=== PATIENT | female | born 1940 | race Caucasian/White ===

== ENCOUNTER → 2016-08-17 | Outpatient (CLI) | payer OTHER ==
[~2016-08-17] MED LIST: ASPCH81X PO; CHOL1TAB42 PO; CLOP1TAB15 PO; FAMO1TAB71 PO; LORA-741 PO; POTASSIUM PO
== END | disposition home or self-care (01) ==
LOC: C.LABSPEC 15:00
PROVIDERS: ATTEND Internal Medicine
DX: N39.0 Urinary tract infection, site not specified (principal)

== ENCOUNTER → 2016-08-27 | Outpatient (CLI) | payer OTHER | END | disposition home or self-care (01) | LOC: C.LABSPEC 13:00 | PROVIDERS: ATTEND Internal Medicine | DX: N39.0 Urinary tract infection, site not specified (principal) ==

== ENCOUNTER → 2016-11-12 | Outpatient (CLI) | payer OTHER ==
[2016-11-12 14:53] LABS: BASO % 0.3 %; BASO ABS # 0.02 K/uL (0-0.2); COMPLETE YES; HEMATOCRIT 37.8 % (37-47); IG% 0.2 %; LYMPH % 28.9 %; MEAN CELL VOLUME 88.5 fL (80-100); MEAN CORPUSCULAR HEMOGLOBIN 28.3 pg (25-34); MONO % 6.6 %; PLATELET COUNT 265 K/uL (130-400); RED BLOOD COUNT 4.27 M/uL (4.2-5.4); WHITE BLOOD COUNT 6.23 K/uL (4.8-10.8)
[2016-11-12 15:07] LABS: ALT/SGPT 27 U/L (12-78); AST/SGOT 15 U/L (15-37); BLOOD UREA NITROGEN 14 mg/dl (7-18); BUN/CREATININE RATIO 11.6 (10-20); CARBON DIOXIDE 28 mmol/L (21-32); CHLORIDE 104 mmol/L (98-107); CHOLESTEROL 243 mg/dl (0-200); GLUCOSE 113 mg/dl (70-99); SODIUM 140 mmol/L (136-145)
[2016-11-12 15:16] LABS: CALCIUM 9.5 mg/dl (8.5-10.1)
[2016-11-12 15:17] LABS: ALB/GLOB RATIO 1.1 (0.9-2); ALKALINE PHOSPHATASE 76 U/L (45-117); CHOLESTEROL/HDL RATIO 4.3; HDL CHOLESTEROL 56 mg/dl; TRIGLYCERIDES 200 mg/dl (0-150); VERY LOW DENSITY LIPOPROT CALC 40 mg/dl
== END | disposition home or self-care (01) ==
LOC: C.LABSPEC 14:39
PROVIDERS: ATTEND Internal Medicine
DX: E55.9 Vitamin D deficiency, unspecified (principal); E78.5 Hyperlipidemia, unspecified; R53.83 Other fatigue; M19.90 Unspecified osteoarthritis, unspecified site

== ENCOUNTER → 2016-12-23 | Outpatient (CLI) | payer OTHER ==
--- NOTE | 2016-12-23 16:15 | MAMMOGRAPHY REPORT ---
BILATERAL DIGITAL SCREENING MAMMOGRAM WITH CAD: 12/23/2016 CLINICAL HISTORY: Routine screening. Patient has no complaints. TECHNIQUE: Bilateral CC and MLO views were obtained. Current study was also evaluated with a Computer Aided Detection (CAD) system. COMPARISON: Comparison is made to exams dated: 12/17/2015 mammogram, 03/27/2014 mammogram, 02/28/2013 david mogram, 02/29/2012 mammogram, and 02/24/2012 mammogram - [facility]. BREAST COMPOSITION: The tissue of both breasts is heterogeneously dense, which may obscure small mas ses. FINDINGS: There is stable nodularity bilaterally. There are benign calcifications and minimal vascul ar calcification in the breasts. No suspicious spiculated or irregular mass, architectural distortio n or cluster of new, suspicious microcalcifications is seen. IMPRESSION: ACR BI-RADS CATEGORY 1: NEGATIVE There is no mammographic evidence of malignancy. A 1 year screening mammogram is recommended. The pa tient will receive written notification of the results. Approximately 10% of breast cancers are not detected with mammography. A negative mammographic report should not delay biopsy if a clinically suggestive mass is present. Tamika Benson M.D. ay/:12/23/2016 15:59:06 Manager [employer]: Charla RUIZ(R)(M), [facility] letter sent: Normal 1/2 BI-RADS Code: ACR BI-RADS Category 1: Negative
== END | disposition home or self-care (01) ==
LOC: C.MAMM 13:41
PROVIDERS: ATTEND Internal Medicine
DX: Z12.31 Encounter for screening mammogram for malignant neoplasm of breast (principal)

== ENCOUNTER → 2017-01-14 | Outpatient (CLI) | payer OTHER ==
[2017-01-14 12:41] LABS: BASO % 0.3 %; BASO ABS # 0.02 K/uL (0-0.2); COMPLETE YES; EOS % 0.7 %; HEMATOCRIT 39.2 % (37-47); IG% 0.3 %; LYMPH % 25.6 %; MEAN CELL VOLUME 87.3 fL (80-100); MEAN CORPUSCULAR HEMOGLOBIN 27.8 pg (25-34); MEAN CORPUSCULAR HGB CONC 31.9 g/dl (32-36); MEAN PLATELET VOLUME 9.8 fL (7.4-10.4); MONO % 6.1 %; PLATELET COUNT 302 K/uL (130-400); RED BLOOD COUNT 4.49 M/uL (4.2-5.4); WHITE BLOOD COUNT 7.03 K/uL (4.8-10.8)
[2017-01-14 13:01] LABS: ALT/SGPT 23 U/L (12-78); AMYLASE 50 U/L (25-115); AST/SGOT 16 U/L (15-37); BLOOD UREA NITROGEN 12 mg/dl (7-18); BUN/CREATININE RATIO 8.4 (10-20); CALCIUM 9.6 mg/dl (8.5-10.1); CARBON DIOXIDE 27 mmol/L (21-32); CHLORIDE 104 mmol/L (98-107); GLUCOSE 104 mg/dl (70-99); SODIUM 140 mmol/L (136-145)
[2017-01-14 13:04] LABS: ALKALINE PHOSPHATASE 66 U/L (45-117)
[2017-01-14 13:11] LABS: ESTIMATED AVERAGE GLUCOSE 134 mg/dl; HA1C FLAG Normal (Normal)
--- NOTE | 2017-01-18 12:37 | CODING QUERY MEDICAL NECESSITY ---
SUPPORTING DIAGNOSIS NEEDED A supporting diagnosis is required for the test/procedure performed on this patient in order for us to be reimbursed by the patient's insurance. Please provide a supporting diagnosis for the following test/procedure listed below next to the test name along with your signature. *If there is no additional diagnosis for this patient that would support the following test/procedure please document that below next to the test/procedure. Test(s)/Procedure(s) that require a supporting diagnosis: * HEMOGLOBIN A1C DIAGNOSIS: Provider Signature: Date: Thank you Michelle Upton [employer] Once completed, please kindly fax back to [phone] For questions please call [phone]
== END | disposition home or self-care (01) ==
LOC: C.LABSPEC 12:19
PROVIDERS: ATTEND Internal Medicine
DX: R10.9 Unspecified abdominal pain (principal); R53.83 Other fatigue; R73.9 Hyperglycemia, unspecified

== ENCOUNTER → 2017-07-21 | Outpatient (CLI) | payer OTHER ==
[~2017-07-21] MED LIST changes: +FAMO-103 PO; -FAMO1TAB71 PO
== END | disposition home or self-care (01) ==
LOC: C.LABSPEC 14:48
PROVIDERS: ATTEND Internal Medicine
DX: N39.0 Urinary tract infection, site not specified (principal)

== ENCOUNTER → 2017-10-31 | Outpatient (CLI) | payer OTHER ==
--- NOTE | 2017-10-31 15:15 | DIAGNOSTIC IMAGING REPORT ---
L-SPINE MIN 4 VIEWS ROUTINE HISTORY: 77 years-old Female LUMBAR RADICULOPATHY acute low back pain COMPARISON: Lumbar spine radiographs 01/23/2016 TECHNIQUE: 5 views of the lumbar spine FINDINGS: There are 5 nonrib-bearing lumbar type vertebral segments present. 5 mm anterolisthesis L5 on S1 has progressed from prior study. No definite spondylolysis. Moderate to severe intervertebral disc space narrowing at L1-L2 has also progressed from prior. Mild multilevel endplate spurring with mostly moderate multilevel facet arthrosis. No acute compression deformity. IMPRESSION: 1. No acute fracture identified. 2. 5 mm anterolisthesis L5 on S1 is likely degenerative in nature. 3. Multilevel degenerative changes of the lumbar spine as above. The above report was generated using voice recognition software. It may contain grammatical, syntax or spelling errors. Electronically signed by: Kevin Muse M.D. 10/31/2017 3:13 PM Dictated Date/Time: 10/31/2017 3:11 PM
== END | disposition home or self-care (01) ==
LOC: C.RAD 14:38
PROVIDERS: ATTEND Internal Medicine
DX: M54.16 Radiculopathy, lumbar region (principal)

== ENCOUNTER 2019-06-12 09:08 | Inpatient (IN) ==
[2019-06-12] MEDS ORDERED: SODIUM CHLORIDE 0.9% 500 ML IV ONE (09:44)
--- NOTE | 2019-06-12 09:56 | XRay Report ---
SINGLE VIEW CHEST CLINICAL HISTORY: Atypical chest pain. FINDINGS: An AP, portable, upright chest radiograph is compared to study dated 01/05/2018. The cardiom ediastinal silhouette is top normal for projection. The mitral annulus is densely calcified. Chronic interstitial thickening and chronic elevation of the right hemidiaphragm are similar to previous. No airspace consolidation or large pleural effusion is identified. No pneumothorax is seen. The skeletal structures are osteopenic. The bony thorax is grossly intact. IMPRESSION: No active disease in the chest. Electronically signed by: Tal Tejeda M.D. 06/12/2019 9:54 AM
[2019-06-12] MEDS ORDERED: ACETAMINOPHEN 1,000 MG/100 ML VIAL IV STA (10:05)
[2019-06-12 10:09] LABS: Basophils # (auto) 0.02 K/uL (0-0.2); Basophils % (auto) 0.2 %; Eosinophils # (auto) 0.02 K/uL (0-0.5); Eosinophils % (auto) 0.2 %; Hematocrit (blood only) 35.1 % (37-47); Hemoglobin 11.4 g/dL (12.0-16.0); Immature Granulocytes # (auto) 0.03 K/uL (0.00-0.02); Immature Granulocytes % (auto) 0.2 %; Lymphocytes # (auto) 0.93 K/uL (1.2-3.4); Mean Corpuscular Hemoglobin 28.4 pg (25-34); Mean Corpuscular Hgb Conc 32.5 g/dL (32-36); Mean Corpuscular Volume 87.5 fL (80-100); Mean Platelet Volume 9.8 fL (7.4-10.4); Monocytes # (auto) 0.94 K/uL (0.11-0.59); Monocytes % (auto) 7.1 %; Neutrophils # (auto) 11.32 K/uL (1.4-6.5); Neutrophils % (auto) 85.3 %; Platelet Count 253 K/uL (130-400); RDW Coefficient of Variation 15.2 % (11.5-14.5); RDW Standard Deviation 49.4 fL (36.4-46.3); Red Blood Count 4.01 M/uL (4.2-5.4); White Blood Count 13.26 K/uL (4.8-10.8)
[2019-06-12 10:24] LABS: Alanine Aminotransferase 16 U/L (12-78); Albumin Level 3.5 gm/dl (3.4-5.0); Aspartate Aminotransferase 14 U/L (15-37); BUN Creatinine Ratio 12.7 (10-20); Blood Urea Nitrogen 15 mg/dl (7-18); Calcium 9.2 mg/dl (8.5-10.1); Carbon Dioxide 25 mmol/L (21-32); Chloride 105 mmol/L (98-107); Creatinine Clr Calc Pharmacy 42.8 ml/min; Est GFR (African American) 51.9; Est GFR (Non-African American) 44.8; Glucose 97 mg/dl (70-99); Lipase 120 U/L (73-393); Sodium 136 mmol/L (136-145)
[2019-06-12 10:35] LABS: Albumin Globulin Ratio 0.9 (0.9-2); Alkaline Phosphatase 67 U/L (45-117); Bilirubin,Total 0.7 mg/dl (0.2-1); Phosphorus 2.5 mg/dl (2.5-4.9); Total Protein 7.5 gm/dl (6.4-8.2); Troponin I < 0.015 ng/ml (0-0.045)
[2019-06-12] MEDS ORDERED: OPTIRAY 320 125ml IV PRN (10:56)
--- NOTE | 2019-06-12 11:04 | CT Scan Report ---
CT abd pelvis IV con only CT DOSE: HISTORY: Dyspnea right flank pain TECHNIQUE: Multiaxial CT images of the abdomen and pelvis were performed following the use of intrave nous contrast. A dose lowering technique was utilized adhering to the principles of ALARA. COMPARISON STUDY: None. FINDINGS: Small parenchymal infiltrate right base. Mild bibasilar emphysematous change. Trace pleural fluid right base. Mild fatty replacement of the liver. Potential early cirrhotic change. Spleen is unremarkable. Mild hyperplastic change of the left adrenal gland. Small bilateral renal cysts. Moderate renal cortical scarring bilaterally. No evidence for hydronephr osis. Nonobstructive bowel pattern. Normal appendix. No significant abdominal pelvic or inguinal adenopathy . IMPRESSION: 1. No acute process of the abdomen or pelvis. 2. Parenchymal infiltrate right lung base combined with a very small right pleural effusion. The above report was generated using voice recognition software. It may contain grammatical, syntax or spelling errors. Electronically signed by: Сергей Bowles M.D. 06/12/2019 11:02 AM
--- NOTE | 2019-06-12 11:25 | CT Scan Report ---
CT angio chest PE protocol CT DOSE: 1142.82 mGy.cm HISTORY: 78 years-old Female with PE. Acute atypical chest pain TECHNIQUE: Multiple CTA images of the chest were obtained after the intravenous administration of 118 ml Optiray 320. Coronal and sagittal MIPS were obtained from the axial data set and were submitted for review. All measurements were obtained according to NASCET criteria. A dose lowering technique w as utilized adhering to the principles of ALARA. COMPARISON: CT abdomen and pelvis and chest radiograph of same day FINDINGS: CTA: Mild to moderate cardiomegaly. No pericardial effusion. Mitral annular calcifications are noted. Ther e is no thoracic aortic aneurysm or dissection. There is patency of the imaged great vessels. Mild to rtuosity of the descending thoracic aorta. Extensive bilateral pulmonary emboli noted involving the l obar, segmental and subsegmental branches throughout the right lung, segmental and subsegmental branc hes of the left lower lobe. Right left main pulmonary arteries are unremarkable. No evidence of right heart strain. Fluid that CT CHEST: Unremarkable thyroid. Nonspecific mildly enlarged subcarinal and right hilar lymph nodes measure up t o 11 mm. Small left Bochdalek hernia. Trace right pleural effusion with right lung base consolidative and alveolar opacities. There is mild bilateral bronchial wall thickening. There is no overt pulmona ry edema, suspicious pulmonary nodule or mass identified. Indeterminate 4 mm subpleural solid nodule of the basal right lower lobe, image 77 series 4. Moderate hiatal hernia. 1.3 cm left adrenal gland adenoma. Mild hepatic steatosis. Soft tissues are w ithin normal limits. Degenerative changes of the shoulders and spine. There are no suspicious bone le sions identified. Mild convex right curvature of the midthoracic spine. IMPRESSION: 1. Extensive right greater than left pulmonary emboli as above. 2. Trace right pleural effusion with right lung base opacities suggestive of atelectasis and/or devel oping pulmonary infarction. 3. Cardiomegaly without acute aortic pathology. 4. 4 mm solid nodule the right lower lobe. 5. Additional findings as above. Please refer to below summary of Fleischner criteria recommendations for follow-up of incidental CT n odules (Nando Woody, Guidelines for management of small pulmonary nodules detected on CT scans: A sta tement from the Fleischner Society, Radiology 237: [phone].) SOLID NODULES Solitary nodule size: <6 mm * Low risk patients: no follow-up needed * high risk patients: optional CT at 12 months Note: newly detected indeterminate nodule in persons 35 years of age or older. * Low risk patients: minimal or absent history of smoking and/or other known risk factors * high risk patients: history of smoking or of other known risk factors (e.g. first degree relative with lung cancer, or exposure to asbestos, radon, uranium) * if a nodule up to 8 mm is partly solid or is ground glass further follow-up is required after 24 m onths to exclude possible slow growing adenocarcinoma ([place]ISETTE) The above report was generated using voice recognition software. It may contain grammatical, syntax o r spelling errors. Electronically signed by: Kevin Muse M.D. 06/12/2019 11:24 AM
[2019-06-12 11:47] LABS: Appearance Urine Clear (Clear); Bilirubin Urine Negative (Negative); Blood Urine Negative (Negative); Color Urine Yellow; Glucose Urine UA Negative (Negative); Ketones Urine 2+ (Negative); Leukocyte Esterase Urine Negative (Negative); Nitrite Urine Negative (Negative); Protein Urine Negative (Negative); Urobilinogen Urine Negative (Negative); pH Urine 5.5 (4.5-7.5)
[2019-06-12 12:18] LABS: INR 1.1 (0.9-1.1); Partial Thromboplastin Ratio 1.1; Partial Thromboplastin Time 29.6 Seconds (21.0-31.0); Prothrombin Time 11.1 Seconds (9.0-12.0)
[2019-06-12] MEDS ORDERED: HEPARIN SOD 5,000 UNIT/0.5 ML VIAL ONE (12:32)
--- NOTE | 2019-06-12 12:39 | History & Physical Report ---
Date of Service June 12, 2019 Assessment & Plan (1) Pulmonary emboli: Uncertain etiology but has had several episodes of blood clots in her life, mother with hx of blood clots as well Hypercoag workup pending Heparing gtt with transition to coumadin, 10mg today and tomorrow INR on 06/14 LE US pending given LE pain (2) Recurrent UTI: Has been on nitrofurantoin since 03/20 and no further issues UA on admission is neg (3) Amaurosis fugax of left eye: due to retinal clot Plavix, aspirin 81mg--continue (4) Anxiety: PRN ativan States she takes QD (5) Lung nodule: Noted on CTA Pt has no personal hx of smoking, but does have second hand smoke exposure from a father who smoked in the home and a who did the same x6 yrs before he quit 4mm is noted to be of concern in a pt with risk factors with f/u CT in 12 months If no genetic predisposition for clotting, may need t/c lung cancer as cause for clotting (6) Hx of blood clots: No hx of genetic testing Not currently on anticoagulation (7) DVT prophylaxis: Heparin for DVT proph History of Present Illness Primary Care Provider: Nicolas Moreno MD 78 y/o F c/o R sided back pain. Pt states she has been having this pain for at least a week. It initially would come and go, but has been more constant and intense since Tuesday. Pain is most intense to the R mid back, below the scapula, but she has also had some anterior pain at times. It is worse when she takes a deep breath or tries to lie flat. Pt also has noted that when she is walking around, she feels like she needs to take a deep breath as if she cannot get enough air. No kennedy SOB or RIVAS, but she does note that she can barely make it through a shower without feeling like she needs to sit down and rest. This is all new for her. She has been having LE pain that she thought was arthritis for the last few weeks as well. She has no other concerns at this time. Pt denies fever, abd pain, n/v/c/d, LE or swelling. Pt states that she has had blood clots several times in her life, but only in her LE. The first was while she was still in the hospital after the of a child, but she has had others since. No hx of PE that she is aware of. 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 She was put on plavix at that time. She states her mother had blood clots as well. Allergies Allergy/AdvReac Type Severity Reaction Status Date / Time Sulfa (Sulfonamide Allergy Mild HEADACHE, Verified 06/12/19 11:14 Antibiotics) VERTIGO Home Medications Home Medications Medication Instructions Recorded Confirmed Type clopidogrel 75 mg PO HS 06/12/19 06/12/19 History famotidine 40 mg PO HS 06/12/19 06/12/19 History lorazepam 0.5 mg PO TID PRN 06/12/19 06/12/19 History nitrofurantoin macrocrystal 50 mg PO HS 06/12/19 06/12/19 History paroxetine HCl 20 mg PO HS 06/12/19 06/12/19 History Past Med/Surg History Medical History Blind left eye Fibula fracture (Acute) Hx of blood clots Hx: UTI (urinary tract infection) Family History (Updated 06/12/19 @ 12:35 by Michelle Shukla DO) Mother Blood clot in vein Father Myocardial infarction Social History (Updated 06/12/19 @ 12:35 by Michelle Shukla DO) Preferred Language: Pashto Communication Ability: Effective Mis Manager Required: No Beliefs That Will Affect Care: None marital status: / Current Living Situation: Alone current occupational status: retired Other Information That Helps Us Care for You: No Feels Safe at Home: Yes Safety Concerns: Feels Safe At This Time Smoking Status: Never smoker Hx Alcohol Use: No Hx Substance Use: No Review of Systems Review of Systems: Pertinent positives and negatives reviewed in HPI--all others negative Physical Exam Constitutional: WD/WN, vitals as above Eyes: normal visual castillo by confrontation and + anicteric sclerae Neck: normal visual inspection and trachea midline Respiratory: normal respiratory effort; no respiratory distress Auscultation: + crackles (R base); no diminished lung sounds and no wheezes Cardiovascular: Rate/Rhythm: regular rate and regular rhythm Gastrointestinal (Abdomen): Inspection/Auscultation: abdomen not distended Percussion/Palpation: abdomen soft; abdomen nontender Musculoskeletal: Head/Neck/Chest: normocephalic and head atraumatic negative for edema, peripheral pulses intact NonTTP Skin: no rashes, warm and dry Neurologic: awake; not confused Speech / Cognition: normal speech Psychiatric: A+Ox3, euthymic affect Results & Data Vital Signs (Past 12 Hours) Vital Signs Temp Pulse Resp BP Pulse Ox 06/12/19 11:31 85 20 161/123 H 96 06/12/19 10:31 78 22 146/67 H 95 06/12/19 10:01 88 22 105/74 99 06/12/19 09:55 94 06/12/19 09:15 36.5 C 94 H 18 153/84 H 98 Diagnostic Findings CXR: neg for acute CTA: b/l R>L PE CTAP: R base pleural effusion, small ECG Rhythm: normal sinus Code Status & VTE Plan Code Status Full code, although pt states no prolonged mechanical life support, feeding tubes, etc VTE Prophylaxis Plan VTE Prophylaxis will be ordered: Yes PG Care Time/CCT Total # of Minutes Spent Total Time Spent with Patient: Total time spent is greater than 50% in coordination of care (as documented) at patient's floor/unit and/or counseling patient:
[2019-06-12] MEDS: HEPARIN SODIUM/DEXTROSE 25,000 UNITS/500 ML BAG IV SCH (12:42)
[2019-06-12] MEDS ORDERED: Heparin IV BOLUS 0 units in Syringe 0 mL IV STA (13:04)
[2019-06-12] MEDS ORDERED: ONDANSETRON INJ 2 MG/ML 2 ML VIAL IV PRN (15:20)
[2019-06-12] MEDS ORDERED: ACETAMINOPHEN 325 MG TAB PO PRN (15:20)
[2019-06-12] MEDS ORDERED: MAGNESIUM HYDROXIDE SUSP 30 ML UDC PO PRN (15:20)
[2019-06-12] MEDS ORDERED: WARFARIN SOD 10 MG TAB PO ONE (15:30)
--- NOTE | 2019-06-12 18:46 | Ultrasound Report ---
BILATERAL LOWER EXTREMITY VENOUS DOPPLER HISTORY: Lower extremity pain. Pulmonary embolus. COMPARISON STUDY: None. FINDINGS: Linear echogenic focus within the right peroneal veins consistent with chronic nonocclusive thrombus. The remaining bilateral lower extremity venous systems are patent. IMPRESSION: 1. No acute DVT identified within the right or left lower extremity. 2. Nonocclusive linear echogenic focus within the right peroneal veins consistent with chronic thromb us. Electronically signed by: Crescencio Lynch M.D. 06/12/2019 6:44 PM
--- NOTE | 2019-06-12 18:57 | Emergency Department Note ---
Entered by Ryanne Paz acting as a scribe for History of Present Illness General Chief complaint: Shortness of Breath/Dyspnea Stated complaint: PAIN IN RIGHT SIDE Time Seen by Provider: 06/12/19 09:43 Source: patient History of Present Illness Onset (ago): day(s) (yesterday) Location: chest Pain Consistency: + other (episode) Maximum Pain Intensity: 5 Quality: + other (shortness of breath) Exacerbated By: + other (deep breathing) Associated symptoms: + denies other symptoms (congestion, diarrhea, hematuria), + nausea/vomiting (Positive nausea. Negative vomiting. ) and + other (right knee pain, low back pain, right side pain, right shoulder pain); no cough and no fever/chills The patient is a 78 year old female who presents to the Emergency Room with complaints of an episode of shortness of breath starting yesterday. The patient states that 2 days ago she noticed this pain in right knee that then moved to her lower back. She states that yesterday it moved into her right side. She states that when it moved to her right side, it made her have shortness of breath. She states that when she takes a deep breath, it also makes the pain worse. The patient notes that she hasnt had chronic back pain, but has had it when she has had raging UTIs in the past. She notes that she is unsure if this feels the same as she didnt really know she had a UTI before. The patient complains of nausea and right shoulder pain this morning. The patient notes that she is on Plavix and a baby aspirin. The patient denies fever, chills, cough, congestion, diarrhea, vomiting, hematuria, a history of kidney stones, and a history of atrial fibrillation. Home Medications Home Medications Medication Instructions Recorded Confirmed Type clopidogrel 75 mg PO HS 06/12/19 06/12/19 History famotidine 40 mg PO HS 06/12/19 06/12/19 History lorazepam 0.5 mg PO TID PRN 06/12/19 06/12/19 History nitrofurantoin macrocrystal 50 mg PO HS 06/12/19 06/12/19 History paroxetine HCl 20 mg PO HS 06/12/19 06/12/19 History Allergies Allergy/AdvReac Type Severity Reaction Status Date / Time Sulfa (Sulfonamide Allergy Mild HEADACHE, Verified 11/19/19 11:14 Antibiotics) VERTIGO Past Med/Surg History Medical History Amaurosis fugax of left eye Anxiety Blind left eye Fibula fracture (Acute) Hx of blood clots Hx: UTI (urinary tract infection) Lung nodule Pulmonary emboli Recurrent UTI Family History Mother Blood clot in vein Father Myocardial infarction Social History Preferred Language: Hungarian Communication Ability: Effective 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 and A total of 10 systems reviewed and were otherwise negative Physical Exam Vital Signs Vital Signs - 24 hr 06/12/19 09:15 06/12/19 09:26 06/12/19 09:55 Temperature 36.5 C Temperature Source Oral Pulse Rate 94 H Pulse Rate from SpO2 Sensor Respiratory Rate 18 Respiratory Depth Normal Blood Pressure 153/84 H Blood Pressure Mean 107 Blood Pressure Position Sitting Pulse Oximetry 98 94 Oxygen Delivery Method Room Air Room Air Room Air Sepsis Recent Fever Within 48 Hours No Sepsis New/Unexplained Change in Mental Status No Sepsis Action Taken by Nursing No Action Required 06/12/19 10:01 06/12/19 10:31 06/12/19 11:31 Temperature Temperature Source Pulse Rate 88 78 85 Pulse Rate from SpO2 Sensor 93 H 78 84 Respiratory Rate 22 22 20 Respiratory Depth Blood Pressure 105/74 146/67 H 161/123 H Blood Pressure Mean 82 102 129 Blood Pressure Position Pulse Oximetry 99 95 96 Oxygen Delivery Method Room Air Sepsis Recent Fever Within 48 Hours Sepsis New/Unexplained Change in Mental Status Sepsis Action Taken by Nursing GENERAL: Awake, alert, fatigued-appearing, in no distress HENT: Normocephalic, atraumatic. Oropharynx with dry mucous membranes and otherwise unremarkable. EYES: Normal conjunctiva. Sclera non-icteric. NECK: Supple. No nuchal rigidity. FROM. No JVD. RESPIRATORY: Diminished breath sounds at the right base, otherwise clear. CARDIAC: Regular rate, normal rhythm. Extremities warm and well perfused. Pulses equal. ABDOMEN: Soft, non-distended. No tenderness to palpation. No rebound or guarding. No masses. RECTAL: Deferred. MUSCULOSKELETAL: Chest examination reveals no tenderness. The back is symmetrical on inspection without obvious abnormality. There is no CVA tende rness to palpation. No joint edema. LOWER EXTREMITIES: Calves are equal size bilaterally and non-tender. No edema. No discoloration. NEURO: Normal sensorium. No sensory or motor deficits noted. SKIN: No rash or jaundice noted. Course Course 1000: The patient was evaluated in room A10. A complete history and physical exam was performed. 1141: I discussed the patient's [facility] She w ill evaluate the patient for further management. 1157: I reevaluated the patient and updated her on her test results. I discussed the treatment plan with her. She verbally agrees and understands. Administered Medications Clopidogrel Bisulfate (Plavix) 75 mg PO HS [facility] Stop: 07/12/19 20:59 Last Admin: 06/12/19 20:22 Dose: 75 mg Documented by: [id number] Famotidine (Pepcid) 40 mg PO HS NATHALIA Stop: 07/12/19 20:59 Last Admin: 06/12/19 20:21 Dose: 40 mg Documented by: [id number] Heparin Sodium/Dextrose (Heparin Sodium/Dextrose) 25,000 units in 500 mls @ 24 mls/hr IV .[id number] NATHALIA; Protocol Stop: 07/12/19 11:59 Last Titration: 06/12/19 19:33 Dose: 1,200 units/hr, 24 mls/hr Documented by: [id number] Cosigned by: [id number] Admin: 06/12/19 12:42 Dose: 1,200 units/hr, 24 mls/hr Documented by: [id number] Cosigned by: [id number] Ioversol (Optiray 320 125ml) 118 ml IV ONCE PRN PRN Reason: Interaction Checking Stop: 06/16/19 10:55 Last Admin: 06/12/19 10:56 Dose: 118 ml Documented by: [id number] Nitrofurantoin Macrocrystals (Macrodantin) 50 mg PO HS [facility] Stop: 06/22/19 20:59 Last Admin: 06/12/19 20:21 Dose: 50 mg Documented by: [id number] Paroxetine HCl (Paxil) 20 mg PO HS NATHALIA Stop: 07/12/19 20:59 Last Admin: 06/12/19 20:21 Dose: 20 mg Documented by: [id number] Discontinued Medications Heparin Sodium (Porcine) (Heparin Sodium (Porcine)) Confirm Administered Dose 5,000 units .ROUTE .STK-MED ONE Stop: 06/12/19 12:33 Last Admin: 06/12/19 12:41 Dose: 5,000 units Documented by: [id number] Cosigned by: [id number] Heparin Sodium/Dextrose () 1 ea IV NOW STA; Protocol Stop: 06/12/19 11:51 Last Admin: 06/12/19 13:03 Dose: Not Given Documented by: [id number] Sodium Chloride (Nss) 500 mls @ 999 mls/hr IV .Q31M ONE Stop: 06/12/19 10:14 Last Infusion: 06/12/19 10:34 Dose: 0 mls/hr Documented by: [id number] Admin: 06/12/19 10:01 Dose: 999 mls/hr Documented by: [id number] Acetaminophen (Ofirmev) 1,000 mg in 100 mls @ 400 mls/hr IV NOW STA Stop: 06/12/19 10:19 Last Infusion: 06/12/19 10:30 Dose: 0 mls/hr Documented by: [id number] Admin: 06/12/19 10:11 Dose: 400 mls/hr Documented by: [id number] Warfarin Sodium (Coumadin) 10 mg PO NOW ONE Stop: 06/12/19 15:31 Last Admin: 06/12/19 16:28 Dose: 10 mg Documented by: [id number] Critical Care Time Critical Care Time: Yes Total Critical Care Time: 40 I have personally spent 40 minutes of critical care time in the direct management of this patient. This includes bedside care, interpretation of diagnostic studies, and testing, discussion with consultants, patient, and family members, and other required patient management activities. This 40 minutes is in excess of all separately billable procedures. Medical Decision Making Differential Diagnosis Differential diagnoses includes but is not limited to pneumonia, bronchitis, COPD/Asthma exacerbation, pneumothorax, pulmonary embolism, congestive heart failure, acute coronary syndrome Medical Records Attestation: I reviewed the patient's medical records. Home Medications Current Medication List: was personally reviewed by me Laboratory Data Attestation: I reviewed the patient's lab results. Result diagrams: 06/12/19 09:53 06/12/19 09:53 Lab Results 06/12/19 06/12/19 06/12/19 Range/Units 09:53 09:53 11:10 WBC 13.26 H (4.8-10.8) K/uL RBC 4.01 L (4.2-5.4) M/uL Hgb 11.4 L (12.0-16.0) g/dL Hct 35.1 L (37-47) % MCV 87.5 (80-100) fL MCH 28.4 (25-34) pg MCHC 32.5 (32-36) g/dL RDW Std Deviation 49.4 H (36.4-46.3) fL RDW Coeff of Alice 15.2 H (11.5-14.5) % Plt Count 253 (130-400) K/uL MPV 9.8 (7.4-10.4) fL Immature Gran % (Auto) 0.2 % Neut % (Auto) 85.3 % Lymph % (Auto) 7.0 % [place] % (Auto) 7.1 % Eos % (Auto) 0.2 % Baso % (Auto) 0.2 % Immature Gran # (Auto) 0.03 H (0.00-0.02) K/uL Neut # (Auto) 11.32 H (1.4-6.5) K/uL Lymph # (Auto) 0.93 L (1.2-3.4) K/uL [place] # (Auto) 0.94 H (0.11-0.59) K/uL Eos # (Auto) 0.02 (0-0.5) K/uL Baso # (Auto) 0.02 (0-0.2) K/uL PT (9.0-12.0) Seconds INR (0.9-1.1) APTT (21.0-31.0) Seconds PTT Ratio Sodium 136 (136-145) mmol/L Potassium 4.0 (3.5-5.1) mmol/L Chloride 105 (98-107) mmol/L Carbon Dioxide 25 (21-32) mmol/L Anion Gap 6.0 (3-11) BUN 15 (7-18) mg/dl Creatinine 1.18 (0.6-1.2) mg/dl Est Cr Clr Drug Dosing 42.8 ml/min Est GFR ( Amer) 51.9 Est GFR (Non-Af Amer) 44.8 BUN/Creatinine Ratio 12.7 (10-20) Glucose 97 (70-99) mg/dl Calcium 9.2 (8.5-10.1) mg/dl Phosphorus 2.5 (2.5-4.9) mg/dl Magnesium 2.0 (1.8-2.4) mg/dl Total Bilirubin 0.7 (0.2-1) mg/dl AST 14 L (15-37) U/L ALT 16 (12-78) U/L Alkaline Phosphatase 67 (45-117) U/L Troponin I < 0.015 (0-0.045) ng/ml Total Protein 7.5 (6.4-8.2) gm/dl Albumin 3.5 (3.4-5.0) gm/dl Globulin 4.0 (2.5-4.0) gm/dl Albumin/Globulin Ratio 0.9 (0.9-2) Lipase 120 (73-393) U/L TSH 1.460 (0.300-4.500) uIu/ml Urine Color Yellow Urine Appearance Clear (Clear) Urine pH 5.5 (4.5-7.5) Ur Specific [place] 1.010 (1.000-1.030) Urine Protein Negative (Negative) Urine Glucose (UA) Negative (Negative) Urine Ketones 2+ H (Negative) Urine Blood Negative (Negative) Urine Nitrite Negative (Negative) Urine Bilirubin Negative (Negative) Urine Urobilinogen Negative (Negative) Ur Leukocyte Esterase Negative (Negative) 06/12/19 Range/Units 11:50 WBC (4.8-10.8) K/uL RBC (4.2-5.4) M/uL Hgb (12.0-16.0) g/dL Hct (37-47) % MCV (80-100) fL MCH (25-34) pg MCHC (32-36) g/dL RDW Std Deviation (36.4-46.3) fL RDW Coeff of Alice (11.5-14.5) % Plt Count (130-400) K/uL MPV (7.4-10.4) fL Immature Gran % (Auto) % Neut % (Auto) % Lymph % (Auto) % [place] % (Auto) % Eos % (Auto) % Baso % (Auto) % Immature Gran # (Auto) (0.00-0.02) K/uL Neut # (Auto) (1.4-6.5) K/uL Lymph # (Auto) (1.2-3.4) K/uL [place] # (Auto) (0.11-0.59) K/uL Eos # (Auto) (0-0.5) K/uL Baso # (Auto) (0-0.2) K/uL PT 11.1 (9.0-12.0) Seconds INR 1.1 (0.9-1.1) APTT 29.6 (21.0-31.0) Seconds PTT Ratio 1.1 Sodium (136-145) mmol/L Potassium (3.5-5.1) mmol/L Chloride (98-107) mmol/L Carbon Dioxide (21-32) mmol/L Anion Gap (3-11) BUN (7-18) mg/dl Creatinine (0.6-1.2) mg/dl Est Cr Clr Drug Dosing ml/min Est GFR ( Amer) Est GFR (Non-Af Amer) BUN/Creatinine Ratio (10-20) Glucose (70-99) mg/dl Calcium (8.5-10.1) mg/dl Phosphorus (2.5-4.9) mg/dl Magnesium (1.8-2.4) mg/dl Total Bilirubin (0.2-1) mg/dl AST (15-37) U/L ALT (12-78) U/L Alkaline Phosphatase (45-117) U/L Troponin I (0-0.045) ng/ml Total Protein (6.4-8.2) gm/dl Albumin (3.4-5.0) gm/dl Globulin (2.5-4.0) gm/dl Albumin/Globulin Ratio (0.9-2) Lipase (73-393) U/L TSH (0.300-4.500) uIu/ml Urine Color Urine Appearance (Clear) Urine pH (4.5-7.5) Ur Specific [place] (1.000-1.030) Urine Protein (Negative) Urine Glucose (UA) (Negative) Urine Ketones (Negative) Urine Blood (Negative) Urine Nitrite (Negative) Urine Bilirubin (Negative) Urine Urobilinogen (Negative) Ur Leukocyte Esterase (Negative) Imaging Data Radiologist's Impression: Radiology results as stated below per my review and the radiologist's interpretation: SINGLE VIEW CHEST CLINICAL HISTORY: Atypical chest pain. FINDINGS: An AP, portable, upright chest radiograph is compared to study dated 01/05/2018. The cardiomediastinal silhouette is top normal for projection. The mitral annulus is densely calcified. Chronic interstitial thickening and chronic elevation of the right hemidiaphragm are similar to previous. No airspace consolidation or large pleural effusion is identified. No pneumothorax is seen. The skeletal structures are osteopenic. The bony thorax is grossly intact. IMPRESSION: No active disease in the chest. Electronically signed by: Tal Tejeda M.D. 06/12/2019 9:[address] angio chest PE protocol CT DOSE: 1142.82 mGy.cm HISTORY: 78 years-old Female with PE. Acute atypical chest pain TECHNIQUE: Multiple CTA images of the chest were obtained after the intravenous administration of 118 ml Optiray 320. Coronal and sagittal MIPS were obtained from the axial data set and were submitted for review. All measurements were obtained according to NASCET criteria. A dose lowering technique was utilized adhering to the principles of ALARA. COMPARISON: CT abdomen and pelvis and chest radiograph of same day FINDINGS: CTA: Mild to moderate cardiomegaly. No pericardial effusion. Mitral annular calcifications are noted. There is no thoracic aortic aneurysm or dissection. There is patency of the imaged great vessels. Mild tortuosity of the descending thoracic aorta. Extensive bilateral pulmonary emboli noted involving the lobar, segmental and subsegmental branches throughout the right lung, segmental and subsegmental branches of the left lower lobe. Right left main pulmonary arteries are unremarkable. No evidence of right heart strain. Fluid that CT CHEST: Unremarkable thyroid. Nonspecific mildly enlarged subcarinal and right hilar lymph nodes measure up to 11 mm. Small left Bochdalek hernia. Trace right pleural effusion with right lung base consolidative and alveolar opacities. There is mild bilateral bronchial wall thickening. There is no overt pulmonary edema, suspicious pulmonary nodule or mass identified. Indeterminate 4 mm subpleural solid nodule of the basal right lower lobe, image 77 series 4. Moderate hiatal hernia. 1.3 cm left adrenal gland adenoma. Mild hepatic steatosis. Soft tissues are within normal limits. Degenerative changes of the shoulders and spine. There are no suspicious bone lesions identified. Mild convex right curvature of the midthoracic spine. IMPRESSION: 1. Extensive right greater than left pulmonary emboli as above. 2. Trace right pleural effusion with right lung base opacities suggestive of atelectasis and/or developing pulmonary infarction. 3. Cardiomegaly without acute aortic pathology. 4. 4 mm solid nodule the right lower lobe. 5. Additional findings as above. Please refer to below summary of Fleischner criteria recommendations for follow- up of incidental CT nodules (Nando Woody, Guidelines for management of small pulmonary nodules detected on CT scans: A statement from the Fleischner Society, Radiology 237: [phone].) SOLID NODULES Solitary nodule size: <6 mm * Low risk patients: no follow-up needed * high risk patients: optional CT at 12 months Note: newly detected indeterminate nodule in persons 35 years of age or older. * Low risk patients: minimal or absent history of smoking and/or other known risk factors * high risk patients: history of smoking or of other known risk factors (e.g. first degree relative with lung cancer, or exposure to asbestos, radon, uranium) * if a nodule up to 8 mm is partly solid or is ground glass further follow-up is required after 24 months to exclude possible slow growing adenocarcinoma ([place]TE) The above report was generated using voice recognition software. It may contain grammatical, syntax or spelling errors. Electronically signed by: Kevin Muse M.D. 06/12/2019 11:[address] abd pelvis IV con only CT DOSE: HISTORY: Dyspnea right flank pain TECHNIQUE: Multiaxial CT images of the abdomen and pelvis were performed following the use of intravenous contrast. A dose lowering technique was utilized adhering to the principles of ALARA. COMPARISON STUDY: None. FINDINGS: Small parenchymal infiltrate right base. Mild bibasilar emphysematous change. Trace pleural fluid right base. Mild fatty replacement of the liver. Potential early cirrhotic change. Spleen is unremarkable. Mild hyperplastic change of the left adrenal gland. Small bilateral renal cysts. Moderate renal cortical scarring bilaterally. No evidence for hydronephrosis. Nonobstructive bowel pattern. Normal appendix. No significant abdominal pelvic or inguinal adenopathy. IMPRESSION: 1. No acute process of the abdomen or pelvis. 2. Parenchymal infiltrate right lung base combined with a very small right pleural effusion. The above report was generated using voice recognition software. It may contain grammatical, syntax or spelling errors. Electronically signed by: Сергей Bowles M.D. 06/12/2019 11:02 AM ECG Data Attestation: I personally reviewed and interpreted this ECG as follows: Indication: + SOB/dyspnea Rate (beats per minute): 81 Rhythm: + sinus rhythm ECG [place]: + Normal ECG ST segments: no ST depression and no ST elevation ECG Findings: + Other (nonspecific ST and T wave abnormalities, QT-c 464, QRS 76); no PACs and no PVCs Blood Pressure Blood Pressure Findings: Elevated blood pressure Blood Pressure Disposition: further management by hospitalist YOKO Gao The patient is a pleasant 78-year-old woman who presents emergency department with right lower chest pain and shortness of breath with increased pain with deep inspiration that has evolved over the past 2 hours per hpi. On arrival patient is no acute distress, afebrile stable vital signs. On exam patient has diminished breath sounds of the right base but is otherwise clear. EKG without overt acute ischemia. Chest x-ray negative for acute process. CTA performed which showed extensive bilateral pulmonary emboli right greater than left. There is possibility of early right basilar pulmonary infarction. WBC 13.2, nonspecific. H/H 11.4/35.1 similar to prior. Platelets wnl. Chemistry without acidosis. Electrolytes and LFTs unremarkable. UA negative for infection. Troponin negative. Patient is agreeable with plan for admission and treatment with anticoagulation. Case was discussed with Dr. Michelle Shukla, [facility] [place], who evaluate the patient for admission. We agreed to proceed with treatment for with IV heparin. Impression & Plan Bilateral pulmonary embolism, Pulmonary embolism with infarction, Pleuritic chest pain, Leukocytosis Discharge Plan Visit Data *Final* Discharge Date/Time: 06/12/19 14:30 Chief Complaint: Shortness of Breath/Dyspnea Stated Complaint: PAIN IN RIGHT SIDE ED Provider: Ag Abrams Discharge Problem: Bilateral pulmonary embolism, Pulmonary embolism with infarction, Pleuritic chest pain, Leukocytosis Patient Disposition: Admitted As Inpatient Discharge Instructions Interventions: ED Discharge Assessment Last Done: 06/12/19 14:30 The scribe's documentation has been prepared under my direction and personally reviewed by me in its entirety. I confirm that the note above accurately reflects all work, treatment, procedures, and medical decision making performed by me.
[2019-06-12 19:25] LABS: Partial Thromboplastin Ratio 1.7
[2019-06-12 19:31] LABS: Partial Thromboplastin Time 47.2 Seconds (21.0-31.0)
[2019-06-12] MEDS: FAMOTIDINE 20 MG TAB PO SCH (20:21)
[2019-06-12] MEDS: NITROFURANTOIN MACROCRYSTAL 50 MG CAP PO SCH (20:21)
[2019-06-12] MEDS: PARoxetine HCl 20 MG TAB PO SCH (20:21)
[2019-06-12] MEDS ORDERED: CLOPIDOGREL BISULFATE 75 MG TAB PO SCH (21:00)
[2019-06-12] MEDS: LORazepam 0.5 MG TAB PO PRN (22:39)
[2019-06-13 07:10] LABS: Basophils # (auto) 0.02 K/uL (0-0.2); Basophils % (auto) 0.2 %; Eosinophils # (auto) 0.02 K/uL (0-0.5); Eosinophils % (auto) 0.2 %; Hematocrit (blood only) 31.5 % (37-47); Hemoglobin 10.3 g/dL (12.0-16.0); Immature Granulocytes # (auto) 0.02 K/uL (0.00-0.02); Immature Granulocytes % (auto) 0.2 %; Lymphocytes # (auto) 1.57 K/uL (1.2-3.4); Lymphocytes % (auto) 19.1 %; Mean Corpuscular Hemoglobin 28.2 pg (25-34); Mean Corpuscular Hgb Conc 32.7 g/dL (32-36); Mean Corpuscular Volume 86.3 fL (80-100); Mean Platelet Volume 9.5 fL (7.4-10.4); Monocytes # (auto) 0.97 K/uL (0.11-0.59); Monocytes % (auto) 11.8 %; Neutrophils # (auto) 5.63 K/uL (1.4-6.5); Neutrophils % (auto) 68.5 %; Platelet Count 250 K/uL (130-400); RDW Coefficient of Variation 15.3 % (11.5-14.5); RDW Standard Deviation 49.1 fL (36.4-46.3); Red Blood Count 3.65 M/uL (4.2-5.4); White Blood Count 8.23 K/uL (4.8-10.8)
[2019-06-13 07:29] LABS: Partial Thromboplastin Ratio 2.6
[2019-06-13 07:36] LABS: BUN Creatinine Ratio 11.2 (10-20); Calcium 9.1 mg/dl (8.5-10.1); Creatinine Clr Calc Pharmacy 49.9 ml/min; Est GFR (African American) 62.6; Potassium 3.5 mmol/L (3.5-5.1)
[2019-06-13] MEDS: HEPARIN SODIUM/DEXTROSE 25,000 UNITS/500 ML BAG IV SCH (08:41)
[2019-06-13 09:21] LABS: Partial Thromboplastin Time 69.5 Seconds (21.0-31.0)
[2019-06-13 09:33] LABS: INR 1.3 (0.9-1.1); Prothrombin Time 12.8 Seconds (9.0-12.0)
--- NOTE | 2019-06-13 11:29 | Hospitalist Progress Note ---
Date of Service June 13, 2019 Assessment & Plan (1) Bilateral pulmonary embolism: 78yo female with PMHx of DVT, Hx of amaurosis fugaux, anxiety and recurrent UTIs who has bilateral PEs. 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 -No Hx of recent surgeries/immobility, no recent long trips. Extensive fam Hx. -CTA with noted PEs in R lobe> left -currently on heparin drip, transitioning to coumadin. -hypercoaguable workup pending given extensive personal and family Hx, and hence treatment with coumadin. -currently hemodynamically stable -will dc with warfarin and Lovenox bridge, close PCP followup for INR check and followup visit. 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 -will discontinue both while hospitalized -close PCP followup for restart. Hx of recurrent UTIs -Follows with urology -On daily Macrobid dose of 50mg -currently asymtomatic; UA clean -continue home Macrobid Anxiety -continue home Ativan prn Hx of lung nodules -noted on CT; stable -outpt PCP f/u FEN/GI: regular diet DVT prophylaxis: On heparin CODE STATUS: Full Dispo: home on anticoagulation pending overnight monitoring Supervising Physician Co-Signing Physician Notes Resident Physician Supervision Note: I independently interviewed and examined the patient and verified the wooten history and physical, reviewed labs and image studies, discussed the case with the resident Dr. Ochoa and agree with the findings and care plan. Subjective Pt seen this AM. States she had no acute events overnight. Still has some pleuritic chest pain when she takes a deep breath with coughing fits. No current SOB. States she has a significant family history for blood clots. Has personal Hx as well. No recent long trips; no recent surgeries or immobility; states she is very active. Denies any episodes of slurred speech, weakness, changes to vision or headaches. Denies any cough, runny nose, sore throat, abd pain, N/V, dysuria, hematuria, swelling or numbness and tingling in extremities. Review of Systems Review of Systems: All systems reviewed & are unremarkable except as noted in HPI & below Physical Exam Physical Exam: General: Alert, oriented. No acute distress Skin: No noted rashes or bruises Psych: Appropriate mood and affect Neuro: No gross deficits HEENT: NC/AT Chest: Nontender to palpation. CV: RRR, Normal s1, s2. No murmurs appreciated Resp: Breath sounds clear bilaterally except at right base. no increased effort of breathing at rest. Coughing fit when asked to take a deep breath Abdomen: Soft, nontender, nondistended. No guarding. No organomegaly appreciated. Extremities: No edema in lower extremities bilaterally. Results & Data Vital Signs (Past 12 Hours) Vital Signs Temp Pulse Pulse Resp BP Pulse Ox 06/13/19 07:55 36.9 C 77 18 186/87 H 94 06/13/19 04:15 36.7 C 79 16 156/80 H 95 06/12/19 23:59 85 06/12/19 23:25 37.2 C 84 19 142/80 H 92 Resident Activity Tracking Resident Involvement: Resident Care Provided Care Provided: Adult Hospital Medicine
[2019-06-13 14:41] LABS: Partial Thromboplastin Ratio 2.7
--- NOTE | 2019-06-13 14:51 | Discharge Summary ---
Date of Service June 14, 2019 Admission HPI Per Admitting Provider 78 y/o F c/o R sided back pain. Pt states she has been having this pain for at least a week. It initially would come and go, but has been more constant and intense since Tuesday. Pain is most intense to the R mid back, below the scapula, but she has also had some anterior pain at times. It is worse when she takes a deep breath or tries to lie flat. Pt also has noted that when she is walking around, she feels like she needs to take a deep breath as if she cannot get enough air. No kennedy SOB or RIVAS, but she does note that she can barely make it through a shower without feeling like she needs to sit down and rest. This is all new for her. She has been having LE pain that she thought was arthritis for the last few weeks as well. She has no other concerns at this time. Pt denies fever, abd pain, n/v/c/d, LE or swelling. Pt states that she has had blood clots several times in her life, but only in her LE. The first was while she was still in the hospital after the of a child, but she has had others since. No hx of PE that she is aware of. 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 She was put on plavix at that time. She states her mother had blood clots as well. Admission Exam Per Admitting Provider Constitutional: WD/WN, vitals as above Eyes: normal visual castillo by confrontation and + anicteric sclerae Neck: normal visual inspection and trachea midline Respiratory: normal respiratory effort; no respiratory distress Auscultation: + crackles (R base); no diminished lung sounds and no wheezes Cardiovascular: Rate/Rhythm: regular rate and regular rhythm Gastrointestinal (Abdomen): Inspection/Auscultation: abdomen not distended Percussion/Palpation: abdomen soft; abdomen nontender Musculoskeletal: Head/Neck/Chest: normocephalic and head atraumatic negative for edema, peripheral pulses intact NonTTP Skin: no rashes, warm and dry Neurologic: awake; not confused Speech / Cognition: normal speech Psychiatric: A+Ox3, euthymic affect Principal Diagnosis Pulmonary Emboli Discharge Exam General: Alert, oriented. No acute distress, sitting up in bed eating breakfast Skin: Has left arm bruise near antecubital fossa Psych: Appropriate mood and affect Neuro: No gross deficits HEENT: NC/AT Chest: Nontender to palpation. CV: RRR, Normal s1, s2. No murmurs appreciated Resp: Breath sounds with crackles noted on right, coughing when asked to take a deep breath. Abdomen: Soft, nontender, nondistended. No guarding. No organomegaly appreciated. Extremities: No edema in lower extremities bilaterally. Discharge Data Allergies Allergy/AdvReac Type Severity Reaction Status Date / Time Sulfa (Sulfonamide Allergy Mild HEADACHE, Verified 06/12/19 11:14 Antibiotics) VERTIGO Consultations 06/12/19 11:50 ED Decision to Admit Stat 06/12/19 15:20 Consult Case Management - Discharge Planning Routine Ordered Studies 06/12/19 10:05 CT abd pelvis IV con only Stat CT angio chest PE protocol Stat 06/12/19 15:20 US venous doppler LE Stat Hospital Course (1) Bilateral pulmonary embolism: 78yo female with PMHx of DVT, Hx of amaurosis fugaux, anxiety and recurrent UTIs who has bilateral PEs. Admitted on June 12 and discharged on June 14, 2019. 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 -No Hx of recent surgeries/immobility, no recent long trips. Extensive fam Hx. -CTA with noted PEs in R lobe> left -stayed hemodynamically stable. -hypercoaguable workup (given extensive personal and family Hx) pending on discharge. -treated with heparin on admission, transitioned to coumadin with Lovenox bridging on discharge. -Received 17mg of warfarin over 3 days(10mg, 5mg, 2mg) before discharge. INR of 1.6 the day of discharge before the 2mg dose. -Discharged with warfarin 2mg to be taken daily, and Lovenox 120mg to be given SQ. -PCP's office was contacted before discharge and she will followup with them for INR check on 06/15/15 and PCP f/u 06/18/19. 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 -will discontinue both while hospitalized; advised to discontinue on discharge -close PCP followup for restart of Plavix and aspirin when deemed necessary. Hx of recurrent UTIs -Follows with urology -On daily Macrobid dose of 50mg -currently asymtomatic; UA clean -continue home Macrobid Anxiety -continue home Ativan prn Hx of lung nodules -noted on CT; stable -outpt PCP f/u Total Time Total Time Spent Total Time Spent (In Minutes): see attending attestation Discharge Plan Discharge Items Patient Disposition: Home - Self-Care Reason For Visit: PE Discharge Diagnosis: Pulmonary Embolus Activity: Per Instructions section Non-emergency contact: Primary Care Provider Call non-emergency contact if: your symptoms worsen and you have a fever Follow-up/Referrals: Nicolas Moreno MD [Primary Care Provider] - Diet: Regular Addtl Attending Provider Instructions: Ms. Raygoza, you were admitted because it was noted that you have bilateral pulmonary emboli. We treated you with a heparin drip while hospitalized. However, we are sending you home with two medications to thin your blood in the next 4 days. Please take the wafarin 2mg by mouth for the next 5 days (starting today at about 3pm). Please inject the Lovenox 120mg daily into your abdomen for the next 4 days (starting tomorrow). Please followup with Dr. Moreno's office (your primary care provider) on Tuesday06/15/19 to have your INR level checked. Please also followup with his office on Tuesday06/18/19 for a visit to assess whether any adjustments should be made to your medications. Please STOP taking your home aspirin and Plavix while you are on the warfarin and Lovenox. Your primary care doctor will restart when needed. Should your symptoms worsen, or you suddenly develop shortness of breath, increasing chest pain, palpitations once more, please go to the nearest emergency room. It was truly a pleasure taking care of you during your stay here. Pending Studies at Discharge: Yes Studies:: Hypercoaguable workup- will followup with results. Stand-Alone Forms: [employer], Smoking Cessation Medications and DC Order Prescriptions: New enoxaparin [Lovenox] 120 mg/0.8 mL syringe 120 mg SQ DAILY 4 Days Qty: 3.2 RF: 0 warfarin 2 mg tablet 2 mg PO DAILY Qty: 5 RF: 0 Continued famotidine 20 mg tablet 40 mg PO HS RF: 0 lorazepam 0.5 mg tablet 0.5 mg PO TID PRN (Reason: Anxiety) RF: 0 paroxetine HCl 20 mg tablet 20 mg PO HS RF: 0 nitrofurantoin macrocrystal 50 mg capsule 50 mg PO HS RF: 0 Discontinued clopidogrel 75 mg tablet 75 mg PO HS RF: 0 Discharge Orders: Discharge Order (Routine); Ordered 06/14/19 Ordered By: Debbie Beaulieu/Other Patient Handouts: Enoxaparin Sodium Porcine Solution for injection Admission Data Admit Date/Time: 06/12/19 12:29 Attending Provider: Ibis Summers Admit Provider: Michelle Shukla Primary Care Provider: Nicolas Moreno Other Providers: Michelle Shukla Other Interventions: Discharge Summary Assessment (RN) Last Done: 06/14/19 10:29 DC Date/Time DO NOT enter until pt leaves facility: 06/14/19 11:07 Supervising Physician Co-Signing Physician Notes Resident Physician Supervision Note: I independently interviewed and examined the patient and verified the wooten history and physical, reviewed labs and image studies, discussed the case with the resident Dr. Ochoa and agree with the findings and care plan. Time spent in discharge 35 min Resident Activity Tracking Resident Involvement: Resident Care Provided Care Provided: Adult Hospital Medicine
[2019-06-13] MEDS ORDERED: WARFARIN SOD 5 MG TAB PO ONE ×2 (15:00→16:00)
[2019-06-13] MEDS ORDERED: ENOXAPARIN 150 MG/ML SYR SQ SCH (15:00)
[2019-06-13 15:07] LABS: Partial Thromboplastin Time 72.6 Seconds (21.0-31.0)
[2019-06-13] MEDS ORDERED: WARFARIN SOD 10 MG TAB PO ONE (16:00)
[2019-06-13] MEDS ORDERED: HEPARIN SODIUM/DEXTROSE 25,000 UNITS/500 ML BAG IV SCH (16:15)
[2019-06-13] MEDS: NITROFURANTOIN MACROCRYSTAL 50 MG CAP PO SCH (20:33)
[2019-06-13] MEDS: PARoxetine HCl 20 MG TAB PO SCH (20:33)
[2019-06-13] MEDS: FAMOTIDINE 20 MG TAB PO SCH (20:34)
[2019-06-13] MEDS: LORazepam 0.5 MG TAB PO PRN (22:33)
[2019-06-14 06:34] LABS: INR 1.6 (0.9-1.1); Partial Thromboplastin Ratio 2.8; Prothrombin Time 15.9 Seconds (9.0-12.0)
[2019-06-14 06:42] LABS: Partial Thromboplastin Time 74.9 Seconds (21.0-31.0)
[2019-06-14 06:47] LABS: Creatinine Clr Calc Pharmacy 48.9 ml/min; Est GFR (African American) 61.2; Est GFR (Non-African American) 52.8; Potassium 3.6 mmol/L (3.5-5.1)
[2019-06-14] MEDS ORDERED: ENOXAPARIN 1.5 MG/KG SQ SCH (09:15)
[2019-06-14] MEDS ORDERED: ENOXAPARIN 150 MG/ML SYR SQ SCH (09:30)
[2019-06-14] MEDS ORDERED: WARFARIN SOD 3 MG TAB PO ONE (15:00)
[2019-06-16 03:30] LABS: Anti-Thrombin III Activity 85 % activity (80-120); B2 Glycoprotein IgA <9 SAU (<=20); B2 Glycoprotein IgG <9 SGU (<=20); B2 Glycoprotein IgM <9 SMU (<=20)
== END 2019-06-14 11:07 | disposition home or self-care (01) | DRG 176 ==
LOC: ED 09:08 → 2N 12:29 → SUATTDRO 12:29 → 2N 14:30

== ENCOUNTER 2019-06-16 09:03 | Inpatient (IN) ==
[2019-06-16] MEDS ORDERED: ACETAMINOPHEN 1,000 MG/100 ML VIAL IV STA (09:37)
[2019-06-16] MEDS ORDERED: ONDANSETRON INJ 2 MG/ML 2 ML VIAL IV STA (09:37)
[2019-06-16] MEDS ORDERED: MoRPHine SULFATE 2 MG/ML CARP IV PRN ×2 (09:37→12:53)
[2019-06-16 10:05] LABS: Basophils # (auto) 0.02 K/uL (0-0.2); Basophils % (auto) 0.3 %; Eosinophils # (auto) 0.15 K/uL (0-0.5); Eosinophils % (auto) 2.4 %; Hematocrit (blood only) 32.6 % (37-47); Hemoglobin 10.6 g/dL (12.0-16.0); Immature Granulocytes # (auto) 0.01 K/uL (0.00-0.02); Immature Granulocytes % (auto) 0.2 %; Lymphocytes % (auto) 23.7 %; Mean Corpuscular Hemoglobin 28.3 pg (25-34); Mean Corpuscular Hgb Conc 32.5 g/dL (32-36); Mean Corpuscular Volume 87.2 fL (80-100); Mean Platelet Volume 9.3 fL (7.4-10.4); Monocytes # (auto) 0.59 K/uL (0.11-0.59); Monocytes % (auto) 9.3 %; Neutrophils # (auto) 4.05 K/uL (1.4-6.5); Neutrophils % (auto) 64.1 %; Platelet Count 352 K/uL (130-400); RDW Coefficient of Variation 15.2 % (11.5-14.5); RDW Standard Deviation 48.6 fL (36.4-46.3); Red Blood Count 3.74 M/uL (4.2-5.4); White Blood Count 6.32 K/uL (4.8-10.8)
[2019-06-16 10:13] LABS: Alanine Aminotransferase 15 U/L (12-78); Albumin Level 3.1 gm/dl (3.4-5.0); Aspartate Aminotransferase 14 U/L (15-37); BUN Creatinine Ratio 12.1 (10-20); Blood Urea Nitrogen 14 mg/dl (7-18); Calcium 9.7 mg/dl (8.5-10.1); Carbon Dioxide 24 mmol/L (21-32); Chloride 105 mmol/L (98-107); Creatinine Clr Calc Pharmacy 44.8 ml/min; Est GFR (African American) 54.7; Est GFR (Non-African American) 47.2; Glucose 106 mg/dl (70-99); Potassium 3.8 mmol/L (3.5-5.1); Sodium 139 mmol/L (136-145)
--- NOTE | 2019-06-16 10:13 | Emergency Department Note ---
Entered by Vahid Starks acting as a scribe for Tal Espinoza MD History of Present Illness General Chief complaint: Shortness of Breath/Dyspnea Stated complaint: DIFFICULTY BREATHING,BLOOD CLOTS IN LUNGS Time Seen by Provider: 06/16/19 09:28 Source: patient History of Present Illness Onset (ago): hour(s) (1.5) Location: chest (right-sided) Pain Consistency: + other (episode) Maximum Pain Intensity: 8 Current Pain Intensity: 7 Quality: + other (chest pain) Exacerbated By: + movement and + other (breathing) Associated symptoms: + cough (non-productive and at night); no fever/chills and no rash The patient is a 78 year old female, with past medical history of bilateral pulmonary embolism, who presents to the Emergency Room with complaints of an episode of right sided chest pain that began approximately one and a half hours ago. The patient admits to being discharged from [facility] two days ago with a diagn osis of bilateral pulmonary emboli. The patient states she is still on both Coumadin and Lovenox from the [facility] discharge. The patient reports her present pain is mainly right under her right breast. The patient notes the pain is worsened with breathing and when she gets up and starts moving around. She rates her pain currently as a 7/10. The patient denies experiencing similar pain when she came into the ED prior to being diagnosed with the pulmonary emboli. The patient denies a fever, fall, trauma, or rash to the area. The patient reports of a non-productive cough that she states is more prominent at night. The patient states she has not taken anything for the pain to this point, and she no hemalatha she has a sulfur allergy. The patient states she got her INR checked yesterday morning at her PCP-Dr. Davis office, but the patient cannot recall what exactly her INR level was. Home Medications Home Medications Medication Instructions Recorded Confirmed Type famotidine 40 mg PO HS 06/12/19 06/16/19 History lorazepam 0.5 mg PO TID PRN 06/12/19 06/16/19 History nitrofurantoin macrocrystal 50 mg PO HS 06/12/19 06/16/19 History paroxetine HCl 20 mg PO HS 06/12/19 06/16/19 History enoxaparin [Lovenox] 120 mg SQ DAILY 4 Days #3.2 ml 06/13/19 06/16/19 Rx warfarin 2 mg PO DAILY #5 tab 06/14/19 06/16/19 Rx Allergies Allergy/AdvReac Type Severity Reaction Status Date / Time Sulfa (Sulfonamide Allergy Mild HEADACHE, Verified 06/12/19 11:14 Antibiotics) VERTIGO Past Med/Surg History Medical History Amaurosis fugax of left eye Anxiety Blind left eye Fibula fracture (Acute) Hx of blood clots Hx: UTI (urinary tract infection) Lung nodule Pulmonary emboli Recurrent UTI Family History (Updated 06/16/19 @ 11:49 by Brad Weber MD) Mother Blood clot in vein Father Myocardial infarction Sister Blood clot in vein Aunt Blood clot in vein Social History Preferred Language: Amharic Communication Ability: Effective Plugger Worker Required: No Beliefs That Will Affect Care: None marital status: / Current Living Situation: Alone current occupational status: retired Feels Safe at Home: Yes Smoking Status: Never smoker Second Hand Exposure: No ; Hx Alcohol Use: No Hx Substance Use: No Review of Systems See HPI for pertinent positives & negatives. and A total of 10 systems reviewed and were otherwise negative Physical Exam Vital Signs Vital Signs - 24 hr 06/16/19 09:04 06/16/19 09:05 06/16/19 09:15 Temperature 37.1 C Temperature Source Oral Pulse Rate 100 H 94 H Pulse Rate from SpO2 Sensor Respiratory Rate 18 30 H Respiratory Effort / Characteristics Non-Labored Non-Labored Respiratory Depth Normal Normal Respiratory Pattern Regular Blood Pressure 184/106 H Blood Pressure Mean 132 Pulse Oximetry 97 Oxygen Delivery Method Room Air Sepsis Recent Fever Within 48 Hours No Sepsis New/Unexplained Change in Mental Status No Sepsis Action Taken by Nursing No Action Required 06/16/19 09:20 06/16/19 09:30 06/16/19 09:37 Temperature Temperature Source Pulse Rate 87 85 Pulse Rate from SpO2 Sensor 86 84 Respiratory Rate 29 H 23 Respiratory Effort / Characteristics Respiratory Depth Respiratory Pattern Blood Pressure Blood Pressure Mean Pulse Oximetry 95 96 97 Oxygen Delivery Method Room Air Sepsis Recent Fever Within 48 Hours Sepsis New/Unexplained Change in Mental Status Sepsis Action Taken by Nursing 06/16/19 09:40 06/16/19 09:50 06/16/19 10:00 Temperature Temperature Source Pulse Rate 83 86 78 Pulse Rate from SpO2 Sensor 83 86 76 Respiratory Rate 17 19 17 Respiratory Effort / Characteristics Respiratory Depth Respiratory Pattern Blood Pressure 180/88 H Blood Pressure Mean 111 Pulse Oximetry 95 94 92 Oxygen Delivery Method Sepsis Recent Fever Within 48 Hours Sepsis New/Unexplained Change in Mental Status Sepsis Action Taken by Nursing 06/16/19 10:01 06/16/19 10:10 06/16/19 10:28 Temperature Temperature Source Pulse Rate 76 76 90 Pulse Rate from SpO2 Sensor 76 75 Respiratory Rate 22 16 17 Respiratory Effort / Characteristics Respiratory Depth Respiratory Pattern Blood Pressure 148/72 H Blood Pressure Mean 103 Pulse Oximetry 93 95 Oxygen Delivery Method Sepsis Recent Fever Within 48 Hours Sepsis New/Unexplained Change in Mental Status Sepsis Action Taken by Nursing 06/16/19 10:30 06/16/19 10:40 06/16/19 10:48 Temperature Temperature Source Pulse Rate 83 82 83 Pulse Rate from SpO2 Sensor 82 Respiratory Rate 15 17 18 Respiratory Effort / Characteristics Respiratory Depth Respiratory Pattern Blood Pressure 160/104 H 175/125 H Blood Pressure Mean 116 144 Pulse Oximetry 92 Oxygen Delivery Method Sepsis Recent Fever Within 48 Hours Sepsis New/Unexplained Change in Mental Status Sepsis Action Taken by Nursing 06/16/19 10:50 06/16/19 10:57 06/16/19 11:00 Temperature Temperature Source Pulse Rate 79 79 76 Pulse Rate from SpO2 Sensor 79 79 76 Respiratory Rate 22 22 19 Respiratory Effort / Characteristics Respiratory Depth Respiratory Pattern Blood Pressure 167/70 H Blood Pressure Mean 112 Pulse Oximetry 96 97 96 Oxygen Delivery Method Sepsis Recent Fever Within 48 Hours Sepsis New/Unexplained Change in Mental Status Sepsis Action Taken by Nursing 06/16/19 11:01 06/16/19 11:10 06/16/19 11:20 Temperature Temperature Source Pulse Rate 75 81 79 Pulse Rate from SpO2 Sensor 75 83 78 Respiratory Rate 19 19 16 Respiratory Effort / Characteristics Respiratory Depth Respiratory Pattern Blood Pressure 155/86 H Blood Pressure Mean 132 Pulse Oximetry 96 96 94 Oxygen Delivery Method Sepsis Recent Fever Within 48 Hours Sepsis New/Unexplained Change in Mental Status Sepsis Action Taken by Nursing 06/16/19 11:31 Temperature Temperature Source Pulse Rate 79 Pulse Rate from SpO2 Sensor 71 Respiratory Rate 18 Respiratory Effort / Characteristics Respiratory Depth Respiratory Pattern Blood Pressure 152/76 H Blood Pressure Mean 117 Pulse Oximetry 95 Oxygen Delivery Method Sepsis Recent Fever Within 48 Hours Sepsis New/Unexplained Change in Mental Status Sepsis Action Taken by Nursing GENERAL: Patient is in no acute distress. HEENT: No acute trauma, normocephalic atraumatic, mucous membranes moist, no nasal congestion, no scleral icterus. NECK: No stridor, no adenopathy, no meningismus, trachea is midline. CHEST: Patient has some soreness to palpate the right, lower lateral and anterior chest wall, but no rash. LUNGS: Clear to auscultation bilaterally, no wheeze, no rhonchi, breath sounds equal. HEART: Without murmurs gallops or rubs, regular rate and rhythm. ABDOMEN: Soft, nontender, bowel sounds positive, no hernias, no peritonitis. EXTREMITIES: No cyanosis or edema, full range of motion of all the joints without pain or difficulty, no signs for acute trauma. NEUROLOGIC: Oriented x 3, no acute motor or sensory deficits, no focal weakness. SKIN: No rash, no jaundice, no diaphoresis. Course Course 31: Past medical records reviewed. The patient was evaluated in room A12B. A complete history and physical exam was performed. 1107: I updated the patient and the patient's family on the patient's case. The patient and family are fine with the patient staying in the hospital. 1110: I reviewed the patient's case with Dr. Cote [facility]. Dr. Weber will evaluate the patient for further management. 1115: I discussed the patient's case with Dr. Sarah [facility]. Dr. Weber wants us to put IV heparin on board for the patient. Consultations Consultation #1: I reviewed the patient's case with Dr. Cote [facility]. Dr. Weber will evaluate the patient for further management. Time: 11:10 Consultation #2: I discussed the patient's case with Dr. Sarah [facility]. Dr. Weber wants us to put IV heparin on board for the patient. Time: 11:15 Administered Medications Heparin Sodium/Dextrose (Heparin Sodium/Dextrose) 25,000 units in 500 mls @ 24 mls/hr IV .[id number] [facility]; Protocol Stop: 07/16/19 11:14 Last Admin: 06/16/19 11:45 Dose: 1,200 units/hr, 24 mls/hr Documented by: [id number] Cosigned by: [id number] Sodium Chloride (Nss 1000ml) 1,000 mls @ 75 mls/hr IV .[id number] NATHALIA Stop: 07/16/19 13:14 Last Admin: 06/16/19 14:01 Dose: 75 mls/hr Documented by: [id number] Morphine Sulfate (Morphine Sulfate) 2 mg IV Q4H PRN PRN Reason: Chest Pain Stop: 06/30/19 12:52 Last Admin: 06/16/19 14:04 Dose: 2 mg Documented by: [id number] Discontinued Medications Heparin Sodium/Dextrose () 1 ea N/A ONE ONE; Protocol Stop: 06/16/19 11:16 Last Admin: 06/16/19 11:47 Dose: Not Given Documented by: [id number] Acetaminophen (Ofirmev) 1,000 mg in 100 mls @ 400 mls/hr IV NOW STA Stop: 06/16/19 09:51 Last Infusion: 06/16/19 09:58 Dose: 0 mls/hr Documented by: [id number] Admin: 06/16/19 09:43 Dose: 400 mls/hr Documented by: [id number] Ioversol (Optiray 320 125ml) 120 ml IV ONCE PRN PRN Reason: Interaction Checking Stop: 06/20/19 10:22 Last Admin: 06/16/19 10:26 Dose: 120 ml Documented by: [id number] Morphine Sulfate (Morphine Sulfate) 2 mg IV Q30M PRN PRN Reason: Pain Stop: 06/30/19 09:36 Last Admin: 06/16/19 09:44 Dose: 2 mg Documented by: [id number] Ondansetron HCl (Zofran) 4 mg IV NOW STA Stop: 06/16/19 09:38 Last Admin: 06/16/19 09:44 Dose: 4 mg Documented by: [id number] Medical Decision Making Differential Diagnosis Differential diagnoses include pleurisy, pulmonary infarct, pneumonia, worsening pulmonary emboli, pneumothorax, musculoskeletal pain, shingles, myocardial infarction, amongst others that were considered. Medical Records Attestation: I reviewed the patient's medical records. The patient was discharged from [facility] two days after a diagnosis of pulmonary emboli bilaterally. The patient was discharged with Coumadin and Lovenox. Home Medications Current Medication List: was personally reviewed by me Laboratory Data Attestation: I reviewed the patient's lab results. Result diagrams: 06/16/19 09:20 06/16/19 09:20 Lab Results 06/16/19 06/16/19 06/16/19 Range/Units 09:20 09:20 09:20 WBC 6.32 (4.8-10.8) K/uL RBC 3.74 L (4.2-5.4) M/uL Hgb 10.6 L (12.0-16.0) g/dL Hct 32.6 L (37-47) % MCV 87.2 (80-100) fL MCH 28.3 (25-34) pg MCHC 32.5 (32-36) g/dL RDW Std Deviation 48.6 H (36.4-46.3) fL RDW Coeff of Alice 15.2 H (11.5-14.5) % Plt Count 352 (130-400) K/uL MPV 9.3 (7.4-10.4) fL Immature Gran % (Auto) 0.2 % Neut % (Auto) 64.1 % Lymph % (Auto) 23.7 % Archuleta % (Auto) 9.3 % Eos % (Auto) 2.4 % Baso % (Auto) 0.3 % Immature Gran # (Auto) 0.01 (0.00-0.02) K/uL Neut # (Auto) 4.05 (1.4-6.5) K/uL Lymph # (Auto) 1.50 (1.2-3.4) K/uL Archuleta # (Auto) 0.59 (0.11-0.59) K/uL Eos # (Auto) 0.15 (0-0.5) K/uL Baso # (Auto) 0.02 (0-0.2) K/uL PT 17.4 H (9.0-12.0) Seconds INR 1.8 H (0.9-1.1) APTT 40.7 H (21.0-31.0) Seconds PTT Ratio 1.5 Sodium 139 (136-145) mmol/L Potassium 3.8 (3.5-5.1) mmol/L Chloride 105 (98-107) mmol/L Carbon Dioxide 24 (21-32) mmol/L Anion Gap 10.0 (3-11) BUN 14 (7-18) mg/dl Creatinine 1.13 (0.6-1.2) mg/dl Est Cr Clr Drug Dosing 44.8 ml/min Est GFR ( Amer) 54.7 Est GFR (Non-Af Amer) 47.2 BUN/Creatinine Ratio 12.1 (10-20) Glucose 106 H (70-99) mg/dl Calcium 9.7 (8.5-10.1) mg/dl Total Bilirubin 0.5 (0.2-1) mg/dl AST 14 L (15-37) U/L ALT 15 (12-78) U/L Alkaline Phosphatase 67 (45-117) U/L Troponin I < 0.015 (0-0.045) ng/ml Total Protein 7.5 (6.4-8.2) gm/dl Albumin 3.1 L (3.4-5.0) gm/dl Globulin 4.4 H (2.5-4.0) gm/dl Albumin/Globulin Ratio 0.7 L (0.9-2) Imaging Data Radiologist's Impression: Radiology results as stated below per my review and the radiologist's interpretation: CT ANGIOGRAM OF THE CHEST CLINICAL HISTORY: Pulmonary embolus. COMPARISON STUDY: Chest CT dated 06/12/2019. TECHNIQUE: Following the IV administration of 120 cc of Optiray 320, CT angio gram of the chest was performed from the upper abdomen to the thoracic inlet utilizing the pulmonary embolus protocol. Images are reviewed in the axial, sagittal, and coronal planes. 3-D MIPS images are created and assessed. IV contrast was administered without complication. A dose lowering technique was utilized adhering to the principles of ALARA. CT DOSE: 444.42 mGy.cm FINDINGS: Thyroid: Imaged portions of the thyroid gland are normal in size and attenuation. Thoracic aorta: The thoracic aorta is normal in caliber and demonstrates standard 3-vessel arch anatomy. No dissection is seen. Pulmonary vasculature: The pulmonary trunk is normal in caliber. There is thrombus within the right middle and right lower lobar pulmonary arteries extending into segmental and subsegmental branches. Segmental and subsegmental pulmonary emboli are also seen within branches of the right upper and left lower lobe pulmonary arteries. There is slightly more thrombus within the left lower lobe pulmonary arteries as compared to 06/12/2019. Heart: The heart is mildly enlarged and without pericardial effusion. The mitral annulus is densely calcified. Lungs and pleural spaces: There is a small right pleural effusion with right basilar consolidation foci of scarring/atelectasis are present at both lung bases. A fat-containing Bochdalek hernia is noted on the left. A 4 mm pleural- based nodule the right lung base is unchanged as seen on image #84. Additional 2 to 3 mm pulmonary nodules in the right lower lobe seen on images #103 and #90 are also unchanged. The trachea and central airways are clear. Mediastinum: There is no mediastinal lymphadenopathy. Armida: Clear. Axillae: There is no axillary lymphadenopathy. Upper abdomen: There is a small hiatal hernia. A 1.2 cm left adrenal adenoma is again noted. Skeletal structures: The skeletal structures are osteopenic. Mild degenerative change is noted throughout the thoracic spine. No lytic or blastic bony lesions are seen. IMPRESSION: 1. Bilateral pulmonary emboli again noted. There has been a slight increase in left lower lobe pulmonary embolus from 06/12/2019. 2. There is a small right pleural effusion with right basilar consolidation. This could represent a pulmonary infarct and/or an infectious/inflammatory pneumonitis. Clinical correlation will be required. 3. Cardiomegaly. 4. Additional findings as above. Electronically signed by: Tal Tejeda M.D. 06/16/2019 10:42 AM ECG Data Attestation: I personally reviewed and interpreted this ECG as follows: Indication: + chest pain Rate (beats per minute): 94 Rhythm: + sinus rhythm ECG ST segments: no ST elevation ECG Findings: + PACs and + Other (QTC 477) Blood Pressure Blood Pressure Findings: Elevated blood pressure Blood Pressure Disposition: further management by hospitalist [facility] Narrative There is no leukocytosis. The patient is somewhat anemic with a hemoglobin of 10.6, this appears baseline though lately. There is a normal platelet count. I NR is elevated at 1.8, this is consistent with her Coumadin use although, she is under anticoagulated. There was no significant electrolyte abnormality or kidney failure. No concerning liver enzyme elevation. EKG shows a sinus rhythm, no acute ischemia. Cardiac enzyme testing x1 is not consistent with acute cardiac injury. Chest CT shows worsening pulmonary emboli on the left. She has a pleural effusion on the right with a potential pulmonary infarct now on the right. The patient received IV Tylenol and IV morphine, she was given IV Zofran. Patient was eventually placed on IV heparin for additional anticoagulation. The patient presents with right chest pain and worsening symptoms from her pulmonary emboli. Things have progressed based on the CT. I do think a hospital stay is warranted. I spoke to the patient and case management. The on-call hospitalist was consulted. Impression & Plan Pulmonary infarct, Bilateral pulmonary embolism, Right-sided chest pain, Failure of outpatient treatment Discharge Plan Visit Data *Final* Discharge Date/Time: 06/16/19 12:14 Chief Complaint: Shortness of Breath/Dyspnea Stated Complaint: DIFFICULTY BREATHING,BLOOD CLOTS IN LUNGS ED Provider: Tal Espinoza Discharge Problem: Pulmonary infarct, Bilateral pulmonary embolism, Right-sided chest pain, Failure of outpatient treatment Patient Disposition: Admitted As Inpatient Discharge Instructions Interventions: ED Discharge Assessment Last Done: 06/16/19 12:14 The scribe's documentation has been prepared under my direction and personally reviewed by me in its entirety. I confirm that the note above accurately reflects all work, treatment, procedures, and medical decision making performed by me.
[2019-06-16 10:16] LABS: INR 1.8 (0.9-1.1); Partial Thromboplastin Ratio 1.5; Partial Thromboplastin Time 40.7 Seconds (21.0-31.0); Prothrombin Time 17.4 Seconds (9.0-12.0)
[2019-06-16 10:17] LABS: Albumin Globulin Ratio 0.7 (0.9-2); Alkaline Phosphatase 67 U/L (45-117); Bilirubin,Total 0.5 mg/dl (0.2-1); Globulin 4.4 gm/dl (2.5-4.0); Total Protein 7.5 gm/dl (6.4-8.2); Troponin I < 0.015 ng/ml (0-0.045)
[2019-06-16] MEDS ORDERED: OPTIRAY 320 125ml IV PRN (10:23)
--- NOTE | 2019-06-16 10:44 | CT Scan Report ---
CT ANGIOGRAM OF THE CHEST CLINICAL HISTORY: Pulmonary embolus. COMPARISON STUDY: Chest CT dated 06/12/2019. TECHNIQUE: Following the IV administration of 120 cc of Optiray 320, CT angiogram of the chest was pe rformed from the upper abdomen to the thoracic inlet utilizing the pulmonary embolus protocol. Images are reviewed in the axial, sagittal, and coronal planes. 3-D MIPS images are created and assessed. I V contrast was administered without complication. A dose lowering technique was utilized adhering to the principles of ALARA. CT DOSE: 444.42 mGy.cm FINDINGS: Thyroid: Imaged portions of the thyroid gland are normal in size and attenuation. Thoracic aorta: The thoracic aorta is normal in caliber and demonstrates standard 3-vessel arch anato my. No dissection is seen. Pulmonary vasculature: The pulmonary trunk is normal in caliber. There is thrombus within the right m iddle and right lower lobar pulmonary arteries extending into segmental and subsegmental branches. Se gmental and subsegmental pulmonary emboli are also seen within branches of the right upper and left l ower lobe pulmonary arteries. There is slightly more thrombus within the left lower lobe pulmonary ar teries as compared to 06/12/2019. Heart: The heart is mildly enlarged and without pericardial effusion. The mitral annulus is densely c alcified. Lungs and pleural spaces: There is a small right pleural effusion with right basilar consolidation fo ci of scarring/atelectasis are present at both lung bases. A fat-containing Bochdalek hernia is noted on the left. A 4 mm pleural-based nodule the right lung base is unchanged as seen on image #84. Ford tional 2 to 3 mm pulmonary nodules in the right lower lobe seen on images #103 and #90 are also uncha nged. The trachea and central airways are clear. Mediastinum: There is no mediastinal lymphadenopathy. Armida: Clear. Axillae: There is no axillary lymphadenopathy. Upper abdomen: There is a small hiatal hernia. A 1.2 cm left adrenal adenoma is again noted. Skeletal structures: The skeletal structures are osteopenic. Mild degenerative change is noted throug hout the thoracic spine. No lytic or blastic bony lesions are seen. IMPRESSION: 1. Bilateral pulmonary emboli again noted. There has been a slight increase in left lower lobe pulmon yary embolus from 06/12/2019. 2. There is a small right pleural effusion with right basilar consolidation. This could represent a p ulmonary infarct and/or an infectious/inflammatory pneumonitis. Clinical correlation will be required . 3. Cardiomegaly. 4. Additional findings as above. Electronically signed by: Tal Tejeda M.D. 06/16/2019 10:42 AM
[2019-06-16] MEDS ORDERED: Heparin IV Standard *NO* Bolus ONE (11:15)
[2019-06-16] MEDS: HEPARIN SODIUM/DEXTROSE 25,000 UNITS/500 ML BAG IV SCH (11:45)
--- NOTE | 2019-06-16 11:55 | History & Physical Report ---
Date of Service June 16, 2019 Assessment & Plan (1) Bilateral pulmonary embolism: Will start on IV heparin drip per protocol. Consult microfilming document preparer. Consult retail chain store area supervisor. (2) Pulmonary infarct: Add morphine for pain control. Tramadol as needed basis (3) Right-sided chest pain: (4) Pulmonary embolism with infarction: (5) Pleuritic chest pain: (6) Anxiety: Continue with home medications. (7) Amaurosis fugax of left eye: (8) Blind left eye: History of Present Illness Chief Complaint: Right-sided pleuritic chest pain Primary Care Provider: Nicolas Moreno MD The patient is a 78 year old female, with recent history of bilateral pulmonary embolism, who presents to the Emergency Room with complaints of an episode of right sided chest pain that began approximately one and a half hours ago. The patient admits to being discharged from [facility] two days ago with a diagnosis of bilateral pulmonary emboli. The patient states she is still on both Coumadin and Lovenox from the [facility] discharge. The patient reports her present pain is mainly right under her right breast. The patient notes the pain is worsened with breathing and when she gets up and starts moving around. She rates her pain currently as a 7/10. The patient denies experiencing similar pain when she came into the ED prior to being diagnosed with the pulmonary emboli. The patient denies a fever, fall, trauma, or rash to the area. The patient reports of a non- productive cough that she states is more prominent at night. The patient states she has not taken anything for the pain to this point, and she notes she has a sulfur allergy. The patient states she got her INR checked yesterday morning at her PCP-Dr. Davis office, but the patient cannot recall what exactly her INR level was. The further work-up done in the ER shows that patient has right-sided pulmonary infarction and increasing pulmonary embolism on the left side. She was started on IV heparin drip and will be admitted for further evaluation and management. No syncope. No palpitation. No dyspnea. She complains of arthritic pains in the legs. Allergies Allergy/AdvReac Type Severity Reaction Status Date / Time Sulfa (Sulfonamide Allergy Mild HEADACHE, Verified 06/12/19 11:14 Antibiotics) VERTIGO Home Medications Home Medications Medication Instructions Recorded Confirmed Type famotidine 40 mg PO HS 06/12/19 06/16/19 History lorazepam 0.5 mg PO TID PRN 06/12/19 06/16/19 History nitrofurantoin macrocrystal 50 mg PO HS 06/12/19 06/16/19 History paroxetine HCl 20 mg PO HS 06/12/19 06/16/19 History enoxaparin [Lovenox] 120 mg SQ DAILY 4 Days #3.2 ml 06/13/19 06/16/19 Rx warfarin 2 mg PO DAILY #5 tab 06/14/19 06/16/19 Rx Past Med/Surg History Medical History Amaurosis fugax of left eye Anxiety Blind left eye Fibula fracture (Acute) Hx of blood clots Hx: UTI (urinary tract infection) Lung nodule Pulmonary emboli Recurrent UTI Family History (Updated 06/16/19 @ 11:48 by Brad Weber MD) Mother Blood clot in vein Father Myocardial infarction Sister Blood clot in vein Aunt Blood clot in vein Social History Preferred Language: Welsh Communication Ability: Effective Working Foreman Required: No Beliefs That Will Affect Care: None marital status: / Current Living Situation: Alone current occupational status: retired Feels Safe at Home: Yes Smoking Status: Never smoker Hx Alcohol Use: No Hx Substance Use: No Review of Systems Review of Systems: All systems reviewed & are unremarkable except as noted in HPI & below Physical Exam Physical Exam: GENERAL : No acute distress EYES: No icterus, gaze conjugate She is blind from left eye. NOSE: No evidence of epistaxis MOUTH: No lesions or candidiasis, mucosa moist NECK: Supple LUNGS: CTA B/L, no wheezes, rales or rhonchi HEART: Regular, rate controlled ABDOMEN: Soft, NT, ND, BS Present EXTREMITIES: No LE edema, pedal pulses intact NEURO: A&OX3 Results & Data Vital Signs (Past 12 Hours) Vital Signs Temp Pulse Resp BP Pulse Ox 06/16/19 11:20 79 16 94 06/16/19 11:10 81 19 96 06/16/19 11:01 75 19 155/86 H 96 06/16/19 11:00 76 19 96 06/16/19 10:57 79 22 167/70 H 97 06/16/19 10:50 79 22 96 06/16/19 10:48 83 18 175/125 H 06/16/19 10:40 82 17 06/16/19 10:30 83 15 160/104 H 92 06/16/19 10:28 90 17 06/16/19 10:10 76 16 95 06/16/19 10:01 76 22 148/72 H 93 06/16/19 10:00 78 17 92 06/16/19 09:50 86 19 180/88 H 94 06/16/19 09:40 83 17 95 06/16/19 09:37 97 06/16/19 09:30 85 23 96 06/16/19 09:20 87 29 H 95 06/16/19 09:15 94 H 30 H 06/16/19 09:05 98.8 F 100 H 18 184/106 H 97 Laboratory Results 06/16/19 09:20 06/16/19 09:[address] ANGIOGRAM OF THE CHEST CLINICAL HISTORY: Pulmonary embolus. COMPARISON STUDY: Chest CT dated 06/12/2019. TECHNIQUE: Following the IV administration of 120 cc of Optiray 320, CT angiogram of the chest was performed from the upper abdomen to the thoracic inlet utilizing the pulmonary embolus protocol. Images are reviewed in the axial, sagittal, and coronal planes. 3-D MIPS images are created and assessed. IV contrast was administered without complication. A dose lowering technique was utilized adhering to the principles of ALARA. CT DOSE: 444.42 mGy.cm FINDINGS: Thyroid: Imaged portions of the thyroid gland are normal in size and attenuation. Thoracic aorta: The thoracic aorta is normal in caliber and demonstrates standard 3-vessel arch anatomy. No dissection is seen. Pulmonary vasculature: The pulmonary trunk is normal in caliber. There is thrombus within the right middle and right lower lobar pulmonary arteries extending into segmental and subsegmental branches. Segmental and subsegmental pulmonary emboli are also seen within branches of the right upper and left lower lobe pulmonary arteries. There is slightly more thrombus within the left lower lobe pulmonary arteries as compared to 06/12/2019. Heart: The heart is mildly enlarged and without pericardial effusion. The mitral annulus is densely calcified. Lungs and pleural spaces: There is a small right pleural effusion with right basilar consolidation foci of scarring/atelectasis are present at both lung bases. A fat-containing Bochdalek hernia is noted on the left. A 4 mm pleural- based nodule the right lung base is unchanged as seen on image #84. Additional 2 to 3 mm pulmonary nodules in the right lower lobe seen on images #103 and #90 are also unchanged. The trachea and central airways are clear. Mediastinum: There is no mediastinal lymphadenopathy. Armida: Clear. Axillae: There is no axillary lymphadenopathy. Upper abdomen: There is a small hiatal hernia. A 1.2 cm left adrenal adenoma is again noted. Skeletal structures: The skeletal structures are osteopenic. Mild degenerative change is noted throughout the thoracic spine. No lytic or blastic bony lesions are seen. IMPRESSION: 1. Bilateral pulmonary emboli again noted. There has been a slight increase in left lower lobe pulmonary embolus from 06/12/2019. 2. There is a small right pleural effusion with right basilar consolidation. This could represent a pulmonary infarct and/or an infectious/inflammatory pneumonitis. Clinical correlation will be required. 3. Cardiomegaly. 4. Additional findings as above. Code Status & VTE Plan VTE Prophylaxis Plan VTE Prophylaxis will be ordered: Yes PG Care Time/CCT Total # of Minutes Spent Total Time Spent with Patient: Total time spent is greater than 50% in coordination of care (as documented) at patient's floor/unit and/or counseling patient:
[2019-06-16] MEDS ORDERED: ACETAMINOPHEN 325 MG TAB PO PRN (12:53)
[2019-06-16] MEDS: SODIUM CHLORIDE 0.9% 1000ML 1,000 ML IV SCH (14:01)
[2019-06-16] MEDS ORDERED: HydrALAZINE HCL 20 MG/ML VIAL IV PRN (14:16)
--- NOTE | 2019-06-16 17:18 | Pulmonary Consultation ---
Date of Consultation June 16, 2019 Assessment & Plan (1) Pulmonary infarct: (2) Bilateral pulmonary embolism: I had a chance to review the serial CTAs of the chest done several days apart and reviewed patient's history. I do not think there is any question the patient's initial presentation was of multiple pulmonary emboli with pulmonary infarction and that the second admission was an extension of those pleuritic symptoms that never truly dissipated. I do not think the patient demonstrated recurrent pulmonary emboli as it is difficult to quantitate as suggested on the second CTA the left-sided interlobar pulmonary arterial emboli. I think patient can be made more comfortable with addition of either IV Solu-Medrol or Decadron in addition to narcotic analgesia. A hypercoagulable work-up was started the first admission and I suspect given patient's history she will need to be on anticoagulant therapy indefinitely even the unprovoked nature of this most recent episode and recurrent nature as well as family history. Do not think there is an indication for a vena cava filter at this juncture. 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 (3) Right-sided chest pain: (4) Lung nodule: (5) Amaurosis fugax of left eye: History of Present Illness Attending Physician: Brad Weber MD 78-year-old white female with recent history of bilateral pulmonary emboli and discharge on 06/13/2019 was readmitted through the emergency room on 06/16/2019 with worsening right-sided pleuritic chest discomfort described as sub-mammary in nature with worsening pleuritic type discomfort in that region. Patient was discharged on Lovenox and Coumadin and seen by Dr. Moreno in the office who administered 1 Lovenox injection and her daughter a nurse at [facility] who administered the other injections. Her pain has somewhat dissipated as she was given narcotic. She states the pain is worse than she presented with Tuesday to the ER the first time which was mostly right sided posterior subscapular pain. No hemoptysis has been noted. Not been running a fever. She has had a nonproductive cough. INR was checked yesterday at her padding gluer's office. She denies syncope or presyncopal symptoms. Her right lower extremity specifically in the upper calf and posterior knee area which have been giving her pain is no longer painful. 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 Noel/Nu retinologist. Lost the vision in that eye. She has been started back on a weight-based heparin drip. The right-sided posterior subscapular pain that border to the ER and admission Tuesday evening have been present with worsening since the Tuesday prior to admission. She relates that 2 days post for 1 of her sons she was diagnosed with an acute DVT and following the retinal artery occlusion had been on Plavix and aspirin for 11 years which was discontinued. Is a strong family history of DVT and pulmonary emboli on her mother side. The original CTA on 06/12/2019 was reviewed and it showed extensive lateral pulmonary emboli involving the lobar, segmental and subsegmental branches throughout the right lung and segmental and subsegmental branches of the left lower lobe. Trace right pleural effusion with right basilar opacity suggesting atelectasis or developing pulmonary infarction. Cardiomegaly noted. 4 mm solid right lower lobe nodule. The stopper at that time showed no evidence for acute DVT involving the right or left lower extremity but nonocclusive linear echogenic focus within the right peroneal veins consistent with chronic thrombus noted. Repeat CTA on 06/16/2019 was performed once again demonstrated thrombus within the right middle and right lower lobe pulmonary arteries extending into the segmental and subsegmental branches. There continue to be segmental and subsegmental pulmonary emboli within the branches of the right upper and left lower lobe pulmonary arterial tree. Perhaps there is slightly more thrombus within the left lower lobe pulmonary arteries compared to 06/12/2019 but not on the right side per there is now right basilar consolidation with scarring and atelectasis at both bases right greater than left. Patient received a total of 17 mg of Coumadin over 3 days prior to discharge with an INR of 1.6 the day of discharge before the 2 mg dose. Patient was discharged on warfarin 2 mg daily and Lovenox 120 mg subcu daily. Allergies Allergy/AdvReac Type Severity Reaction Status Date / Time Sulfa (Sulfonamide Allergy Mild HEADACHE, Verified 06/12/19 11:14 Antibiotics) VERTIGO Home Medications Home Medications Medication Instructions Recorded Confirmed Type famotidine 40 mg PO HS 06/12/19 06/16/19 History lorazepam 0.5 mg PO TID PRN 06/12/19 06/16/19 History nitrofurantoin macrocrystal 50 mg PO HS 06/12/19 06/16/19 History paroxetine HCl 20 mg PO HS 06/12/19 06/16/19 History enoxaparin [Lovenox] 120 mg SQ DAILY 4 Days #3.2 ml 06/13/19 06/16/19 Rx warfarin 2 mg PO DAILY #5 tab 06/14/19 06/16/19 Rx Patient History Medical History Amaurosis fugax of left eye Anxiety Blind left eye Fibula fracture (Acute) Hx of blood clots Hx: UTI (urinary tract infection) Lung nodule Pulmonary emboli Recurrent UTI Family History (Updated 06/16/19 @ 11:49 by Brad Weber MD) Mother Blood clot in vein Father Myocardial infarction Sister Blood clot in vein Aunt Blood clot in vein Social History Preferred Language: Mohawk Communication Ability: Effective Armored Machine Operator Required: No Beliefs That Will Affect Care: None marital status: / Current Living Situation: Alone current occupational status: retired Feels Safe at Home: Yes Smoking Status: Never smoker Second Hand Exposure: No ; Hx Alcohol Use: No Hx Substance Use: No Review of Systems Constitutional: no problem reported Eyes: no problem reported Ear, Nose, Mouth, Throat: no problem reported Respiratory: no problem reported Cardiovascular: no problem reported Gastrointestinal: no problem reported Genitourinary: no problem reported Musculoskeletal: no problem reported Integumentary: no problem reported Neurologic: no problem reported Psychiatric: no problem reported Endocrine: no problem reported Hematologic / Lymphatic: no problem reported Allergy / Immunological: no problem reported Physical Exam Constitutional: well developed and well nourished; no acute distress Eyes: PERRL, conjunctivae normal, anicteric sclerae ENMT: external ear and nose normal, oropharynx normal Neck: trachea midline, no thyromegaly Respiratory: normal respiratory effort Auscultation: + diminished lung sounds (Diminished breath sounds right base with pleural rub and crackles) and + wheezes (Scattered wheeze right base) Cardiovascular: RRR, no murmur, no edema Palpation: normal PMI; no thrill Gastrointestinal (Abdomen): normal bowel sounds, soft, nontender, no hepatosplenomegaly Musculoskeletal: no cyanosis or clubbing, extremities motor strength 5/5 Gait: normal gait Skin: no rashes, warm and dry Neurologic: PERRL, EOMI, accommodation nl, no face palsy, no dysarthria Psychiatric: A+Ox3, euthymic affect Lymphatic: no cervical or axillary lymphadenopathy Results & Data Vital Signs (Past 12 Hours) Vital Signs Temp Pulse Pulse Resp BP BP Pulse Ox 06/16/19 15:42 36.7 C 71 18 134/76 93 06/16/19 15:31 76 06/16/19 12:30 36.8 C 79 18 150/86 H 92 06/16/19 12:10 73 16 179/87 H 97 06/16/19 11:31 79 18 152/76 H 95 06/16/19 11:20 79 16 94 06/16/19 11:10 81 19 96 06/16/19 11:01 75 19 155/86 H 96 06/16/19 11:00 76 19 96 06/16/19 10:57 79 22 167/70 H 97 06/16/19 10:50 79 22 96 06/16/19 10:48 83 18 175/125 H 06/16/19 10:40 82 17 06/16/19 10:30 83 15 160/104 H 92 06/16/19 10:28 90 17 06/16/19 10:10 76 16 95 06/16/19 10:01 76 22 148/72 H 93 06/16/19 10:00 78 17 92 06/16/19 09:50 86 19 180/88 H 94 06/16/19 09:40 83 17 95 06/16/19 09:37 97 06/16/19 09:30 85 23 96 06/16/19 09:20 87 29 H 95 06/16/19 09:15 94 H 30 H 06/16/19 09:05 37.1 C 100 H 18 184/106 H 97 PG Care Time/CCT Total # of Minutes Spent Total Time Spent with Patient: Total time spent is greater than 50% in coordination of care (as documented) at patient's floor/unit and/or counseling patient:
[2019-06-16 18:18] LABS: Partial Thromboplastin Ratio 2.6
[2019-06-16 18:20] LABS: Partial Thromboplastin Time 71.3 Seconds (21.0-31.0)
[2019-06-16] MEDS: FAMOTIDINE 20 MG TAB PO SCH (20:15)
[2019-06-16] MEDS: PARoxetine HCl 20 MG TAB PO SCH (20:15)
[2019-06-16] MEDS: NITROFURANTOIN MACROCRYSTAL 50 MG CAP PO SCH (20:16)
[2019-06-16] MEDS: TRAMADOL HCL 50 MG TABLET PO PRN (20:23)
--- NOTE | 2019-06-16 21:32 | Ultrasound Report ---
ULTRASOUND BILATERAL LOWER EXTREMITY VENOUS CLINICAL HISTORY: Pulmonary embolus. Left leg pain. COMPARISON STUDY: Bilateral lower extremity venous ultrasound dated 06/12/2019. TECHNIQUE: Real-time, grayscale, and color Doppler sonography of the deep veins of the right and left lower extremity was performed from the inguinal crease to the calf. Compression and augmentation wer e utilized. FINDINGS: There is no sonographic evidence of acute deep venous thrombosis identified in the right or left lower extremity. The common femoral, superficial femoral, and popliteal veins are patent and no rmally compressible bilaterally. The greater saphenous vein and the profunda femoris vein at the junc tion with the common femoral vein are clear in both legs. Stranding within the right peroneal vein i s unchanged and likely represents chronic thrombus. The visualized calf veins are otherwise patent bi laterally. IMPRESSION: 1. There is no sonographic evidence of acute deep venous thrombosis identified in the right or left l ower extremity. 2. Trace chronic thrombus within the right peroneal vein is again noted. There has been no significan t change from study performed 4 days previously. Electronically signed by: Tal Tejeda M.D. 06/16/2019 9:31 PM
[2019-06-16] MEDS: LORazepam 0.5 MG TAB PO PRN (23:29)
[2019-06-17 00:49] LABS: Partial Thromboplastin Ratio 3.3
[2019-06-17 00:58] LABS: Partial Thromboplastin Time 89.4 Seconds (21.0-31.0)
[2019-06-17] MEDS: HEPARIN SODIUM/DEXTROSE 25,000 UNITS/500 ML BAG IV SCH ×2 (01:35→10:59)
[2019-06-17] MEDS: SODIUM CHLORIDE 0.9% 1000ML 1,000 ML IV SCH (03:45)
[2019-06-17] MEDS: TRAMADOL HCL 50 MG TABLET PO PRN ×2 (04:52→22:55)
[2019-06-17 07:37] LABS: Hematocrit (blood only) 30.2 % (37-47); Hemoglobin 9.6 g/dL (12.0-16.0); Mean Corpuscular Hemoglobin 28.1 pg (25-34); Mean Corpuscular Hgb Conc 31.8 g/dL (32-36); Mean Corpuscular Volume 88.3 fL (80-100); Platelet Count 290 K/uL (130-400); RDW Coefficient of Variation 15.2 % (11.5-14.5); RDW Standard Deviation 49.3 fL (36.4-46.3); Red Blood Count 3.42 M/uL (4.2-5.4)
[2019-06-17 07:56] LABS: Partial Thromboplastin Ratio 2.4
[2019-06-17 07:59] LABS: Partial Thromboplastin Time 66.1 Seconds (21.0-31.0)
[2019-06-17 08:12] LABS: BUN Creatinine Ratio 12.7 (10-20); Calcium 8.9 mg/dl (8.5-10.1); Creatinine Clr Calc Pharmacy 50.6 ml/min; Est GFR (African American) 63.4; Est GFR (Non-African American) 54.7; Potassium 3.9 mmol/L (3.5-5.1)
--- NOTE | 2019-06-17 10:20 | Consultation Report ---
DATE OF CONSULTATION: 06/17/2019 REASON FOR CONSULTATION: Possible hypercoagulable state and chronic anemia. HISTORY OF PRESENT ILLNESS: Martha Raygoza is a very pleasant 78-year-old female patient who was readmitted to [facility] with right-sided pleuritic based pain. She was recently diagnosed (about a week ago), with new bilateral pulmonary emboli and right-sided associated chest discomfort. She was originally anticoagulated with Lovenox and Coumadin. She was actually seen by her primary care physician on Tuesday at which time she was feeling reasonably well. She represented to the Emergency Room complaining of right-sided submammary chest pain that was persistent. She could identify no aggravating or alleviating factors. The patient has a significant thrombotic history including prior right-sided DVT several years ago as well as a suspected retinal veins/artery thrombosis. There is also a significant family history of thrombophilia. Martha herself has never been formally worked up and should be considered at least for antibody screening specifically anticardiolipin/antiphospholipid and lupus anticoagulant. The patient apparently had received approximately 17 mg in total dose Coumadin 3 days prior to discharge with an INR of 1.6. She was discharged with overlapping therapy. Radiographic studies done on admission again reveal the same pulmonary emboli with suggestion of possible propagation. Pulmonary service is presently on consult. She is currently receiving unfractionated heparin with plans to proceed with overlapping Coumadin. Martha also has a very mild normocytic normochromic anemia which has never been worked up formerly. I suspect either chronic disease or perhaps renal insufficiency. She does not seem to be symptomatic in this regard. Primary service is requesting opinion regarding anticoagulation moving forward. PAST MEDICAL HISTORY: Significant for recent pulmonary emboli, amaurosis fugax of the left eye, anxiety, status post fibular fracture, prior DVT, lung nodule, recurrent UTI. CURRENT MEDICATIONS: Include famotidine 40 mg p.o. at bedtime, lorazepam 0.5 mg p.o. t.i.d. p.r.n., nitrofurantoin 50 mg p.o. daily, paroxetine 20 mg p.o. daily, Lovenox 120 mg subQ daily and overlapping warfarin. ALLERGIES: SULFA. FAMILY HISTORY: Again, significant for multiple family members including her mother, sister, and aunt, all have had venous thromboembolic disease. Her father suffered from myocardial infarction. SOCIAL HISTORY: The patient is . She is a nonsmoker, nondrinker, non-illicit drug user. REVIEW OF SYSTEMS: For the most part, all systems negative with the exception of the right-sided pleuritic chest wall pain. PHYSICAL EXAMINATION: GENERAL: Very pleasant 78-year-old female patient, awake, alert and appropriate, in no acute distress. VITAL SIGNS: Temperature 36.7, pulse 76, respiratory rate 22, blood pressure 152/94. SKIN: Warm, dry, noncyanotic without petechia, rash or ecchymosis. HEENT: Head is atraumatic, normocephalic. Eyes: PERRLA, EOMI. Sclerae nonicteric. No conjunctival injection. Nares are patent without rhinorrhea or discharge. Throat is clear. Tongue is midline. Mucous membranes are moist. NECK: Supple without JVD or thyromegaly. LYMPH: No cervical, supraclavicular or axillary palpable nodes. HEART: Regular rate and rhythm. No clicks, rubs, murmurs or gallops. LUNGS: Clear to auscultation bilaterally. ABDOMEN: Soft, nontender, nondistended, without palpable hepatosplenomegaly. EXTREMITIES: No clubbing, cyanosis or edema. She has a few scattered varicosities. Pulses and strength are equal in all 4 quadrants. No peripheral edema noted. NEUROLOGICALLY: She is awake, alert and oriented x3. Cranial nerves II-XII are intact. LABORATORY DATA: WBC count 5400, hemoglobin 9.6, platelet count 290,000. PT 17.4 seconds, INR 1.8, PTT 66.1. Chemistries are otherwise unremarkable. Albumin slightly decreased at 3.1. RADIOGRAPHIC DATA: CTA of the chest, bilateral pulmonary emboli again noted with suggestion of slight increase in left lower lobe embolus as compared to 05/2019. IMPRESSION: 1. Bilateral pulmonary emboli. 2. History of deep venous thrombosis (right lower extremity). 3. History of retinal vein/arterial thrombosis. 4. History of anxiety. PLAN: Martha is a very pleasant 78-year-old female with a very interesting past medical history as well as family history. This lady describes multiple thrombotic events in the past. Along with family history, in my opinion, this lady should have been on permanent anticoagulation starting a long time ago. She has never been formally worked up and thus would like to evaluate her at least for acquired antibodies, lupus anticoagulant, anticardiolipin and antiphospholipid panel prior to discharge. I have recommended that she remain on standard anticoagulation, unfractionated heparin followed by transition to Coumadin. The oral direct thrombin inhibitors are not well studied in the setting of acquired thrombophilias and thus should be avoided. Lastly, I took note of the patient's hemoglobin. She denies any active gastrointestinal or genitourinary bleeding. Would appreciate a formal anemia panel including reticulocyte count, B12, folate, serum iron, TIBC and ferritin along with SPEP with immunofixation be sign off before she is discharged as well. I would like to see Martha in the office 2-4 weeks post-discharge. I am assuming Dr. Moreno would manage her Coumadin. However, should he desire a consult for Dr. Clemens would be reasonable to continue Coumadin. I have nothing further to add at this point. I agree with Dr. Madden I could not appreciate radiographic progression and thus would not consider this as anticoagulant failure necessarily. GEOVANI
[2019-06-17 13:45] LABS: Partial Thromboplastin Ratio 2.2; Partial Thromboplastin Time 58.5 Seconds (21.0-31.0)
[2019-06-17 13:55] LABS: INR 1.7 (0.9-1.1); Prothrombin Time 16.8 Seconds (9.0-12.0)
--- NOTE | 2019-06-17 13:57 | Pulmonology Progress Note ---
Date of Service June 17, 2019 78-year-old white female with past medical history consistent with multiple thrombotic events and a strong family history is currently being evaluated for acquired antibodies, lupus anticoagulant, anticardiolipin and antiphospholipid antibodies and should be left on Coumadin indefinitely unless there is an absolute contraindication. Appreciate hematology evaluation and work-up. Patient wishes to go to the Coumadin clinic and will place on a short course of prednisone perhaps an 8-day taper to alleviate some of the right sided pleuritic symptoms. She reports insomnia when on steroid therapy in the past . Prescribed Ambien concomitantly. Assessment & Plan (1) Pulmonary infarct: Will place patient on a short course of prednisone along with a sleep med as needed. Would consider discharge when INR approaches close to 3 with follow- up in the Coumadin clinic as an outpatient. (2) Bilateral pulmonary embolism: (3) Right-sided chest pain: (4) Lung nodule: (5) Amaurosis fugax of left eye: Physical Exam Constitutional: well developed and well nourished; no acute distress Eyes: PERRL, conjunctivae normal, anicteric sclerae ENMT: external ear and nose normal, oropharynx normal Neck: trachea midline, no thyromegaly Respiratory: normal respiratory effort Auscultation: + diminished lung sounds (Decreased breath sounds right base) and + crackles (Right base) Cardiovascular: RRR, no murmur, no edema Palpation: normal PMI; no thrill Gastrointestinal (Abdomen): normal bowel sounds, soft, nontender, no hepato splenomegaly Musculoskeletal: no cyanosis or clubbing, extremities motor strength 5/5 Gait: normal gait Skin: no rashes, warm and dry Neurologic: PERRL, EOMI, accommodation nl, no face palsy, no dysarthria Psychiatric: A+Ox3, euthymic affect Lymphatic: no cervical or axillary lymphadenopathy Results & Data Vital Signs (Past 12 Hours) Vital Signs Temp Pulse Resp BP Pulse Ox 06/17/19 11:12 36.5 C 70 18 131/61 94 06/17/19 05:16 36.7 C 76 22 152/94 H 91 PG Care Time/CCT Total # of Minutes Spent Total Time Spent with Patient: Total time spent is greater than 50% in coordination of care (as documented) at patient's floor/unit and/or counseling patient:
[2019-06-17] MEDS: WARFARIN SOD 3 MG TAB PO SCH (15:49)
[2019-06-17] MEDS: predniSONE 20 MG TAB PO SCH (15:57)
[2019-06-17 19:49] LABS: Partial Thromboplastin Ratio 2.1
[2019-06-17 19:50] LABS: Partial Thromboplastin Time 56.1 Seconds (21.0-31.0)
--- NOTE | 2019-06-17 20:11 | Hospitalist Progress Note ---
Date of Service June 17, 2019 Assessment & Plan (1) Bilateral pulmonary embolism: Hospitalized at [facility] from 06/12 to 06/14. Dx with b/l PEs - unprovoked. Strong family h/o VTE and also personal h/o DVT post- many years ago. On 06/14 discharge she was on coumadin with lovenox bridge. CTA from 06/12 with RLL infiltrate which may have been beginnings of pulmonary infarction. Returns with worsening pleuritic pain over right chest wall c/w RLL pulmonary infarction. We are likely seeing the evolution of her infarction as opposed to treatment failure with lovenox. There may be slightly more PEs on this admission's CTA study however it is likely of small magnitude. Remains on heparin infusion. INR 1.7 today. Resume coumadin 3mg daily today. INR am. Once pain from the pulmonary infarction is improved can d/c heparin, change back to lovenox, and allow d/c home. Appreciate pulmonary and heme/onc consults. Antiphospholipid ab's were negative. Will order lupus anticoagulant. Homocysteine noted to be normal. Prothrombin gene pending. Consider factor 5 leiden mutation testing. I discussed having patient follow up with the [facility] Anticoagulation clinic. She is interested; can refer there on Tuesday. (2) Pulmonary infarct: RLL. Evolving. Pain improved today. Dr Madden recommending prednisone; start 40mg daily. Tramadol prn. Pain should gradually dissipate over the next 1-2 weeks. (3) Pleuritic chest pain: 2nd to RLL pulmonary infarction as above. Prednisone, tramadol prn, morphine prn. (4) Anxiety: Continue paxil. Continue ativan prn. (5) Anemia: Check iron studies, b12, folate in am. CBC in am. (6) Lung nodule: Multiple, right lung - as seen on imaging. Nodule f/u per pulmonary nodule clinic. (7) Chronic kidney disease, stage 3a: creatinine stable. BMP in am. (8) H/O deep venous thrombosis: Noted. Many years ago post-. See discussion above in "bilateral pulmonary embolism." son updated PT eval can d/c home once pain is reasonably controlled again will need [facility] anticoagulation clinic referral at discharge Subjective patient's right-sided pleuritic chest discomfort IS improved with tramadol. she states the tramadol is better than the morphine. has no dyspnea at rest but still having mild RIVAS. tele overnight wnl. no left-sided chest discomfort. no cough. son at bedside; questions answered. son reports that her PCP recently increased the warfarin from 2mg/day to 3mg/day because of subtherapeutic INR. Review of Systems Constitutional: no fever, no chills and no weight loss Respiratory: + dyspnea on exertion; no chest congestion and no hemoptysis Cardiovascular: as per Subjective / HPI, + chest pain and + chest pain at rest; no orthopnea, no paroxysmal nocturnal dyspnea and no edema Gastrointestinal: no abdominal pain Physical Exam Constitutional: well developed and well nourished; no acute distress ENMT: external ear and nose normal, oropharynx normal Neck: trachea midline, no thyromegaly Respiratory: no respiratory distress Auscultation: + diminished lung sounds (RLL) and + rales (RLL); no wheezes Cardiovascular: Rate/Rhythm: regular rate and regular rhythm Heart Sounds: normal S1 and normal S2; no murmur Vessels: posterior tibial pulses present and dorsalis pedis pulses present; no JVD Extremities: no edema Gastrointestinal (Abdomen): normal bowel sounds, soft, nontender, no hepatosplenomegaly Skin: no rashes, warm and dry Psychiatric: A+Ox3, euthymic affect Results & Data Vital Signs (Past 12 Hours) Vital Signs Temp Pulse Pulse Resp BP Pulse Ox 06/17/19 19:38 36.8 C 90 16 128/69 95 06/17/19 15:31 77 06/17/19 15:00 36.9 C 76 18 147/78 H 97 06/17/19 11:12 36.5 C 70 18 131/61 94 Laboratory Results Laboratory Results - last 24 hr 06/17/19 06/17/19 06/17/19 00:18 07:24 07:25 WBC 5.40 RBC 3.42 L Hgb 9.6 L Hct 30.2 L MCV 88.3 MCH 28.1 MCHC 31.8 L RDW Std Deviation 49.3 H RDW Coeff of Alice 15.2 H Plt Count 290 MPV 9.0 PT INR APTT 89.4 H* 66.1 H* PTT Ratio 3.3 2.4 Sodium Potassium Chloride Carbon Dioxide Anion Gap BUN Creatinine Est Cr Clr Drug Dosing Est GFR ( Amer) Est GFR (Non-Af Amer) BUN/Creatinine Ratio Glucose Calcium 06/17/19 06/17/19 06/17/19 07:25 13:14 13:14 WBC RBC Hgb Hct MCV MCH MCHC RDW Std Deviation RDW Coeff of Alice Plt Count MPV PT 16.8 H INR 1.7 H APTT 58.5 H* PTT Ratio 2.2 Sodium 140 Potassium 3.9 Chloride 108 H Carbon Dioxide 27 Anion Gap 5.0 BUN 13 Creatinine 1.00 Est Cr Clr Drug Dosing 50.6 Est GFR ( Amer) 63.4 Est GFR (Non-Af Amer) 54.7 BUN/Creatinine Ratio 12.7 Glucose 111 H Calcium 8.9 06/17/19 19:11 WBC RBC Hgb Hct MCV MCH MCHC RDW Std Deviation RDW Coeff of Alice Plt Count MPV PT INR APTT 56.1 H* PTT Ratio 2.1 Sodium Potassium Chloride Carbon Dioxide Anion Gap BUN Creatinine Est Cr Clr Drug Dosing Est GFR ( Amer) Est GFR (Non-Af Amer) BUN/Creatinine Ratio Glucose Calcium PG Care Time/CCT Total # of Minutes Spent Total Time Spent with Patient: Total time spent is greater than 50% in coordination of care (as documented) at patient's floor/unit and/or counseling patient: (1) Anemia Anemia type: other cause Other causes of anemia: other cause, not classified Qualified Code(s): D64.89 - Other specified anemias
[2019-06-17] MEDS: PARoxetine HCl 20 MG TAB PO SCH (21:25)
[2019-06-17] MEDS: NITROFURANTOIN MACROCRYSTAL 50 MG CAP PO SCH (21:25)
[2019-06-17] MEDS: FAMOTIDINE 20 MG TAB PO SCH (21:25)
[2019-06-17] MEDS: LORazepam 0.5 MG TAB PO PRN (22:55)
[2019-06-18 05:49] LABS: Hemoglobin 9.7 g/dL (12.0-16.0); Mean Corpuscular Hemoglobin 28.1 pg (25-34); Mean Corpuscular Hgb Conc 32.3 g/dL (32-36); Mean Platelet Volume 8.9 fL (7.4-10.4); Platelet Count 350 K/uL (130-400); Red Blood Count 3.45 M/uL (4.2-5.4); White Blood Count 5.95 K/uL (4.8-10.8)
[2019-06-18 06:06] LABS: INR 1.8 (0.9-1.1); Prothrombin Time 17.6 Seconds (9.0-12.0)
[2019-06-18 06:16] LABS: Calcium 9.3 mg/dl (8.5-10.1); Est GFR (African American) 56.5; Est GFR (Non-African American) 48.7
[2019-06-18 06:21] LABS: Ferritin 112.9 ng/ml (8-388)
[2019-06-18 06:42] LABS: Partial Thromboplastin Ratio 2.4
[2019-06-18 06:54] LABS: Partial Thromboplastin Time 65.2 Seconds (21.0-31.0)
[2019-06-18 09:14] LABS: Folate (Folic Acid) 14.41 ng/ml (>5.38)
[2019-06-18] MEDS: predniSONE 20 MG TAB PO SCH (10:41)
[2019-06-18] MEDS: HEPARIN SODIUM/DEXTROSE 25,000 UNITS/500 ML BAG IV SCH (12:35)
--- NOTE | 2019-06-18 13:07 | Hospitalist Progress Note ---
Date of Service June 18, 2019 Assessment & Plan (1) Bilateral pulmonary embolism: Hospitalized at [facility] from 06/12 to 06/14. Dx with b/l PEs - unprovoked. Strong family h/o VTE and also personal h/o DVT post- many years ago. On 06/14, discharge she was on warfarin with Lovenox bridge. - CTA from 06/12 with RLL infiltrate which may have been beginnings of pulmonary infarction. - Returned with worsening pleuritic pain over right chest wall c/w RLL pulmonary infarction. - There may be slightly more PEs on this admission's CTA study however it is likely of small magnitude. - INR 1.8 today. - Continue warfarin 3mg daily today. - INR am. Hypercoagulable work-up includes: Antiphospholipid ab's were negative. Will order lupus anticoagulant. Homocysteine noted to be normal. Prothrombin gene pending. Consider factor 5 leiden mutation testing. (2) Pulmonary infarct: RLL. Evolving. - Pain improved today. - Dr. Madden recommending prednisone; started 40mg daily. - Tramadol PRN. - Pain should gradually dissipate over the next 1-2 weeks. (3) Anxiety: Some concerns regarding the pleuritic pain. Tolerable level at present. - Continue paxil & Ativan prn. (4) Anemia: Baseline hgb of 11.5; down to 9.7 today. Iron sat is 12%, but otherwise normal. B12/folate normal. - Monitor (5) Lung nodule: Multiple, right lung - as seen on imaging. - Nodule f/u per pulmonary nodule clinic. (6) Chronic kidney disease, stage 3a: Creatinine stable at 1.0-1.1, eGFR ~50. - Monitor (7) H/O deep venous thrombosis: Noted. Many years ago post-. - On heparin gtt and warfarin Subjective Some mild pain in the right chest with deep inspiration. Reports no fevers/chills, chest pain, shortness of breath, abdominal pain, nausea, or vomiting. Physical Exam Constitutional: WD/WN, vitals as above Eyes: EOM intact bilaterally; no conjunctival abnormality ENMT: external ear and nose normal, oropharynx normal Neck: trachea midline, no thyromegaly normal visual inspection Respiratory: normal respiratory effort, lungs clear to auscultation no respiratory distress Cardiovascular: RRR, no murmur, no edema Gastrointestinal (Abdomen): Inspection/Auscultation: abdomen normal to inspection; abdomen not distended Musculoskeletal: no cyanosis or clubbing, extremities motor strength 5/5 Skin: no rashes, warm and dry Neurologic: moves all extremities and awake Psychiatric: Orientation: alert, oriented to person and cooperative Results & Data Vital Signs (Past 12 Hours) Vital Signs Temp Pulse Pulse Resp BP BP Pulse Ox 06/18/19 11:02 36.6 C 73 17 150/87 H 94 06/18/19 08:00 61 06/18/19 07:15 36.5 C 96 H 18 159/78 H 95 06/18/19 03:34 36.5 C 86 18 153/95 H 93 PG Care Time/CCT Total # of Minutes Spent Total Time Spent with Patient: Total time spent is greater than 50% in coordination of care (as documented) at patient's floor/unit and/or counseling patient: (1) Anemia Anemia type: other cause Other causes of anemia: other cause, not classified Qualified Code(s): D64.89 - Other specified anemias
--- NOTE | 2019-06-18 15:55 | Pulmonology Progress Note ---
Date of Service June 18, 2019 Assessment & Plan (1) Bilateral pulmonary embolism: Impression: 78-year-old female with DVT/PE admitted with chest discomfort likely secondary to visceral pleural irritation. Recommendations: 1. Acute PE: Continue anticoagulation. INR of 2-3 should be adequate. Lovenox overlap until Coumadin is therapeutic recommended. No signs of right heart strain. Given the recurrent events, lifelong anticoagulation is recommended. 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 2. Chest pain: Suspect early pulmonary infarct or irritation. No indication for steroids currently and these will be discontinued. If pain is an issue, nonsteroidal anti-inflammatories may be beneficial. 3. Patient is stable for discharge home. She can follow-up with her primary care provider or we would be happy to see her back in the pulmonary clinic if needed. Discussed with Dr. Rios. (2) Lung nodule: (3) Chest pain: Subjective Patient is awake alert and conversant. No shortness of breath. Her pain is better. She is not coughing or wheezing. No palpitations. She is ambulatory. No syncope or presyncope. No significant lower extremity edema. Review of Systems Review of Systems: Unchanged from prior Physical Exam Constitutional: WD/WN, vitals as above Eyes: EOM intact bilaterally; no conjunctival abnormality ENMT: external ear and nose normal, oropharynx normal Neck: trachea midline, no thyromegaly normal visual inspection Respiratory: normal respiratory effort, lungs clear to auscultation no respiratory distress Cardiovascular: RRR, no murmur, no edema Gastrointestinal (Abdomen): Inspection/Auscultation: abdomen normal to inspection; abdomen not distended Musculoskeletal: no cyanosis or clubbing, extremities motor strength 5/5 Skin: no rashes, warm and dry Neurologic: moves all extremities and awake Psychiatric: Orientation: alert, oriented to person and cooperative Results & Data Vital Signs (Past 12 Hours) Vital Signs Temp Pulse Pulse Resp BP BP Pulse Ox 06/18/19 15:47 36.9 C 89 18 170/98 H 92 06/18/19 11:02 36.6 C 73 17 150/87 H 94 06/18/19 08:00 61 06/18/19 07:15 36.5 C 96 H 18 159/78 H 95 Laboratory Results 06/18/19 05:27 06/18/19 05:27 Diagnostic Findings CTA from 06/16/2019 was independently reviewed PG Care Time/CCT Total # of Minutes Spent Total Time Spent with Patient: Total time spent is greater than 50% in coordination of care (as documented) at patient's floor/unit and/or counseling patient:
[2019-06-18] MEDS: WARFARIN SOD 3 MG TAB PO SCH (15:58)
[2019-06-18] MEDS: FAMOTIDINE 20 MG TAB PO SCH (20:06)
[2019-06-18] MEDS: PARoxetine HCl 20 MG TAB PO SCH (20:06)
[2019-06-18] MEDS: NITROFURANTOIN MACROCRYSTAL 50 MG CAP PO SCH (20:06)
[2019-06-18] MEDS ORDERED: ONDANSETRON INJ 2 MG/ML 2 ML VIAL IV PRN (22:36)
[2019-06-18] MEDS ORDERED: ALUMINUM/MAGNESIUM SUSP 30 ML UDC PO PRN (22:36)
[2019-06-18] MEDS ORDERED: ONDANSETRON INJ 2 MG/ML 2 ML VIAL ONE (22:40)
[2019-06-19] MEDS ORDERED: PROCHLORPERAZINE 5 MG in SYRINGE 4 ML IV PRN
[2019-06-19] MEDS: LORazepam 0.5 MG TAB PO PRN (00:47)
[2019-06-19 06:38] LABS: Hematocrit (blood only) 30.7 % (37-47); Hemoglobin 9.6 g/dL (12.0-16.0); Mean Corpuscular Hemoglobin 27.8 pg (25-34); Mean Corpuscular Hgb Conc 31.3 g/dL (32-36); Mean Platelet Volume 8.6 fL (7.4-10.4); Platelet Count 352 K/uL (130-400); RDW Coefficient of Variation 15.2 % (11.5-14.5); RDW Standard Deviation 49.5 fL (36.4-46.3); Red Blood Count 3.45 M/uL (4.2-5.4); White Blood Count 8.21 K/uL (4.8-10.8)
[2019-06-19 07:03] LABS: INR 2.3 (0.9-1.1); Partial Thromboplastin Ratio 3.1; Prothrombin Time 22.1 Seconds (9.0-12.0)
[2019-06-19 07:35] LABS: Partial Thromboplastin Time 83.5 Seconds (21.0-31.0)
[2019-06-19] MEDS: predniSONE 20 MG TAB PO SCH (08:13)
--- NOTE | 2019-06-19 16:36 | Discharge Summary ---
Date of Service June 19, 2019 Admission HPI Per Admitting Provider The patient is a 78 year old female, with recent history of bilateral pulmonary embolism, who presents to the Emergency Room with complaints of an episode of right sided chest pain that began approximately one and a half hours ago. The patient admits to being discharged from [facility] two days ago with a diagnosis of bilateral pulmonary emboli. The patient states she is still on both Coumadin and Lovenox from the [facility] discharge. The patient reports her present pain is mainly right under her right breast. The patient notes the pain is worsened with breathing and when she gets up and starts moving around. She rates her pain currently as a 7/10. The patient denies experiencing similar pain when she came into the ED prior to being diagnosed with the pulmonary emboli. The patient denies a fever, fall, trauma, or rash to the area. The patient reports of a non- productive cough that she states is more prominent at night. The patient states she has not taken anything for the pain to this point, and she notes she has a sulfur allergy. The patient states she got her INR checked yesterday morning at her PCP-Dr. Davis office, but the patient cannot recall what exactly her INR level was. The further work-up done in the ER shows that patient has right-sided pulmonary infarction and increasing pulmonary embolism on the left side. She was started on IV heparin drip and will be admitted for further evaluation and management. No syncope. No palpitation. No dyspnea. She complains of arthritic pains in the legs. Principal Diagnosis Pulmonary embolism Discharge Exam Constitutional WD/WN, vitals as above Eyes EOM intact bilaterally; no conjunctival abnormality ENMT external ear and nose normal, oropharynx normal Neck trachea midline, no thyromegaly normal visual inspection Respiratory normal respiratory effort, lungs clear to auscultation no respiratory distress Cardiovascular RRR, no murmur, no edema Gastrointestinal (Abdomen) Inspection/Auscultation: abdomen normal to inspection; abdomen not distended Musculoskeletal no cyanosis or clubbing, extremities motor strength 5/5 Skin no rashes, warm and dry Neurologic moves all extremities and awake Psychiatric Orientation: alert, oriented to person and cooperative Discharge Data Allergies Allergy/AdvReac Type Severity Reaction Status Date / Time Sulfa (Sulfonamide Allergy Mild HEADACHE, Verified 06/12/19 11:14 Antibiotics) VERTIGO Consultations 06/16/19 11:10 ED Decision to Admit Stat 06/16/19 12:53 Consult Hematology Routine Consult Pulmonology Routine Ordered Studies 06/16/19 09:37 CT angio chest PE protocol Stat 06/16/19 11:37 US venous doppler LE Stat Hospital Course (1) Bilateral pulmonary embolism: Hospitalized at [facility] from 06/12 to 06/14. Dx with b/l PEs - unprovoked. Strong family h/o VTE and also personal h/o DVT post- many years ago. On 06/14, discharge she was on warfarin with Lovenox bridge. - CTA from 06/12 with RLL infiltrate which may have been beginnings of pulmonary infarction. - Returned with worsening pleuritic pain over right chest wall c/w RLL pulmonary infarction. - INR 2.3 on discharge - Continue warfarin 3mg daily today. Will get INR with PCP tomorrow and start up with [facility] on Tuesday. Hypercoagulable work-up includes: Antiphospholipid ab's were negative. Homocysteine noted to be normal. Prothrombin gene pending. Consider factor 5 Leiden mutation testing. (2) Pulmonary infarct: RLL. Evolving. - Pain improved throughout hospital stay. - Pain should gradually dissipate over the next 1-2 weeks. - Use NSAIDs PRN per pulmonology (3) Anxiety: Some concerns regarding the pleuritic pain. Tolerable level at present. - Continue paxil & Ativan prn. (4) Anemia: Baseline hgb of 11.5; down to 9.6 today. Iron sat is 12%, but otherwise normal. B12/folate normal. Stable over the last 2 days prior to discharge. - Monitor with CBC in 1-2 weeks. Be sure patient has appropriate colonoscopy screening. (5) Lung nodule: Multiple, right lung - as seen on imaging. - Nodule f/u per pulmonary nodule clinic. (6) Chronic kidney disease, stage 3a: Creatinine stable at 1.0-1.1, eGFR ~50. - Monitor (7) H/O deep venous thrombosis: Noted. Many years ago post-. Nonocclusive linear echogenic focus within the right peroneal veins consistent with chronic thrombus was seen on Doppler on 06/12. - On warfarin Total Time Total Time Spent Total Time Spent (In Minutes): 45 Discharge Plan Discharge Items Patient Disposition: Home - Self-Care Reason For Visit: PE Discharge Diagnosis: Pulmonary embolism Activity: Resume your previous activity Non-emergency contact: Primary Care Provider Call non-emergency contact if: your symptoms worsen, your pain is not controlled and your pain is worsening Follow-up/Referrals: [facility] [Provider Group] - 06/25/19 8:45 am (Please, follow up at [facility] on TuesdayJune 25 at 9:00 am (arrive 8:45 am). *The clinic is located in the rear of this hospital building. [address]IND [address] HOSPITAL [address] AND ENTER VIA THE [employer] [facility] [employer]. If you need to change this appointment, call the central scheduling department at [phone]. PLEASE, FOLLOW UP WITH DR. AMBERLY BRINK FOR LABS UNTIL YOU ARE ABLE TO BECOME ESTABLISHED AT THE ANTICOAGULATION CLINIC.) Nicolas Moreno MD [Primary Care Provider] - 06/20/19 10:00 am (Please, follow up at Dr. Amberly Brink on TuesdayJune 20, between 9:00 am - 11:00 am, for labs. *If you have any questions, call the office at [phone]. Dr. Amberly Brink will see you for a hospital follow up visit on TuesdayJune 25 at 2:00 pm. If you need to change this appointment, call his office at [phone].) Diet: Regular Addtl Attending Provider Instructions: You were admitted for your pulmonary embolism which had been diagnosed during your prior admission. The pain in your chest may be from lung tissue that needs to repair and recover after the blood clot in your lung. Your INR was 2.3 on discharge, and you DO NOT need Lovenox anymore. Just take your warfarin 3mg daily from now on. You will have your blood (INR) monitored at Dr. Amberly Brink's office tomorrow and then your next check will be on Tuesday at the Anticoagulation Clinic. You are more likely to have bleeding while on a blood thinner, so please be careful when cutting vegetables and be careful about any falls or trips. If you're having pain, for the next week or so, please use ibuprofen or naproxen within the recommendations on the bottle. Pending Studies at Discharge: No Stand-Alone Forms: My [facility], Smoking Cessation Medications and DC Order Prescriptions: New warfarin [Coumadin] 3 mg Tablet 3 mg PO DAILY@1600 Qty: 30 RF: 0 Continued famotidine 20 mg tablet 40 mg PO HS RF: 0 lorazepam 0.5 mg tablet 0.5 mg PO TID PRN (Reason: Anxiety) RF: 0 paroxetine HCl 20 mg tablet 20 mg PO HS RF: 0 nitrofurantoin macrocrystal 50 mg capsule 50 mg PO HS RF: 0 Discontinued enoxaparin [Lovenox] 120 mg/0.8 mL syringe 120 mg SQ DAILY 4 Days Qty: 3.2 RF: 0 warfarin 2 mg tablet 2 mg PO DAILY Qty: 5 RF: 0 Discharge Orders: Discharge Order (Routine); Ordered 06/19/19 Ordered By: Marco Rios Admission Data Admit Date/Time: 06/16/19 11:32 Attending Provider: Marco Rios Admit Provider: Brad Weber Primary Care Provider: Nicolas Moreno Other Providers: Brad Weber ; Miguel Aguilar Jeffrey A. Other Interventions: Discharge Summary Assessment (RN) Last Done: 06/19/19 11:25 DC Date/Time DO NOT enter until pt leaves facility: 06/19/19 11:55
== END 2019-06-19 11:55 | disposition home or self-care (01) | DRG 176 ==
LOC: ED 09:03 → 2E 11:32 → SUATTDRO 11:32 → 2E 12:14

== ENCOUNTER 2022-01-02 22:53 | Observation (INO) ==
[2022-01-02] MEDS ORDERED: ONDANSETRON INJ 2 MG/ML 2 ML VIAL IV STA (23:14)
[2022-01-02 23:32] LABS: Basophils # (auto) 0.01 K/uL (0-0.2); Basophils % (auto) 0.1 %; Eosinophils # (auto) 0.11 K/uL (0-0.5); Eosinophils % (auto) 1.4 %; Hematocrit (blood only) 31.5 % (37-47); Hemoglobin 9.8 g/dL (12.0-16.0); Immature Granulocytes # (auto) 0.03 K/uL (0.00-0.02); Immature Granulocytes % (auto) 0.4 %; Lymphocytes # (auto) 1.47 K/uL (1.2-3.4); Lymphocytes % (auto) 18.1 %; Mean Corpuscular Hemoglobin 27.1 pg (25-34); Mean Corpuscular Hgb Conc 31.1 g/dL (32-36); Mean Corpuscular Volume 87.3 fL (80-100); Mean Platelet Volume 9.5 fL (7.4-10.4); Monocytes # (auto) 0.75 K/uL (0.11-0.59); Monocytes % (auto) 9.2 %; Neutrophils # (auto) 5.74 K/uL (1.4-6.5); Neutrophils % (auto) 70.8 %; Platelet Count 290 K/uL (130-400); RDW Coefficient of Variation 16.9 % (11.5-14.5); RDW Standard Deviation 53.4 fL (36.4-46.3); Red Blood Count 3.61 M/uL (4.2-5.4); White Blood Count 8.11 K/uL (4.8-10.8)
[2022-01-02 23:38] LABS: iSTAT Creatinine 3.2 mg/dl (0.6-1.3); iSTAT Hemoglobin 10.5 g/dl (12.0-16.0); iSTAT Ionized Calcium 1.2 mmol/l (1.12-1.32); iSTAT Potassium 4.3 mmol/L (3.3-5.0)
[2022-01-02 23:38] LABS: INR 2.2 (0.9-1.1); Partial Thromboplastin Ratio 1.1; Partial Thromboplastin Time 29.7 Seconds (21.0-31.0); Prothrombin Time 22.2 Seconds (9.0-12.0)
[2022-01-02 23:53] LABS: Alanine Aminotransferase 13 U/L (7-52); Albumin Globulin Ratio 1.3 (0.9-2); Albumin Level 4.3 gm/dl (3.4-5.0); Alkaline Phosphatase 44 U/L (34-104); Anion Gap 10 (3-11); Aspartate Aminotransferase 19 U/L (13-39); BUN Creatinine Ratio 11.7 (10-20); Bilirubin,Total 0.4 mg/dl (0.2-1.0); Blood Urea Nitrogen 36 mg/dl (6-23); Calcium 9.3 mg/dl (8.5-10.1); Carbon Dioxide 23 mmol/L (21-32); Chloride 105 mmol/L (98-107); Est GFR (African American) 15.9 ml/min; Est GFR (Non-African American) 13.7 ml/min; Globulin 3.3 gm/dl (2.5-4.0); Glucose 165 mg/dl (70-99(Fasting)); Magnesium 2.1 mg/dl (1.7-2.4); Potassium 4.3 mmol/L (3.5-5.1); Sodium 138 mmol/L (136-145); Total Protein 7.6 gm/dl (6.0-8.3)
[2022-01-02 23:54] LABS: Troponin I High Sensitivity 10.5 pg/ml (0-14)
[2022-01-03] MEDS ORDERED: ONDANSETRON INJ 2 MG/ML 2 ML VIAL ONE (02:52)
--- NOTE | 2022-01-03 03:27 | History & Physical Report ---
Date of Service January 03, 2022 Assessment & Plan (1) Intractable nausea and vomiting: Plan: Intractable nausea and vomiting/generalized weakness/pulsatile tinnitus- CT of head negative With acute onset of patient's symptoms, there is concern regarding a posterior stroke or vertebrobasilar insufficiency Unable to order CT angiography due to CKD stage V Order MRI brain, MRA of head and neck without contrast Permissive hypertension Patient will temporarily be n.p.o. due to significant nausea and vomiting (2) Generalized weakness: Plan: See above (3) Asthma-COPD overlap syndrome: Plan: As needed DuoNebs (4) Stage 5 chronic kidney disease not on chronic dialysis: Plan: Creatinine 3.09 upon admission, with range 3.06-3.79 Continue usual medications. Follow laboratory serially (5) Bilateral pulmonary embolism: Plan: Bilateral pulm emboli/history of DVT- Temporarily hold warfarin due to nausea vomiting Recheck PT/INR in a.m. If becoming Therapeutic, and patient still has symptoms, will place on Lovenox subcu therapeutically at that time (6) Pulsatile tinnitus of both ears: Plan: See above (7) Hypertension: Plan: Hold medications to allow for permissive hypertension until work-up complete History of Present Illness Chief Complaint: The patient is brought to the emergency department due to acute onset of generalized weakness, intractable nausea and vomiting, and a whooshing sound in her ears that began this evening after her friends went home after playing a card game of [employer]. Primary Care Provider: NO PCP The patient is a 81-year-old female with a past medical history including asthma-COPD overlap syndrome, secondary hyperparathyroidism, vitamin D deficiency, stage V chronic kidney disease not on dialysis, bilateral PE, pulmonary infarct, history of DVT, multiple pulmonary nodules, acute cystitis, anxiety, left eye amaurosis fugax, recurrent urinary tract infection, blind left eye and fibula fracture. Patient presents to the emergency department as noted above. She continued to have nausea and vomiting while in the ED, with symptoms somewhat but not completely responsive to Zofran. She reports there is no abdominal pain, and this was not associated with food intake this evening. She denies any recent changes in her medications. She denies any recent travels or sick exposures. Allergies Allergy/AdvReac Type Severity Reaction Status Date / Time Sulfa (Sulfonamide Allergy Mild HEADACHE, Verified 11/30/21 14:51 Antibiotics) VERTIGO nitrofurantoin AdvReac Severe renal Verified 11/30/21 14:51 insufficiency Home Medications Medication Instructions Recorded Confirmed Type lorazepam 0.5 mg tablet 0.5 mg PO TID PRN 06/12/19 01/02/22 History paroxetine HCl 20 mg tablet 20 mg PO HS 06/12/19 01/02/22 History aspirin 81 mg tablet,delayed 81 mg PO DAILY 07/02/19 01/02/22 History release (Adult Low Dose Aspirin) diphenhydramine 25 25 - 500 tab PO HS tab 02/21/20 01/02/22 History mg-acetaminophen 500 mg tablet calcitriol 0.5 mcg capsule 0.5 mcg PO UD #45 cap 12/29/20 01/02/22 Rx amlodipine 5 mg tablet 5 mg PO DAILY #90 tab 02/23/21 01/02/22 Rx warfarin 3 mg tablet See Rx Instructions PO UD #90 tab 05/12/21 01/02/22 Rx epoetin kole 40,000 unit/mL 40,000 unit SUBCUT .q2w 60 Days ml 07/15/21 01/02/22 Rx injection solution albuterol sulfate 90 mcg/actuation 2 puff INH Q6H PRN #18 gm 11/30/21 01/02/22 Rx aerosol inhaler budesonide-formoterol HFA 160 2 puff INH BID #10.2 gm 11/30/21 01/02/22 Rx mcg-4.5 mcg/actuation aerosol inhaler (Symbicort) fluticasone propionate 50 1 spray INTNAS DAILY #9.9 gm 11/30/21 01/02/22 Rx mcg/actuation nasal spray,suspension (Allergy Relief (fluticasone)) Past Med/Surg History Medical History (Updated 01/03/22 @ 04:51 by Erich Araya MD) Amaurosis fugax of left eye Anxiety Blind left eye Fibula fracture History of broken leg Hx of blood clots Hx: UTI (urinary tract infection) Lung nodule Pulmonary emboli Recurrent UTI Secondary hyperparathyroidism of renal origin Stage 5 chronic kidney disease not on chronic dialysis Vitamin D deficiency Vitamin D deficiency Surgical History Hx of hysterectomy Family History Mother Blood clot in vein Father Myocardial infarction Sister Blood clot in vein Aunt Blood clot in vein Social History Smoking Status: Unknown if ever smoked Second Hand Exposure: No; Hx Alcohol Use: No Hx Substance Use: No Preferred Language: Gabonese Communication Ability: Effective Line Locator Required: No Beliefs That Will Affect Care: None marital status: / Current Living Situation: Alone current occupational status: retired Feels Safe at Home: Yes Dental Care, Regularly: Yes Seatbelt Use: always Sunscreen Use: Yes Assistive Devices: None Review of Systems Review of Systems: The patient denies chest pain, palpitations, shortness of breath, dyspnea on exertion, cough, lower extremity swelling, sore throat, fevers, chills, sweats, diarrhea , constipation, abdominal pain, pelvic pain, blood in urine or stool, dysuria, urinary frequency or urgency, loss of consciousness, rash, abnormal bruising or bleeding, focal weakness, back or neck pain, or night sweats. The review of systems is otherwise negative other than for that already noted above, and at least 10 systems have been reviewed. Physical Exam Physical Exam: The patient is awake, difficulty responding due to nausea and vomiting. Well developed and well nourished, normocephalic and atraumatic. HEENT--PERRL, EOMI, mucous membranes and oropharynx dry. Neck--supple. No JVD. No bruits. Thyroid normal, trachea midline, no adenopathy. Heart--normal S1 and S2. No murmurs, rubs or gallops. Lungs--clear bilaterally, no respiratory distress, no accessory muscle use. Abdomen--normal bowel sounds and soft. Nontender. Nondistended, no hernias or masses, no organomegaly. Extremities--no cyanosis or clubbing. No edema. Dermatologic--normal skin turgor, normal color, no abnormal lymph nodes, no rash. Neurologic--cranial nerves II through XII grossly intact. Rheumatologic--limited exam due to nausea and vomiting Psychiatric--normal affect. Results & Data Results & Data ([facility]) Vital Signs (Past 12 Hours) Vital Signs Temp Pulse Resp BP Pulse Ox 01/03/22 02:31 99 01/03/22 02:30 167/78 H 01/03/22 02:29 97 01/03/22 02:20 99 01/03/22 02:10 99 01/03/22 02:01 98 01/03/22 02:00 181/86 H 01/03/22 01:59 98 01/03/22 01:50 98 01/03/22 01:40 97 01/03/22 01:31 98 01/03/22 01:30 176/86 H 01/03/22 01:29 99 01/03/22 01:20 98 01/03/22 01:10 98 01/03/22 01:01 183/109 H 98 01/03/22 01:00 95 01/03/22 00:50 97 01/03/22 00:47 193/101 H 97 01/03/22 00:40 97 01/03/22 00:30 97 01/03/22 00:20 98 01/03/22 00:10 95 01/03/22 00:00 96 01/02/22 23:57 193/103 H 97 01/02/22 23:56 200/114 H 98 01/02/22 23:55 97 01/02/22 23:30 86 15 91 01/02/22 23:20 91 H 17 90 01/02/22 23:11 88 18 94 01/02/22 22:38 37.2 C 89 18 197/95 H 97 Laboratory Results Laboratory Results WBC 8.11 K/uL (4.8-10.8) 01/02/22 23:15 RBC 3.61 M/uL (4.2-5.4) L 01/02/22 23:15 Hgb 9.8 g/dL (12.0-16.0) L 01/02/22 23:15 POC Hgb 10.5 g/dl (12.0-16.0) L 01/02/22 23:24 Hct 31.5 % (37-47) L 01/02/22 23:15 POC Hct 31 % (37-47) L 01/02/22 23:24 MCV 87.3 fL (80-100) 01/02/22 23:15 MCH 27.1 pg (25-34) 01/02/22 23:15 MCHC 31.1 g/dL (32-36) L 01/02/22 23:15 RDW Std Deviation 53.4 fL (36.4-46.3) H 01/02/22 23:15 RDW Coeff of Alice 16.9 % (11.5-14.5) H 01/02/22 23:15 Plt Count 290 K/uL (130-400) 01/02/22 23:15 MPV 9.5 fL (7.4-10.4) 01/02/22 23:15 Immature Gran % (Auto) 0.4 % 01/02/22 23:15 Neut % (Auto) 70.8 % 01/02/22 23:15 Lymph % (Auto) 18.1 % 01/02/22 23:15 Wright % (Auto) 9.2 % 01/02/22 23:15 Eos % (Auto) 1.4 % 01/02/22 23:15 Baso % (Auto) 0.1 % 01/02/22 23:15 Neut # (Auto) 5.74 K/uL (1.4-6.5) 01/02/22 23:15 Lymph # (Auto) 1.47 K/uL (1.2-3.4) 01/02/22 23:15 Wright # (Auto) 0.75 K/uL (0.11-0.59) H 01/02/22 23:15 Eos # (Auto) 0.11 K/uL (0-0.5) 01/02/22 23:15 Baso # (Auto) 0.01 K/uL (0-0.2) 01/02/22 23:15 Immature Gran # (Auto) 0.03 K/uL (0.00-0.02) H 01/02/22 23:15 PT 22.2 Seconds (9.0-12.0) H 01/02/22 23:15 INR 2.2 (0.9-1.1) H 01/02/22 23:15 APTT 29.7 Seconds (21.0-31.0) 01/02/22 23:15 PTT Ratio 1.1 01/02/22 23:15 POC Sodium 139 mmol/L (135-144) 01/02/22 23:24 Sodium 138 mmol/L (136-145) 01/02/22 23:15 POC Potassium 4.3 mmol/L (3.3-5.0) 01/02/22 23:24 Potassium 4.3 mmol/L (3.5-5.1) 01/02/22 23:15 POC Chloride 107 mmol/L (101-112) 01/02/22 23:24 Chloride 105 mmol/L (98-107) 01/02/22 23:15 Carbon Dioxide 23 mmol/L (21-32) 01/02/22 23:15 POC Total CO2 23 mmol/L (24-31) L 01/02/22 23:24 Anion Gap 10 (3-11) 01/02/22 23:15 POC Anion Gap 14.0 mmol/L (16-25) L 01/02/22 23:24 POC BUN 35 mg/dl (7-18) H 01/02/22 23:24 BUN 36 mg/dl (6-23) H 01/02/22 23:15 Creatinine 3.09 mg/dl (0.6-1.2) H 01/02/22 23:15 POC Creatinine 3.2 mg/dl (0.6-1.3) H 01/02/22 23:24 Est Cr Clr Drug Dosing Not Reportable 01/02/22 23:15 Est GFR ( Amer) 15.9 ml/min 01/02/22 23:15 Est GFR (Non-Af Amer) 13.7 ml/min 01/02/22 23:15 BUN/Creatinine Ratio 11.7 (10-20) 01/02/22 23:15 Glucose 165 mg/dl (70-99(Fasting)) H 01/02/22 23:15 POC Glucose (other) 172 mg/dl (70-99) H 01/02/22 23:24 Calcium 9.3 mg/dl (8.5-10.1) 01/02/22 23:15 POC Ioniz Calcium Jeovany 1.20 mmol/l (1.12-1.32) 01/02/22 23:24 Magnesium 2.1 mg/dl (1.7-2.4) 01/02/22 23:15 Total Bilirubin 0.4 mg/dl (0.2-1.0) 01/02/22 23:15 AST 19 U/L (13-39) 01/02/22 23:15 ALT 13 U/L (7-52) 01/02/22 23:15 Alkaline Phosphatase 44 U/L (34-104) 01/02/22 23:15 Troponin I High Sens 14.0 pg/ml (0-14) 01/03/22 03:00 Total Protein 7.6 gm/dl (6.0-8.3) 01/02/22 23:15 Albumin 4.3 gm/dl (3.4-5.0) 01/02/22 23:15 Globulin 3.3 gm/dl (2.5-4.0) 01/02/22 23:15 Albumin/Globulin Ratio 1.3 (0.9-2) 01/02/22 23:15 SARS-CoV-2, RNA, NAAT NEGATIVE (NEGATIVE) 01/03/22 00:04 Blood Type A Positive 01/02/22 23:29 Antibody Screen NEGATIVE 01/02/22 23:29 Diagnostic Findings [facility] Patient: JAZMÍN CARPENTER (Female) : 44 Status: ER Date: 01/02/22 23:51 Room #: History: NAUSEA , VOMITING , WEAKNESS , CONFUSION Slices: 58 Priors: Tech: Suman Marshall @ [phone] Exams: CT HEAD Contrast: Accession Numbers: [id number] Referring Physician: FLORECITA GUPTA Preliminary Findings Only See Final Report For Complete Findings CT HEAD: No evidence of acute intracranial pathology. Mild nonspecific white matter ch anges. Left mastoid effusion. Bilateral TMJ arthropathy. Right lens replacement. No comparisons. Radiologist: Julissa Baer MD Study ready at 23:56 and initial results transmitted at 00:21 *This report constitutes a preliminary interpretation only. Non-acute findings felt to be unrelated to the clinical presentation may not be discussed in this report. The study will be interpreted and a final report will be generated by the local Radiologist the following shift. To reach the [facility] radiology department call [phone]. If a discrepancy is found between the preliminary and final interpretations of this study, please notify us via our Client Portal at [email or web address], under QA Exams. You can also fax this report with a description of the discrepancy, or include the final report, to our daytime fax number [phone]. If faxing, please indicate the severity of discrepancy using one of the following categories: [ ] 1 - Agree/Informational [ ] 2 - Unlikely to Affect Management [ ] 3 - Possible Eventual Change of Management [ ] 4 - Probable Immediate Change of Management For all other patient related information, please fax us at [phone]. [id number] Code Status & VTE Plan Code Status Full code VTE Prophylaxis Plan VTE Prophylaxis will be ordered: Yes PG Care Time/CCT Total # of Minutes Spent Total Time Spent with Patient: Total time spent is greater than 50% in coordination of care (as documented) at patient's floor/unit and/or counseling patient: Coding Level of Care Code INT OBSERVATION CARE 70M LVL 3 Diagnoses Intractable nausea and vomiting R11.2 Generalized weakness R53.1 Asthma-COPD overlap syndrome J44.9 Stage 5 chronic kidney disease not on chronic dialysis N18.5 Bilateral pulmonary embolism I26.99 Pulsatile tinnitus of both ears H93.A3 Hypertension I10
[2022-01-03] MEDS ORDERED: SODIUM CHLORIDE 0.9% 1000ML 1,000 ML IV SCH (03:58)
[2022-01-03] MEDS ORDERED: PHARMACIST DISCHARGE MED REC CONSULT PRN (03:58)
[2022-01-03] MEDS ORDERED: ONDANSETRON INJ 2 MG/ML 2 ML VIAL IV PRN (03:58)
--- NOTE | 2022-01-03 07:12 | Emergency Department Note ---
Impression & Plan Weakness, Nausea & vomiting Admit to the [facility] ED Provider Note NAME: JAZMÍN CARPENTER AGE: 81 SEX: F ARRIVES VIA: Ambulance INFORMANT: Patient and her daughter ED PROVIDER(S): Yumiko Mcmahon DO CHIEF COMPLAINT: Weakness; nausea and vomiting PLAN: Disposition: Admit to the [facility] Condition: Good MEDICAL DECISION MAKING: This is a 81-year-old female patient had a sudden onset of severe generalized weakness and nausea and vomiting. CT scan of the brain was negative. There is no evidence of an acute urinary tract infection. Vital signs remained unremarkable. The patient had an episode of jaw pain yesterday. She has a normal EKG and negative high-sensitivity troponin. There was no significant electrolyte abnormality and no evidence of hypo or hyperglycemia. I discussed the case with the [facility] hospitalist and they will evaluate for further management. I remain concerned about the possibility of a posterior circulation stroke. The patient will require MRI/MRI of the brain and neck. Triage Nursing notes reviewed and agree with them. Additional history obtained from patient's daughter who is a nurse and was at the bedside Prior medical records reviewed Vital Signs: reviewed and remarkable for moderate hypertension upon presentation Differential diagnosis: Intracranial hemorrhage, posterior circulation stroke, vertigo, hypertensive crisis, hypoglycemia, hyperglycemia, UTI, foodborne illness Diagnostics interpreted by me: ECG: Normal sinus rhythm at a rate of [address]/T wave changes. There is no ectopy. There are no signs of ischemia. Cardiac Monitoring: Normal sinus rhythm at a rate of 98 Laboratory studies: See below Imaging studies: As per stat rad CT head: No evidence of acute intracranial pathology. Mild nonspecific white matter changes. Left mastoid effusion. Bilateral TMJ arthropathy. Right lens replacement. No comparisons. HPI: 81/F arrives for evaluation of weakness and nausea/vomiting. The patient had been playing cards all evening and was feeling fine. Once her friends left, the patient had a sudden onset of profound weakness, nausea and vomiting. No one else from the card playing [employer] seem to get sick. Patient did not eat very much at the [facility]. The patient does not have any significant dizziness. She has no chest pain or shortness of breath. She has no diarrhea. ROS: See above HPI for pertinent positives & negatives. A total of 10 systems reviewed and were otherwise negative. PAST MEDICAL HISTORY:See Below PAST SURGICAL HISTORY:See Below FAMILY HISTORY:See Below SOCIAL HISTORY:See Below HOME MEDICATIONS: See list ALLERGIES: See list VITALS:See Below PHYSICAL EXAMINATION: HEENT: Head - normocephalic and atraumatic. Pupils are equal, round, and reactive to light. Extraocular eye muscles are intact and sclera are anicteric. Nose - moist nasal mucosa without discharge. Mouth - moist buccal mucosa. Oropharynx is nonerythematous and there is no tonsillar exudate or edema noted. Neck: Supple; no JVD, nuchal rigidity, cervical lymphadenopathy, or auscultated bruits. Heart: Regular rate and rhythm. There is a normal S1 and S2 with no murmurs, clicks, or gallops appreciated. Lungs: Clear to auscultation bilaterally with no wheezes, rales, or rhonchi. Abdomen: Soft, completely nontender, nondistended, with good bowel sounds. There are no palpable pulsatile masses or hepatosplenomegaly. There is no guarding, rigidity, or rebound noted. Extremities: No evidence of cyanosis, clubbing, or edema. There are easily pal pable peripheral pulses. Neuro: The patient is extremely hard of hearing. patient is awake and alert, oriented to day, time, and place. Muscle strength is 5/5 in all 4 extremities. 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 There are no cerebellar signs. Cranial nerves II through XII are intact. ED COURSE: Times/Reassessments: 2300 the patient was evaluated in room C5. A complete history and physical was performed. An order was placed for continuous cardiac monitoring. The patient was in a normal sinus rhythm at a rate of 98. A twelve-lead EKG was obtained. Laboratory studies were drawn as above. Patient was given a dose of IV Zofran for her nausea. The patient went for CT scan of the brain as described above. I reviewed the results of the laboratory studies with the patient and her daughter. I reviewed the results of the CT. The patient was reevaluated and was sleeping. I discussed the case with the [facility] hospitalist and they will evaluate for further management. 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 Vitamin D deficiency Vitamin D deficiency Surgical History Hx of hysterectomy Family History Mother Blood clot in vein Father Myocardial infarction Sister Blood clot in vein Aunt Blood clot in vein Social History Smoking Status: Never smoker Second Hand Exposure: No; Do You Dip or Chew Tobacco: No; Tobacco Cessation Education Requested by Patient: No Hx Alcohol Use: No Hx Substance Use: No Preferred Language: Italian Communication Ability: Effective 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 Beliefs That Will Affect Care: None marital status: / Current Living Situation: Alone current occupational status: retired Other Information That Helps Us Care for You: No Feels Safe at Home: Yes Safety Concerns: Feels Safe At This Time Dental Care, Regularly: Yes Seatbelt Use: always Sunscreen Use: Yes Assistive Devices: Hearing Aid - Bilateral Allergies Allergies Allergy/AdvReac Type Severity Reaction Status Date / Time Sulfa (Sulfonamide Allergy Mild HEADACHE, Verified 11/30/21 14:51 Antibiotics) VERTIGO nitrofurantoin AdvReac Severe renal Verified 11/30/21 14:51 insufficiency Home Meds Home Medications Medication Instructions Recorded Confirmed lorazepam 0.5 mg tablet 0.5 mg PO TID PRN 06/12/19 01/02/22 paroxetine HCl 20 mg tablet 20 mg PO HS 06/12/19 01/02/22 aspirin 81 mg tablet,delayed 81 mg PO DAILY 07/02/19 01/02/22 release (Adult Low Dose Aspirin) diphenhydramine 25 25 - 500 tab PO HS tab 02/21/20 01/02/22 mg-acetaminophen 500 mg tablet Previous Rx's Medication Instructions Recorded calcitriol 0.5 mcg capsule 0.5 mcg PO UD #45 cap 12/29/20 amlodipine 5 mg tablet 5 mg PO DAILY #90 tab 02/23/21 warfarin 3 mg tablet See Rx Instructions PO UD #90 tab 05/12/21 epoetin kole 40,000 unit/mL 40,000 unit SUBCUT .q2w 60 Days ml 07/15/21 injection solution albuterol sulfate 90 mcg/actuation 2 puff INH Q6H PRN #18 gm 11/30/21 aerosol inhaler budesonide-formoterol HFA 160 2 puff INH BID #10.2 gm 11/30/21 mcg-4.5 mcg/actuation aerosol inhaler (Symbicort) fluticasone propionate 50 1 spray INTNAS DAILY #9.9 gm 11/30/21 mcg/actuation nasal spray,suspension (Allergy Relief (fluticasone)) Results & Data (ED) Vital Signs Vital Signs - 24 hr 01/02/22 22:38 01/02/22 23:11 01/02/22 23:13 Temperature 37.2 C Temperature Source Oral Pulse Rate 89 88 Pulse Rate from SpO2 Sensor 87 Respiratory Rate 18 18 Respiratory Effort / Characteristics Non-Labored Non-Labored Respiratory Depth Normal Normal Blood Pressure 197/95 H Blood Pressure Mean 129 Pulse Oximetry 97 94 Oxygen Delivery Method Room Air Sepsis Recent Fever Within 48 Hours No Sepsis New/Unexplained Change in Mental Status Yes Sepsis Action Taken by Nursing No Action Required 01/02/22 23:20 01/02/22 23:30 01/02/22 23:55 Temperature Temperature Source Pulse Rate 91 H 86 Pulse Rate from SpO2 Sensor 90 85 89 Respiratory Rate 17 15 Respiratory Effort / Characteristics Respiratory Depth Blood Pressure Blood Pressure Mean Pulse Oximetry 90 91 97 Oxygen Delivery Method Sepsis Recent Fever Within 48 Hours Sepsis New/Unexplained Change in Mental Status Sepsis Action Taken by Nursing 01/02/22 23:56 01/02/22 23:57 01/03/22 00:00 Temperature Temperature Source Pulse Rate Pulse Rate from SpO2 Sensor 86 84 88 Respiratory Rate Respiratory Effort / Characteristics Respiratory Depth Blood Pressure 200/114 H 193/103 H Blood Pressure Mean 142 133 Pulse Oximetry 98 97 96 Oxygen Delivery Method Sepsis Recent Fever Within 48 Hours Sepsis New/Unexplained Change in Mental Status Sepsis Action Taken by Nursing 01/03/22 00:10 01/03/22 00:20 01/03/22 00:30 Temperature Temperature Source Pulse Rate Pulse Rate from SpO2 Sensor 86 88 87 Respiratory Rate Respiratory Effort / Characteristics Respiratory Depth Blood Pressure Blood Pressure Mean Pulse Oximetry 95 98 97 Oxygen Delivery Method Sepsis Recent Fever Within 48 Hours Sepsis New/Unexplained Change in Mental Status Sepsis Action Taken by Nursing 01/03/22 00:40 01/03/22 00:47 01/03/22 00:50 Temperature Temperature Source Pulse Rate Pulse Rate from SpO2 Sensor 97 H 86 85 Respiratory Rate Respiratory Effort / Characteristics Respiratory Depth Blood Pressure 193/101 H Blood Pressure Mean 131 Pulse Oximetry 97 97 97 Oxygen Delivery Method Sepsis Recent Fever Within 48 Hours Sepsis New/Unexplained Change in Mental Status Sepsis Action Taken by Nursing 01/03/22 01:00 01/03/22 01:01 01/03/22 01:10 Temperature Temperature Source Pulse Rate Pulse Rate from SpO2 Sensor 81 87 84 Respiratory Rate Respiratory Effort / Characteristics Respiratory Depth Blood Pressure 183/109 H Blood Pressure Mean 133 Pulse Oximetry 95 98 98 Oxygen Delivery Method Sepsis Recent Fever Within 48 Hours Sepsis New/Unexplained Change in Mental Status Sepsis Action Taken by Nursing 01/03/22 01:13 01/03/22 01:20 01/03/22 01:29 Temperature Temperature Source Pulse Rate Pulse Rate from SpO2 Sensor 83 85 Respiratory Rate Respiratory Effort / Characteristics Non-Labored Respiratory Depth Normal Blood Pressure Blood Pressure Mean Pulse Oximetry 98 99 Oxygen Delivery Method Sepsis Recent Fever Within 48 Hours Sepsis New/Unexplained Change in Mental Status Sepsis Action Taken by Nursing 01/03/22 01:30 01/03/22 01:31 01/03/22 01:40 Temperature Temperature Source Pulse Rate Pulse Rate from SpO2 Sensor 84 97 H Respiratory Rate Respiratory Effort / Characteristics Respiratory Depth Blood Pressure 176/86 H Blood Pressure Mean 116 Pulse Oximetry 98 97 Oxygen Delivery Method Sepsis Recent Fever Within 48 Hours Sepsis New/Unexplained Change in Mental Status Sepsis Action Taken by Nursing 01/03/22 01:50 01/03/22 01:59 01/03/22 02:00 Temperature Temperature Source Pulse Rate Pulse Rate from SpO2 Sensor 83 83 Respiratory Rate Respiratory Effort / Characteristics Respiratory Depth Blood Pressure 181/86 H Blood Pressure Mean 117 Pulse Oximetry 98 98 Oxygen Delivery Method Sepsis Recent Fever Within 48 Hours Sepsis New/Unexplained Change in Mental Status Sepsis Action Taken by Nursing 01/03/22 02:01 01/03/22 02:10 01/03/22 02:20 Temperature Temperature Source Pulse Rate Pulse Rate from SpO2 Sensor 82 82 83 Respiratory Rate Respiratory Effort / Characteristics Respiratory Depth Blood Pressure Blood Pressure Mean Pulse Oximetry 98 99 99 Oxygen Delivery Method Sepsis Recent Fever Within 48 Hours Sepsis New/Unexplained Change in Mental Status Sepsis Action Taken by Nursing 01/03/22 02:29 01/03/22 02:30 01/03/22 02:31 Temperature Temperature Source Pulse Rate Pulse Rate from SpO2 Sensor 82 82 Respiratory Rate Respiratory Effort / Characteristics Respiratory Depth Blood Pressure 167/78 H Blood Pressure Mean 107 Pulse Oximetry 97 99 Oxygen Delivery Method Sepsis Recent Fever Within 48 Hours Sepsis New/Unexplained Change in Mental Status Sepsis Action Taken by Nursing Laboratory Data Result diagrams: 01/02/22 23:15 01/02/22 23:15 Lab Results 01/02/22 01/02/22 01/02/22 Range/Units 23:15 23:15 23:15 WBC 8.11 (4.8-10.8) K/uL RBC 3.61 L (4.2-5.4) M/uL Hgb 9.8 L (12.0-16.0) g/dL POC Hgb (12.0-16.0) g/dl Hct 31.5 L (37-47) % POC Hct (37-47) % MCV 87.3 (80-100) fL MCH 27.1 (25-34) pg MCHC 31.1 L (32-36) g/dL RDW Std Deviation 53.4 H (36.4-46.3) fL RDW Coeff of Alice 16.9 H (11.5-14.5) % Plt Count 290 (130-400) K/uL MPV 9.5 (7.4-10.4) fL Immature Gran % (Auto) 0.4 % Neut % (Auto) 70.8 % Lymph % (Auto) 18.1 % [place] % (Auto) 9.2 % Eos % (Auto) 1.4 % Baso % (Auto) 0.1 % Neut # (Auto) 5.74 (1.4-6.5) K/uL Lymph # (Auto) 1.47 (1.2-3.4) K/uL [place] # (Auto) 0.75 H (0.11-0.59) K/uL Eos # (Auto) 0.11 (0-0.5) K/uL Baso # (Auto) 0.01 (0-0.2) K/uL Immature Gran # (Auto) 0.03 H (0.00-0.02) K/uL PT 22.2 H (9.0-12.0) Seconds INR 2.2 H (0.9-1.1) APTT 29.7 (21.0-31.0) Seconds PTT Ratio 1.1 POC Sodium (135-144) mmol/L Sodium 138 (136-145) mmol/L POC Potassium (3.3-5.0) mmol/L Potassium 4.3 (3.5-5.1) mmol/L POC Chloride (101-112) mmol/L Chloride 105 (98-107) mmol/L Carbon Dioxide 23 (21-32) mmol/L POC Total CO2 (24-31) mmol/L Anion Gap 10 (3-11) POC Anion Gap (16-25) mmol/L POC BUN (7-18) mg/dl BUN 36 H (6-23) mg/dl Creatinine 3.09 H (0.6-1.2) mg/dl POC Creatinine (0.6-1.3) mg/dl Est Cr Clr Drug Dosing Not Reportable Est GFR ( Amer) 15.9 ml/min Est GFR (Non-Af Amer) 13.7 ml/min BUN/Creatinine Ratio 11.7 (10-20) Glucose 165 H (70-99(Fasting)) mg/dl POC Glucose (other) (70-99) mg/dl Calcium 9.3 (8.5-10.1) mg/dl POC Ioniz Calcium Jeovany (1.12-1.32) mmol/l Magnesium 2.1 (1.7-2.4) mg/dl Total Bilirubin 0.4 (0.2-1.0) mg/dl AST 19 (13-39) U/L ALT 13 (7-52) U/L Alkaline Phosphatase 44 (34-104) U/L Troponin I High Sens 10.5 (0-14) pg/ml Total Protein 7.6 (6.0-8.3) gm/dl Albumin 4.3 (3.4-5.0) gm/dl Globulin 3.3 (2.5-4.0) gm/dl Albumin/Globulin Ratio 1.3 (0.9-2) SARS-CoV-2, RNA, NAAT (NEGATIVE) Blood Type Antibody Screen 01/02/22 01/02/22 01/03/22 Range/Units 23:24 23:29 00:04 WBC (4.8-10.8) K/uL RBC (4.2-5.4) M/uL Hgb (12.0-16.0) g/dL POC Hgb 10.5 L (12.0-16.0) g/dl Hct (37-47) % POC Hct 31 L (37-47) % MCV (80-100) fL MCH (25-34) pg MCHC (32-36) g/dL RDW Std Deviation (36.4-46.3) fL RDW Coeff of Alice (11.5-14.5) % Plt Count (130-400) K/uL MPV (7.4-10.4) fL Immature Gran % (Auto) % Neut % (Auto) % Lymph % (Auto) % [place] % (Auto) % Eos % (Auto) % Baso % (Auto) % Neut # (Auto) (1.4-6.5) K/uL Lymph # (Auto) (1.2-3.4) K/uL [place] # (Auto) (0.11-0.59) K/uL Eos # (Auto) (0-0.5) K/uL Baso # (Auto) (0-0.2) K/uL Immature Gran # (Auto) (0.00-0.02) K/uL PT (9.0-12.0) Seconds INR (0.9-1.1) APTT (21.0-31.0) Seconds PTT Ratio POC Sodium 139 (135-144) mmol/L Sodium (136-145) mmol/L POC Potassium 4.3 (3.3-5.0) mmol/L Potassium (3.5-5.1) mmol/L POC Chloride 107 (101-112) mmol/L Chloride (98-107) mmol/L Carbon Dioxide (21-32) mmol/L POC Total CO2 23 L (24-31) mmol/L Anion Gap (3-11) POC Anion Gap 14.0 L (16-25) mmol/L POC BUN 35 H (7-18) mg/dl BUN (6-23) mg/dl Creatinine (0.6-1.2) mg/dl POC Creatinine 3.2 H (0.6-1.3) mg/dl Est Cr Clr Drug Dosing Est GFR ( Amer) ml/min Est GFR (Non-Af Amer) ml/min BUN/Creatinine Ratio (10-20) Glucose (70-99(Fasting)) mg/dl POC Glucose (other) 172 H (70-99) mg/dl Calcium (8.5-10.1) mg/dl POC Ioniz Calcium [place] 1.20 (1.12-1.32) mmol/l Magnesium (1.7-2.4) mg/dl Total Bilirubin (0.2-1.0) mg/dl AST (13-39) U/L ALT (7-52) U/L Alkaline Phosphatase (34-104) U/L Troponin I High Sens (0-14) pg/ml Total Protein (6.0-8.3) gm/dl Albumin (3.4-5.0) gm/dl Globulin (2.5-4.0) gm/dl Albumin/Globulin Ratio (0.9-2) SARS-CoV-2, RNA, NAAT NEGATIVE (NEGATIVE) Blood Type A Positive Antibody Screen NEGATIVE 01/03/22 Range/Units 03:00 WBC (4.8-10.8) K/uL RBC (4.2-5.4) M/uL Hgb (12.0-16.0) g/dL POC Hgb (12.0-16.0) g/dl Hct (37-47) % POC Hct (37-47) % MCV (80-100) fL MCH (25-34) pg MCHC (32-36) g/dL RDW Std Deviation (36.4-46.3) fL RDW Coeff of Alice (11.5-14.5) % Plt Count (130-400) K/uL MPV (7.4-10.4) fL Immature Gran % (Auto) % Neut % (Auto) % Lymph % (Auto) % [place] % (Auto) % Eos % (Auto) % Baso % (Auto) % Neut # (Auto) (1.4-6.5) K/uL Lymph # (Auto) (1.2-3.4) K/uL [place] # (Auto) (0.11-0.59) K/uL Eos # (Auto) (0-0.5) K/uL Baso # (Auto) (0-0.2) K/uL Immature Gran # (Auto) (0.00-0.02) K/uL PT (9.0-12.0) Seconds INR (0.9-1.1) APTT (21.0-31.0) Seconds PTT Ratio POC Sodium (135-144) mmol/L Sodium (136-145) mmol/L POC Potassium (3.3-5.0) mmol/L Potassium (3.5-5.1) mmol/L POC Chloride (101-112) mmol/L Chloride (98-107) mmol/L Carbon Dioxide (21-32) mmol/L POC Total CO2 (24-31) mmol/L Anion Gap (3-11) POC Anion Gap (16-25) mmol/L POC BUN (7-18) mg/dl BUN (6-23) mg/dl Creatinine (0.6-1.2) mg/dl POC Creatinine (0.6-1.3) mg/dl Est Cr Clr Drug Dosing Est GFR ( Amer) ml/min Est GFR (Non-Af Amer) ml/min BUN/Creatinine Ratio (10-20) Glucose (70-99(Fasting)) mg/dl POC Glucose (other) (70-99) mg/dl Calcium (8.5-10.1) mg/dl POC Ioniz Calcium [place] (1.12-1.32) mmol/l Magnesium (1.7-2.4) mg/dl Total Bilirubin (0.2-1.0) mg/dl AST (13-39) U/L ALT (7-52) U/L Alkaline Phosphatase (34-104) U/L Troponin I High Sens 14.0 (0-14) pg/ml Total Protein (6.0-8.3) gm/dl Albumin (3.4-5.0) gm/dl Globulin (2.5-4.0) gm/dl Albumin/Globulin Ratio (0.9-2) SARS-CoV-2, RNA, NAAT (NEGATIVE) Blood Type Antibody Screen Administered Medications Aspirin (Aspirin 81 Mg Ectab) 81 mg PO DAILY NATHALIA Stop: 02/02/22 08:59 Last Admin: 01/03/22 10:29 Dose: 81 mg Documented by: [id number] Fluticasone Propionate (Fluticasone Propionate Na Spr 16 Gm Btl) 1 sprays NA DAILY NATHALIA Stop: 02/02/22 08:59 Last Admin: 01/03/22 10:28 Dose: 1 sprays Documented by: [id number] Fluticasone/Vilanterol (Fluticasone/Vilanterol 100/25mcg 14 Puffs/Inhaler) 1 puffs INH DAILY NATHALIA Stop: 02/02/22 08:59 Last Admin: 01/03/22 10:29 Dose: 1 puffs Documented by: [id number] Famotidine 20 mg/ Syringe 5 mls @ 2.5 mls/min IV DAILY NATHALIA Stop: 02/02/22 08:59 Last Admin: 01/03/22 10:29 Dose: 2.5 mls/min Documented by: [id number] Meclizine HCl (Meclizine 12.5 Mg Tab) 12.5 mg PO TID NATHALIA Stop: 02/02/22 08:59 Last Admin: 01/03/22 14:53 Dose: 12.5 mg Documented by: [id number] Admin: 01/03/22 10:30 Dose: 12.5 mg Documented by: [id number] Ondansetron HCl (Ondansetron Inj 2 Mg/Ml 2 Ml Vial) 4 mg IV Q6H PRN PRN Reason: Nausea Stop: 02/02/22 03:57 Last Admin: 01/03/22 14:54 Dose: 4 mg Documented by: [id number] Discontinued Medications Sodium Chloride (Nss 1000ml) 1,000 mls @ 80 mls/hr IV .[id number] NATHALIA Stop: 01/03/22 16:27 Last Infusion: 01/03/22 16:34 Dose: 0 mls/hr Documented by: [id number] Admin: 01/03/22 04:56 Dose: 80 mls/hr Documented by: [id number] Ondansetron HCl (Ondansetron Inj 2 Mg/Ml 2 Ml Vial) 4 mg IV NOW STA Stop: 01/02/22 23:15 Last Admin: 01/02/22 23:37 Dose: 4 mg Documented by: [id number] Ondansetron HCl (Ondansetron Inj 2 Mg/Ml 2 Ml Vial) Confirm Administered Dose 4 mg .ROUTE .STK-MED ONE Stop: 01/03/22 02:53 Last Admin: 01/03/22 03:00 Dose: 4 mg Documented by: [id number] Imaging Data Radiologist's Impression: Head CT 01/02/22 23:12 CT head/brain wo con CLINICAL HISTORY: Stroke Like Symptoms . Nausea, vomiting, weakness and confusion COMPARISON STUDY: No previous studies for comparison. CT DOSE: 537.48 mGy.cm TECHNIQUE: Standard CT of the Brain was performed without IV contrast. A dose lowering technique was utilized adhering to the principles of ALARA. FINDINGS: Extraaxial space: There is no evidence for subdural hematoma. There are no extra-axial fluid collections. Ventricles and cisterns: The ventricles are mildly dilated bilaterally. There is no evidence for midline shift or mass effect. Parenchyma: There is no subarachnoid or intraparenchymal hemorrhage. There is no evidence for an acute infarct or cerebral edema. There are small vessel There are no gross mass lesions. Osseous structures: There is no evidence for an acute fracture. The visualized paranasal sinuses are clear. There is asymmetric mucosal thickening and mastoid air cells on the left when compared to the right. Soft tissues: There is no evidence for focal soft tissue swelling. IMPRESSION: 1. No acute intracerebral pathology. 2. Cerebral cortical atrophy and remote small vessel disease. 3. Left mastoiditis. ACT 112: Negative or not required by law. Electronically signed by: Sinan Arriola M.D. 01/03/2022 8:40 AM Discharge Plan Visit Data Chief Complaint: Vomiting Stated Complaint: NAUSEA/VOMITING Discharge Problem: Weakness, Nausea & vomiting Patient Disposition: Admitted As Inpatient Discharge Instructions Interventions: ED Discharge Assessment Last Done: 01/03/22 04:09 Discharge Problem: Nausea & vomiting Qualifiers: Vomiting type: unspecified Qualified Code(s): R11.2 - Nausea with vomiting, u nspecified
[2022-01-03] MEDS ORDERED: LORazepam 0.5 MG TAB PO PRN (07:57)
[2022-01-03 08:05] LABS: INR 2.1 (0.9-1.1); Prothrombin Time 21.5 Seconds (9.0-12.0)
[2022-01-03 08:15] LABS: Chol HDL Ratio 4.3 (0-5)
[2022-01-03 08:19] LABS: Appearance Urine Clear (Clear); Bacteria Urine Automated Negative (Negative); Bilirubin Urine Negative (Negative); Blood Urine Negative (Negative); Cast Urine Automated 0 /lpf (0-5); Color Urine Yellow; Epithelial Cell Urine Auto 0-5 /lpf (0-5); Glucose Urine UA 2+ (Negative); Ketones Urine Negative (Negative); Leukocyte Esterase Urine Negative (Negative); Nitrite Urine Negative (Negative); RBC Urine Automated 0-4 /hpf (0-4); Specific Gravity Urine 1.011 (1.000-1.030); Urobilinogen Urine Negative (Negative); WBC Urine Automated 0 /hpf (0-5)
[2022-01-03 08:22] LABS: Protein Urine Trace (Negative)
--- NOTE | 2022-01-03 08:42 | CT Scan Report ---
CT head/brain wo con CLINICAL HISTORY: Stroke Like Symptoms . Nausea, vomiting, weakness and confusion COMPARISON STUDY: No previous studies for comparison. CT DOSE: 537.48 mGy.cm TECHNIQUE: Standard CT of the Brain was performed without IV contrast. A dose lowering technique was utilized adhering to the principles of ALARA. FINDINGS: Extraaxial space: There is no evidence for subdural hematoma. There are no extra-axial fluid collecti ons. Ventricles and cisterns: The ventricles are mildly dilated bilaterally. There is no evidence for midl ine shift or mass effect. Parenchyma: There is no subarachnoid or intraparenchymal hemorrhage. There is no evidence for an acut e infarct or cerebral edema. There are small vessel There are no gross mass lesions. Osseous structures: There is no evidence for an acute fracture. The visualized paranasal sinuses are clear. There is asymmetric mucosal thickening and mastoid air cells on the left when compared to the right. Soft tissues: There is no evidence for focal soft tissue swelling. IMPRESSION: 1. No acute intracerebral pathology. 2. Cerebral cortical atrophy and remote small vessel disease. 3. Left mastoiditis. ACT 112: Negative or not required by law. Electronically signed by: Sinan Arriola M.D. 01/03/2022 8:40 AM
[2022-01-03] MEDS: FLUTICASONE PROPIONATE NA SPR 16 GM BTL SCH (10:28)
[2022-01-03] MEDS: ASPIRIN 81 MG ECTAB PO SCH (10:29)
[2022-01-03] MEDS: FAMOTIDINE 20 MG in SYRINGE 3 ML IV SCH (10:29)
[2022-01-03] MEDS: FLUTICASONE/VILANTEROL 100/25MCG 14 PUFFS/INHALER INH SCH (10:29)
[2022-01-03] MEDS: MECLIZINE 12.5 MG TAB PO SCH ×3 (10:30→20:08)
--- NOTE | 2022-01-03 12:03 | XCELERA ---
[id number]
--- NOTE | 2022-01-03 12:27 | Electrocardiogram Report ---
Test Reason : Blood Pressure : / mmHG Vent. Rate : 088 BPM Atrial Rate : 088 BPM P-R Int : 180 ms QRS Dur : 080 ms QT Int : 398 ms P-R-T Axes : 077 067 070 degrees QTc Int : 481 ms Normal sinus rhythm Normal ECG When compared with ECG of 16-JUN-2019 09:12, Premature atrial complexes are no longer Present Confirmed by Mitul Barry ([id number]) on 01/03/2022 12:27:02 PM Referred By: REFERRED SELF Confirmed By:Aram Barry
--- NOTE | 2022-01-03 18:57 | Hospitalist Progress Note ---
Date of Service January 03, 2022 Assessment & Plan (1) Acute hearing loss of right ear: Plan: Tinnitus, hearing loss, dizziness, prolific nausea/emesis - in the setting of negative MRI brain and negative MRA head/neck - point towards inner ear source for her presentation. She reports having had a URI for 3 days thus this could be a viral vestibular neuronitis. Will check a COVID/flu/RSV PCR. Alternatively, given the significant hearing loss, this could be a Meniere's attack. Placed on antivert 12.5mg TID scheduled. Zofran prn. If symptoms are refractory could use ativan prn, scopalamine patch, etc. Consider course of PO steroids. Will ask PT to perform vestibular evaluation. I will ask neurology to consult formally for their opinion. Will need ENT f/u post-discharge. (2) Pulsatile tinnitus of both ears: Plan: See above #1 (3) Dizziness: Plan: See #1 above (4) URI (upper respiratory infection): Plan: x 3 days symptomatic care recheck COVID/flu/RSV PCR (5) Intractable nausea and vomiting: Plan: See #1 above zofran prn scheduled meclizine TID added pepcid IV once daily (6) Generalized weakness: Plan: multifactorial - URI, N/V, etc MRI brain negative MRAs head/neck negative Echo findings noted (7) Asthma-COPD overlap syndrome: Plan: no evidence of exacerbation Cont home inhalers (8) Stage 5 chronic kidney disease not on chronic dialysis: Plan: Creatinine 3.09 upon admission, with range 3.06-3.79 CrCl at baseline about 15 Has LUE AV fistula if HD is ever needed in future Repeat BMP am for stability (9) Bilateral pulmonary embolism: Plan: Bilateral pulm emboli/history of DVT- Resume coumadin Daily INR INR today therapeutic (10) Hypertension: Plan: since acute CVA has been ruled out can resume amlodipine in am Plan: DVT proph - coumadin I extensively updated the pt's son by phone this evening Admission and Anticipated Discharge Date Admission Date: January 03, 2022 Subjective tele since admission wnl saw patient twice today during first visit she had just sat up in bed and was preparing to transfer to the wheelchair (to go for her MRI brain) this led to prolific nausea and emesis she denied vertigo but did endorse "feeling dizzy" with laying back down her nausea/emesis was better 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 and chronic hearing loss from the left ear HOWEVER, over the last 2-3 days, she has had significant hearing impairment in the right ear she also reports b/l, severe tinnitus - but worse on right denies diplopia denies visual field cuts denies ataxia denies focal motor weakness reports having a cough with nasal congestion for 2-3 days I ordered meclizine with zofran after this visit a few hours later she was able to complete the MRI brain & MRA head/neck she had some mild nausea with 1 episode of vomiting during the scans when I re-evaluated her after the imaging she was resting comfortably in bed she was tired appearing but comfortable she did say overall things were a bit better Review of Systems Review of Systems: gen - no fevers, but weak and her appetite has been off for a few days cv - no chest pain, no orthopnea pulm - no dyspnea GI - no abd pain but N/V neuro - denies vertigo but has had severe dizziness Physical Exam Physical Exam: first visit during AM rounds - gen - very uncomfortable, actively vomiting eyes - EOMI, mild horizontal nystagmus, PERRL ears - significant hearing impairment b/l but much worse on right mouth - MM dry neck - no JVD heart - RRR, s1 s2 lungs - CTA b/l abd - soft NT ND BS+ ext - no edema, pulses 2+ b/l neuro - strength 5/5 x 4 exts vascular - AV fistual, LUE - with thrill/bruit Results & Data Results & Data ([facility]) Vital Signs (Past 12 Hours) Vital Signs Temp Pulse Pulse Resp BP Pulse Ox 01/03/22 15:55 83 01/03/22 15:32 36.6 C 79 18 161/72 H 98 01/03/22 10:51 36.6 C 84 18 156/79 H 97 01/03/22 08:00 82 01/03/22 07:50 36.6 C 94 H 18 163/78 H 99 Laboratory Results Laboratory Results - last 24 hr 01/02/22 01/02/22 01/02/22 23:15 23:15 23:15 WBC 8.11 RBC 3.61 L Hgb 9.8 L POC Hgb Hct 31.5 L POC Hct MCV 87.3 MCH 27.1 MCHC 31.1 L RDW Std Deviation 53.4 H RDW Coeff of Alice 16.9 H Plt Count 290 MPV 9.5 Immature Gran % (Auto) 0.4 Neut % (Auto) 70.8 Lymph % (Auto) 18.1 Mineral % (Auto) 9.2 Eos % (Auto) 1.4 Baso % (Auto) 0.1 Neut # (Auto) 5.74 Lymph # (Auto) 1.47 Mineral # (Auto) 0.75 H Eos # (Auto) 0.11 Baso # (Auto) 0.01 Immature Gran # (Auto) 0.03 H PT 22.2 H INR 2.2 H APTT 29.7 PTT Ratio 1.1 POC Sodium Sodium 138 POC Potassium Potassium 4.3 POC Chloride Chloride 105 Carbon Dioxide 23 POC Total CO2 Anion Gap 10 POC Anion Gap POC BUN BUN 36 H Creatinine 3.09 H POC Creatinine Est Cr Clr Drug Dosing Not Reportable Est GFR ( Amer) 15.9 Est GFR (Non-Af Amer) 13.7 BUN/Creatinine Ratio 11.7 Glucose 165 H POC Glucose (other) Estimat Average Glucose Hemoglobin A1c Calcium 9.3 POC Ioniz Calcium Jeovany Magnesium 2.1 Total Bilirubin 0.4 AST 19 ALT 13 Alkaline Phosphatase 44 Troponin I High Sens 10.5 Total Protein 7.6 Albumin 4.3 Globulin 3.3 Albumin/Globulin Ratio 1.3 Triglycerides Cholesterol LDL Cholesterol, Calc VLDL Cholesterol, Calc HDL Cholesterol Cholesterol/HDL Ratio Urine Color Urine Appearance Urine pH Ur Specific [place] Urine Protein Urine Glucose (UA) Urine Ketones Urine Blood Urine Nitrite Urine Bilirubin Urine Urobilinogen Ur Leukocyte Esterase Urine WBC (Auto) Urine RBC (Auto) U Hyaline Cast (Auto) U Epithel Cells (Auto) Urine Bacteria (Auto) SARS-CoV-2, RNA, NAAT Blood Type Antibody Screen 01/02/22 01/02/22 01/03/22 23:24 23:29 00:04 WBC RBC Hgb POC Hgb 10.5 L Hct POC Hct 31 L MCV MCH MCHC RDW Std Deviation RDW Coeff of Alice Plt Count MPV Immature Gran % (Auto) Neut % (Auto) Lymph % (Auto) Mineral % (Auto) Eos % (Auto) Baso % (Auto) Neut # (Auto) Lymph # (Auto) Mineral # (Auto) Eos # (Auto) Baso # (Auto) Immature Gran # (Auto) PT INR APTT PTT Ratio POC Sodium 139 Sodium POC Potassium 4.3 Potassium POC Chloride 107 Chloride Carbon Dioxide POC Total CO2 23 L Anion Gap POC Anion Gap 14.0 L POC BUN 35 H BUN Creatinine POC Creatinine 3.2 H Est Cr Clr Drug Dosing Est GFR ( Amer) Est GFR (Non-Af Amer) BUN/Creatinine Ratio Glucose POC Glucose (other) 172 H Estimat Average Glucose Hemoglobin A1c Calcium POC Ioniz Calcium Jeovany 1.20 Magnesium Total Bilirubin AST ALT Alkaline Phosphatase Troponin I High Sens Total Protein Albumin Globulin Albumin/Globulin Ratio Triglycerides Cholesterol LDL Cholesterol, Calc VLDL Cholesterol, Calc HDL Cholesterol Cholesterol/HDL Ratio Urine Color Urine Appearance Urine pH Ur Specific [place] Urine Protein Urine Glucose (UA) Urine Ketones Urine Blood Urine Nitrite Urine Bilirubin Urine Urobilinogen Ur Leukocyte Esterase Urine WBC (Auto) Urine RBC (Auto) U Hyaline Cast (Auto) U Epithel Cells (Auto) Urine Bacteria (Auto) SARS-CoV-2, RNA, NAAT NEGATIVE Blood Type A Positive Antibody Screen NEGATIVE 01/03/22 01/03/22 01/03/22 03:00 07:12 07:12 WBC RBC Hgb POC Hgb Hct POC Hct MCV MCH MCHC RDW Std Deviation RDW Coeff of Alice Plt Count MPV Immature Gran % (Auto) Neut % (Auto) Lymph % (Auto) Mineral % (Auto) Eos % (Auto) Baso % (Auto) Neut # (Auto) Lymph # (Auto) Mineral # (Auto) Eos # (Auto) Baso # (Auto) Immature Gran # (Auto) PT 21.5 H INR 2.1 H APTT PTT Ratio POC Sodium Sodium POC Potassium Potassium POC Chloride Chloride Carbon Dioxide POC Total CO2 Anion Gap POC Anion Gap POC BUN BUN Creatinine POC Creatinine Est Cr Clr Drug Dosing Est GFR ( Amer) Est GFR (Non-Af Amer) BUN/Creatinine Ratio Glucose POC Glucose (other) Estimat Average Glucose Pending Hemoglobin A1c Pending Calcium POC Ioniz Calcium Jeovany Magnesium Total Bilirubin AST ALT Alkaline Phosphatase Troponin I High Sens 14.0 Total Protein Albumin Globulin Albumin/Globulin Ratio Triglycerides Cholesterol LDL Cholesterol, Calc VLDL Cholesterol, Calc HDL Cholesterol Cholesterol/HDL Ratio Urine Color Urine Appearance Urine pH Ur Specific [place] Urine Protein Urine Glucose (UA) Urine Ketones Urine Blood Urine Nitrite Urine Bilirubin Urine Urobilinogen Ur Leukocyte Esterase Urine WBC (Auto) Urine RBC (Auto) U Hyaline Cast (Auto) U Epithel Cells (Auto) Urine Bacteria (Auto) SARS-CoV-2, RNA, NAAT Blood Type Antibody Screen 01/03/22 01/03/22 01/03/22 07:12 11:32 17:36 WBC RBC Hgb POC Hgb Hct POC Hct MCV MCH MCHC RDW Std Deviation RDW Coeff of Alice Plt Count MPV Immature Gran % (Auto) Neut % (Auto) Lymph % (Auto) Mineral % (Auto) Eos % (Auto) Baso % (Auto) Neut # (Auto) Lymph # (Auto) Mineral # (Auto) Eos # (Auto) Baso # (Auto) Immature Gran # (Auto) PT INR APTT PTT Ratio POC Sodium Sodium POC Potassium Potassium POC Chloride Chloride Carbon Dioxide POC Total CO2 Anion Gap POC Anion Gap POC BUN BUN Creatinine POC Creatinine Est Cr Clr Drug Dosing Est GFR ( Amer) Est GFR (Non-Af Amer) BUN/Creatinine Ratio Glucose POC Glucose (other) Estimat Average Glucose Hemoglobin A1c Calcium POC Ioniz Calcium Jeovany Magnesium Total Bilirubin AST ALT Alkaline Phosphatase Troponin I High Sens 17.8 H 19.3 H Total Protein Albumin Globulin Albumin/Globulin Ratio Triglycerides 65 Cholesterol 232 H LDL Cholesterol, Calc 165 VLDL Cholesterol, Calc 13 HDL Cholesterol 54 Cholesterol/HDL Ratio 4.3 Urine Color Urine Appearance Urine pH Ur Specific [place] Urine Protein Urine Glucose (UA) Urine Ketones Urine Blood Urine Nitrite Urine Bilirubin Urine Urobilinogen Ur Leukocyte Esterase Urine WBC (Auto) Urine RBC (Auto) U Hyaline Cast (Auto) U Epithel Cells (Auto) Urine Bacteria (Auto) SARS-CoV-2, RNA, NAAT Blood Type Antibody Screen 01/03/22 Unknown WBC RBC Hgb POC Hgb Hct POC Hct MCV MCH MCHC RDW Std Deviation RDW Coeff of Alice Plt Count MPV Immature Gran % (Auto) Neut % (Auto) Lymph % (Auto) Mineral % (Auto) Eos % (Auto) Baso % (Auto) Neut # (Auto) Lymph # (Auto) Mineral # (Auto) Eos # (Auto) Baso # (Auto) Immature Gran # (Auto) PT INR APTT PTT Ratio POC Sodium Sodium POC Potassium Potassium POC Chloride Chloride Carbon Dioxide POC Total CO2 Anion Gap POC Anion Gap POC BUN BUN Creatinine POC Creatinine Est Cr Clr Drug Dosing Est GFR ( Amer) Est GFR (Non-Af Amer) BUN/Creatinine Ratio Glucose POC Glucose (other) Estimat Average Glucose Hemoglobin A1c Calcium POC Ioniz Calcium Jeovany Magnesium Total Bilirubin AST ALT Alkaline Phosphatase Troponin I High Sens Total Protein Albumin Globulin Albumin/Globulin Ratio Triglycerides Cholesterol LDL Cholesterol, Calc VLDL Cholesterol, Calc HDL Cholesterol Cholesterol/HDL Ratio Urine Color Yellow Urine Appearance Clear Urine pH 8.0 H Ur Specific [place] 1.011 Urine Protein Trace H Urine Glucose (UA) 2+ H Urine Ketones Negative Urine Blood Negative Urine Nitrite Negative Urine Bilirubin Negative Urine Urobilinogen Negative Ur Leukocyte Esterase Negative Urine WBC (Auto) 0 Urine RBC (Auto) 0-4 U Hyaline Cast (Auto) 0 U Epithel Cells (Auto) 0-5 Urine Bacteria (Auto) Negative SARS-CoV-2, RNA, NAAT Blood Type Antibody Screen PG Care Time/CCT Total # of Minutes Spent Total Time Spent with Patient: Total time spent is greater than 50% in coordination of care (as documented) at patient's floor/unit and/or counseling patient: Coding Level of Care Code 16781 Subseq Obs Care Lvl 3 Diagnoses Intractable nausea and vomiting R11.2 Generalized weakness R53.1 Asthma-COPD overlap syndrome J44.9 Stage 5 chronic kidney disease not on chronic dialysis N18.5 Bilateral pulmonary embolism I26.99 Pulsatile tinnitus of both ears H93.A3 Hypertension I10 Acute hearing loss of right ear H91.91 Dizziness R42 URI (upper respiratory infection) J06.9
--- NOTE | 2022-01-03 19:08 | Magnetic Resonance Report ---
MR angio head wo con CLINICAL HISTORY: TIA, general weakness, N/V. COMPARISON: None. TECHNIQUE: 3-D time of flight MR angiographic images of the brain were also obtained without IV contr ast. FINDINGS: Posterior circulation: Both vertebral arteries, the basilar artery, and both posterior cerebral arter ies are patent. Anterior circulation: Both internal carotid arteries are patent. The anterior cerebral and middle cer ebral arteries are patent bilaterally. There is mild atherosclerotic disease present involving the A1 segments bilaterally. No arterial occlusion, hemodynamically significant stenosis, aneurysm, or vascular malformation is se en. IMPRESSION: Normal MRA of the cerebral circulation for the patient's age. ACT 112: Negative or not required by law. Electronically signed by: Sinan Arriola M.D. 01/03/2022 7:06 PM
--- NOTE | 2022-01-03 19:08 | Magnetic Resonance Report ---
MR angio neck wo con CLINICAL HISTORY: TIA, general weakness, N/V. COMPARISON: None. TECHNIQUE: 3-D time of flight MR angiographic images of the neck were obtained without IV contrast. FINDINGS: The carotid arteries are normal in course and caliber bilaterally. There is no evidence for stenosis. The vertebral arteries are normal in course and caliber bilaterally. There is no evidence for stenosi s or gross dissection. IMPRESSION: Normal MRA of the carotid arteries for the patient's age. ACT 112: Negative or not required by law. Electronically signed by: Sinan Arriola M.D. 01/03/2022 7:05 PM
--- NOTE | 2022-01-03 19:09 | Magnetic Resonance Report ---
MR brain wo con CLINICAL HISTORY: TIA, general weakness, N/V. COMPARISON STUDY: No previous studies for comparison. TECHNIQUE: Multiplanar multisequence images of the Brain were performed without IV contrast. Diffusi on weighted imaging and ADC mapping was also performed. FINDINGS: Extra-axial space: There is no evidence for a subdural hematoma, There are no extra-axial fluid valeria ections. Ventricles and cisterns: The ventricles are mildly dilated bilaterally. There is no evidence for mid line shift or mass effect. Parenchyma: There is no evidence for an acute hemorrhage or infarct. No acute diffusion abnormalities are noted on diffusion weighted imaging or ADC mapping. There is normal marcial-white differentiation. There is mild cerebral cortical atrophy present. There is bright signal seen on FLAIR weighted seque nces within the centrum semiovale and periventricular white matter characteristic of remote small ves star disease. The sulci and gyri appear normal without effacement. The midline structures are unremark able. The posterior fossa structures appear normal. There is no evidence for mass lesion. Osseous structures: The paranasal sinuses are well aerated. The mastoid air cells are well aerated. Soft tissues: No focal soft tissue abnormalities are identified. IMPRESSION: 1. No acute intracranial abnormalities. 2. Cerebral cortical atrophy and remote small vessel disease. ACT 112: Negative or not required by law. Electronically signed by: Sinan Arriola M.D. 01/03/2022 7:08 PM
[2022-01-03] MEDS: PARoxetine HCL 20 MG TAB PO SCH (20:08)
[2022-01-03 20:40] LABS: Influenza A virus by PCR Negative (Neg); Influenza B virus by PCR Negative (Neg); RSV by PCR Negative (Neg); SARS CoV2 RNA(COVID-19) InHosp NEGATIVE (Negative)
[2022-01-03] MEDS: WARFARIN SOD 3 MG TAB PO SCH (21:47)
[2022-01-04 07:27] LABS: INR 2.1 (0.9-1.1); Prothrombin Time 21.4 Seconds (9.0-12.0)
[2022-01-04 07:31] LABS: Estimated Average Glucose 123 mg/dl; Hemoglobin A1C 5.9 % (4.5-5.6)
[2022-01-04 07:37] LABS: Albumin Level 3.9 gm/dl (3.4-5.0); BUN Creatinine Ratio 9.3 (10-20); Calcium 8.9 mg/dl (8.5-10.1); Creatinine Clr Calc Pharmacy 15.7 ml/min; Est GFR (African American) 16.4 ml/min; Est GFR (Non-African American) 14.1 ml/min; Magnesium 1.9 mg/dl (1.7-2.4); Phosphorus 3.1 mg/dl (2.5-4.9); Potassium 4.2 mmol/L (3.5-5.1)
[2022-01-04 07:42] LABS: Basophils # (auto) 0.01 K/uL (0-0.2); Basophils % (auto) 0.1 %; Eosinophils # (auto) 0.06 K/uL (0-0.5); Eosinophils % (auto) 0.8 %; Hematocrit (blood only) 32.2 % (37-47); Hemoglobin 9.7 g/dL (12.0-16.0); Immature Granulocytes # (auto) 0.02 K/uL (0.00-0.02); Immature Granulocytes % (auto) 0.3 %; Lymphocytes # (auto) 0.91 K/uL (1.2-3.4); Lymphocytes % (auto) 11.5 %; Mean Corpuscular Hemoglobin 26.7 pg (25-34); Mean Corpuscular Hgb Conc 30.1 g/dL (32-36); Mean Corpuscular Volume 88.7 fL (80-100); Mean Platelet Volume 9.2 fL (7.4-10.4); Monocytes # (auto) 0.79 K/uL (0.11-0.59); Neutrophils # (auto) 6.11 K/uL (1.4-6.5); Neutrophils % (auto) 77.3 %; Platelet Count 293 K/uL (130-400); RDW Coefficient of Variation 16.9 % (11.5-14.5); RDW Standard Deviation 54.8 fL (36.4-46.3); Red Blood Count 3.63 M/uL (4.2-5.4)
[2022-01-04] MEDS: FLUTICASONE/VILANTEROL 100/25MCG 14 PUFFS/INHALER INH SCH (08:50)
[2022-01-04] MEDS: MECLIZINE 12.5 MG TAB PO SCH ×3 (08:50→20:23)
[2022-01-04] MEDS: ASPIRIN 81 MG ECTAB PO SCH (08:51)
[2022-01-04] MEDS: FAMOTIDINE 20 MG in SYRINGE 3 ML IV SCH (08:51)
[2022-01-04] MEDS: FLUTICASONE PROPIONATE NA SPR 16 GM BTL SCH (08:51)
[2022-01-04] MEDS: amLODIPine BESYLATE 5 MG TAB PO SCH (08:51)
--- NOTE | 2022-01-04 09:36 | Neurology Consultation ---
Date of Consultation January 04, 2022 Assessment & Plan (1) Dizziness: (2) Acute hearing loss of right ear: (3) Nausea & vomiting: (4) Pulsatile tinnitus of both ears: Relatively abrupt onset right-sided hearing loss with associated nausea, emesis, and dizziness, occurring in the context of profound chronic hearing loss to the left ear. 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 No associated aural fullness or pain with either ear. No other specific or focal neurologic signs or symptoms. No evidence of acute or subacute stroke on MRI. No significant vascular lesion on MR angiography of the head and neck. I agree the patient's symptoms are probably related to acute inner ear pathology on the right, occurring in the context of chronic hearing loss on the left. Vestibular neuronitis certainly possible. Mnire's disease not excluded. Patient will need an ENT evaluation and audiogram. Consider treatment with corticosteroids for acute vestibular neuronitis with associated hearing loss to the right ear. Would ask ENT for an opinion, however. No further neurologic recommendations. History of Present Illness Reason for Consultation: Mnire's disease? Vestibular neuronitis? Requesting Physician: Alberto Sow MD Attending Physician: Alberto Sow History of Present Illness The patient is a 81-year-old female with a chief complaint of somewhat abrupt hearing loss to the right ear with associated dizziness, nausea, and vomiting. She has a history of chronic significant hearing loss to the left ear as well as chronic vision loss to the left eye. She denies any ear pain. She complains of ringing in the ear. Patient had another episode of significant dizziness, nausea and emesis during her hospitalization yesterday. No other associated symptoms such as diplopia, dysarthria, dysphagia, or focal weakness. She reports that her dizziness and nausea are improved this morning. A CT of the head completed January 02 have revealed atrophy, chronic small vessel ischemic disease, and left mastoiditis. A follow-up brain MRI was negative for acute or subacute stroke. There was evidence of chronic small vessel ischemic disease. There was increased T2 signal within the left mastoid as well. MR angiography of the head and neck unremarkable. Patient denies any left ear pain. Allergies Allergy/AdvReac Type Severity Reaction Status Date / Time Sulfa (Sulfonamide Allergy Mild HEADACHE, Verified 11/30/21 14:51 Antibiotics) VERTIGO nitrofurantoin AdvReac Severe renal Verified 11/30/21 14:51 insufficiency Home Medications Medication Instructions Recorded Confirmed Type lorazepam 0.5 mg tablet 0.5 mg PO TID PRN 06/12/19 01/02/22 History paroxetine HCl 20 mg tablet 20 mg PO HS 06/12/19 01/02/22 History aspirin 81 mg tablet,delayed 81 mg PO DAILY 07/02/19 01/02/22 History release (Adult Low Dose Aspirin) diphenhydramine 25 25 - 500 tab PO HS tab 02/21/20 01/02/22 History mg-acetaminophen 500 mg tablet calcitriol 0.5 mcg capsule 0.5 mcg PO UD #45 cap 12/29/20 01/02/22 Rx amlodipine 5 mg tablet 5 mg PO DAILY #90 tab 02/23/21 01/02/22 Rx warfarin 3 mg tablet See Rx Instructions PO UD #90 tab 05/12/21 01/02/22 Rx epoetin kole 40,000 unit/mL 40,000 unit SUBCUT .q2w 60 Days ml 07/15/21 01/02/22 Rx injection solution albuterol sulfate 90 mcg/actuation 2 puff INH Q6H PRN #18 gm 11/30/21 01/02/22 Rx aerosol inhaler budesonide-formoterol HFA 160 2 puff INH BID #10.2 gm 11/30/21 01/02/22 Rx mcg-4.5 mcg/actuation aerosol inhaler (Symbicort) fluticasone propionate 50 1 spray INTNAS DAILY #9.9 gm 11/30/21 01/02/22 Rx mcg/actuation nasal spray,suspension (Allergy Relief (fluticasone)) Patient History Medical History Amaurosis fugax of left eye Anxiety Blind left eye Fibula fracture History of broken leg Hx of blood clots Hx: UTI (urinary tract infection) Lung nodule Pulmonary emboli Recurrent UTI Secondary hyperparathyroidism of renal origin Stage 5 chronic kidney disease not on chronic dialysis Vitamin D deficiency Vitamin D deficiency Surgical History Hx of hysterectomy Family History Mother Blood clot in vein Father Myocardial infarction Sister Blood clot in vein Aunt Blood clot in vein Social History Smoking Status: Never smoker Second Hand Exposure: No; Do You Dip or Chew Tobacco: No; Tobacco Cessation Education Requested by Patient: No Hx Alcohol Use: No Hx Substance Use: No Preferred Language: Mongolian Communication Ability: Effective Delivery Sales Worker Required: No Beliefs That Will Affect Care: None marital status: / Current Living Situation: Alone current occupational status: retired Other Information That Helps Us Care for You: No Feels Safe at Home: Yes Safety Concerns: Feels Safe At This Time Dental Care, Regularly: Yes Seatbelt Use: always Sunscreen Use: Yes Assistive Devices: Hearing Aid - Bilateral Review of Systems Constitutional: no fever and no chills Eyes: as per Subjective / HPI and + blind spots; no diplopia Ear, Nose, Mouth, Throat: as per Subjective / HPI and + hearing loss; no dysphagia Respiratory: no cough and no dyspnea Cardiovascular: no chest pain and no palpitations Gastrointestinal: no constipation and no diarrhea/loose stools Genitourinary: no urinary urgency and no urinary incontinence Musculoskeletal: no muscle weakness and no muscle atrophy Integumentary: no rash and no lesions Neurologic: as per Subjective / HPI; no localized weakness, no loss of sensation, no headache(s) and no memory loss Psychiatric: no behavioral changes, no depression, no abnormal sleep pattern and no anxiety Hematologic / Lymphatic: no easy bruising and no lymphadenopathy Exam (Neuro) Constitutional: well developed and well nourished; no acute distress Eyes: PERRL, normal accommodation and EOM intact bilaterally; + abnormal vi sual field confrontation, no fundoscopic abnormality, no nystagmus and no papilledema Cardiovascular: Vessels: normal carotid upstroke; no carotid bruit Neurologic: Oriented to:: Person, Place and Time Memory: Short Term Intact and Remote Intact Attention: Span Intact and Concentration Intact Language: Naming Objects and Repeating Phrases Speech Fluency: negative Dysarthria Speech Aphasia: negative Aphasia Fund of Knowledge: Current Events, Past History and Vocabulary Cranial Nerves: Normal III, IV, (Pupils equal round reactive to light and accommodation, eye movements normal), V (Facial sensation intact), VII (There is no facial droop or weakness), IX, X (Palate elevates to midline), XI (Shoulder shrug intact) and XII (Tongue protrudes to midline); Abnorm II (No vision left eye. Visual field full for the right eye, acuity normal.) or VIII (Profound bilateral hearing loss, especially the left ear.) Motor Strength: Normal Lower Extremities and Normal Upper Extremities; negative Pronator Drift Motor Tone: Normal Lower Extremities and Normal Upper Extremities Muscle Bulk/Involuntary Movements: No Involuntary Movements; negative Muscle Atrophy Sensation: Light Touch Intact, Pa in/Temperature Intact, Vibration Intact and Proprioception Intact Coordination: Normal; negative Limited Balance, Dysdiadochokinesia, Finger-Nose Abnormal or Heel-Resendiz Abnormal Deep Tendon Reflexes: Rt Triceps: 2+, Lt Triceps: 2+, Rt Biceps: 2+, Lt Biceps: 2+, Rt Brachioradialis: 2+, Lt Brachioradialis: 2+, Rt Patellar: 2+, Lt Patellar: 2+, Rt Ankle: 2+ and Lt Ankle: 2+ Special Tests: negative Babinski Present Details: Gait not tested in the context of patient's current neurologic condition. Patient did not experience any dizziness, vertigo, or nausea upon sitting up in bed. Results & Data ([facility]) Vital Signs (Past 12 Hours) Vital Signs Temp Pulse Pulse Resp BP Pulse Ox 01/04/22 08:01 36.8 C 77 17 163/76 H 99 01/04/22 03:31 37.2 C 79 18 154/73 H 99 01/04/22 00:22 36.9 C 80 18 164/77 H 97 01/04/22 00:20 79 Laboratory Results WBC 7.90, hemoglobin 9.7, hematocrit 32.2, MCV 88.7, platelet count 293, sodium 139, potassium 4.2, BUN 28, creatinine 3.01, glucose 87, calcium 8.9, magnesium 1.[address] of the head, MRI of the brain, MRA of the head and neck are as described in the history of present illness. I reviewed the images as well as the radiologist interpretation of these tests. An echocardiogram completed yesterday revealed normal left ventricular systolic function, left atrium mildly dilated, no interatrial shunt with injection of contrast. An electrocardiogram revealed a normal sinus rhythm, 88 bpm. Coding Level of Care Code 23033 Initial Inpt Care Lvl 3 Diagnoses Dizziness R42 Acute hearing loss of right ear H91.91 Nausea & vomiting R11.2 Vomiting type: unspecified Pulsatile tinnitus of both ears H93.A3 (1) Nausea & vomiting Vomiting type: unspecified Qualified Code(s): R11.2 - Nausea with vomiting, unspecified
[2022-01-04] MEDS ORDERED: predniSONE 20 MG TAB PO STA (12:40)
--- NOTE | 2022-01-04 12:42 | Hospitalist Progress Note ---
Date of Service January 04, 2022 Assessment & Plan (1) Acute hearing loss of right ear: Plan: Tinnitus, hearing loss, dizziness, prolific nausea/emesis - in the setting of negative MRI brain and negative MRA head/neck - point towards inner ear source for her presentation. She reports having had a URI for 3 days pre-admission thus this could be a viral vestibular neuronitis or viral labrynthitis. Repeat COVID/flu/RSV PCR negative. Alternatively, given the significant hearing loss, this could be a Meneire's attack. Continue antivert 12.5mg TID scheduled. Zofran prn. Neurology consult appreciated. They, too, feel that right inner ear is the cause of presentation - labrynthitis vs vestibular neuronitis vs Meneire's vs other. I spoke with ENT today - they advised prednisone course x 10 days given the hearing loss. Prednisone 60mg x 5 days, then taper x 5 days. Will need ENT eval shortly after discharge. PT, OT evals. (2) Pulsatile tinnitus of both ears: Plan: See above #1 Explained to pt and her family there is no specific medication for this symptom Ordered a box fan for white noise - she declined it Asked family to bring in head phones with music or white noise, etc (3) Dizziness: Plan: See #1 above (4) URI (upper respiratory infection): Plan: x 3 days symptomatic care rechecked COVID/flu/RSV PCR = negative (5) Intractable nausea and vomiting: Plan: See #1 above resolved MRI brain neg for acute stroke MRA head/neck negative for dissection, aneurysm, etc zofran prn scheduled meclizine TID pepcid IV once daily (6) Generalized weakness: Plan: multifactorial - URI, N/V, etc MRI brain negative MRAs head/neck negative Echo findings noted (7) Asthma-COPD overlap syndrome: Plan: no evidence of exacerbation Cont home inhalers She has baseline, chronic RIVAS with fairly minimal activity (8) Stage 5 chronic kidney disease not on chronic dialysis: Plan: Creatinine 3.09 upon admission, with range 3.06-3.79 CrCl at baseline about 15 Cr today is 3 and stable repeat BMP am Has LUE AV fistula if HD is ever needed in future (9) Bilateral pulmonary embolism: Plan: Bilateral pulm emboli/history of DVT- Cont coumadin per home dosing Daily INR INR today therapeutic (10) Hypertension: Plan: since acute CVA has been ruled out can resume amlodipine (11) SVT (supraventricular tachycardia): Plan: multiple runs seen on telemetry attempted to capture a 12-lead EKG today while in 1 of the episodes by the time EKG machine was attached she already converted to NSR discussed the rhythms with cardiology - nothing to do at this time simply monitor could consider 30-day event monitor post-discharge to quantify frequency of such consider beta roxie if episodes become more frequent or longer cont telemetry (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, known Plan: DVT proph - coumadin I extensively updated the pt's son by phone this evening once again PT, OT fitz done -- needs rehab Admission and Anticipated Discharge Date Admission Date: January 03, 2022 Subjective pt continues with severe, acute hearing loss from the right ear (has chronic b/l hearing loss but MUCH worse on right acutely) pt continues with b/l tinnitus, worse on right the tinnitus is distressing to her nausea/emesis have resolved dizziness improved able to tolerate a diet c/o dyspnea on exertion, but this is chronic; has RIVAS with walking up 1 flight of stairs at home no fevers tele overnight and today - brief runs of what appears to be SVT (longest was 6-7 minutes) Review of Systems Review of Systems: gen - no fevers or chills; some fatigue cv - no orthopnea pulm - no cough or congestion GI - no pain; N/V resolved Physical Exam Physical Exam: gen - looks much better today, more comfortable eyes - PERRL ears - significant hearing impairment b/l but much worse on right; b/l TMs clear with normal landmarks, no fluid or inflammation mouth - MMM neck - no JVD heart - RRR, s1 s2 lungs - CTA b/l abd - soft NT ND BS+ ext - no edema, pulses 2+ b/l vascular - AV fistula, LUE Results & Data Results & Data ([facility]) Vital Signs (Past 12 Hours) Vital Signs Temp Pulse Pulse Resp BP Pulse Ox 01/04/22 11:00 36.7 C 77 19 133/69 92 01/04/22 09:16 77 01/04/22 08:01 36.8 C 77 17 163/76 H 99 01/04/22 03:31 37.2 C 79 18 154/73 H 99 Laboratory Results Laboratory Results - last 24 hr 01/03/22 01/03/22 01/03/22 07:12 17:36 20:01 WBC RBC Hgb Hct MCV MCH MCHC RDW Std Deviation RDW Coeff of Alice Plt Count MPV Immature Gran % (Auto) Neut % (Auto) Lymph % (Auto) Amite % (Auto) Eos % (Auto) Baso % (Auto) Neut # (Auto) Lymph # (Auto) Amite # (Auto) Eos # (Auto) Baso # (Auto) Immature Gran # (Auto) PT INR Sodium Potassium Chloride Carbon Dioxide Anion Gap BUN Creatinine Est Cr Clr Drug Dosing Est GFR ( Amer) Est GFR (Non-Af Amer) BUN/Creatinine Ratio Glucose Estimat Average Glucose 123 Hemoglobin A1c 5.9 H Calcium Phosphorus Magnesium Troponin I High Sens 19.3 H Albumin SARS-CoV-2 (PCR) NEGATIVE Influenza Type A (PCR) Negative Influenza Type B (PCR) Negative RSV (RT-PCR) Negative 01/03/22 01/04/22 01/04/22 23:22 06:55 06:55 WBC 7.90 RBC 3.63 L Hgb 9.7 L Hct 32.2 L MCV 88.7 MCH 26.7 MCHC 30.1 L RDW Std Deviation 54.8 H RDW Coeff of Alice 16.9 H Plt Count 293 MPV 9.2 Immature Gran % (Auto) 0.3 Neut % (Auto) 77.3 Lymph % (Auto) 11.5 Amite % (Auto) 10.0 Eos % (Auto) 0.8 Baso % (Auto) 0.1 Neut # (Auto) 6.11 Lymph # (Auto) 0.91 L Amite # (Auto) 0.79 H Eos # (Auto) 0.06 Baso # (Auto) 0.01 Immature Gran # (Auto) 0.02 PT 21.4 H INR 2.1 H Sodium Potassium Chloride Carbon Dioxide Anion Gap BUN Creatinine Est Cr Clr Drug Dosing Est GFR ( Amer) Est GFR (Non-Af Amer) BUN/Creatinine Ratio Glucose Estimat Average Glucose Hemoglobin A1c Calcium Phosphorus Magnesium Troponin I High Sens 20.5 H Albumin SARS-CoV-2 (PCR) Influenza Type A (PCR) Influenza Type B (PCR) RSV (RT-PCR) 01/04/22 06:55 WBC RBC Hgb Hct MCV MCH MCHC RDW Std Deviation RDW Coeff of Alice Plt Count MPV Immature Gran % (Auto) Neut % (Auto) Lymph % (Auto) Amite % (Auto) Eos % (Auto) Baso % (Auto) Neut # (Auto) Lymph # (Auto) Amite # (Auto) Eos # (Auto) Baso # (Auto) Immature Gran # (Auto) PT INR Sodium 139 Potassium 4.2 Chloride 105 Carbon Dioxide 28 Anion Gap 6 BUN 28 H Creatinine 3.01 H Est Cr Clr Drug Dosing 15.7 Est GFR ( Amer) 16.4 Est GFR (Non-Af Amer) 14.1 BUN/Creatinine Ratio 9.3 L Glucose 87 Estimat Average Glucose Hemoglobin A1c Calcium 8.9 Phosphorus 3.1 Magnesium 1.9 Troponin I High Sens Albumin 3.9 SARS-CoV-2 (PCR) Influenza Type A (PCR) Influenza Type B (PCR) RSV (RT-PCR) PG Care Time/CCT Total # of Minutes Spent Total Time Spent with Patient: Total time spent is greater than 50% in coordination of care (as documented) at patient's floor/unit and/or counseling patient: Coding Level of Care Code 38348 Subseq Hosp Care Lvl 3 Diagnoses Acute hearing loss of right ear H91.91 Pulsatile tinnitus of both ears H93.A3 Dizziness R42 URI (upper respiratory infection) J06.9 Intractable nausea and vomiting R11.2 Generalized weakness R53.1 Asthma-COPD overlap syndrome J44.9 Stage 5 chronic kidney disease not on chronic dialysis N18.5 Bilateral pulmonary embolism I26.99 Hypertension I10 SVT (supraventricular tachycardia) I47.1 Blind left eye H54.40
[2022-01-04] MEDS: WARFARIN SOD 3 MG TAB PO SCH (16:55)
[2022-01-04] MEDS: PARoxetine HCL 20 MG TAB PO SCH (20:23)
[2022-01-05 08:03] LABS: Hematocrit (blood only) 31.1 % (37-47); Hemoglobin 9.7 g/dL (12.0-16.0); Immature Granulocytes # (auto) 0.01 K/uL (0.00-0.02); Immature Granulocytes % (auto) 0.2 %; Lymphocytes # (auto) 0.65 K/uL (1.2-3.4); Mean Corpuscular Hemoglobin 26.9 pg (25-34); Mean Corpuscular Hgb Conc 31.2 g/dL (32-36); Mean Corpuscular Volume 86.1 fL (80-100); Mean Platelet Volume 9.2 fL (7.4-10.4); Monocytes # (auto) 0.29 K/uL (0.11-0.59); Monocytes % (auto) 5.4 %; Neutrophils # (auto) 4.45 K/uL (1.4-6.5); Neutrophils % (auto) 82.4 %; Platelet Count 300 K/uL (130-400); RDW Coefficient of Variation 16.8 % (11.5-14.5); Red Blood Count 3.61 M/uL (4.2-5.4)
[2022-01-05 08:09] LABS: INR 2.2 (0.9-1.1); Prothrombin Time 22.3 Seconds (9.0-12.0)
[2022-01-05 08:33] LABS: Albumin Level 3.9 gm/dl (3.4-5.0); BUN Creatinine Ratio 12.1 (10-20); Calcium 8.9 mg/dl (8.5-10.1); Creatinine Clr Calc Pharmacy 15.2 ml/min; Est GFR (African American) 15.6 ml/min; Est GFR (Non-African American) 13.5 ml/min; Magnesium 2.1 mg/dl (1.7-2.4); Phosphorus 3.7 mg/dl (2.5-4.9); Potassium 4.3 mmol/L (3.5-5.1)
[2022-01-05] MEDS ORDERED: predniSONE 20 MG TAB PO SCH (09:00)
[2022-01-05] MEDS: FAMOTIDINE 20 MG in SYRINGE 3 ML IV SCH (09:50)
[2022-01-05] MEDS: ASPIRIN 81 MG ECTAB PO SCH (09:50)
[2022-01-05] MEDS: FLUTICASONE/VILANTEROL 100/25MCG 14 PUFFS/INHALER INH SCH (09:50)
[2022-01-05] MEDS: MECLIZINE 12.5 MG TAB PO SCH ×2 (09:50→14:16)
[2022-01-05] MEDS: amLODIPine BESYLATE 5 MG TAB PO SCH (09:50)
[2022-01-05] MEDS: FLUTICASONE PROPIONATE NA SPR 16 GM BTL SCH (09:51)
--- NOTE | 2022-01-05 15:58 | Discharge Summary ---
Date of Service January 05, 2022 Admission HPI Per Admitting Provider The patient is a 81-year-old female with a past medical history including asthma-COPD overlap syndrome, secondary hyperparathyroidism, vitamin D deficiency, stage V chronic kidney disease not on dialysis, bilateral PE, p ulmonary infarct, history of DVT, multiple pulmonary nodules, acute cystitis, anxiety, left eye amaurosis fugax, recurrent urinary tract infection, blind left eye and fibula fracture. Patient presents to the emergency department as noted above. She continued to have nausea and vomiting while in the ED, with symptoms somewhat but not completely responsive to Zofran. She reports there is no abdom inal pain, and this was not associated with food intake this evening. She denies any recent changes in her medications. She denies any recent travels or sick exposures. Principal Diagnosis Vestibular Neuronitis vs Meniere's Disease Discharge Exam Constitutional WD/WN, vitals as above Eyes PERRL, conjunctivae normal, anicteric sclerae EOM intact bilaterally; no anisocoria and no nystagmus ENMT external ear and nose normal, oropharynx normal Neck trachea midline, no thyromegaly Respiratory normal respiratory effort, lungs clear to auscultation Cardiovascular RRR, no murmur, no edema Chest (Breasts) Chest: normal inspection of chest Gastrointestinal (Abdomen) normal bowel sounds, soft, nontender, no hepatosplenomegaly Musculoskeletal Extremities: extremities normal to inspection; no cyanosis and no clubbing Skin no rashes, warm and dry Neurologic moves all extremities and awake; no focal motor deficits Psychiatric A+Ox3, euthymic affect Lymphatic no lymphedema Discharge Data Allergies Allergy/AdvReac Type Severity Reaction Status Date / Time Sulfa (Sulfonamide Allergy Mild HEADACHE, Verified 11/30/21 14:51 Antibiotics) VERTIGO nitrofurantoin AdvReac Severe renal Verified 11/30/21 14:51 insufficiency Consultations 01/03/22 02:20 ED Decision to Admit Stat 01/03/22 19:44 Consult Neurology Routine Ordered Studies 01/02/22 23:12 CT head/brain wo con Urgent 01/03/22 03:25 MR angio neck wo con Routine 01/03/22 03:58 MR angio head wo con Routine MR brain wo con Routine Hospital Course (1) Acute hearing loss of right ear: Tinnitus, hearing loss, dizziness, prolific nausea/emesis - in the setting of negative MRI brain and negative MRA head/neck - point towards inner ear source for her presentation. She reports having had a URI for 3 days pre-admission thus this could be a viral vestibular neuronitis or viral labrynthitis. Repeat COVID/flu/RSV PCR negative. Alternatively, given the significant hearing loss, this could be a Meniere's attack. MUCH improved-no further dizziness now but still with hearing loss and tinnitus Continue antivert 12.5mg TID prn after discharge Neurology consult appreciated. They, too, feel that right inner ear is the cause of presentation - labrynthitis vs vestibular neuronitis vs Meniere's vs other. Previous hospitalist spoke with ENT on 01/04 - they advised prednisone course x 10 days given the hearing loss. Prednisone 60mg x 5 days, then taper x 5 days. Will need ENT eval shortly after discharge. PT, OT evals recommend return home (2) Pulsatile tinnitus of both ears: as above Explained to pt and her family there is no specific medication for this symptom Ordered a box fan for white noise - she declined it Asked family to bring in head phones with music or white noise, etc (3) Dizziness: as above (4) URI (upper respiratory infection): x 3 days symptomatic care rechecked COVID/flu/RSV PCR = negative (5) Intractable nausea and vomiting: resolved MRI brain neg for acute stroke MRA head/neck negative for dissection, aneurysm, etc meclizine TID pepcid IV once daily was provided (6) Generalized weakness: multifactorial - URI, N/V, etc MRI brain negative MRAs head/neck negative Echo findings noted -severe MR-f/u as outpt with Cardiology and/or PCP (7) Asthma-COPD overlap syndrome: no evidence of exacerbation Cont home inhalers She has baseline, chronic RIVAS with fairly minimal activity (8) Stage 5 chronic kidney disease not on chronic dialysis: Creatinine 3.09 upon admission, with range 3.06-3.79 CrCl at baseline about 15 Cr today is 3 and stable Has LUE AV fistula if HD is ever needed in future (9) Bilateral pulmonary embolism: Bilateral pulm emboli/history of DVT- Cont coumadin per home dosing Daily INR is therapeutic (10) Hypertension: -continue amlodipine (11) SVT (supraventricular tachycardia): multiple runs seen on telemetry, asymptomatic attempted to capture a 12-lead EKG today while in 1 of the episodes by the time EKG machine was attached she already converted to NSR previous hospitalist discussed the rhythms with cardiology - nothing to do at this time simply monitor could consider 30-day event monitor post-discharge to quantify frequency of such-f/u with PCP consider beta roxie if episodes become more frequent or longer (12) Blind left eye: chronic, known DVT proph - coumadin Dispo-stable for dc to home, PT/OT recommend home Total Time Total Time Spent Total Time Spent (In Minutes): 45 min Discharge Plan Discharge Items Patient Disposition: Home - Self-Care Reason For Visit: INTRACTABLE N/V, TIA Discharge Diagnosis: Vestibular neuronitis vs Meniere's disease Condition on Discharge: Good Activity: As commented below Lifting: Gradually increase as tolerated Bathing: No limitations Exercise/Sports: Gradually increase as tolerated Driving/Machine Use: No driving Non-emergency contact: Primary Care Provider and Surgeon Call non-emergency contact if: you have any medication questions and your symptoms worsen Follow-up/Referrals: Michelle Todd PA-C [Physician [employer]] - 03/26/22 2:30 am ([facility]. A request has been provided to this office to please review your information, to see if you are able to be seen sooner than 03/26. You are also on the cancellation list.) Soledad Meier MD [Physician] - Natty Rankin MD [Physician] - (Dr. Rankin's office will be in touch with you regarding an appointment in the near future) PCP,NO [Primary Care Provider] - Diet: Low Sodium (2gm) Addtl Attending Provider Instructions: Please finish out the taper of prednisone as prescribed. You can take meclizine as needed for dizziness or nausea. Please follow up with the ENT doctor-we are working on getting you an appointment sooner than is readily available at the moment. Pending Studies at Discharge: No Stand-Alone Forms: My [facility] [employer] Medications and DC Order Prescriptions: New prednisone 20 mg Tablet 60 mg PO DAILY Qty: 16 RF: 0 meclizine 12.5 mg Tablet 12.5 mg PO TID PRN (Reason: dizziness) Qty: 15 RF: 0 Continued aspirin [Adult Low Dose Aspirin] 81 mg tablet,delayed release (DR/EC) 81 mg PO DAILY RF: 0 amlodipine 5 mg tablet 5 mg PO DAILY Qty: 90 RF: 3 warfarin 3 mg tablet See Rx Instructions PO UD Qty: 90 RF: 2 diphenhydramine-acetaminophen 25-500 mg tablet 25 - 500 tab PO HS RF: 0 epoetin kole 40,000 unit/mL solution 40,000 unit subcut .q2w 60 Days RF: 6 Symbicort 160-4.5 mcg/actuation HFA aerosol inhaler 2 puff INH BID Qty: 10.2 RF: 11 albuterol sulfate 90 mcg/actuation HFA aerosol inhaler 2 puff INH Q6H PRN (Reason: Shortness Of Breath Or Wheezing) Qty: 18 RF: 4 fluticasone propionate [Allergy Relief (fluticasone)] 50 mcg/actuation spray,suspension 1 spray INTNAS DAILY Qty: 9.9 RF: 3 calcitriol 0.5 mcg capsule 0.5 mcg PO UD Qty: 45 RF: 3 lorazepam 0.5 mg tablet 0.5 mg PO TID PRN (Reason: Anxiety) RF: 0 paroxetine HCl 20 mg tablet 20 mg PO HS RF: 0 Discharge Orders: Discharge Order (Routine); Ordered 01/05/22 Ordered By: Mercedes Martin Admission Data Admit Date/Time: 01/04/22 12:42 Attending Provider: Mercedes Martin Admit Provider: Erich Araya Primary Care Provider: PCP,NO Other Providers: Erich Araya ; Ed Chavira Coding Level of Care Code D/C DAY MANAGEMENT >30 MINS Diagnoses Acute hearing loss of right ear H91.91 Pulsatile tinnitus of both ears H93.A3 Dizziness R42 URI (upper respiratory infection) J06.9 Intractable nausea and vomiting R11.2 Generalized weakness R53.1 Asthma-COPD overlap syndrome J44.9 Stage 5 chronic kidney disease not on chronic dialysis N18.5 Bilateral pulmonary embolism I26.99 Hypertension I10 SVT (supraventricular tachycardia) I47.1 Blind left eye H54.40
[2022-01-05] MEDS: WARFARIN SOD 3 MG TAB PO SCH (16:13)
== END 2022-01-05 16:55 | disposition home or self-care (01) ==
LOC: 2S 22:53 → ED 22:53 → SUATTDRO 01-03 03:25 → 2S 01-03 04:09 → SUATTDRO 01-04 12:42

== ENCOUNTER 2022-07-25 14:42 | Inpatient (IN) ==
[2022-07-25] MEDS ORDERED: STAT IV Infusion **Titration per Protocol STA (15:20)
[2022-07-25] MEDS ORDERED: methylPREDNISolone 125 MG/2 ML VIAL IV STA (15:20)
[2022-07-25] MEDS ORDERED: LEVALBUTEROL HCL 0.63 MG/3 ML NEB NEB STA (15:20)
--- NOTE | 2022-07-25 15:26 | Emergency Department Note ---
Impression & Plan SOB (shortness of breath), Atrial fibrillation with rapid ventricular response ED Provider Note INFORMANT: Patient and daughter ED PROVIDER(S): Stas Jesus MD CHIEF COMPLAINT: Shortness of breath PLAN: Disposition: Admitted Condition: Good Outpatient prescription management: none Referral: None MEDICAL DECISION MAKING: Patient presented because of shortness of breath. She was noted to be tachycardic and ECG revealed atrial fibrillation with rapid ventricular respo nse. The patient had blood work obtained as well as viral testing. She was started on Cardizem drip. She was given a Xopenex nebulizer treatment and IV Solu-Medrol due to her history of COPD. The patient was found to have pulmonary vascular congestion on chest x-ray. Her BNP was significantly elevated. Both point towards CHF. Her chemistry panel revealed her baseline renal insufficiency. Patient is mildly anemic. Electrolytes stable. On reassessment the patient was feeling better. She was still mildly tachycardic with regards to the atrial fibrillation. IV Lasix was ordered. Further management in the hospital will be necessary given the patient's multiple problems noted above. Consultation was made with the [facility] hospitalist service, Dr. John Paul Rockwell. Patient's history, diagnostics, and treatment reviewed. Patient was evaluated in the emergency department and admitted for further management Triage Nursing notes reviewed and agree them. Vital Signs: reviewed and remarkable for tachycardia Prior /Outside records reviewed: none Differential diagnosis: Reactive airway disease, pneumonia, pneumothorax, COPD, CHF, infections, cardiac ischemia, pulmonary embolism, as well as other pathologies. Diagnostics, as interpreted by me: ECG: Twelve-lead ECG reveals atrial fibrillation with rapid ventricular response at 132 bpm. Poor R wave progression anteriorly. No ST elevation. Cardiac monitoring ordered by me: The patient was placed on continuous cardiac monitoring and observed. It revealed atrial fibrillation at 134 bpm. Medical decision rules: none Imaging studies: Chest x-ray consistent with CHF as noted above. HPI: The patient is a 82 year old female who presents to the Emergency Room with complaints of shortness of breath. This started few days ago and is worsening. The patient also notes the following associated symptoms, mild cough, generalized weakness, palpitations. The patient has tried her inhalers unsuccessfully for relieving factors. Current pain is rated as 0/10. Symptoms worse with exertion. Pt denies LOC, headache, fevers, chills, diaphoresis, visual changes, neck pain, chest pain, nausea, vomiting, abdominal pain, back pain, melena, hematochezia, urinary symptoms, numbness, lymphadenopathy, rash, or other complaints. PAST MEDICAL HISTORY: See Below, anemia, chronic renal sufficiency, COPD PAST SURGICAL HISTORY: See Below, AV fistula left arm SOCIAL HISTORY: See Below, non-smoker HOME MEDICATIONS: See Below ALLERGIES: See Below VITALS: See Below PHYSICAL EXAMINATION: GENERAL: Awake, alert, dyspneic-appearing, in no distress HENT: Normocephalic, atraumatic. Oropharynx unremarkable. EYES: Pale conjunctiva. Sclera non-icteric. NECK: Inspection normal. Non-tender. Supple. No nuchal rigidity. FROM. No masses. RESPIRATORY: Clear to auscultation except for few scattered wheezes. Increased respiratory effort. CARDIAC: Tachycardic rate. Regular rhythm. No murmurs. No rubs. Extremities warm and well perfused. Pulses equal. No JVD. GI: Soft, non-distended. No tenderness to palpation. No rebound or guarding. No masses. RECTAL: Deferred. MUSCULOSKELETAL: Atraumatic. Chest examination reveals no tenderness. The back is symmetrical on inspection without obvious abnormality. There is no CVA tenderness to palpation. No joint edema. LOWER EXTREMITIES: Calves are equal size bilaterally and non-tender. 1+ edema. No discoloration. NEURO: Normal sensorium. No sensory or motor deficits noted. SKIN: No rash or jaundice noted. CRITICAL CARE: I have personally spent greater than 35 minutes of critical care time in the direct management of this patient. This includes bedside care, interpretation of diagnostic studies, and testing, discussion with consultants, patient, and family members, and other required patient management activities. These minutes are in excess of all separately billable procedures. 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 Vitamin D deficiency Surgical History Hx of hysterectomy Family History Mother Blood clot in vein Father Myocardial infarction Sister Blood clot in vein Aunt Blood clot in vein Social History Smoking Status: Never smoker Second Hand Exposure: No; Hx Alcohol Use: No Hx Substance Use: No Preferred Language: Dutch Communication Ability: Effective Visual Impairment: Limited Hearing Ability: Use of Hearing Aid Health Insurance Adjuster Required: No Beliefs That Will Affect Care: None marital status: / Current Living Situation: Alone current occupational status: retired How many Children do You have: 3 Feels Safe at Home: Yes Childhood Exposure to Second-Hand Smoke: Yes caffeine: No Dental Care, Regularly: Yes Physical Activity Frequency: Does not Exercise Seatbelt Use: always Sunscreen Use: Yes Assistive Devices: Glasses and Walker Allergies Allergies Allergy/AdvReac Type Severity Reaction Status Date / Time Sulfa (Sulfonamide Allergy Intermediate HEADACHE, Verified 07/25/22 16:55 Antibiotics) VERTIGO Home Meds Home Medications Medication Instructions Recorded Confirmed lorazepam 0.5 mg tablet 0.5 mg PO TID PRN Anxiety 06/12/19 07/25/22 aspirin 81 mg tablet,delayed 81 mg PO HS 07/02/19 07/25/22 release (Adult Low Dose Aspirin) calcitriol 0.5 mcg capsule 0.5 mcg PO 3XWK 03/24/22 07/25/22 diphenhydramine 25 2 tab PO HS 04/26/22 07/25/22 mg-acetaminophen 500 mg tablet (Tylenol PM Extra Strength) warfarin 3 mg tablet See Rx Instructions .Route .COMPLEX 06/16/22 07/25/22 atorvastatin 20 mg tablet 20 mg PO HS 07/25/22 07/25/22 paroxetine HCl 40 mg tablet 40 mg PO HS 07/25/22 07/25/22 Previous Rx's Medication Instructions Recorded epoetin kole 40,000 unit/mL 40,000 unit subcut .q2w 60 days 07/15/21 injection solution albuterol sulfate 90 mcg/actuation 2 puff inhalation Q6H PRN 11/30/21 aerosol inhaler Shortness Of Breath Or Wheezing #18 grams budesonide-formoterol HFA 160 2 puff inhalation BID #10.2 grams 11/30/21 mcg-4.5 mcg/actuation aerosol inhaler (Symbicort) fluticasone propionate 50 1 spray intranasal DAILY #9.9 grams 11/30/21 mcg/actuation nasal spray,suspension (Allergy Relief (fluticasone)) amlodipine 5 mg tablet 5 mg PO DAILY #90 tabs 02/26/22 meclizine 12.5 mg tablet 12.5 mg PO TID PRN dizziness #30 06/10/22 tabs Results & Data (ED) Vital Signs Vital Signs - 24 hr 07/25/22 14:48 07/25/22 15:19 07/25/22 15:19 Temperature 36.1 C L Temperature Source Temporal Artery Scan Pulse Rate 134 H Pulse Rate [Apical] Respiratory Rate 22 Respiratory Effort / Characteristics Non-Labored Spontaneous Respiratory Depth Normal Respiratory Pattern Regular Blood Pressure 135/76 Blood Pressure [Right Arm] Blood Pressure Mean 95 Blood Pressure Mean [Right Arm] Pulse Oximetry 96 96 96 Oxygen Delivery Method Room Air Room Air Room Air Sepsis Recent Fever Within 48 Hours No Sepsis New/Unexplained Change in Mental Status No Sepsis Action Taken by Nursing No Action Required 07/25/22 15:43 07/25/22 15:30 07/25/22 16:00 Temperature Temperature Source Pulse Rate 117 H 116 H Pulse Rate [Apical] 118 H Respiratory Rate 20 22 20 Respiratory Effort / Characteristics Non-Labored Respiratory Depth Normal Respiratory Pattern Blood Pressure 125/85 132/85 Blood Pressure [Right Arm] 125/85 Blood Pressure Mean 98 100 Blood Pressure Mean [Right Arm] 98 Pulse Oximetry 100 96 94 Oxygen Delivery Method Room Air Sepsis Recent Fever Within 48 Hours Sepsis New/Unexplained Change in Mental Status Sepsis Action Taken by Nursing 07/25/22 16:30 Temperature Temperature Source Pulse Rate 112 H Pulse Rate [Apical] Respiratory Rate 21 Respiratory Effort / Characteristics Respiratory Depth Respiratory Pattern Blood Pressure 141/83 H Blood Pressure [Right Arm] Blood Pressure Mean 102 Blood Pressure Mean [Right Arm] Pulse Oximetry 94 Oxygen Delivery Method Sepsis Recent Fever Within 48 Hours Sepsis New/Unexplained Change in Mental Status Sepsis Action Taken by Nursing Laboratory Data Result diagrams: 07/25/22 15:05 07/25/22 15:05 Lab Results 07/25/22 07/25/22 07/25/22 Range/Units 15:05 15:05 15:05 WBC 6.03 (4.8-10.8) K/ul RBC 3.80 L (3.93-5.22) M/uL Hgb 9.8 L (12.0-16.0) g/dl Hct 32.1 L (34.1-44.9) % MCV 84.5 (80.0-100.0) fL MCH 25.8 (25.0-34.0) pg MCHC 30.5 L (32.0-36.0) g/dL RDW Std Deviation 54.2 H (36.4-46.3) fL RDW Coeff of Alice 17.7 H (11.5-14.5) % Plt Count 285 (130-400) K/uL MPV 10.3 (9.4-12.3) fL Immature Gran % (Auto) 0.3 % Neut % (Auto) 71.7 % Lymph % (Auto) 17.4 % [place] % (Auto) 7.3 % Eos % (Auto) 2.5 % Baso % (Auto) 0.8 % Neut # (Auto) 4.32 (1.4-6.5) K/uL Lymph # (Auto) 1.05 L (1.2-3.4) K/uL [place] # (Auto) 0.44 (0.24-0.82) K/uL Eos # (Auto) 0.15 (0-0.50) K/uL Baso # (Auto) 0.05 (0-0.2) K/uL Immature Gran # (Auto) 0.02 (0.00-0.02) K/uL PT 28.1 H (9.0-12.0) Seconds INR 2.8 H (0.9-1.1) Sodium 141 (136-145) mmol/L Potassium 4.6 (3.5-5.1) mmol/L Chloride 107 (98-107) mmol/L Carbon Dioxide 25 (21-32) mmol/L Anion Gap 9 (3-11) BUN 37 H (6-23) mg/dl Creatinine 3.44 H (0.6-1.2) mg/dl Est Cr Clr Drug Dosing 13.1 ml/min Est GFR ( Amer) 13.8 ml/min Est GFR (Non-Af Amer) 11.9 ml/min BUN/Creatinine Ratio 10.8 (10-20) Glucose 145 H (70-99(Fasting)) mg/dl Calcium 9.6 (8.5-10.1) mg/dl Magnesium 2.1 (1.7-2.4) mg/dl Total Bilirubin 0.7 (0.2-1.0) mg/dl AST 48 H (13-39) U/L ALT 92 H (7-52) U/L Alkaline Phosphatase 67 (34-104) U/L Troponin I High Sens 15.9 H (0-14) pg/ml B-Natriuretic Peptide (0-100) pg/ml Total Protein 6.8 (6.0-8.3) gm/dl Albumin 4.1 (3.4-5.0) gm/dl Globulin 2.7 (2.5-4.0) gm/dl Albumin/Globulin Ratio 1.5 (0.9-2) Urine Color Urine Appearance (Clear) Urine pH (4.5-7.5) Ur Specific [place] (1.000-1.030) Urine Protein (Negative) Urine Glucose (UA) (Negative) Urine Ketones (Negative) Urine Blood (Negative) Urine Nitrite (Negative) Urine Bilirubin (Negative) Urine Urobilinogen (Negative) Ur Leukocyte Esterase (Negative) SARS-CoV-2 (PCR) (Negative) Influenza Type A (PCR) (Neg) Influenza Type B (PCR) (Neg) RSV (RT-PCR) (Neg) 07/25/22 07/25/22 07/25/22 Range/Units 15:36 15:37 17:15 WBC (4.8-10.8) K/ul RBC (3.93-5.22) M/uL Hgb (12.0-16.0) g/dl Hct (34.1-44.9) % MCV (80.0-100.0) fL MCH (25.0-34.0) pg MCHC (32.0-36.0) g/dL RDW Std Deviation (36.4-46.3) fL RDW Coeff of Alice (11.5-14.5) % Plt Count (130-400) K/uL MPV (9.4-12.3) fL Immature Gran % (Auto) % Neut % (Auto) % Lymph % (Auto) % [place] % (Auto) % Eos % (Auto) % Baso % (Auto) % Neut # (Auto) (1.4-6.5) K/uL Lymph # (Auto) (1.2-3.4) K/uL [place] # (Auto) (0.24-0.82) K/uL Eos # (Auto) (0-0.50) K/uL Baso # (Auto) (0-0.2) K/uL Immature Gran # (Auto) (0.00-0.02) K/uL PT (9.0-12.0) Seconds INR (0.9-1.1) Sodium (136-145) mmol/L Potassium (3.5-5.1) mmol/L Chloride (98-107) mmol/L Carbon Dioxide (21-32) mmol/L Anion Gap (3-11) BUN (6-23) mg/dl Creatinine (0.6-1.2) mg/dl Est Cr Clr Drug Dosing ml/min Est GFR ( Amer) ml/min Est GFR (Non-Af Amer) ml/min BUN/Creatinine Ratio (10-20) Glucose (70-99(Fasting)) mg/dl Calcium (8.5-10.1) mg/dl Magnesium (1.7-2.4) mg/dl Total Bilirubin (0.2-1.0) mg/dl AST (13-39) U/L ALT (7-52) U/L Alkaline Phosphatase (34-104) U/L Troponin I High Sens (0-14) pg/ml B-Natriuretic Peptide 1000 H (0-100) pg/ml Total Protein (6.0-8.3) gm/dl Albumin (3.4-5.0) gm/dl Globulin (2.5-4.0) gm/dl Albumin/Globulin Ratio (0.9-2) Urine Color Yellow Urine Appearance Clear (Clear) Urine pH 5.5 (4.5-7.5) Ur Specific [place] 1.011 (1.000-1.030) Urine Protein Negative (Negative) Urine Glucose (UA) Negative (Negative) Urine Ketones Negative (Negative) Urine Blood Negative (Negative) Urine Nitrite Negative (Negative) Urine Bilirubin Negative (Negative) Urine Urobilinogen Negative (Negative) Ur Leukocyte Esterase Negative (Negative) SARS-CoV-2 (PCR) NEGATIVE (Negative) Influenza Type A (PCR) Negative (Neg) Influenza Type B (PCR) Negative (Neg) RSV (RT-PCR) Negative (Neg) Administered Medications Diltiazem HCl 125 mg/ Dextrose 125 mls @ 5 mls/hr IV .Q24H NATHALIA; Protocol Stop: 08/24/22 15:29 Last Admin: 07/25/22 15:37 Dose: 5 mg/hr, 5 mls/hr Documented By: DOMINIK Co-signed By: TW Discontinued Medications Furosemide (Furosemide 40 Mg/4 Ml Vial) 40 mg IV ONE ONE Stop: 07/25/22 16:46 Last Admin: 07/25/22 16:49 Dose: 40 mg Documented By: DOMINIK Levalbuterol HCl (Levalbuterol Hcl 0.63 Mg/3 Ml Neb) 0.63 mg NEB NOW STA; Protocol Stop: 07/25/22 15:21 Last Admin: 07/25/22 15:37 Dose: 0.63 mg Documented By: DOMINIK Methylprednisolone (Methylprednisolone 125 Mg/2 Ml Vial) 125 mg IV NOW STA Stop: 07/25/22 15:21 Last Admin: 07/25/22 15:37 Dose: 125 mg Documented By: DOMINIK Miscellaneous (Stat Iv Infusion Titration Per Protocol) 1 each N/A NOW STA Stop: 07/25/22 15:21 Last Admin: 07/25/22 15:44 Dose: 1 each Documented By: DOMINIK Imaging Data Radiologist's Impression: Chest X-Ray 07/25/22 15:16 XR chest 1V portable HISTORY: Dyspnea COMPARISON: Chest 06/12/2019. FINDINGS: No pneumothorax. There are trace bilateral pleural effusions and hazy bibasilar densities. The heart is mildly enlarged. There is progressive interstitial/vascular thickening likely representing mild congestive change. IMPRESSION: 1. Cardiomegaly with mild congestive change and trace bilateral pleural effusions. 2. Hazy bibasilar densities may represent the layering pleural effusions, atelectasis, or a developing pneumonia. ACT 112: Negative or not required by law. Electronically signed by: Crescencio Lynch M.D. 07/25/2022 3:30 PM Discharge Plan Visit Data Chief Complaint: Shortness of Breath/Dyspnea Stated Complaint: SHORTNESS OF BREATH, TACHYCARDIA ED Provider: Stas Jesus Discharge Problem: SOB (shortness of breath), Atrial fibrillation with rapid ventricular response Forms Stand Alone Forms: My [facility] [place] [employer] Prescriptions Prescriptions: No Action aspirin [Adult Low Dose Aspirin] 81 mg tablet,delayed release (DR/EC) 81 mg PO HS warfarin 3 mg tablet See Rx Instructions .ROUTE .COMPLEX Rx Instructions: TAKES QPM-- 0 MG ON MONDAYS, THEN 3 MG ALL OTHER DAYS. per [facility] ora lly use as directed; amlodipine 5 mg tablet 5 mg PO DAILY Qty: 90 3RF epoetin kole 40,000 unit/mL solution 40,000 unit subcut .q2w 60 Days 6RF Rx Instructions: Hold for Hgb >10.5 Procrit 40,000 unit/mL solution 40,000 unit subcut ONCE Qty: 1 0RF diphenhydramine-acetaminophen [Tylenol PM Extra Strength] 25-500 mg tablet 2 tab PO HS Symbicort 160-4.5 mcg/actuation HFA aerosol inhaler 2 puff INH BID Qty: 10.2 11RF albuterol sulfate 90 mcg/actuation HFA aerosol inhaler 2 puff INH Q6H PRN (Reason: Shortness Of Breath Or Wheezing) Qty: 18 4RF fluticasone propionate [Allergy Relief (fluticasone)] 50 mcg/actuation spray,suspension 1 spray INTNAS DAILY Qty: 9.9 3RF Rx Instructions: administer into each nostril once daily meclizine 12.5 mg tablet 12.5 mg PO TID PRN (Reason: dizziness) Qty: 30 0RF calcitriol 0.5 mcg capsule 0.5 mcg PO 3XWK Rx Instructions: TAKES MON, WED, & FRI. IN THE HS. lorazepam 0.5 mg tablet 0.5 mg PO TID PRN (Reason: Anxiety) atorvastatin 20 mg tablet 20 mg PO HS paroxetine HCl 40 mg tablet 40 mg PO HS Referrals Referrals: Soledad Meier MD [Primary Care Provider] -
--- NOTE | 2022-07-25 15:32 | XRay Report ---
XR chest 1V portable HISTORY: Dyspnea COMPARISON: Chest 06/12/2019. FINDINGS: No pneumothorax. There are trace bilateral pleural effusions and hazy bibasilar densities. The heart is mildly enlarged. There is progressive interstitial/vascular thickening likely representi ng mild congestive change. IMPRESSION: 1. Cardiomegaly with mild congestive change and trace bilateral pleural effusions. 2. Hazy bibasilar densities may represent the layering pleural effusions, atelectasis, or a developin g pneumonia. ACT 112: Negative or not required by law. Electronically signed by: Crescencio Lynch M.D. 07/25/2022 3:30 PM
[2022-07-25] MEDS: dilTIAZem HCL 125 MG in DEXTROSE 5% 100 ML IV SCH (15:37)
[2022-07-25 15:46] LABS: Basophils # (auto) 0.05 K/uL (0-0.2); Basophils % (auto) 0.8 %; Eosinophils # (auto) 0.15 K/uL (0-0.50); Eosinophils % (auto) 2.5 %; Hematocrit (blood only) 32.1 % (34.1-44.9); Hemoglobin 9.8 g/dl (12.0-16.0); Immature Granulocytes # (auto) 0.02 K/uL (0.00-0.02); Immature Granulocytes % (auto) 0.3 %; Lymphocytes # (auto) 1.05 K/uL (1.2-3.4); Lymphocytes % (auto) 17.4 %; Mean Corpuscular Hemoglobin 25.8 pg (25.0-34.0); Mean Corpuscular Hgb Conc 30.5 g/dL (32.0-36.0); Mean Corpuscular Volume 84.5 fL (80.0-100.0); Mean Platelet Volume 10.3 fL (9.4-12.3); Monocytes # (auto) 0.44 K/uL (0.24-0.82); Monocytes % (auto) 7.3 %; Neutrophils # (auto) 4.32 K/uL (1.4-6.5); Neutrophils % (auto) 71.7 %; Platelet Count 285 K/uL (130-400); RDW Coefficient of Variation 17.7 % (11.5-14.5); RDW Standard Deviation 54.2 fL (36.4-46.3); White Blood Count 6.03 K/ul (4.8-10.8)
[2022-07-25 15:58] LABS: Albumin Globulin Ratio 1.5 (0.9-2); Albumin Level 4.1 gm/dl (3.4-5.0); BUN Creatinine Ratio 10.8 (10-20); Bilirubin,Total 0.7 mg/dl (0.2-1.0); Calcium 9.6 mg/dl (8.5-10.1); Creatinine Clr Calc Pharmacy 13.1 ml/min; Est GFR (African American) 13.8 ml/min; Est GFR (Non-African American) 11.9 ml/min; Globulin 2.7 gm/dl (2.5-4.0); Magnesium 2.1 mg/dl (1.7-2.4); Potassium 4.6 mmol/L (3.5-5.1); Total Protein 6.8 gm/dl (6.0-8.3)
[2022-07-25 16:03] LABS: Troponin I High Sensitivity 15.9 pg/ml (0-14)
[2022-07-25 16:17] LABS: INR 2.8 (0.9-1.1); Prothrombin Time 28.1 Seconds (9.0-12.0)
[2022-07-25] MEDS ORDERED: FUROSEMIDE 40 MG/4 ML VIAL IV ONE (16:45)
[2022-07-25 16:50] LABS: Influenza A virus by PCR Negative (Neg); Influenza B virus by PCR Negative (Neg); RSV by PCR Negative (Neg); SARS CoV2 RNA(COVID-19) Ceph NEGATIVE (Negative)
--- NOTE | 2022-07-25 17:09 | History & Physical Report ---
Date of Service July 25, 2022 Assessment & Plan (1) SOB (shortness of breath): Plan: Patient shortness of breath is multifactorial certainly it is somewhat influenced by her acute on chronic diastolic heart failure from atrial fibrillation rapid ventricular response however she also has a component of acute on chronic respiratory failure with an exacerbation of her COPD. She is currently being diuresed attempts at rate control for A. fib she is given intravenous Solu-Medrol and be continued on the same with duo nebs frequently. He does not appear at this time she is got an infectious etiology (2) Atrial fibrillation with rapid ventricular response: Plan: Patient is atrial fibrillation rapid ventricular response and also acute on chronic diastolic heart failure secondary to the same plus valvular heart disease. In the emergency department she started on diltiazem drip without much improvement Given 1 dose of Lasix therapy Additional Lasix will not be given unless we have issues with hypoxia, we will try to control her rate with diltiazem drip and metoprolol but can use amiodarone if need be as she is therapeutically anticoagulated on presentation both her atrial fibrillation and history of pulmonary embolism in the past. (3) Stage 5 chronic kidney disease not on chronic dialysis: Plan: Patient has a history of chronic kidney disease stage V on dialysis. If she does not make significant urine output to volume offload her we need to discuss with nephrology whether she should pursue dialysis Per nephrology note from May 15 the patient has an unclear etiology of her chronic kidney disease with never having a biopsy. Her work-up had been negative in the office she remains on calcitriol erythropoietin 40,000 units twice a month typically she sees Dr. Gabriel and (4) Anemia in CKD (chronic kidney disease): Plan: Patient's hemoglobin is stable at this point time (5) Hypercholesteremia: Plan: Typically on atorvastatin 20 (6) Anxiety: Plan: Patient remains on paroxetine with lorazepam for backup anxiety History of Present Illness Primary Care Provider: Soledad Meier MD 82-year-old female presents to the emergency department with respiratory distress shortness of breath. Patient had a few days of worsening at home. Patient is a history of COPD and use her home inhalers without improvement. Patient has history of diastolic heart failure elevated BNP and A. fib RVR presentation with congestive changes seen on chest x-ray she was given Lasix therapy steroids and inhaled medications for treatment of both a acute exacerbation of chronic respiratory failure and atrial fibrillation RVR with acute diastolic on chronic diastolic heart failure. Viral screening on presentation was negative Allergies Allergy/AdvReac Type Severity Reaction Status Date / Time Sulfa (Sulfonamide Allergy Intermediate HEADACHE, Verified 07/25/22 16:55 Antibiotics) VERTIGO Home Medications Medication Instructions Recorded Confirmed Type lorazepam 0.5 mg tablet 0.5 mg PO TID PRN Anxiety 06/12/19 07/25/22 History aspirin 81 mg tablet,delayed 81 mg PO HS 07/02/19 07/25/22 History release (Adult Low Dose Aspirin) epoetin kole 40,000 unit/mL 40,000 unit subcut .q2w 60 days 07/15/21 07/25/22 Rx injection solution albuterol sulfate 90 mcg/actuation 2 puff inhalation Q6H PRN 11/30/21 07/25/22 Rx aerosol inhaler Shortness Of Breath Or Wheezing #18 grams budesonide-formoterol HFA 160 2 puff inhalation BID #10.2 grams 11/30/2107/25 Rx mcg-4.5 mcg/actuation aerosol inhaler (Symbicort) fluticasone propionate 50 1 spray intranasal DAILY #9.9 grams 11/30/21 07/25/22 Rx mcg/actuation nasal spray,suspension (Allergy Relief (fluticasone)) amlodipine 5 mg tablet 5 mg PO DAILY #90 tabs 02/26/22 07/25/22 Rx calcitriol 0.5 mcg capsule 0.5 mcg PO 3XWK 03/24/22 07/25/22 History diphenhydramine 25 2 tab PO HS 04/26/22 07/25/22 History mg-acetaminophen 500 mg tablet (Tylenol PM Extra Strength) meclizine 12.5 mg tablet 12.5 mg PO TID PRN dizziness #30 06/10/22 07/25/22 Rx tabs warfarin 3 mg tablet See Rx Instructions .Route .COMPLEX 06/16/22 07/25/22 History atorvastatin 20 mg tablet 20 mg PO HS 07/25/22 07/25/22 History paroxetine HCl 40 mg tablet 40 mg PO HS 07/25/22 07/25/22 History 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 Vitamin D deficiency Surgical History Hx of hysterectomy Family History Mother Blood clot in vein Father Myocardial infarction Sister Blood clot in vein Aunt Blood clot in vein Social History Smoking Status: Never smoker Second Hand Exposure: Yes (Long family history); Do You Dip or Chew Tobacco: No; Tobacco Cessation Education Requested by Patient: No Hx Alcohol Use: No Hx Substance Use: No Preferred Language: Lao Communication Ability: Effective Visual Impairment: Limited Hearing Ability: Use of Hearing Aid Clinical Evaluator Required: No Beliefs That Will Affect Care: None marital status: / Current Living Situation: Alone current occupational status: retired How many Children do You have: 3 Other Information That Helps Us Care for You: No Feels Safe at Home: Yes Safety Concerns: Feels Safe At This Time Childhood Exposure to Second-Hand Smoke: Yes caffeine: No Dental Care, Regularly: Yes Physical Activity Frequency: Does not Exercise Seatbelt Use: always Sunscreen Use: Yes Assistive Devices: Cane, Denture - Upper, Glasses, Hearing Aid - Bilateral and Walker Results & Data Results & Data ([facility]) Vital Signs (Past 12 Hours) Vital Signs Temp Pulse Pulse Resp BP BP Pulse Ox 07/25/22 16:30 112 H 21 141/83 H 94 07/25/22 16:00 116 H 20 132/85 94 07/25/22 15:30 117 H 22 125/85 96 07/25/22 15:43 118 H 20 125/85 100 07/25/22 15:19 96 07/25/22 15:19 96 07/25/22 14:48 97.0 F L 134 H 22 135/76 96 O2 Del Method 07/25/22 16:30 07/25/22 16:00 07/25/22 15:30 07/25/22 15:43 Room Air 07/25/22 15:19 Room Air 07/25/22 15:19 Room Air 07/25/22 14:48 Room Air Diagnostic Findings Chest X-Ray 07/25/22 15:16 XR chest 1V portable HISTORY: Dyspnea COMPARISON: Chest 06/12/2019. FINDINGS: No pneumothorax. There are trace bilateral pleural effusions and hazy bibasilar densities. The heart is mildly enlarged. There is progressive interstitial/vascular thickening likely representing mild congestive change. IMPRESSION: 1. Cardiomegaly with mild congestive change and trace bilateral pleural effusions. 2. Hazy bibasilar densities may represent the layering pleural effusions, atelectasis, or a developing pneumonia. ACT 112: Negative or not required by law. Electronically signed by: Crescencio Lynch M.D. 07/25/2022 3:30 PM ECG Additional Comments: ECG shows atrial fibrillation rapid ventricular response Code Status & VTE Plan VTE Prophylaxis Plan VTE Prophylaxis will be ordered: Yes PG Care Time/CCT Total # of Minutes Spent Total Time Spent with Patient: Total time spent is greater than 50% in coordination of care (as documented) at patient's floor/unit and/or counseling patient: Coding Level of Care Code 45187 Initial Inpt Care Lvl 3 Diagnoses SOB (shortness of breath) R06.02 Atrial fibrillation with rapid ventricular response I48.91 Stage 5 chronic kidney disease not on chronic dialysis N18.5 Anemia in CKD (chronic kidney disease) N18.9; D63.1 Hypercholesteremia E78.00 Anxiety F41.9
[2022-07-25 17:24] LABS: Appearance Urine Clear (Clear); Bilirubin Urine Negative (Negative); Blood Urine Negative (Negative); Color Urine Yellow; Glucose Urine UA Negative (Negative); Ketones Urine Negative (Negative); Leukocyte Esterase Urine Negative (Negative); Nitrite Urine Negative (Negative); Protein Urine Negative (Negative); Specific Gravity Urine 1.011 (1.000-1.030); Urobilinogen Urine Negative (Negative); pH Urine 5.5 (4.5-7.5)
[2022-07-25] MEDS ORDERED: ACETAMINOPHEN 325 MG TAB PO PRN (21:15)
[2022-07-25] MEDS ORDERED: METOPROLOL TARTRATE 1 MG/ML VIAL IV PRN (21:15)
[2022-07-25] MEDS ORDERED: ONDANSETRON INJ 2 MG/ML 2 ML VIAL IV PRN (21:15)
[2022-07-25] MEDS ORDERED: ALUMINUM/MAGNESIUM SUSP 30 ML UDC PO PRN (21:15)
[2022-07-25] MEDS: ALBUT/IPRATROP 3MG/0.5MG NEB 3 ML VIAL NEB SCH ×2 (22:06→22:08)
[2022-07-25] MEDS ORDERED: WARFARIN SOD 3 MG TAB PO SCH ×2 (22:15)
[2022-07-25] MEDS ORDERED: ALBUT/IPRATROP 3MG/0.5MG NEB 3 ML VIAL NEB PRN (22:33)
[2022-07-25] MEDS: ATORVASTATIN 20 MG TAB PO SCH (22:56)
[2022-07-25] MEDS: methylPREDNISolone 40 MG in SYRINGE 0 ML IV SCH (22:56)
[2022-07-25] MEDS: PARoxetine HCL 20 MG TAB PO SCH (23:01)
[2022-07-26] MEDS: dilTIAZem HCL 125 MG in DEXTROSE 5% 100 ML IV SCH ×2 (06:01→16:38)
[2022-07-26] MEDS ORDERED: ALBUT/IPRATROP 3MG/0.5MG NEB 3 ML VIAL NEB SCH (07:00)
[2022-07-26 07:11] LABS: Hematocrit (blood only) 29.2 % (34.1-44.9); Hemoglobin 9.3 g/dl (12.0-16.0); Mean Corpuscular Hemoglobin 25.8 pg (25.0-34.0); Mean Corpuscular Hgb Conc 31.8 g/dL (32.0-36.0); Mean Corpuscular Volume 81.1 fL (80.0-100.0); Mean Platelet Volume 9.6 fL (9.4-12.3); Platelet Count 250 K/uL (130-400); RDW Coefficient of Variation 17.6 % (11.5-14.5); RDW Standard Deviation 51.8 fL (36.4-46.3); White Blood Count 3.29 K/ul (4.8-10.8)
[2022-07-26 07:21] LABS: INR 2.9 (0.9-1.1); Prothrombin Time 28.9 Seconds (9.0-12.0)
[2022-07-26 08:13] LABS: BUN Creatinine Ratio 11.9 (10-20); Calcium 8.9 mg/dl (8.5-10.1); Creatinine Clr Calc Pharmacy 13.1 ml/min; Est GFR (African American) 13.8 ml/min; Est GFR (Non-African American) 11.9 ml/min; Magnesium 2.1 mg/dl (1.7-2.4); Potassium 4.2 mmol/L (3.5-5.1)
[2022-07-26] MEDS: FLUTICASONE/VILANTEROL 200/25MCG 14 PUFFS/INHALER INH SCH (09:05)
[2022-07-26] MEDS: methylPREDNISolone 40 MG in SYRINGE 0 ML IV SCH ×2 (09:06→20:59)
[2022-07-26] MEDS: amLODIPine BESYLATE 5 MG TAB PO SCH (09:06)
[2022-07-26] MEDS: ASPIRIN 81 MG ECTAB PO SCH (09:06)
--- NOTE | 2022-07-26 09:28 | Hospitalist Progress Note ---
Date of Service July 26, 2022 Assessment & Plan (1) SOB (shortness of breath): Plan: Attending: Dr. Jones Impression: Is an 82-year-old female that was admitted on 07/25/2022 with shortness of breath. This appears to be multifactorial including chronic diastolic heart failure with atrial fibrillation with rapid ventricular response. Patient was given intravenous Solu-Medrol as well as furosemide and started on diltiazem drip for rate control. This improved patient's overall symptoms. She had no overnight events. She does continue in atrial fib rillation with a rate in the low 90s. She is on diltiazem drip. This was started at 10 mg/h and increase this morning 9 AM to 15 mg/h. Patient has no awareness of tachyarrhythmia and no chest pain. She follows with Dr. Cosby as an outpatient Patient is currently doing well on room airWith no shortness of breath. She has not ambulated. We will encourage ambulation to see if she has dyspnea with exertion. Continue rate control for atrial fibrillation She appears to be fairly euvolemic Continue to monitorSaO2 MaintainSupplemental oxygen to maintain SaO2 greater than 90% (2) Atrial fibrillation with rapid ventricular response: Plan: Patient follows with Dr. Cosby as an outpatient Outpatient medications do not seem to include any beta-blockers or rate control medications or anti-arrhythmic medications Patient history seems to include CHF as well as paroxysmal SVT Outpatient medications include amlodipine only Patient started on diltiazem drip in the emergency department. This will be converted to p.o. tonight and patient will be monitored overnight for rate control Patient is a fairly poor historian and is unable to tell me if she is ever been on a beta-roxie or antiarrhythmic drug in the past. May require cardiology consult for the very least follow-up on discharge (3) Anemia in CKD (chronic kidney disease): Plan: Stable HgB baseline in in the 9gm/dL range Currently 9.3 No active bleeding (4) Hypercholesteremia: Plan: Continue Atorvastatin (5) Asthma-COPD overlap syndrome: Plan: Follows with Dr. Castaneda as an outpatient Continue Symbicort PRN Nebulizer treatment No acute exacerbation (6) Chronic anticoagulation: Plan: Hx multiple bilateral PE (06/09/19); hx dvt provoked, retinal AA thrombosis Patient is on chronic coumadin and followed by the coumadin clinic Continue 3mg PO Daily for 6 days as recommended by the coumadin clinic INR therapeutic at 2.9 Plan DVT prophylaxis: Patient anticoagulated with Coumadin with an INR 2.9 Admission and Anticipated Discharge Date Admission Date: July 25, 2022 Supervising Physician Co-Signing Physician Notes chart reviewed and case d/w E Jacklyn PAC, as above Subjective Attending: Dr. Duong This is an 82-year-old female that was admitted yesterday for shortness of breath, atrial fibrillation with rapid ventricular response, chronic diastolic heart failure, stage V chronic kidney disease not on dialysis, anemia, hypercholesterolemia, anxiety. Patient presented with shortness of breath which she reportedly had worsening for the past few days. She has a history of COPD and use her home inhalers without improvement. proBNP was elevated at 1000 PG/mL (10 times high normal). She is not on any diuretics at home. She was given 40 mg of IV furosemide. In spite of the IV diuretics, she is only -98 mL since admission. Chest x-ray yesterday revealed cardiomegaly with congestive change and trace bilateral pleural effusions. There is also mention of hazy bibasilar densities which may be layering pleural effusions, atelectasis, or developing pneumonia. WBCs are not elevated. Patient is afebrile. She is currently saturating 96% on room air. Regarding her atrial fibrillation, her heart rate is currently 99 bpm. INR is within therapeutic range at 2.9. Patient is currently on diltiazem (Cardizem) drip. Echocardiogram is pending. She follows with Dr. Yousif in the outpatient clinic. Cardiac event monitor 05/31/2022 revealed SVT 45 times with longest episode being 29 beats. Maximal heart rate at that time was 164 bpm. Follows with the Coumadin clinic. Last appointment 07/12/2022. Continue Coumadin 3 mg 6 days a week. Severe mitral regurgitation. Patient has not been followed by echocardiogram since 2005. She has 2+ mitral regurgitation with no evidence of pulmonary hypertension. Last seen by Dr. Dixon 04/07/2022 Regarding her chronic kidney disease, creatinine appears to be at baseline at 3.44. Sodium and potassium are within normal limits. Magnesium was 2.1 Regarding her COPD, she follows with Dr. Castaneda in the outpatient office. She is currently on scheduled Symbicort and albuterol as needed. Most recent pulmonary function tests are from 08/02/2019. They reveal mild obstructive dysfunction with an FEV1 of 69% and a DLCO of 179% of predicted. No tobacco abuse history. Review of Systems Review of Systems: A total of 10 systems was reviewed and is negative other than as listed in the HPI Physical Exam Physical Exam: GENERAL : No acute distress EYES: No icterus, gaze conjugate NOSE: No evidence of epistaxis MOUTH: No lesions or candidiasis NECK: Supple LUNGS: CTA B/L, no wheezes, rales or rhonchi HEART: irregular, irregular, rate controlled with diltiazem gtt ABDOMEN: Soft, NT, ND, BS Present EXTREMITIES: No LE edema, pedal pulses intact NEURO: A&OX3. Very hard of hearing Results & Data Results & Data ([facility]) Vital Signs (Past 12 Hours) Vital Signs Temp Pulse Resp BP Pulse Ox O2 Del Method 07/26/22 07:14 99 H 18 96 Room Air 07/26/22 03:59 36.5 C 102 H 18 135/77 97 Room Air 07/25/22 22:06 115 H 18 94 Room Air 07/25/22 23:24 36.8 C 134 H 18 128/71 94 Room Air 07/25/22 21:30 36.8 C 121 H 20 129/73 94 Room Air Critical Care Results & Data Vital Signs (Past 12 Hours) Vital Signs Temp Pulse Resp BP Pulse Ox O2 Del Method 07/26/22 07:14 99 H 18 96 Room Air 07/26/22 03:59 36.5 C 102 H 18 135/77 97 Room Air 07/25/22 22:06 115 H 18 94 Room Air 07/25/22 23:24 36.8 C 134 H 18 128/71 94 Room Air 07/25/22 21:30 36.8 C 121 H 20 129/73 94 Room Air Lab & Micro Results (Past 24 Hours) RBC 3.44 M/uL (3.93-5.22) L 07/27/22 WBC 10.12 K/ul (4.8-10.8) 07/27/22 Hgb 9.0 g/dl (12.0-16.0) L 07/27/22 Hct 28.1 % (34.1-44.9) L 07/27/22 MCV 81.7 fL (80.0-100.0) 07/27/22 MCH 26.2 pg (25.0-34.0) 07/27/22 MCHC 32.0 g/dL (32.0-36.0) 07/27/22 RDW Standard Deviation 52.4 fL (36.4-46.3) H 07/27/22 RDW Coefficient of Variation 17.8 % (11.5-14.5) H 07/27/22 Plt Count 284 K/uL (130-400) 07/27/22 MPV 9.9 fL (9.4-12.3) 07/27/22 Nucleated Red Blood Cells % (auto) 0.3 % 07/27 Nucleated RBC Absolute Count (auto) 0.03 K/uL (0-0) H 10/14 Na 129 mmol/L (136-145) L 07/27/22 K 5.2 mmol/L (3.5-5.1) H 07/27/22 Cl 95 mmol/L (98-107) L 07/27/22 CO2 21 mmol/L (21-32) 07/27/22 Anion Gap 13 (3-11) H 07/27/22 BUN 70 mg/dl (6-23) H 07/27/22 Creatinine 5.68 mg/dl (0.6-1.2) H* 07/27/22 Estimated GFR ( Amer) 7.5 ml/min 07/27/22 Estimated GFR (Non-Af Amer) 6.5 ml/min 07/27/22 BUN/Creatinine Ratio 12.3 (10-20) 07/27/22 Glu 338 mg/dl (70-99(Fasting)) H* 07/27/22 Ca 9.4 mg/dl (8.5-10.1) 07/27/22 Mg 2.5 mg/dl (1.7-2.4) H 07/27/22 07:01 Calcium Level 9.4 mg/dl (8.5-10.1) 07/27/22 14:33 Prothromb Time International Ratio 4.0 (0.9-1.1) H 07/27/22 07 :01 Diagnostic Findings (Past 24 Hours) Chest X-Ray 07/25/22 15:16 XR chest 1V portable HISTORY: Dyspnea COMPARISON: Chest 06/12/2019. FINDINGS: No pneumothorax. There are trace bilateral pleural effusions and hazy bibasilar densities. The heart is mildly enlarged. There is progressive interstitial/vascular thickening likely representing mild congestive change. IMPRESSION: 1. Cardiomegaly with mild congestive change and trace bilateral pleural effusions. 2. Hazy bibasilar densities may represent the layering pleural effusions, atelectasis, or a developing pneumonia. ACT 112: Negative or not required by law. Electronically signed by: Crescencio Lynch M.D. 07/25/2022 3:30 PM I & O Totals 24 Hours 07/25/22 07/26/22 07/27/22 06:59 06:59 06:59 Intake Total 901.666 / 901.666 Output Total 1000 / 1000 Balance -98.334 / -98.334 Cumulative 07/25/22 14:42 thru 07/26/22 06:01 Intake Total 901.666 Output Total 1000 Balance -98.334 RT Ventilator Mngmt (Last Documented) Ventilator Ordered Settings Respiratory Rate 18 07/26/22 07:14 Ventilator - PT Measurements Respiratory Rate 18 PG Care Time/CCT Total # of Minutes Spent Total Time Spent with Patient: Total time spent is greater than 50% in coordination of care (as documented) at patient's floor/unit and/or counseling patient: Coding Level of Care Code 64593 SUB INP/OBS CARE 2/35MIN Diagnoses SOB (shortness of breath) R06.02 Atrial fibrillation with rapid ventricular response I48.91 Anemia in CKD (chronic kidney disease) N18.9; D63.1 Hypercholesteremia E78.00 Asthma-COPD overlap syndrome J44.9 Chronic anticoagulation Z79.01
--- NOTE | 2022-07-26 16:43 | XCELERA ---
[id number]
--- NOTE | 2022-07-26 18:55 | Electrocardiogram Report ---
Test Reason : Blood Pressure : / mmHG Vent. Rate : 132 BPM Atrial Rate : 083 BPM P-R Int : 000 ms QRS Dur : 074 ms QT Int : 328 ms P-R-T Axes : 000 041 041 degrees QTc Int : 485 ms Atrial fibrillation with rapid ventricular response Nonspecific ST abnormality Abnormal ECG When compared with ECG of 03-JAN-2022 00:20, Atrial fibrillation has replaced Sinus rhythm Vent. rate has increased BY 44 BPM Nonspecific T wave abnormality now evident in Inferior leads Nonspecific T wave abnormality now evident in Lateral leads Confirmed by Mitul Barry ([id number]) on 07/26/2022 6:55:26 PM Referred By: Soledad Meier Confirmed By:Aram Barry
--- NOTE | 2022-07-26 19:02 | Electrocardiogram Report ---
Test Reason : Blood Pressure : / mmHG Vent. Rate : 102 BPM Atrial Rate : 141 BPM P-R Int : 000 ms QRS Dur : 078 ms QT Int : 390 ms P-R-T Axes : 000 050 106 degrees QTc Int : 508 ms Atrial fibrillation with rapid ventricular response Low voltage QRS Nonspecific T wave abnormality Abnormal ECG When compared with ECG of 25-JUL-2022 14:57, (unconfirmed) No significant change was found Confirmed by Mitul Barry ([id number]) on 07/26/2022 7:02:25 PM Referred By: Soledad Meier Confirmed By:Aram Barry
[2022-07-26] MEDS: ATORVASTATIN 20 MG TAB PO SCH (20:58)
[2022-07-26] MEDS: PARoxetine HCL 20 MG TAB PO SCH (20:58)
[2022-07-26] MEDS: CALCITRIOL 0.25 MCG CAPSULE PO SCH (20:59)
[2022-07-26] MEDS: dilTIAZem HCL 180 MG CAPCR PO SCH (20:59)
[2022-07-26] MEDS: LORazepam 0.5 MG TAB PO PRN (22:27)
[2022-07-27 07:14] LABS: Hematocrit (blood only) 28.1 % (34.1-44.9); Mean Corpuscular Hemoglobin 26.2 pg (25.0-34.0); Mean Corpuscular Volume 81.7 fL (80.0-100.0); Mean Platelet Volume 9.9 fL (9.4-12.3); Nucleated RBC # (auto) 0.03 K/uL (0-0); Nucleated RBC % (auto) 0.3 %; Platelet Count 284 K/uL (130-400); RDW Coefficient of Variation 17.8 % (11.5-14.5); RDW Standard Deviation 52.4 fL (36.4-46.3); Red Blood Count 3.44 M/uL (3.93-5.22); White Blood Count 10.12 K/ul (4.8-10.8)
[2022-07-27] MEDS: dilTIAZem HCL 125 MG in DEXTROSE 5% 100 ML IV SCH (07:18)
[2022-07-27 07:44] LABS: BUN Creatinine Ratio 13.6 (10-20); Calcium 8.8 mg/dl (8.5-10.1); Creatinine Clr Calc Pharmacy 9.4 ml/min; Est GFR (African American) 9.2 ml/min; Est GFR (Non-African American) 7.9 ml/min; Magnesium 2.5 mg/dl (1.7-2.4); Potassium 4.7 mmol/L (3.5-5.1)
[2022-07-27 07:45] LABS: Prothrombin Time 39.5 Seconds (9.0-12.0)
[2022-07-27] MEDS: methylPREDNISolone 40 MG in SYRINGE 0 ML IV SCH (08:16)
[2022-07-27] MEDS: FLUTICASONE/VILANTEROL 200/25MCG 14 PUFFS/INHALER INH SCH (08:16)
[2022-07-27] MEDS: amLODIPine BESYLATE 5 MG TAB PO SCH (08:17)
[2022-07-27] MEDS: dilTIAZem HCL 180 MG CAPCR PO SCH (08:17)
[2022-07-27] MEDS: ASPIRIN 81 MG ECTAB PO SCH (08:17)
[2022-07-27] MEDS ORDERED: BUDESONIDE/FORMOTEROL FUMARATE 160/4.5 60 PUFFS/INHALER INH SCH (09:00)
--- NOTE | 2022-07-27 12:47 | Electrocardiogram Report ---
Test Reason : Blood Pressure : / mmHG Vent. Rate : 080 BPM Atrial Rate : 084 BPM P-R Int : 000 ms QRS Dur : 084 ms QT Int : 412 ms P-R-T Axes : 000 053 069 degrees QTc Int : 475 ms Atrial fibrillation Abnormal ECG When compared with ECG of 26-JUL-2022 05:11, Nonspecific T wave abnormality no longer evident in Lateral leads Confirmed by Shamar Rubalcava ([id number]) on 07/27/2022 12:47:46 PM Referred By: Soledad Meier Confirmed By:Shamar Rubalcava
[2022-07-27] MEDS ORDERED: CARBOHYDRATES FOR HYPOGLYCEMIA PO PRN ×2 (13:41→16:38)
[2022-07-27] MEDS ORDERED: GLUCAGON FOR INJ 1 MG VIAL SQ PRN ×2 (13:41→16:38)
[2022-07-27] MEDS ORDERED: GLUCOSE 10 TAB/TUBE PO PRN ×2 (13:41→16:38)
[2022-07-27] MEDS ORDERED: DEXTROSE 50% 50 ML SYRINGE IV PRN ×2 (13:41→16:38)
[2022-07-27] MEDS ORDERED: GLUCOSE 40% GEL 15 GM TUBE PO PRN ×2 (13:41→16:38)
[2022-07-27 15:40] LABS: BUN Creatinine Ratio 12.3 (10-20); Calcium 9.4 mg/dl (8.5-10.1); Est GFR (African American) 7.5 ml/min; Est GFR (Non-African American) 6.5 ml/min; Potassium 5.2 mmol/L (3.5-5.1)
[2022-07-27] MEDS ORDERED: INSULIN ASPART PER UNIT SC SCH (16:30)
[2022-07-27] MEDS ORDERED: PHARMACY GLYCEMIC MGMT CONSULT PRN (16:38)
[2022-07-27] MEDS ORDERED: LANTUS PER UNIT CHARGE SQ SCH (16:45)
[2022-07-27] MEDS: INSULIN ASPART PER UNIT SC SCH (17:02)
--- NOTE | 2022-07-27 17:08 | Hospitalist Progress Note ---
Date of Service July 27, 2022 Assessment & Plan (1) SOB (shortness of breath): Plan: Attending: Dr. Sow Impression: Is an 82-year-old female that was admitted on 07/25/2022 with shortness of breath. This appears to be multifactorial including chronic diastolic heart failure with atrial fibrillation with rapid ventricular response. Patient was given intravenous Solu-Medrol as well as furosemide and started on diltiazem drip for rate control. This improved patient's overall symptoms. She had no overnight events. She does continue in atrial fibril lation with a rate in the 80s. She is on diltiazem and was converted from IV drip to p.o. last night. Patient has no awareness of tachyarrhythmia and no chest pain. She follows with Dr. Dixon as an outpatient. Patient had a bump in her creatinine this morning. Repeat labs this afternoon show worsening acute kidney injury and developing hyperglycemia. Most recent hemoglobin A1c is 5.9% from January 03, 2022. Patient has no history of insulin-dependent diabetes. Patient is currently doing well on room air with no shortness of breath. moving around the room, she denies any significant dyspnea with exertion. Continue rate control for atrial fibrillation. Currently in the 80s on dilti azem 360 mg p.o. Continue to monitorSaO2 Maintain supplemental oxygen to maintain SaO2 greater than 90% Continue incentive spirometry and maintain negative fluid balance (2) Acute on chronic renal failure: Plan: Patient with stage V chronic kidney disease. Patient has never required hemodialysis but does have a mature fistula in the left forearm Baseline creatinine 3.6 Creatinine bumped to 4.2 this morning and on repeat labs this afternoon bumped to 5.68 Potassium also increased to 5.2 and sodium decreased to 129 Patient also with increased glucose and now requiring insulin with no history of diabetes. Patient continues with adequate urine output but is beginning to feel ill. Currently 1.1 L positive since admission Check renal ultrasound Consult nephrology. Discussed personally with Dr. Callahan. Appreciate his input Follow serial labs (3) Atrial fibrillation with rapid ventricular response: Plan: Patient follows with Dr. Dixon as an outpatient Outpatient medications do not seem to include any beta-blockers or rate control medications or anti-arrhythmic medications Patient history seems to include CHF as well as paroxysmal SVT Outpatient medications include amlodipine only Patient started on diltiazem drip in the emergency department. This was converted to p.o. last night. Patient continues in A. Fib but is rate controlled in the 80s. Continue to monitor on telemetry Patient is a fairly poor historian and is unable to tell me if she is ever been on a beta-roxie or antiarrhythmic drug in the past. Cardiology follow-up on discharge (4) Anemia in CKD (chronic kidney disease): Plan: Stable HgB baseline in in the 9gm/dL range Currently 9.0 No active bleeding Monitor serial labs (5) Hypercholesteremia: Plan: Continue Atorvastatin (6) Asthma-COPD overlap syndrome: Plan: Follows with Dr. Castaneda as an outpatient Continue Symbicort PRN Nebulizer treatment No acute exacerbation (7) Chronic anticoagulation: Plan: Hx multiple bilateral PE (06/09/19); hx dvt provoked, retinal AA thrombosis Patient is on chronic coumadin and followed by the coumadin clinic Continue 3mg PO Daily for 6 days as recommended by the coumadin clinic INR therapeutic Continue coumadin Plan DVT prophylaxis: Patient anticoagulated with Coumadin with an INR 4.0 today. Admission and Anticipated Discharge Date Admission Date: July 25, 2022 Supervising Physician Co-Signing Physician Notes Attending Attestation - Chart reviewed in detail, care plan d/w ENEDINA Villasenor. I agree w/ the wooten components of his documentation. I also discussed the pt's care with nephrology, Dr Kevin Callahan. Alberto Sow MD Subjective Attending: Dr. Sow Patient seen and examined in room 222. She states that she is feeling better. She got cleaned up today and is sitting in bedside chair. No complaints with shortness of breath. No abdominal pain. No flank pain. Patient denies any nausea or vomiting. She was converted from IV diltiazem last night to p.o. and is maintaining a rate in the 80s although she remains in atrial fibrillation. She continues to report good urine output. She has no hematuria. No other acute complaints. Review of Systems Review of Systems: A total of 10 systems was reviewed and is negative other than as listed in the HPI Physical Exam Physical Exam: GENERAL : No acute distress EYES: No icterus, gaze conjugate NOSE: No evidence of epistaxis MOUTH: No lesions or candidiasis NECK: Supple LUNGS: CTA B/L, no wheezes, rales or rhonchi HEART: irregular, irregular, rate controlled with diltiazem gtt ABDOMEN: Soft, NT, ND, BS Present EXTREMITIES: No LE edema, pedal pulses intact NEURO: A&OX3. Very hard of hearing Results & Data Results & Data ([facility]) Vital Signs (Past 12 Hours) Vital Signs Temp Pulse Resp BP Pulse Ox O2 Del Method 07/27/22 15:27 36.6 C 61 16 107/66 93 Room Air 07/27/22 09:45 36.7 C 90 16 128/69 94 Room Air 07/27/22 08:00 Room Air Critical Care Results & Data Vital Signs (Past 12 Hours) Vital Signs Temp Pulse Resp BP Pulse Ox O2 Del Method 07/27/22 15:27 36.6 C 61 16 107/66 93 Room Air 07/27/22 09:45 36.7 C 90 16 128/69 94 Room Air 07/27/22 08:00 Room Air Lab & Micro Results (Past 24 Hours) RBC 3.32 M/uL (3.93-5.22) L 08/04/22 WBC 6.47 K/ul (4.8-10.8) 08/04/22 Hgb 8.7 g/dl (12.0-16.0) L 08/04/22 Hct 26.9 % (34.1-44.9) L 08/04/22 MCV 81.0 fL (80.0-100.0) 08/04/22 MCH 26.2 pg (25.0-34.0) 08/04/22 MCHC 32.3 g/dL (32.0-36.0) 08/04/22 RDW Standard Deviation 53.8 fL (36.4-46.3) H 08/04/22 RDW Coefficient of Variation 19.1 % (11.5-14.5) H 08/04/22 Plt Count 326 K/uL (130-400) 08/04/22 MPV 9.2 fL (9.4-12.3) L 08/04/22 Na 134 mmol/L (136-145) L 08/04/22 K 3.6 mmol/L (3.5-5.1) 08/04/22 Cl 99 mmol/L (98-107) 08/04/22 CO2 27 mmol/L (21-32) 08/04/22 Anion Gap 8 (3-11) 08/04/22 BUN 75 mg/dl (6-23) H 08/04/22 Creatinine 5.90 mg/dl (0.6-1.2) H* 08/04/22 Estimated GFR ( Amer) 7.2 ml/min 08/04/22 Estimated GFR (Non-Af Amer) 6.2 ml/min 08/04/22 BUN/Creatinine Ratio 12.7 (10-20) 08/04/22 Glu 100 mg/dl (70-99(Fasting)) H 08/04/22 Ca 8.0 mg/dl (8.5-10.1) L 08/04/22 2 Calcium Level 8.0 mg/dl (8.5-10.1) L 08/04/22 05:54 Prothromb Time International Ratio 2.3 (0.9-1.1) H 08/04/22 05 :54 Microbiology 07/25/22 15:36 Aerobic Blood Culture - Preliminary Blood No growth in Aerobic bottle after 48 hours. Anaerobic Blood Culture - Preliminary No growth in Anaerobic bottle after 48 hours. 07/25/22 15:05 Aerobic Blood Culture - Preliminary Blood No growth in Aerobic bottle after 48 hours. Anaerobic Blood Culture - Preliminary No growth in Anaerobic bottle after 48 hours. I & O Totals 24 Hours 07/26/22 07/27/22 07/28/22 06:59 06:59 06:59 Intake Total 901.666 / 840.284 1227.250 / 1884.250 240 / 240 Output Total 1000 / 1000 925 / 925 Balance -98.334 / -98.334 959.250 / 959.250 240 / 240 Cumulative 07/25/22 14:42 thru 07/27/22 15:27 Intake Total 3025.916 Output Total 1925 Balance 1100.916 RT Ventilator Mngmt (Last Documented) Ventilator Ordered Settings Respiratory Rate 16 07/27/22 15:27 Ventilator - PT Measurements Respiratory Rate 16 PG Care Time/CCT Total # of Minutes Spent Total Time Spent with Patient: Total time spent is greater than 50% in coordination of care (as documented) at patient's floor/unit and/or counseling patient: Coding Level of Care Code 39398 SUB INP/OBS CARE 3/50MIN Diagnoses SOB (shortness of breath) R06.02 Acute on chronic renal failure N17.9; N18.9 Atrial fibrillation with rapid ventricular response I48.91 Anemia in CKD (chronic kidney disease) N18.9; D63.1 Hypercholesteremia E78.00 Asthma-COPD overlap syndrome J44.9 Chronic anticoagulation Z79.01
--- NOTE | 2022-07-27 18:47 | Nephrology Consultation ---
Date of Consultation July 27, 2022 Assessment & Plan (1) Acute on chronic renal failure: Oliguric since this AM. Renal US pending. Bladder scan did not demonstrate notable retention. Clinical presentation suggestive of hypoperfusion injury in the setting of AF/RVR. Volume status acceptable. Electrolytes normal. 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 (2) Stage 5 chronic kidney disease not on chronic dialysis: Baseline creatinine 3.0-3.8 mg/dL. Etiology unclear. UA on admission bland. AVF mature for use with good thrill and bruit. Planning in-centre HD if indicated. Medications appropriately dosed for kidney dysfunction. (3) Anemia in CKD (chronic kidney disease): Check iron profile in AM. Maintained on Epogen as outpatient. Additional JOSHUA therapy will be provided tomorrow. (4) Secondary hyperparathyroidism of renal origin: Continue calcitriol as Rx. Serum calcium normal. (5) Atrial fibrillation with rapid ventricular response: Regular and acceptable rate. BP acceptable. Tolerating therapy well. (6) Pulmonary hypertension: Not decompensated on exam. Additional diuretics held. History of Present Illness Reason for Consultation: TUCKER/CKD Requesting Physician: Alberto Sow Attending Physician: Alberto Sow History of Present Illness Martha Raygoza is an 82 year-old female with CKD IV A2-3. Baseline creatinine ~3.1- 3.8 mg/dL. The cause of her CKD has not been clear. She developed progressive kidney dysfunction a couple years ago in the setting of recurrent UTI and antibiotic therapy. Clinical history suggestive of underlying AIN. Martha has followed in the nephrology clinic with Dr. Rivas. She has received predialysis education. Martha's sister was on home dialysis and Martha does not feel that this would work for her. She has had predialysis planning for in-centre HD, if needed. A left arm AVF was placed by Dr. Pascual in 2019. However, kidney function has thankfully remained stable. She has not had issues with fluid retention or any notable electrolyte abnormalities. Martha presented to [facility] on July 26 with a serum creatinine of 3.4 mg/dL. She presented for evaluation of dyspnea. Evaluation was notable for atrial fibrillation with RVR. Rate control achieved with diltiazem gtt converted to PO diltiazem. She is in a regular bradycardic rhythm currently. BP has been slightly low but acceptable. She feels well this evening. Martha was seen and evaluated with her granddaughter at the bedside. Her granddaughter is a nurse. A bladder scan was attempted at the time of assessment but not successful in identifying any urine in the bladder. Martha is now being sent for a renal US. She last voided this morning. Martha received a one time dose of Lasix upon presentation to the hospital and reports brisk urine output. She did not have any concerning urinary symptoms or change in urine output prior to today. 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 She is maintained on calcitriol 3 x per week. She is treated with Epogen for anemia. Urine sediment remains bland. Microscopy has always been acellular. 24 hour urine previously demonstrating 280 mg with a faint monoclonal band in the beta region. UA negative for protein. Martha has not had hypercalcemia. Kidney biopsy was previously arranged but opted to defer due to stable kidney function. Allergies Allergy/AdvReac Type Severity Reaction Status Date / Time Sulfa (Sulfonamide Allergy Intermediate HEADACHE, Verified 07/25/22 16:55 Antibiotics) VERTIGO Home Medications Medication Instructions Recorded Confirmed Type lorazepam 0.5 mg tablet 0.5 mg PO TID PRN Anxiety 06/12/19 07/25/22 History aspirin 81 mg tablet,delayed 81 mg PO HS 07/02/19 07/25/22 History release (Adult Low Dose Aspirin) epoetin kole 40,000 unit/mL 40,000 unit subcut .q2w 60 days 07/15/21 07/25/22 Rx injection solution albuterol sulfate 90 mcg/actuation 2 puff inhalation Q6H PRN 11/30/21 07/25/22 Rx aerosol inhaler Shortness Of Breath Or Wheezing #18 grams budesonide-formoterol HFA 160 2 puff inhalation BID #10.2 grams 11/30/21 07/25/22 Rx mcg-4.5 mcg/actuation aerosol inhaler (Symbicort) fluticasone propionate 50 1 spray intranasal DAILY #9.9 grams 11/30/21 07/25/22 Rx mcg/actuation nasal spray,suspension (Allergy Relief (fluticasone)) amlodipine 5 mg tablet 5 mg PO DAILY #90 tabs 02/26/22 07/25/22 Rx calcitriol 0.5 mcg capsule 0.5 mcg PO 3XWK 03/24/22 07/25/22 History diphenhydramine 25 2 tab PO HS 04/26/22 07/25/22 History mg-acetaminophen 500 mg tablet (Tylenol PM Extra Strength) meclizine 12.5 mg tablet 12.5 mg PO TID PRN dizziness #30 06/10/22 07/25/22 Rx tabs warfarin 3 mg tablet See Rx Instructions .Route .COMPLEX 06/16/22 07/25/22 History atorvastatin 20 mg tablet 20 mg PO HS 07/25/22 07/25/22 History paroxetine HCl 40 mg tablet 40 mg PO HS 07/25/22 07/25/22 History Patient History Medical History Anxiety Bilateral pulmonary embolism Central retinal artery occlusion, left eye Chronic anticoagulation Hypercholesteremia Mixed conductive and sensorineural hearing loss of left ear with restricted hearing of right ear Recurrent UTI 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 Severe mitral regurgitation Stage 5 chronic kidney disease not on chronic dialysis Vitamin D deficiency Surgical History Hx of hysterectomy Family History Mother Blood clot in vein Father Myocardial infarction Sister Blood clot in vein Aunt Blood clot in vein Social History Smoking Status: Never smoker Second Hand Exposure: Yes (Long family history); Do You Dip or Chew Tobacco: No; Tobacco Cessation Education Requested by Patient: No Hx Alcohol Use: No Hx Substance Use: No Preferred Language: Liberian Communication Ability: Effective Visual Impairment: Limited Hearing Ability: Use of Hearing Aid Webfed Offset Press Operator Required: No Beliefs That Will Affect Care: None marital status: / Current Living Situation: Alone current occupational status: retired How many Children do You have: 3 Other Information That Helps Us Care for You: No Feels Safe at Home: Yes Safety Concerns: Feels Safe At This Time Childhood Exposure to Second-Hand Smoke: Yes caffeine: No Dental Care, Regularly: Yes Physical Activity Frequency: Does not Exercise Seatbelt Use: always Sunscreen Use: Yes Assistive Devices: Cane and Walker Review of Systems Review of Systems: All systems reviewed & are unremarkable except as noted in HPI & below Genitourinary: no dysuria, no difficulty urinating and no hematuria Physical Exam Constitutional: well developed; no acute distress Eyes: no scleral abnormality and no corneal abnormality ENMT: Mouth: no oral mucosal abnormality and oral mucous membranes not dry Neck: normal visual inspection and trachea midline Respiratory: normal respiratory effort Auscultation: lungs clear to auscultation bilaterally Cardiovascular: Rate/Rhythm: regular rate and + bradycardic Heart Sounds: normal S1 and normal S2 Extremities: + edema and + AV fistula Musculoskeletal: Extremities: no cyanosis and no clubbing Skin: + turgor decreased; no jaundice Neurologic: Motor/Sensory: no tremor and no asterixis Psychiatric: Orientation: alert and oriented x 3 Results & Data ([facility]) Vital Signs (Past 12 Hours) Vital Signs Temp Pulse Resp BP Pulse Ox O2 Del Method 07/27/22 15:27 36.6 C 61 16 107/66 93 Room Air 07/27/22 09:45 36.7 C 90 16 128/69 94 Room Air 07/27/22 08:00 Room Air Laboratory Results Laboratory Results - last 24 hr 07/27/22 07/27/22 07/27/22 07:01 07:01 07:01 WBC 10.12 RBC 3.44 L Hgb 9.0 L Hct 28.1 L MCV 81.7 MCH 26.2 MCHC 32.0 RDW Std Deviation 52.4 H RDW Coeff of Alice 17.8 H Plt Count 284 MPV 9.9 Absolute Nucleated RBC 0.03 H Nucleated RBC % (auto) 0.3 PT 39.5 H INR 4.0 H Sodium 131 L Potassium 4.7 Chloride 97 L Carbon Dioxide 23 Anion Gap 11 BUN 66 H D Creatinine 4.84 H* D Est Cr Clr Drug Dosing 9.4 Est GFR ( Amer) 9.2 Est GFR (Non-Af Amer) 7.9 BUN/Creatinine Ratio 13.6 Glucose 228 H POC Glucose Calcium 8.8 Magnesium 2.5 H 07/27/22 07/27/22 07/27/22 14:33 16:17 16:18 WBC RBC Hgb Hct MCV MCH MCHC RDW Std Deviation RDW Coeff of Alice Plt Count MPV Absolute Nucleated RBC Nucleated RBC % (auto) PT INR Sodium 129 L Potassium 5.2 H Chloride 95 L Carbon Dioxide 21 Anion Gap 13 H BUN 70 H Creatinine 5.68 H* D Est Cr Clr Drug Dosing 8.0 Est GFR ( Amer) 7.5 Est GFR (Non-Af Amer) 6.5 BUN/Creatinine Ratio 12.3 Glucose 338 H* POC Glucose 376 H* 324 H* Calcium 9.4 Magnesium 07/27/22 07/27/22 16:19 18:06 WBC RBC Hgb Hct MCV MCH MCHC RDW Std Deviation RDW Coeff of Alice Plt Count MPV Absolute Nucleated RBC Nucleated RBC % (auto) PT INR Sodium Potassium Chloride Carbon Dioxide Anion Gap BUN Creatinine Est Cr Clr Drug Dosing Est GFR ( Amer) Est GFR (Non-Af Amer) BUN/Creatinine Ratio Glucose POC Glucose 351 H* 324 H* Calcium Magnesium PG Care Time/CCT Total # of Minutes Spent Total Time Spent with Patient: Total time spent is greater than 50% in coordination of care (as documented) at patient's floor/unit and/or counseling patient: Coding Level of Care Code INP/OBS CONSULT LVL 4, 60 MIN Diagnoses Acute on chronic renal failure N17.9; N18.9 Stage 5 chronic kidney disease not on chronic dialysis N18.5 Anemia in CKD (chronic kidney disease) N18.9; D63.1 Secondary hyperparathyroidism of renal origin N25.81 Atrial fibrillation with rapid ventricular response I48.91 Pulmonary hypertension I27.20
[2022-07-27] MEDS ORDERED: INSULIN HUMAN REGULAR PER UNIT 5 UNITS in SYRINGE 4.95 ML IV ONE (19:15)
--- NOTE | 2022-07-27 19:26 | Ultrasound Report ---
RENAL ULTRASOUND CLINICAL HISTORY: TUCKER with bump in floral designer to 5.38 COMPARISON STUDY: CT of the abdomen and pelvis June 12, 2019. Renal ultrasound February 13, 2020. TECHNIQUE: Sonography of the kidneys and the urinary bladder was performed. FINDINGS: The right kidney measures 7.5 x 3.2 x 3.2 cm and the left measures 7.4 x 4.2 x 3.5 cm. Ther e is no hydronephrosis. A 1.5 cm left renal cyst is present. Moderate bilateral renal cortical thinni ng is present. Bladder suboptimally assessed given underdistention. No renal calculi are identified. No solid renal lesions are identified. IMPRESSION: 1. No hydronephrosis. 2. Moderate bilateral renal cortical thinning. ACT 112: Negative or not required by law. Electronically signed by: Rudy Barrow M.D. 07/27/2022 7:24 PM
[2022-07-27] MEDS: ATORVASTATIN 20 MG TAB PO SCH (21:07)
[2022-07-27] MEDS: PARoxetine HCL 20 MG TAB PO SCH (22:11)
[2022-07-27] MEDS: LORazepam 0.5 MG TAB PO PRN (22:11)
[2022-07-28] MEDS: INSULIN ASPART PER UNIT SC SCH ×7 (03:32→21:47)
[2022-07-28] MEDS: amLODIPine BESYLATE 5 MG TAB PO SCH (08:29)
[2022-07-28] MEDS: FLUTICASONE/VILANTEROL 200/25MCG 14 PUFFS/INHALER INH SCH (08:30)
[2022-07-28] MEDS: ASPIRIN 81 MG ECTAB PO SCH (08:30)
[2022-07-28] MEDS: dilTIAZem HCL 180 MG CAPCR PO SCH (08:30)
[2022-07-28 08:41] LABS: Basophils # (auto) 0.01 K/uL (0-0.2); Basophils % (auto) 0.1 %; Hematocrit (blood only) 28.6 % (34.1-44.9); Hemoglobin 9.2 g/dl (12.0-16.0); Immature Granulocytes # (auto) 0.06 K/uL (0.00-0.02); Immature Granulocytes % (auto) 0.5 %; Lymphocytes % (auto) 6.3 %; Mean Corpuscular Hemoglobin 25.6 pg (25.0-34.0); Mean Corpuscular Hgb Conc 32.2 g/dL (32.0-36.0); Mean Corpuscular Volume 79.7 fL (80.0-100.0); Mean Platelet Volume 9.9 fL (9.4-12.3); Monocytes % (auto) 3.6 %; Neutrophils # (auto) 9.88 K/uL (1.4-6.5); Neutrophils % (auto) 89.5 %; Nucleated RBC # (auto) 0.05 K/uL (0-0); Nucleated RBC % (auto) 0.5 %; Platelet Count 343 K/uL (130-400); RDW Standard Deviation 51.9 fL (36.4-46.3); Red Blood Count 3.59 M/uL (3.93-5.22); White Blood Count 11.05 K/ul (4.8-10.8)
[2022-07-28 09:00] LABS: INR 4.3 (0.9-1.1); Prothrombin Time 42.4 Seconds (9.0-12.0)
[2022-07-28 09:14] LABS: Iron 18 mcg/dl (35-150); Total Iron Binding Cap Calc 343 mcg/dl (250-450); Transferrin (FE) Percent Satur 5 % (15-50); Unsaturated Iron Binding Cap 325 mcg/dl (155-355)
[2022-07-28 09:17] LABS: Albumin Level 4.1 gm/dl (3.4-5.0); BUN Creatinine Ratio 13.3 (10-20); Bilirubin Direct 0.1 mg/dl (0-0.2); Bilirubin,Total 0.5 mg/dl (0.2-1.0); Creatinine Clr Calc Pharmacy 6.6 ml/min; Est GFR (African American) 5.9 ml/min; Magnesium 2.7 mg/dl (1.7-2.4); Phosphorus 5.4 mg/dl (2.5-4.9); Potassium 4.8 mmol/L (3.5-5.1); Total Protein 6.6 gm/dl (6.0-8.3)
[2022-07-28 09:52] LABS: Ferritin 35.4 ng/ml (8-388)
[2022-07-28] MEDS ORDERED: IRON SUCROSE 200 MG in 0.9 % SODIUM CHLORIDE 100 ML IV ONE (10:15)
[2022-07-28 10:32] LABS: Estimated Average Glucose 131 mg/dl; Hemoglobin A1C 6.2 % (4.5-5.6)
--- NOTE | 2022-07-28 10:44 | Nephrology Progress Note ---
Date of Service July 28, 2022 Assessment & Plan (1) Acute on chronic renal failure: Plan: Remains oligoanuric. US reviewed this AM. Notable chronic changes and renal atrophy. No obstruction. Clinical presentation suggestive of hypoperfusion injury in the setting of AF/RVR. Volume status acceptable. Electrolytes normal. There is no emergent indication for [employer]. Unfortunately, prognosis for renal recovery is guarded. PO NaHCO3 replacement ordered for NAGMA. IV iron and pending re-evaluation throughout the day consider IV fluid/diuretic challenge. (2) Stage 5 chronic kidney disease not on chronic dialysis: Plan: Baseline creatinine 3.0-3.8 mg/dL. Etiology unclear. UA on admission bland. AVF mature for use with good thrill and bruit. Planning in-centre HD if indicated. No renal vacular imaging. US suggestive of advanced CKD. Medications appropriately dosed for kidney dysfunction. (3) Anemia in CKD (chronic kidney disease): Plan: Iron deficiency. Tsat 5 and ferritin 35. Venofer 200 mg IV now. Maintained on Epogen as outpatient. Additional JOSHUA therapy will be provided once iron stores have been replaced. (4) Secondary hyperparathyroidism of renal origin: Plan: Continue calcitriol as Rx. Serum calcium normal. (5) Atrial fibrillation with rapid ventricular response: Plan: Regular this AM. BP acceptable. (6) Pulmonary hypertension: Plan: Not decompensated on exam. Additional diuretics held. Admission and Anticipated Discharge Date Admission Date: July 25, 2022 Subjective No acute events overnight. Martha was seen and evaluated with her son and daughter at the bedside. She denies chest pain or palpitations. No dyspnea reported. Unfortunately she remains oligoanuric. Review of Systems Review of Systems: All systems reviewed & are unremarkable except as noted in HPI & below Physical Exam Constitutional: well developed; no acute distress Eyes: no scleral abnormality and no corneal abnormality ENMT: Mouth: + dry oral mucous membranes Neck: normal visual inspection and trachea midline Respiratory: normal respiratory effort Auscultation: lungs clear to auscultation bilaterally and + rales (few at left base clear with coughing) Cardiovascular: Rate/Rhythm: regular rate Heart Sounds: normal S1, normal S2 and + murmur Extremities: + edema and + AV fistula Musculoskeletal: Extremities: no cyanosis and no clubbing Skin: + turgor decreased; no jaundice Neurologic: Motor/Sensory: no tremor and no asterixis Psychiatric: Orientation: alert and oriented x 3 Results & Data ([facility]) Vital Signs (Past 12 Hours) Vital Signs Temp Pulse Resp BP Pulse Ox O2 Del Method 07/28/22 07:40 36.7 C 75 18 118/73 94 Room Air 07/28/22 04:01 36.7 C 74 16 123/69 90 Room Air 07/27/22 22:49 36.6 C 71 19 121/72 94 Room Air Laboratory Results Laboratory Results - last 24 hr 07/27/22 07/27/22 07/27/22 14:33 16:17 16:18 WBC RBC Hgb Hct MCV MCH MCHC RDW Std Deviation RDW Coeff of Alice Plt Count MPV Immature Gran % (Auto) Neut % (Auto) Lymph % (Auto) Davidson % (Auto) Eos % (Auto) Baso % (Auto) Neut # (Auto) Lymph # (Auto) Davidson # (Auto) Eos # (Auto) Baso # (Auto) Immature Gran # (Auto) Absolute Nucleated RBC Nucleated RBC % (auto) PT INR Sodium 129 L Potassium 5.2 H Chloride 95 L Carbon Dioxide 21 Anion Gap 13 H BUN 70 H Creatinine 5.68 H* D Est Cr Clr Drug Dosing 8.0 Est GFR ( Amer) 7.5 Est GFR (Non-Af Amer) 6.5 BUN/Creatinine Ratio 12.3 Glucose 338 H* POC Glucose 376 H* 324 H* Estimat Average Glucose Hemoglobin A1c Calcium 9.4 Phosphorus Magnesium Iron TIBC Unsaturated IBC Transferrin % Sat Ferritin Total Bilirubin Direct Bilirubin AST ALT Alkaline Phosphatase Total Protein Albumin 07/27/22 07/27/22 07/27/22 16:19 18:06 20:25 WBC RBC Hgb Hct MCV MCH MCHC RDW Std Deviation RDW Coeff of Alice Plt Count MPV Immature Gran % (Auto) Neut % (Auto) Lymph % (Auto) Davidson % (Auto) Eos % (Auto) Baso % (Auto) Neut # (Auto) Lymph # (Auto) Davidson # (Auto) Eos # (Auto) Baso # (Auto) Immature Gran # (Auto) Absolute Nucleated RBC Nucleated RBC % (auto) PT INR Sodium Potassium Chloride Carbon Dioxide Anion Gap BUN Creatinine Est Cr Clr Drug Dosing Est GFR ( Amer) Est GFR (Non-Af Amer) BUN/Creatinine Ratio Glucose POC Glucose 351 H* 324 H* 151 H Estimat Average Glucose Hemoglobin A1c Calcium Phosphorus Magnesium Iron TIBC Unsaturated IBC Transferrin % Sat Ferritin Total Bilirubin Direct Bilirubin AST ALT Alkaline Phosphatase Total Protein Albumin 07/28/22 07/28/22 07/28/22 00:14 04:03 07:40 WBC RBC Hgb Hct MCV MCH MCHC RDW Std Deviation RDW Coeff of Alice Plt Count MPV Immature Gran % (Auto) Neut % (Auto) Lymph % (Auto) Davidson % (Auto) Eos % (Auto) Baso % (Auto) Neut # (Auto) Lymph # (Auto) Davidson # (Auto) Eos # (Auto) Baso # (Auto) Immature Gran # (Auto) Absolute Nucleated RBC Nucleated RBC % (auto) PT INR Sodium Potassium Chloride Carbon Dioxide Anion Gap BUN Creatinine Est Cr Clr Drug Dosing Est GFR ( Amer) Est GFR (Non-Af Amer) BUN/Creatinine Ratio Glucose POC Glucose 102 H 152 H 143 H Estimat Average Glucose Hemoglobin A1c Calcium Phosphorus Magnesium Iron TIBC Unsaturated IBC Transferrin % Sat Ferritin Total Bilirubin Direct Bilirubin AST ALT Alkaline Phosphatase Total Protein Albumin 07/28/22 07/28/22 07/28/22 07:49 07:49 07:49 WBC 11.05 H RBC 3.59 L Hgb 9.2 L Hct 28.6 L MCV 79.7 L MCH 25.6 MCHC 32.2 RDW Std Deviation 51.9 H RDW Coeff of Alice 18.0 H Plt Count 343 MPV 9.9 Immature Gran % (Auto) 0.5 Neut % (Auto) 89.5 Lymph % (Auto) 6.3 Davidson % (Auto) 3.6 Eos % (Auto) 0.0 Baso % (Auto) 0.1 Neut # (Auto) 9.88 H Lymph # (Auto) 0.70 L Davidson # (Auto) 0.40 Eos # (Auto) 0.00 Baso # (Auto) 0.01 Immature Gran # (Auto) 0.06 H Absolute Nucleated RBC 0.05 H Nucleated RBC % (auto) 0.5 PT 42.4 H INR 4.3 H Sodium 129 L Potassium 4.8 Chloride 95 L Carbon Dioxide 20 L Anion Gap 14 H BUN 93 H D Creatinine 7.01 H* D Est Cr Clr Drug Dosing 6.6 Est GFR ( Amer) 5.9 Est GFR (Non-Af Amer) 5.0 BUN/Creatinine Ratio 13.3 Glucose 126 H POC Glucose Estimat Average Glucose Hemoglobin A1c Calcium 9.0 Phosphorus 5.4 H Magnesium 2.7 H Iron TIBC Unsaturated IBC Transferrin % Sat Ferritin 35.4 Total Bilirubin 0.5 Direct Bilirubin 0.1 AST 20 ALT 61 H Alkaline Phosphatase 50 Total Protein 6.6 Albumin 4.1 07/28/22 07/28/22 07:49 07:49 WBC RBC Hgb Hct MCV MCH MCHC RDW Std Deviation RDW Coeff of Alice Plt Count MPV Immature Gran % (Auto) Neut % (Auto) Lymph % (Auto) Davidson % (Auto) Eos % (Auto) Baso % (Auto) Neut # (Auto) Lymph # (Auto) Davidson # (Auto) Eos # (Auto) Baso # (Auto) Immature Gran # (Auto) Absolute Nucleated RBC Nucleated RBC % (auto) PT INR Sodium Potassium Chloride Carbon Dioxide Anion Gap BUN Creatinine Est Cr Clr Drug Dosing Est GFR ( Amer) Est GFR (Non-Af Amer) BUN/Creatinine Ratio Glucose POC Glucose Estimat Average Glucose 131 Hemoglobin A1c 6.2 H Calcium Phosphorus Magnesium Iron 18 L TIBC 343 Unsaturated IBC 325 Transferrin % Sat 5 L Ferritin Total Bilirubin Direct Bilirubin AST ALT Alkaline Phosphatase Total Protein Albumin PG Care Time/CCT Total # of Minutes Spent Total Time Spent with Patient: Total time spent is greater than 50% in coordination of care (as documented) at patient's floor/unit and/or counseling patient: Coding Level of Care Code 15567 SUB INP/OBS CARE 3/50MIN Diagnoses Acute on chronic renal failure N17.9; N18.9 Stage 5 chronic kidney disease not on chronic dialysis N18.5 Anemia in CKD (chronic kidney disease) N18.9; D63.1 Secondary hyperparathyroidism of renal origin N25.81 Atrial fibrillation with rapid ventricular response I48.91 Pulmonary hypertension I27.20
--- NOTE | 2022-07-28 11:17 | Pharmacy Report ---
Pharmacy Glycemic Short Note 2 - Date of Service July 28, 2022 - Glycemic Short BSG Results (Last 24 hours): 07/27/22 07/27/22 07/27/22 14:33 16:17 16:18 Glucose 338 H* POC Glucose 376 H* 324 H* 07/27/22 07/27/22 07/27/22 16:19 18:06 20:25 Glucose POC Glucose 351 H* 324 H* 151 H 07/28/22 07/28/22 07/28/22 00:14 04:03 07:40 Glucose POC Glucose 102 H 152 H 143 H 07/28/22 07:49 Glucose 126 H POC Glucose OUTPATIENT ANTIDIABETIC REGIMEN: * NONE * Hemoglobin A1C 01/03/22 5.9%, repeat 07/28/22 6.2% ASSESSMENT: * 07/28: Patient is a 82 F with no prior history of insulin dependent diabetes presenting with SOB. The patient received 40mg IV methylprednisolone BID starting 07/25 which has been discontinued (last dose 07/26 2058). Hyperglycemia noted 07/27 and pharmacy consulted to manage hyperglycemia. patient received 25 units of correctional insulin, 5 units of regular insulin IV Push, and 5 units of Lantus * Adjusted goal range from 140-180 to 110-140 for better glycemic control. * Loosened Novolog parameters as outlined below to a weight based stress of 2 * IV methylprednisolone discontinued, serum creatinine increasing, nephrology following, no other stressors * Will give 5 units of Lantus tonight to cover basal insulin needs PLAN FOR INPATIENT GLYCEMIC CONTROL: * Basal insulin * Lantus 5 units SQ HS (hold if below goal) * Bolus insulin * NovoLog per scale ACHS or Q6hrs while NPO * Goal Range: Low 110 mg/dL - High 140 mg/dL * Correction Factor: 30 mg/dL/unit * Nutritional / Prandial insulin per carb ratio of 1 unit per 10 grams CHO consumed
[2022-07-28] MEDS: SODIUM BICARBONATE 650 MG TAB PO SCH ×2 (12:29→21:49)
--- NOTE | 2022-07-28 16:54 | Hospitalist Progress Note ---
Date of Service July 28, 2022 Assessment & Plan (1) SOB (shortness of breath): Plan: Attending: Dr. Sow Impression: Is an 82-year-old female that was admitted on 07/25/2022 with shortness of breath. This appears to be multifactorial including chronic diastolic heart failure with atrial fibrillation with rapid ventricular response. Patient was given intravenous Solu-Medrol as well as furosemide and started on diltiazem drip for rate control. This improved patient's overall symptoms. She had no overnight events. She does continue in atrial fibrillation with a rate in the 80s. She is on diltiazem and was converted from IV drip to p.o. with lasting rate control. Patient has no awareness of tachyarrhythmia and no chest pain. She follows with Dr. Dixon as an outpatient. Patient had a bump in her creatinine. Repeat labs with worsening acute kidney injury and developing hyperglycemia.IV Solu-Medrol was discontinued. Hemoglobin A1c 5.9% from January 03, 2022. Repeat hemoglobin A1c this morning is 6.2%. Patient has no history of insulin-dependent diabetes. Now the patient is rate controlled she has no further shortness of breath and no hypoxia Continue rate control withDiltiazem as below Increase ambulation as tolerated (2) Acute on chronic renal failure: Plan: Chronic kidney disease stage V Worsening renal function yesterday suspected to be secondary to increased heart rate and Yasmany vickers Nephrology consulted. Appreciate Dr. Callahan's input Unfortunately, patient is now oliguric Repeat bladder scan today showed no significant urine in the bladder Patient does have a mature AV fistula in the left forearm. Good bruit. Has not required dialysis in the past Continue to follow serial labs (3) Atrial fibrillation with rapid ventricular response: Plan: Patient placed on diltiazem drip on admission. This was converted to diltiazem p.o. 07/26/2019 3 PM Patient does remain in atrial fibrillation but is better rate controlled in the 70s and 80s Continue on telemetry Follow-up with Dr. Dixon as an outpatient (4) Anemia in CKD (chronic kidney disease): Plan: Iron studies ordered and reviewed Iron is 18, TIBC 343, unsaturated IBC 325, transferrin 5%, ferritin 35.4 Transfuse Venofor today Follow serial labs (5) Hypercholesteremia: Plan: Continue atorvastatin (6) Asthma-COPD overlap syndrome: Plan: Follows with Dr. Castaneda as an outpatient No acute complaints today. IV methylprednisolone is been discontinued. 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 Patient also has history of provoked DVT. Retinal AA thrombosis Patient continues on Coumadin per Coumadin clinic INR is 4 today Continue with home dose of 3 mg p.o. daily for 6 days. Outpatient follow-up with Coumadin clinic Plan Continue on telemetry for atrial fibrillation and acute on chronic renal failure Follow serial labs for elevated creatinine of 7.01 Advised with any nausea, vomiting, diarrhea that is unexplained Admission and Anticipated Discharge Date Admission Date: July 25, 2022 Supervising Physician Co-Signing Physician Notes Attending Attestation - Chart reviewed in detail, care plan d/w PA Tal Villasenor. I agree w/ the wooten components of his documentation. Alberto Sow MD Subjective Attending: Dr. Sow Patient seen and examined at bedside in room 222. Her daughter and son were present during my interview and examination. Patient denies any abdominal pain or back pain. She continues to remain oliguric. Bladder scan was done last night with no evidence of urine. Patient also had a renal ultrasound with no evidence of urine in the bladder. Her creatinine is elevated again today at 7.01. Her potassium however is controlled and is currently 4.8. Patient is noted to have an elevated phosphorus of 5.4. Glucose is better controlled with a random glucose this morning of 157. She was started on 5 units of Lantus twice daily as well as sliding scale insulin yesterday. Hemoglobin A1c was 6.2%. She denies nausea, vomiting, fever, diarrhea. No shortness of breath. No hypoxia. No cough. No other acute complaints. Review of Systems Review of Systems: A total of 10 systems was reviewed and is negative other than as listed in the HPI Physical Exam Physical Exam: GENERAL : No acute distress EYES: No icterus, gaze conjugate NOSE: No evidence of epistaxis MOUTH: No lesions or candidiasis NECK: Supple LUNGS: CTA B/L, no wheezes, rales or rhonchi HEART: Regular, rate controlled ABDOMEN: Soft, NT, ND, BS Present EXTREMITIES: No LE edema, pedal pulses intact NEURO: A&OX3 Results & Data Results & Data ([facility]) Vital Signs (Past 12 Hours) Vital Signs Temp Pulse Pulse Resp BP Pulse Ox O2 Del Method 07/28/22 15:43 36.7 C 54 L 18 110/64 97 Room Air 07/28/22 14:04 67 07/28/22 06:00 71 07/28/22 11:12 36.8 C 61 18 120/70 98 Room Air 07/28/22 07:40 36.7 C 75 18 118/73 94 Room Air Critical Care Results & Data Vital Signs (Past 12 Hours) Vital Signs Temp Pulse Pulse Resp BP Pulse Ox O2 Del Method 07/28/22 15:43 36.7 C 54 L 18 110/64 97 Room Air 07/28/22 14:04 67 07/28/22 06:00 71 07/28/22 11:12 36.8 C 61 18 120/70 98 Room Air 07/28/22 07:40 36.7 C 75 18 118/73 94 Room Air Lab & Micro Results (Past 24 Hours) RBC 3.32 M/uL (3.93-5.22) L 08/04/22 WBC 6.47 K/ul (4.8-10.8) 08/04/22 Hgb 8.7 g/dl (12.0-16.0) L 08/04/22 Hct 26.9 % (34.1-44.9) L 08/04/22 MCV 81.0 fL (80.0-100.0) 08/04/22 MCH 26.2 pg (25.0-34.0) 08/04/22 MCHC 32.3 g/dL (32.0-36.0) 08/04/22 RDW Standard Deviation 53.8 fL (36.4-46.3) H 08/04/22 RDW Coefficient of Variation 19.1 % (11.5-14.5) H 08/04/22 Plt Count 326 K/uL (130-400) 08/04/22 MPV 9.2 fL (9.4-12.3) L 08/04/22 Na 134 mmol/L (136-145) L 08/04/22 K 3.6 mmol/L (3.5-5.1) 08/04/22 Cl 99 mmol/L (98-107) 08/04/22 CO2 27 mmol/L (21-32) 08/04/22 Anion Gap 8 (3-11) 08/04/22 BUN 75 mg/dl (6-23) H 08/04/22 Creatinine 5.90 mg/dl (0.6-1.2) H* 08/04/22 Estimated GFR ( Amer) 7.2 ml/min 08/04/22 Estimated GFR (Non-Af Amer) 6.2 ml/min 08/04/22 BUN/Creatinine Ratio 12.7 (10-20) 08/04/22 Glu 100 mg/dl (70-99(Fasting)) H 08/04/22 Ca 8.0 mg/dl (8.5-10.1) L 08/04/22 Calcium Level 8.0 mg/dl (8.5-10.1) L 08/04/22 05:54 Prothromb Time International Ratio 2.3 (0.9-1.1) H 08/04/22 05 :54 Microbiology 07/25/22 15:36 Aerobic Blood Culture - Preliminary Blood No growth in Aerobic bottle after 48 hours. Anaerobic Blood Culture - Preliminary No growth in Anaerobic bottle after 48 hours. 07/25/22 15:05 Aerobic Blood Culture - Preliminary Blood No growth in Aerobic bottle after 48 hours. Anaerobic Blood Culture - Preliminary No growth in Anaerobic bottle after 48 hours. Diagnostic Findings (Past 24 Hours) Renal Ultrasound 07/27/22 16:38 RENAL ULTRASOUND CLINICAL HISTORY: TUCKER with bump in public health sanitarian to 5.38 COMPARISON STUDY: CT of the abdomen and pelvis June 12, 2019. Renal ultrasound February 13, 2020. TECHNIQUE: Sonography of the kidneys and the urinary bladder was performed. FINDINGS: The right kidney measures 7.5 x 3.2 x 3.2 cm and the left measures 7.4 x 4.2 x 3.5 cm. There is no hydronephrosis. A 1.5 cm left renal cyst is present. Moderate bilateral renal cortical thinning is present. Bladder suboptimally assessed given underdistention. No renal calculi are identified. No solid renal lesions are identified. IMPRESSION: 1. No hydronephrosis. 2. Moderate bilateral renal cortical thinning. ACT 112: Negative or not required by law. Electronically signed by: Rudy Barrow M.D. 07/27/2022 7:24 PM I & O Totals 24 Hours 07/27/22 07/28/22 07/29/22 06:59 06:59 06:59 Intake Total 1884.250 / 1884.250 365 / 365 110 / 110 Output Total 925 / 925 5 / 5 Balance 959.250 / 959.250 360 / 360 110 / 110 Cumulative 07/25/22 14:42 thru 07/28/22 15:38 Intake Total 3260.916 Output Total 1930 Balance 1330.916 RT Ventilator Mngmt (Last Documented) Ventilator Ordered Settings Respiratory Rate 18 07/28/22 15:43 Ventilator - PT Measurements Respiratory Rate 18 PG Care Time/CCT Total # of Minutes Spent Total Time Spent with Patient: Total time spent is greater than 50% in coordination of care (as documented) at patient's floor/unit and/or counseling patient: Coding Level of Care Code 10403 SUB INP/OBS CARE 2/35MIN Diagnoses SOB (shortness of breath) R06.02 Acute on chronic renal failure N17.9; N18.9 Atrial fibrillation with rapid ventricular response I48.91 Anemia in CKD (chronic kidney disease) N18.9; D63.1 Hypercholesteremia E78.00 Asthma-COPD overlap syndrome J44.9 Chronic anticoagulation Z79.01
[2022-07-28] MEDS ORDERED: NORMOSOL-R 500 ML IV ONE (19:52)
[2022-07-28] MEDS ORDERED: LANTUS PER UNIT CHARGE SQ SCH (21:00)
[2022-07-28] MEDS: LANTUS PER UNIT CHARGE SQ SCH (21:48)
[2022-07-28] MEDS: PARoxetine HCL 20 MG TAB PO SCH (21:49)
[2022-07-28] MEDS: CALCITRIOL 0.25 MCG CAPSULE PO SCH (21:49)
[2022-07-28] MEDS: LORazepam 0.5 MG TAB PO PRN (21:49)
[2022-07-28] MEDS: ATORVASTATIN 20 MG TAB PO SCH (21:50)
[2022-07-29] MEDS: methylPREDNISolone 40 MG in SYRINGE 0 ML IV SCH (07:25)
[2022-07-29 07:41] LABS: Hematocrit (blood only) 26.4 % (34.1-44.9); Hemoglobin 8.7 g/dl (12.0-16.0); Immature Granulocytes # (auto) 0.05 K/uL (0.00-0.02); Immature Granulocytes % (auto) 0.6 %; Lymphocytes # (auto) 0.89 K/uL (1.2-3.4); Lymphocytes % (auto) 10.3 %; Mean Corpuscular Hemoglobin 25.7 pg (25.0-34.0); Mean Corpuscular Volume 78.1 fL (80.0-100.0); Mean Platelet Volume 9.9 fL (9.4-12.3); Monocytes # (auto) 0.75 K/uL (0.24-0.82); Monocytes % (auto) 8.7 %; Neutrophils # (auto) 6.98 K/uL (1.4-6.5); Neutrophils % (auto) 80.4 %; Nucleated RBC # (auto) 0.07 K/uL (0-0); Nucleated RBC % (auto) 0.8 %; Platelet Count 304 K/uL (130-400); RDW Coefficient of Variation 17.9 % (11.5-14.5); RDW Standard Deviation 50.6 fL (36.4-46.3); Red Blood Count 3.38 M/uL (3.93-5.22); White Blood Count 8.67 K/ul (4.8-10.8)
[2022-07-29] MEDS ORDERED: NORMOSOL-R 500 ML IV ONE ×2 (08:02→17:10)
[2022-07-29 08:04] LABS: BUN Creatinine Ratio 13.2 (10-20); Calcium 8.3 mg/dl (8.5-10.1); Creatinine Clr Calc Pharmacy 5.7 ml/min; Est GFR (Non-African American) 4.3 ml/min; Magnesium 2.8 mg/dl (1.7-2.4); Potassium 4.7 mmol/L (3.5-5.1)
[2022-07-29] MEDS ORDERED: IRON SUCROSE 200 MG in 0.9 % SODIUM CHLORIDE 100 ML IV ONE (08:15)
[2022-07-29] MEDS: ASPIRIN 81 MG ECTAB PO SCH (08:18)
[2022-07-29 08:21] LABS: INR 3.7 (0.9-1.1); Prothrombin Time 36.6 Seconds (9.0-12.0)
[2022-07-29] MEDS: amLODIPine BESYLATE 5 MG TAB PO SCH (08:23)
[2022-07-29] MEDS: SODIUM BICARBONATE 650 MG TAB PO SCH ×2 (08:23→20:36)
[2022-07-29] MEDS: dilTIAZem HCL 180 MG CAPCR PO SCH (08:23)
[2022-07-29] MEDS: FLUTICASONE/VILANTEROL 200/25MCG 14 PUFFS/INHALER INH SCH (08:24)
[2022-07-29] MEDS: INSULIN ASPART PER UNIT SC SCH ×4 (08:27→20:35)
--- NOTE | 2022-07-29 09:48 | Nephrology Progress Note ---
Date of Service July 29, 2022 Assessment & Plan (1) Acute on chronic renal failure: Plan: Remains oligoanuric. However, Martha did void 125 ml this AM. Small fluid challenge provided overnight. Additional bolus of normosol ordered this AM to attempt to encourage urine output. I reviewed potential indications to initiate BAG BUNDLER with Martha this morning. She expressed understanding. Electrolytes and volume status remain acceptable despite minimal urine output. I am not planning to start emergently though changes or renal recovery are guarded. If there is no improvement in urine output today, I would anticipate BAG BUNDLER tomorrow. Clinical presentation suggestive of hypoperfusion injury in the setting of AF/RVR. Volume status acceptable. Electrolytes normal. PO NaHCO3 replacement ordered for NAGMA. IV iron and IVF challenge. (2) Stage 5 chronic kidney disease not on chronic dialysis: Plan: Baseline creatinine 3.0-3.8 mg/dL. Etiology unclear. UA on admission bland. AVF mature for use with good thrill and bruit. Planning in-centre HD if indicated. No renal vacular imaging. US demonstrating changes of advanced CKD. Medications appropriately dosed for kidney dysfunction. (3) Anemia in CKD (chronic kidney disease): Plan: Venofer 200 mg IV x 2nd dose today. Maintained on Epogen as outpatient. Additional JOSHUA therapy will be provided once iron stores have been replaced. (4) Secondary hyperparathyroidism of renal origin: Plan: Continue calcitriol as Rx. Serum calcium normal. (5) Atrial fibrillation with rapid ventricular response: Plan: Regular this AM. BP acceptable. (6) Pulmonary hypertension: Plan: Not decompensated on exam. Additional diuretics held. Bolus of 500 ml normosol ordered for this AM. Admission and Anticipated Discharge Date Admission Date: July 25, 2022 Subjective No acute events overnight. Martha was resting comfortably in bed this AM. She feels reasonably well. She denies chest pain or palpitations. No shortness of breath reported. Appetite is fair. She produced some urine this AM ~125 ml. Review of Systems Review of Systems: All systems reviewed & are unremarkable except as noted in HPI & below Physical Exam Constitutional: well developed; no acute distress Eyes: no scleral abnormality and no corneal abnormality ENMT: Mouth: + dry oral mucous membranes; no oral mucosal abnormality Neck: normal visual inspection and trachea midline Respiratory: normal respiratory effort Auscultation: lungs clear to auscult ation bilaterally and + rales (few at bases) Cardiovascular: Rate/Rhythm: regular rate Heart Sounds: normal S1, normal S2 and + murmur Extremities: + edema and + AV fistula Musculoskeletal: Extremities: no cyanosis and no clubbing Skin: normal turgor and + turgor decreased; no lesions and no jaundice Neurologic: Motor/Sensory: no tremor and no asterixis Psychiatric: Orientation: alert and oriented x 3 Results & Data ([facility]) Vital Signs (Past 12 Hours) Vital Signs Temp Pulse Resp BP Pulse Ox O2 Del Method 07/29/22 08:02 36.8 C 93 H 20 125/66 90 Room Air 07/29/22 03:58 36.7 C 67 19 113/63 96 Room Air 07/28/22 22:41 36.7 C 64 18 114/65 96 Room Air Laboratory Results Laboratory Results - last 24 hr 07/28/22 07/28/22 07/28/22 07:49 07:49 10:56 WBC RBC Hgb Hct MCV MCH MCHC RDW Std Deviation RDW Coeff of Alice Plt Count MPV Immature Gran % (Auto) Neut % (Auto) Lymph % (Auto) [place] % (Auto) Eos % (Auto) Baso % (Auto) Neut # (Auto) Lymph # (Auto) [place] # (Auto) Eos # (Auto) Baso # (Auto) Immature Gran # (Auto) Absolute Nucleated RBC Nucleated RBC % (auto) PT INR Sodium Potassium Chloride Carbon Dioxide Anion Gap BUN Creatinine Est Cr Clr Drug Dosing Est GFR ( Amer) Est GFR (Non-Af Amer) BUN/Creatinine Ratio Glucose POC Glucose Estimat Average Glucose 131 Hemoglobin A1c 6.2 H Calcium Magnesium Ferritin 35.4 Hep Bs Antigen Pending Hep Bs Ag Confirmation Pending Hep Bs Antibody, Quant Pending 07/28/22 07/28/22 07/28/22 11:13 16:36 20:03 WBC RBC Hgb Hct MCV MCH MCHC RDW Std Deviation RDW Coeff of Alice Plt Count MPV Immature Gran % (Auto) Neut % (Auto) Lymph % (Auto) [place] % (Auto) Eos % (Auto) Baso % (Auto) Neut # (Auto) Lymph # (Auto) [place] # (Auto) Eos # (Auto) Baso # (Auto) Immature Gran # (Auto) Absolute Nucleated RBC Nucleated RBC % (auto) PT INR Sodium Potassium Chloride Carbon Dioxide Anion Gap BUN Creatinine Est Cr Clr Drug Dosing Est GFR ( Amer) Est GFR (Non-Af Amer) BUN/Creatinine Ratio Glucose POC Glucose 157 H 255 H 208 H Estimat Average Glucose Hemoglobin A1c Calcium Magnesium Ferritin Hep Bs Antigen Hep Bs Ag Confirmation Hep Bs Antibody, Quant 07/29/22 07/29/22 07/29/22 03:56 07:11 07:11 WBC 8.67 RBC 3.38 L Hgb 8.7 L Hct 26.4 L MCV 78.1 L MCH 25.7 MCHC 33.0 RDW Std Deviation 50.6 H RDW Coeff of Alice 17.9 H Plt Count 304 MPV 9.9 Immature Gran % (Auto) 0.6 Neut % (Auto) 80.4 Lymph % (Auto) 10.3 [place] % (Auto) 8.7 Eos % (Auto) 0.0 Baso % (Auto) 0.0 Neut # (Auto) 6.98 H Lymph # (Auto) 0.89 L [place] # (Auto) 0.75 Eos # (Auto) 0.00 Baso # (Auto) 0.00 Immature Gran # (Auto) 0.05 H Absolute Nucleated RBC 0.07 H Nucleated RBC % (auto) 0.8 PT 36.6 H INR 3.7 H Sodium Potassium Chloride Carbon Dioxide Anion Gap BUN Creatinine Est Cr Clr Drug Dosing Est GFR ( Amer) Est GFR (Non-Af Amer) BUN/Creatinine Ratio Glucose POC Glucose 120 H Estimat Average Glucose Hemoglobin A1c Calcium Magnesium Ferritin Hep Bs Antigen Hep Bs Ag Confirmation Hep Bs Antibody, Quant 07/29/22 07/29/22 07:11 07:31 WBC RBC Hgb Hct MCV MCH MCHC RDW Std Deviation RDW Coeff of Alice Plt Count MPV Immature Gran % (Auto) Neut % (Auto) Lymph % (Auto) [place] % (Auto) Eos % (Auto) Baso % (Auto) Neut # (Auto) Lymph # (Auto) [place] # (Auto) Eos # (Auto) Baso # (Auto) Immature Gran # (Auto) Absolute Nucleated RBC Nucleated RBC % (auto) PT INR Sodium 130 L Potassium 4.7 Chloride 95 L Carbon Dioxide 21 Anion Gap 14 H BUN 106 H Creatinine 8.03 H* D Est Cr Clr Drug Dosing 5.7 Est GFR ( Amer) 5.0 Est GFR (Non-Af Amer) 4.3 BUN/Creatinine Ratio 13.2 Glucose 104 H POC Glucose 114 H Estimat Average Glucose Hemoglobin A1c Calcium 8.3 L Magnesium 2.8 H Ferritin Hep Bs Antigen Hep Bs Ag Confirmation Hep Bs Antibody, Quant PG Care Time/CCT Total # of Minutes Spent Total Time Spent with Patient: Total time spent is greater than 50% in coordination of care (as documented) at patient's floor/unit and/or counseling patient: Coding Level of Care Code 81008 SUB INP/OBS CARE 3/50MIN Diagnoses Acute on chronic renal failure N17.9; N18.9 Stage 5 chronic kidney disease not on chronic dialysis N18.5 Anemia in CKD (chronic kidney disease) N18.9; D63.1 Secondary hyperparathyroidism of renal origin N25.81 Atrial fibrillation with rapid ventricular response I48.91 Pulmonary hypertension I27.20
[2022-07-29 10:42] LABS: HBSAG NON-REACTIVE (NON-REACTIVE); Hepatitis B Surface Ab, Quant <5 mIU/mL (> OR = 10)
[2022-07-29] MEDS ORDERED: WARFARIN SOD 1 MG TAB PO SCH (16:00)
--- NOTE | 2022-07-29 19:45 | Hospitalist Progress Note ---
Date of Service July 29, 2022 Assessment & Plan (1) SOB (shortness of breath): Plan: Attending: Dr. Sow Impression: Is an 82-year-old female that was admitted on 07/25/2022 with shortness of breath. This appears to be multifactorial including chronic diastolic heart failure with atrial fibrillation with rapid ventricular response. Patient was given intravenous Solu-Medrol as well as furosemide and started on diltiazem drip for rate control. This improved patient's overall symptoms. She had no overnight events. She does continue in atrial fibrillation with a rate in the 80s. She is on diltiazem and was converted from IV drip to p.o. with lasting rate control. Patient has no awareness of tachyarrhythmia and no chest pain. She follows with Dr. Dixon as an outpatient. Patient had a bump in her creatinine. Repeat labs with worsening acute kidney injury and developing hyperglycemia.IV Solu-Medrol was discontinued. Hemoglobin A1c 5.9% from January 03, 2022. Repeat hemoglobin A1c this morning is 6.2%. Patient has no history of insulin-dependent diabetes. patient continues to be rate controlled but remains in atrial fibrillation Continue rate control with p.o. Diltiazem Continue to encourage increased ambulation as tolerated No hypoxia. Patient is 98% on room air (2) Acute on chronic renal failure: Plan: Chronic kidney disease stage V Worsening renal function suspected to be secondary to increased heart rate and Yasmany vickers Nephrology consulted. Appreciate Dr. Callahan's input Patient had about 25 mL of urine this morning. BUN is elevated at 106 with creatinine at 8.01. Patient has no signs of altered mental status from uremia. Bladder scan showed no significant urine in the bladder Patient does have a mature AV fistula in the left forearm. Good bruit. Has not required dialysis in the past Continue to follow serial labs (3) Atrial fibrillation with rapid ventricular response: Plan: Patient placed on diltiazem drip on admission. This was converted to diltiazem p.o. 07/26/2022 PM Patient remains in atrial fibrillation but is better rate controlled in the 70s and 80s Continue on telemetry Follow-up with Dr. Dixon as an outpatient (4) Anemia in CKD (chronic kidney disease): Plan: Iron studies ordered and reviewed Iron is 18, TIBC 343, unsaturated IBC 325, transferrin 5%, ferritin 35.4 Transfuse Venofor again today Follow serial labs (5) Hypercholesteremia: Plan: Continue atorvastatin (6) Asthma-COPD overlap syndrome: Plan: Follows with Dr. Castaneda as an outpatient No acute complaints today. IV methylprednisolone is been discontinued. 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 Patient also has history of provoked DVT. Retinal AA thrombosis Patient continues on Coumadin per Coumadin clinic INR is 4 today Home dose of 3 mg p.o. daily 6 days each week. INR has been held the last couple of days due to INR being above therapeutic goal. Consequently, will decrease Coumadin tonight to 1 mg and follow daily for dosing Outpatient follow-up with Coumadin clinic Plan Continue on telemetry for atrial fibrillation and acute on chronic renal failure Patient continues to require hospitalization due to rising BUN as well as creatinine. Hoping to avoid dialysis. Followed daily by nephrology Advise of any nausea, vomiting, diarrhea that is unexplained Admission and Anticipated Discharge Date Admission Date: July 25, 2022 Supervising Physician Co-Signing Physician Notes Attending Attestation - Chart reviewed in detail, care plan d/w ENEDINA Villasenor. I agree w/ the wooten components of his documentation. Appreciate ongoing nephrology assistance for acute on chronic renal failure. Alberto Sow MD Subjective Attending: Dr. Sow No acute events overnight. Continues with rising creatinine which is 8.01 this morning. Patient seen by nephrology. Electrolytes are balanced. No nausea or vomiting. No abdominal pain. Patient is tolerating diet. No confusion or disorientation. She has BUN continues to climb and is currently 106 but patient does not demonstrate any signs of uremia from a mental status standpoint. No icterus. No chest pain or tightness. No awareness of tachyarrhythmia. Patient remains in atrial fibrillation but is rate controlled and has good control of bl ood pressure. Review of Systems Review of Systems: A total of 10 systems was reviewed and is negative other than as listed in the HPI Physical Exam Physical Exam: GENERAL : No acute distress EYES: No icterus, gaze conjugate NOSE: No evidence of epistaxis MOUTH: No lesions or candidiasis NECK: Supple LUNGS: CTA B/L, no wheezes, rales or rhonchi HEART: Regular, rate controlled ABDOMEN: Soft, NT, ND, BS Present EXTREMITIES: No LE edema, pedal pulses intact NEURO: A&OX3 Results & Data Results & Data ([facility]) Vital Signs (Past 12 Hours) Vital Signs Temp Pulse Pulse Resp BP Pulse Ox O2 Del Method 07/29/22 18:50 36.4 C L 68 18 104/64 96 Room Air 07/29/22 16:30 36.5 C 69 19 118/61 97 Room Air 07/29/22 14:41 67 07/29/22 12:31 Room Air 07/29/22 12:24 36.5 C 70 18 112/70 96 Room Air 07/29/22 08:02 36.8 C 93 H 20 125/66 90 Room Air Critical Care Results & Data Vital Signs (Past 12 Hours) Vital Signs Temp Pulse Pulse Resp BP Pulse Ox O2 Del Method 07/29/22 18:50 36.4 C L 68 18 104/64 96 Room Air 07/29/22 16:30 36.5 C 69 19 118/61 97 Room Air 07/29/22 14:41 67 07/29/22 12:31 Room Air 07/29/22 12:24 36.5 C 70 18 112/70 96 Room Air 07/29/22 08:02 36.8 C 93 H 20 125/66 90 Room Air Lab & Micro Results (Past 24 Hours) RBC 3.32 M/uL (3.93-5.22) L 08/04/22 WBC 6.47 K/ul (4.8-10.8) 08/04/22 Hgb 8.7 g/dl (12.0-16.0) L 08/04/22 Hct 26.9 % (34.1-44.9) L 08/04/22 MCV 81.0 fL (80.0-100.0) 08/04/22 MCH 26.2 pg (25.0-34.0) 08/04/22 MCHC 32.3 g/dL (32.0-36.0) 08/04/22 RDW Standard Deviation 53.8 fL (36.4-46.3) H 08/04/22 RDW Coefficient of Variation 19.1 % (11.5-14.5) H 08/04/22 Plt Count 326 K/uL (130-400) 08/04/22 MPV 9.2 fL (9.4-12.3) L 08/04/22 Na 134 mmol/L (136-145) L 08/04/22 K 3.6 mmol/L (3.5-5.1) 08/04/22 Cl 99 mmol/L (98-107) 08/04/22 CO2 27 mmol/L (21-32) 08/04/22 Anion Gap 8 (3-11) 08/04/22 BUN 75 mg/dl (6-23) H 08/04/22 Creatinine 5.90 mg/dl (0.6-1.2) H* 08/04/22 Estimated GFR ( Amer) 7.2 ml/min 08/04/22 Estimated GFR (Non-Af Amer) 6.2 ml/min 08/04/22 BUN/Creatinine Ratio 12.7 (10-20) 08/04/22 Glu 100 mg/dl (70-99(Fasting)) H 08/04/22 Ca 8.0 mg/dl (8.5-10.1) L 08/04/22 Calcium Level 8.0 mg/dl (8.5-10.1) L 08/04/22 05:54 Prothromb Time International Ratio 2.3 (0.9-1.1) H 08/04/22 05 :54 I & O Totals 24 Hours 07/28/22 07/29/22 07/30/22 06:59 06:59 06:59 Intake Total 365 / 365 760 / 760 1435 / 1435 Output Total 125 / 125 150 / 150 Balance 360 / 360 635 / 635 1285 / 1285 Cumulative 07/25/22 14:42 thru 07/29/22 18:17 Intake Total 5345.916 Output Total 2205 Balance 3140.916 RT Ventilator Mngmt (Last Documented) Ventilator Ordered Settings Respiratory Rate 18 07/29/22 18:50 Ventilator - PT Measurements Respiratory Rate 18 PG Care Time/CCT Total # of Minutes Spent Total Time Spent with Patient: Total time spent is greater than 50% in coordination of care (as documented) at patient's floor/unit and/or counseling patient: Coding Level of Care Code 16627 SUB INP/OBS CARE 2/35MIN Diagnoses SOB (shortness of breath) R06.02 Acute on chronic renal failure N17.9; N18.9 Atrial fibrillation with rapid ventricular response I48.91 Anemia in CKD (chronic kidney disease) N18.9; D63.1 Hypercholesteremia E78.00 Asthma-COPD overlap syndrome J44.9 Chronic anticoagulation Z79.01
[2022-07-29] MEDS: ATORVASTATIN 20 MG TAB PO SCH (20:36)
[2022-07-29] MEDS: LANTUS PER UNIT CHARGE SQ SCH (20:36)
[2022-07-29] MEDS ORDERED: NORMOSOL-R 1,000 ML IV SCH (23:00)
[2022-07-30 07:35] LABS: Eosinophils # (auto) 0.05 K/uL (0-0.50); Eosinophils % (auto) 0.7 %; Hematocrit (blood only) 26.3 % (34.1-44.9); Hemoglobin 8.7 g/dl (12.0-16.0); Immature Granulocytes # (auto) 0.04 K/uL (0.00-0.02); Immature Granulocytes % (auto) 0.6 %; Lymphocytes # (auto) 0.69 K/uL (1.2-3.4); Lymphocytes % (auto) 9.6 %; Mean Corpuscular Hemoglobin 26.1 pg (25.0-34.0); Mean Corpuscular Hgb Conc 33.1 g/dL (32.0-36.0); Mean Platelet Volume 9.2 fL (9.4-12.3); Monocytes # (auto) 0.65 K/uL (0.24-0.82); Neutrophils # (auto) 5.77 K/uL (1.4-6.5); Neutrophils % (auto) 80.1 %; Nucleated RBC # (auto) 0.04 K/uL (0-0); Nucleated RBC % (auto) 0.6 %; Platelet Count 278 K/uL (130-400); RDW Standard Deviation 51.1 fL (36.4-46.3); Red Blood Count 3.33 M/uL (3.93-5.22)
[2022-07-30 07:44] LABS: INR 3.1 (0.9-1.1); Prothrombin Time 30.8 Seconds (9.0-12.0)
[2022-07-30 08:07] LABS: BUN Creatinine Ratio 13.3 (10-20); Calcium 7.8 mg/dl (8.5-10.1); Creatinine Clr Calc Pharmacy 5.7 ml/min; Est GFR (Non-African American) 4.3 ml/min; Potassium 4.2 mmol/L (3.5-5.1)
[2022-07-30] MEDS: PARoxetine HCL 20 MG TAB PO SCH (08:14)
[2022-07-30] MEDS: ASPIRIN 81 MG ECTAB PO SCH (08:15)
[2022-07-30] MEDS: amLODIPine BESYLATE 5 MG TAB PO SCH (08:15)
[2022-07-30] MEDS: SODIUM BICARBONATE 650 MG TAB PO SCH ×2 (08:15→20:33)
[2022-07-30] MEDS: dilTIAZem HCL 180 MG CAPCR PO SCH (08:16)
[2022-07-30] MEDS: FLUTICASONE/VILANTEROL 200/25MCG 14 PUFFS/INHALER INH SCH (08:16)
[2022-07-30] MEDS: INSULIN ASPART PER UNIT SC SCH ×4 (08:19→20:32)
[2022-07-30] MEDS ORDERED: IRON SUCROSE 200 MG in 0.9 % SODIUM CHLORIDE 100 ML IV ONE (08:46)
[2022-07-30] MEDS ORDERED: EPOETIN ALFA 40,000 UNITS/ML VIAL SQ ONE (10:03)
[2022-07-30 10:23] LABS: Appearance Urine Clear (Clear); Bacteria Urine Automated Negative (Negative); Bilirubin Urine Negative (Negative); Blood Urine Trace (Negative); Color Urine Yellow; Epithelial Cell Urine Auto 20-30 /lpf (0-5); Glucose Urine UA Negative (Negative); Ketones Urine Negative (Negative); Leukocyte Esterase Urine Trace (Negative); Nitrite Urine Negative (Negative); Protein Urine Trace (Negative); Specific Gravity Urine 1.011 (1.000-1.030); Urobilinogen Urine Negative (Negative)
[2022-07-30] MEDS ORDERED: NORMOSOL-R 250 ML IV ONE (12:26)
--- NOTE | 2022-07-30 12:26 | Nephrology Progress Note ---
Date of Service July 30, 2022 Assessment & Plan (1) Acute on chronic renal failure: Plan: Remains relatively oliguric though UOP did increase overnight. Creatinine stable at 8 mg/dL. Thankfully it does not continue to rise but we have not yet seen significant renal recovery. There is no emergent indication for dialysis. Repeat labs have been required for this afternoon. Hepatitis B profile has been sent. Martha remains very aware that initiation of dialysis will be required if we do not see any meaningful kidney recovery soon. Clinical presentation suggestive of hypoperfusion injury in the setting of AF/RVR. Volume status acceptable. Electrolytes normal. PO NaHCO3 replacement ordered for NAGMA. (2) Stage 5 chronic kidney disease not on chronic dialysis: Plan: Baseline creatinine 3.0-3.8 mg/dL. Etiology unclear. UA on admission bland. AVF mature for use with good thrill and bruit. Planning in-centre HD if indicated. No renal vacular imaging. US demonstrating changes of advanced CKD. Medications appropriately dosed for kidney dysfunction. (3) Anemia in CKD (chronic kidney disease): Plan: Venofer 200 mg IV x 3rd dose today. Epogen 21958 units SQ today. (4) Secondary hyperparathyroidism of renal origin: Plan: Continue calcitriol as Rx. Serum calcium normal. (5) Atrial fibrillation with rapid ventricular response: Plan: Heart rate remains regular. In atrial fibrillation this AM. Denies symptoms. BP acceptable. (6) Pulmonary hypertension: Plan: Not decompensated on exam. Additional diuretics held. IVF provided to encourage net daily fluid balance. Admission and Anticipated Discharge Date Admission Date: July 25, 2022 Subjective No acute events overnight. No chest pain or palpitations. Denies any shortness of breath. Overall, Martha feels well. She reports a good appetite. She is happy to report that she voided ~200 ml this AM. Urine output remains reduced. She tolerated IVF overnight. We again reviewed potential indications for dialysis. Review of Systems Review of Systems: All systems reviewed & are unremarkable except as noted in HPI & below Physical Exam Constitutional: well developed; no acute distress Eyes: no scleral abnormality and no corneal abnormality ENMT: Mouth: + dry oral mucous membranes; no oral mucosal abnormality Neck: normal visual inspection and trachea midline Respiratory: Auscultation: lungs clear to auscultation bilaterally and + rales (few at bases) Cardiovascular: Rate/Rhythm: regular rate and + bradycardic Heart Sounds: normal S1, normal S2 and + murmur Extremities: + edema and + AV fistula Musculoskeletal: Extremities: no cyanosis and no clubbing Skin: normal turgor and + turgor decreased; no lesions and no jaundice Neurologic: Motor/Sensory: no tremor and no asterixis Psychiatric: Orientation: alert and oriented x 3 Results & Data ([facility]) Vital Signs (Past 12 Hours) Vital Signs Temp Pulse Resp BP Pulse Ox O2 Del Method 07/30/22 11:04 Room Air 07/30/22 07:44 36.3 C L 80 18 121/65 95 Room Air 07/30/22 03:08 36.5 C 76 16 130/71 98 Room Air Laboratory Results Laboratory Results - last 24 hr 07/29/22 07/29/22 07/30/22 16:01 19:59 07:17 WBC RBC Hgb Hct MCV MCH MCHC RDW Std Deviation RDW Coeff of Alice Plt Count MPV Immature Gran % (Auto) Neut % (Auto) Lymph % (Auto) [place] % (Auto) Eos % (Auto) Baso % (Auto) Neut # (Auto) Lymph # (Auto) [place] # (Auto) Eos # (Auto) Baso # (Auto) Immature Gran # (Auto) Absolute Nucleated RBC Nucleated RBC % (auto) PT INR Sodium Potassium Chloride Carbon Dioxide Anion Gap BUN Creatinine Est Cr Clr Drug Dosing Est GFR ( Amer) Est GFR (Non-Af Amer) BUN/Creatinine Ratio Glucose POC Glucose 153 H 225 H 110 H Calcium Urine Color Urine Appearance Urine pH Ur Specific [place] Urine Protein Urine Glucose (UA) Urine Ketones Urine Blood Urine Nitrite Urine Bilirubin Urine Urobilinogen Ur Leukocyte Esterase Urine WBC (Auto) Urine RBC (Auto) U Hyaline Cast (Auto) U Epithel Cells (Auto) Urine Bacteria (Auto) Ur Random Sodium 07/30/22 07/30/22 07/30/22 07:23 07:23 07:23 WBC 7.20 RBC 3.33 L Hgb 8.7 L Hct 26.3 L MCV 79.0 L MCH 26.1 MCHC 33.1 RDW Std Deviation 51.1 H RDW Coeff of Alice 18.0 H Plt Count 278 MPV 9.2 L Immature Gran % (Auto) 0.6 Neut % (Auto) 80.1 Lymph % (Auto) 9.6 [place] % (Auto) 9.0 Eos % (Auto) 0.7 Baso % (Auto) 0.0 Neut # (Auto) 5.77 Lymph # (Auto) 0.69 L [place] # (Auto) 0.65 Eos # (Auto) 0.05 Baso # (Auto) 0.00 Immature Gran # (Auto) 0.04 H Absolute Nucleated RBC 0.04 H Nucleated RBC % (auto) 0.6 PT 30.8 H INR 3.1 H Sodium 132 L Potassium 4.2 Chloride 97 L Carbon Dioxide 23 Anion Gap 12 H BUN 107 H Creatinine 8.02 H* Est Cr Clr Drug Dosing 5.7 Est GFR ( Amer) 5.0 Est GFR (Non-Af Amer) 4.3 BUN/Creatinine Ratio 13.3 Glucose 106 H POC Glucose Calcium 7.8 L Urine Color Urine Appearance Urine pH Ur Specific [place] Urine Protein Urine Glucose (UA) Urine Ketones Urine Blood Urine Nitrite Urine Bilirubin Urine Urobilinogen Ur Leukocyte Esterase Urine WBC (Auto) Urine RBC (Auto) U Hyaline Cast (Auto) U Epithel Cells (Auto) Urine Bacteria (Auto) Ur Random Sodium 07/30/22 07/30/22 07/30/22 10:00 10:00 11:17 WBC RBC Hgb Hct MCV MCH MCHC RDW Std Deviation RDW Coeff of Alice Plt Count MPV Immature Gran % (Auto) Neut % (Auto) Lymph % (Auto) [place] % (Auto) Eos % (Auto) Baso % (Auto) Neut # (Auto) Lymph # (Auto) [place] # (Auto) Eos # (Auto) Baso # (Auto) Immature Gran # (Auto) Absolute Nucleated RBC Nucleated RBC % (auto) PT INR Sodium Potassium Chloride Carbon Dioxide Anion Gap BUN Creatinine Est Cr Clr Drug Dosing Est GFR ( Amer) Est GFR (Non-Af Amer) BUN/Creatinine Ratio Glucose POC Glucose 98 Calcium Urine Color Yellow Urine Appearance Clear Urine pH 5.0 Ur Specific [place] 1.011 Urine Protein Trace H Urine Glucose (UA) Negative Urine Ketones Negative Urine Blood Trace H Urine Nitrite Negative Urine Bilirubin Negative Urine Urobilinogen Negative Ur Leukocyte Esterase Trace H Urine WBC (Auto) 1-5 Urine RBC (Auto) 5-10 H U Hyaline Cast (Auto) 1-5 U Epithel Cells (Auto) 20-30 H Urine Bacteria (Auto) Negative Ur Random Sodium 40 PG Care Time/CCT Total # of Minutes Spent Total Time Spent with Patient: Total time spent is greater than 50% in coordination of care (as documented) at patient's floor/unit and/or counseling patient: Coding Level of Care Code 09168 SUB INP/OBS CARE 3/50MIN Diagnoses Acute on chronic renal failure N17.9; N18.9 Stage 5 chronic kidney disease not on chronic dialysis N18.5 Anemia in CKD (chronic kidney disease) N18.9; D63.1 Secondary hyperparathyroidism of renal origin N25.81 Atrial fibrillation with rapid ventricular response I48.91 Pulmonary hypertension I27.20
--- NOTE | 2022-07-30 13:21 | Hospitalist Progress Note ---
Date of Service July 30, 2022 Assessment & Plan (1) SOB (shortness of breath): Plan: This appears to be multifactorial including chronic diastolic heart failure with atrial fibrillation with rapid ventricular response. Now back to baseline No hypoxia. Patient is 98% on room air (2) Acute on chronic renal failure: Plan: Chronic kidney disease stage V Admitted with Worsening renal function, etiology is uncertain Nephrology consulted. Appreciate Dr. Callahan's input Patient had about 200cc of urine this morning. BUN is elevated with creatinine still at around 8.01. Patient has no signs of altered mental status from uremia. Bladder scan showed no significant urine in the bladder Patient does have a mature AV fistula in the left forearm. Good bruit. Has not required dialysis in the past Continue to follow serial labs Appreciate nephrology recs (3) Atrial fibrillation with rapid ventricular response: Plan: Patient placed on diltiazem drip on admission. This was converted to diltiazem p.o. 07/26/2022 PM Patient remains in atrial fibrillation but is better rate controlled in the 70s and 80s Continue on telemetry Follow-up with Dr. Dixon as an outpatient (4) Anemia in CKD (chronic kidney disease): Plan: Iron studies ordered and reviewed Iron is 18, TIBC 343, unsaturated IBC 325, transferrin 5%, ferritin 35.4 Received Iron transfusion Follow serial labs (5) Hypercholesteremia: Plan: Continue atorvastatin (6) Asthma-COPD overlap syndrome: Plan: Follows with Dr. Castaneda as an outpatient No acute complaints today. IV methylprednisolone is been discontinued. 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 Patient also has history of provoked DVT. Retinal AA thrombosis Patient continues on Coumadin per Coumadin clinic INR is 3.1 today Home dose of 3 mg p.o. daily 6 days each week. INR has been held the last couple of days due to INR being above therapeutic goal. Consequently, will decrease Coumadin tonight to 1 mg and follow daily for dosing Outpatient follow-up with Coumadin clinic Plan Continue on telemetry for atrial fibrillation and acute on chronic renal failure Patient continues to require hospitalization due to rising BUN as well as creatinine. Hoping to avoid dialysis. Followed daily by nephrology Advise of any nausea, vomiting, diarrhea that is unexplained Admission and Anticipated Discharge Date Admission Date: July 25, 2022 Subjective patient seen and examined, hoping to avoid dialysis Review of Systems Review of Systems: All systems reviewed are negative, apart from the ones contained in the history. Physical Exam Physical Exam: The patient is awake, alert and oriented 3, well developed and well nourished, normocephalic and atraumatic, lying in bed and in no acute distress. HEENT--PERRL, EOMI, mucous membranes and oropharynx mildly dry Neck--supple. No JVD. No bruits. Thyroid normal, trachea midline, no adenopathy. Heart--normal S1 and S2. No murmurs, rubs or gallops. Lungs--clear bilaterally, no respiratory distress, no accessory muscle use. Abdomen--normal bowel sounds and soft. Mild epigastric and left sided abdominal pain Extremities--no cyanosis or clubbing. No edema. Dermatologic--normal skin turgor, normal color, no abnormal lymph nodes, no rash. Neurologic--cranial nerves II through XII grossly intact. Rheumatologic--normal range of motion. Psychiatric--normal affect. Results & Data Results & Data ([facility]) Vital Signs (Past 12 Hours) Vital Signs Temp Pulse Pulse Resp BP Pulse Ox O2 Del Method 07/30/22 07:30 73 07/30/22 11:04 Room Air 07/30/22 07:44 97.3 F L 80 18 121/65 95 Room Air 07/30/22 03:08 97.7 F 76 16 130/71 98 Room Air PG Care Time/CCT Total # of Minutes Spent Total Time Spent with Patient: Total time spent is greater than 50% in coordination of care (as documented) at patient's floor/unit and/or counseling patient: Coding [place] [address] SUB INP/OBS CARE 2/35MIN Patient Type Established History Expanded Problem Focused Exam Expanded Problem Focused Medical Decision Making Moderate Complexity Diagnoses SOB (shortness of breath) R06.02 Acute on chronic renal failure N17.9; N18.9 Atrial fibrillation with rapid ventricular response I48.91 Anemia in CKD (chronic kidney disease) N18.9; D63.1 Hypercholesteremia E78.00 Asthma-COPD overlap syndrome J44.9 Chronic anticoagulation Z79.01 Time Spent (min) 35
--- NOTE | 2022-07-30 13:31 | Pharmacy Report ---
Pharmacy Glycemic Short Note 2 - Date of Service July 30, 2022 - Glycemic Short BSG Results (Last 24 hours): 07/29/22 07/29/22 07/30/22 16:01 19:59 07:17 Glucose POC Glucose 153 H 225 H 110 H 07/30/22 07/30/22 07:23 11:17 Glucose 106 H POC Glucose 98 OUTPATIENT ANTIDIABETIC REGIMEN: * NONE * Hemoglobin A1C 01/03/22 5.9%, repeat 07/28/22 6.2% ASSESSMENT: 07/30: * Patient received 12 units of insulin yesterday of which 5 were basal * Fasting BSG within goal range, continue current basal regimen * No additional stressors, will monitor for insulin accumulation with worsening renal function * Tightened Novolog parameters due to elevated evening BSGs 07/28: * Patient is a 82 F with no prior history of insulin dependent diabetes presenting with SOB. The patient received 40mg IV methylprednisolone BID starting 07/25 which has been discontinued (last dose 07/26 2058). Hyperglycemia noted 07/27 and pharmacy consulted to manage hyperglycemia. patient received 25 units of correctional insulin, 5 units of regular insulin IV Push, and 5 units of Lantus * Adjusted goal range from 140-180 to 110-140 for better glycemic control. * Loosened Novolog parameters as outlined below to a weight based stress of 2 * IV methylprednisolone discontinued, serum creatinine increasing, nephrology following, no other stressors * Will give 5 units of Lantus tonight to cover basal insulin needs PLAN FOR INPATIENT GLYCEMIC CONTROL: * Basal insulin * Lantus 5 units SQ HS (hold if below goal) * Bolus insulin * NovoLog per scale ACHS or Q6hrs while NPO * Goal Range: Low 110 mg/dL - High 140 mg/dL * Correction Factor: 25 mg/dL/unit * Nutritional / Prandial insulin per carb ratio of 1 unit per 8 grams CHO consumed
[2022-07-30] MEDS ORDERED: WARFARIN SOD 1 MG TAB PO SCH (16:00)
[2022-07-30 16:14] LABS: Albumin Globulin Ratio 1.4 (0.9-2); Albumin Level 3.7 gm/dl (3.4-5.0); BUN Creatinine Ratio 13.3 (10-20); Bilirubin,Total 0.5 mg/dl (0.2-1.0); Calcium 8.6 mg/dl (8.5-10.1); Creatinine Clr Calc Pharmacy 5.6 ml/min; Est GFR (African American) 4.9 ml/min; Est GFR (Non-African American) 4.2 ml/min; Globulin 2.7 gm/dl (2.5-4.0); Potassium 4.2 mmol/L (3.5-5.1); Total Protein 6.4 gm/dl (6.0-8.3)
[2022-07-30] MEDS: LANTUS PER UNIT CHARGE SQ SCH (20:32)
[2022-07-30] MEDS: CALCITRIOL 0.25 MCG CAPSULE PO SCH (20:32)
[2022-07-30] MEDS: ATORVASTATIN 20 MG TAB PO SCH (20:33)
[2022-07-30] MEDS ORDERED: NORMOSOL-R 1,000 ML IV SCH (22:45)
[2022-07-31 08:20] LABS: Hematocrit (blood only) 28.7 % (34.1-44.9); Hemoglobin 9.2 g/dl (12.0-16.0); Mean Corpuscular Hemoglobin 25.8 pg (25.0-34.0); Mean Corpuscular Hgb Conc 32.1 g/dL (32.0-36.0); Mean Corpuscular Volume 80.4 fL (80.0-100.0); Mean Platelet Volume 9.5 fL (9.4-12.3); Nucleated RBC # (auto) 0.02 K/uL (0-0); Nucleated RBC % (auto) 0.3 %; Platelet Count 312 K/uL (130-400); RDW Coefficient of Variation 17.7 % (11.5-14.5); RDW Standard Deviation 50.5 fL (36.4-46.3); Red Blood Count 3.57 M/uL (3.93-5.22); White Blood Count 6.48 K/ul (4.8-10.8)
[2022-07-31 08:40] LABS: Calcium 7.9 mg/dl (8.5-10.1); Est GFR (African American) 5.3 ml/min; Est GFR (Non-African American) 4.6 ml/min; Potassium 3.9 mmol/L (3.5-5.1)
[2022-07-31] MEDS: INSULIN ASPART PER UNIT SC SCH ×4 (08:49→20:27)
[2022-07-31] MEDS: SODIUM BICARBONATE 650 MG TAB PO SCH ×2 (08:50→20:28)
[2022-07-31] MEDS: FLUTICASONE/VILANTEROL 200/25MCG 14 PUFFS/INHALER INH SCH (08:50)
[2022-07-31 08:51] LABS: INR 2.5 (0.9-1.1); Prothrombin Time 25.4 Seconds (9.0-12.0)
[2022-07-31] MEDS: dilTIAZem HCL 180 MG CAPCR PO SCH (08:51)
[2022-07-31] MEDS: amLODIPine BESYLATE 5 MG TAB PO SCH (08:51)
[2022-07-31] MEDS: PARoxetine HCL 20 MG TAB PO SCH (08:52)
[2022-07-31] MEDS: ASPIRIN 81 MG ECTAB PO SCH (08:52)
--- NOTE | 2022-07-31 11:31 | Nephrology Progress Note ---
Date of Service July 31, 2022 Assessment & Plan (1) Acute on chronic renal failure: Plan: * Probable ATN due to hypoperfusion associated w/ atrial fibrillation with RVR * Now converted to nonoliguric state * Cr improved from 8.1 to 7.6 * Volume status and electrolyte balance are acceptable. No acute indication for HD * Monitor UO, PRP (2) Stage 5 chronic kidney disease not on chronic dialysis: Plan: * Baseline Cr 3.0-3.8 mg/dL. * CKD has been attributed to AIN. Renal US revealed 7.5 cm kidneys bilaterally. AVF mature for use with good thrill and bruit. Planning in-centre HD if indicated. (3) Anemia in CKD (chronic kidney disease): Plan: * Completed 1g IV Venofer 07/30/22 * Epogen 35039 units SQ 07/30/22 (4) Secondary hyperparathyroidism of renal origin: Plan: * Continue calcitriol as Rx. Serum calcium normal. (5) Atrial fibrillation with rapid ventricular response: Plan: * Heart rate remains regular. In atrial fibrillation this AM. Denies symptoms. BP acceptable. Admission and Anticipated Discharge Date Admission Date: July 25, 2022 Subjective Ms. Raygoza was evaluated in her hospital room this morning. She reports improved urine output and denies flank pain or uremic symptoms. Review of Systems 2 Constitutional: no fever Eyes: no problem reported Ear, Nose, Mouth, Throat: no problem reported Respiratory: no cough and no dyspnea Cardiovascular: no chest pain Gastrointestinal: no abdominal pain, no vomiting and no diarrhea/loose stools Neurologic: no confusion Physical Exam Constitutional: not in distress Eyes: PERRL, conjunctivae normal, anicteric sclerae ENMT: external ear and nose normal, oropharynx normal Neck: trachea midline, no thyromegaly Respiratory: normal respiratory effort, lungs clear to auscultation Cardiovascular: RRR, no murmur, no edema Gastrointestinal (Abdomen): normal bowel sounds, soft, nontender, no hepatosplenomegaly Neurologic: Speech / Cognition: normal speech and normal cognition Results & Data ([facility]) Vital Signs (Past 12 Hours) Vital Signs Temp Pulse Resp BP Pulse Ox O2 Del Method 07/31/22 08:08 36.4 C L 99 H 18 123/66 95 Room Air 07/31/22 02:46 36.5 C 68 18 112/62 94 Room Air Laboratory Results Laboratory Tests 07/31/22 07/31/22 07:53 07:53 WBC 6.48 Hgb 9.2 L Hct 28.7 L Plt Count 312 Sodium 132 L Potassium 3.9 Chloride 95 L Carbon Dioxide 25 BUN 99 H Creatinine 7.63 H* D Glucose 95 Laboratory Tests 07/30/22 14:44 Creatinine 8.11 H* PG Care Time/CCT Total # of Minutes Spent Total Time Spent with Patient: Total time spent is greater than 50% in coordination of care (as documented) at patient's floor/unit and/or counseling patient: Coding Level of Care Code 54434 SUB INP/OBS CARE 3/50MIN Diagnoses Acute on chronic renal failure N17.9; N18.9 Stage 5 chronic kidney disease not on chronic dialysis N18.5 Anemia in CKD (chronic kidney disease) N18.9; D63.1 Secondary hyperparathyroidism of renal origin N25.81 Atrial fibrillation with rapid ventricular response I48.91
--- NOTE | 2022-07-31 11:43 | Hospitalist Progress Note ---
Date of Service July 31, 2022 Assessment & Plan (1) SOB (shortness of breath): Plan: This appears to be multifactorial including chronic diastolic heart failure with atrial fibrillation with rapid ventricular response. Now back to baseline No hypoxia. Patient is 98% on room air (2) Acute on chronic renal failure: Plan: Chronic kidney disease stage V Admitted with Worsening renal function, etiology is uncertain Nephrology consulted. Patient making urine Slight improvement in Cr level, Patient does have a mature AV fistula in the left forearm. Good bruit. Has not required dialysis in the past Continue to follow serial labs Appreciate nephrology recs (3) Atrial fibrillation with rapid ventricular response: Plan: Patient was placed on diltiazem drip on admission. This was converted to diltiazem p.o. 07/26/2022 PM Patient remains in atrial fibrillation but is better rate controlled in the 70s and 80s Continue on telemetry Follow-up with Dr. Dixon as an outpatient (4) Anemia in CKD (chronic kidney disease): Plan: Iron studies ordered and reviewed Iron is 18, TIBC 343, unsaturated IBC 325, transferrin 5%, ferritin 35.4 Received Iron transfusion Follow serial labs (5) Hypercholesteremia: Plan: Continue atorvastatin (6) Asthma-COPD overlap syndrome: Plan: Follows with Dr. Castaneda as an outpatient No acute complaints today. IV methylprednisolone is been discontinued. 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 Patient also has history of provoked DVT. Retinal AA thrombosis Patient continues on Coumadin per Coumadin clinic INR is 2.5 today Resume Home dose of 3 mg p.o. daily 6 days each week. Outpatient follow-up with Coumadin clinic Plan Continue on telemetry for atrial fibrillation and acute on chronic renal failure Patient continues to require hospitalization due to rising BUN as well as creatinine. Hoping to avoid dialysis. Followed daily by nephrology Advise of any nausea, vomiting, diarrhea that is unexplained Admission and Anticipated Discharge Date Admission Date: July 25, 2022 Subjective patient seen and examined, feels overall better, making urine Review of Systems Review of Systems: All systems reviewed are negative, apart from the ones contained in the history. Physical Exam Physical Exam: The patient is awake, alert and oriented 3, well developed and well nourished, normocephalic and atraumatic, lying in bed and in no acute distress. HEENT--PERRL, EOMI, mucous membranes and oropharynx mildly dry Neck--supple. No JVD. No bruits. Thyroid normal, trachea midline, no adenopathy. Heart--normal S1 and S2. No murmurs, rubs or gallops. Lungs--clear bilaterally, no respiratory distress, no accessory muscle use. Abdomen--normal bowel sounds and soft. Mild epigastric and left sided abdominal pain Extremities--no cyanosis or clubbing. No edema. Dermatologic--normal skin turgor, normal color, no abnormal lymph nodes, no rash. Neurologic--cranial nerves II through XII grossly intact. Rheumatologic--normal range of motion. Psychiatric--normal affect. Results & Data Results & Data ([facility]) Vital Signs (Past 12 Hours) Vital Signs Temp Pulse Resp BP Pulse Ox O2 Del Method 07/31/22 08:08 97.5 F L 99 H 18 123/66 95 Room Air 07/31/22 02:46 97.7 F 68 18 112/62 94 Room Air PG Care Time/CCT Total # of Minutes Spent Total Time Spent with Patient: Total time spent is greater than 50% in coordination of care (as documented) at patient's floor/unit and/or counseling patient: Coding Level of Care Code 42450 SUB INP/OBS CARE 2/35MIN Diagnoses SOB (shortness of breath) R06.02 Acute on chronic renal failure N17.9; N18.9 Atrial fibrillation with rapid ventricular response I48.91 Anemia in CKD (chronic kidney disease) N18.9; D63.1 Hypercholesteremia E78.00 Asthma-COPD overlap syndrome J44.9 Chronic anticoagulation Z79.01 Time Spent (min) 35
[2022-07-31] MEDS: WARFARIN SOD 3 MG TAB PO SCH (16:39)
[2022-07-31] MEDS: ATORVASTATIN 20 MG TAB PO SCH (20:28)
[2022-08-01 06:16] LABS: Hematocrit (blood only) 27.8 % (34.1-44.9); INR 2.6 (0.9-1.1); Mean Corpuscular Hemoglobin 25.6 pg (25.0-34.0); Mean Corpuscular Hgb Conc 32.4 g/dL (32.0-36.0); Mean Corpuscular Volume 79.2 fL (80.0-100.0); Mean Platelet Volume 9.4 fL (9.4-12.3); Nucleated RBC # (auto) 0.02 K/uL (0-0); Nucleated RBC % (auto) 0.3 %; Platelet Count 337 K/uL (130-400); Prothrombin Time 26.2 Seconds (9.0-12.0); RDW Coefficient of Variation 18.6 % (11.5-14.5); RDW Standard Deviation 50.1 fL (36.4-46.3); Red Blood Count 3.51 M/uL (3.93-5.22)
[2022-08-01 06:41] LABS: Creatinine Clr Calc Pharmacy 6.5 ml/min; Est GFR (African American) 5.8 ml/min; Potassium 3.8 mmol/L (3.5-5.1)
[2022-08-01] MEDS: ASPIRIN 81 MG ECTAB PO SCH (08:08)
[2022-08-01] MEDS: dilTIAZem HCL 180 MG CAPCR PO SCH (08:08)
[2022-08-01] MEDS: FLUTICASONE/VILANTEROL 200/25MCG 14 PUFFS/INHALER INH SCH (08:08)
[2022-08-01] MEDS: SODIUM BICARBONATE 650 MG TAB PO SCH ×2 (08:08→20:18)
[2022-08-01] MEDS: PARoxetine HCL 20 MG TAB PO SCH (08:08)
[2022-08-01] MEDS: amLODIPine BESYLATE 5 MG TAB PO SCH (08:09)
--- NOTE | 2022-08-01 09:16 | Nephrology Progress Note ---
Date of Service August 01, 2022 Assessment & Plan (1) Acute on chronic renal failure: Plan: * Probable ATN due to hypoperfusion associated w/ atrial fibrillation with RVR * Now converted to nonoliguric state * Cr improved from 8.1 to 7.06 * Volume status and electrolyte balance are acceptable. No acute indication for HD * Monitor UO, PRP (2) Stage 5 chronic kidney disease not on chronic dialysis: Plan: * Baseline Cr 3.0-3.8 mg/dL. * CKD has been attributed to AIN. Renal US revealed 7.5 cm kidneys bilaterally. AVF mature for use with good thrill and bruit. Planning in-centre HD if indicated. (3) Anemia in CKD (chronic kidney disease): Plan: * Completed 1g IV Venofer 07/30/22 * Epogen 55561 units SQ 07/30/22 (4) Secondary hyperparathyroidism of renal origin: Plan: * Continue calcitriol as Rx. Serum calcium normal. (5) Atrial fibrillation with rapid ventricular response: Plan: * Heart rate remains regular. In atrial fibrillation this AM. Denies symptoms. BP acceptable. Admission and Anticipated Discharge Date Admission Date: July 25, 2022 Subjective Ms. Raygoza was evaluated in her hospital room this morning. She reports brisk urine output and denies flank pain or uremic symptoms. Review of Systems Constitutional: no fever Eyes: no problem reported Ear, Nose, Mouth, Throat: no problem reported Respiratory: no cough and no dyspnea Cardiovascular: no chest pain Gastrointestinal: no abdominal pain, no vomiting and no diarrhea/loose stools Genitourinary: no dysuria, no difficulty urinating and no hematuria Neurologic: no confusion Physical Exam Constitutional: not in distress Eyes: PERRL, conjunctivae normal, anicteric sclerae ENMT: external ear and nose normal, oropharynx normal Neck: trachea midline, no thyromegaly Respiratory: normal respiratory effort, lungs clear to auscultation Cardiovascular: RRR, no murmur, no edema (no rub) Gastrointestinal (Abdomen): normal bowel sounds, soft, nontender, no hepatosplenomegaly Neurologic: Speech / Cognition: normal speech and normal cognition Results & Data ([facility]) Vital Signs (Past 12 Hours) Vital Signs Temp Pulse Pulse Resp BP Pulse Ox O2 Del Method 08/01/22 07:56 36.6 C 103 H 16 125/73 95 Room Air 08/01/22 02:54 36.6 C 83 18 128/64 94 Room Air 07/31/22 23:03 36.5 C 80 18 132/62 98 Room Air 07/31/22 23:02 75 Laboratory Results Laboratory Tests 08/01/22 08/01/22 05:24 05:24 WBC 7.80 Hgb 9.0 L Hct 27.8 L Plt Count 337 Sodium 133 L Potassium 3.8 Chloride 97 L Carbon Dioxide 25 BUN 92 H Creatinine 7.06 H* D Glucose 107 H PG Care Time/CCT Total # of Minutes Spent Total Time Spent with Patient: Total time spent is greater than 50% in coordination of care (as documented) at patient's floor/unit and/or counseling patient: Coding Level of Care Code 10335 SUB INP/OBS CARE 3/50MIN Diagnoses Acute on chronic renal failure N17.9; N18.9 Stage 5 chronic kidney disease not on chronic dialysis N18.5 Anemia in CKD (chronic kidney disease) N18.9; D63.1 Secondary hyperparathyroidism of renal origin N25.81 Atrial fibrillation with rapid ventricular response I48.91
[2022-08-01] MEDS: INSULIN ASPART PER UNIT SC SCH ×4 (09:23→20:18)
--- NOTE | 2022-08-01 11:39 | Hospitalist Progress Note ---
Date of Service August 01, 2022 Assessment & Plan (1) SOB (shortness of breath): Plan: Now resolved Patient saturating well on room air (2) Acute on chronic renal failure: Plan: Chronic kidney disease stage V, with worsening on admission Much improved renal function and Cr Patient continues to make urine Patient does have a mature AV fistula in the left forearm. Good bruit. Has not required dialysis in the past Continue to follow serial labs Appreciate nephrology recs (3) Atrial fibrillation with rapid ventricular response: Plan: Patient was placed on diltiazem drip on admission. This was converted to diltiazem p.o. 07/26/2022 PM Patient remains in atrial fibrillation but is better rate controlled in the 70s and 80s Continue on telemetry Follow-up with Dr. Dixon as an outpatient (4) Anemia in CKD (chronic kidney disease): Plan: Iron studies ordered and reviewed Iron is 18, TIBC 343, unsaturated IBC 325, transferrin 5%, ferritin 35.4 Received Iron transfusion Follow serial labs (5) Hypercholesteremia: Plan: Continue atorvastatin (6) Asthma-COPD overlap syndrome: Plan: Follows with Dr. Castaneda as an outpatient No acute complaints today. IV methylprednisolone is been discontinued. 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 Patient also has history of provoked DVT. Retinal AA thrombosis Patient continues on Coumadin per Coumadin clinic INR 2.6 today Continue Home dose of 3 mg p.o. daily 6 days each week. Outpatient follow-up with Coumadin clinic Plan Continue on telemetry for atrial fibrillation and acute on chronic renal failure Hopefully d/c in the next 24-48 hrs Admission and Anticipated Discharge Date Admission Date: July 25, 2022 Subjective patient seen and examined, feels over all better, making urine, denies pains Review of Systems Review of Systems: All systems reviewed are negative, apart from the ones contained in the history. Physical Exam Physical Exam: The patient is awake, alert and oriented 3, well developed and well nourished, normocephalic and atraumatic, lying in bed and in no acute distress. HEENT--PERRL, EOMI, mucous membranes and oropharynx mildly dry Neck--supple. No JVD. No bruits. Thyroid normal, trachea midline, no adenopathy. Heart--normal S1 and S2. No murmurs, rubs or gallops. Lungs--clear bilaterally, no respiratory distress, no accessory muscle use. Abdomen--normal bowel sounds and soft. Mild epigastric and left sided abdominal pain Extremities--no cyanosis or clubbing. No edema. Dermatologic--normal skin turgor, normal color, no abnormal lymph nodes, no rash. Neurologic--cranial nerves II through XII grossly intact. Rheumatologic--normal range of motion. Psychiatric--normal affect. Results & Data Results & Data ([facility]) Vital Signs (Past 12 Hours) Vital Signs Temp Pulse Resp BP Pulse Ox O2 Del Method 08/01/22 07:56 97.9 F 103 H 16 125/73 95 Room Air 08/01/22 02:54 97.9 F 83 18 128/64 94 Room Air PG Care Time/CCT Total # of Minutes Spent Total Time Spent with Patient: Total time spent is greater than 50% in coordination of care (as documented) at patient's floor/unit and/or counseling patient: Coding Level of Care Code 61712 SUB INP/OBS CARE 2/35MIN Diagnoses SOB (shortness of breath) R06.02 Acute on chronic renal failure N17.9; N18.9 Atrial fibrillation with rapid ventricular response I48.91 Anemia in CKD (chronic kidney disease) N18.9; D63.1 Hypercholesteremia E78.00 Asthma-COPD overlap syndrome J44.9 Chronic anticoagulation Z79.01 Time Spent (min) 35
[2022-08-01] MEDS: WARFARIN SOD 0.5 MG TAB PO SCH (16:37)
[2022-08-01] MEDS: ATORVASTATIN 20 MG TAB PO SCH (20:18)
[2022-08-02 07:48] LABS: INR 2.5 (0.9-1.1); Prothrombin Time 25.3 Seconds (9.0-12.0)
[2022-08-02] MEDS: SODIUM BICARBONATE 650 MG TAB PO SCH ×2 (07:49→20:50)
[2022-08-02] MEDS: PARoxetine HCL 20 MG TAB PO SCH (07:49)
[2022-08-02] MEDS: FLUTICASONE/VILANTEROL 200/25MCG 14 PUFFS/INHALER INH SCH (07:50)
[2022-08-02] MEDS: ASPIRIN 81 MG ECTAB PO SCH (07:50)
[2022-08-02] MEDS: dilTIAZem HCL 180 MG CAPCR PO SCH (07:50)
[2022-08-02] MEDS: amLODIPine BESYLATE 5 MG TAB PO SCH (07:50)
[2022-08-02] MEDS: INSULIN ASPART PER UNIT SC SCH ×4 (07:51→20:49)
[2022-08-02 08:17] LABS: BUN Creatinine Ratio 13.7 (10-20); Calcium 8.3 mg/dl (8.5-10.1); Creatinine Clr Calc Pharmacy 7.3 ml/min; Est GFR (African American) 6.5 ml/min; Est GFR (Non-African American) 5.6 ml/min; Potassium 3.8 mmol/L (3.5-5.1)
--- NOTE | 2022-08-02 08:42 | Nephrology Progress Note ---
Date of Service August 02, 2022 Assessment & Plan (1) Acute on chronic renal failure: Plan: * Probable ATN due to hypoperfusion associated w/ atrial fibrillation with RVR * UO 875 cc last 24 hrs * Cr improved from 8.1 --> 7.06 --> 6.4 * Volume status and electrolyte balance are acceptable. No acute indication for HD * Monitor UO, PRP (2) Stage 5 chronic kidney disease not on chronic dialysis: Plan: * Baseline Cr 3.0-3.8 mg/dL. * CKD has been attributed to AIN. Renal US revealed 7.5 cm kidneys bilaterally. AVF mature for use with good thrill and bruit. Planning in-centre HD if indicated. (3) Anemia in CKD (chronic kidney disease): Plan: * Completed 1g IV Venofer 07/30/22 * Epogen 62956 units SQ 07/30/22 (4) Secondary hyperparathyroidism of renal origin: Plan: * Continue calcitriol as Rx. Serum calcium normal. (5) Atrial fibrillation with rapid ventricular response: Plan: * Heart rate remains regular. In atrial fibrillation this AM. Denies symptoms. BP acceptable. Admission and Anticipated Discharge Date Admission Date: July 25, 2022 Subjective Ms. Raygoaz was evaluated in her hospital room this morning. She reports brisk urine output and denies flank pain or uremic symptoms. Review of Systems Constitutional: no fever Eyes: no problem reported Ear, Nose, Mouth, Throat: no problem reported Respiratory: no cough and no dyspnea Cardiovascular: no chest pain Gastrointestinal: no abdominal pain, no vomiting and no diarrhea/loose stools Genitourinary: no dysuria, no difficulty urinating and no hematuria Neurologic: no confusion Physical Exam Constitutional: not in distress Eyes: PERRL, conjunctivae normal, anicteric sclerae ENMT: external ear and nose normal, oropharynx normal Neck: trachea midline, no thyromegaly Respiratory: normal respiratory effort, lungs clear to auscultation Cardiovascular: RRR, no murmur, no edema (no rub) Gastrointestinal (Abdomen): normal bowel sounds, soft, nontender, no hepa tosplenomegaly Neurologic: Speech / Cognition: normal speech and normal cognition Results & Data ([facility]) Vital Signs (Past 12 Hours) Vital Signs Temp Pulse Pulse Resp BP Pulse Ox O2 Del Method 08/02/22 07:48 36.6 C 86 20 113/68 98 Room Air 08/02/22 03:14 36.5 C 86 18 124/70 98 Room Air 08/01/22 23:31 36.5 C 82 18 127/76 99 Room Air 08/01/22 22:51 60 Laboratory Results Laboratory Tests 07/26/22 07/31/22 08/01/22 06:53 07:53 05:24 Sodium Potassium Chloride Carbon Dioxide BUN Creatinine 3.44 H 7.63 H* D 7.06 H* D Glucose 08/02/22 07:14 Sodium 134 L Potassium 3.8 Chloride 97 L Carbon Dioxide 27 BUN 88 H Creatinine 6.41 H* D Glucose 112 H PG Care Time/CCT Total # of Minutes Spent Total Time Spent with Patient: Total time spent is greater than 50% in coordination of care (as documented) at patient's floor/unit and/or counseling patient: Coding Level of Care Code 66335 SUB INP/OBS CARE 3/50MIN Diagnoses Acute on chronic renal failure N17.9; N18.9 Stage 5 chronic kidney disease not on chronic dialysis N18.5 Anemia in CKD (chronic kidney disease) N18.9; D63.1 Secondary hyperparathyroidism of renal origin N25.81 Atrial fibrillation with rapid ventricular response I48.91
--- NOTE | 2022-08-02 14:44 | Hospitalist Progress Note ---
Date of Service August 02, 2022 Assessment & Plan (1) SOB (shortness of breath): Plan: Now resolved Patient saturating well on room air (2) Acute on chronic renal failure: Plan: Chronic kidney disease stage V, with worsening on admission Likely due to ATN from hypoperfusion Much improved renal function and Cr Patient continues to make good urine Patient does have a mature AV fistula in the left forearm. Good bruit. Has not required dialysis in the past Continue to follow serial labs Appreciate nephrology recs (3) Atrial fibrillation with rapid ventricular response: Plan: Patient was placed on diltiazem drip on admission. This was converted to diltiazem p.o. 07/26/2022 PM Patient remains in atrial fibrillation but is better rate controlled in the 70s and 80s Continue on telemetry Follow-up with Dr. Dixon as an outpatient (4) Anemia in CKD (chronic kidney disease): Plan: Iron studies ordered and reviewed Iron is 18, TIBC 343, unsaturated IBC 325, transferrin 5%, ferritin 35.4 Received Iron transfusion Follow serial labs (5) Chronic anticoagulation: Plan: History of multiple bilateral pulmonary emboli 06/09/2019. Patient also has history of provoked DVT. Retinal AA thrombosis Patient continues on Coumadin per Coumadin clinic INR 2.5 today Continue Home dose of 3 mg p.o. daily 6 days each week. Outpatient follow-up with Coumadin clinic (6) Asthma-COPD overlap syndrome: Plan: Follows with Dr. Castaneda as an outpatient No acute complaints today. IV methylprednisolone is been discontinued. No bronchospasm Saturating well on room air Continue with Symbicort and as needed nebulizer treatments (7) Hypercholesteremia: Plan: Continue atorvastatin Plan Continue on telemetry for atrial fibrillation and acute on chronic renal failure Hopefully d/c in the next 24-48 hrs Admission and Anticipated Discharge Date Admission Date: July 25, 2022 Subjective patient seen and examined, continues to make good urine Review of Systems Review of Systems: All systems reviewed are negative, apart from the ones contained in the history. Physical Exam Physical Exam: The patient is awake, alert and oriented 3, well developed and well nourished, normocephalic and atraumatic, lying in bed and in no acute distress. HEENT--PERRL, EOMI, mucous membranes and oropharynx mildly dry Neck--supple. No JVD. No bruits. Thyroid normal, trachea midline, no adenopathy. Heart--normal S1 and S2. No murmurs, rubs or gallops. Lungs--clear bilaterally, no respiratory distress, no accessory muscle use. Abdomen--normal bowel sounds and soft. Mild epigastric and left sided abdominal pain Extremities--no cyanosis or clubbing. No edema. Dermatologic--normal skin turgor, normal color, no abnormal lymph nodes, no rash. Neurologic--cranial nerves II through XII grossly intact. Rheumatologic--normal range of motion. Psychiatric--normal affect. Results & Data Results & Data ([facility]) Vital Signs (Past 12 Hours) Vital Signs Temp Pulse Resp BP Pulse Ox O2 Del Method 08/02/22 11:47 97.7 F 69 18 117/66 98 Room Air 08/02/22 07:48 97.9 F 86 20 113/68 98 Room Air 08/02/22 03:14 97.7 F 86 18 124/70 98 Room Air PG Care Time/CCT Total # of Minutes Spent Total Time Spent with Patient: Total time spent is greater than 50% in coordination of care (as documented) at patient's floor/unit and/or counseling patient: Coding Level of Care Code 65278 SUB INP/OBS CARE 2/35MIN Diagnoses SOB (shortness of breath) R06.02 Acute on chronic renal failure N17.9; N18.9 Atrial fibrillation with rapid ventricular response I48.91 Anemia in CKD (chronic kidney disease) N18.9; D63.1 Chronic anticoagulation Z79.01 Asthma-COPD overlap syndrome J44.9 Hypercholesteremia E78.00 Time Spent (min) 35
[2022-08-02] MEDS: WARFARIN SOD 3 MG TAB PO SCH (17:21)
[2022-08-02] MEDS ORDERED: POLYETHYLENE (MIRALAX) 17 GM PACK PO PRN (19:35)
[2022-08-02] MEDS: ATORVASTATIN 20 MG TAB PO SCH (20:50)
[2022-08-02] MEDS: CALCITRIOL 0.25 MCG CAPSULE PO SCH (20:50)
[2022-08-03 07:05] LABS: BUN Creatinine Ratio 13.3 (10-20); Calcium 8.1 mg/dl (8.5-10.1); Creatinine Clr Calc Pharmacy 7.8 ml/min; Est GFR (African American) 6.9 ml/min; Potassium 3.6 mmol/L (3.5-5.1)
[2022-08-03 07:12] LABS: INR 2.2 (0.9-1.1); Prothrombin Time 22.4 Seconds (9.0-12.0)
[2022-08-03] MEDS: INSULIN ASPART PER UNIT SC SCH ×4 (08:16→20:21)
[2022-08-03] MEDS: amLODIPine BESYLATE 5 MG TAB PO SCH (08:28)
[2022-08-03] MEDS: ASPIRIN 81 MG ECTAB PO SCH (08:28)
[2022-08-03] MEDS: dilTIAZem HCL 180 MG CAPCR PO SCH (08:29)
[2022-08-03] MEDS: PARoxetine HCL 20 MG TAB PO SCH (08:30)
[2022-08-03] MEDS: PSYLLIUM or GUAR GUM FIBER POWDER PACKET PO SCH (08:30)
[2022-08-03] MEDS: SODIUM BICARBONATE 650 MG TAB PO SCH ×2 (08:30→20:24)
[2022-08-03] MEDS: FLUTICASONE/VILANTEROL 200/25MCG 14 PUFFS/INHALER INH SCH (08:30)
--- NOTE | 2022-08-03 08:47 | Nephrology Progress Note ---
Date of Service August 03, 2022 Assessment & Plan (1) Acute on chronic renal failure: Plan: * Probable ATN due to hypoperfusion associated w/ atrial fibrillation with RVR * UO 875 cc last 24 hrs * Cr improved from 8.1-->6.0 (EGFR 6 cc/min) * Volume status and electrolyte balance are acceptable. No acute indication for HD * Monitor UO, PRP. Would like to see Cr 4.0 or less prior to discharge from hospital (2) Stage 5 chronic kidney disease not on chronic dialysis: Plan: * Baseline Cr 3.0-3.8 mg/dL. * CKD has been attributed to AIN. Renal US revealed 7.5 cm kidneys bilaterally. AVF mature for use with good thrill and bruit. Planning in-centre HD if indicated. (3) Anemia in CKD (chronic kidney disease): Plan: * Completed 1g IV Venofer 07/30/22 * Epogen 47923 units SQ 07/30/22 (4) Secondary hyperparathyroidism of renal origin: Plan: * Continue calcitriol as Rx. Serum calcium normal. (5) Atrial fibrillation with rapid ventricular response: Plan: * Heart rate remains regular. In atrial fibrillation this AM. Denies symptoms. BP acceptable. Admission and Anticipated Discharge Date Admission Date: July 25, 2022 Subjective Ms. Raygoza was evaluated in her hospital room this morning. She reports brisk urine output and denies flank pain or uremic symptoms. Review of Systems Constitutional: no fever Eyes: no problem reported Ear, Nose, Mouth, Throat: no problem reported Respiratory: no cough and no dyspnea Cardiovascular: no chest pain Gastrointestinal: no abdominal pain, no vomiting and no diarrhea/loose stools Genitourinary: no dysuria, no difficulty urinating and no hematuria Neurologic: no confusion Physical Exam Constitutional: not in distress Eyes: PERRL, conjunctivae normal, anicteric sclerae ENMT: external ear and nose normal, oropharynx normal Neck: trachea midline, no thyromegaly Respiratory: normal respiratory effort, lungs clear to auscultation Cardiovascular: RRR, no murmur, no edema (no rub) Gastrointestinal (Abdomen): normal bowel sounds, soft, nontender, no hepatosplenomegaly Neurologic: Speech / Cognition: normal speech and normal cognition Results & Data ([facility]) Vital Signs (Past 12 Hours) Vital Signs Temp Pulse Resp BP Pulse Ox O2 Del Method 08/03/22 07:53 36.5 C 86 16 143/81 H 97 Room Air 08/03/22 02:58 36.4 C L 86 18 127/71 98 Room Air 08/02/22 23:27 36.5 C 78 18 126/72 98 Room Air Laboratory Results Laboratory Tests 08/03/22 05:59 Sodium 134 L Potassium 3.6 Chloride 97 L Carbon Dioxide 26 BUN 81 H Creatinine 6.09 H* D Est GFR (Non-Af Amer) 6.0 Glucose 113 H Calcium 8.1 L PG Care Time/CCT Total # of Minutes Spent Total Time Spent with Patient: Total time spent is greater than 50% in coordination of care (as documented) at patient's floor/unit and/or counseling patient: Coding Level of Care Code 78487 SUB INP/OBS CARE 3/50MIN Diagnoses Acute on chronic renal failure N17.9; N18.9 Stage 5 chronic kidney disease not on chronic dialysis N18.5 Anemia in CKD (chronic kidney disease) N18.9; D63.1 Secondary hyperparathyroidism of renal origin N25.81 Atrial fibrillation with rapid ventricular response I48.91
--- NOTE | 2022-08-03 10:20 | Pharmacy Report ---
Pharmacy Glycemic Short Note 2 - Date of Service August 03, 2022 - Glycemic Short BSG Results (Last 24 hours): 08/02/22 08/02/22 08/02/22 11:18 16:31 20:14 Glucose POC Glucose 188 H 71 155 H 08/03/22 08/03/22 05:59 07:24 Glucose 113 H POC Glucose 120 H OUTPATIENT ANTIDIABETIC REGIMEN: * N/A * HbA1c: 6.2% (07/28/22) ASSESSMENT: 08/03/22: * Ms Raygoza has been receiving ~5-15 units of total daily insulin for the past several days. * BSGs have been reasonably well-controlled. * Novolog parameters loosened slightly this morning to prevent over-correction (BSG 188 --> 71 mg/dL yesterday afternoon). * Pt has not received any basal insulin past couple of days. Fasting BSGs have been below goal range. * No further changes at this time. 07/30: * Patient received 12 units of insulin yesterday of which 5 were basal * Fasting BSG within goal range, continue current basal regimen * No additional stressors, will monitor for insulin accumulation with worsening renal function * Tightened Novolog parameters due to elevated evening BSGs 07/28: * Patient is a 82 F with no prior history of insulin dependent diabetes presenting with SOB. The patient received 40mg IV methylprednisolone BID starting 07/25 which has been discontinued (last dose 07/26 2058). Hyperglycemia noted 07/27 and pharmacy consulted to manage hyperglycemia. patient received 25 units of correctional insulin, 5 units of regular insulin IV Push, and 5 units of Lantus * Adjusted goal range from 140-180 to 110-140 for better glycemic control. * Loosened Novolog parameters as outlined below to a weight based stress of 2 * IV methylprednisolone discontinued, serum creatinine increasing, nephrology following, no other stressors * Will give 5 units of Lantus tonight to cover basal insulin needs PLAN FOR INPATIENT GLYCEMIC CONTROL: * Basal insulin * none at this time * Bolus insulin * NovoLog per scale ACHS or Q6hrs while NPO * Goal Range: Low 100 mg/dL - High 150 mg/dL * Correction Factor: 25 mg/dL/unit * Nutritional / Prandial insulin per carb ratio of 1 unit per 7 grams CHO consumed
--- NOTE | 2022-08-03 12:13 | Hospitalist Progress Note ---
Date of Service August 03, 2022 Assessment & Plan (1) SOB (shortness of breath): Plan: Now resolved Patient saturating well on room air (2) Acute on chronic renal failure: Plan: Chronic kidney disease stage V, with worsening on admission Likely due to ATN from hypoperfusion Much improved renal function and Cr Patient continues to make good urine However, GFR only about 6.9 Patient does have a mature AV fistula in the left forearm. Good bruit. Has not required dialysis in the past Continue to follow serial labs Appreciate nephrology recs (3) Atrial fibrillation with rapid ventricular response: Plan: Patient was placed on diltiazem drip on admission. This was converted to diltiazem p.o. 07/26/2022 PM Patient remains in atrial fibrillation but is better rate controlled in the 70s and 80s Continue on telemetry Follow-up with Dr. Dixon as an outpatient (4) Anemia in CKD (chronic kidney disease): Plan: Iron studies ordered and reviewed Iron is 18, TIBC 343, unsaturated IBC 325, transferrin 5%, ferritin 35.4 Received Iron transfusion Follow serial labs (5) Chronic anticoagulation: Plan: History of multiple bilateral pulmonary emboli 06/09/2019. Patient also has history of provoked DVT. Retinal AA thrombosis Patient continues on Coumadin per Coumadin clinic INR 2.2 today Continue Home dose of 3 mg p.o. daily 6 days each week. Outpatient follow-up with Coumadin clinic (6) Asthma-COPD overlap syndrome: Plan: Follows with Dr. Castaneda as an outpatient No acute complaints today. IV methylprednisolone is been discontinued. No bronchospasm Saturating well on room air Continue with Symbicort and as needed nebulizer treatments (7) Hypercholesteremia: Plan: Continue atorvastatin Plan Continue on telemetry for atrial fibrillation and acute on chronic renal failure Hopefully d/c when Cr drops below 4 Admission and Anticipated Discharge Date Admission Date: July 25, 2022 Subjective patient seen and examined, lying quietly in bed, denies flank pain, making good urine Review of Systems Review of Systems: All systems reviewed are negative, apart from the ones contained in the history. Physical Exam Physical Exam: The patient is awake, alert and oriented 3, well developed and well nourished, normocephalic and atraumatic, lying in bed and in no acute distress. HEENT--PERRL, EOMI, mucous membranes and oropharynx mildly dry Neck--supple. No JVD. No bruits. Thyroid normal, trachea midline, no adenopathy. Heart--normal S1 and S2. No murmurs, rubs or gallops. Lungs--clear bilaterally, no respiratory distress, no accessory muscle use. Abdomen--normal bowel sounds and soft. Mild epigastric and left sided abdominal pain Extremities--no cyanosis or clubbing. No edema. Dermatologic--normal skin turgor, normal color, no abnormal lymph nodes, no rash. Neurologic--cranial nerves II through XII grossly intact. Rheumatologic--normal range of motion. Psychiatric--normal affect. Results & Data Results & Data ([facility]) Vital Signs (Past 12 Hours) Vital Signs Temp Pulse Resp BP Pulse Ox O2 Del Method 08/03/22 07:53 97.7 F 86 16 143/81 H 97 Room Air 08/03/22 02:58 97.5 F L 86 18 127/71 98 Room Air PG Care Time/CCT Total # of Minutes Spent Total Time Spent with Patient: Total time spent is greater than 50% in coordination of care (as documented) at patient's floor/unit and/or counseling patient: Coding Level of Care Code 22097 SUB INP/OBS CARE 2/35MIN Diagnoses SOB (shortness of breath) R06.02 Acute on chronic renal failure N17.9; N18.9 Atrial fibrillation with rapid ventricular response I48.91 Anemia in CKD (chronic kidney disease) N18.9; D63.1 Chronic anticoagulation Z79.01 Asthma-COPD overlap syndrome J44.9 Hypercholesteremia E78.00 Time Spent (min) 35
[2022-08-03] MEDS: WARFARIN SOD 0.5 MG TAB PO SCH (17:12)
[2022-08-03] MEDS: ATORVASTATIN 20 MG TAB PO SCH (20:24)
[2022-08-04 06:39] LABS: Hematocrit (blood only) 26.9 % (34.1-44.9); Hemoglobin 8.7 g/dl (12.0-16.0); Mean Corpuscular Hemoglobin 26.2 pg (25.0-34.0); Mean Corpuscular Hgb Conc 32.3 g/dL (32.0-36.0); Mean Platelet Volume 9.2 fL (9.4-12.3); Platelet Count 326 K/uL (130-400); RDW Coefficient of Variation 19.1 % (11.5-14.5); RDW Standard Deviation 53.8 fL (36.4-46.3); Red Blood Count 3.32 M/uL (3.93-5.22); White Blood Count 6.47 K/ul (4.8-10.8)
[2022-08-04 06:46] LABS: INR 2.3 (0.9-1.1); Prothrombin Time 23.7 Seconds (9.0-12.0)
[2022-08-04 08:01] LABS: BUN Creatinine Ratio 12.7 (10-20); Est GFR (African American) 7.2 ml/min; Est GFR (Non-African American) 6.2 ml/min; Potassium 3.6 mmol/L (3.5-5.1)
[2022-08-04] MEDS: INSULIN ASPART PER UNIT SC SCH ×4 (08:37→20:17)
[2022-08-04] MEDS: ASPIRIN 81 MG ECTAB PO SCH (08:39)
[2022-08-04] MEDS: dilTIAZem HCL 180 MG CAPCR PO SCH (08:39)
[2022-08-04] MEDS: amLODIPine BESYLATE 5 MG TAB PO SCH (08:39)
[2022-08-04] MEDS: FLUTICASONE/VILANTEROL 200/25MCG 14 PUFFS/INHALER INH SCH (08:40)
[2022-08-04] MEDS: PARoxetine HCL 20 MG TAB PO SCH (08:40)
[2022-08-04] MEDS: SODIUM BICARBONATE 650 MG TAB PO SCH ×2 (08:40→20:20)
--- NOTE | 2022-08-04 09:08 | Nephrology Progress Note ---
Date of Service August 04, 2022 Assessment & Plan (1) Acute on chronic renal failure: Plan: * Probable ATN due to hypoperfusion associated w/ atrial fibrillation with RVR * UO 701 cc last 24 hrs * Cr improved from 8.1-->5.9 (EGFR 6 cc/min) * Volume status and electrolyte balance are acceptable. No acute indication for HD * Will provide 0.9NS at 100 cc/hr x 1 L today * Monitor UO, PRP. Would like to see Cr 4.0 or less prior to discharge from hospital (2) Stage 5 chronic kidney disease not on chronic dialysis: Plan: * Baseline Cr 3.0-3.8 mg/dL. * CKD has been attributed to AIN. Renal US revealed 7.5 cm kidneys bilaterally. AVF mature for use with good thrill and bruit. Planning in-centre HD if indicated. (3) Anemia in CKD (chronic kidney disease): Plan: * Completed 1g IV Venofer 07/30/22 * Epogen 99244 units SQ 07/30/22 (4) Secondary hyperparathyroidism of renal origin: Plan: * Continue calcitriol as Rx. Serum calcium normal. Admission and Anticipated Discharge Date Admission Date: July 25, 2022 Subjective Ms. Raygoza was evaluated in her hospital room this morning. She reports continued UO and denies flank pain or uremic symptoms. Review of Systems Constitutional: no fever Eyes: no problem reported Ear, Nose, Mouth, Throat: no problem reported Respiratory: no cough and no dyspnea Cardiovascular: no chest pain Gastrointestinal: no abdominal pain, no vomiting and no diarrhea/loose stools Genitourinary: no dysuria, no difficulty urinating and no hematuria Neurologic: no confusion Physical Exam Constitutional: not in distress Eyes: PERRL, conjunctivae normal, anicteric sclerae ENMT: external ear and nose normal, oropharynx normal Neck: trachea midline, no thyromegaly Respiratory: normal respiratory effort, lungs clear to auscultation Cardiovascular: RRR, no murmur, no edema (no rub) Gastrointestinal (Abdomen): normal bowel sounds, soft, nontender, no hepatosplenomegaly Neurologic: Speech / Cognition: normal speech and normal cognition Results & Data ([facility]) Vital Signs (Past 12 Hours) Vital Signs Temp Pulse Pulse Resp BP Pulse Ox O2 Del Method 08/04/22 07:27 36.4 C L 86 18 156/78 H 98 Room Air 08/04/22 03:08 36.4 C L 84 18 132/73 98 Room Air 08/03/22 22:46 37.0 C 76 18 145/83 H 97 Room Air 08/03/22 22:51 73 Laboratory Results Laboratory Tests 08/04/22 08/04/22 05:54 05:54 WBC 6.47 Hgb 8.7 L Hct 26.9 L Plt Count 326 Sodium 134 L Potassium 3.6 Chloride 99 Carbon Dioxide 27 BUN 75 H Creatinine 5.90 H* Glucose 100 H PG Care Time/CCT Total # of Minutes Spent Total Time Spent with Patient: Total time spent is greater than 50% in coordination of care (as documented) at patient's floor/unit and/or counseling patient: Coding Level of Care Code 55865 SUB INP/OBS CARE 3/50MIN Diagnoses Acute on chronic renal failure N17.9; N18.9 Stage 5 chronic kidney disease not on chronic dialysis N18.5 Anemia in CKD (chronic kidney disease) N18.9; D63.1 Secondary hyperparathyroidism of renal origin N25.81
[2022-08-04] MEDS: PSYLLIUM or GUAR GUM FIBER POWDER PACKET PO SCH (10:38)
[2022-08-04] MEDS ORDERED: SODIUM CHLORIDE 0.9% 1000ML 1,000 ML IV SCH (10:45)
--- NOTE | 2022-08-04 13:07 | Hospitalist Progress Note ---
Date of Service August 04, 2022 Assessment & Plan (1) SOB (shortness of breath): Plan: Now resolved Patient saturating well on room air (2) Acute on chronic renal failure: Plan: Chronic kidney disease stage V, with worsening on admission Likely due to ATN from hypoperfusion Much improved renal function and Cr continues to improve Patient continues to make good urine However, GFR only about 6.0 Patient does have a mature AV fistula in the left forearm. Good bruit. Has not required dialysis in the past Continue to follow serial labs Appreciate nephrology recs Hopefully d/c when Cr drops below 4.00 per nephrology (3) Atrial fibrillation with rapid ventricular response: Plan: Patient was placed on diltiazem drip on admission. This was converted to diltiazem p.o. 07/26/2022 PM Patient remains in atrial fibrillation but is better rate controlled in the 70s and 80s Continue on telemetry Follow-up with Dr. Dixon as an outpatient (4) Anemia in CKD (chronic kidney disease): Plan: Iron studies ordered and reviewed Iron is 18, TIBC 343, unsaturated IBC 325, transferrin 5%, ferritin 35.4 Received Iron transfusion Follow serial labs (5) Chronic anticoagulation: Plan: History of multiple bilateral pulmonary emboli 06/09/2019. Patient also has history of provoked DVT. Retinal AA thrombosis Patient continues on Coumadin per Coumadin clinic INR 2.3 today Continue Home dose of 3 mg p.o. daily 6 days each week. Outpatient follow-up with Coumadin clinic (6) Asthma-COPD overlap syndrome: Plan: Follows with Dr. Castaneda as an outpatient No acute complaints today. IV methylprednisolone is been discontinued. No bronchospasm Saturating well on room air Continue with Symbicort and as needed nebulizer treatments (7) Hypercholesteremia: Plan: Continue atorvastatin Plan Continue on telemetry for atrial fibrillation and acute on chronic renal failure Hopefully d/c when Cr drops below 4.00 Admission and Anticipated Discharge Date Admission Date: July 25, 2022 Subjective patient seen and examined, no new complaints Review of Systems Review of Systems: All systems reviewed are negative, apart from the ones contained in the history. Physical Exam Physical Exam: The patient is awake, alert and oriented 3, well developed and well nourished, normocephalic and atraumatic, lying in bed and in no acute distress. HEENT--PERRL, EOMI, mucous membranes and oropharynx mildly dry Neck--supple. No JVD. No bruits. Thyroid normal, trachea midline, no adenopathy. Heart--normal S1 and S2. No murmurs, rubs or gallops. Lungs--clear bilaterally, no respiratory distress, no accessory muscle use. Abdomen--normal bowel sounds and soft. Mild epigastric and left sided abdominal pain Extremities--no cyanosis or clubbing. No edema. Dermatologic--normal skin turgor, normal color, no abnormal lymph nodes, no rash. Neurologic--cranial nerves II through XII grossly intact. Rheumatologic--normal range of motion. Psychiatric--normal affect. Results & Data Results & Data ([facility]) Vital Signs (Past 12 Hours) Vital Signs Temp Pulse Pulse Resp BP Pulse Ox O2 Del Method 08/04/22 07:15 87 08/04/22 10:42 97.7 F 79 19 113/82 98 Room Air 08/04/22 07:27 97.5 F L 86 18 156/78 H 98 Room Air 08/04/22 03:08 97.5 F L 84 18 132/73 98 Room Air PG Care Time/CCT Total # of Minutes Spent Total Time Spent with Patient: Total time spent is greater than 50% in coordination of care (as documented) at patient's floor/unit and/or counseling patient: Coding Level of Care Code 92522 SUB INP/OBS CARE 2/35MIN Diagnoses SOB (shortness of breath) R06.02 Acute on chronic renal failure N17.9; N18.9 Atrial fibrillation with rapid ventricular response I48.91 Anemia in CKD (chronic kidney disease) N18.9; D63.1 Chronic anticoagulation Z79.01 Asthma-COPD overlap syndrome J44.9 Hypercholesteremia E78.00 Time Spent (min) 35
[2022-08-04] MEDS: WARFARIN SOD 3 MG TAB PO SCH (17:07)
[2022-08-04] MEDS: ATORVASTATIN 20 MG TAB PO SCH (20:18)
[2022-08-04] MEDS: CALCITRIOL 0.25 MCG CAPSULE PO SCH (20:19)
[2022-08-05 07:44] LABS: INR 2.1 (0.9-1.1); Prothrombin Time 21.9 Seconds (9.0-12.0)
[2022-08-05] MEDS: SODIUM BICARBONATE 650 MG TAB PO SCH ×2 (07:50→21:09)
[2022-08-05] MEDS: FLUTICASONE/VILANTEROL 200/25MCG 14 PUFFS/INHALER INH SCH (07:51)
[2022-08-05] MEDS: PARoxetine HCL 20 MG TAB PO SCH (07:51)
[2022-08-05] MEDS: dilTIAZem HCL 180 MG CAPCR PO SCH (07:51)
[2022-08-05] MEDS: amLODIPine BESYLATE 5 MG TAB PO SCH (07:51)
[2022-08-05] MEDS: ASPIRIN 81 MG ECTAB PO SCH (07:51)
[2022-08-05] MEDS: PSYLLIUM or GUAR GUM FIBER POWDER PACKET PO SCH (07:53)
[2022-08-05] MEDS: INSULIN ASPART PER UNIT SC SCH ×4 (08:01→21:03)
--- NOTE | 2022-08-05 08:47 | Nephrology Progress Note ---
Date of Service August 05, 2022 Assessment & Plan (1) Acute on chronic renal failure: Plan: * Probable ATN due to hypoperfusion associated w/ atrial fibrillation with RVR * UO 701 cc last 24 hrs * Cr improved from 8.1-->5.6 (EGFR 6 cc/min) * Volume status and electrolyte balance are acceptable. No acute indication for HD * Monitor UO, PRP. Would like to see Cr 4.0 or less prior to discharge from hospital (2) Stage 5 chronic kidney disease not on chronic dialysis: Plan: * Baseline Cr 3.0-3.8 mg/dL. * CKD has been attributed to AIN. Renal US revealed 7.5 cm kidneys bilaterally. AVF mature for use with good thrill and bruit. Planning in-centre HD if indicated. (3) Anemia in CKD (chronic kidney disease): Plan: * Completed 1g IV Venofer 07/30/22 * Epogen 39039 units SQ 07/30/22 (4) Secondary hyperparathyroidism of renal origin: Plan: * Continue calcitriol as Rx. Serum calcium normal. Admission and Anticipated Discharge Date Admission Date: July 25, 2022 Subjective Ms. Raygoza was evaluated in her hospital room this morning. She tolerated gentle hydration yesterday without dyspnea or LE swelling. Ms. Raygoza reports continued UO and denies flank pain or uremic symptoms. Review of Systems Constitutional: no fever Eyes: no problem reported Ear, Nose, Mouth, Throat: no problem reported Respiratory: no cough and no dyspnea Cardiovascular: no chest pain Gastrointestinal: no abdominal pain, no vomiting and no diarrhea/loose stools Genitourinary: no dysuria, no difficulty urinating and no hematuria Neurologic: no confusion Physical Exam Constitutional: not in distress Eyes: PERRL, conjunctivae normal, anicteric sclerae ENMT: external ear and nose normal, oropharynx normal Neck: trachea midline, no thyromegaly Respiratory: normal respiratory effort, lungs clear to auscultation Cardiovascular: RRR, no murmur, no edema (no rub) Gastrointestinal (Abdomen): normal bowel sounds, soft, nontender, no hepatosplenomegaly Neurologic: Speech / Cognition: normal speech and normal cognition Results & Data ([facility]) Vital Signs (Past 12 Hours) Vital Signs Temp Pulse Resp BP Pulse Ox O2 Del Method 08/05/22 07:51 37 C 87 18 128/72 98 Room Air 08/05/22 01:53 36.5 C 100 H 17 137/71 92 Room Air 08/04/22 22:51 36.6 C 78 18 129/73 98 Room Air Laboratory Results Laboratory Tests 08/04/22 08/05/22 05:54 07:16 WBC 6.47 Hgb 8.7 L Hct 26.9 L Plt Count 326 Sodium 134 L Potassium 3.6 Chloride 99 Carbon Dioxide 28 BUN 71 H Creatinine 5.65 H* Glucose 106 H Calcium 8.1 L PG Care Time/CCT Total # of Minutes Spent Total Time Spent with Patient: Total time spent is greater than 50% in coordination of care (as documented) at patient's floor/unit and/or counseling patient: Coding Level of Care Code 61536 SUB INP/OBS CARE 3/50MIN Diagnoses Acute on chronic renal failure N17.9; N18.9 Stage 5 chronic kidney disease not on chronic dialysis N18.5 Anemia in CKD (chronic kidney disease) N18.9; D63.1 Secondary hyperparathyroidism of renal origin N25.81
[2022-08-05 08:54] LABS: BUN Creatinine Ratio 12.6 (10-20); Calcium 8.1 mg/dl (8.5-10.1); Creatinine Clr Calc Pharmacy 8.4 ml/min; Est GFR (African American) 7.6 ml/min; Est GFR (Non-African American) 6.6 ml/min; Potassium 3.6 mmol/L (3.5-5.1)
--- NOTE | 2022-08-05 11:18 | Hospitalist Progress Note ---
Date of Service August 05, 2022 Assessment & Plan (1) SOB (shortness of breath): Plan: Now resolved Patient saturating well on room air (2) Acute on chronic renal failure: Plan: Chronic kidney disease stage V, with worsening on admission Likely due to ATN from hypoperfusion Much improved renal function and Cr continues to improve Received some IV fluids Patient continues to make good urine However, GFR only about 6.0 Patient does have a mature AV fistula in the left forearm. Good bruit. Has not required dialysis in the past Continue to follow serial labs Appreciate nephrology recs Hopefully d/c when Cr drops below 4.00 per nephrology (3) Atrial fibrillation with rapid ventricular response: Plan: Patient was placed on diltiazem drip on admission. This was converted to diltiazem p.o. 07/26/2022 PM Patient remains in atrial fibrillation but is better rate controlled in the 70s and 80s Continue on telemetry Follow-up with Dr. Dixon as an outpatient (4) Anemia in CKD (chronic kidney disease): Plan: Iron studies ordered and reviewed Iron is 18, TIBC 343, unsaturated IBC 325, transferrin 5%, ferritin 35.4 Received Iron transfusion Follow serial labs (5) Chronic anticoagulation: Plan: History of multiple bilateral pulmonary emboli 06/09/2019. Patient also has history of provoked DVT. Retinal AA thrombosis Patient continues on Coumadin per Coumadin clinic INR 2.1 today Continue Home dose of 3 mg p.o. daily 6 days each week. Outpatient follow-up with Coumadin clinic (6) Asthma-COPD overlap syndrome: Plan: Follows with Dr. Castaneda as an outpatient No acute complaints today. IV methylprednisolone is been discontinued. No bronchospasm Saturating well on room air Continue with Symbicort and as needed nebulizer treatments (7) Hypercholesteremia: Plan: Continue atorvastatin Plan Continue on telemetry for atrial fibrillation and acute on chronic renal failure Hopefully d/c when Cr drops below 4.00 Admission and Anticipated Discharge Date Admission Date: July 25, 2022 Subjective patient seen and examined, no new complaints, denies any pains Review of Systems Review of Systems: All systems reviewed are negative, apart from the ones contained in the history. Physical Exam Physical Exam: The patient is awake, alert and oriented 3, well developed and well nourished, normocephalic and atraumatic, lying in bed and in no acute distress. HEENT--PERRL, EOMI, mucous membranes and oropharynx mildly dry Neck--supple. No JVD. No bruits. Thyroid normal, trachea midline, no adenopathy. Heart--normal S1 and S2. No murmurs, rubs or gallops. Lungs--clear bilaterally, no respiratory distress, no accessory muscle use. Abdomen--normal bowel sounds and soft. Mild epigastric and left sided abdominal pain Extremities--no cyanosis or clubbing. No edema. Dermatologic--normal skin turgor, normal color, no abnormal lymph nodes, no rash. Neurologic--cranial nerves II through XII grossly intact. Rheumatologic--normal range of motion. Psychiatric--normal affect. Results & Data Results & Data ([facility]) Vital Signs (Past 12 Hours) Vital Signs Temp Pulse Pulse Resp BP Pulse Ox O2 Del Method 08/05/22 11:13 98.1 F 76 18 114/68 98 Room Air 08/05/22 10:06 77 08/05/22 07:51 98.6 F 87 18 128/72 98 Room Air 08/05/22 01:53 97.7 F 100 H 17 137/71 92 Room Air PG Care Time/CCT Total # of Minutes Spent Total Time Spent with Patient: Total time spent is greater than 50% in coordination of care (as documented) at patient's floor/unit and/or counseling patient: Coding Level of Care Code 41975 SUB INP/OBS CARE 2/35MIN Diagnoses SOB (shortness of breath) R06.02 Acute on chronic renal failure N17.9; N18.9 Atrial fibrillation with rapid ventricular response I48.91 Anemia in CKD (chronic kidney disease) N18.9; D63.1 Chronic anticoagulation Z79.01 Asthma-COPD overlap syndrome J44.9 Hypercholesteremia E78.00 Time Spent (min) 35
--- NOTE | 2022-08-05 13:01 | Pharmacy Report ---
Pharmacy Glycemic Short Note 2 - Date of Service August 05, 2022 - Glycemic Short BSG Results (Last 24 hours): 08/04/22 08/04/22 08/05/22 16:21 20:16 07:16 Glucose 106 H POC Glucose 83 150 H 08/05/22 08/05/22 07:29 11:31 Glucose POC Glucose 112 H 171 H OUTPATIENT ANTIDIABETIC REGIMEN: * N/A * HbA1c: 6.2% (07/28/22) ASSESSMENT: 08/05/22 * BSGs yesterday were 798-063-59-150 mg/dL. Patient received 19 units of bolus. * Fasting today was 112 mg/dL. Continue to hold basal. * Loosen CF as patient overcorrects when BSGs elevated. 08/03/22: * Ms Raygoza has been receiving ~5-15 units of total daily insulin for the past several days. * BSGs have been reasonably well-controlled. * Novolog parameters loosened slightly this morning to prevent over-correction (BSG 188 --> 71 mg/dL yesterday afternoon). * Pt has not received any basal insulin past couple of days. Fasting BSGs have been below goal range. * No further changes at this time. 07/30: * Patient received 12 units of insulin yesterday of which 5 were basal * Fasting BSG within goal range, continue current basal regimen * No additional stressors, will monitor for insulin accumulation with worsening renal function * Tightened Novolog parameters due to elevated evening BSGs 07/28: * Patient is a 82 F with no prior history of insulin dependent diabetes presenting with SOB. The patient received 40mg IV methylprednisolone BID starting 07/25 which has been discontinued (last dose 07/26 2058). Hyperglycemia noted 07/27 and pharmacy consulted to manage hyperglycemia. patient received 25 units of correctional insulin, 5 units of regular insulin IV Push, and 5 units of Lantus * Adjusted goal range from 140-180 to 110-140 for better glycemic control. * Loosened Novolog parameters as outlined below to a weight based stress of 2 * IV methylprednisolone discontinued, serum creatinine increasing, nephrology following, no other stressors * Will give 5 units of Lantus tonight to cover basal insulin needs PLAN FOR INPATIENT GLYCEMIC CONTROL: * Basal insulin * none at this time * Bolus insulin * NovoLog per scale ACHS or Q6hrs while NPO * Goal Range: Low 110 mg/dL - High 140 mg/dL * Correction Factor: 30 mg/dL/unit * Nutritional / Prandial insulin per carb ratio of 1 unit per 7 grams CHO consumed
[2022-08-05] MEDS: WARFARIN SOD 0.5 MG TAB PO SCH (16:11)
[2022-08-05] MEDS: ATORVASTATIN 20 MG TAB PO SCH (21:09)
[2022-08-06 07:39] LABS: BUN Creatinine Ratio 13.7 (10-20); Calcium 8.3 mg/dl (8.5-10.1); Creatinine Clr Calc Pharmacy 9.5 ml/min; Est GFR (African American) 8.7 ml/min; Est GFR (Non-African American) 7.5 ml/min; Potassium 3.6 mmol/L (3.5-5.1)
[2022-08-06 07:45] LABS: INR 1.9 (0.9-1.1)
[2022-08-06] MEDS: PSYLLIUM or GUAR GUM FIBER POWDER PACKET PO SCH (07:58)
[2022-08-06] MEDS: SODIUM BICARBONATE 650 MG TAB PO SCH (07:58)
[2022-08-06] MEDS: dilTIAZem HCL 180 MG CAPCR PO SCH (07:58)
[2022-08-06] MEDS: ASPIRIN 81 MG ECTAB PO SCH (07:59)
[2022-08-06] MEDS: PARoxetine HCL 20 MG TAB PO SCH (07:59)
[2022-08-06] MEDS: FLUTICASONE/VILANTEROL 200/25MCG 14 PUFFS/INHALER INH SCH (07:59)
[2022-08-06] MEDS: amLODIPine BESYLATE 5 MG TAB PO SCH (07:59)
[2022-08-06] MEDS: INSULIN ASPART PER UNIT SC SCH ×2 (08:03→11:46)
--- NOTE | 2022-08-06 09:08 | Nephrology Progress Note ---
Date of Service August 06, 2022 Assessment & Plan (1) Acute on chronic renal failure: Plan: * Probable ATN due to hypoperfusion associated w/ atrial fibrillation with RVR * Cr improved to 5.0 (baseline 3.8) * Volume status and electrolyte balance are acceptable. No acute indication for HD * Patient is clearly within the recovery phase of ATN. We reviewed a low potassium diet this morning. We discussed possible discharge to home. Ms. Raygoza would like to return home today and follow up w/ Dr Rivas in 1 week. I have placed EMR request to office staff to schedule the outpatient appointment and placed orders for nonfasting blood work prior to the visit. (2) Stage 5 chronic kidney disease not on chronic dialysis: Plan: * Baseline Cr 3.0-3.8 mg/dL. * CKD has been attributed to AIN. Renal US revealed 7.5 cm kidneys bilaterally. AVF mature for use with good thrill and bruit. Planning in-centre HD if indicated. (3) Anemia in CKD (chronic kidney disease): Plan: * Completed 1g IV Venofer 07/30/22 * Epogen 45060 units SQ 07/30/22 (4) Secondary hyperparathyroidism of renal origin: Plan: * Continue calcitriol as Rx. Serum calcium normal. Admission and Anticipated Discharge Date Admission Date: July 25, 2022 Subjective Ms. Raygoza was evaluated in her hospital room this morning. She reports food UO and notes that her LE swelling is gradually improving. She denies flank pain or uremic symptoms. Review of Systems Constitutional: no fever Eyes: no problem reported Ear, Nose, Mouth, Throat: no problem reported Respiratory: no cough and no dyspnea Cardiovascular: no chest pain Gastrointestinal: no abdominal pain, no vomiting and no diarrhea/loose stools Genitourinary: no dysuria, no difficulty urinating and no hematuria Neurologic: no confusion Physical Exam Constitutional: not in distress Eyes: PERRL, conjunctivae normal, anicteric sclerae ENMT: external ear and nose normal, oropharynx normal Neck: trachea midline, no thyromegaly Respiratory: normal respiratory effort, lungs clear to auscultation Cardiovascular: RRR, no murmur, no edema (no rub) Gastrointestinal (Abdomen): normal bowel sounds, soft, nontender, no hepatosplenomegaly Neurologic: Speech / Cognition: normal speech and normal cognition Results & Data ([facility]) Vital Signs (Past 12 Hours) Vital Signs Temp Pulse Pulse Resp BP Pulse Ox O2 Del Method 08/06/22 07:28 36.6 C 85 18 147/80 H 97 Room Air 08/06/22 03:30 36.9 C 94 H 18 136/76 97 Room Air 08/06/22 01:04 73 08/05/22 22:20 36.9 C 83 18 133/76 98 Room Air Laboratory Results Laboratory Tests 08/06/22 06:30 Sodium 133 L Potassium 3.6 Chloride 97 L Carbon Dioxide 28 BUN 69 H Creatinine 5.03 H* D Glucose 100 H Calcium 8.3 L PG Care Time/CCT Total # of Minutes Spent Total Time Spent with Patient: Total time spent is greater than 50% in coordination of care (as documented) at patient's floor/unit and/or counseling patient: Coding Level of Care Code 09487 SUB INP/OBS CARE 3/50MIN Diagnoses Acute on chronic renal failure N17.9; N18.9 Stage 5 chronic kidney disease not on chronic dialysis N18.5 Anemia in CKD (chronic kidney disease) N18.9; D63.1 Secondary hyperparathyroidism of renal origin N25.81
--- NOTE | 2022-08-06 12:31 | Discharge Summary ---
"Date of Service August 06, 2022 Admission HPI Per Admitting Provider 82-year-old female presents to the emergency department with respiratory distress shortness of breath. Patient had a few days of worsening at home. Patient is a history of COPD and use her home inhalers without improvement. Patient has history of diastolic heart failure elevated BNP and A. fib RVR presentation with congestive changes seen on chest x-ray she was given Lasix therapy steroids and inhaled medications for treatment of both a acute exacerbation of chronic respiratory failure and atrial fibrillation RVR with acute diastolic on chronic diastolic heart failure. Viral screening on presentation was negative Principal Diagnosis TUCKER on CKD Discharge Exam The patient is awake, alert and oriented 3, well developed and well nourished, normocephalic and atraumatic, lying in bed and in no acute distress. HEENT--PERRL, EOMI, mucous membranes and oropharynx mildly dry Neck--supple. No JVD. No bruits. Thyroid normal, trachea midline, no adenopathy. Heart--normal S1 and S2. No murmurs, rubs or gallops. Lungs--clear bilaterally, no respiratory distress, no accessory muscle use. Abdomen--normal bowel sounds and soft. Mild epigastric and left sided abdominal pain Extremities--no cyanosis or clubbing. No edema. Dermatologic--normal skin turgor, normal color, no abnormal lymph nodes, no rash. Neurologic--cranial nerves II through XII grossly intact. Rheumatologic--normal range of motion. Psychiatric--normal affect. Discharge Data Allergies Allergy/AdvReac Type Severity Reaction Status Date / Time Sulfa (Sulfonamide Allergy Intermediate HEADACHE, Verified 07/25/22 16:55 Antibiotics) VERTIGO Consultations 07/27/22 16:33 Consult Nephrology Routine Ordered Studies 07/27/22 16:38 US Renal Bladder [US renal/blad retro comp] Urgent Hospital Course (1) SOB (shortness of breath): Now resolved Patient saturating well on room air (2) Acute on chronic renal failure: Chronic kidney disease stage V, with worsening on admission Likely due to ATN from hypoperfusion Much improved renal function and Cr continues to improve Received some IV fluids Patient continues to make good urine However, GFR only about 6.0 Patient does have a mature AV fistula in the left forearm. Good bruit. Has not required dialysis in the past Continue to follow serial labs Appreciate nephrology recs Cr 5.00 today. D/C home per nephrology Outpatient follow up with nephrology (3) Atrial fibrillation with rapid ventricular response: Patient was placed on diltiazem drip on admission. This was converted to diltiazem p.o. 07/26/2022 PM Patient remains in atrial fibrillation but is better rate controlled in the 70s and 80s Continue on telemetry Follow-up with Dr. Dixon as an outpatient (4) Anemia in CKD (chronic kidney disease): Iron studies ordered and reviewed Iron is 18, TIBC 343, unsaturated IBC 325, transferrin 5%, ferritin 35.4 Received Iron transfusion Follow serial labs (5) Chronic anticoagulation: History of multiple bilateral pulmonary emboli 06/09/2019. Patient also has history of provoked DVT. Retinal AA thrombosis Patient continues on Coumadin per Coumadin clinic INR 2.1 today Continue Home dose of 3 mg p.o. daily 6 days each week. Outpatient follow-up with Coumadin clinic (6) Asthma-COPD overlap syndrome: Follows with Dr. Castaneda as an outpatient No acute complaints today. IV methylprednisolone is been discontinued. No bronchospasm Saturating well on room air Continue with Symbicort and as needed nebulizer treatments (7) Hypercholesteremia: Continue atorvastatin Plan d/c home. Total Time Total Time Spent Total Time Spent (In Minutes): 35 Discharge Plan Discharge Items Patient Disposition: Home - Self-Care Reason For Visit: ACUTE ON CH RESP FAILURE|AFIB RVR|ACUTE ON CH [place] Discharge Diagnosis: TUCKER on CKD Activity: Resume your previous activity Non-emergency contact: Primary Care Provider and [employer] Call non-emergency contact if: you have any medication questions Follow-up/Referrals: Ksenia Rivas MD [Physician] - 08/16/22 3:00 pm Soledad Meier MD [Primary Care Provider] - 08/18/22 3:00 pm (Will see ARIA Salas at [facility] office) Diet: Dialysis Renal Addtl Attending Provider Instructions: please make appointment to follow up with your healthcare risk control consultant Pending Studies at Discharge: No Stand-Alone Forms: My Fannect, Smoking Cessation Medications and DC Order Prescriptions: New diltiazem HCl 180 mg Capsule,Extended Release 24hr 360 mg PO QAM 30 Days Qty: 60 0RF Continued aspirin [Adult Low Dose Aspirin] 81 mg tablet,delayed release (DR/EC) 81 mg PO HS warfarin 3 mg tablet See Rx Instructions .ROUTE .COMPLEX Rx Instructions: TAKES QPM-- 0 MG ON MONDAYS, THEN 3 MG ALL OTHER DAYS. per [facility] orally use as directed; amlodipine 5 mg tablet 5 mg PO DAILY Qty: 90 3RF epoetin kole 40,000 unit/mL solution 40,000 unit subcut .q2w 60 Days 6RF Rx Instructions: Hold for Hgb >10.5 Procrit 40,000 unit/mL solution 40,000 unit subcut ONCE Qty: 1 0RF diphenhydramine-acetaminophen [Tylenol PM Extra Strength] 25-500 mg tablet 2 tab PO HS Symbicort 160-4.5 mcg/actuation HFA aerosol inhaler 2 puff INH BID Qty: 10.2 11RF albuterol sulfate 90 mcg/actuation HFA aerosol inhaler 2 puff INH Q6H PRN (Reason: Shortness Of Breath Or Wheezing) Qty: 18 4RF fluticasone propionate [Allergy Relief (fluticasone)] 50 mcg/actuation spray,suspension 1 spray INTNAS DAILY Qty: 9.9 3RF Rx Instructions: administer into each nostril once daily meclizine 12.5 mg tablet 12.5 mg PO TID PRN (Reason: dizziness) Qty: 30 0RF calcitriol 0.5 mcg capsule 0.5 mcg PO 3XWK Rx Instructions: TAKES MON, WED, & FRI. IN THE HS. lorazepam 0.5 mg tablet 0.5 mg PO TID PRN (Reason: Anxiety) atorvastatin 20 mg tablet 20 mg PO HS paroxetine HCl 40 mg tablet 40 mg PO HS Discharge Orders: Discharge Order (Routine); Ordered 08/06/22 Ordered By: Adolfo Beaulieu/Other Patient Handouts: AFib Admission Data Admit Date/Time: 07/25/22 17:02 Attending Provider: Adolfo Barnes Admit Provider: Yassine Rockwell Primary Care Provider: Soledad Meier Other Providers: Kevin Callahan Other Interventions: Discharge Summary Assessment (RN) Last Done: 08/06/22 11:11 Coding Level of Care Code HOSP INP/OBS DISCH >30 MIN Diagnoses SOB (shortness of breath) R06.02 Acute on chronic renal failure N17.9; N18.9 Atrial fibrillation with rapid ventricular response I48.91 Anemia in CKD (chronic kidney disease) N18.9; D63.1 Chronic anticoagulation Z79.01 Asthma-COPD overlap syndrome J44.9 Hypercholesteremia E78.00 Time Spent (min) 35"
== END 2022-08-06 13:44 | disposition home or self-care (01) | DRG 308 ==
LOC: ED 14:42 → 2S 17:02 → SUATTDRO 17:02 → 2S 19:57

== ENCOUNTER 2022-08-14 11:25 | Inpatient (IN) ==
[2022-08-14] MEDS ORDERED: methylPREDNISolone 125 MG/2 ML VIAL IV STA (11:45)
[2022-08-14] MEDS ORDERED: ALBUT/IPRATROP 3MG/0.5MG NEB 3 ML VIAL NEB STA (11:45)
--- NOTE | 2022-08-14 11:46 | Emergency Department Note ---
Impression & Plan Acute dyspnea ADMIT ED Provider Note HPI: The patient is a 82-year-old female with history of atrial fibrillation, currently on Coumadin, history of COPD, presents emergency department with a chief complaint of shortness of breath. Patient states her symptoms have been worsening over the past several days. On arrival here to the ED the patient is noted to be tachycardic in the 120s, she is borderline oxygen saturations at 91% on my initial evaluation does display some mild increased work of breathing. Patient denies any chest pain, denies any recent fever cough. Patient is afebrile on arrival. ROS: - Per HPI *Outpatient medications and allergy history reviewed. *Pertinent external medical records reviewed. PE: General: Alert HEENT: Normocephalic, trachea midline Eyes: Extraocular eye movement is intact, no scleral erythema Pulmonary: Diminished breath sounds bilaterally, no wheezing or crackles Cardio: Tachycardic rate with a regular rhythm GI: Abdomen is soft, nontender : No suprapubic tenderness MSK: No evidence of trauma or malformation of the extremities, no edema Skin: No evidence of rash Neuro: Alert, no focal deficits Psychiatric: Cooperative hall monitor: - An order was placed for continuous cardiac monitoring - Patient was noted to be in irregular rhythm with a rate of 122 EKG #1: (As interpreted by myself): Rate: 124 Rhythm: Accelerated junctional rhythm Intervals: Within normal limits ST changes: No ST elevation Time: 1139 EKG #2: Rate: 81 Rhythm: Sinus rhythm Intervals: Within normal limits ST changes: No ST elevation Time: 1231 Interventions provided in ED: -IV diltiazem, IV Lasix Medical Decision Making: The patient is an 82-year-old female who presented to the emergency department chief complaint of shortness of breath for the past 2 to 3 days, patient was recently admitted here to the hospital for multiple issues including dyspnea, atrial fibrillation, chronic kidney disease. On arrival here to the ED the patient is borderline oxygen saturations and does display some mild increased w ork of breathing, she was given a DuoNeb breathing treatment, IV was established, lab work obtained, patient was placed on cafeteria monitor. Chest x-ray shows bilateral pleural effusions at the bases, lab work shows elevated BNP, creatinine is 3.4 which appears to be improved from patient's discharge lab work. Troponin is negative, EKG initially is concerning for atrial fibrillation with RVR, patient was given a dose of diltiazem and heart rate did improved into the 80s, repeat EKG shows sinus rhythm. Patient's INR level is slightly subtherapeutic at 1.9. She denies any chest pain, have low suspicion for PE. On reassessment, patient states she is feeling improved but she still does have some mild tachypnea, she was ambulated here in the ED by the bedside RN and ambulatory pulse ox shows desaturation to 86% with increased work of breathing. Family does exhibit concern that the patient may not do well as she lives at home alone and they have been helping her daily with her activities of daily living. Given this, I did discuss the case with the on-call hospitalist, Dr. Singleton, the patient was placed for admission in stable condition for further care. Disposition discussion held by myself with: Patient and daughter at the bedside Critical care time: 35 minutes -Stabilization of tachyarrhythmia requiring IV rate control medications for improvement, time spent at the bedside, management of hypoxia with ambulation with oxygen saturations at 86% on room air, discussion with family, discussion with other physicians and arrangement of admission Diagnosis: 1. Hypoxia with ambulation 2. Dyspnea, acute 3. Elevated BNP level 4. Bilateral pleural effusions 5. Chronic kidney disease 6. 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 Vitamin D deficiency Surgical History Hx of hysterectomy Family History Mother Blood clot in vein Father Myocardial infarction Sister Blood clot in vein Aunt Blood clot in vein Social History Smoking Status: Never smoker Second Hand Exposure: Yes (Long family history); Hx Alcohol Use: No Hx Substance Use: No Preferred Language: Bengali Communication Ability: Effective Visual Impairment: Limited Hearing Ability: Use of Hearing Aid Wardrobe Custodian Required: No Beliefs That Will Affect Care: None marital status: / Current Living Situation: Alone current occupational status: retired How many Children do You have: 3 Feels Safe at Home: Yes Childhood Exposure to Second-Hand Smoke: Yes caffeine: No Dental Care, Regularly: Yes Physical Activity Frequency: Does not Exercise Seatbelt Use: always Sunscreen Use: Yes Assistive Devices: Cane and Walker Allergies Allergies Allergy/AdvReac Type Severity Reaction Status Date / Time Sulfa (Sulfonamide Allergy Intermediate HEADACHE, Verified 07/25/22 16:55 Antibiotics) VERTIGO Home Meds Home Medications Medication Instructions Recorded Confirmed lorazepam 0.5 mg tablet 0.5 mg PO TID PRN Anxiety 06/12/19 07/25/22 aspirin 81 mg tablet,delayed 81 mg PO HS 07/02/19 07/25/22 release (Adult Low Dose Aspirin) calcitriol 0.5 mcg capsule 0.5 mcg PO 3XWK 03/24/22 07/25/22 diphenhydramine 25 2 tab PO HS 04/26/22 07/25/22 mg-acetaminophen 500 mg tablet (Tylenol PM Extra Strength) warfarin 3 mg tablet See Rx Instructions .Route .COMPLEX 06/16/22 07/25/22 atorvastatin 20 mg tablet 20 mg PO HS 07/25/22 07/25/22 paroxetine HCl 40 mg tablet 40 mg PO HS 07/25/22 07/25/22 Previous Rx's Medication Instructions Recorded epoetin kole 40,000 unit/mL 40,000 unit subcut .q2w 60 days 07/15/21 injection solution albuterol sulfate 90 mcg/actuation 2 puff inhalation Q6H PRN 11/30/21 aerosol inhaler Shortness Of Breath Or Wheezing #18 grams budesonide-formoterol HFA 160 2 puff inhalation BID #10.2 grams 11/30/21 mcg-4.5 mcg/actuation aerosol inhaler (Symbicort) fluticasone propionate 50 1 spray intranasal DAILY #9.9 grams 11/30/21 mcg/actuation nasal spray,suspension (Allergy Relief (fluticasone)) amlodipine 5 mg tablet 5 mg PO DAILY #90 tabs 02/26/22 meclizine 12.5 mg tablet 12.5 mg PO TID PRN dizziness #30 06/10/22 tabs diltiazem HCl 180 mg 360 mg PO QAM 30 days #60 caps 08/06/22 capsule,extended release 24 hr Results & Data (ED) Vital Signs Vital Signs - 24 hr 08/14/22 11:29 08/14/22 11:44 08/14/22 11:26 Temperature 36.8 C Temperature Source Temporal Artery Scan Pulse Rate 123 H 114 H Pulse Rate [Exercises] Pulse Rate [Recovery] Pulse Rate [Resting] Pulse Rhythm Irregular Respiratory Rate 25 H 22 Respiratory Rate [Exercises] Respiratory Rate [Recovery] Respiratory Rate [Resting] Blood Pressure 139/81 Blood Pressure Mean 100 Pulse Oximetry 91 92 92 Pulse Oximetry [Exercises] Pulse Oximetry [Recovery] Pulse Oximetry [Resting] Oxygen Delivery Method Room Air Room Air Room Air Oxygen Flow Rate 0 Sepsis Recent Fever Within 48 Hours No Sepsis New/Unexplained Change in Mental Status N/A Sepsis Action Taken by Nursing No Action Required 08/14/22 13:04 Temperature Temperature Source Pulse Rate Pulse Rate [Exercises] 96 H Pulse Rate [Recovery] 92 H Pulse Rate [Resting] 86 Pulse Rhythm Respiratory Rate Respiratory Rate [Exercises] 30 H Respiratory Rate [Recovery] 28 H Respiratory Rate [Resting] 26 H Blood Pressure Blood Pressure Mean Pulse Oximetry Pulse Oximetry [Exercises] 86 L Pulse Oximetry [Recovery] 89 L Pulse Oximetry [Resting] 92 Oxygen Delivery Method Room Air Oxygen Flow Rate 0 Sepsis Recent Fever Within 48 Hours Sepsis New/Unexplained Change in Mental Status Sepsis Action Taken by Nursing Laboratory Data 08/14/22 11:55 08/14/22 11:55 Lab Results 08/14/22 08/14/22 08/14/22 Range/Units 11:55 11:55 11:55 WBC 6.09 (4.8-10.8) K/ul RBC 3.51 L (3.93-5.22) M/uL Hgb 9.3 L (12.0-16.0) g/dl Hct 29.6 L (34.1-44.9) % MCV 84.3 (80.0-100.0) fL MCH 26.5 (25.0-34.0) pg MCHC 31.4 L (32.0-36.0) g/dL RDW Std Deviation 56.1 H (36.4-46.3) fL RDW Coeff of Alice 18.8 H (11.5-14.5) % Plt Count 252 (130-400) K/uL MPV 9.0 L (9.4-12.3) fL Immature Gran % (Auto) 0.2 % Neut % (Auto) 84.0 % Lymph % (Auto) 7.7 % [place] % (Auto) 6.4 % Eos % (Auto) 1.0 % Baso % (Auto) 0.7 % Neut # (Auto) 5.12 (1.4-6.5) K/uL Lymph # (Auto) 0.47 L (1.2-3.4) K/uL [place] # (Auto) 0.39 (0.24-0.82) K/uL Eos # (Auto) 0.06 (0-0.50) K/uL Baso # (Auto) 0.04 (0-0.2) K/uL Immature Gran # (Auto) 0.01 (0.00-0.02) K/uL PT 19.3 H (9.0-12.0) Seconds INR 1.9 H (0.9-1.1) APTT 35.0 H (21.0-31.0) Seconds PTT Ratio 1.3 Sodium 137 (136-145) mmol/L Potassium 4.4 (3.5-5.1) mmol/L Chloride 103 (98-107) mmol/L Carbon Dioxide 26 (21-32) mmol/L Anion Gap 8 (3-11) BUN 47 H (6-23) mg/dl Creatinine 3.83 H (0.6-1.2) mg/dl Est Cr Clr Drug Dosing Not Reportable Est GFR ( Amer) 12.2 ml/min Est GFR (Non-Af Amer) 10.5 ml/min BUN/Creatinine Ratio 12.3 (10-20) Glucose 148 H (70-99(Fasting)) mg/dl Calcium 9.5 (8.5-10.1) mg/dl Total Bilirubin 0.7 (0.2-1.0) mg/dl AST 27 (13-39) U/L ALT 57 H (7-52) U/L Alkaline Phosphatase 81 (34-104) U/L Troponin I High Sens 14.0 (0-14) pg/ml B-Natriuretic Peptide (0-100) pg/ml Total Protein 6.6 (6.0-8.3) gm/dl Albumin 3.7 (3.4-5.0) gm/dl Globulin 2.9 (2.5-4.0) gm/dl Albumin/Globulin Ratio 1.3 (0.9-2) Lipase 86 H (11-82) U/L SARS-CoV-2 (PCR) (Negative) Influenza Type A (PCR) (Neg) Influenza Type B (PCR) (Neg) RSV (RT-PCR) (Neg) 08/14/22 08/14/22 Range/Units 11:55 12:00 WBC (4.8-10.8) K/ul RBC (3.93-5.22) M/uL Hgb (12.0-16.0) g/dl Hct (34.1-44.9) % MCV (80.0-100.0) fL MCH (25.0-34.0) pg MCHC (32.0-36.0) g/dL RDW Std Deviation (36.4-46.3) fL RDW Coeff of Alice (11.5-14.5) % Plt Count (130-400) K/uL MPV (9.4-12.3) fL Immature Gran % (Auto) % Neut % (Auto) % Lymph % (Auto) % [place] % (Auto) % Eos % (Auto) % Baso % (Auto) % Neut # (Auto) (1.4-6.5) K/uL Lymph # (Auto) (1.2-3.4) K/uL [place] # (Auto) (0.24-0.82) K/uL Eos # (Auto) (0-0.50) K/uL Baso # (Auto) (0-0.2) K/uL Immature Gran # (Auto) (0.00-0.02) K/uL PT (9.0-12.0) Seconds INR (0.9-1.1) APTT (21.0-31.0) Seconds PTT Ratio Sodium (136-145) mmol/L Potassium (3.5-5.1) mmol/L Chloride (98-107) mmol/L Carbon Dioxide (21-32) mmol/L Anion Gap (3-11) BUN (6-23) mg/dl Creatinine (0.6-1.2) mg/dl Est Cr Clr Drug Dosing Est GFR ( Amer) ml/min Est GFR (Non-Af Amer) ml/min BUN/Creatinine Ratio (10-20) Glucose (70-99(Fasting)) mg/dl Calcium (8.5-10.1) mg/dl Total Bilirubin (0.2-1.0) mg/dl AST (13-39) U/L ALT (7-52) U/L Alkaline Phosphatase (34-104) U/L Troponin I High Sens (0-14) pg/ml B-Natriuretic Peptide 1077 H (0-100) pg/ml Total Protein (6.0-8.3) gm/dl Albumin (3.4-5.0) gm/dl Globulin (2.5-4.0) gm/dl Albumin/Globulin Ratio (0.9-2) Lipase (11-82) U/L SARS-CoV-2 (PCR) NEGATIVE (Negative) Influenza Type A (PCR) Negative (Neg) Influenza Type B (PCR) Negative (Neg) RSV (RT-PCR) Negative (Neg) Administered Medications Discontinued Medications Albuterol (Albut/Ipratrop 3mg/0.5mg Neb 3 Ml Vial) 3 ml NEB NOW STA; Protocol Stop: 08/14/22 11:46 Last Admin: 08/14/22 12:11 Dose: 3 ml Documented By: OSEI Diltiazem HCl (Diltiazem Hcl 5 Mg/Ml 5 Ml Vial) 10 mg IV NOW STA Stop: 08/14/22 12:04 Last Admin: 08/14/22 12:11 Dose: 10 mg Documented By: OSEI Co-signed By: VENICE Methylprednisolone (Methylprednisolone 125 Mg/2 Ml Vial) 125 mg IV NOW STA Stop: 08/14/22 11:46 Last Admin: 08/14/22 12:48 Dose: Not Given Documented By: OSEI Imaging Data Radiologist's Impression: Chest X-Ray 08/14/22 11:44 XR chest 1V portable CLINICAL HISTORY: Chest pain, nonspecific TECHNIQUE: Single frontal radiograph of the chest was obtained. Comparison: Comparison is made to chest radiograph 07/25/2022 FINDINGS: No lines and tubes are seen. Cardiomegaly is noted. Faint bibasilar airspace opacities are seen. Small bilateral pleural effusions are seen. IMPRESSION: Small bilateral pleural effusions are seen. Bilateral lower lung airspace opacities may represent layering effusion, atelectasis, and/or aspiration /pneumonia. ACT 112: Negative or not required by law. Electronically signed by: Real Powell M.D. 08/14/2022 12:09 PM Discharge Plan Visit Data Chief Complaint: Shortness of Breath/Dyspnea Stated Complaint: HARD TIME BREATHING ED Provider: Сергей Nunes Discharge Problem: Acute dyspnea Patient Disposition: Admitted As Inpatient Condition: Good Forms Stand Alone Forms: [facility] Emergency Department, Important Visit Information Prescriptions Prescriptions: No Action aspirin [Adult Low Dose Aspirin] 81 mg tablet,delayed release (DR/EC) 81 mg PO HS warfarin 3 mg tablet See Rx Instructions .ROUTE .COMPLEX Rx Instructions: TAKES QPM-- 0 MG ON MONDAYS, THEN 3 MG ALL OTHER DAYS. per [facility] orally use as directed; amlodipine 5 mg tablet 5 mg PO DAILY Qty: 90 3RF epoetin kole 40,000 unit/mL solution 40,000 unit subcut .q2w 60 Days 6RF Rx Instructions: Hold for Hgb >10.5 Procrit 40,000 unit/mL solution 40,000 unit subcut ONCE Qty: 1 0RF diphenhydramine-acetaminophen [Tylenol PM Extra Strength] 25-500 mg tablet 2 tab PO HS Symbicort 160-4.5 mcg/actuation HFA aerosol inhaler 2 puff INH BID Qty: 10.2 11RF albuterol sulfate 90 mcg/actuation HFA aerosol inhaler 2 puff INH Q6H PRN (Reason: Shortness Of Breath Or Wheezing) Qty: 18 4RF fluticasone propionate [Allergy Relief (fluticasone)] 50 mcg/actuation spray,suspension 1 spray INTNAS DAILY Qty: 9.9 3RF Rx Instructions: administer into each nostril once daily meclizine 12.5 mg tablet 12.5 mg PO TID PRN (Reason: dizziness) Qty: 30 0RF calcitriol 0.5 mcg capsule 0.5 mcg PO 3XWK Rx Instructions: TAKES MON, WED, & FRI. IN THE HS. lorazepam 0.5 mg tablet 0.5 mg PO TID PRN (Reason: Anxiety) atorvastatin 20 mg tablet 20 mg PO HS paroxetine HCl 40 mg tablet 40 mg PO HS diltiazem HCl 180 mg Capsule,Extended Release 24hr 360 mg PO QAM 30 Days Qty: 60 0RF Referrals Referrals: Soledad Meier MD [Primary Care Provider] -
[2022-08-14] MEDS ORDERED: dilTIAZem HCl 5 MG/ML 5 ML VIAL IV STA (12:03)
[2022-08-14 12:04] LABS: Basophils # (auto) 0.04 K/uL (0-0.2); Basophils % (auto) 0.7 %; Eosinophils # (auto) 0.06 K/uL (0-0.50); Hematocrit (blood only) 29.6 % (34.1-44.9); Hemoglobin 9.3 g/dl (12.0-16.0); Immature Granulocytes # (auto) 0.01 K/uL (0.00-0.02); Immature Granulocytes % (auto) 0.2 %; Lymphocytes # (auto) 0.47 K/uL (1.2-3.4); Lymphocytes % (auto) 7.7 %; Mean Corpuscular Hemoglobin 26.5 pg (25.0-34.0); Mean Corpuscular Hgb Conc 31.4 g/dL (32.0-36.0); Mean Corpuscular Volume 84.3 fL (80.0-100.0); Monocytes # (auto) 0.39 K/uL (0.24-0.82); Monocytes % (auto) 6.4 %; Neutrophils # (auto) 5.12 K/uL (1.4-6.5); Platelet Count 252 K/uL (130-400); RDW Coefficient of Variation 18.8 % (11.5-14.5); RDW Standard Deviation 56.1 fL (36.4-46.3); Red Blood Count 3.51 M/uL (3.93-5.22); White Blood Count 6.09 K/ul (4.8-10.8)
--- NOTE | 2022-08-14 12:11 | XRay Report ---
XR chest 1V portable CLINICAL HISTORY: Chest pain, nonspecific TECHNIQUE: Single frontal radiograph of the chest was obtained. Comparison: Comparison is made to chest radiograph 07/25/2022 FINDINGS: No lines and tubes are seen. Cardiomegaly is noted. Faint bibasilar airspace opacities are seen. Smal l bilateral pleural effusions are seen. IMPRESSION: Small bilateral pleural effusions are seen. Bilateral lower lung airspace opacities may represent lay ering effusion, atelectasis, and/or aspiration/pneumonia. ACT 112: Negative or not required by law. Electronically signed by: Real Powell M.D. 08/14/2022 12:09 PM
[2022-08-14 12:15] LABS: INR 1.9 (0.9-1.1); Partial Thromboplastin Ratio 1.3; Prothrombin Time 19.3 Seconds (9.0-12.0)
[2022-08-14 12:26] LABS: Alanine Aminotransferase 57 U/L (7-52); Albumin Globulin Ratio 1.3 (0.9-2); Albumin Level 3.7 gm/dl (3.4-5.0); Alkaline Phosphatase 81 U/L (34-104); Anion Gap 8 (3-11); Aspartate Aminotransferase 27 U/L (13-39); BUN Creatinine Ratio 12.3 (10-20); Bilirubin,Total 0.7 mg/dl (0.2-1.0); Blood Urea Nitrogen 47 mg/dl (6-23); Calcium 9.5 mg/dl (8.5-10.1); Carbon Dioxide 26 mmol/L (21-32); Chloride 103 mmol/L (98-107); Est GFR (African American) 12.2 ml/min; Est GFR (Non-African American) 10.5 ml/min; Globulin 2.9 gm/dl (2.5-4.0); Glucose 148 mg/dl (70-99(Fasting)); Lipase 86 U/L (11-82); Potassium 4.4 mmol/L (3.5-5.1); Sodium 137 mmol/L (136-145); Total Protein 6.6 gm/dl (6.0-8.3)
[2022-08-14] MEDS ORDERED: FUROSEMIDE INJ 20 MG/2 ML VIAL IV ONE (12:41)
[2022-08-14 12:45] LABS: Influenza A virus by PCR Negative (Neg); Influenza B virus by PCR Negative (Neg); RSV by PCR Negative (Neg); SARS CoV2 RNA(COVID-19) Ceph NEGATIVE (Negative)
--- NOTE | 2022-08-14 13:15 | History & Physical Report ---
Date of Service August 14, 2022 Assessment & Plan (1) Acute dyspnea: Plan: - Does have some chronic dyspnea per cardiology note from March, likely secondary to the development of pulmonary HTN from history of b/l PE. - Today's exacerbation appears to be multifactorial including acute HF with known severe MR + atrial fibrillation with rapid ventricular response. Patient was given intravenous Solu-Medrol as well as furosemide and started on diltiazem 10mg IV with rate now in 80s. - CXR shows small bilateral pleural effusions with bilateral lower lung space opacities possibly representing layer of lesion versus atelectasis versus pneumonia. - Low suspicion for infectious etiology given normal WBC w/o left shift and w/o fever/chills, cough, sputum production. Suspect more likely her a fib or accelerated junctional rhythm with known diastolic heart failure led to volume overload. - Will admit to PCU for continued diuresis, Laisx 20mg BID with titration goal to 1-1.5L net negative dailoy, as well as HR control with continuation of diltiazem 180 mg with prn Lopressor 2.5mg for sustained tachycardia >130. - Echo updated no admission earlier this month, no need fo repeat. (2) Atrial fibrillation with rapid ventricular response: Plan: - AC with Warfarin, goal INR 2-3, 1.9 today. - Dosed 3mg x6 days/week. - Continue Coumadin, INR in AM. (3) Severe mitral regurgitation: Plan: - Known since 2005, possibly 2/2 rheumatic heart disease, left ventricular systolic function and end diastolic diameter have remained stable. - Echo earlier this month: LV SF normal, borderline RV enlargement, LA moderately dilated, RA mild to moderately dilated, moderate mitral annular calcification with severe MR, mild to moderate TR. RVSP elevated 40 to 50 mmHg. - EF 55-60%. 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 Not currently a dialysis patient, but has AVF mature for use with good thrill and bruit - Patient has a history of chronic kidney disease stage V on dialysis. If she does not make significant urine output to volume offload her we need to discuss with nephrology whether she should pursue dialysis. - Per nephrology note from May 15 the patient has an unclear etiology of her chronic kidney disease with never having a biopsy. Her work-up had been negative in the office she remains on calcitriol erythropoietin 40,000 units twice a month typically she sees Dr. Rivas. (5) Secondary hyperparathyroidism of renal origin: Plan: - Continue calcitriol as Rx. Serum calcium normal. (6) Anemia: Plan: - Hgb 9.3 stable at baseline, continue to monitor. (7) Chronic anticoagulation: Plan: - History of multiple bilateral pulmonary emboli 06/09/2019. Patient also has history of provoked DVT. Retinal AA thrombosis. - Remains on Coumadin. (8) Asthma-COPD overlap syndrome: Plan: - Continue home inhalers. - Received loading dose of steroids with breathing treatment in ED. Will defer on further steroids as I do not think this is a COPD flare, reports worsening function on last admission with steroids. (9) Hypertension: Plan: -Continue amlodipine. (10) Hypercholesteremia: Plan: - Continue atorvastatin 20 mg daily. (11) Anxiety: Plan: -Continue paroxetine, lorazepam 0.5 mg 3 times daily as needed. Plan - Admit to PCU. - SCDs, continue Coumadin for VTE ppx. - Full Code. History of Present Illness Chief Complaint: shortness of breath x several days Primary Care Provider: Soledad Meier MD Martha Raygoza is an 82-year-old female with a past medical history significant for A. fib, COPD, HFpEF, CKD stage V not on dialysis, anemia, hyperlipidemia, and anxiety is presenting today with shortness of breath. For the past few days she has had a gradual development of worsening dyspnea on exertion, now feeling short of breath even at rest. She is noticing more fullness in her face but otherwise no worsening swelling in legs or abdomen, weight the same as discharge weight on 08/07.She has not had and chest pain or palpitations, fever/chills, myalgias, cough or sputum production. On presentation her heart rate was 114 found to be in afib RVR otherwise vital signs within normal notes, 92% on room air. Labs notable for Hgb 9.3, at her baseline. INR 1.9, subtherapeutic. BUN 47, creatinine 3.83, at baseline. BNP 1077, troponin 14. Lipase 86, ALT 57. COVID/flu/RSV negative. CXR shows small bilateral pleural effusions with bilateral lower lung space opacities possibly representing layer of lesion versus atelectasis versus pneumonia. Patient given albuterol treatment, 125 mg IV steroids, 20 mg Lasix and 10 mg IV diltiazem in ED. Repeat EKG shows sinus rhythm with PACs, rate 81 BPM. Allergies Allergy/AdvReac Type Severity Reaction Status Date / Time Sulfa (Sulfonamide Allergy Intermediate HEADACHE, Verified 07/25/22 16:55 Antibiotics) VERTIGO Home Medications Medication Instructions Recorded Confirmed Type lorazepam 0.5 mg tablet 0.5 mg PO TID PRN Anxiety 06/12/19 07/25/22 History aspirin 81 mg tablet,delayed 81 mg PO HS 07/02/19 07/25/22 History release (Adult Low Dose Aspirin) epoetin kole 40,000 unit/mL 40,000 unit subcut .q2w 60 days 07/15/21 07/25/22 Rx injection solution albuterol sulfate 90 mcg/actuation 2 puff inhalation Q6H PRN 11/30/21 07/25/22 Rx aerosol inhaler Shortness Of Breath Or Wheezing #18 grams budesonide-formoterol HFA 160 2 puff inhalation BID #10.2 grams 11/30/21 07/25/22 Rx mcg-4.5 mcg/actuation aerosol inhaler (Symbicort) fluticasone propionate 50 1 spray intranasal DAILY #9.9 grams 11/30/21 07/25/22 Rx mcg/actuation nasal spray,suspension (Allergy Relief (fluticasone)) amlodipine 5 mg tablet 5 mg PO DAILY #90 tabs 02/26/22 07/25/22 Rx calcitriol 0.5 mcg capsule 0.5 mcg PO 3XWK 03/24/22 07/25/22 History diphenhydramine 25 2 tab PO HS 04/26/22 07/25/22 History mg-acetaminophen 500 mg tablet (Tylenol PM Extra Strength) meclizine 12.5 mg tablet 12.5 mg PO TID PRN dizziness #30 06/10/22 07/25/22 Rx tabs warfarin 3 mg tablet See Rx Instructions .Route .COMPLEX 06/16/22 07/25/22 History atorvastatin 20 mg tablet 20 mg PO HS 07/25/22 07/25/22 History paroxetine HCl 40 mg tablet 40 mg PO HS 07/25/22 07/25/22 History diltiazem HCl 180 mg 360 mg PO QAM 30 days #60 caps 08/06/22 Rx capsule,extended release 24 hr Past Med/Surg History Medical History Anxiety Bilateral pulmonary embolism Central retinal artery occlusion, left eye Chronic anticoagulation Hypercholesteremia Mixed conductive and sensorineural hearing loss of left ear with restricted hearing of right ear Recurrent UTI 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 Severe mitral regurgitation Stage 5 chronic kidney disease not on chronic dialysis Vitamin D deficiency Surgical History Hx of hysterectomy Family History Mother Blood clot in vein Father Myocardial infarction Sister Blood clot in vein Aunt Blood clot in vein Social History Smoking Status: Never smoker Second Hand Exposure: No; Do You Dip or Chew Tobacco: No; Tobacco Cessation Education Requested by Patient: No Hx Alcohol Use: No Hx Substance Use: No Preferred Language: Samoan Communication Ability: Effective Visual Impairment: Limited Hearing Ability: Use of Hearing Aid Commission Auditor Required: No Beliefs That Will Affect Care: None marital status: / Current Living Situation: Alone current occupational status: retired How many Children do You have: 3 Other Information That Helps Us Care for You: No Feels Safe at Home: Yes Safety Concerns: Feels Safe At This Time Childhood Exposure to Second-Hand Smoke: Yes caffeine: No Dental Care, Regularly: Yes Physical Activity Frequency: Does not Exercise Seatbelt Use: always Sunscreen Use: Yes Assistive Devices: Denture - Upper, Hearing Aid - Left and Walker Assistive Devices Comment: partial upper denture Review of Systems Review of Systems: Constitutional: No fever/chills, weakness, fatigue, myalgias, anorexia, night sweats Eyes: No diplopia, no worsening or blurred vision ENT: normal hearing, no trouble swallowing Respiratory: dyspnea at rest and on exertion x several days without cough or sputum production Cardiovascular: No chest pain, tightness or palpitations Abdomen: No pain, nausea, vomiting, diarrhea or constipation : Denies dysuria, hematuria, increased urgency/frequency, urinary retention Musculoskeletal: No joint pain, calf pain, swelling Neurologic: No weakness, numbness/tingling, or balance problems Psychiatric: No anxiety or depression Skin: No rash or itch Physical Exam Physical Exam: General: awake, alert, no apparent distress Head: Normocephalic, atraumatic ENT: PERRL, EOMI, no pharyngeal exudate, mucous membranes moist Chest: crackles at b/l lung bases; on room air Cardiac: Regular rate and rhythm, no JVD, normal peripheral pulses, good capillary refill Abdominal: NABS x 4 quadrants, soft, nontender to palpation, no rebound, guarding or tenderness Extremities: Normal inspection, no peripheral edema or erythema, calfs nontender to palpation Psych: Normal mood and affect Neuro: AAO x 3, strength intact bilaterally and rated 5/5, no motor deficits, speech is clear, no peripheral sensory deficits Skin: no rash or erythema Results & Data Results & Data ([facility]) Vital Signs (Past 12 Hours) Vital Signs Temp Pulse Pulse Pulse Pulse Resp Resp 08/14/22 13:04 96 H 92 H 86 30 H 08/14/22 11:26 08/14/22 11:44 114 H 22 08/14/22 11:29 36.8 C 123 H 25 H Resp Resp BP Pulse Ox Pulse Ox Pulse Ox Pulse Ox 08/14/22 13:04 28 H 26 H 86 L 89 L 92 08/14/22 11:26 92 08/14/22 11:44 92 08/14/22 11:29 139/81 91 O2 Del Method O2 Flow Rate 08/14/22 13:04 Room Air 0 08/14/22 11:26 Room Air 0 08/14/22 11:44 Room Air 08/14/22 11:29 Room Air Laboratory Results Abnormal lab results 08/14/22 08/14/22 08/14/22 Range/Units 11:55 11:55 11:55 RBC 3.51 L (3.93-5.22) M/uL Hgb 9.3 L (12.0-16.0) g/dl Hct 29.6 L (34.1-44.9) % MCHC 31.4 L (32.0-36.0) g/dL RDW Std Deviation 56.1 H (36.4-46.3) fL RDW Coeff of Alice 18.8 H (11.5-14.5) % MPV 9.0 L (9.4-12.3) fL Lymph # (Auto) 0.47 L (1.2-3.4) K/uL PT 19.3 H (9.0-12.0) Seconds INR 1.9 H (0.9-1.1) APTT 35.0 H (21.0-31.0) Seconds VBG pH (7.36-7.41) VBG pCO2 (38-50) mmHg BUN 47 H (6-23) mg/dl Creatinine 3.83 H (0.6-1.2) mg/dl Glucose 148 H (70-99(Fasting)) mg/dl ALT 57 H (7-52) U/L B-Natriuretic Peptide (0-100) pg/ml Lipase 86 H (11-82) U/L 08/14/22 08/14/22 Range/Units 11:55 13:14 RBC (3.93-5.22) M/uL Hgb (12.0-16.0) g/dl Hct (34.1-44.9) % MCHC (32.0-36.0) g/dL RDW Std Deviation (36.4-46.3) fL RDW Coeff of Alice (11.5-14.5) % MPV (9.4-12.3) fL Lymph # (Auto) (1.2-3.4) K/uL PT (9.0-12.0) Seconds INR (0.9-1.1) APTT (21.0-31.0) Seconds VBG pH 7.42 H (7.36-7.41) VBG pCO2 37 L (38-50) mmHg BUN (6-23) mg/dl Creatinine (0.6-1.2) mg/dl Glucose (70-99(Fasting)) mg/dl ALT (7-52) U/L B-Natriuretic Peptide 1077 H (0-100) pg/ml Lipase (11-82) U/L Diagnostic Findings Chest X-Ray 08/14/22 11:44 XR chest 1V portable CLINICAL HISTORY: Chest pain, nonspecific TECHNIQUE: Single frontal radiograph of the chest was obtained. Comparison: Comparison is made to chest radiograph 07/25/2022 FINDINGS: No lines and tubes are seen. Cardiomegaly is noted. Faint bibasilar airspace opacities are seen. Small bilateral pleural effusions are seen. IMPRESSION: Small bilateral pleural effusions are seen. Bilateral lower lung airspace opacities may represent layering effusion, atelectasis, and/or aspiration/pneumonia. ACT 112: Negative or not required by law. Electronically signed by: Real Powell M.D. 08/14/2022 12:09 PM ECG Additional Comments: EKG 08/14/22 1231: Sinus rhythm with Premature atrial complexes Low voltage QRS Cannot rule out Anterior infarct (cited on or before 14-AUG-2022) Abnormal ECG When compared with ECG of 14-AUG-2022 11:39, (unconfirmed) Sinus rhythm has replaced Junctional rhythm Vent. rate has decreased BY 43 BPM Serial changes of Anterior infarct Present EKG 08/14/22 1139: Poor data quality, interpretation may be adversely affected Accelerated Junctional rhythm Low voltage QRS Cannot rule out Anterior infarct , age undetermined Lateral injury pattern. Code Status & VTE Plan Code Status Full Code. Supervising Physician Co-Signing Physician Notes Patient seen and examined, chart reviewed, case discussed with Julissa Ramires PA-C and I agree with the assessment and plan as above except as otherwise noted Labs and images reviewed Martha is an 82-year-old female with a past medical history of COPD, heart failure preserved ejection fraction, CKD 5, anemia, hyperlipidemia, A. fib on warfarin who presented to the ER with accelerated junctional rhythm rate 114 and shortness of breath. CXR showing small bilateral pleural effusions with bilateral lower lung opacities. No leukocytosis, hemoglobin 9.3, sodium 137/potassium 4.4/creatinine 3.83. BNP is elevated to 1077, last 1001. Suspect patient's acute rapid rate precipitated by fluid overload, which in turn may have been worsened in the setting of rate related congestion. Patient did improve in the ER following treat with 10 mg of diltiazem and 20 mg of Lasix. Continue home rate control, and will add on-call metoprolol for sustained tachycardia with hold parameters. Lasix twice daily continued, adjust for target net output 1-1.5 L negative daily. PG Care Time/CCT Total # of Minutes Spent Total Time Spent with Patient: Total time spent is greater than 50% in coordination of care (as documented) at patient's floor/unit and/or counseling patient: Coding Level of Care Code 75106 INT INP/OBS CARE 2/55MIN Diagnoses Acute dyspnea R06.00 Atrial fibrillation with rapid ventricular response I48.91 Severe mitral regurgitation I34.0 Stage 5 chronic kidney disease not on chronic dialysis N18.5 Secondary hyperparathyroidism of renal origin N25.81 Anemia D64.89 Anemia type: other cause Other causes of anemia: other cause, not classified Chronic anticoagulation Z79.01 Asthma-COPD overlap syndrome J44.9 Hypertension I10 Hypercholesteremia E78.00 Anxiety F41.9 (1) Anemia Anemia type: other cause Other causes of anemia: other cause, not classified Qualified Code(s): D64.89 - Other specified anemias
[2022-08-14 13:24] LABS: Base Excess VBG -0.2 mEq/L; HCO3 VBG 24 mmol/L; Oxygen Saturation VBG 86.8 %; PCO2 VBG 37 mmHg (38-50); PO2 VBG 52 mmHg; pH VBG 7.42 (7.36-7.41)
[2022-08-14] MEDS ORDERED: ACETAMINOPHEN 325 MG TAB PO PRN ×2 (14:35→14:59)
[2022-08-14] MEDS ORDERED: MECLIZINE 12.5 MG TAB PO PRN (14:35)
[2022-08-14] MEDS ORDERED: ONDANSETRON INJ 2 MG/ML 2 ML VIAL IV PRN (14:35)
[2022-08-14] MEDS ORDERED: METOPROLOL TARTRATE 1 MG/ML VIAL IV PRN (14:35)
[2022-08-14] MEDS ORDERED: ALBUTEROL HFA 8 GM INHALER INH PRN (14:35)
[2022-08-14] MEDS ORDERED: POLYETHYLENE (MIRALAX) 17 GM PACK PO PRN (14:35)
[2022-08-14] MEDS ORDERED: MELATONIN 3 MG TAB PO PRN (14:59)
--- NOTE | 2022-08-14 15:34 | Electrocardiogram Report ---
Test Reason : Blood Pressure : / mmHG Vent. Rate : 124 BPM Atrial Rate : 127 BPM P-R Int : 000 ms QRS Dur : 086 ms QT Int : 254 ms P-R-T Axes : 000 052 220 degrees QTc Int : 364 ms Poor data quality, interpretation may be adversely affected Atrial fibrillation Low voltage QRS Abnormal ECG When compared with ECG of 27-JUL-2022 04:43, Vent. rate has increased BY 44 BPM T wave inversion now evident in Inferior leads T wave inversion now evident in Lateral leads Confirmed by Roque Jorge ([id number]) on 08/14/2022 3:33:57 PM Referred By: ED Confirmed By:Roque Jorge
--- NOTE | 2022-08-14 15:35 | Electrocardiogram Report ---
Test Reason : Blood Pressure : / mmHG Vent. Rate : 081 BPM Atrial Rate : 081 BPM P-R Int : 160 ms QRS Dur : 076 ms QT Int : 378 ms P-R-T Axes : 045 035 060 degrees QTc Int : 439 ms Sinus rhythm with Premature atrial complexes Low voltage QRS Poor R wave progression, consider anterior OH vs. lead placement vs. LVH Abnormal ECG When compared with ECG of 14-AUG-2022 11:39, (unconfirmed) Sinus rhythm has replaced probably Afib Vent. rate has decreased BY 43 BPM Anterior infarct Present Confirmed by Roque Jorge ([id number]) on 08/14/2022 3:34:54 PM Referred By: REFERRED SELF Confirmed By:Roque Jorge
[2022-08-14] MEDS: WARFARIN SOD 3 MG TAB PO SCH (16:17)
[2022-08-14] MEDS: FUROSEMIDE INJ 20 MG/2 ML VIAL IV SCH (16:17)
[2022-08-14] MEDS: ASPIRIN 81 MG ECTAB PO SCH (20:27)
[2022-08-14] MEDS: PARoxetine HCL 20 MG TAB PO SCH (20:27)
[2022-08-14] MEDS: FLUTICASONE/VILANTEROL 200/25MCG 14 PUFFS/INHALER INH SCH (20:28)
[2022-08-14] MEDS: ATORVASTATIN 20 MG TAB PO SCH (20:28)
[2022-08-14] MEDS ORDERED: NON-FORMULARY MEDICATION (Diphenhydramine-Acetaminophen [Tylenol Pm Extra Strength] 25-500 PO SCH (21:00)
[2022-08-15 06:45] LABS: Basophils # (auto) 0.03 K/uL (0-0.2); Basophils % (auto) 0.6 %; Eosinophils # (auto) 0.14 K/uL (0-0.50); Eosinophils % (auto) 2.8 %; Hematocrit (blood only) 27.7 % (34.1-44.9); Hemoglobin 8.6 g/dl (12.0-16.0); Immature Granulocytes # (auto) 0.02 K/uL (0.00-0.02); Immature Granulocytes % (auto) 0.4 %; Lymphocytes # (auto) 0.69 K/uL (1.2-3.4); Lymphocytes % (auto) 13.6 %; Mean Corpuscular Hemoglobin 25.8 pg (25.0-34.0); Mean Corpuscular Volume 83.2 fL (80.0-100.0); Monocytes # (auto) 0.47 K/uL (0.24-0.82); Monocytes % (auto) 9.3 %; Neutrophils # (auto) 3.72 K/uL (1.4-6.5); Neutrophils % (auto) 73.3 %; Platelet Count 247 K/uL (130-400); RDW Coefficient of Variation 18.9 % (11.5-14.5); RDW Standard Deviation 56.4 fL (36.4-46.3); Red Blood Count 3.33 M/uL (3.93-5.22); White Blood Count 5.07 K/ul (4.8-10.8)
[2022-08-15 07:21] LABS: INR 2.2 (0.9-1.1); Prothrombin Time 22.2 Seconds (9.0-12.0)
[2022-08-15] MEDS: dilTIAZem HCL 180 MG CAPCR PO SCH (07:44)
[2022-08-15] MEDS: amLODIPine BESYLATE 5 MG TAB PO SCH (07:44)
[2022-08-15] MEDS: FLUTICASONE PROPIONATE NA SPR 16 GM BTL SCH (07:45)
[2022-08-15] MEDS: FUROSEMIDE INJ 20 MG/2 ML VIAL IV SCH ×2 (07:45→16:40)
[2022-08-15 07:57] LABS: Calcium 8.7 mg/dl (8.5-10.1); Magnesium 1.9 mg/dl (1.7-2.4); Potassium 4.3 mmol/L (3.5-5.1)
[2022-08-15 08:03] LABS: BUN Creatinine Ratio 11.8 (10-20); Creatinine Clr Calc Pharmacy 12.5 ml/min; Est GFR (African American) 12.5 ml/min; Est GFR (Non-African American) 10.8 ml/min
--- NOTE | 2022-08-15 12:07 | Hospitalist Progress Note ---
Date of Service August 15, 2022 Assessment & Plan (1) Acute on chronic diastolic CHF (congestive heart failure): Plan: Improving with Lasix diuresis. We will repeat chest x-ray tomorrow, August 16. Hydralazine added for afterload reduction to ease the strain on the severe mitral regurgitation. (2) Severe mitral regurgitation: Plan: Low-dose hydralazine added. Afterload reduction may help (3) Hypertension: Plan: Currently on diltiazem. Hydralazine has also been added. 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 Daily INR (5) Stage 5 chronic kidney disease not on chronic dialysis: Plan: Monitor intake and output. Serial lab studies (6) Chronic kidney disease, stage V: Plan: As above (7) History of pulmonary embolism: Plan: Continue Coumadin therapy (8) Atrial fibrillation with rapid ventricular response: Plan: Uncertain if this is new or old. Present on admission. Regardless, she is on Coumadin therapy and is therapeutic. Diltiazem drip has been switched to diltiazem CD. Telemetry. Cardiac echo reveals normal ejection fraction with left and right atrial enlargement and severe mitral regurgitation. Plan Anticipate eventual discharge back to home Admission and Anticipated Discharge Date Admission Date: August 14, 2022 Subjective Alert and oriented. She had orthopnea at home but now is feeling better. She has known severe mitral regurgitation and would benefit from afterload reduction. Ejection fraction is preserved. Blood pressure should tolerate akash tion of low-dose hydralazine. Creatinine stable at 3.7 and will be watched daily. We will repeat chest x-ray tomorrow. INR 2.2 today. She is 94% saturation on 1 L oxygen at this time. Good diuresis so far with intravenous Lasix. OT and PT assessments ordered Review of Systems Review of Systems: Constitutional-no fever or chills ENT-no blurred vision, no double vision, no epistaxis, no sore throat Respiratory-orthopnea and shortness of breath with minimal exertion. No cough. No hemoptysis Cardiac-no palpitations, no chest pain, no syncope GI-no nausea, vomiting, diarrhea, melena, hematochezia -no urinary retention, no urinary incontinence, no dysuria, no hematuria Musculoskeletal-no joint pain, no muscle tenderness Skin-no bruising, no rashes, no pruritus Neuro-no isolated weakness, no paresthesia, no weakness Psych-no depression, no anxiety Physical Exam Physical Exam: General-alert and oriented x3, no fevers, no chills HEENT-head atraumatic and normocephalic, pupils equal and reactive to light, extraocular muscles intact Neck-no lymphadenopathy or thyromegaly, trachea midline Chest-bibasilar inspiratory rales. No wheezing Cardiac-irregular rhythm consistent with atrial fibrillation. Controlled rate. Grade 2/6 blowing systolic murmur at the apex Abdomen-normal bowel sounds, nontender, no hepatosplenomegaly Extremities-1+ pitting edema distal bilateral lower extremities Neuro-cranial nerves II through XII intact, motor and sensory function within normal limits, strength symmetrical , no focal deficits Psych-normal affect, normal mood Results & Data Results & Data ([facility]) Vital Signs (Past 12 Hours) Vital Signs Temp Pulse Pulse Resp BP Pulse Ox O2 Del Method 08/15/22 10:58 36.8 C 93 H 18 138/78 92 Room Air 08/15/22 08:00 Nasal Cannula 08/15/22 07:15 36.4 C L 83 18 138/71 94 Nasal Cannula 08/15/22 07:07 81 08/15/22 03:55 36.7 C 82 16 148/76 H 94 Nasal Cannula O2 Flow Rate 08/15/22 10:58 08/15/22 08:00 1 08/15/22 07:15 1 08/15/22 07:07 08/15/22 03:55 2 Laboratory Results 08/15/22 06:23 08/15/22 06:23 PG Care Time/CCT Total # of Minutes Spent Total Time Spent with Patient: Total time spent is greater than 50% in coordination of care (as documented) at patient's floor/unit and/or counseling patient: Coding Level of Care Code 51068 SUB INP/OBS CARE 3/50MIN Diagnoses Acute on chronic diastolic CHF (congestive heart failure) I50.33 Severe mitral regurgitation I34.0 Hypertension 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
[2022-08-15] MEDS: hydrALAZINE 10 MG TAB PO SCH ×3 (12:49→21:01)
[2022-08-15] MEDS: WARFARIN SOD 3 MG TAB PO SCH (16:39)
[2022-08-15] MEDS: FLUTICASONE/VILANTEROL 200/25MCG 14 PUFFS/INHALER INH SCH (20:57)
[2022-08-15] MEDS: PARoxetine HCL 20 MG TAB PO SCH (20:57)
[2022-08-15] MEDS: ASPIRIN 81 MG ECTAB PO SCH (20:58)
[2022-08-15] MEDS: ATORVASTATIN 20 MG TAB PO SCH (20:58)
[2022-08-16 06:06] LABS: Basophils # (auto) 0.05 K/uL (0-0.2); Eosinophils # (auto) 0.18 K/uL (0-0.50); Eosinophils % (auto) 3.5 %; Hematocrit (blood only) 28.3 % (34.1-44.9); Hemoglobin 9.1 g/dl (12.0-16.0); Immature Granulocytes # (auto) 0.01 K/uL (0.00-0.02); Immature Granulocytes % (auto) 0.2 %; Lymphocytes # (auto) 1.04 K/uL (1.2-3.4); Mean Corpuscular Hemoglobin 26.8 pg (25.0-34.0); Mean Corpuscular Hgb Conc 32.2 g/dL (32.0-36.0); Mean Corpuscular Volume 83.5 fL (80.0-100.0); Mean Platelet Volume 9.2 fL (9.4-12.3); Monocytes % (auto) 9.6 %; Neutrophils # (auto) 3.42 K/uL (1.4-6.5); Neutrophils % (auto) 65.7 %; Platelet Count 267 K/uL (130-400); RDW Coefficient of Variation 18.8 % (11.5-14.5); RDW Standard Deviation 56.9 fL (36.4-46.3); Red Blood Count 3.39 M/uL (3.93-5.22)
[2022-08-16 06:19] LABS: INR 2.2 (0.9-1.1); Prothrombin Time 22.4 Seconds (9.0-12.0)
[2022-08-16 06:40] LABS: BUN Creatinine Ratio 12.8 (10-20); Calcium 8.9 mg/dl (8.5-10.1); Creatinine Clr Calc Pharmacy 12.3 ml/min; Est GFR (African American) 12.5 ml/min; Est GFR (Non-African American) 10.8 ml/min; Potassium 4.2 mmol/L (3.5-5.1)
[2022-08-16] MEDS: hydrALAZINE 10 MG TAB PO SCH ×4 (07:55→20:23)
[2022-08-16] MEDS: dilTIAZem HCL 180 MG CAPCR PO SCH (07:56)
[2022-08-16] MEDS: FUROSEMIDE INJ 20 MG/2 ML VIAL IV SCH ×2 (07:56→16:26)
[2022-08-16] MEDS: FLUTICASONE PROPIONATE NA SPR 16 GM BTL SCH (07:56)
[2022-08-16] MEDS: amLODIPine BESYLATE 5 MG TAB PO SCH (07:56)
--- NOTE | 2022-08-16 13:07 | Nephrology Consultation ---
Date of Consultation August 16, 2022 Assessment & Plan (1) Chronic kidney disease, stage V: (2) Anemia in CKD (chronic kidney disease): (3) Atrial fibrillation with rapid ventricular response: (4) Pleural effusion: (5) Pulmonary hypertension: (6) Severe mitral regurgitation: (7) Hypertension: (8) Secondary hyperparathyroidism of renal origin: Plan 82 y o f with Stage 5 CKD, b/l cr 3.6-3.8, eGFR 10-12, unclear etiology for CKD ( presented late and never had biopsy with h/o thromboembolic disease and high risk to stop anticoagulant), admitted with SOB, A fib with RVR, volume overload. Renal function has been stable at baseline. b/l Pl effusion with worsening of rt pl effusion on CXR this am. Electrolyte acceptable. Has mature left BC AV fistula. Renal function staying relatively stable, electrolyte acceptable. No lower extremity edema, shortness of breath improved. Hemoglobin low. --continue IV lasix, accurate intake and output, aim for net negative, may need to increase to 40 mg iv bid. May need to consider pleural tap as rt pl effusion worsened. --continue calcitriol 0.5 mcg 3 times a week. --give Epogen 37466 units x 1 dose today. -- avoid all NSAIDs,left arm nephrology precaution. --no indication for SPANISH TRANSLATOR,continue to monitor Will follow. Thank you for allowing me to participate in your patient's care. It was a pleasure to see Martha. History of Present Illness Reason for Consultation: stage 5 CKD, anemia, volume overload. Attending Physician: Mercedes Martin MD History of Present Illness Ms. Martha Raygoza is a 82-year-old female with PMH significant for stage 5 CKD, HTN, h/o PE, recent TUCKER in the setting of AFib, admitted to the hospital with acute worsening of shortness of breath and concern for volume overload. Nephrology consult requested for management of volume overload. EMR records are reviewed in detail during patient's visit. Martha was recently admitted to the hospital from 07/25/22 to 08/06/22 with AFib with RVR and had TUCKER at that time with creatinine around 8. she was treated with diltiazem with rate controlled, has been already on warfarin. creatinine was back to baseline on discharge. She presented over the weekend again with progressive shortness of breath since her discharge. She was also noted to have more fullness in her face but otherwise no worsening swelling in legs or abdomen, weight the same as discharge weight on 08/07. On presentation HR was 114 and afib RVR, O2 sat 92% on room air. Labs notable for Hgb 9.3, INR 1.9, cr 3.8, BUN 47, BNP 1077, troponin 14. Lipase 86, ALT 57. COVID/flu/RSV negative. CXR shows small bilateral pleural effusions. She was given albuterol, 125 mg IV steroids, 20 mg Lasix and 10 mg IV diltiazem in ED. Repeat EKG shows sinus rhythm with PACs, rate 81 BPM. Has stage 5 CKD, b/l cr 3.5 to 3.8, eGFR around 10-12. Urinalysis with no proteinuria, hematuria pyuria. Workup including serological workup and paraproteinemia workup was unremarkable, no hypercalcemia or hypoalbuminemia. Renal ultrasound showed bilateral cortical thinning and atrophic kidneys, no hydronephrosis. No h/o NSAIDs use or autoimmune disease. Never smoker. Retired, lives at home alone, No known f/h of CKD, ESRD. Has mature AVF, placed by Dr. Hernandez on Mar 2020. Renal biopsy was initially planned but cancelled as urinalysis was unremarkable and serological workup was negative and high risk for thromboembolism and or bleeding as anticoagulation would need to be on hold for biopsy. Past medical history also significant for bilateral PE since 2018, thrombophilia workup was unremarkable. 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 H/O colonic polyp last colonoscopy was 2017, varicose vein s/p stripping, recurrent urinary tract infection, anxiety, depression. No HTN, DM, CAD. h/o chronic anemia, hemoglobin 9.0 to 9. Allergies Allergy/AdvReac Type Severity Reaction Status Date / Time Sulfa (Sulfonamide Allergy Intermediate HEADACHE, Verified 07/25/22 16:55 Antibiotics) VERTIGO Home Medications Medication Instructions Recorded Confirmed Type lorazepam 0.5 mg tablet 0.5 mg PO TID PRN Anxiety 06/12/19 07/25/22 History aspirin 81 mg tablet,delayed 81 mg PO HS 07/02/19 07/25/22 History release (Adult Low Dose Aspirin) epoetin kole 40,000 unit/mL 40,000 unit subcut .q2w 60 days 07/15/21 07/25/22 Rx injection solution albuterol sulfate 90 mcg/actuation 2 puff inhalation Q6H PRN 11/30/21 07/25/22 Rx aerosol inhaler Shortness Of Breath Or Wheezing #18 grams budesonide-formoterol HFA 160 2 puff inhalation BID #10.2 grams 11/30/21 07/25/22 Rx mcg-4.5 mcg/actuation aerosol inhaler (Symbicort) fluticasone propionate 50 1 spray intranasal DAILY #9.9 grams 11/30/21 07/25/22 Rx mcg/actuation nasal spray,suspension (Allergy Relief (fluticasone)) amlodipine 5 mg tablet 5 mg PO DAILY #90 tabs 02/26/22 07/25/22 Rx calcitriol 0.5 mcg capsule 0.5 mcg PO 3XWK 03/24/22 07/25/22 History diphenhydramine 25 2 tab PO HS 04/26/22 07/25/22 History mg-acetaminophen 500 mg tablet (Tylenol PM Extra Strength) meclizine 12.5 mg tablet 12.5 mg PO TID PRN dizziness #30 06/10/22 07/25/22 Rx tabs warfarin 3 mg tablet See Rx Instructions .Route .COMPLEX 06/16/22 07/25/22 History atorvastatin 20 mg tablet 20 mg PO HS 07/25/22 07/25/22 History paroxetine HCl 40 mg tablet 40 mg PO HS 07/25/22 07/25/22 History diltiazem HCl 180 mg 360 mg PO QAM 30 days #60 caps 08/06/22 Rx capsule,extended release 24 hr Patient History Medical History (Updated 08/16/22 @ 14:10 by Ksenia Rivas MD) Anxiety Bilateral pulmonary embolism Central retinal artery occlusion, left eye Chronic anticoagulation Hypercholesteremia Mixed conductive and sensorineural hearing loss of left ear with restricted hearing of right ear Pleural effusion Recurrent UTI 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 Severe mitral regurgitation Stage 5 chronic kidney disease not on chronic dialysis Vitamin D deficiency Surgical History Hx of hysterectomy Family History Mother Blood clot in vein Father Myocardial infarction Sister Blood clot in vein Aunt Blood clot in vein Social History Smoking Status: Never smoker Second Hand Exposure: No; Hx Alcohol Use: No Hx Substance Use: No Preferred Language: Guyanese Communication Ability: Effective Visual Impairment: Limited Hearing Ability: Use of Hearing Aid Supervisor Scrap Preparation Required: No Beliefs That Will Affect Care: None marital status: / Current Living Situation: Alone current occupational status: retired How many Children do You have: 3 Feels Safe at Home: Yes Childhood Exposure to Second-Hand Smoke: Yes caffeine: No Dental Care, Regularly: Yes Physical Activity Frequency: Does not Exercise Seatbelt Use: always Sunscreen Use: Yes Assistive Devices: Walker Review of Systems Review of Systems: Detail ROS was otherwise unremarkable. Physical Exam Constitutional: WD/WN, vitals as above no acute distress Eyes: + anicteric sclerae ENMT: Ears: no hearing impairment and no external ear abnormality Nose: nasal mucous membranes not dry Neck: normal visual inspection Thyroid: no thyromegaly Respiratory: normal respiratory effort; no respiratory distress and no cough Auscultation: + diminished lung sounds; no crackles and no wheezes Cardiovascular: Rate/Rhythm: regular rate and regular rhythm Heart Sounds: normal S1 and normal S2 Extremities: no edema Gastrointestinal (Abdomen): Inspection/Auscultation: abdomen normal to inspection and normal bowel sounds Percussion/Palpation: abdomen soft; abdomen nontender Musculoskeletal: Extremities: extremities normal to inspection Skin: normal turgor; no rashes Neurologic: no focal motor deficits and not confused Psychiatric: Orientation: alert and oriented x 3 Affect: euthymic affect Results & Data ([facility]) Vital Signs (Past 12 Hours) Vital Signs Temp Pulse Resp BP Pulse Ox O2 Del Method 08/16/22 11:36 36.7 C 98 H 18 154/76 H 97 Room Air 08/16/22 08:00 Room Air 08/16/22 06:33 36.9 C 97 H 18 129/75 92 Room Air 08/16/22 03:57 36.6 C 94 H 18 117/63 93 Room Air PG Care Time/CCT Total # of Minutes Spent Total Time Spent with Patient: Total time spent is greater than 50% in coordination of care (as documented) at patient's floor/unit and/or counseling patient: Coding Level of Care Code OFFICE CONSULT LVL 5, 55 MIN Diagnoses Chronic kidney disease, stage V N18.5 Anemia in CKD (chronic kidney disease) N18.9; D63.1 Atrial fibrillation with rapid ventricular response I48.91 Pleural effusion J90 Pulmonary hypertension I27.20 Severe mitral regurgitation I34.0 Hypertension I10 Secondary hyperparathyroidism of renal origin N25.81
--- NOTE | 2022-08-16 13:40 | XRay Report ---
XR chest 1V portable CLINICAL HISTORY: CHF TECHNIQUE: Single frontal radiograph of the chest was obtained. Comparison: Comparison is made to chest radiograph 08/14/2022 FINDINGS: No lines and tubes are seen. Cardiomegaly is noted. Bilateral lower lung predominant airspace opaciti es are seen. There is a small left and moderate right pleural effusion. IMPRESSION: 1. Cardiomegaly is noted. 2. Small left and moderate right pleural effusion, increased from prior exam. 3. Bilateral lower lung airspace opacities likely represent atelectasis with or without superimposed aspiration/pneumonia. ACT 112: Negative or not required by law. Electronically signed by: Real Powell M.D. 08/16/2022 1:38 PM
[2022-08-16] MEDS ORDERED: EPOETIN ALFA 40,000 UNITS/ML VIAL SQ STA (14:21)
--- NOTE | 2022-08-16 15:06 | Hospitalist Progress Note ---
Date of Service August 16, 2022 Assessment & Plan (1) Acute on chronic diastolic CHF (congestive heart failure): Plan: Presented with acute on chronic HFpEF likely 2/2 rapid afib, HTN ECHO on 07/26/22 with preserved EF, severe MR Improving with Lasix diuresis, peripheral edema improved, weight down CXR with pleural effusion persisting, but not hypoxic-consider thoracentesis if becomes more symptomatic, hypoxic -Hydralazine added for afterload reduction to ease the strain on the severe mitral regurgitation -continue IV lasix and consider increasing to bid as per Nephro recommendation -low sodium diet, strict I/Os, daily weights -adding on metoprolol for rate control (2) Severe mitral regurgitation: Plan: Low-dose hydralazine added. Afterload reduction may help follows with Cardiology (3) Atrial fibrillation with rapid ventricular response: Plan: New diagnosis, rates remain 90-100s at rest likely cause of volume overload/decompensation -continue home dilt po and add metoprolol 25mg po bid -follow on tele -continue coumadin for AC -keep lytes replete (4) Hypertension: Plan: Currently on diltiazem. Hydralazine has also been added. 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 Daily INR (6) Stage 5 chronic kidney disease not on chronic dialysis: Plan: Monitor intake and output. Serial lab studies Nephrology consulted today per family request and for assistance with diuretic management has [place]F functioning [place] [facility] [place] (7) History of pulmonary embolism: Plan: Continue Coumadin therapy Plan Dispo-continued stay on tele, PT/OT recommend rehab when medically stable Admission and Anticipated Discharge Date Admission Date: August 14, 2022 Subjective Feeling better, legs less swollen. Denies CP, SOB. Tele with afib, rates 90-100s Review of Systems Review of Systems: All systems reviewed & are unremarkable except as noted in HPI & below Physical Exam Constitutional: WD/WN, vitals as above Eyes: + anicteric sclerae Neck: trachea midline, no thyromegaly Respiratory: normal respiratory effort; no cough Auscultation: + diminished lung sounds (bibasilar) and + crackles (bibasilar); no rhonchi and no wheezes Cardiovascular: Rate/Rhythm: regular rate and + irregularly irregular Heart Sounds: + murmur (2/6 holosystolic murmur apex) Extremities: + edema (2+ pitting edema feet and legs bilat) Chest (Breasts): Chest: normal inspection of chest Gastrointestinal (Abdomen): normal bowel sounds, soft, nontender, no hepatosplenomegaly Musculoskeletal: Extremities: extremities normal to inspection; no cyanosis and no clubbing Skin: no rashes, warm and dry Neurologic: moves all extremities and awake; no focal motor deficits Psychiatric: A+Ox3, euthymic affect Results & Data Results & Data ([facility]) Vital Signs (Past 12 Hours) Vital Signs Temp Pulse Resp BP Pulse Ox O2 Del Method 08/16/22 11:36 36.7 C 98 H 18 154/76 H 97 Room Air 08/16/22 08:00 Room Air 08/16/22 06:33 36.9 C 97 H 18 129/75 92 Room Air 08/16/22 03:57 36.6 C 94 H 18 117/63 93 Room Air Laboratory Results 08/16/22 05:42 08/16/22 05:42 PG Care Time/CCT Total # of Minutes Spent Total Time Spent with Patient: Total time spent is greater than 50% in coordination of care (as documented) at patient's floor/unit and/or counseling patient: Coding Level of Care Code 52603 SUB INP/OBS CARE 3/50MIN Diagnoses Acute on chronic diastolic CHF (congestive heart failure) I50.33 Severe mitral regurgitation I34.0 Atrial fibrillation with rapid ventricular response I48.91 Hypertension I10 manager intermediate (current) use of anticoagulants Z79.01 Stage 5 chronic kidney disease not on chronic dialysis N18.5 History of pulmonary embolism Z86.711
[2022-08-16] MEDS: METOPROLOL TARTRATE 25 MG TAB PO SCH ×2 (15:57→20:24)
[2022-08-16] MEDS: FLUTICASONE/VILANTEROL 200/25MCG 14 PUFFS/INHALER INH SCH (20:21)
[2022-08-16] MEDS: ASPIRIN 81 MG ECTAB PO SCH (20:22)
[2022-08-16] MEDS: ATORVASTATIN 20 MG TAB PO SCH (20:22)
[2022-08-16] MEDS: PARoxetine HCL 20 MG TAB PO SCH (20:22)
[2022-08-16] MEDS: CALCITRIOL 0.25 MCG CAPSULE PO SCH (20:23)
[2022-08-17 06:10] LABS: Basophils # (auto) 0.04 K/uL (0-0.2); Basophils % (auto) 0.9 %; Eosinophils % (auto) 4.5 %; Hematocrit (blood only) 26.9 % (34.1-44.9); Hemoglobin 8.4 g/dl (12.0-16.0); Immature Granulocytes # (auto) 0.01 K/uL (0.00-0.02); Immature Granulocytes % (auto) 0.2 %; Lymphocytes % (auto) 17.8 %; Mean Corpuscular Hemoglobin 26.1 pg (25.0-34.0); Mean Corpuscular Hgb Conc 31.2 g/dL (32.0-36.0); Mean Corpuscular Volume 83.5 fL (80.0-100.0); Mean Platelet Volume 9.4 fL (9.4-12.3); Monocytes # (auto) 0.43 K/uL (0.24-0.82); Monocytes % (auto) 9.6 %; Neutrophils # (auto) 3.01 K/uL (1.4-6.5); Platelet Count 246 K/uL (130-400); RDW Coefficient of Variation 18.7 % (11.5-14.5); RDW Standard Deviation 57.1 fL (36.4-46.3); Red Blood Count 3.22 M/uL (3.93-5.22); White Blood Count 4.49 K/ul (4.8-10.8)
[2022-08-17 06:24] LABS: INR 2.1 (0.9-1.1); Prothrombin Time 21.9 Seconds (9.0-12.0)
[2022-08-17 06:30] LABS: Albumin Level 3.2 gm/dl (3.4-5.0); Calcium 8.4 mg/dl (8.5-10.1); Magnesium 1.8 mg/dl (1.7-2.4); Potassium 3.8 mmol/L (3.5-5.1)
[2022-08-17 06:35] LABS: BUN Creatinine Ratio 12.4 (10-20); Creatinine Clr Calc Pharmacy 11.8 ml/min; Est GFR (African American) 11.7 ml/min; Est GFR (Non-African American) 10.1 ml/min; Phosphorus 3.9 mg/dl (2.5-4.9)
[2022-08-17] MEDS: amLODIPine BESYLATE 5 MG TAB PO SCH (08:19)
[2022-08-17] MEDS: hydrALAZINE 10 MG TAB PO SCH ×4 (08:19→20:06)
[2022-08-17] MEDS: dilTIAZem HCL 180 MG CAPCR PO SCH (08:20)
[2022-08-17] MEDS: FLUTICASONE PROPIONATE NA SPR 16 GM BTL SCH (08:20)
[2022-08-17] MEDS: METOPROLOL TARTRATE 25 MG TAB PO SCH ×2 (08:20→20:06)
[2022-08-17] MEDS: FUROSEMIDE INJ 20 MG/2 ML VIAL IV SCH ×2 (09:38→17:35)
--- NOTE | 2022-08-17 11:29 | Nephrology Progress Note ---
Date of Service August 17, 2022 Assessment & Plan (1) Chronic kidney disease, stage V: (2) Anemia in CKD (chronic kidney disease): (3) Atrial fibrillation with rapid ventricular response: (4) Pleural effusion: (5) Pulmonary hypertension: (6) Severe mitral regurgitation: (7) Hypertension: (8) Secondary hyperparathyroidism of renal origin: Plan 82 y o f with Stage 5 CKD, b/l cr 3.6-3.8, eGFR 10-12, unclear etiology for CKD ( presented late and never had biopsy with h/o thromboembolic disease and high risk to stop anticoagulant), admitted with SOB, A fib with RVR, volume overload. Renal function has been stable at baseline. b/l Pl effusion with worsening of rt pl effusion on CXR this am. Electrolyte acceptable. Has mature left BC AV fistula. Renal function staying relatively stable, electrolyte acceptable. Stable lower extremity edema, shortness of breath improved, >600 ml negative. Hemoglobin low. Epogen 79572 units x 1 dose given on 08/16/22 --continue IV lasix, accurate intake and output, aim for net negative, if remained negative, can be switched to lasix 20 mg po bid starting tomorrow --continue calcitriol 0.5 mcg 3 times a week, avoid all NSAIDs,left arm nephrology precaution. Will follow. Admission and Anticipated Discharge Date Admission Date: August 14, 2022 Desiree Thomas was seen and evaluated this morning. Feeling better, less SOB, appetite fair. Net negative >600 ml, renal function electrolyte acceptable. BP fair. Review of Systems Review of Systems: Detail ROS was otherwise unremarkable. Physical Exam Constitutional: WD/WN, vitals as above no acute distress Eyes: + anicteric sclerae Neck: normal visual inspection Respiratory: normal respiratory effort Auscultation: + diminished lung sounds and + crackles Cardiovascular: Rate/Rhythm: + irregularly irregular Extremities: + edema Skin: no rashes Neurologic: no focal motor deficits Psychiatric: Orientation: alert and oriented x 3 Affect: euthymic affect Results & Data ([facility]) Vital Signs (Past 12 Hours) Vital Signs Temp Pulse Pulse Resp BP Pulse Ox O2 Del Method 08/17/22 07:00 64 08/17/22 07:33 36.6 C 68 18 144/76 H 91 Room Air 08/17/22 04:05 36.6 C 66 134/91 92 Room Air 08/17/22 00:01 36.5 C 66 127/66 95 Nasal Cannula O2 Flow Rate 08/17/22 07:00 08/17/22 07:33 08/17/22 04:05 08/17/22 00:01 2 PG Care Time/CCT Total # of Minutes Spent Total Time Spent with Patient: Total time spent is greater than 50% in coordination of care (as documented) at patient's floor/unit and/or counseling patient: Coding Level of Care Code 54728 SUB INP/OBS CARE 3/50MIN Diagnoses Chronic kidney disease, stage V N18.5 Anemia in CKD (chronic kidney disease) N18.9; D63.1 Atrial fibrillation with rapid ventricular response I48.91 Pleural effusion J90 Pulmonary hypertension I27.20 Severe mitral regurgitation I34.0 Hypertension I10 Secondary hyperparathyroidism of renal origin N25.81
--- NOTE | 2022-08-17 14:59 | Hospitalist Progress Note ---
Date of Service August 17, 2022 Assessment & Plan (1) Acute on chronic diastolic CHF (congestive heart failure): Plan: Presented with acute on chronic HFpEF likely 2/2 rapid afib, HTN ECHO on 07/26/22 with preserved EF, severe MR Continues to improve with Lasix diuresis, peripheral edema improved, weight down, orthopnea improving CXR with pleural effusion persisting, but not hypoxic-consider thoracentesis if becomes more symptomatic, hypoxic -Hydralazine added for afterload reduction to ease the strain on the severe mitral regurgitation -continue IV lasix bid as per Nephro recommendation and convert to lasix 20mg po bid tomorrow -low sodium diet, strict I/Os, daily weights -added on metoprolol for rate control (2) Severe mitral regurgitation: Plan: Low-dose hydralazine added. Afterload reduction may help follows with Cardiology (3) Atrial fibrillation with rapid ventricular response: Plan: New diagnosis, rates were 90-100s at rest when in Afib likely cause of volume overload/decompensation -continue home dilt po and added metoprolol 25mg po bid COnverted to NSR on 08/16 and rates in 60s in NSR -follow on tele -continue coumadin for AC -keep lytes replete -check TSH in AM (4) Hypertension: Plan: Currently on diltiazem. Hydralazine has also been added. 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 Daily INR remains therapeutic (6) Stage 5 chronic kidney disease not on chronic dialysis: Plan: Monitor intake and output. Serial lab studies Nephrology consulted for assistance with diuretic management has AVF functioning in [facility] renal function fairly stable follow BMP -Avoid nephrotoxins -renally dose meds when appropriate (7) History of pulmonary embolism: Plan: Continue Coumadin therapy (8) Anemia: Plan: likely anemia of CKD but borderline microcytic check Fe studies, B12, folate, TSH in AM Epogen given here by Shirley Plan Dispo-continued stay on tele, PT/OT recommend rehab when medically stable- possibly tomorrow Admission and Anticipated Discharge Date Admission Date: August 14, 2022 Subjective Pt feeling better. Had some SOB with lying flat earlier that is now resolved. Making plenty of urine today. No other concerns. Tele with NSR, rates 60s since converting out of afib yesterday Review of Systems Review of Systems: All systems reviewed & are unremarkable except as noted in HPI & below Physical Exam Constitutional: WD/WN, vitals as above Eyes: + anicteric sclerae Neck: trachea midline, no thyromegaly Respiratory: normal respiratory effort; no cough Auscultation: + diminished lung sounds (bibasilar); no crackles, no rhonchi and no wheezes Cardiovascular: Rate/Rhythm: regular rate and regular rhythm Heart Sounds: + murmur (2/6 holosystolic murmur apex) Extremities: + edema (1+ pitting edema legs bilat, improved) Chest (Breasts): Chest: normal inspection of chest Gastrointestinal (Abdomen): normal bowel sounds, soft, nontender, no hepatosplenomegaly Musculoskeletal: Extremities: extremities normal to inspection; no cyanosis and no clubbing Skin: no rashes, warm and dry Neurologic: moves all extremities and awake; no focal motor deficits Psychiatric: A+Ox3, euthymic affect Results & Data Results & Data ([facility]) Vital Signs (Past 12 Hours) Vital Signs Temp Pulse Pulse Resp BP Pulse Ox O2 Del Method 08/17/22 11:26 36.5 C 62 18 130/73 93 Room Air 08/17/22 07:00 64 08/17/22 07:33 36.6 C 68 18 144/76 H 91 Room Air 08/17/22 04:05 36.6 C 66 134/91 92 Room Air Laboratory Results 08/17/22 08/17/22 08/17/22 Range/Units 05:33 05:33 05:33 WBC 4.49 L (4.8-10.8) K/ul RBC 3.22 L (3.93-5.22) M/uL Hgb 8.4 L (12.0-16.0) g/dl Hct 26.9 L (34.1-44.9) % MCV 83.5 (80.0-100.0) fL MCH 26.1 (25.0-34.0) pg MCHC 31.2 L (32.0-36.0) g/dL RDW Std Deviation 57.1 H (36.4-46.3) fL RDW Coeff of [place] 18.7 H (11.5-14.5) % Plt Count 246 (130-400) K/uL MPV 9.4 (9.4-12.3) fL Immature Gran % (Auto) 0.2 % Neut % (Auto) 67.0 % Lymph % (Auto) 17.8 % [place] % (Auto) 9.6 % Eos % (Auto) 4.5 % Baso % (Auto) 0.9 % Neut # (Auto) 3.01 (1.4-6.5) K/uL Lymph # (Auto) 0.80 L (1.2-3.4) K/uL [place] # (Auto) 0.43 (0.24-0.82) K/uL Eos # (Auto) 0.20 (0-0.50) K/uL Baso # (Auto) 0.04 (0-0.2) K/uL Immature Gran # (Auto) 0.01 (0.00-0.02) K/uL PT 21.9 H (9.0-12.0) Seconds INR 2.1 H (0.9-1.1) Sodium 138 (136-145) mmol/L Potassium 3.8 (3.5-5.1) mmol/L Chloride 103 (98-107) mmol/L Carbon Dioxide 29 (21-32) mmol/L Anion Gap 6 (3-11) BUN 49 H (6-23) mg/dl Creatinine 3.94 H (0.6-1.2) mg/dl Est Cr Clr Drug Dosing 11.8 ml/min Est GFR ( Amer) 11.7 ml/min Est GFR (Non-Af Amer) 10.1 ml/min BUN/Creatinine Ratio 12.4 (10-20) Glucose 112 H (70-99(Fasting)) mg/dl Calcium 8.4 L (8.5-10.1) mg/dl Phosphorus 3.9 (2.5-4.9) mg/dl Magnesium 1.8 (1.7-2.4) mg/dl Albumin 3.2 L (3.4-5.0) gm/dl PG Care Time/CCT Total # of Minutes Spent Total Time Spent with Patient: Total time spent is greater than 50% in coordination of care (as documented) at patient's floor/unit and/or counseling patient: Coding Level of Care Code 27656 SUB INP/OBS CARE 50MIN Diagnoses Acute on chronic diastolic CHF (congestive heart failure) I50.33 Severe mitral regurgitation I34.0 Atrial fibrillation with rapid ventricular response I48.91 Hypertension I10 technical administrator (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
[2022-08-17] MEDS: WARFARIN SOD 3 MG TAB PO SCH (17:35)
[2022-08-17] MEDS: ATORVASTATIN 20 MG TAB PO SCH (20:06)
[2022-08-17] MEDS: ASPIRIN 81 MG ECTAB PO SCH (20:07)
[2022-08-17] MEDS: PARoxetine HCL 20 MG TAB PO SCH (20:08)
[2022-08-17] MEDS: FLUTICASONE/VILANTEROL 200/25MCG 14 PUFFS/INHALER INH SCH (20:10)
[2022-08-17] MEDS: LORazepam 0.5 MG TAB PO PRN (22:10)
[2022-08-18 06:51] LABS: Basophils # (auto) 0.06 K/uL (0-0.2); Basophils % (auto) 1.3 %; Eosinophils # (auto) 0.14 K/uL (0-0.50); Eosinophils % (auto) 3.1 %; Hematocrit (blood only) 28.3 % (34.1-44.9); Immature Granulocytes # (auto) 0.02 K/uL (0.00-0.02); Immature Granulocytes % (auto) 0.4 %; Lymphocytes # (auto) 0.75 K/uL (1.2-3.4); Lymphocytes % (auto) 16.5 %; Mean Corpuscular Hemoglobin 26.1 pg (25.0-34.0); Mean Corpuscular Hgb Conc 31.8 g/dL (32.0-36.0); Mean Platelet Volume 9.6 fL (9.4-12.3); Monocytes # (auto) 0.45 K/uL (0.24-0.82); Monocytes % (auto) 9.9 %; Neutrophils # (auto) 3.12 K/uL (1.4-6.5); Neutrophils % (auto) 68.8 %; Platelet Count 287 K/uL (130-400); RDW Coefficient of Variation 18.9 % (11.5-14.5); RDW Standard Deviation 56.4 fL (36.4-46.3); Red Blood Count 3.45 M/uL (3.93-5.22); White Blood Count 4.54 K/ul (4.8-10.8)
[2022-08-18 06:56] LABS: Albumin Level 3.4 gm/dl (3.4-5.0); BUN Creatinine Ratio 12.6 (10-20); Calcium 8.9 mg/dl (8.5-10.1); Creatinine Clr Calc Pharmacy 11.4 ml/min; Est GFR (African American) 11.9 ml/min; Est GFR (Non-African American) 10.3 ml/min; Phosphorus 3.9 mg/dl (2.5-4.9); Potassium 3.8 mmol/L (3.5-5.1)
[2022-08-18 07:13] LABS: Ferritin 135.9 ng/ml (8-388)
[2022-08-18 07:37] LABS: INR 2.2 (0.9-1.1); Prothrombin Time 22.8 Seconds (9.0-12.0)
[2022-08-18] MEDS ORDERED: CYANOCOBALAMIN 1000 MCG/ML VIAL IM ONE (09:00)
[2022-08-18] MEDS: FLUTICASONE PROPIONATE NA SPR 16 GM BTL SCH (09:30)
[2022-08-18] MEDS: dilTIAZem HCL 180 MG CAPCR PO SCH (09:30)
[2022-08-18] MEDS: FUROSEMIDE 20 MG TAB PO SCH ×2 (09:30→17:13)
[2022-08-18] MEDS: METOPROLOL TARTRATE 25 MG TAB PO SCH (09:30)
[2022-08-18] MEDS: amLODIPine BESYLATE 5 MG TAB PO SCH (09:30)
[2022-08-18] MEDS: hydrALAZINE 10 MG TAB PO SCH (09:30)
--- NOTE | 2022-08-18 12:38 | Nephrology Progress Note ---
Date of Service August 18, 2022 Assessment & Plan (1) Chronic kidney disease, stage V: (2) Anemia in CKD (chronic kidney disease): (3) Atrial fibrillation with rapid ventricular response: (4) Pleural effusion: (5) Pulmonary hypertension: (6) Severe mitral regurgitation: (7) Hypertension: (8) Secondary hyperparathyroidism of renal origin: Plan 82 y o f with Stage 5 CKD, b/l cr 3.6-3.8, eGFR 10-12, unclear etiology for CKD ( presented late and never had biopsy with h/o thromboembolic disease and high risk to stop anticoagulant), admitted with SOB, A fib with RVR, volume overload. Renal function has been stable at baseline. b/l Pl effusion with worsening of rt pl effusion on CXR this am. Electrolyte acceptable. Has mature left BC AV fistula. Renal function staying relatively stable, electrolyte acceptable. Stable lower extremity edema, shortness of breath improved, >800 ml negative. Hemoglobin low. Epogen 95563 units x 1 dose given on 08/16/22 --continue lasix 20 mg po bid --Venofer 200 mg iv daily for total 5 doses , OK to switch to po on DC --continue calcitriol 0.5 mcg 3 times a week, avoid all NSAIDs,left arm nephrology precaution. Will follow. Admission and Anticipated Discharge Date Admission Date: August 14, 2022 Desiree Thomas was seen and evaluated this morning. Feeling better, SOB much improved, appetite fair. Net negative >800 ml, renal function electrolyte acceptable. BP fair. Review of Systems Review of Systems: Detail ROS was otherwise unremarkable. Physical Exam Constitutional: WD/WN, vitals as above no acute distress Eyes: + anicteric sclerae Neck: normal visual inspection Respiratory: normal respiratory effort Auscultation: + diminished lung sounds and + crackles Cardiovascular: Rate/Rhythm: regular rate and regular rhythm Extremities: + edema Skin: no rashes Neurologic: no focal motor deficits Psychiatric: Orientation: alert and oriented x 3 Affect: euthymic affect Results & Data ([facility]) Vital Signs (Past 12 Hours) Vital Signs Temp Pulse Pulse Resp BP Pulse Ox O2 Del Method 08/18/22 11:24 36.4 C L 60 16 135/74 93 Room Air 08/18/22 07:00 66 08/18/22 07:06 36.4 C L 66 16 143/68 H 94 Room Air 08/18/22 03:28 36.6 C 61 14 145/80 H 92 Room Air 08/18/22 01:56 69 PG Care Time/CCT Total # of Minutes Spent Total Time Spent with Patient: Total time spent is greater than 50% in coordination of care (as documented) at patient's floor/unit and/or counseling patient: Coding Level of Care Code 27342 SUB INP/OBS CARE 3/50MIN Diagnoses Chronic kidney disease, stage V N18.5 Anemia in CKD (chronic kidney disease) N18.9; D63.1 Atrial fibrillation with rapid ventricular response I48.91 Pleural effusion J90 Pulmonary hypertension I27.20 Severe mitral regurgitation I34.0 Hypertension I10 Secondary hyperparathyroidism of renal origin N25.81
[2022-08-18] MEDS ORDERED: IRON SUCROSE 200 MG in 0.9 % SODIUM CHLORIDE 100 ML IV SCH (13:00)
[2022-08-18] MEDS: DOCUSATE SODIUM/SENNA 50/8.6MG TAB PO SCH (13:53)
[2022-08-18] MEDS: WARFARIN SOD 3 MG TAB PO SCH (17:11)
--- NOTE | 2022-08-18 20:14 | Hospitalist Progress Note ---
Date of Service August 18, 2022 Assessment & Plan (1) Acute on chronic diastolic CHF (congestive heart failure): Plan: Presented with acute on chronic HFpEF likely 2/2 rapid afib, HTN ECHO on 07/26/22 with preserved EF, severe MR With pleural effusions, pulm edema, and peripheral edema, dyspnea on presentation Much improved with Lasix diuresis, peripheral edema improved, weight down, orthopnea improving. CXR with pleural effusion persisting, but not hypoxic-consider thoracentesis if becomes more symptomatic, hypoxic hydralazine and amlodipine may be exacerbating lower extremity edema, but rapid afib may have also contributed. -Hydralazine added for afterload reduction to ease the strain on the severe mitral regurgitation but after discussion with Nephrology--> will now discontinue and favor increasing dose of metoprolol -received IV lasix bid and converted to lasix 20mg po bid now after having excellent diuresis -low sodium diet, strict I/Os, daily weights -added on metoprolol for rate control of Afib (2) Severe mitral regurgitation: Plan: Low-dose hydralazine added initially but Nephrology recommending discontinuing this in favor of increasing metoprolol follows with Cardiology (3) Atrial fibrillation with rapid ventricular response: Plan: New diagnosis, rates were 90-100s at rest when in Afib likely cause of volume overload/decompensation -continue home dilt po and added metoprolol 25mg po bid COnverted to NSR on 08/16 and rates in 60s in NSR TSH normal -follow on tele -continue coumadin for AC -keep lytes replete -increase metoprolol to 50mg bid (4) Hypertension: Plan: Currently on diltiazem. 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 Daily INR remains therapeutic (6) Stage 5 chronic kidney disease not on chronic dialysis: Plan: Monitor intake and output. Serial lab studies Nephrology consulted for assistance with diuretic management has AVF functioning in LUE renal function fairly stable follow BMP -Avoid nephrotoxins -renally dose meds when appropriate (7) History of pulmonary embolism: Plan: Continue Coumadin therapy (8) Anemia: Plan: anemia of CKD but borderline microcytic and found to be iron deficienct as well--> transferrin sat 16%, ferritin 135 -give IV Venofer 200mg daily x 5 doses or until leaves hospital, then convert to po FeSO4 B12 low at 265--> give IM B12 x 1 now and then start B12 1000 mcg po daily folate, TSH both normal Epogen given here by Nephro on 08/16 Plan Dispo-continued stay on tele while awaiting SNF placement insurance auth. Bed at [facility] is on hold for her, just awaiting auth hopeful for discharge tomorrow Admission and Anticipated Discharge Date Admission Date: August 14, 2022 Subjective Pt feeling well, no complaints. No SOB. Is OOB to chair Tele with NSR, rates 60-70s No BM and requesting laxative I discussed her care with Nephrology Review of Systems Review of Systems: All systems reviewed & are unremarkable except as noted in HPI & below Physical Exam Constitutional: WD/WN, vitals as above Eyes: + anicteric sclerae Neck: trachea midline, no thyromegaly Respiratory: normal respiratory effort; no cough Auscultation: + diminished lung sounds (bibasilar); no crackles, no rhonchi and no wheezes Cardiovascular: Rate/Rhythm: regular rate and regular rhythm Heart Sounds: + murmur (2/6 holosystolic murmur apex) Extremities: + edema (1+ pitting edema legs bilat, improved) Chest (Breasts): Chest: normal inspection of chest Gastrointestinal (Abdomen): normal bowel sounds, soft, nontender, no hepatosplenomegaly Musculoskeletal: Extremities: extremities normal to inspection; no cyanosis and no clubbing Skin: no rashes, warm and dry Neurologic: moves all extremities and awake; no focal motor deficits Psychiatric: A+Ox3, euthymic affect Results & Data Results & Data ([facility]) Vital Signs (Past 12 Hours) Vital Signs Temp Pulse Resp BP Pulse Ox O2 Del Method 08/18/22 19:13 36.6 C 65 16 126/72 93 Room Air 08/18/22 15:08 36.2 C L 61 16 125/63 94 Room Air 08/18/22 11:24 36.4 C L 60 16 135/74 93 Room Air Laboratory Results 01/25/23 01/25/23 01/25/23 Range/Units 06:12 06:12 06:12 WBC 4.54 L (4.8-10.8) K/ul RBC 3.45 L (3.93-5.22) M/uL Hgb 9.0 L (12.0-16.0) g/dl Hct 28.3 L (34.1-44.9) % MCV 82.0 (80.0-100.0) fL MCH 26.1 (25.0-34.0) pg MCHC 31.8 L (32.0-36.0) g/dL RDW Std Deviation 56.4 H (36.4-46.3) fL RDW Coeff of Alice 18.9 H (11.5-14.5) % Plt Count 287 (130-400) K/uL MPV 9.6 (9.4-12.3) fL Immature Gran % (Auto) 0.4 % Neut % (Auto) 68.8 % Lymph % (Auto) 16.5 % [place] % (Auto) 9.9 % Eos % (Auto) 3.1 % Baso % (Auto) 1.3 % Neut # (Auto) 3.12 (1.4-6.5) K/uL Lymph # (Auto) 0.75 L (1.2-3.4) K/uL [place] # (Auto) 0.45 (0.24-0.82) K/uL Eos # (Auto) 0.14 (0-0.50) K/uL Baso # (Auto) 0.06 (0-0.2) K/uL Immature Gran # (Auto) 0.02 (0.00-0.02) K/uL PT (9.0-12.0) Seconds INR (0.9-1.1) Sodium (136-145) mmol/L Potassium (3.5-5.1) mmol/L Chloride (98-107) mmol/L Carbon Dioxide (21-32) mmol/L Anion Gap (3-11) BUN (6-23) mg/dl Creatinine (0.6-1.2) mg/dl Est Cr Clr Drug Dosing ml/min Est GFR ( Amer) ml/min Est GFR (Non-Af Amer) ml/min BUN/Creatinine Ratio (10-20) Glucose (70-99(Fasting)) mg/dl Calcium (8.5-10.1) mg/dl Phosphorus (2.5-4.9) mg/dl Iron 40 (35-150) mcg/dl TIBC 248 L (250-450) mcg/dl Unsaturated IBC 208 (155-355) mcg/dl Transferrin % Sat 16 (15-50) % Ferritin 135.9 (8-388) ng/ml Albumin (3.4-5.0) gm/dl Vitamin B12 265 (180-914) pg/ml Folate 9.58 (>5.38) ng/ml TSH (0.300-4.500) uIu/ml 08/18/22 08/18/22 08/18/22 Range/Units 06:12 06:12 06:12 WBC (4.8-10.8) K/ul RBC (3.93-5.22) M/uL Hgb (12.0-16.0) g/dl Hct (34.1-44.9) % MCV (80.0-100.0) fL MCH (25.0-34.0) pg MCHC (32.0-36.0) g/dL RDW Std Deviation (36.4-46.3) fL RDW Coeff of Alice (11.5-14.5) % Plt Count (130-400) K/uL MPV (9.4-12.3) fL Immature Gran % (Auto) % Neut % (Auto) % Lymph % (Auto) % [place] % (Auto) % Eos % (Auto) % Baso % (Auto) % Neut # (Auto) (1.4-6.5) K/uL Lymph # (Auto) (1.2-3.4) K/uL [place] # (Auto) (0.24-0.82) K/uL Eos # (Auto) (0-0.50) K/uL Baso # (Auto) (0-0.2) K/uL Immature Gran # (Auto) (0.00-0.02) K/uL PT 22.8 H (9.0-12.0) Seconds INR 2.2 H (0.9-1.1) Sodium 139 (136-145) mmol/L Potassium 3.8 (3.5-5.1) mmol/L Chloride 103 (98-107) mmol/L Carbon Dioxide 28 (21-32) mmol/L Anion Gap 8 (3-11) BUN 49 H (6-23) mg/dl Creatinine 3.89 H (0.6-1.2) mg/dl Est Cr Clr Drug Dosing 11.4 ml/min Est GFR ( Amer) 11.9 ml/min Est GFR (Non-Af Amer) 10.3 ml/min BUN/Creatinine Ratio 12.6 (10-20) Glucose 112 H (70-99(Fasting)) mg/dl Calcium 8.9 (8.5-10.1) mg/dl Phosphorus 3.9 (2.5-4.9) mg/dl Iron (35-150) mcg/dl TIBC (250-450) mcg/dl Unsaturated IBC (155-355) mcg/dl Transferrin % Sat (15-50) % Ferritin (8-388) ng/ml Albumin 3.4 (3.4-5.0) gm/dl Vitamin B12 (180-914) pg/ml Folate (>5.38) ng/ml TSH 2.074 (0.300-4.500) uIu/ml PG Care Time/CCT Total # of Minutes Spent Total Time Spent with Patient: Total time spent is greater than 50% in coordination of care (as documented) at patient's floor/unit and/or counseling patient: Coding Level of Care Code 05645 SUB INP/OBS CARE 2/35MIN Diagnoses Acute on chronic diastolic CHF (congestive heart failure) I50.33 Severe mitral regurgitation I34.0 Atrial fibrillation with rapid ventricular response I48.91 Hypertension I10 senior living (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
[2022-08-18] MEDS: CALCITRIOL 0.25 MCG CAPSULE PO SCH (20:37)
[2022-08-18] MEDS: METOPROLOL TARTRATE 50 MG TAB PO SCH (20:37)
[2022-08-18] MEDS: ATORVASTATIN 20 MG TAB PO SCH (20:37)
[2022-08-18] MEDS: FLUTICASONE/VILANTEROL 200/25MCG 14 PUFFS/INHALER INH SCH (20:38)
[2022-08-18] MEDS: ASPIRIN 81 MG ECTAB PO SCH (20:38)
[2022-08-18] MEDS: PARoxetine HCL 20 MG TAB PO SCH (20:38)
[2022-08-18] MEDS: LORazepam 0.5 MG TAB PO PRN (22:06)
[2022-08-19 08:13] LABS: Albumin Level 3.3 gm/dl (3.4-5.0); BUN Creatinine Ratio 12.6 (10-20); Calcium 8.8 mg/dl (8.5-10.1); Creatinine Clr Calc Pharmacy 11.5 ml/min; Est GFR (Non-African American) 10.3 ml/min; Phosphorus 3.9 mg/dl (2.5-4.9); Potassium 3.8 mmol/L (3.5-5.1)
[2022-08-19 08:22] LABS: INR 2.7 (0.9-1.1); Prothrombin Time 26.9 Seconds (9.0-12.0)
[2022-08-19] MEDS: FLUTICASONE PROPIONATE NA SPR 16 GM BTL SCH (08:48)
[2022-08-19] MEDS: METOPROLOL TARTRATE 50 MG TAB PO SCH (08:48)
[2022-08-19] MEDS: DOCUSATE SODIUM/SENNA 50/8.6MG TAB PO SCH (08:48)
[2022-08-19] MEDS: amLODIPine BESYLATE 5 MG TAB PO SCH (08:48)
[2022-08-19] MEDS: dilTIAZem HCL 180 MG CAPCR PO SCH (08:48)
[2022-08-19] MEDS: FUROSEMIDE 20 MG TAB PO SCH (08:48)
[2022-08-19] MEDS ORDERED: CYANOCOBALAMIN (B-12) 500 MCG TABLET PO SCH (09:00)
--- NOTE | 2022-08-19 11:27 | Discharge Summary ---
Date of Service August 19, 2022 Admission HPI Per Admitting Provider Martha Raygoza is an 82-year-old female with a past medical history significant for A. fib, COPD, HFpEF, CKD stage V not on dialysis, anemia, hyperlipidemia, and anxiety is presenting today with shortness of breath. For the past few days she has had a gradual development of worsening dyspnea on exertion, now feeling short of breath even at rest. She is noticing more fullness in her face but otherwise no worsening swelling in legs or abdomen, weight the same as discharge weight on 08/07.She has not had and chest pain or palpitations, fever/chills, myalgias, cough or sputum production. On presentation her heart rate was 114 found to be in afib RVR otherwise vital signs within normal notes, 92% on room air. Labs notable for Hgb 9.3, at her baseline. INR 1.9, subtherapeutic. BUN 47, creatinine 3.83, at baseline. BNP 1077, troponin 14. Lipase 86, ALT 57. COVID/flu/RSV negative. CXR shows small bilateral pleural effusions with bilateral lower lung space opacities possibly representing layer of lesion versus atelectasis versus pneumonia. Patient given albuterol treatment, 125 mg IV steroids, 20 mg Lasix and 10 mg IV diltiazem in ED. Repeat EKG shows sinus rhythm with PACs, rate 81 BPM. Principal Diagnosis Rapid atrial fibrillation, Acute on chronic HFpEF Hypoxic respiratory failure-resolved, Pleural effusions Discharge Exam Constitutional WD/WN, vitals as above Eyes + anicteric sclerae Neck trachea midline, no thyromegaly Respiratory normal respiratory effort; no cough Auscultation: + diminished lung sounds (bibasilar, but improved from previous); no crackles, no rhonchi and no wheezes Cardiovascular Rate/Rhythm: regular rate and regular rhythm Heart Sounds: + murmur (2/6 holosystolic murmur apex) Extremities: + edema (trace+ pitting edema legs bilat, improved) Chest (Breasts) Chest: normal inspection of chest Gastrointestinal (Abdomen) normal bowel sounds, soft, nontender, no hepatosplenomegaly Musculoskeletal Extremities: extremities normal to inspection; no cyanosis and no clubbing Skin no rashes, warm and dry Neurologic moves all extremities and awake; no focal motor deficits Psychiatric A+Ox3, euthymic affect Discharge Data Allergies Allergy/AdvReac Type Severity Reaction Status Date / Time Sulfa (Sulfonamide Allergy Intermediate HEADACHE, Verified 07/25/22 16:55 Antibiotics) VERTIGO Consultations 08/14/22 13:10 ED Decision to Admit Stat 08/16/22 09:43 Consult Nephrology Routine Hospital Course (1) Acute on chronic diastolic CHF (congestive heart failure): Presented with acute on chronic HFpEF likely 2/2 rapid afib, HTN ECHO on 07/26/22 with preserved EF, severe MR With pleural effusions, pulm edema, and peripheral edema, dyspnea on presentation Much improved with Lasix diuresis, peripheral edema improved, weight down, orthopnea resolved CXR with pleural effusion persisting, but not hypoxic-consider thoracentesis if becomes more symptomatic, hypoxic hydralazine and amlodipine may be exacerbating lower extremity edema, but rapid afib may have also contributed. 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 -low sodium diet, strict I/Os, daily weights -added on metoprolol for rate control of Afib (2) Severe mitral regurgitation: Low-dose hydralazine added initially but Nephrology recommending discontinuing this in favor of increasing metoprolol diuresed follow with Cardiology after discharge (3) Atrial fibrillation with rapid ventricular response: New diagnosis, rates were 90-100s at rest when in Afib likely contributed to volume overload/decompensation -continue home dilt po and added metoprolol 25mg po bid--> increased to 50mg bid but caused bradycardia to the 50s and fatigue--> change to 37.5mg bid on discharge Converted to NSR on 08/16 and rates in 60s in NSR TSH normal -continue coumadin for AC -keep lytes replete -started metoprolol 37.5mg bid (4) Hypertension: Currently on diltiazem. 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 Daily INR remains therapeutic Follow INR as outpt (6) Stage 5 chronic kidney disease not on chronic dialysis: Nephrology consulted for assistance with diuretic management has AVF functioning in LUE renal function fairly stable with cloud operations engineer 3.8 follow BMP and see Nephrology in 2 weeks after discharge -Avoid nephrotoxins -renally dose meds when appropriate -continue calcitriol 3x/week (7) History of pulmonary embolism: Continue Coumadin therapy (8) Anemia: anemia of CKD but borderline microcytic and found to be iron deficienct as well--> transferrin sat 16%, ferritin 135 -gave IV Venofer 200mg daily x 2 doses prior to discharge and then start po FeSO4 325mg daily on discharge along with senna/docusate for constipation B12 low at 265--> gave IM B12 x 1 and then started B12 1000 mcg po daily folate, TSH both normal Epogen given here by Nephro on 08/16 Plan Dispo-dc to SNF at [facility] today Total Time Total Time Spent Total Time Spent (In Minutes): 35 min Discharge Plan Discharge Items Patient Disposition: Transfer Care Home Fac Reason For Visit: SOB,AFIB,RVR Discharge Diagnosis: Rapid atrial fibrillation, Acute on chronic HFpEF Hypoxic respiratory failure, pleural effusions Condition on Discharge: Good Activity: As commented below Lifting: Gradually increase as tolerated Bathing: No limitations Exercise/Sports: Gradually increase as tolerated Weightbearing: Full weightbearing Non-emergency contact: Primary Care Provider and Etl Analyst Developer Call non-emergency contact if: you have any medication questions and your symptoms worsen Follow-up/Referrals: Ksenia Rivas MD [Physician] - (Follow up within 2 weeks.) Soledad Meier MD [Primary Care Provider] - (Follow up after discharge from rehab.) Diet: Dialysis Renal and Low Sodium (2gm) Fluids: 1800ml (7 cups) Addtl Attending Provider Instructions: Please continue on the lasix to keep fluid off. You should have a BMP drawn in 1 week with results to be sent to Dr. Rivas of Nephrology and follow up with her in 2 weeks. Continue your coumadin and have your INR checked in 1 week. You were started on metoprolol to improve your heart rate and keep it from going too fast when you're in atrial fibrillation. You were also started on iron tablets and B12 pills to help improve your anemia. Pending Studies at Discharge: No Stand-Alone Forms: My [facility] Skilled Items Patient informed of condition?: Yes DNR: No Discharge Level of Care: Skilled Communicable Disease: No Discharge Prognosis: Improving Lines: None Urinary Catheter: No Medications and DC Order Prescriptions: New ferrous sulfate 325 mg (65 mg iron) Tablet,Delayed Release (Dr/Ec) 325 mg PO QAM Qty: 30 0RF metoprolol tartrate 37.5 mg tablet 37.5 mg PO BID Qty: 60 0RF polyethylene glycol 3350 [Miralax] 17 gram Powder In Packet 17 g PO DAILY Qty: 30 0RF sennosides-docusate sodium [Senokot-S] 8.6-50 mg Tablet 1 tab PO BID Qty: 60 0RF furosemide 20 mg Tablet 20 mg PO BID17 Qty: 60 0RF cyanocobalamin (vitamin B-12) 1,000 mcg capsule 1,000 mcg PO DAILY Qty: 30 0RF Continued aspirin [Adult Low Dose Aspirin] 81 mg tablet,delayed release (DR/EC) 81 mg PO HS warfarin 3 mg tablet See Rx Instructions .ROUTE .COMPLEX Rx Instructions: TAKES QPM-- 0 MG ON MONDAYS, THEN 3 MG ALL OTHER DAYS. per [facility] orally use as directed; amlodipine 5 mg tablet 5 mg PO DAILY Qty: 90 3RF epoetin kole 40,000 unit/mL solution 40,000 unit subcut .q2w 60 Days 6RF Rx Instructions: Hold for Hgb >10.5 diphenhydramine-acetaminophen [Tylenol PM Extra Strength] 25-500 mg tablet 2 tab PO HS Symbicort 160-4.5 mcg/actuation HFA aerosol inhaler 2 puff INH BID Qty: 10.2 11RF albuterol sulfate 90 mcg/actuation HFA aerosol inhaler 2 puff INH Q6H PRN (Reason: Shortness Of Breath Or Wheezing) Qty: 18 4RF fluticasone propionate [Allergy Relief (fluticasone)] 50 mcg/actuation spray,suspension 1 spray INTNAS DAILY Qty: 9.9 3RF Rx Instructions: administer into each nostril once daily meclizine 12.5 mg tablet 12.5 mg PO TID PRN (Reason: dizziness) Qty: 30 0RF calcitriol 0.5 mcg capsule 0.5 mcg PO 3XWK Rx Instructions: TAKES MON, TUE, & FRI. IN THE HS. lorazepam 0.5 mg tablet 0.5 mg PO TID PRN (Reason: Anxiety) Qty: 5 0RF atorvastatin 20 mg tablet 20 mg PO HS paroxetine HCl 40 mg tablet 40 mg PO HS diltiazem HCl 180 mg Capsule,Extended Release 24hr 360 mg PO QAM 30 Days Qty: 60 0RF Discontinued Procrit 40,000 unit/mL solution 40,000 unit subcut ONCE Qty: 1 0RF Discharge Orders: Discharge Order (Routine); Ordered 08/19/22 Ordered By: Mercedes Martin Admission Data Admit Date/Time: 08/14/22 13:22 Attending Provider: Mercedes Martin Admit Provider: Julissa Ramires Primary Care Provider: Soledad Meier Other Providers: Blayne Singleton ; Ksenia Rivas ; [facility] Coding Level of Care Code HOSP INP/OBS DISCH >30 MIN Diagnoses Acute on chronic diastolic CHF (congestive heart failure) I50.33 Severe mitral regurgitation I34.0 Atrial fibrillation with rapid ventricular response I48.91 Hypertension I10 retirement (current) use of anticoagulants Z79.01 Stage 5 chronic kidney disease not on chronic dialysis N18.5 History of pulmonary embolism Z86.711 Anemia D64.89 Anemia type: other cause Other causes of anemia: other cause, not classified
[2022-08-19] MEDS ORDERED: POLYETHYLENE (MIRALAX) 17 GM PACK PO SCH (11:30)
[2022-08-19] MEDS ORDERED: IRON SUCROSE 200 MG in 0.9 % SODIUM CHLORIDE 100 ML IV ONE (11:30)
--- NOTE | 2022-08-19 12:24 | Nephrology Progress Note ---
Date of Service August 19, 2022 Assessment & Plan (1) Chronic kidney disease, stage V: (2) Anemia in CKD (chronic kidney disease): (3) Atrial fibrillation with rapid ventricular response: (4) Pleural effusion: (5) Pulmonary hypertension: (6) Severe mitral regurgitation: (7) Hypertension: (8) Secondary hyperparathyroidism of renal origin: Plan 82 y o f with Stage 5 CKD, b/l cr 3.6-3.8, eGFR 10-12, unclear etiology for CKD ( presented late and never had biopsy with h/o thromboembolic disease and high risk to stop anticoagulant), admitted with SOB, A fib with RVR, volume overload. Renal function has been stable at baseline. b/l Pl effusion with worsening of rt pl effusion on CXR this am. Electrolyte acceptable. Has mature left BC AV fistula. Renal function staying relatively stable, electrolyte acceptable. Stable lower extremity edema, shortness of breath improved, >800 ml negative. Hemoglobin low. Epogen 20588 units x 1 dose given on 08/16/22 --continue lasix 20 mg po bid, suggest to continue on DC --Venofer 200 mg iv daily for total 5 doses , OK to switch to po on DC --continue calcitriol 0.5 mcg 3 times a week, avoid all NSAIDs,left arm nephrology precaution. Will follow. Admission and Anticipated Discharge Date Admission Date: August 14, 2022 Desiree Thomas was seen and evaluated this morning. Feeling better, SOB much improved, appetite fair. Net negative >700 ml, renal function electrolyte acceptable. BP fair. Review of Systems Review of Systems: Detail ROS was otherwise unremarkable. Physical Exam Constitutional: WD/WN, vitals as above no acute distress Eyes: + anicteric sclerae Neck: normal visual inspection Respiratory: normal respiratory effort Auscultation: + diminished lung sounds and + crackles Cardiovascular: Rate/Rhythm: regular rate and regular rhythm Extremities: + edema Skin: no rashes Neurologic: no focal motor deficits Psychiatric: Orientation: alert and oriented x 3 Affect: euthymic affect Results & Data ([facility]) Vital Signs (Past 12 Hours) Vital Signs Temp Pulse Pulse Resp BP Pulse Ox O2 Del Method 08/19/22 12:11 36.6 C 61 17 127/65 94 Room Air 08/19/22 12:09 36.5 C 65 18 137/83 91 08/19/22 09:59 52 L 08/19/22 09:52 Room Air 08/19/22 07:45 36.5 C 65 18 137/83 91 Room Air 08/19/22 03:43 36.8 C 56 L 18 112/67 92 Room Air 08/19/22 03:13 59 L PG Care Time/CCT Total # of Minutes Spent Total Time Spent with Patient: Total time spent is greater than 50% in coordination of care (as documented) at patient's floor/unit and/or counseling patient: Coding Level of Care Code 11345 SUB INP/OBS CARE 2/35MIN Diagnoses Chronic kidney disease, stage V N18.5 Anemia in CKD (chronic kidney disease) N18.9; D63.1 Atrial fibrillation with rapid ventricular response I48.91 Pleural effusion J90 Pulmonary hypertension I27.20 Severe mitral regurgitation I34.0 Hypertension I10 Secondary hyperparathyroidism of renal origin N25.81
[2022-08-19] MEDS ORDERED: METOPROLOL TARTRATE 50 MG TAB PO SCH (21:00)
[2022-08-19] MEDS ORDERED: DOCUSATE SODIUM/SENNA 50/8.6MG TAB PO SCH (21:00)
[2022-08-20] MEDS ORDERED: FERROUS SULFATE 325 MG TAB PO SCH (09:00)
== END 2022-08-19 15:37 | DRG 291 ==
LOC: ED 11:25 → SUATTDRO 13:22 → 2S 13:22

== ENCOUNTER 2023-03-10 14:09 | Inpatient (IN) ==
[2023-03-10 14:58] LABS: Basophils # (auto) 0.05 K/uL (0-0.2); Basophils % (auto) 0.9 %; Eosinophils # (auto) 0.13 K/uL (0-0.50); Eosinophils % (auto) 2.4 %; Hematocrit (blood only) 35.1 % (37.0-47.0); Hemoglobin 10.9 g/dl (12.0-16.0); Immature Granulocytes # (auto) 0.01 K/uL (0.01-0.20); Immature Granulocytes % (auto) 0.2 %; Lymphocytes # (auto) 0.68 K/uL (1.2-3.4); Lymphocytes % (auto) 12.5 %; Mean Corpuscular Hemoglobin 29.3 pg (25.0-34.0); Mean Corpuscular Hgb Conc 31.1 g/dL (32.0-36.0); Mean Corpuscular Volume 94.4 fL (80.0-100.0); Monocytes # (auto) 0.52 K/uL (0.11-0.59); Monocytes % (auto) 9.6 %; Neutrophils # (auto) 4.04 K/uL (1.40-6.50); Neutrophils % (auto) 74.4 %; Platelet Count 253 K/uL (130-400); RDW Coefficient of Variation 16.6 % (11.5-14.5); RDW Standard Deviation 57.4 fL (36.4-46.3); Red Blood Count 3.72 M/uL (4.20-5.40); White Blood Count 5.43 K/ul (4.8-10.8)
[2023-03-10 15:30] LABS: INR 1.1 (0.9-1.1); Partial Thromboplastin Time 28.8 Seconds (21.0-31.0); Prothrombin Time 11.6 Seconds (9.0-12.0)
[2023-03-10 15:33] LABS: Albumin Globulin Ratio 1.6 (0.9-2); Albumin Level 4.2 gm/dl (3.4-5.0); BUN Creatinine Ratio 10.3 (10-20); Bilirubin,Total 0.9 mg/dl (0.2-1.0); Calcium 9.7 mg/dl (8.6-10.3); Est GFR (African American) 11.9 ml/min; Est GFR (Non-African American) 10.3 ml/min; Globulin 2.7 gm/dl (2.5-4.0); Potassium 3.9 mmol/L (3.5-5.1); Total Protein 6.9 gm/dl (6.0-8.3)
[2023-03-10 15:39] LABS: Troponin I High Sensitivity 15.6 pg/ml (0-14)
--- NOTE | 2023-03-10 16:09 | XRay Report ---
XR chest 1V not portable CLINICAL HISTORY: Chest pain, nonspecific TECHNIQUE: Single frontal radiograph of the chest was obtained. Comparison: Comparison is made to chest radiograph 12/06/[address] chest 08/21/2020 FINDINGS: No lines and tubes are seen. Cardiomegaly is noted. The aortic arch is calcified. Prominence and ceph alization of the vasculature is seen. Small bilateral pleural effusions are seen with underlying airs pace opacities. IMPRESSION: 1. Cardiomegaly and mild pulmonary edema. 2. Small bilateral pleural effusions. Underlying airspace opacity likely represents atelectasis with or without superimposed aspiration/pneumonia. ACT 112: Negative or not required by law. Electronically signed by: Real Powell M.D. 03/10/2023 4:07 PM
--- NOTE | 2023-03-10 17:15 | Emergency Department Note ---
Impression & Plan Acute on chronic diastolic CHF (congestive heart failure), Restrictive lung disease, Exertional shortness of breath, Acute respiratory failure with hypoxia ED Provider Note Provider: Keenan Villalpando MD DATE OF SERVICE: 03/10/2023 CHIEF COMPLAINT: Shortness of breath, low oxygen level HISTORY OF PRESENT ILLNESS: Patient is a 82-year-old female history of asthma/COPD, DVT/PE on Eliquis, atrial fibrillation, CHF/severe mitral regurg/pulmonary hypertension, CKD 5, restrictive lung disease presenting here today after over the last several days having some increasing weakness and dyspnea on exertion. Work-up feeling more short of breath today and has been using inhalers and nebulizers with minimal improvement. No sick contacts. Denies any pain. Denies falling. Has felt a little bit weak sometimes when the breathing gets short. Found oxygen level be low at home and came here for fu rther evaluation. PAST MEDICAL HISTORY: As noted above MEDICATIONS: Reviewed home medications includes Eliquis SOCIAL HISTORY: Non-smoker PHYSICAL EXAM: GENERAL: alert and oriented in no acute distress on stretcher Head: normocephalic and atraumatic EYES: No injection, discharge or icterus. NECK: Trachea midline. ENT: Mucous membranes pink and moist. LUNGS: Airway patent. No retractions. Breath sounds generally diminished HEART: Regular rate and rhythm. No chest wall tenderness ABDOMEN: Soft and non-tender, without guarding or rebound. SKIN: Acyanotic, warm, dry, without rashes EXTREMITIES: Without swelling, tenderness or deformity NEUROLOGICAL: No focal deficits. No aphasia. No facial droop or slurred speech. EK bpm normal sinus rhythm. No PVC or PAC. No acute ST segment elevation or depression with QTc of 505 CONTINUOUS CARDIAC MONITORING: was ordered and showed a heart rate of 60s-70s bpm in normal sinus rhythm Patient's laboratory studies and imaging reviewed. Differential includes Reactive airway disease, pneumonia, pneumothorax, COPD, CHF, infections, cardiac ischemia, pulmonary embolism, musculoskeletal, gastrointestinal, as well as other pathologies. IMPRESSION/MEDICAL DECISION MAKING: Patient with long history of pulmonary issues and lung issues but not on oxygen at home. Does not have severe swelling of the lower legs. X-ray question some basilar findings questioning a little bit of fluid here. Normal white count. No fever. Low suspicion this represents pneumonia at this time. Reviewed prior pulmonary findings and PFTs and does not seem to be very responsive to bronchodilators. Does have underlying again CHF/MR/pulmonary hypertension somewhat contributing. Will order BNP and respiratory viral panel. RVP is negative. Troponin not significantly elevated. No significant anemia. Chronic CKD noted and near baseline. Believe may benefit from some slight diuresis but will need to do this very carefully given her underlying CKD. Is on Lasix by her report. We will give a small amount additional as well as a DuoNeb and a s mall amount of steroid but will be cautious as given prior testing is not but not responsive. Given her ongoing oxygen issues, will bring in for further evaluation by the hospitalist team. Patient was in agreement this plan. Hospitalist contacted. DIAGNOSIS: Dyspnea on exertion, hypoxia, CHF DISPOSITION: Hospitalist will evaluate Patient was agreeable with this plan. 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 Severe mitral regurgitation Stage 5 chronic kidney disease not on chronic dialysis Vitamin D deficiency Surgical History Hx of hysterectomy Family History Mother Blood clot in vein Father Myocardial infarction Sister Blood clot in vein Breast cancer Aunt Blood clot in vein Son Prostate cancer Denies family history of Ovarian cancer Colorectal cancer Social History Smoking Status: Never smoker Second Hand Exposure: No; Do You Dip or Chew Tobacco: No; Hx Alcohol Use: No Hx Substance Use: No Preferred Language: Maori Communication Ability: Effective Visual Impairment: Limited Hearing Ability: Use of Hearing Aid Saddle Stitching Machine Operator Required: No Beliefs That Will Affect Care: None marital status: / Current Living Situation: Alone current occupational status: retired 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 How many Children do You have: 3 Feels Safe at Home: Yes Childhood Exposure to Second-Hand Smoke: Yes Diet: regular caffeine: No Dental Care, Regularly: Yes Physical Activity Frequency: Does not Exercise Seatbelt Use: always Sunscreen Use: Yes Assistive Devices: Walker Allergies Allergies Allergy/AdvReac Type Severity Reaction Status Date / Time Sulfa (Sulfonamide Allergy Intermediate HEADACHE, Verified 02/15/23 15:14 Antibiotics) VERTIGO Home Meds Home Medications Medication Instructions Recorded Confirmed aspirin 81 mg tablet,delayed 81 mg PO HS 07/02/19 03/10/23 release (Adult Low Dose Aspirin) paroxetine HCl 40 mg tablet 40 mg PO HS 07/25/22 03/10/23 Previous Rx's Medication Instructions Recorded fluticasone propionate 50 1 spray intranasal DAILY #9.9 grams 11/30/21 mcg/actuation nasal spray,suspension (Allergy Relief (fluticasone)) meclizine 12.5 mg tablet 12.5 mg PO TID PRN dizziness #30 06/10/22 tabs polyethylene glycol 3350 17 gram 17 g PO DAILY #30 ea 08/19/22 oral powder packet (Miralax) sennosides 8.6 mg-docusate sodium 1 tab PO BID #60 tabs 08/19/22 50 mg tablet (Senokot-S) amiodarone 200 mg tablet 200 mg PO DAILY #90 tabs 10/04/22 ferrous sulfate 325 mg (65 mg 325 mg PO QAM #90 tabs 10/04/22 iron) tablet,delayed release metoprolol tartrate 25 mg tablet 12.5 mg PO BID #90 tabs 10/04/22 atorvastatin 20 mg tablet 20 mg PO HS #90 tabs 11/10/22 albuterol sulfate 90 mcg/actuation 2 puff inhalation Q6H PRN 11/24/22 aerosol inhaler Shortness Of Breath Or Wheezing #18 grams budesonide-formoterol HFA 160 2 puff inhalation BID #10.2 grams 11/24/22 mcg-4.5 mcg/actuation aerosol inhaler (Symbicort) ipratropium 0.5 mg-albuterol 3 mg 3 ml inhalation Q2H PRN shortness 11/24/22 (2.5 mg base)/3 mL nebulization of breath or wheezing #180 mL soln calcitriol 0.5 mcg capsule 0.5 mcg PO 3XWK #45 caps 12/02/22 amlodipine 5 mg tablet 5 mg PO DAILY #90 tabs 12/21/22 cyanocobalamin (vitamin B-12) 1,000 mcg PO DAILY #90 caps 12/22/22 1,000 mcg capsule apixaban 2.5 mg tablet (Eliquis) 2.5 mg PO BID #180 tabs 01/31/23 furosemide 20 mg tablet 40 mg PO BID #120 tabs 02/01/23 epoetin kole 40,000 unit/mL 40,000 unit subcut .q2w 60 days #4 02/15/23 injection solution mL lorazepam 0.5 mg tablet 0.25 - 0.5 mg PO HS PRN 03/02/23 anxiety/insomnia #30 tabs Results & Data (ED) Vital Signs Vital Signs - 24 hr 03/10/23 14:16 03/10/23 14:22 03/10/23 17:26 Temperature 36.5 C Temperature Source Temporal Artery Scan Pulse Rate 60 Pulse Rate [Right] 62 Respiratory Rate 20 24 Respiratory Effort / Characteristics Non-Labored Spontaneous Respiratory Depth Normal Respiratory Pattern Regular Blood Pressure 137/62 Blood Pressure [Right Arm] 148/60 H Blood Pressure Mean 87 Blood Pressure Mean [Right Arm] 89 Blood Pressure Position Sitting Blood Pressure Position [Right Arm] Pulse Oximetry 87 L 87 L 94 Oxygen Delivery Method Room Air Nasal Cannula Nasal Cannula Oxygen Flow Rate 3 Sepsis Recent Fever Within 48 Hours No Sepsis New/Unexplained Change in Mental Status N/A Sepsis Action Taken by Nursing No Action Required Oxygen Flow Rate - Titration 2 Pulse Oximetry Post Tiitration 92 03/10/23 19:10 Temperature Temperature Source Pulse Rate Pulse Rate [Right] 68 Respiratory Rate 22 Respiratory Effort / Characteristics Respiratory Depth Respiratory Pattern Blood Pressure Blood Pressure [Right Arm] 148/97 H Blood Pressure Mean Blood Pressure Mean [Right Arm] 114 Blood Pressure Position Blood Pressure Position [Right Arm] Semi-fowlers Pulse Oximetry 93 Oxygen Delivery Method Nasal Cannula Oxygen Flow Rate 3 Sepsis Recent Fever Within 48 Hours Sepsis New/Unexplained Change in Mental Status Sepsis Action Taken by Nursing Oxygen Flow Rate - Titration Pulse Oximetry Post Tiitration Laboratory Data 03/10/23 14:32 03/10/23 14:32 Lab Results 03/10/23 03/10/23 03/10/23 Range/Units 14:32 14:32 14:32 WBC 5.43 (4.8-10.8) K/ul RBC 3.72 L (4.20-5.40) M/uL Hgb 10.9 L (12.0-16.0) g/dl Hct 35.1 L (37.0-47.0) % MCV 94.4 (80.0-100.0) fL MCH 29.3 (25.0-34.0) pg MCHC 31.1 L (32.0-36.0) g/dL RDW Std Deviation 57.4 H (36.4-46.3) fL RDW Coeff of Alice 16.6 H (11.5-14.5) % Plt Count 253 (130-400) K/uL MPV 10.0 (9.4-12.4) fL Immature Gran % (Auto) 0.2 % Neut % (Auto) 74.4 % Lymph % (Auto) 12.5 % [place] % (Auto) 9.6 % Eos % (Auto) 2.4 % Baso % (Auto) 0.9 % Neut # (Auto) 4.04 (1.40-6.50) K/uL Lymph # (Auto) 0.68 L (1.2-3.4) K/uL [place] # (Auto) 0.52 (0.11-0.59) K/uL Eos # (Auto) 0.13 (0-0.50) K/uL Baso # (Auto) 0.05 (0-0.2) K/uL Immature Gran # (Auto) 0.01 (0.01-0.20) K/uL PT 11.6 (9.0-12.0) Seconds INR 1.1 (0.9-1.1) APTT 28.8 (21.0-31.0) Seconds PTT Ratio 1.0 Sodium 139 (136-145) mmol/L Potassium 3.9 (3.5-5.1) mmol/L Chloride 103 (98-107) mmol/L Carbon Dioxide 28 (21-32) mmol/L Anion Gap 8 (3-11) BUN 40 H (6-23) mg/dl Creatinine 3.89 H (0.6-1.2) mg/dl Est Cr Clr Drug Dosing 10.0 ml/min Est GFR ( Amer) 11.9 ml/min Est GFR (Non-Af Amer) 10.3 ml/min BUN/Creatinine Ratio 10.3 (10-20) Glucose 114 H (70-99(Fasting)) mg/dl Calcium 9.7 (8.6-10.3) mg/dl Total Bilirubin 0.9 (0.2-1.0) mg/dl AST 35 (13-39) U/L ALT 50 (7-52) U/L Alkaline Phosphatase 65 (34-104) U/L Troponin I High Sens 15.6 H (0-14) pg/ml B-Natriuretic Peptide Total Protein 6.9 (6.0-8.3) gm/dl Albumin 4.2 (3.4-5.0) gm/dl Globulin 2.7 (2.5-4.0) gm/dl Albumin/Globulin Ratio 1.6 (0.9-2) Adenovirus (PCR) (NotDetected) B. pertussis DNA (PCR) (NotDetected) B.parapertussis DNA PCR (NotDetected) C. pneumoniae DNA (PCR) (NotDetected) Coronavirus OC43 (PCR) (NotDetected) Coronavirus HKU1 (PCR) (NotDetected) Coronavirus 229E (PCR) (NotDetected) SARS-CoV-2 (PCR) (NotDetected) Coronavirus NL63 (PCR) (NotDetected) Human Metapneumovir PCR (NotDetected) Influenza Type A (PCR) (NotDetected) Influenza Type B (PCR) (NotDetected) M. pneumoniae (PCR) (NotDetected) Parainfluenza 1 (PCR) (NotDetected) Parainfluenza 2 (PCR) (NotDetected) Parainfluenza 3 (PCR) (NotDetected) Parainfluenza 4 (PCR) (NotDetected) RSV (PCR) (NotDetected) Entero/Rhino (PCR) (NotDetected) 03/10/23 03/10/23 Range/Units 17:23 17:31 WBC (4.8-10.8) K/ul RBC (4.20-5.40) M/uL Hgb (12.0-16.0) g/dl Hct (37.0-47.0) % MCV (80.0-100.0) fL MCH (25.0-34.0) pg MCHC (32.0-36.0) g/dL RDW Std Deviation (36.4-46.3) fL RDW Coeff of Alice (11.5-14.5) % Plt Count (130-400) K/uL MPV (9.4-12.4) fL Immature Gran % (Auto) % Neut % (Auto) % Lymph % (Auto) % [place] % (Auto) % Eos % (Auto) % Baso % (Auto) % Neut # (Auto) (1.40-6.50) K/uL Lymph # (Auto) (1.2-3.4) K/uL [place] # (Auto) (0.11-0.59) K/uL Eos # (Auto) (0-0.50) K/uL Baso # (Auto) (0-0.2) K/uL Immature Gran # (Auto) (0.01-0.20) K/uL PT (9.0-12.0) Seconds INR (0.9-1.1) APTT (21.0-31.0) Seconds PTT Ratio Sodium (136-145) mmol/L Potassium (3.5-5.1) mmol/L Chloride (98-107) mmol/L Carbon Dioxide (21-32) mmol/L Anion Gap (3-11) BUN (6-23) mg/dl Creatinine (0.6-1.2) mg/dl Est Cr Clr Drug Dosing ml/min Est GFR ( Amer) ml/min Est GFR (Non-Af Amer) ml/min BUN/Creatinine Ratio (10-20) Glucose (70-99(Fasting)) mg/dl Calcium (8.6-10.3) mg/dl Total Bilirubin (0.2-1.0) mg/dl AST (13-39) U/L ALT (7-52) U/L Alkaline Phosphatase (34-104) U/L Troponin I High Sens (0-14) pg/ml B-Natriuretic Peptide Cancelled Total Protein (6.0-8.3) gm/dl Albumin (3.4-5.0) gm/dl Globulin (2.5-4.0) gm/dl Albumin/Globulin Ratio (0.9-2) Adenovirus (PCR) Not Detected (NotDetected) B. pertussis DNA (PCR) Not Detected (NotDetected) B.parapertussis DNA PCR Not Detected (NotDetected) C. pneumoniae DNA (PCR) Not Detected (NotDetected) Coronavirus OC43 (PCR) Not Detected (NotDetected) Coronavirus HKU1 (PCR) Not Detected (NotDetected) Coronavirus 229E (PCR) Not Detected (NotDetected) SARS-CoV-2 (PCR) Not Detected (NotDetected) Coronavirus NL63 (PCR) Not Detected (NotDetected) Human Metapneumovir PCR Not Detected (NotDetected) Influenza Type A (PCR) Not Detected (NotDetected) Influenza Type B (PCR) Not Detected (NotDetected) M. pneumoniae (PCR) Not Detected (NotDetected) Parainfluenza 1 (PCR) Not Detected (NotDetected) Parainfluenza 2 (PCR) Not Detected (NotDetected) Parainfluenza 3 (PCR) Not Detected (NotDetected) Parainfluenza 4 (PCR) Not Detected (NotDetected) RSV (PCR) Not Detected (NotDetected) Entero/Rhino (PCR) Not Detected (NotDetected) Administered Medications Discontinued Medications Albuterol (Albut/Ipratrop 3mg/0.5mg Neb 3 Ml Vial) 3 ml NEB NOW STA; Protocol Stop: 03/10/23 17:40 Last Admin: 03/10/23 17:55 Dose: 3 ml Documented By: AB Furosemide (Furosemide Inj 20 Mg/2 Ml Vial) 20 mg IV ONE ONE Stop: 03/10/23 17:40 Last Admin: 03/10/23 17:52 Dose: 20 mg Documented By: AB Methylprednisolone (Methylprednisolone 40 Mg/Ml Vial) 40 mg IV NOW STA Stop: 03/10/23 17:40 Last Admin: 03/10/23 17:55 Dose: 40 mg Documented By: AB Imaging Data Radiologist's Impression: Chest X-Ray 03/10/23 14:22 XR chest 1V not portable CLINICAL HISTORY: Chest pain, nonspecific TECHNIQUE: Single frontal radiograph of the chest was obtained. Comparison: Comparison is made to chest radiograph 12/06/[address] chest 08/21/2020 FINDINGS: No lines and tubes are seen. Cardiomegaly is noted. The aortic arch is calcified. Prominence and cephalization of the vasculature is seen. Small bilateral pleural effusions are seen with underlying airspace opacities. IMPRESSION: 1. Cardiomegaly and mild pulmonary edema. 2. Small bilateral pleural effusions. Underlying airspace opacity likely represents atelectasis with or without superimposed aspiration/pneumonia. ACT 112: Negative or not required by law. Electronically signed by: Real Powell M.D. 03/10/2023 4:07 PM Discharge Plan Visit Data Chief Complaint: Shortness of Breath/Dyspnea Stated Complaint: SOB ED Provider: Keenan Villalpando Discharge Problem: Acute on chronic diastolic CHF (congestive heart failure), Restrictive lung disease, Exertional shortness of breath, Acute respiratory failure with hypoxia Patient Disposition: Being Evaluated by Hospitalist Forms Stand Alone Forms: [facility] [employer] Prescriptions Prescriptions: No Action aspirin [Adult Low Dose Aspirin] 81 mg tablet,delayed release (DR/EC) 81 mg PO HS ferrous sulfate 325 mg (65 mg iron) tablet,delayed release (DR/EC) 325 mg PO QAM Qty: 90 1RF amiodarone 200 mg tablet 200 mg PO DAILY Qty: 90 3RF metoprolol tartrate 25 mg tablet 12.5 mg PO BID Qty: 90 3RF atorvastatin 20 mg tablet 20 mg PO HS Qty: 90 3RF calcitriol 0.5 mcg capsule 0.5 mcg PO 3XWK Qty: 45 3RF Rx Instructions: TAKES MON, WED, & FRI. IN THE HS. amlodipine 5 mg tablet 5 mg PO DAILY Qty: 90 3RF furosemide 20 mg tablet 40 mg PO BID Qty: 120 3RF lorazepam 0.5 mg tablet 0.25 - 0.5 mg PO HS PRN (Reason: anxiety/insomnia) Qty: 30 0RF Rx Instructions: Ongoing therapy Supervising Physician Soledad Meier MD albuterol sulfate 90 mcg/actuation HFA aerosol inhaler 2 puff INH Q6H PRN (Reason: Shortness Of Breath Or Wheezing) Qty: 18 4RF Symbicort 160-4.5 mcg/actuation HFA aerosol inhaler 2 puff INH BID Qty: 10.2 8RF ipratropium-albuterol 0.5 mg-3 mg(2.5 mg base)/3 mL solution for nebulization 3 ml inhalation Q2H PRN (Reason: shortness of breath or wheezing) Qty: 180 3RF fluticasone propionate [Allergy Relief (fluticasone)] 50 mcg/actuation spray,suspension 1 spray INTNAS DAILY Qty: 9.9 3RF Rx Instructions: administer into each nostril once daily epoetin kole 40,000 unit/mL solution 40,000 unit subcut .q2w 60 Days Qty: 4 6RF Rx Instructions: Hold for Hgb >11 meclizine 12.5 mg tablet 12.5 mg PO TID PRN (Reason: dizziness) Qty: 30 0RF cyanocobalamin (vitamin B-12) 1,000 mcg capsule 1,000 mcg PO DAILY Qty: 90 1RF Eliquis 2.5 mg tablet 2.5 mg PO BID Qty: 180 3RF polyethylene glycol 3350 [Miralax] 17 gram Powder In Packet 17 g PO DAILY Qty: 30 0RF sennosides-docusate sodium [Senokot-S] 8.6-50 mg Tablet 1 tab PO BID Qty: 60 0RF paroxetine HCl 40 mg tablet 40 mg PO HS Referrals Referrals: Soledad Meier MD [Primary Care Provider] -
[2023-03-10] MEDS ORDERED: FUROSEMIDE INJ 20 MG/2 ML VIAL IV ONE (17:39)
[2023-03-10] MEDS ORDERED: ALBUT/IPRATROP 3MG/0.5MG NEB 3 ML VIAL NEB STA (17:39)
--- NOTE | 2023-03-10 18:09 | History & Physical Report ---
Date of Service March 10, 2023 Assessment & Plan (1) Acute respiratory failure with hypoxia: Plan: Acute hypoxic respiratory failure, suspect acute on chronic CHF Multifactorial, may have exacerbation of underlying ILD CXR: Cardiomegaly, mild pulmonary edema, small bilateral pleural effusions No leukocytosis Compliant with DOAC as outpatient Baseline creatinine is 3.64.3, admitting creatinine 3.89 Continue diuresis twice daily. Home Lasix 40 mg p.o. increased to 40 mg IV twice daily while inpatient High sensitive troponin 15.6, suspect demand. EKG without acute ST/T wave changes. Troponin trended BNP trending at time of admission [employer] pending History of asthmaCOPD overlap, pulmonary hypertension Patient with bilateral pleural effusions, type II hypertension noted on prior pulmonology visits Small by x-ray, and appears volume overloaded. Will defer thoracentesis to medical management with diuretics at this time Continue Symbicort Received methylprednisolone in ER, improved wheezing at hospitalist assessment. Pred x4 days. Nebs PRN Last PFTs 10/2022:VC 1.30 L 47%, FEV1 1.01 L 49%, FEV1/FVC 78%. DLCO 49% Multiple pulmonary nodules noted on prior pulm visits, low risk no history of smoking, no additional CAT scan recommended for follow-up of these Hypertension Continue amlodipine Severe MR Asymptomatic, continue outpatient follow-up A-fib Continue amiodarone, metoprolol Apixaban continued, patient is compliant with this Hyperlipidemia Continue statin, baby aspirin daily Pre-DM Glucose checks daily, if consistently above 140 can add sliding scale Anxiety/depression Continue home paroxetine/lorazepam History of right hearing loss Suspected Mnire's versus PICA embolus, following up as outpatient with audiology DVT PPx: Anticoagulated Diet: HH CODE: FUll Dispo: PCU for AoC CHF (2) Acute on chronic diastolic CHF (congestive heart failure): (3) Restrictive lung disease: (4) Paroxysmal atrial fibrillation: (5) Chronic kidney disease, stage V: (6) History of pulmonary embolism: History of Present Illness Primary Care Provider: Soledad Meier MD weak, sob, fatigue. Increased O2 requirement at home, no berta eO2 requirement. 3L in ER XR suggestive of CHF Minimal wheezing on exam Steroids + nebs --> improved wheezing but without significant hypoxia improvement Hypoxic to 80s --> >90s on 3L On eliquis for Afib & past PE. compliant with this Per Pt: no shortness of breath at visit. No chest pain, no chest pressure No wheezing this week. Endorses has this intermittently when laying flat she gets a slight wheeze. Denies wheeze at time of assessment Sleeping propped up on 2-3 pillows normally due to shortness of breath. Worsened day before and day of admission --> hypoxic at home and came into er Does not think she has had weight gain. NO stomach pain. -N/V/D Appetite diminished Medical History: Reviewed Medications: Reviewed Surgical History: Reviewed Family history: Reviewed Allergies: Reviewed Social History: Reviewed Code Status:Full COde Allergies Allergy/AdvReac Type Severity Reaction Status Date / Time Sulfa (Sulfonamide Allergy Intermediate HEADACHE, Verified 02/15/23 15:14 Antibiotics) VERTIGO Home Medications Medication Instructions Recorded Confirmed Type aspirin 81 mg tablet,delayed 81 mg PO HS 07/02/19 03/10/23 History release (Adult Low Dose Aspirin) fluticasone propionate 50 1 spray intranasal DAILY #9.9 grams 11/30/21 03/10/23 Rx mcg/actuation nasal spray,suspension (Allergy Relief (fluticasone)) meclizine 12.5 mg tablet 12.5 mg PO TID PRN dizziness #30 06/10/22 03/10/23 Rx tabs paroxetine HCl 40 mg tablet 40 mg PO HS 07/25/22 03/10/23 History polyethylene glycol 3350 17 gram 17 g PO DAILY #30 ea 08/19/22 03/10/23 Rx oral powder packet (Miralax) sennosides 8.6 mg-docusate sodium 1 tab PO BID #60 tabs 08/19/22 03/10/23 Rx 50 mg tablet (Senokot-S) amiodarone 200 mg tablet 200 mg PO DAILY #90 tabs 10/04/22 03/10/23 Rx ferrous sulfate 325 mg (65 mg 325 mg PO QAM #90 tabs 10/04/22 03/10/23 Rx iron) tablet,delayed release metoprolol tartrate 25 mg tablet 12.5 mg PO BID #90 tabs 10/04/22 03/10/23 Rx atorvastatin 20 mg tablet 20 mg PO HS #90 tabs 11/10/22 03/10/23 Rx albuterol sulfate 90 mcg/actuation 2 puff inhalation Q6H PRN 11/24/22 03/10/23 Rx aerosol inhaler Shortness Of Breath Or Wheezing #18 grams budesonide-formoterol HFA 160 2 puff inhalation BID #10.2 grams 11/24/22 03/10/23 Rx mcg-4.5 mcg/actuation aerosol inhaler (Symbicort) ipratropium 0.5 mg-albuterol 3 mg 3 ml inhalation Q2H PRN shortness 11/24/22 03/10/23 Rx (2.5 mg base)/3 mL nebulization of breath or wheezing #180 mL soln calcitriol 0.5 mcg capsule 0.5 mcg PO 3XWK #45 caps 12/02/22 03/10/23 Rx amlodipine 5 mg tablet 5 mg PO DAILY #90 tabs 12/21/22 03/10/23 Rx cyanocobalamin (vitamin B-12) 1,000 mcg PO DAILY #90 caps 12/22/22 03/10/23 Rx 1,000 mcg capsule apixaban 2.5 mg tablet (Eliquis) 2.5 mg PO BID #180 tabs 01/31/23 03/10/23 Rx furosemide 20 mg tablet 40 mg PO BID #120 tabs 02/01/23 03/10/23 Rx epoetin kole 40,000 unit/mL 40,000 unit subcut .q2w 60 days #4 02/15/23 03/10/23 Rx injection solution mL lorazepam 0.5 mg tablet 0.25 - 0.5 mg PO HS PRN 03/02/23 03/10/23 Rx anxiety/insomnia #30 tabs Past Med/Surg History Medical History (Updated 03/10/23 @ 18:26 by Blayne Singleton MD) Acute on chronic diastolic CHF (congestive heart failure) Anxiety Atrial fibrillation with rapid ventricular response Bilateral pulmonary embolism Central retinal artery occlusion, left eye Chronic anticoagulation Hypercholesteremia Mixed conductive and sensorineural hearing loss of left ear with restricted hearing of right ear Pleural effusion Recurrent UTI 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 Severe mitral regurgitation Stage 5 chronic kidney disease not on chronic dialysis Vitamin D deficiency Surgical History Hx of hysterectomy Family History Mother Blood clot in vein Father Myocardial infarction Sister Blood clot in vein Breast cancer Aunt Blood clot in vein Son Prostate cancer Denies family history of Ovarian cancer Colorectal cancer Social History Smoking Status: Never smoker Second Hand Exposure: No; Do You Dip or Chew Tobacco: No; Hx Alcohol Use: No Hx Substance Use: No Preferred Language: Telugu Communication Ability: Effective Visual Impairment: Limited Hearing Ability: Use of Hearing Aid [employer] Required: No Beliefs That Will Affect Care: None marital status: / Current Living Situation: Alone current occupational status: retired 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 NAD. Cooperative. HEENT: Atraumatic, normocephalic. Vision/hearing intact Pulm: Bibasilar crackles. At assessment -wheezes, -rales, -rhonchi. Symmetrical chest rise. No increased work of breathing. No respiratory distress. Cardiac: RRR, -mrg. Radial pulses intact and symmetrical. Abdominal: Nontender, nondistended, soft. BS present. Extremities: 1+ ankle edema, no calf edema Results & Data Results & Data Vital Signs (Past 12 Hours) Vital Signs Temp Pulse Pulse Resp BP BP Pulse Ox 03/10/23 17:26 62 24 148/60 H 94 03/10/23 14:22 87 L 03/10/23 14:16 36.5 C 60 20 137/62 87 L O2 Del Method O2 Flow Rate 03/10/23 17:26 Nasal Cannula 3 03/10/23 14:22 Nasal Cannula 03/10/23 14:16 Room Air PG Care Time/CCT Total # of Minutes Spent Total Time Spent with Patient: Total time spent is greater than 50% in coordination of care (as documented) at patient's floor/unit and/or counseling patient: Coding Level of Care Code 58971 INT INP/OBS CARE 3/75MIN Diagnoses Acute respiratory failure with hypoxia J96.01 Acute on chronic diastolic CHF (congestive heart failure) I50.33 Restrictive lung disease J98.4 Paroxysmal atrial fibrillation I48.0 Chronic kidney disease, stage V N18.5 History of pulmonary embolism Z86.711
[2023-03-10 18:43] LABS: Adenovirus PCR Not Detected (NotDetected); Bordetella parapertussis PCR Not Detected (NotDetected); Bordetella pertussis PCR Not Detected (NotDetected); Chlamydia pneumoniae PCR Not Detected (NotDetected); Coronavirus 229E PCR Not Detected (NotDetected); Coronavirus CoV-2 (COVID19)PCR Not Detected (NotDetected); Coronavirus HKU1 PCR Not Detected (NotDetected); Coronavirus NL63 PCR Not Detected (NotDetected); Coronavirus OC43PCR Not Detected (NotDetected); Human Metapneumovirus PCR Not Detected (NotDetected); Influenza A PCR Not Detected (NotDetected); Influenza B PCR Not Detected (NotDetected); Mycoplasma pneumoniae PCR Not Detected (NotDetected); Parainfluenza Virus 1 PCR Not Detected (NotDetected); Parainfluenza Virus 2 PCR Not Detected (NotDetected); Parainfluenza Virus 3 PCR Not Detected (NotDetected); Parainfluenza Virus 4 PCR Not Detected (NotDetected); Respiratory Syncytial VirusPCR Not Detected (NotDetected); Rhinovirus/Enterovirus PCR Not Detected (NotDetected)
[2023-03-10] MEDS ORDERED: ALBUT/IPRATROP 3MG/0.5MG NEB 3 ML VIAL NEB PRN (21:05)
[2023-03-10] MEDS: ATORVASTATIN 20 MG TAB PO SCH (21:34)
[2023-03-10] MEDS: APIXABAN 2.5 MG TAB PO SCH (21:34)
[2023-03-10] MEDS: ASPIRIN 81 MG ECTAB PO SCH (21:34)
[2023-03-10] MEDS: METOPROLOL TARTRATE 25 MG TAB PO SCH (21:34)
[2023-03-10] MEDS: PARoxetine HCL 20 MG TAB PO SCH (21:35)
[2023-03-10] MEDS: DOCUSATE SODIUM/SENNA 50/8.6MG TAB PO SCH (21:36)
[2023-03-10] MEDS: LORazepam 0.5 MG TAB PO PRN (21:45)
[2023-03-11 06:47] LABS: Basophils # (auto) 0.01 K/uL (0-0.2); Basophils % (auto) 0.4 %; Hematocrit (blood only) 32.5 % (37.0-47.0); Hemoglobin 10.4 g/dl (12.0-16.0); Immature Granulocytes # (auto) 0.01 K/uL (0.01-0.20); Immature Granulocytes % (auto) 0.4 %; Lymphocytes # (auto) 0.38 K/uL (1.2-3.4); Lymphocytes % (auto) 14.1 %; Mean Corpuscular Hemoglobin 29.6 pg (25.0-34.0); Mean Corpuscular Volume 92.6 fL (80.0-100.0); Monocytes # (auto) 0.06 K/uL (0.11-0.59); Monocytes % (auto) 2.2 %; Neutrophils # (auto) 2.24 K/uL (1.40-6.50); Neutrophils % (auto) 82.9 %; Platelet Count 230 K/uL (130-400); RDW Coefficient of Variation 16.4 % (11.5-14.5); RDW Standard Deviation 55.6 fL (36.4-46.3); Red Blood Count 3.51 M/uL (4.20-5.40)
[2023-03-11 07:26] LABS: BUN Creatinine Ratio 11.4 (10-20); Calcium 9.3 mg/dl (8.6-10.3); Creatinine Clr Calc Pharmacy 10.3 ml/min; Est GFR (African American) 12.4 ml/min; Est GFR (Non-African American) 10.7 ml/min; Potassium 3.9 mmol/L (3.5-5.1)
[2023-03-11] MEDS: POLYETHYLENE (MIRALAX) 17 GM PACK PO SCH (08:03)
[2023-03-11] MEDS: DOCUSATE SODIUM/SENNA 50/8.6MG TAB PO SCH ×2 (08:03→20:22)
[2023-03-11] MEDS: FERROUS SULFATE 325 MG TAB PO SCH (08:03)
[2023-03-11] MEDS: predniSONE 20 MG TAB PO SCH (08:04)
[2023-03-11] MEDS: APIXABAN 2.5 MG TAB PO SCH ×2 (08:04→20:25)
[2023-03-11] MEDS: AMIODARONE 200 MG TAB PO SCH (08:04)
[2023-03-11] MEDS: METOPROLOL TARTRATE 25 MG TAB PO SCH ×2 (08:04→20:23)
[2023-03-11] MEDS: FLUTICASONE/VILANTEROL 100/25MCG 14 PUFFS/INHALER INH SCH (08:04)
[2023-03-11] MEDS: amLODIPine BESYLATE 5 MG TAB PO SCH (08:04)
[2023-03-11] MEDS: FUROSEMIDE 40 MG/4 ML VIAL IV SCH ×2 (08:05→16:31)
--- NOTE | 2023-03-11 12:39 | Electrocardiogram Report ---
Test Reason : Blood Pressure : / mmHG Vent. Rate : 065 BPM Atrial Rate : 065 BPM P-R Int : 194 ms QRS Dur : 084 ms QT Int : 486 ms P-R-T Axes : 052 070 055 degrees QTc Int : 505 ms Normal sinus rhythm Poor R wave progression, consider anterior CO vs. lead placement vs. LVH Abnormal ECG When compared with ECG of 14-AUG-2022 12:31, Premature atrial complexes are no longer Present Nonspecific T wave abnormality no longer evident in Inferior leads QT has lengthened Confirmed by Shamar Rubalcava ([id number]) on 03/11/2023 12:39:15 PM Referred By: REFERRED SELF Confirmed By:Shamar Rubalcava
[2023-03-11] MEDS: ATORVASTATIN 20 MG TAB PO SCH (20:19)
[2023-03-11] MEDS: ASPIRIN 81 MG ECTAB PO SCH (20:20)
[2023-03-11] MEDS: PARoxetine HCL 20 MG TAB PO SCH (20:27)
--- NOTE | 2023-03-11 20:59 | Hospitalist Progress Note ---
Date of Service March 11, 2023 Assessment & Plan (1) Acute respiratory failure with hypoxia: Plan: 2nd decompensated diastolic CHF. +/- COPD exacerbation. Cont IV lasix BID. Daily BMP. Cont steroids, inhalers, and prn nebs. Not much in the way of wheezing today - mainly crackles. (2) Acute on chronic diastolic CHF (congestive heart failure): Plan: improving. suspect advanced CKD and her severe MR are playing a role in her decompensation. cont lasix BID. BMP am. cont metoprolol BID. (3) Restrictive lung disease: (4) Paroxysmal atrial fibrillation: Plan: cont amiodarone cont eliquis renally dosed (5) Chronic kidney disease, stage V: Plan: baseline CrCl < 15 baseline Cr mid to high 3's daily BMP while here (6) History of pulmonary embolism: Plan: cont eliquis 2.5mg BID (7) Pulmonary hypertension: Plan: moderate borderline severe on echo 07/2022 2nd to severe MR? 2nd to COPD/lung disease? both? assess for home O2 at d/c (8) Severe mitral regurgitation: Plan: as noted on echo 07/2022 poor surgical candidate given advanced CKD etc. (9) H/O deep venous thrombosis: Plan: noted (10) Anemia: Plan: acceptable H/H 2nd to CKD stage V (11) COPD exacerbation: Plan: received IV steroids at ER presentation now on PO prednisone can start weaning - wheezing improved (12) DVT prophylaxis: Plan: eliquis 2.5mg BID Plan sister updated at bedside will order PT/OT evals Admission and Anticipated Discharge Date Admission Date: March 10, 2023 Subjective tele overnight wnl patient feeling better dyspnea improved making good urine she could not tell me if she had been taking 40mg of lasix BID or 20mg of lasix BID at home sister at bedside Review of Systems Review of Systems: gen - no fevers or chills; has been losing weight; eats about 2 meals/day; despite no change in eating habits the weight is coming off cv - no chest pain pulm - improved symptoms of dyspnea GI - no abd pain/nausea/emesis Physical Exam Physical Exam: gen - lying relatively flat in bed, NAD, pleasant HENT - MMM, hearing impaired neck - JVD present heart - RRR, s1 s2, 2/6 systolic murmur LSB lungs - b/l basilar rales, CTA apices, no distress abd - soft NT ND BS+ ext - trace edema, pulses 2+ b/l Results & Data Results & Data Vital Signs (Past 12 Hours) Vital Signs Temp Pulse Resp BP Pulse Ox O2 Del Method O2 Flow Rate 03/11/23 19:37 36.7 C 66 18 137/67 95 Nasal Cannula 1 03/11/23 15:07 36.4 C L 64 19 131/60 93 Nasal Cannula 1.5 03/11/23 13:22 59 L 93 Nasal Cannula 1.5 03/11/23 10:52 36.5 C 60 19 131/66 95 Nasal Cannula 03/11/23 10:17 84 L Room Air Laboratory Results Laboratory Results - last 24 hr 03/10/23 03/11/23 03/11/23 21:47 05:49 05:49 WBC 2.70 L RBC 3.51 L Hgb 10.4 L Hct 32.5 L MCV 92.6 MCH 29.6 MCHC 32.0 RDW Std Deviation 55.6 H RDW Coeff of Alice 16.4 H Plt Count 230 MPV 10.0 Immature Gran % (Auto) 0.4 Neut % (Auto) 82.9 Lymph % (Auto) 14.1 [place] % (Auto) 2.2 Eos % (Auto) 0.0 Baso % (Auto) 0.4 Neut # (Auto) 2.24 Lymph # (Auto) 0.38 L [place] # (Auto) 0.06 L Eos # (Auto) 0.00 Baso # (Auto) 0.01 Immature Gran # (Auto) 0.01 Sodium 138 Potassium 3.9 Chloride 103 Carbon Dioxide 27 Anion Gap 8 BUN 43 H Creatinine 3.77 H Est Cr Clr Drug Dosing 10.3 Est GFR ( Amer) 12.4 Est GFR (Non-Af Amer) 10.7 BUN/Creatinine Ratio 11.4 Glucose 155 H POC Glucose Calcium 9.3 B-Natriuretic Peptide 1871 H 03/11/23 03/11/23 16:45 20:38 WBC RBC Hgb Hct MCV MCH MCHC RDW Std Deviation RDW Coeff of Alice Plt Count MPV Immature Gran % (Auto) Neut % (Auto) Lymph % (Auto) [place] % (Auto) Eos % (Auto) Baso % (Auto) Neut # (Auto) Lymph # (Auto) [place] # (Auto) Eos # (Auto) Baso # (Auto) Immature Gran # (Auto) Sodium Potassium Chloride Carbon Dioxide Anion Gap BUN Creatinine Est Cr Clr Drug Dosing Est GFR ( Amer) Est GFR (Non-Af Amer) BUN/Creatinine Ratio Glucose POC Glucose 194 H 199 H Calcium B-Natriuretic Peptide PG Care Time/CCT Total # of Minutes Spent Total Time Spent with Patient: Total time spent is greater than 50% in coordination of care (as documented) at patient's floor/unit and/or counseling patient: Coding Level of Care Code 77531 SUB INP/OBS CARE 2/35MIN Diagnoses Acute respiratory failure with hypoxia J96.01 Acute on chronic diastolic CHF (congestive heart failure) I50.33 Restrictive lung disease J98.4 Paroxysmal atrial fibrillation I48.0 Chronic kidney disease, stage V N18.5 History of pulmonary embolism Z86.711 Pulmonary hypertension I27.20 Severe mitral regurgitation I34.0 H/O deep venous thrombosis Z86.718 Anemia D64.89 Anemia type: other cause Other causes of anemia: other cause, not classified COPD exacerbation J44.1 DVT prophylaxis Z29.9 (10) Anemia Anemia type: other cause Other causes of anemia: other cause, not classified Qualified Code(s): D64.89 - Other specified anemias
[2023-03-11] MEDS ORDERED: CALCITRIOL 0.25 MCG CAPSULE PO SCH (21:00)
[2023-03-11] MEDS: LANTUS PER UNIT CHARGE SQ SCH (21:11)
[2023-03-11] MEDS: LORazepam 0.5 MG TAB PO PRN (23:20)
[2023-03-12 06:49] LABS: BUN Creatinine Ratio 12.1 (10-20); Calcium 9.2 mg/dl (8.6-10.3); Creatinine Clr Calc Pharmacy 8.9 ml/min; Est GFR (African American) 10.4 ml/min; Est GFR (Non-African American) 8.9 ml/min; Potassium 3.6 mmol/L (3.5-5.1)
[2023-03-12 07:32] LABS: Basophils # (auto) 0.01 K/uL (0-0.2); Basophils % (auto) 0.1 %; Hematocrit (blood only) 32.3 % (37.0-47.0); Hemoglobin 10.6 g/dl (12.0-16.0); Immature Granulocytes # (auto) 0.03 K/uL (0.01-0.20); Immature Granulocytes % (auto) 0.4 %; Lymphocytes # (auto) 0.68 K/uL (1.2-3.4); Lymphocytes % (auto) 9.6 %; Mean Corpuscular Hemoglobin 29.4 pg (25.0-34.0); Mean Corpuscular Hgb Conc 32.8 g/dL (32.0-36.0); Mean Corpuscular Volume 89.7 fL (80.0-100.0); Mean Platelet Volume 10.1 fL (9.4-12.4); Monocytes # (auto) 0.62 K/uL (0.11-0.59); Monocytes % (auto) 8.7 %; Neutrophils # (auto) 5.76 K/uL (1.40-6.50); Neutrophils % (auto) 81.2 %; Platelet Count 275 K/uL (130-400); RDW Coefficient of Variation 16.2 % (11.5-14.5); RDW Standard Deviation 53.6 fL (36.4-46.3)
[2023-03-12] MEDS: amLODIPine BESYLATE 5 MG TAB PO SCH (08:04)
[2023-03-12] MEDS: DOCUSATE SODIUM/SENNA 50/8.6MG TAB PO SCH ×2 (08:04→21:09)
[2023-03-12] MEDS: FERROUS SULFATE 325 MG TAB PO SCH (08:04)
[2023-03-12] MEDS: APIXABAN 2.5 MG TAB PO SCH ×2 (08:04→21:07)
[2023-03-12] MEDS: predniSONE 20 MG TAB PO SCH (08:04)
[2023-03-12] MEDS: AMIODARONE 200 MG TAB PO SCH (08:04)
[2023-03-12] MEDS: METOPROLOL TARTRATE 25 MG TAB PO SCH ×2 (08:04→21:12)
[2023-03-12] MEDS: FUROSEMIDE 40 MG/4 ML VIAL IV SCH (08:05)
[2023-03-12] MEDS: FLUTICASONE/VILANTEROL 100/25MCG 14 PUFFS/INHALER INH SCH (08:05)
[2023-03-12] MEDS: POLYETHYLENE (MIRALAX) 17 GM PACK PO SCH (08:05)
--- NOTE | 2023-03-12 16:21 | Hospitalist Progress Note ---
Date of Service March 12, 2023 Assessment & Plan (1) Acute respiratory failure with hypoxia: Plan: 2nd decompensated diastolic CHF. +/- COPD exacerbation. resolved. creatinine has risen with diuresis - stop lasix. wean steroids. (2) Acute on chronic diastolic CHF (congestive heart failure): Plan: resolved. creatinine has risen -- stop lasix today. suspect advanced CKD and her severe MR are playing a role in her decompensation. BMP am. cont metoprolol BID. (3) Restrictive lung disease: (4) Paroxysmal atrial fibrillation: Plan: cont amiodarone cont eliquis renally dosed (5) Chronic kidney disease, stage V: Plan: baseline CrCl < 15 baseline Cr mid to high 3's now >4 stop diuresis daily BMP while here (6) History of pulmonary embolism: Plan: cont eliquis 2.5mg BID (7) Pulmonary hypertension: Plan: moderate borderline severe on echo 07/2022 2nd to severe MR? 2nd to COPD/lung disease? both? assess for home O2 at d/c with 2-step (8) Severe mitral regurgitation: Plan: as noted on echo 07/2022 poor surgical candidate given advanced CKD etc. we had a brief discussion about this today - she is now contemplating whether to at least go to [facility] for a discussion about it she sees Dr Dixon Wednesday 03/14 in clinic (9) H/O deep venous thrombosis: Plan: noted (10) Anemia: Plan: acceptable H/H 2nd to CKD stage V (11) COPD exacerbation: Plan: received IV steroids at ER presentation now on PO prednisone cont prednisone lungs sound good today (12) DVT prophylaxis: Plan: eliquis 2.5mg BID Plan attempted to call son last pm - no answer, left message attempted to call sera Solorzano today - no answer, also left message PT, OT fitz to ensure good for home Hba1c 5.2% in January - but BSGs high suspect a1c is erroneous due to anemia lantus + novolog while here BSGs will improve w/ weaning the prednisone Admission and Anticipated Discharge Date Admission Date: March 10, 2023 Subjective patient sitting in chair during the visit feels well no dyspnea minimal cough no RIVAS no chest pain eating ok ambulating in room Review of Systems Review of Systems: gen - no fevers or chills cv - no cp, no orthopnea, no PND pulm - no wheezing GI - no nausea/emesis Physical Exam Physical Exam: gen - looks great, NAD HENT - MMM neck - no obvious JVD at 90 degrees upright heart - RRR, s1 s2, 2/6 systolic murmur LSB lungs - CTA b/l; no wheeze, no rales abd - soft NT ND BS+ ext - trace edema, pulses 2+ b/l psych - a/o x 3 Results & Data Results & Data Vital Signs (Past 12 Hours) Vital Signs Temp Pulse Pulse Resp BP Pulse Ox O2 Del Method 03/12/23 15:41 36.8 C 55 L 20 124/60 94 Room Air 03/12/23 15:28 54 L 03/12/23 11:11 36.6 C 56 L 18 130/61 92 Room Air 03/12/23 09:00 Nasal Cannula 03/12/23 08:00 60 03/12/23 07:14 36.6 C 61 18 126/72 96 Nasal Cannula O2 Flow Rate 03/12/23 15:41 03/12/23 15:28 03/12/23 11:11 03/12/23 09:00 1 03/12/23 08:00 03/12/23 07:14 2 Laboratory Results Laboratory Results - last 48 hr 03/11/23 03/11/23 03/12/23 16:45 20:38 06:05 WBC 7.10 RBC 3.60 L Hgb 10.6 L Hct 32.3 L MCV 89.7 MCH 29.4 MCHC 32.8 RDW Std Deviation 53.6 H RDW Coeff of Alice 16.2 H Plt Count 275 MPV 10.1 Immature Gran % (Auto) 0.4 Neut % (Auto) 81.2 Lymph % (Auto) 9.6 [place] % (Auto) 8.7 Eos % (Auto) 0.0 Baso % (Auto) 0.1 Neut # (Auto) 5.76 Lymph # (Auto) 0.68 L [place] # (Auto) 0.62 H Eos # (Auto) 0.00 Baso # (Auto) 0.01 Immature Gran # (Auto) 0.03 Sodium Potassium Chloride Carbon Dioxide Anion Gap BUN Creatinine Est Cr Clr Drug Dosing Est GFR ( Amer) Est GFR (Non-Af Amer) BUN/Creatinine Ratio Glucose POC Glucose 194 H 199 H Calcium 03/12/23 03/12/23 03/12/23 06:05 07:55 12:07 WBC RBC Hgb Hct MCV MCH MCHC RDW Std Deviation RDW Coeff of [place] Plt Count MPV Immature Gran % (Auto) Neut % (Auto) Lymph % (Auto) [place] % (Auto) Eos % (Auto) Baso % (Auto) Neut # (Auto) Lymph # (Auto) [place] # (Auto) Eos # (Auto) Baso # (Auto) Immature Gran # (Auto) Sodium 137 Potassium 3.6 Chloride 101 Carbon Dioxide 27 Anion Gap 9 BUN 53 H Creatinine 4.37 H D Est Cr Clr Drug Dosing 8.9 Est GFR ( Amer) 10.4 Est GFR (Non-Af Amer) 8.9 BUN/Creatinine Ratio 12.1 Glucose 118 H POC Glucose 111 H 195 H Calcium 9.2 PG Care Time/CCT Total # of Minutes Spent Total Time Spent with Patient: Total time spent is greater than 50% in coordination of care (as documented) at patient's floor/unit and/or counseling patient: Coding Level of Care Code 63410 SUB INP/OBS CARE 2/35MIN Diagnoses Acute respiratory failure with hypoxia J96.01 Acute on chronic diastolic CHF (congestive heart failure) I50.33 Restrictive lung disease J98.4 Paroxysmal atrial fibrillation I48.0 Chronic kidney disease, stage V N18.5 History of pulmonary embolism Z86.711 Pulmonary hypertension I27.20 Severe mitral regurgitation I34.0 H/O deep venous thrombosis Z86.718 Anemia D64.89 Anemia type: other cause Other causes of anemia: other cause, not classified COPD exacerbation J44.1 DVT prophylaxis Z29.9 (10) Anemia Anemia type: other cause Other causes of anemia: other cause, not classified Qualified Code(s): D64.89 - Other specified anemias
[2023-03-12] MEDS: INSULIN ASPART PER UNIT CHARGE SC SCH ×2 (17:22→21:09)
[2023-03-12] MEDS: ATORVASTATIN 20 MG TAB PO SCH (21:07)
[2023-03-12] MEDS: ASPIRIN 81 MG ECTAB PO SCH (21:08)
[2023-03-12] MEDS: PARoxetine HCL 20 MG TAB PO SCH (21:12)
[2023-03-12] MEDS: LANTUS PER UNIT CHARGE SQ SCH (21:14)
[2023-03-12] MEDS: LORazepam 0.5 MG TAB PO PRN (22:00)
[2023-03-13 06:23] LABS: BUN Creatinine Ratio 15.1 (10-20); Calcium 8.8 mg/dl (8.6-10.3); Creatinine Clr Calc Pharmacy 8.7 ml/min; Est GFR (African American) 10.2 ml/min; Est GFR (Non-African American) 8.8 ml/min; Potassium 3.6 mmol/L (3.5-5.1)
[2023-03-13] MEDS: INSULIN ASPART PER UNIT CHARGE SC SCH ×2 (08:07→12:15)
[2023-03-13] MEDS: FERROUS SULFATE 325 MG TAB PO SCH (08:09)
[2023-03-13] MEDS: FLUTICASONE/VILANTEROL 100/25MCG 14 PUFFS/INHALER INH SCH (08:09)
[2023-03-13] MEDS: APIXABAN 2.5 MG TAB PO SCH (08:09)
[2023-03-13] MEDS: DOCUSATE SODIUM/SENNA 50/8.6MG TAB PO SCH (08:09)
[2023-03-13] MEDS: amLODIPine BESYLATE 5 MG TAB PO SCH (08:09)
[2023-03-13] MEDS: POLYETHYLENE (MIRALAX) 17 GM PACK PO SCH (08:10)
[2023-03-13] MEDS: METOPROLOL TARTRATE 25 MG TAB PO SCH (08:10)
[2023-03-13] MEDS: AMIODARONE 200 MG TAB PO SCH (08:11)
[2023-03-13] MEDS ORDERED: predniSONE 20 MG TAB PO SCH (09:00)
--- NOTE | 2023-03-13 15:33 | Discharge Summary ---
Date of Service March 13, 2023 Admission HPI Per Admitting Provider weak, sob, fatigue. Increased O2 requirement at home, no berta eO2 requirement. 3L in ER XR suggestive of CHF Minimal wheezing on exam Steroids + nebs --> improved wheezing but without significant hypoxia improvement Hypoxic to 80s --> >90s on 3L On eliquis for Afib & past PE. compliant with this Per Pt: no shortness of breath at visit. No chest pain, no chest pressure No wheezing this week. Endorses has this intermittently when laying flat she gets a slight wheeze. Denies wheeze at time of assessment Sleeping propped up on 2-3 pillows normally due to shortness of breath. Worsened day before and day of admission --> hypoxic at home and came into er Does not think she has had weight gain. NO stomach pain. -N/V/D Appetite diminished Medical History: Reviewed Medications: Reviewed Surgical History: Reviewed Family history: Reviewed Allergies: Reviewed Social History: Reviewed Code Status:Full COde Discharge Exam gen - looks great, NAD HENT - MMM neck - no obvious JVD at 90 degrees upright heart - RRR, s1 s2, 2/6 systolic murmur LSB lungs - CTA b/l; no wheeze, no rales abd - soft NT ND BS+ ext - trace edema, pulses 2+ b/l psych - a/o x 3 Discharge Data Allergies Allergy/AdvReac Type Severity Reaction Status Date / Time Sulfa (Sulfonamide Allergy Intermediate HEADACHE, Verified 02/15/23 15:14 Antibiotics) VERTIGO Consultations 03/10/23 18:09 ED Decision to Admit Stat Hospital Course (1) Acute respiratory failure with hypoxia: 2nd decompensated diastolic CHF. +/- COPD exacerbation. resolved. creatinine has risen with diuresis - stop lasix. wean steroids. (2) Acute on chronic diastolic CHF (congestive heart failure): resolved. creatinine has risen -- stop lasix today. suspect advanced CKD and her severe MR are playing a role in her decompensation. BMP am. cont metoprolol BID. (3) Restrictive lung disease: (4) Paroxysmal atrial fibrillation: cont amiodarone cont eliquis renally dosed (5) Chronic kidney disease, stage V: baseline CrCl < 15 baseline Cr mid to high 3's now >4 stop diuresis daily BMP while here (6) History of pulmonary embolism: cont eliquis 2.5mg BID (7) Pulmonary hypertension: moderate borderline severe on echo 07/2022 2nd to severe MR? 2nd to COPD/lung disease? both? assess for home O2 at d/c with 2-step (8) Severe mitral regurgitation: as noted on echo 07/2022 poor surgical candidate given advanced CKD etc. we had a brief discussion about this today - she is now contemplating whether to at least go to [facility] for a discussion about it she sees Dr Dixon Wednesday 03/14 in clinic (9) H/O deep venous thrombosis: noted (10) Anemia: acceptable H/H 2nd to CKD stage V (11) COPD exacerbation: received IV steroids at ER presentation now on PO prednisone cont prednisone lungs sound good today (12) DVT prophylaxis: eliquis 2.5mg BID Plan attempted to call son last pm - no answer, left message attempted to call sera Solorzano today - no answer, also left message PT, OT evals to ensure good for home Hba1c 5.2% in January - but BSGs high suspect a1c is erroneous due to anemia lantus + novolog while here BSGs will improve w/ weaning the prednisone Discharge Plan Discharge Items Patient Disposition: Home - Self-Care Reason For Visit: Difficulty breathing Discharge Diagnosis: Difficulty breathing - resolved; due to combination of fluid build-up in the lungs from congestive heart failure & chronic kidney disease. Activity: As commented below Activity Comment: gradually increase activities over the next few days, as tolerated Non-emergency contact: Primary Care Provider and Phone Technician Call non-emergency contact if: you have any medication questions, your symptoms worsen and you have a fever Follow-up/Referrals: Vic Dixon Jr, MD, [facility] [Physician] - 03/14/23 (You are scheduled for an injection at 2pm, followed by an office visit with Dr Dixon at 230pm. ) Soledad Meier MD [Primary Care Provider] - Diet: Heart Healthy Fluids: 1500ml (6 cups) Ambulatory Orders: Basic Metabolic Panel (Routine) Timeframe: [id number] Location: Determined by Patient Ordered By: Alberto Olivares Attending Provider Instructions: Mrs Raygoza, You were hospitalized due to difficulty breathing. This was due to water build-up in the lungs. A combination of congestive heart failure along with severe kidney disease were the 2 contributors to this. You improved nicely with IV diuretics. We did a walking test to see if you need oxygen at home; at this time you do not need oxygen, but you may need it in the future due to your heart & lung probl ems. This will need to be followed carefully. Recommendations - 1. HOLD your furosemide until you see Dr Dixon tomorrow in the office. 2. have a blood draw this 03/16/23; at the latest please do it by the AM of 03/17/23. We are rechecking your kidney function. 3. see Dr Dixon tomorrow as scheduled. Return to [facility] if - * you have worsening shortness of breath * you have chest pains * you have fever over 100 degrees * any other concerns It was our pleasure caring for you! Pending Studies at Discharge: No Stand-Alone Forms: My [facility], Smoking Cessation Medications and DC Order Prescriptions: Continued aspirin [Adult Low Dose Aspirin] 81 mg tablet,delayed release (DR/EC) 81 mg PO HS ferrous sulfate 325 mg (65 mg iron) tablet,delayed release (DR/EC) 325 mg PO QAM Qty: 90 1RF amiodarone 200 mg tablet 200 mg PO DAILY Qty: 90 3RF metoprolol tartrate 25 mg tablet 12.5 mg PO BID Qty: 90 3RF atorvastatin 20 mg tablet 20 mg PO HS Qty: 90 3RF calcitriol 0.5 mcg capsule 0.5 mcg PO 3XWK Qty: 45 3RF Rx Instructions: TAKES MON, WED, & FRI. IN THE HS. amlodipine 5 mg tablet 5 mg PO DAILY Qty: 90 3RF lorazepam 0.5 mg tablet 0.25 - 0.5 mg PO HS PRN (Reason: anxiety/insomnia) Qty: 30 0RF Rx Instructions: Ongoing therapy Supervising Physician Soledad Meier MD albuterol sulfate 90 mcg/actuation HFA aerosol inhaler 2 puff INH Q6H PRN (Reason: Shortness Of Breath Or Wheezing) Qty: 18 4RF Symbicort 160-4.5 mcg/actuation HFA aerosol inhaler 2 puff INH BID Qty: 10.2 8RF ipratropium-albuterol 0.5 mg-3 mg(2.5 mg base)/3 mL solution for nebulization 3 ml inhalation Q2H PRN (Reason: shortness of breath or wheezing) Qty: 180 3RF fluticasone propionate [Allergy Relief (fluticasone)] 50 mcg/actuation spray,suspension 1 spray INTNAS DAILY Qty: 9.9 3RF Rx Instructions: administer into each nostril once daily epoetin kole 40,000 unit/mL solution 40,000 unit subcut .q2w 60 Days Qty: 4 6RF Rx Instructions: Hold for Hgb >11 meclizine 12.5 mg tablet 12.5 mg PO TID PRN (Reason: dizziness) Qty: 30 0RF cyanocobalamin (vitamin B-12) 1,000 mcg capsule 1,000 mcg PO DAILY Qty: 90 1RF Eliquis 2.5 mg tablet 2.5 mg PO BID Qty: 180 3RF polyethylene glycol 3350 [Miralax] 17 gram Powder In Packet 17 g PO DAILY Qty: 30 0RF sennosides-docusate sodium [Senokot-S] 8.6-50 mg Tablet 1 tab PO BID Qty: 60 0RF paroxetine HCl 40 mg tablet 40 mg PO HS Held furosemide 20 mg tablet 40 mg PO BID Qty: 120 3RF Hold Instructions: hold until you see Dr Dixon Discharge Orders: Discharge Order (Routine); Ordered 03/13/23 Ordered By: Alberto oSw Admission Data Admit Date/Time: 03/10/23 18:17 Attending Provider: Alberto Sow Admit Provider: Blayne Singleton Primary Care Provider: Soledad Meier Other Providers: Blayne Singleton Coding Diagnoses Acute respiratory failure with hypoxia J96.01 Acute on chronic diastolic CHF (congestive heart failure) I50.33 Restrictive lung disease J98.4 Paroxysmal atrial fibrillation I48.0 Chronic kidney disease, stage V N18.5 History of pulmonary embolism Z86.711 Pulmonary hypertension I27.20 Severe mitral regurgitation I34.0 H/O deep venous thrombosis Z86.718 Anemia D64.89 Anemia type: other cause Other causes of anemia: other cause, not classified COPD exacerbation J44.1 DVT prophylaxis Z29.9
== END 2023-03-13 15:58 | disposition home or self-care (01) | DRG 291 ==
LOC: ED 14:09 → 4W 18:17 → SUATTDRO 18:17 → 4W 20:33

== ENCOUNTER 2023-06-06 11:13 | Inpatient (IN) ==
[2023-06-06 13:17] LABS: Basophils # (auto) 0.06 K/uL (0.00-0.20); Basophils % (auto) 1.1 %; Eosinophils # (auto) 0.14 K/uL (0.00-0.50); Eosinophils % (auto) 2.5 %; Hematocrit (blood only) 36.9 % (37.0-47.0); Hemoglobin 11.2 g/dl (12.0-16.0); Immature Granulocytes # (auto) 0.02 K/uL (0.01-0.20); Immature Granulocytes % (auto) 0.4 %; Lymphocytes # (auto) 0.92 K/uL (1.20-3.40); Lymphocytes % (auto) 16.2 %; Mean Corpuscular Hemoglobin 27.9 pg (25.0-34.0); Mean Corpuscular Hgb Conc 30.4 g/dL (32.0-36.0); Mean Platelet Volume 9.8 fL (9.4-12.4); Monocytes # (auto) 0.48 K/uL (0.11-0.59); Monocytes % (auto) 8.4 %; Neutrophils # (auto) 4.07 K/uL (1.40-6.50); Neutrophils % (auto) 71.4 %; Platelet Count 253 K/uL (130-400); RDW Coefficient of Variation 18.9 % (11.5-14.5); RDW Standard Deviation 63.7 fL (36.4-46.3); Red Blood Count 4.01 M/uL (4.20-5.40); White Blood Count 5.69 K/ul (4.8-10.8)
[2023-06-06 13:33] LABS: Alanine Aminotransferase 38 U/L (7-52); Albumin Globulin Ratio 1.3 (0.9-2); Alkaline Phosphatase 65 U/L (34-104); Anion Gap 8 (3-11); Aspartate Aminotransferase 37 U/L (13-39); BUN Creatinine Ratio 13.1 (10-20); Bilirubin,Total 0.8 mg/dl (0.2-1.0); Blood Urea Nitrogen 49 mg/dl (6-23); Calcium 9.7 mg/dl (8.6-10.3); Carbon Dioxide 27 mmol/L (21-32); Chloride 103 mmol/L (98-107); Est GFR (African American) 12.5 ml/min; Est GFR (Non-African American) 10.8 ml/min; Glucose 116 mg/dl (70-99(Fasting)); Lipase 34 U/L (11-82); Potassium 3.7 mmol/L (3.5-5.1); Sodium 138 mmol/L (136-145)
--- NOTE | 2023-06-06 13:37 | XRay Report ---
XR chest 1V not portable CLINICAL HISTORY: Chest pain, nonspecific TECHNIQUE: Single frontal radiograph of the chest was obtained. Comparison: Comparison is made to chest radiographs 06/09/2023 FINDINGS: No lines and tubes are seen. Calcified aortic knob is seen. Reticular interstitial opacities are seen . No evidence of pleural effusion or pneumothorax. IMPRESSION: No acute chest disease. ACT 112: Negative or not required by law. Electronically signed by: Real Powell M.D. 06/06/2023 1:36 PM
[2023-06-06 13:38] LABS: Troponin I High Sensitivity 25.7 pg/ml (0-14)
--- NOTE | 2023-06-06 15:18 | Emergency Department Note ---
Impression & Plan Pleural effusion, Hypoxia, Elevated troponin I level ED Provider Note NAME: JAZMÍN CARPENTER AGE: 82 SEX: F : 1940 ARRIVES VIA: Walk-In INFORMANT: Patient, the patient's family members ED PROVIDER(S): The patient's family members CHIEF COMPLAINT: Difficulty breathing HPI: The patient is an 82-year-old female who presented to the emergency department with family for an evaluation of difficulty breathing. The patient has a history of pleural effusion. She has had thoracentesis in the past. She had 2 thoracentesis this month but apparently she is not doing much better. When she awoke this morning she was found have oxygen saturation in the 70s. Her family brought her to the emergency department for further evaluation. She denies having any chest pain or abdominal swelling. She took extra Lasix today. She did not see her family doctor. The patient denies having any dysuria or frequency. She does feel better now that she was placed on supplemental oxygen. ROS: See above HPI for pertinent positives & negatives. A total of 10 systems reviewed and were otherwise negative. PAST MEDICAL HISTORY: See Below PAST SURGICAL HISTORY: See Below FAMILY HISTORY: See Below SOCIAL HISTORY: See Below HOME MEDICATIONS: See Below ALLERGIES: See Below VITALS: See Below PHYSICAL EXAMINATION: GENERAL: Patient is awake alert in no acute distress patient is resting comfortably and showing no signs of anxiety EYES: The conjunctivae are clear. The pupils are round and reactive. EARS, NOSE, MOUTH AND THROAT: The nose is without any evidence of any deformity. Mucous membranes are moist. Tongue is midline. NECK: The neck is nontender and supple. RESPIRATORY: Diminished breath sounds are noted at both bases. There is mild conversational dyspnea appreciated. CARDIOVASCULAR: Regular rate and rhythm noted there no murmurs rubs or gallops normal S1 normal S2. GASTROINTESTINAL: The abdomen is soft. Abdomen is nontender. MUSCULOSKELETAL/EXTREMITIES: There is no evidence of gross deformity full range of motion is noted in the hips and shoulders. SKIN: There is no obvious evidence of any rash. There are no petechiae, pallor or cyanosis noted. NEUROLOGIC: Patient is awake alert and oriented x3 MEDICAL DECISION MAKING: The patient is an 82-year-old female who presented to the emergency department for an evaluation of difficulty breathing. The patient had a history of pleural effusions in the past. The patient has had these drained in the past. She started to develop worsening shortness of breath and was placed on supple oxygen. The patient was feeling much better on supple oxygen but she does not normally use this amount of oxygen at home. I discussed the patient's laboratory and radiographic studies with her. She did take an extra dose of Lasix at home. I did not have much to offer in the way of therapeutic intervention at this time however given the patient's unstable vital signs I did discuss her condition with the on-call [facility] hospitalist. They have agreed to evaluate the patient in the emergency department. The patient may require another thoracentesis. Triage Nursing notes reviewed. Prior medical records reviewed Vital Signs: reviewed and remarkable for hypoxia Differential diagnosis: Reactive airway disease, pneumonia, pneumothorax, COPD, CHF, infections, cardiac ischemia, pulmonary embolism, musculoskeletal, gastrointestinal, as well as other pathologies. ER treatment provided: See below Diagnostics interpreted by me: ECG: EKG was obtained in the emergency department. My interpretation is sinus bradycardia at 53 bpm. There was no ectopy. Nonspecific ST segment abnormalities were noted in the lateral and inferior leads. This was compared to a tracing from April 13, 2023. No changes were noted. Cardiac Monitoring: An order was placed for continuous cardiac monitoring. The monitor shows a rate of 58 bpm with sinus bradycardia. Laboratory studies: As stated above and show below. Imaging studies: See below. Radiographic imaging was reviewed by myself Consultation(s): I discussed this case with Dr. Landa who was on-call for the [facility] hospitalist group. Past Med/Surg History Medical History COPD (chronic obstructive pulmonary disease) Rheumatoid arthritis Slow to wake up after anesthesia happened once time Hx of vertigo "none for quite some time, occurred when taking sulfa for her bladder problems" Mitral regurgitation Acute respiratory failure with hypoxia hx-hospitalized 04/21/23 @[facility] Restrictive lung disease daily inh, inh and neb prn Paroxysmal atrial fibrillation Pleural effusion 07/2022, pt unsure about this? Chronic kidney disease, stage V no dialysis; f/u dr. tinsley Acute on chronic diastolic CHF (congestive heart failure) recently hospitalized @[facility] on 04/21/23 Chronic anticoagulation Atrial fibrillation with rapid ventricular response currently on eliquis; f/u dr. 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 Surgical History History of esophagogastroduodenoscopy (EGD) Hx of colonoscopy Hx of vein stripping Hx of hysterectomy Family History Mother Blood clot in vein Father Myocardial infarction Sister Blood clot in vein Breast cancer Aunt Blood clot in vein Son Prostate cancer Denies family history of Ovarian cancer Colorectal cancer Social History Smoking Status: Never smoker Second Hand Exposure: Yes (hx growing up); Do You Dip or Chew Tobacco: No; Hx Alcohol Use: No Hx Substance Use: No Preferred Language: French Communication Ability: Effective Visual Impairment: Limited Hearing Ability: Use of Hearing Aid [employer] Keyholder Required: No Beliefs That Will Affect Care: None marital status: / Current Living Situation: Alone Current Living Situation Comment: family assists w/ driving to drs appts and getting groceries current occupational status: retired 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 How many Children do You have: 3 Feels Safe at Home: Yes Childhood Exposure to Second-Hand Smoke: Yes Diet: regular caffeine: No Dental Care, Regularly: Yes Physical Activity Frequency: Does not Exercise Seatbelt Use: always Sunscreen Use: Yes Assistive Devices: Denture - Upper and Hearing Aid - Bilateral Allergies Allergies Allergy/AdvReac Type Severity Reaction Status Date / Time Sulfa (Sulfonamide AdvReac Intermediate HEADACHE, Verified 06/06/23 16:24 Antibiotics) VERTIGO adhesive AdvReac skin tears Verified 06/06/23 16:27 Home Meds Home Medications Medication Instructions Recorded Confirmed aspirin 81 mg tablet,delayed 81 mg PO HS 07/02/19 06/06/23 release (Adult Low Dose Aspirin) paroxetine HCl 40 mg tablet 40 mg PO HS 07/25/22 06/06/23 fluticasone propionate 50 2 spray intranasal DAILY PRN 04/21/23 06/06/23 mcg/actuation nasal allergies spray,suspension (Allergy Relief (fluticasone)) furosemide 20 mg tablet 20 mg PO BID 04/21/23 06/06/23 polyethylene glycol 3350 17 gram 17 g PO DAILY PRN Constipation 04/21/23 06/06/23 oral powder packet (Miralax) amiodarone 200 mg tablet 200 mg PO QPM 05/12/23 06/06/23 sodium chloride 0.9 % solution 5 ml miscellaneous BID 06/06/23 06/06/23 (Saline Wound Wash) Previous Rx's Medication Instructions Recorded meclizine 12.5 mg tablet 12.5 mg PO TID PRN dizziness #30 06/10/22 tabs sennosides 8.6 mg-docusate sodium 1 tab PO BID #60 tabs 08/19/22 50 mg tablet (Senokot-S) ferrous sulfate 325 mg (65 mg 325 mg PO QAM #90 tabs 10/04/22 iron) tablet,delayed release metoprolol tartrate 25 mg tablet 12.5 mg (1/2 x 25 mg) PO BID #90 10/04/22 tabs atorvastatin 20 mg tablet 20 mg PO HS #90 tabs 11/10/22 albuterol sulfate 90 mcg/actuation 2 puff inhalation Q6H PRN 11/24/22 aerosol inhaler Shortness Of Breath Or Wheezing #18 grams budesonide-formoterol HFA 160 2 puff inhalation BID #10.2 grams 11/24/22 mcg-4.5 mcg/actuation aerosol inhaler (Symbicort) ipratropium 0.5 mg-albuterol 3 mg 3 ml inhalation Q2H PRN shortness 11/24/22 (2.5 mg base)/3 mL nebulization of breath or wheezing #180 mL soln calcitriol 0.5 mcg capsule 0.5 mcg PO 3XWK #45 caps 12/02/22 cyanocobalamin (vitamin B-12) 1,000 mcg PO DAILY #90 caps 12/22/22 1,000 mcg capsule apixaban 2.5 mg tablet (Eliquis) 2.5 mg PO BID #180 tabs 01/31/23 epoetin kole 40,000 unit/mL 40,000 unit subcut .q2w 60 days #4 02/15/23 injection solution mL Over Night Pulse OX #1 ea 05/23/23 Oxygen Home #1 ea 05/23/23 lorazepam 0.5 mg tablet 0.25 - 0.5 mg (0.5 - 1 x 0.5 mg) 05/31/23 PO HS PRN anxiety/insomnia #30 tabs Results & Data (ED) Vital Signs Vital Signs - 24 hr 06/06/23 12:22 06/06/23 15:15 06/06/23 15:16 Temperature 36.9 C Temperature Source Temporal Artery Scan Pulse Rate 53 L 56 L Pulse Rate [Apical] 59 L Pulse Rate [Exercises] Pulse Rate [Recovery] Pulse Rate [Resting] Pulse Rhythm Regular Pulse Strength Normal Respiratory Rate 22 20 Respiratory Rate [Exercises] Respiratory Rate [Recovery] Respiratory Rate [Resting] Respiratory Effort / Characteristics Non-Labored Respiratory Depth Normal Respiratory Pattern Regular Blood Pressure 149/67 H Blood Pressure [Left Arm] 150/60 H Blood Pressure Mean 94 Blood Pressure Mean [Left Arm] 90 Blood Pressure Position Sitting Pulse Oximetry 92 93 Pulse Oximetry [Exercises] Pulse Oximetry [Recovery] Pulse Oximetry [Resting] Oxygen Delivery Method Nasal Cannula Nasal Cannula Oxygen Flow Rate 4 2 Sepsis Recent Fever Within 48 Hours No Sepsis New/Unexplained Change in Mental Status No Sepsis Action Taken by Nursing No Action Required Pulse Oximetry Post Tiitration 06/06/23 15:31 06/06/23 16:00 Temperature Temperature Source Pulse Rate Pulse Rate [Apical] Pulse Rate [Exercises] 71 Pulse Rate [Recovery] 64 Pulse Rate [Resting] 60 Pulse Rhythm Pulse Strength Respiratory Rate Respiratory Rate [Exercises] 24 Respiratory Rate [Recovery] 22 Respiratory Rate [Resting] 20 Respiratory Effort / Characteristics Respiratory Depth Respiratory Pattern Blood Pressure Blood Pressure [Left Arm] Blood Pressure Mean Blood Pressure Mean [Left Arm] Blood Pressure Position Pulse Oximetry 99 Pulse Oximetry [Exercises] 87 L Pulse Oximetry [Recovery] 89 L Pulse Oximetry [Resting] 89 L Oxygen Delivery Method Room Air Nasal Cannula Room Air Oxygen Flow Rate 4 Sepsis Recent Fever Within 48 Hours Sepsis New/Unexplained Change in Mental Status Sepsis Action Taken by Nursing Pulse Oximetry Post Tiitration 97 Home Medications Current Medication List: was personally reviewed by tx Laboratory Data Attestation: I reviewed the patient's lab results. 06/06/23 13:03 06/06/23 13:03 Lab Results 06/06/23 06/06/23 06/06/23 Range/Units 13:00 13:03 13:05 WBC 5.69 (4.8-10.8) K/ul RBC 4.01 L (4.20-5.40) M/uL Hgb 11.2 L (12.0-16.0) g/dl Hct 36.9 L (37.0-47.0) % MCV 92.0 (80.0-100.0) fL MCH 27.9 (25.0-34.0) pg MCHC 30.4 L (32.0-36.0) g/dL RDW Std Deviation 63.7 H (36.4-46.3) fL RDW Coeff of Alice 18.9 H (11.5-14.5) % Plt Count 253 (130-400) K/uL MPV 9.8 (9.4-12.4) fL Immature Gran % (Auto) 0.4 % Neut % (Auto) 71.4 % Lymph % (Auto) 16.2 % [place] % (Auto) 8.4 % Eos % (Auto) 2.5 % Baso % (Auto) 1.1 % Neut # (Auto) 4.07 (1.40-6.50) K/uL Lymph # (Auto) 0.92 L (1.20-3.40) K/uL [place] # (Auto) 0.48 (0.11-0.59) K/uL Eos # (Auto) 0.14 (0.00-0.50) K/uL Baso # (Auto) 0.06 (0.00-0.20) K/uL Immature Gran # (Auto) 0.02 (0.01-0.20) K/uL Sodium 138 (136-145) mmol/L Potassium 3.7 (3.5-5.1) mmol/L Chloride 103 (98-107) mmol/L Carbon Dioxide 27 (21-32) mmol/L Anion Gap 8 (3-11) BUN 49 H (6-23) mg/dl Creatinine 3.73 H (0.6-1.2) mg/dl Est Cr Clr Drug Dosing Not Reportable Est GFR ( Amer) 12.5 ml/min Est GFR (Non-Af Amer) 10.8 ml/min BUN/Creatinine Ratio 13.1 (10-20) Glucose 116 H (70-99(Fasting)) mg/dl Calcium 9.7 (8.6-10.3) mg/dl Total Bilirubin 0.8 (0.2-1.0) mg/dl AST 37 (13-39) U/L ALT 38 (7-52) U/L Alkaline Phosphatase 65 (34-104) U/L Troponin I High Sens 25.7 H (0-14) pg/ml Total Protein 7.0 (6.0-8.3) gm/dl Albumin 4.0 (3.4-5.0) gm/dl Globulin 3.0 (2.5-4.0) gm/dl Albumin/Globulin Ratio 1.3 (0.9-2) Lipase 34 (11-82) U/L Procalcitonin 0.05 (0-0.5) ng/ml Adenovirus (PCR) Not Detected (NotDetected) B. pertussis DNA (PCR) Not Detected (NotDetected) B.parapertussis DNA PCR Not Detected (NotDetected) C. pneumoniae DNA (PCR) Not Detected (NotDetected) Coronavirus OC43 (PCR) Not Detected (NotDetected) Coronavirus HKU1 (PCR) Not Detected (NotDetected) Coronavirus 229E (PCR) Not Detected (NotDetected) SARS-CoV-2 (PCR) NEGATIVE Not Detected (Negative) Coronavirus NL63 (PCR) Not Detected (NotDetected) Human Metapneumovir PCR Not Detected (NotDetected) Influenza Type A (PCR) Not Detected (NotDetected) Influenza Type B (PCR) Not Detected (NotDetected) M. pneumoniae (PCR) Not Detected (NotDetected) Parainfluenza 1 (PCR) Not Detected (NotDetected) Parainfluenza 2 (PCR) Not Detected (NotDetected) Parainfluenza 3 (PCR) Not Detected (NotDetected) Parainfluenza 4 (PCR) Not Detected (NotDetected) RSV (PCR) Not Detected (NotDetected) Entero/Rhino (PCR) Not Detected (NotDetected) 06/06/23 Range/Units 16:11 WBC (4.8-10.8) K/ul RBC (4.20-5.40) M/uL Hgb (12.0-16.0) g/dl Hct (37.0-47.0) % MCV (80.0-100.0) fL MCH (25.0-34.0) pg MCHC (32.0-36.0) g/dL RDW Std Deviation (36.4-46.3) fL RDW Coeff of Alice (11.5-14.5) % Plt Count (130-400) K/uL MPV (9.4-12.4) fL Immature Gran % (Auto) % Neut % (Auto) % Lymph % (Auto) % [place] % (Auto) % Eos % (Auto) % Baso % (Auto) % Neut # (Auto) (1.40-6.50) K/uL Lymph # (Auto) (1.20-3.40) K/uL [place] # (Auto) (0.11-0.59) K/uL Eos # (Auto) (0.00-0.50) K/uL Baso # (Auto) (0.00-0.20) K/uL Immature Gran # (Auto) (0.01-0.20) K/uL Sodium (136-145) mmol/L Potassium (3.5-5.1) mmol/L Chloride (98-107) mmol/L Carbon Dioxide (21-32) mmol/L Anion Gap (3-11) BUN (6-23) mg/dl Creatinine (0.6-1.2) mg/dl Est Cr Clr Drug Dosing Est GFR ( Amer) ml/min Est GFR (Non-Af Amer) ml/min BUN/Creatinine Ratio (10-20) Glucose (70-99(Fasting)) mg/dl Calcium (8.6-10.3) mg/dl Total Bilirubin (0.2-1.0) mg/dl AST (13-39) U/L ALT (7-52) U/L Alkaline Phosphatase (34-104) U/L Troponin I High Sens 29.9 H (0-14) pg/ml Total Protein (6.0-8.3) gm/dl Albumin (3.4-5.0) gm/dl Globulin (2.5-4.0) gm/dl Albumin/Globulin Ratio (0.9-2) Lipase (11-82) U/L Procalcitonin (0-0.5) ng/ml Adenovirus (PCR) (NotDetected) B. pertussis DNA (PCR) (NotDetected) B.parapertussis DNA PCR (NotDetected) C. pneumoniae DNA (PCR) (NotDetected) Coronavirus OC43 (PCR) (NotDetected) Coronavirus HKU1 (PCR) (NotDetected) Coronavirus 229E (PCR) (NotDetected) SARS-CoV-2 (PCR) (Negative) Coronavirus NL63 (PCR) (NotDetected) Human Metapneumovir PCR (NotDetected) Influenza Type A (PCR) (NotDetected) Influenza Type B (PCR) (NotDetected) M. pneumoniae (PCR) (NotDetected) Parainfluenza 1 (PCR) (NotDetected) Parainfluenza 2 (PCR) (NotDetected) Parainfluenza 3 (PCR) (NotDetected) Parainfluenza 4 (PCR) (NotDetected) RSV (PCR) (NotDetected) Entero/Rhino (PCR) (NotDetected) Administered Medications Budesonide (Budesonide 0.5 Mg/2 Ml Vial (Pulmicort)) 0.5 mg NEB BIDR [facility] Stop: 07/06/23 18:59 Last Admin: 06/06/23 20:35 Dose: Not Given Documented By: BWT Formoterol Fumarate (Formoterol 20 Mcg/2 Ml Vial) 20 mcg NEB BID NATHALIA Stop: 07/06/23 20:59 Last Admin: 06/06/23 20:35 Dose: 20 mcg Documented By: BWT Discontinued Medications Albuterol (Albut/Ipratrop 3mg/0.5mg Neb 3 Ml Vial) 3 ml NEB NOW STA; Protocol Stop: 06/06/23 17:40 Last Admin: 06/06/23 18:07 Dose: 3 ml Documented By: NASEEM Imaging Data Attestation: I personally reviewed and interpreted this imaging study as follows: My Impression: 1 view chest x-ray was obtained in the emergency department. My interpretation is bilateral pleural effusions, there is no free air, final report below. Radiologist's Impression: Chest X-Ray 06/06/23 12:31 XR chest 1V not portable CLINICAL HISTORY: Chest pain, nonspecific TECHNIQUE: Single frontal radiograph of the chest was obtained. Comparison: Comparison is made to chest radiographs 06/09/2023 FINDINGS: No lines and tubes are seen. Calcified aortic knob is seen. Reticular interstitial opacities are seen. No evidence of pleural effusion or pneumothorax. IMPRESSION: No acute chest disease. ACT 112: Negative or not required by law. Electronically signed by: Real Powell M.D. 06/06/2023 1:36 PM Discharge Plan Visit Data Chief Complaint: Shortness of Breath/Dyspnea Stated Complaint: SOB, ED Provider: Shamar Mccloud Discharge Problem: Pleural effusion, Hypoxia, Elevated troponin I level Patient Disposition: Being Evaluated by Hospitalist Discharge Instructions Interventions: ED Discharge Assessment Last Done: 06/06/23 19:44
--- NOTE | 2023-06-06 16:48 | Electrocardiogram Report ---
Test Reason : Blood Pressure : / mmHG Vent. Rate : 053 BPM Atrial Rate : 053 BPM P-R Int : 202 ms QRS Dur : 078 ms QT Int : 492 ms P-R-T Axes : 028 091 019 degrees QTc Int : 461 ms Poor data quality, interpretation may be adversely affected Sinus bradycardia Rightward axis Prolonged QT Diffuse Minor Nonspecific T wave abnormality Abnormal ECG When compared with ECG of 21-APR-2023 19:32, QT has shortened Confirmed by Danny Hinds ([id number]) on 06/06/2023 4:48:09 PM Referred By: Confirmed By:Danny Hinds
--- NOTE | 2023-06-06 16:58 | History & Physical Report ---
Date of Service June 06, 2023 Assessment & Plan (1) RIVAS (dyspnea on exertion): Plan: -Admit to med/tele on pulse oximetry -Coherently stable on 2L NC -At this time the exact etiology of her increased RIVAS/SOB is unclear but her differential includes viral URI, CHF, asthma/COPD exacerbation, and progression of her chronic lung disease -Patient's condition acutely progressed yesterday after a recently trip to the [facility], patient denies recently missed doses of diuretics or Eliquis -On exam the patient is moving very little air in the BL lower lung castillo with some expiratory wheezing -Her chest xray is not significantly changed since 05/30 on chest Xray S/P right thoracentesis, do not think she requires another at this time -Low suspicion for PE at this time as she has not missed a dose of her Eliquis recently, has been hemodynamically stable, and has been without pleuritic chest pain -Will obtain full respiratory biofire, BNP, and procal for further evaluation -Will give a STAT DuoNeb and monitor her response -Continue with BID PO lasix for now, if symptoms do not improve with DuoNeb and BNP is significantly elevated will convert to IV -Continue home breathing treatments -Incentive spirometry, flutter therapy, prn O2 to keep SpO2 between 89-92% -Will consult pulmonology to follow while admitted to see if her chronic respiratory status is progressing -If her initial workup is consistently with COPD exacerbation will add ant ibiotics and systemic glucocorticoids -Continue eliquis for DVT PPX -HH diet with 2gm sodium restriction and 1500 mL fluid restriction for now -Am CBC, BMP, Mag, PT/INR (2) Asthma-COPD overlap syndrome: Plan: -See RIVAS -Will convert home Budesonide-Formoterol to nebulized form in the acute period -Incentive spirometry, flutter therapy, prn O2 -Pulmonology consult (3) Elevated troponin I level: Plan: -Initial high sen trop elevated at 25, 2 hour repeat at 29 -Patient denies chest discomfort, no acute ST segment or T-wave changes noted on ECG -Likely related to demand -Will obtain an am high sen trop to ensure it does not continue to rise -Continue to monitor on tele (4) Wound of right lower extremity: Plan: -Patient has a large, chronic wound on the medial aspect of the right calf -Appears dry with intact eschar -Patient's brother states they have had it worked up in the past -Appears as though previous contusion may have developed into a chronic wound -Will obtain xray of the Right tib/fib to monitor for OM and consult wound care nurse for now -No signs or erythema/swelling to suggest cellulitis, will hold abx for now (5) Paroxysmal atrial fibrillation: Plan: -Stable -Continue metoprolol -Will continue Eliquis at this time as it does not appear that she has a large enough right pleural effusion to require thoracentesis at this time (6) Hypertension: Plan: -Stable -Recently had amlodipine DC'd due to ongoing hypotension -Continue metoprolol (7) CKD (chronic kidney disease): Plan: -Currently at baseline with Cr of 3.73 -Follows with Nephrology, has mature left BC AV fistula if needed -Avoid nephrotoxic agents -Monitor daily renal function Plan The patient was discussed with Dr. Singleton at the time of the admission History of Present Illness Chief Complaint: SOB, generalized weakness Primary Care Provider: Soledad Meier MD Martha is an 82-year-old female with a past medical history including HFpEF, mitral regurgitation, recurrent pleural effusions S/P right thoracentesis on 05/30, , CKD stage V, PAFib on Eliquis, anemia of CKD, hypercholesterolemia, asthma-COPD overlap syndrome, history of PE, and HTN who presented to the [facility] ED on 06/06 with complaints of SOB and generalized weakness. She placed herself on prn O2 at home but her family states that she was saturating at 76% on RA. She remained stable on RA at rest but would become significantly hypoxic with any exertion, she was otherwise stable. Labs were significant for an initial high sen trop of 25 with 2 hour repeat of 29. Chest xray was read as "no acute chest disease" but on review it appears that the patient continues to have signs of congestive failure without significant increase of recently drained pleural effusions. At the time of the exam the patient was sitting in bed in no acute distress with her brother sitting bedside, history was obtained from both. The patient had been doing well since her last thoracentesis on 05/30. She and her brother drove to the [facility] on 06/01 for evaluation of possible mitral valve replacement. She states that she continued to take all medications as prescribed, including BID lasix, despite the long car ride; they also deny the patient missing any doses of her Eliquis recently. Starting yesterday she developed acute onset of increased SOB, especially with exertion. Her brother explains that her SpO2 would fall into the 70's shortly after exertion on RA, but would quickly improve with rest and prn O2 she's has at home. She currently uses prn O2, but does not use it continuously. She denies recent fever, does note increased cough from baseline but this usually improves after she wakes and uses her normal breathing treatments. She currently feels as though her airways are tight, like she is having an exacerbation of her asthma/COPD. We had a long discussion regarding code status, at this time she wishes to be a full code with her children making decisions for her if she cannot make them herself. Please refer to Dr. Singleton's attestaion for any changes to the treatment plan Allergies Allergy/AdvReac Type Severity Reaction Status Date / Time Sulfa (Sulfonamide AdvReac Intermediate HEADACHE, Verified 06/06/23 16:24 Antibiotics) VERTIGO adhesive AdvReac skin tears Verified 06/06/23 16:27 Home Medications Medication Instructions Recorded Confirmed Type aspirin 81 mg tablet,delayed 81 mg PO HS 07/02/19 06/06/23 History release (Adult Low Dose Aspirin) meclizine 12.5 mg tablet 12.5 mg PO TID PRN dizziness #30 06/10/22 06/06/23 Rx tabs paroxetine HCl 40 mg tablet 40 mg PO HS 07/25/22 06/06/23 History sennosides 8.6 mg-docusate sodium 1 tab PO BID #60 tabs 08/19/22 06/06/23 Rx 50 mg tablet (Senokot-S) ferrous sulfate 325 mg (65 mg 325 mg PO QAM #90 tabs 10/04/22 06/06/23 Rx iron) tablet,delayed release metoprolol tartrate 25 mg tablet 12.5 mg (1/2 x 25 mg) PO BID #90 10/04/22 06/06/23 Rx tabs atorvastatin 20 mg tablet 20 mg PO HS #90 tabs 11/10/22 06/06/23 Rx albuterol sulfate 90 mcg/actuation 2 puff inhalation Q6H PRN 11/24/22 06/06/23 Rx aerosol inhaler Shortness Of Breath Or Wheezing #18 grams budesonide-formoterol HFA 160 2 puff inhalation BID #10.2 grams 11/24/22 06/06/23 Rx mcg-4.5 mcg/actuation aerosol inhaler (Symbicort) ipratropium 0.5 mg-albuterol 3 mg 3 ml inhalation Q2H PRN shortness 11/24/22 06/06/23 Rx (2.5 mg base)/3 mL nebulization of breath or wheezing #180 mL soln calcitriol 0.5 mcg capsule 0.5 mcg PO 3XWK #45 caps 12/02/22 06/06/23 Rx cyanocobalamin (vitamin B-12) 1,000 mcg PO DAILY #90 caps 12/22/22 06/06/23 Rx 1,000 mcg capsule apixaban 2.5 mg tablet (Eliquis) 2.5 mg PO BID #180 tabs 01/31/23 06/06/23 Rx epoetin kole 40,000 unit/mL 40,000 unit subcut .q2w 60 days #4 02/15/23 06/06/23 Rx injection solution mL fluticasone propionate 50 2 spray intranasal DAILY PRN 04/21/23 06/06/23 History mcg/actuation nasal allergies spray,suspension (Allergy Relief (fluticasone)) furosemide 20 mg tablet 20 mg PO BID 04/21/23 06/06/23 History polyethylene glycol 3350 17 gram 17 g PO DAILY PRN Constipation 04/21/23 06/06/23 History oral powder packet (Miralax) amiodarone 200 mg tablet 200 mg PO QPM 05/12/23 06/06/23 History Over Night Pulse OX #1 ea 05/23/23 05/31/23 Rx Oxygen Home #1 ea 05/23/23 05/31/23 Rx lorazepam 0.5 mg tablet 0.25 - 0.5 mg (0.5 - 1 x 0.5 mg) 05/31/23 06/06/23 Rx PO HS PRN anxiety/insomnia #30 tabs sodium chloride 0.9 % solution 5 ml miscellaneous BID 06/06/23 06/06/23 History (Saline Wound Wash) Past Med/Surg History Medical History COPD (chronic obstructive pulmonary disease) Rheumatoid arthritis Slow to wake up after anesthesia happened once time Hx of vertigo "none for quite some time, occurred when taking sulfa for her bladder problems" Mitral regurgitation Acute respiratory failure with hypoxia hx-hospitalized 04/21/23 @[facility] Restrictive lung disease daily inh, inh and neb prn Paroxysmal atrial fibrillation Pleural effusion 07/2022, pt unsure about this? Chronic kidney disease, stage V no dialysis; f/u dr. tinsley Acute on chronic diastolic CHF (congestive heart failure) recently hospitalized @[facility] on 04/21/23 Chronic anticoagulation Atrial fibrillation with rapid ventricular response currently on eliquis; f/u dr. jose, 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 Surgical History History of esophagogastroduodenoscopy (EGD) Hx of colonoscopy Hx of vein stripping Hx of hysterectomy Family History Mother Blood clot in vein Father Myocardial infarction Sister Blood clot in vein Breast cancer Aunt Blood clot in vein Son Prostate cancer Denies family history of Ovarian cancer Colorectal cancer Social History Smoking Status: Never smoker Second Hand Exposure: Yes (hx growing up); Do You Dip or Chew Tobacco: No; Hx Alcohol Use: No Hx Substance Use: No Preferred Language: Swedish Communication Ability: Effective Visual Impairment: Limited Hearing Ability: Use of Hearing Aid Quality Control Supervisor Required: No Beliefs That Will Affect Care: None marital status: / Current Living Situation: Alone Current Living Situation Comment: family assists w/ driving to drs appts and getting groceries current occupational status: retired 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 How many Children do You have: 3 Feels Safe at Home: Yes Childhood Exposure to Second-Hand Smoke: Yes Diet: regular caffeine: No Dental Care, Regularly: Yes Physical Activity Frequency: Does not Exercise Seatbelt Use: always Sunscreen Use: Yes Assistive Devices: Denture - Upper and Hearing Aid - Bilateral Physical Exam Physical Exam: Physical Exam: General: In no acute distress, stated age, chronically ill appearing but non- toxic HEENT: Normocephalic, atraumatic, no scleral icterus, pupils around round, symmetrical, and reactive to light, moist mucus membranes, negative JVD, trachea midline, no thyromegaly Chest/Pulm: No respiratory distress, symmetrical chest expansion, decreased breathing sounds in the BL lower lung castillo with mild expiratory wheezing in the upper lung castillo Cardiac: RRR, 4/6 systolic murmur noted Abdomen: Negative for ascites and bruising, normoactive bowel sounds, soft, non-tender to palpation throughout Musculoskeletal: Symmetrical and without signs of acute trauma, upper and lower extremities with full ROM, no atrophy, spasticity, or flaccidity Extremities: Radial, dorsalis pedis, and posterior tibial pulses are intact and symmetrical, no edema noted in the BL LE's Skin: patient with chronic right LE wound on the medial aspect of the right calf without acute signs of drainage Neuro: Alert and oriented to person, place, month, year, and president, no focal defects, no tremors noted Psych: No acute distress, calm and cooperative during the exam Results & Data Results & Data Vital Signs (Past 12 Hours) Vital Signs Temp Pulse Pulse Pulse Pulse Resp Resp 06/06/23 16:00 71 64 60 24 06/06/23 15:31 06/06/23 15:16 56 L 06/06/23 12:22 36.9 C 53 L 22 Resp Resp BP Pulse Ox Pulse Ox Pulse Ox Pulse Ox 06/06/23 16:00 22 20 87 L 89 L 89 L 06/06/23 15:31 99 06/06/23 15:16 06/06/23 12:22 149/67 H 92 O2 Del Method O2 Flow Rate 06/06/23 16:00 Room Air 06/06/23 15:31 Room Air, Nasal Cannula 4 06/06/23 15:16 06/06/23 12:22 Nasal Cannula 4 Laboratory Results Abnormal lab results 06/06/23 06/06/23 Range/Units 13:03 16:11 RBC 4.01 L (4.20-5.40) M/uL Hgb 11.2 L (12.0-16.0) g/dl Hct 36.9 L (37.0-47.0) % MCHC 30.4 L (32.0-36.0) g/dL RDW Std Deviation 63.7 H (36.4-46.3) fL RDW Coeff of Alice 18.9 H (11.5-14.5) % Lymph # (Auto) 0.92 L (1.20-3.40) K/uL BUN 49 H (6-23) mg/dl Creatinine 3.73 H (0.6-1.2) mg/dl Glucose 116 H (70-99(Fasting)) mg/dl Troponin I High Sens 25.7 H 29.9 H (0-14) pg/ml Diagnostic Findings Chest X-Ray 06/06/23 12:31 XR chest 1V not portable CLINICAL HISTORY: Chest pain, nonspecific TECHNIQUE: Single frontal radiograph of the chest was obtained. Comparison: Comparison is made to chest radiographs 06/09/2023 FINDINGS: No lines and tubes are seen. Calcified aortic knob is seen. Reticular interstitial opacities are seen. No evidence of pleural effusion or pneumothorax. IMPRESSION: No acute chest disease. ACT 112: Negative or not required by law. Electronically signed by: Real Powell M.D. 06/06/2023 1:36 PM ECG Additional Comments: Poor data quality, interpretation may be adversely affected Sinus bradycardia Rightward axis Prolonged QT Diffuse Minor Nonspecific T wave abnormality Abnormal ECG When compared with ECG of 21-APR-2023 19:32, QT has shortened Confirmed by Danny Hinds ([id number]) on 06/06/2023 4:48:09 PM Code Status & VTE Plan Code Status Full code VTE Prophylaxis Plan VTE Prophylaxis will be ordered: Yes Supervising Physician Co-Signing Physician Notes Patient seen and examined, chart reviewed, case discussed with Kevin Lester PA-C and I agree with the assessment and plan as above except as otherwise noted Labs and images reviewed 82-year-old female who presents with shortness of breath, dyspnea, and hypoxia. She has a history of recurrent pleural effusions, CKD, A-fib on Eliquis, hyperlipidemia, and asthmaCOPD overlap. Chest x-ray is without pulmonary edema, BNP is elevated. On exam patient is wheezy more consistent with COPD exacerbation and improved significantly following nebulizer treatment. On auscultation no rales are present. Prior BNP ranges around [id number] at baseline, this is elevated 2643 on admission. Minimally elevated troponin at which has been trended x3. Given history of CKD without overt volume overload on exam, will continue home diuresis with COPDasthma treatment as above rather than aggressive diuresis and follow clinically. Agree with assessment and management above PG Care Time/CCT Total # of Minutes Spent Total Time Spent with Patient: Total time spent is greater than 50% in coordination of care (as documented) at patient's floor/unit and/or counseling patient: Coding [place] [address] INT INP/OBS CARE 2/55MIN Patient Type Established Medical Decision Making Moderate Complexity Diagnoses RIVAS (dyspnea on exertion) R06.09 Asthma-COPD overlap syndrome J44.9 Elevated troponin I level R79.89 Wound of right lower extremity S81.801A Paroxysmal atrial fibrillation I48.0 Hypertension I10 CKD (chronic kidney disease) N18.9
[2023-06-06] MEDS ORDERED: ALBUT/IPRATROP 3MG/0.5MG NEB 3 ML VIAL NEB STA (17:39)
[2023-06-06 18:09] LABS: Adenovirus PCR Not Detected (NotDetected); Bordetella parapertussis PCR Not Detected (NotDetected); Bordetella pertussis PCR Not Detected (NotDetected); Chlamydia pneumoniae PCR Not Detected (NotDetected); Coronavirus 229E PCR Not Detected (NotDetected); Coronavirus CoV-2 (COVID19)PCR Not Detected (NotDetected); Coronavirus HKU1 PCR Not Detected (NotDetected); Coronavirus NL63 PCR Not Detected (NotDetected); Coronavirus OC43PCR Not Detected (NotDetected); Human Metapneumovirus PCR Not Detected (NotDetected); Influenza A PCR Not Detected (NotDetected); Influenza B PCR Not Detected (NotDetected); Mycoplasma pneumoniae PCR Not Detected (NotDetected); Parainfluenza Virus 1 PCR Not Detected (NotDetected); Parainfluenza Virus 2 PCR Not Detected (NotDetected); Parainfluenza Virus 3 PCR Not Detected (NotDetected); Parainfluenza Virus 4 PCR Not Detected (NotDetected); Respiratory Syncytial VirusPCR Not Detected (NotDetected); Rhinovirus/Enterovirus PCR Not Detected (NotDetected)
--- NOTE | 2023-06-06 18:51 | XRay Report ---
XR tibia fibula RT 2V HISTORY: 82 years-old Female chronic right LE wound, monitor for OM chronic wound of the right lower leg COMPARISON: None TECHNIQUE: 2 views of the right tibia and fibula FINDINGS: Arterial calcifications. ORIF hardware of the ankle. Osteoarthritis of the knee and ankle. No acute f racture, dislocation or opaque foreign body. No osseous erosions. IMPRESSION: No acute osseous abnormality. ACT 112: Negative or not required by law. The above report was generated using voice recognition software. It may contain grammatical, syntax o r spelling errors. Electronically signed by: Melo Muse M.D. 06/06/2023 6:50 PM
[2023-06-06] MEDS ORDERED: FUROSEMIDE INJ 20 MG/2 ML VIAL IV SCH (19:30)
[2023-06-06] MEDS ORDERED: LORazepam 0.5 MG TAB PO PRN (19:43)
[2023-06-06] MEDS ORDERED: ALBUT/IPRATROP 3MG/0.5MG NEB 3 ML VIAL NEB PRN (19:43)
[2023-06-06] MEDS ORDERED: Patient's HEIGHT &/or WEIGHT Needed SCH (20:00)
[2023-06-06] MEDS: FORMOTEROL 20 MCG/2 ML VIAL NEB SCH (20:35)
[2023-06-06] MEDS: BUDESONIDE 0.5 MG/2 ML VIAL (PULMICORT) NEB SCH (20:35)
[2023-06-06] MEDS: PARoxetine HCL 20 MG TAB PO SCH (22:51)
[2023-06-06] MEDS: APIXABAN 2.5 MG TAB PO SCH (22:51)
[2023-06-06] MEDS: ATORVASTATIN 20 MG TAB PO SCH (22:51)
[2023-06-06] MEDS: FUROSEMIDE 20 MG TAB PO SCH (22:51)
[2023-06-06] MEDS: ASPIRIN 81 MG ECTAB PO SCH (22:52)
[2023-06-06] MEDS: AMIODARONE 200 MG TAB PO SCH (22:52)
[2023-06-06] MEDS: METOPROLOL TARTRATE 25 MG TAB PO SCH (22:52)
[2023-06-06] MEDS: CALCITRIOL 0.25 MCG CAPSULE PO SCH (22:52)
[2023-06-07] MEDS: BUDESONIDE 0.5 MG/2 ML VIAL (PULMICORT) NEB SCH ×3 (07:03→19:52)
[2023-06-07] MEDS: FORMOTEROL 20 MCG/2 ML VIAL NEB SCH ×2 (07:03→19:52)
[2023-06-07 07:22] LABS: Basophils # (auto) 0.05 K/uL (0.00-0.20); Basophils % (auto) 1.1 %; Eosinophils % (auto) 4.4 %; Hemoglobin 10.3 g/dl (12.0-16.0); Immature Granulocytes # (auto) 0.02 K/uL (0.01-0.20); Immature Granulocytes % (auto) 0.4 %; Lymphocytes # (auto) 0.92 K/uL (1.20-3.40); Mean Corpuscular Hemoglobin 27.9 pg (25.0-34.0); Mean Corpuscular Hgb Conc 30.3 g/dL (32.0-36.0); Mean Corpuscular Volume 92.1 fL (80.0-100.0); Mean Platelet Volume 10.3 fL (9.4-12.4); Monocytes # (auto) 0.56 K/uL (0.11-0.59); Monocytes % (auto) 12.2 %; Neutrophils # (auto) 2.84 K/uL (1.40-6.50); Neutrophils % (auto) 61.9 %; Platelet Count 226 K/uL (130-400); RDW Coefficient of Variation 18.6 % (11.5-14.5); RDW Standard Deviation 63.5 fL (36.4-46.3); Red Blood Count 3.69 M/uL (4.20-5.40); White Blood Count 4.59 K/ul (4.8-10.8)
[2023-06-07 08:00] LABS: Troponin I High Sensitivity 26.2 pg/ml (0-14)
[2023-06-07 08:33] LABS: INR 1.1 (0.9-1.1); Prothrombin Time 11.8 Seconds (9.0-12.0)
[2023-06-07 08:34] LABS: Calcium 9.3 mg/dl (8.6-10.3); Magnesium 2.2 mg/dl (1.7-2.4); Potassium 3.7 mmol/L (3.5-5.1)
[2023-06-07 08:39] LABS: BUN Creatinine Ratio 12.6 (10-20); Creatinine Clr Calc Pharmacy 10.8 ml/min; Est GFR (African American) 13.2 ml/min; Est GFR (Non-African American) 11.4 ml/min
[2023-06-07] MEDS: FERROUS SULFATE 325 MG TAB PO SCH (09:25)
[2023-06-07] MEDS: FUROSEMIDE 20 MG TAB PO SCH ×2 (09:26→21:17)
[2023-06-07] MEDS: METOPROLOL TARTRATE 25 MG TAB PO SCH ×2 (09:26→21:17)
--- NOTE | 2023-06-07 11:10 | Pulmonary Consultation ---
Date of Consultation June 07, 2023 Assessment & Plan (1) Hypoxia: (2) RIVAS (dyspnea on exertion): (3) Pleural effusion: (4) Restrictive airway disease: (5) Tracheomalacia: (6) Multiple pulmonary nodules: (7) Asthma-COPD overlap syndrome: Plan IMPRESSION: 82-year-old female with an extensive past medical history who presents with complaints of worsening dyspnea on exertion from her baseline. RECOMMENDATIONS: 1. Dyspnea on exertion - Again, multifactorial in the frail-appearing 82-year-old kyphotic female with underlying cardiac disease and asthma COPD overlap syndrome in the setting of recurrent pleural effusions. Acute on chronic episode likely related to reaccumulation of RIGHT-sided pleural effusion. This was recently drained on 05/30 by interventional radiology. Certainly, the patient may benefit from drainage of the effusion again. Unfortunately, this represents recurrent issue and is difficult to coordinate as the patient is on Eliquis and continues to have to be off her medication for at least 48 hours prior to draining. Certainly, consideration for indwelling catheter could be discussed, however treatment of the underlying cause of the recurrent effusion seems like the most reasonable option would be forward at this time. Unfortunately, it appears as though her renal function continues to decline and question degree of valvulopathy contributing as well. That being said, in the interim, we can certainly remove the fluid if she continues with worsening symptoms. Otherwise, would defer to nephrology and cardiology for ongoing management of her recurrent effusion related to volume status. Plan to hold Eliquis for now. We will reassess effusion tomorrow and possibly drain tomorrow versus depending on respiratory status. 2. Hypoxia - Again, multifactorial, but with worsening in the setting of return of RIGHT-sided effusion. Supplemental oxygen as needed. 3. Pleural effusion - Unremarkable pleural studies during previous thoracenteses. Leaning towards heart failure and volume status as likely cause. Again, likely requires draining given symptoms at this time. 4. Restrictive airway disease - Noted on prior pulmonary function testing. Likely related to reaccumulation of pleural fluid. 5. Tracheomalacia - Appreciated during previous hospitalization with intubation. Patient did require positive pressure ventilation techniques at that time to help stent open airway. Would advocate for in lab sleep study given her fragile respiratory and cardiac state. This would assess for the need for positive airway pressure which certainly could be beneficial in a patient with underlying asthma COPD overlap syndrome as well as recurrent pleural effusions. 6. Multiple pulmonary nodules - They have appeared stable in the past. 7. Hypoxia - Again, likely secondary to above. Patient will require supplemental oxygen for now. This can be reassessed as we gain better control over her recurrent effusions. Thank you for allowing us to precipitate the care of this pleasant patient. We will be happy to follow along while inpatient. History of Present Illness Reason for Consultation: SOB/RIVAS, hx COPD/asthma overlap Requesting Physician: Kevin Lester PA-C Attending Physician: Adolfo Barnes MD History of Present Illness Patient is an 82-year-old female with a significant past medical history of asthma COPD overlap syndrome, recurrent pleural effusion, restrictive lung dis ease secondary to effusion, exertional dyspnea, pulmonary hypertension, history of pulmonary embolism currently anticoagulated on Eliquis, chronic cough, and multiple pulmonary nodules who presents to the hospital with worsening shortness of breath at her baseline. The patient states that she had been appreciating increasing shortness of breath over the last few days. She was seen in our clinic recently and referred for thoracentesis which was performed and removed 1300 mL of serosanguineous fluid. The patient had done well soon after, but reports that her shortness of breath had returned. In the interim from her last visit, she had an appointment with the [facility]. She is currently awaiting their evaluation recommendation regarding possible intervention on her cardiac valves. Otherwise, the patient reports that her worsening dyspnea on exertion is what prompted her to come back to the hospital. Initially, she reports that she directed her family to contact the outpatient setting, however she was brought to the emergency department instead. She offers no new complaints from prior visits. Allergies Allergy/AdvReac Type Severity Reaction Status Date / Time Sulfa (Sulfonamide AdvReac Intermediate HEADACHE, Verified 06/06/23 16:24 Antibiotics) VERTIGO adhesive AdvReac skin tears Verified 06/06/23 16:27 Home Medications Medication Instructions Recorded Confirmed Type aspirin 81 mg tablet,delayed 81 mg PO HS 07/02/19 06/06/23 History release (Adult Low Dose Aspirin) meclizine 12.5 mg tablet 12.5 mg PO TID PRN dizziness #30 06/10/22 06/06/23 Rx tabs paroxetine HCl 40 mg tablet 40 mg PO HS 07/25/22 06/06/23 History sennosides 8.6 mg-docusate sodium 1 tab PO BID #60 tabs 08/19/22 06/06/23 Rx 50 mg tablet (Senokot-S) ferrous sulfate 325 mg (65 mg 325 mg PO QAM #90 tabs 10/04/22 06/06/23 Rx iron) tablet,delayed release metoprolol tartrate 25 mg tablet 12.5 mg (1/2 x 25 mg) PO BID #90 10/04/22 06/06/23 Rx tabs atorvastatin 20 mg tablet 20 mg PO HS #90 tabs 11/10/22 06/06/23 Rx albuterol sulfate 90 mcg/actuation 2 puff inhalation Q6H PRN 11/24/22 06/06/23 Rx aerosol inhaler Shortness Of Breath Or Wheezing #18 grams budesonide-formoterol HFA 160 2 puff inhalation BID #10.2 grams 11/24/22 06/06/23 Rx mcg-4.5 mcg/actuation aerosol inhaler (Symbicort) ipratropium 0.5 mg-albuterol 3 mg 3 ml inhalation Q2H PRN shortness 11/24/22 06/06/23 Rx (2.5 mg base)/3 mL nebulization of breath or wheezing #180 mL soln calcitriol 0.5 mcg capsule 0.5 mcg PO 3XWK #45 caps 12/02/22 06/06/23 Rx cyanocobalamin (vitamin B-12) 1,000 mcg PO DAILY #90 caps 12/22/22 06/06/23 Rx 1,000 mcg capsule apixaban 2.5 mg tablet (Eliquis) 2.5 mg PO BID #180 tabs 01/31/23 06/06/23 Rx epoetin kole 40,000 unit/mL 40,000 unit subcut .q2w 60 days #4 02/15/23 06/06/23 Rx injection solution mL fluticasone propionate 50 2 spray intranasal DAILY PRN 04/21/23 06/06/23 History mcg/actuation nasal allergies spray,suspension (Allergy Relief (fluticasone)) furosemide 20 mg tablet 20 mg PO BID 04/21/23 06/06/23 History polyethylene glycol 3350 17 gram 17 g PO DAILY PRN Constipation 04/21/23 06/06/23 History oral powder packet (Miralax) amiodarone 200 mg tablet 200 mg PO QPM 05/12/23 06/06/23 History Over Night Pulse OX #1 ea 05/23/23 05/31/23 Rx Oxygen Home #1 ea 05/23/23 05/31/23 Rx lorazepam 0.5 mg tablet 0.25 - 0.5 mg (0.5 - 1 x 0.5 mg) 05/31/23 06/06/23 Rx PO HS PRN anxiety/insomnia #30 tabs sodium chloride 0.9 % solution 5 ml miscellaneous BID 06/06/23 06/06/23 History (Saline Wound Wash) Patient History Medical History COPD (chronic obstructive pulmonary disease) Rheumatoid arthritis Slow to wake up after anesthesia happened once time Hx of vertigo "none for quite some time, occurred when taking sulfa for her bladder problems" Mitral regurgitation Acute respiratory failure with hypoxia hx-hospitalized 04/21/23 @[facility] Restrictive lung disease daily inh, inh and neb prn Paroxysmal atrial fibrillation Pleural effusion 07/2022, pt unsure about this? Chronic kidney disease, stage V no dialysis; f/u dr. tinsley Acute on chronic diastolic CHF (congestive heart failure) recently hospitalized @[facility] on 04/21/23 Chronic anticoagulation Atrial fibrillation with rapid ventricular response currently on eliquis; f/u dr. 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 Surgical History History of esophagogastroduodenoscopy (EGD) Hx of colonoscopy Hx of vein stripping Hx of hysterectomy Family History Mother Blood clot in vein Father Myocardial infarction Sister Blood clot in vein Breast cancer Aunt Blood clot in vein Son Prostate cancer Denies family history of Ovarian cancer Colorectal cancer Social History Smoking Status: Never smoker Second Hand Exposure: Yes (hx growing up); Do You Dip or Chew Tobacco: No; Hx Alcohol Use: No Hx Substance Use: No Preferred Language: Georgian Communication Ability: Effective Visual Impairment: Limited Hearing Ability: Use of Hearing Aid 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 Required: Yes Beliefs That Will Affect Care: None marital status: / Current Living Situation: Family Current Living Situation Comment: family assists w/ driving to drs appts and getting groceries current occupational status: retired 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 All else were negative. Physical Exam Physical Exam: VITAL SIGNS - Vital signs and nursing notes were reviewed. GENERAL - 82-year-old female appearing her stated age who is in no acute distress. Communicates well with provider and answers questions appropriately. SKIN - Without rashes or lesions. NOSE - Midline and without cyanosis. MOUTH/OROPHARYNX - Without perioral cyanosis. NECK - Neck with FROM. LUNGS - Auscultation reveals decreased breath sounds at the RIGHT sided lung base. No wheezes or rales noted. CARDIAC - RRR with S1/S2. No murmur, rubs, or gallops appreciated. EXTREMITIES - Nail clubbing not present. No peripheral cyanosis. No pretibial edema present. +3/5 radial palpated throughout. PSYCH - A&Ox3 and cooperates fully with examiner. Pt is very pleasant and interacts well with examiner. Results & Data Results & Data Vital Signs (Past 12 Hours) Vital Signs Temp Pulse Pulse Resp BP Pulse Ox O2 Del Method 06/07/23 08:00 36.6 C 54 L 20 142/60 H 93 Nasal Cannula 06/07/23 07:09 54 L 06/07/23 07:05 54 L 12 100 Nasal Cannula 06/07/23 05:36 Nasal Cannula 06/07/23 03:02 36.4 C L 56 L 24 139/88 98 Nasal Cannula 06/06/23 23:24 94 H 24 154/74 H 94 Nasal Cannula O2 Flow Rate 06/07/23 08:00 4 06/07/23 07:09 06/07/23 07:05 3 06/07/23 05:36 4 06/07/23 03:02 4 06/06/23 23:24 2 PG Care Time/CCT Total # of Minutes Spent Total Time Spent with Patient: Total time spent is greater than 50% in coordination of care (as documented) at patient's floor/unit and/or counseling patient: Coding Level of Care Code 29722 INT INP/OBS CARE 3/75MIN Diagnoses Hypoxia R09.02 RIVAS (dyspnea on exertion) R06.09 Pleural effusion J90 Restrictive airway disease J98.4 Tracheomalacia J39.8 Multiple pulmonary nodules R91.8 Asthma-COPD overlap syndrome J44.9
[2023-06-07] MEDS: APIXABAN 2.5 MG TAB PO SCH (11:56)
--- NOTE | 2023-06-07 14:37 | Hospitalist Progress Note ---
Date of Service June 07, 2023 Assessment & Plan (1) RIVAS (dyspnea on exertion): Plan: -Most likley due to fluid overload from acute CHF exacerbation and pleural effusion -Reduced air entry on asucultation -Her chest xray is not significantly changed since 05/30 on chest Xray S/P right thoracentesis, but still some pleural effusion -Low suspicion for PE at this time as she has not missed a dose of her Eliquis recently, has been hemodynamically stable, and has been without pleuritic chest pain -Biofire is negative -BNP 2600, up from 900 last month -Continue with BID PO lasix for now, will be wary of renal function, so will consult nephrology -Monitor I/O, daily weights -Continue eliquis for DVT PPX -HH diet with 2gm sodium restriction and 1500 mL fluid restriction for now (2) Asthma-COPD overlap syndrome: Plan: -See RIVAS -Will convert home Budesonide-Formoterol to nebulized form in the acute period -Incentive spirometry, flutter therapy, prn O2 -Pulmonology consult (3) Elevated troponin I level: Plan: -Initial high sen trop elevated at 25, 2 hour repeat at 29 -Patient denies chest discomfort, no acute ST segment or T-wave changes noted on ECG -Likely related to demand -Will obtain an am high sen trop to ensure it does not continue to rise -Continue to monitor on tele (4) Wound of right lower extremity: Plan: -Patient has a large, chronic wound on the medial aspect of the right calf -Appears dry with intact eschar -Patient's brother states they have had it worked up in the past -Appears as though previous contusion may have developed into a chronic wound -Will obtain xray of the Right tib/fib to monitor for OM and consult wound care nurse for now -No signs or erythema/swelling to suggest cellulitis, will hold abx for now (5) Paroxysmal atrial fibrillation: Plan: -Stable -Continue metoprolol -Will continue Eliquis at this time as it does not appear that she has a large enough right pleural effusion to require thoracentesis at this time (6) Hypertension: Plan: -Stable -Recently had amlodipine DC'd due to ongoing hypotension -Continue metoprolol (7) CKD (chronic kidney disease): Plan: -Currently at baseline with Cr of 3.73 -Follows with Nephrology, has mature left BC AV fistula if needed -Avoid nephrotoxic agents -Monitor daily renal function (8) Heart failure with preserved ejection fraction: Plan: Follows up with heart failure clinic outpatient Monitor I/O, daily weight Plan continue to monitor Admission and Anticipated Discharge Date Admission Date: June 06, 2023 Subjective patient seen and examined, says her SOB is a little better Review of Systems Review of Systems: All systems reviewed are negative, apart from the ones contained in the history. Physical Exam Physical Exam: The patient is awake, alert and oriented 3, well developed and well nourished, normocephalic and atraumatic, lying in bed and in no acute distress. HEENT--PERRL, EOMI, mucous membranes and oropharynx mildly dry Neck--supple. No JVD. No bruits. Thyroid normal, trachea midline, no adenopathy. Heart--normal S1 and S2. Systolic murmurs, rubs or gallops. Lungs--Reduced air entry on ausculataion Abdomen--normal bowel sounds and soft. Mild epigastric and left sided abdominal pain Extremities--no cyanosis or clubbing. No edema. Dermatologic--normal skin turgor, normal color, no abnormal lymph nodes, no rash. Neurologic--cranial nerves II through XII grossly intact. Rheumatologic--normal range of motion. Psychiatric--normal affect. Results & Data Results & Data Vital Signs (Past 12 Hours) Vital Signs Temp Pulse Pulse Resp BP Pulse Ox O2 Del Method 06/07/23 12:06 Nasal Cannula 06/07/23 12:06 97.9 F 54 L 20 142/60 H 93 Nasal Cannula 06/07/23 12:00 98.1 F 56 L 19 141/85 H 92 Nasal Cannula 06/07/23 08:00 97.9 F 54 L 20 142/60 H 93 Nasal Cannula 06/07/23 07:09 54 L 06/07/23 07:05 54 L 12 100 Nasal Cannula 06/07/23 05:36 Nasal Cannula 06/07/23 03:02 97.5 F L 56 L 24 139/88 98 Nasal Cannula O2 Flow Rate 06/07/23 12:06 06/07/23 12:06 06/07/23 12:00 2 06/07/23 08:00 4 06/07/23 07:09 06/07/23 07:05 3 06/07/23 05:36 4 06/07/23 03:02 4 PG Care Time/CCT Total # of Minutes Spent Total Time Spent with Patient: Total time spent is greater than 50% in coordination of care (as documented) at patient's floor/unit and/or counseling patient: Coding Level of Care Code 38832 SUB INP/OBS CARE 2/35MIN Diagnoses RIVAS (dyspnea on exertion) R06.09 Asthma-COPD overlap syndrome J44.9 Elevated troponin I level R79.89 Wound of right lower extremity S81.801A Paroxysmal atrial fibrillation I48.0 Hypertension I10 CKD (chronic kidney disease) N18.9 Heart failure with preserved ejection fraction I50.30 Time Spent (min) 35
[2023-06-07] MEDS: ACETAMINOPHEN 325 MG TAB PO PRN (16:27)
[2023-06-07] MEDS ORDERED: EPOETIN ALFA 40,000 UNITS/ML VIAL SQ ONE (17:06)
[2023-06-07] MEDS: ASPIRIN 81 MG ECTAB PO SCH (21:16)
[2023-06-07] MEDS: AMIODARONE 200 MG TAB PO SCH (21:16)
[2023-06-07] MEDS: ATORVASTATIN 20 MG TAB PO SCH (21:17)
[2023-06-07] MEDS: PARoxetine HCL 20 MG TAB PO SCH (21:17)
[2023-06-08 06:25] LABS: Basophils # (auto) 0.05 K/uL (0.00-0.20); Basophils % (auto) 1.1 %; Eosinophils # (auto) 0.25 K/uL (0.00-0.50); Eosinophils % (auto) 5.5 %; Hematocrit (blood only) 30.4 % (37.0-47.0); Hemoglobin 9.5 g/dl (12.0-16.0); Immature Granulocytes # (auto) 0.01 K/uL (0.01-0.20); Immature Granulocytes % (auto) 0.2 %; Lymphocytes # (auto) 1.06 K/uL (1.20-3.40); Lymphocytes % (auto) 23.4 %; Mean Corpuscular Hemoglobin 28.1 pg (25.0-34.0); Mean Corpuscular Hgb Conc 31.3 g/dL (32.0-36.0); Mean Corpuscular Volume 89.9 fL (80.0-100.0); Mean Platelet Volume 9.9 fL (9.4-12.4); Monocytes # (auto) 0.62 K/uL (0.11-0.59); Monocytes % (auto) 13.7 %; Neutrophils # (auto) 2.54 K/uL (1.40-6.50); Neutrophils % (auto) 56.1 %; Platelet Count 212 K/uL (130-400); RDW Coefficient of Variation 18.9 % (11.5-14.5); RDW Standard Deviation 62.5 fL (36.4-46.3); Red Blood Count 3.38 M/uL (4.20-5.40); White Blood Count 4.53 K/ul (4.8-10.8)
[2023-06-08 06:43] LABS: BUN Creatinine Ratio 13.5 (10-20); Calcium 9.2 mg/dl (8.6-10.3); Creatinine Clr Calc Pharmacy 11.4 ml/min; Est GFR (Non-African American) 12.1 ml/min; Magnesium 2.2 mg/dl (1.7-2.4); Potassium 3.6 mmol/L (3.5-5.1)
[2023-06-08 06:45] LABS: INR 1.1 (0.9-1.1); Prothrombin Time 11.5 Seconds (9.0-12.0)
[2023-06-08] MEDS: FORMOTEROL 20 MCG/2 ML VIAL NEB SCH ×2 (07:12→17:55)
[2023-06-08] MEDS: FUROSEMIDE 20 MG TAB PO SCH ×2 (08:20→21:02)
[2023-06-08] MEDS: FERROUS SULFATE 325 MG TAB PO SCH (08:20)
--- NOTE | 2023-06-08 08:20 | Pulmonology Progress Note ---
Date of Service June 08, 2023 Assessment & Plan (1) Hypoxia: (2) RIVAS (dyspnea on exertion): (3) Pleural effusion: (4) Restrictive airway disease: (5) Tracheomalacia: (6) Multiple pulmonary nodules: (7) Asthma-COPD overlap syndrome: Plan IMPRESSION: 82-year-old female with an extensive past medical history who presents with complaints of worsening dyspnea on exertion from her baseline. RECOMMENDATIONS: 1. Dyspnea on exertion - Again, multifactorial in the frail-appearing 82-year-old kyphotic female with underlying cardiac disease and asthma COPD overlap syndrome in the setting of recurrent pleural effusions. Acute on chronic episode likely related to reaccumulation of RIGHT-sided pleural effusion. This was recently drained on 05/30 by interventional radiology. Certainly, the patient may benefit from drainage of the effusion again. Unfortunately, this represents recurrent issue and is difficult to coordinate as the patient is on Eliquis and continues to have to be off her medication for at least 48 hours prior to draining. Consideration for indwelling catheter could be discussed, however treatment of the underlying cause of the recurrent effusion seems like the most reasonable option would be forward at this time. Unfortunately, it appears as though her renal function continues to decline and question degree of valvulopathy contributing as well. That being said, in the interim, we can certainly remove the fluid if she continues with worsening symptoms. Otherwise, would defer to nephrology and cardiology for ongoing management of her recurrent effusion related to volume status. Would recommend discussing the patient with Nephrology to consider the utility of any changes in the patient's diuretic therapy. Plan to hold Eliquis for now. We will reassess effusion tomorrow and plan to drain tomorrow as her respiratory status has slightly improved. 2. Hypoxia - Again, multifactorial, but with worsening in the setting of return of RIGHT-sided effusion. Supplemental oxygen as needed. 3. Pleural effusion - Unremarkable pleural studies during previous thoracenteses. Leaning towards heart failure and volume status as likely cause. Again, likely requires draining given symptoms at this time. 4. Restrictive airway disease - Noted on prior pulmonary function testing. Likely related to reaccumulation of pleural fluid. 5. Tracheomalacia - Appreciated during previous hospitalization with intubation. Patient did require positive pressure ventilation techniques at that time to help stent open airway. Would advocate for in lab sleep study given her fragile respiratory and cardiac state. This would assess for the need for positive airway pressure which certainly could be beneficial in a patient with underlying asthma COPD overlap syndrome as well as recurrent pleural effusions. 6. Multiple pulmonary nodules - They have appeared stable in the past. 7. Hypoxia - Again, likely secondary to above. Patient will require supplemental oxygen for now. This can be reassessed as we gain better control over her recurrent effusions. Thank you for allowing us to precipitate the care of this pleasant patient. We will be happy to follow along while inpatient. Admission and Anticipated Discharge Date Admission Date: June 06, 2023 Subjective Patient seen and evaluated by myself. She feels as though she is breathing somewhat better this morning, however she has not been very active. She reports increasing urinary output. She states that she previously had some heaviness in her chest when she arrived, but this is resolved. She is tolerating nasal cannula alone at this point. Review of Systems Review of Systems: A complete 10 point review of systems was reviewed with the patient with pertinent positives and negatives as per history of present illness. All else were negative. Physical Exam Physical Exam: VITAL SIGNS - Vital signs and nursing notes were reviewed. GENERAL - 82-year-old female appearing her stated age who is in no acute distress. Communicates well with provider and answers questions appropriately. LUNGS - Auscultation reveals decreased breath sounds at the RIGHT sided lung base. No wheezes or rales noted. CARDIAC - RRR with S1/S2. No murmur, rubs, or gallops appreciated. PSYCH - A&Ox3 and cooperates fully with examiner. Pt is very pleasant and interacts well with examiner. Results & Data Results & Data Vital Signs (Past 12 Hours) Vital Signs Temp Pulse Pulse Resp BP Pulse Ox O2 Del Method 06/08/23 07:40 36.9 C 51 L 16 147/66 H 97 Nasal Cannula 06/08/23 07:12 54 L 18 97 Nasal Cannula 06/08/23 07:00 49 L 06/08/23 04:32 36.5 C 49 L 20 129/65 98 Nasal Cannula 06/08/23 00:50 55 L 06/07/23 23:13 36.7 C 55 L 18 138/61 94 Room Air O2 Flow Rate 06/08/23 07:40 3 06/08/23 07:12 4 06/08/23 07:00 06/08/23 04:32 4 06/08/23 00:50 06/07/23 23:13 PG Care Time/CCT Total # of Minutes Spent Total Time Spent with Patient: Total time spent is greater than 50% in coordination of care (as documented) at patient's floor/unit and/or counseling patient: Coding Level of Care Code 71632 SUB INP/OBS CARE 2/35MIN Diagnoses Hypoxia R09.02 RIVAS (dyspnea on exertion) R06.09 Pleural effusion J90 Restrictive airway disease J98.4 Tracheomalacia J39.8 Multiple pulmonary nodules R91.8 Asthma-COPD overlap syndrome J44.9
[2023-06-08] MEDS: METOPROLOL TARTRATE 25 MG TAB PO SCH ×2 (08:21→21:02)
[2023-06-08] MEDS: BUDESONIDE 0.5 MG/2 ML VIAL (PULMICORT) NEB SCH ×2 (08:21→17:55)
--- NOTE | 2023-06-08 12:03 | Nephrology Consultation ---
Date of Consultation June 08, 2023 Assessment & Plan (1) Stage 5 chronic kidney disease not on chronic dialysis: (2) Secondary hyperparathyroidism of renal origin: (3) Anemia in CKD (chronic kidney disease): (4) Pleural effusion: (5) Hypoxia: Plan 82 y o f with Stage 5 CKD, b/l cr 3.6-3.8, eGFR 10-12, unclear etiology for CKD ( presented late and never had biopsy with h/o thromboembolic disease and high risk to stop anticoagulant), admitted with SOB, Hypoxia and recurrent right- sided pleural effusion. . Renal function stable at baseline, electrolyte acceptable. Has mature left BC AV fistula. Renal function staying relatively stable, electrolyte acceptable. No lower extremity edema, adequate response to diuretics and volume status seems quite acceptable. Hemoglobin stable. Recurrent pleural effusion unlikely related to her advanced renal dysfunction as she has been having decent urine output and responds very well to diuretics and otherwise no sign of volume overload. Could be due to underlying severe mitral regurgitation --Agree with pleural tap tomorrow and then wait for decision regarding any intervention for mitral regurgitation --continue IV lasix, accurate intake and output, aim for net negative. --continue calcitriol 0.5 mcg 3 times a week. --Epogen given yesterday -- avoid all NSAIDs, left arm nephrology precaution. 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 Will follow. Thank you for allowing me to participate in your patient's care. It was a p celia to see Martha. History of Present Illness Reason for Consultation: Stage 5 CKD, recurrent right-sided pleural effusion. Attending Physician: Adolfo Barnes MD History of Present Illness Ms. Martha Raygoza is a 82-year-old female with PMH significant for stage 5 CKD, HTN, h/o PE, history of recurrent right-sided pleural effusion, admitted to the hospital with acute worsening of shortness of breath and hypoxia with reaccumulation of right-sided pleural effusion. Nephrology consult requested for management of volume overload. EMR records were reviewed in detail during patient's visit. Her son was at bedside Martha was admitted to the hospital on 06/06/23 as she was having progressive shortness of breath at home and pulse ox showed her oxygen saturation in high 70s at home. She has been having recurrent right-sided pleural effusion over last few months requiring multiple hospitalization and thoracentesis. Her last thoracentesis was 05/30/2023 and had 1400 mL of fluid removed. After the procedure she was feeling otherwise well. 2 days ago at home she again started noticing shortness of breath with hypoxia on room air and presented to ER. Chest x-ray in ER showed right-sided pleural effusion however no significant worsening compared to the x-ray after the pleural tap on 05/30/2023. She was continued on Lasix 20 mg daily and nasal cannula oxygen. She reports decent urine output with frequent urination after Lasix dose. Her weight has been stable, no LE edema. Overall she also feels her respiratory status has been okay with nasal cannula oxygen. She was seen by pulmonary and currently her Eliquis on hold and plan for pleural tap tomorrow after holding Eliquis for 48 hours. She has severe mitral regurgitation and she was recently seen at [facility] for evaluation for mitral clip and plan to have a meeting this Tuesday for determination to see whether she would be a candidate for the procedure. Renal function has been stable and close to her baseline of 3.5-3.8 since admission. Electrolyte has been acceptable. Blood pressure has been fair. Has stage 5 CKD, b/l cr 3.5 to 3.8, eGFR around 10-12 for alst almost 5 years.. Urinalysis with no proteinuria, hematuria pyuria. Workup including serological workup and paraproteinemia workup was unremarkable, no hypercalcemia or hypoalbuminemia. Renal ultrasound showed bilateral cortical thinning and atrophic kidneys, no hydronephrosis. No h/o NSAIDs use or autoimmune disease. Never smoker. Retired, lives at home alone, No known f/h of CKD, ESRD. Has mature AVF, placed by Dr. Hernandez on Mar 2020. Renal biopsy was initially planned but cancelled as urinalysis was unremarkable and serological workup was negative and high risk for thromboembolism and or bleeding as anticoagulation would need to be on hold for biopsy. Past medical history also significant for bilateral PE since 2018, thrombophilia workup was unremarkable. 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 H/O colonic polyp last colonoscopy was 2017, varicose vein s/p stripping, recurrent urinary tract infection, anxiety, depression. No HTN, DM, CAD. h/o chronic anemia, hemoglobin 9.0 to 9, on JOSHUA. She was overall feeling well this morning, denied any significant shortness of breath and feels like nasal cannula oxygen has been helping. Renal function and electrolyte stable. Blood pressure well controlled. Allergies Allergy/AdvReac Type Severity Reaction Status Date / Time Sulfa (Sulfonamide AdvReac Intermediate HEADACHE, Verified 06/06/23 16:24 Antibiotics) VERTIGO adhesive AdvReac skin tears Verified 06/06/23 16:27 Home Medications Medication Instructions Recorded Confirmed Type aspirin 81 mg tablet,delayed 81 mg PO HS 07/02/19 06/06/23 History release (Adult Low Dose Aspirin) meclizine 12.5 mg tablet 12.5 mg PO TID PRN dizziness #30 06/10/22 06/06/23 Rx tabs paroxetine HCl 40 mg tablet 40 mg PO HS 07/25/22 06/06/23 History sennosides 8.6 mg-docusate sodium 1 tab PO BID #60 tabs 08/19/22 06/06/23 Rx 50 mg tablet (Senokot-S) ferrous sulfate 325 mg (65 mg 325 mg PO QAM #90 tabs 10/04/22 06/06/23 Rx iron) tablet,delayed release metoprolol tartrate 25 mg tablet 12.5 mg (1/2 x 25 mg) PO BID #90 10/04/22 06/06/23 Rx tabs atorvastatin 20 mg tablet 20 mg PO HS #90 tabs 11/10/22 06/06/23 Rx albuterol sulfate 90 mcg/actuation 2 puff inhalation Q6H PRN 11/24/22 06/06/23 Rx aerosol inhaler Shortness Of Breath Or Wheezing #18 grams budesonide-formoterol HFA 160 2 puff inhalation BID #10.2 grams 11/24/22 06/06/23 Rx mcg-4.5 mcg/actuation aerosol inhaler (Symbicort) ipratropium 0.5 mg-albuterol 3 mg 3 ml inhalation Q2H PRN shortness 11/24/22 06/06/23 Rx (2.5 mg base)/3 mL nebulization of breath or wheezing #180 mL soln calcitriol 0.5 mcg capsule 0.5 mcg PO 3XWK #45 caps 12/02/22 06/06/23 Rx cyanocobalamin (vitamin B-12) 1,000 mcg PO DAILY #90 caps 12/22/22 06/06/23 Rx 1,000 mcg capsule apixaban 2.5 mg tablet (Eliquis) 2.5 mg PO BID #180 tabs 01/31/23 06/06/23 Rx epoetin kole 40,000 unit/mL 40,000 unit subcut .q2w 60 days #4 02/15/23 06/06/23 Rx injection solution mL fluticasone propionate 50 2 spray intranasal DAILY PRN 04/21/23 06/06/23 History mcg/actuation nasal allergies spray,suspension (Allergy Relief (fluticasone)) furosemide 20 mg tablet 20 mg PO BID 04/21/23 06/06/23 History polyethylene glycol 3350 17 gram 17 g PO DAILY PRN Constipation 04/21/23 06/06/23 History oral powder packet (Miralax) amiodarone 200 mg tablet 200 mg PO QPM 05/12/23 06/06/23 History Over Night Pulse OX #1 ea 05/23/23 05/31/23 Rx Oxygen Home #1 ea 05/23/23 05/31/23 Rx lorazepam 0.5 mg tablet 0.25 - 0.5 mg (0.5 - 1 x 0.5 mg) 05/31/23 06/06/23 Rx PO HS PRN anxiety/insomnia #30 tabs sodium chloride 0.9 % solution 5 ml miscellaneous BID 06/06/23 06/06/23 History (Saline Wound Wash) Patient History Medical History COPD (chronic obstructive pulmonary disease) Rheumatoid arthritis Slow to wake up after anesthesia happened once time Hx of vertigo "none for quite some time, occurred when taking sulfa for her bladder problems" Mitral regurgitation Acute respiratory failure with hypoxia hx-hospitalized 04/21/23 @[facility] Restrictive lung disease daily inh, inh and neb prn Paroxysmal atrial fibrillation Pleural effusion 07/2022, pt unsure about this? Chronic kidney disease, stage V no dialysis; f/u dr. tinsley Acute on chronic diastolic CHF (congestive heart failure) recently hospitalized @[facility] on 04/21/23 Chronic anticoagulation Atrial fibrillation with rapid ventricular response currently on eliquis; f/u dr. 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 Surgical History History of esophagogastroduodenoscopy (EGD) Hx of colonoscopy Hx of vein stripping Hx of hysterectomy Family History Mother Blood clot in vein Father Myocardial infarction Sister Blood clot in vein Breast cancer Aunt Blood clot in vein Son Prostate cancer Denies family history of Ovarian cancer Colorectal cancer Social History Smoking Status: Never smoker Second Hand Exposure: Yes (hx growing up); Do You Dip or Chew Tobacco: No; Hx Alcohol Use: No Hx Substance Use: No Preferred Language: Turkmen Communication Ability: Effective Visual Impairment: Limited Hearing Ability: Use of Hearing Aid Vehicle Inspector Required: Yes Beliefs That Will Affect Care: None marital status: / Current Living Situation: Family Current Living Situation Comment: family assists w/ driving to [place] appts and getting groceries current occupational status: retired 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 Physical Exam Constitutional: WD/WN, vitals as above no acute distress Eyes: + anicteric sclerae Neck: normal visual inspection Respiratory: no respiratory distress Auscultation: + diminished lung sounds Cardiovascular: Rate/Rhythm: regular rate and regular rhythm Heart Sounds: + murmur Extremities: no edema Gastrointestinal (Abdomen): Inspection/Auscultation: abdomen normal to inspection Percussion/Palpation: abdomen soft; abdomen nontender Musculoskeletal: Extremities: extremities normal to inspection Skin: + turgor decreased; no rashes and no les ions Neurologic: no focal motor deficits Psychiatric: Orientation: alert and oriented x 3 Affect: euthymic affect Results & Data Vital Signs (Past 12 Hours) Vital Signs Temp Pulse Pulse Resp BP Pulse Ox O2 Del Method 06/08/23 08:00 Nasal Cannula 06/08/23 07:40 36.9 C 51 L 16 147/66 H 97 Nasal Cannula 06/08/23 07:12 54 L 18 97 Nasal Cannula 06/08/23 07:00 49 L 06/08/23 04:32 36.5 C 49 L 20 129/65 98 Nasal Cannula 06/08/23 00:50 55 L O2 Flow Rate 06/08/23 08:00 3 06/08/23 07:40 3 06/08/23 07:12 4 06/08/23 07:00 06/08/23 04:32 4 06/08/23 00:50 PG Care Time/CCT Total # of Minutes Spent Total Time Spent with Patient: Total time spent is greater than 50% in coordination of care (as documented) at patient's floor/unit and/or counseling patient: Coding Level of Care Code 48180 INT INP/OBS CARE 3/75MIN Diagnoses Stage 5 chronic kidney disease not on chronic dialysis N18.5 Secondary hyperparathyroidism of renal origin N25.81 Anemia in CKD (chronic kidney disease) N18.9; D63.1 Pleural effusion J90 Hypoxia R09.02
--- NOTE | 2023-06-08 13:20 | Hospitalist Progress Note ---
Date of Service June 08, 2023 Assessment & Plan (1) RIVAS (dyspnea on exertion): Plan: -Most likley due to fluid overload from acute CHF exacerbation and pleural effusion -Reduced air entry on asucultation -Her chest xray is not significantly changed since 05/30 on chest Xray S/P right thoracentesis, but still some pleural effusion, plan to tap per Pulmonology -Low suspicion for PE at this time as she has not missed a dose of her Eliquis recently, has been hemodynamically stable, and has been without pleuritic chest pain -Biofire is negative -BNP 2600, up from 900 last month -Continue with BID 20mg IV lasix for now, will be wary of renal function, so will consult nephrology -Monitor I/O, daily weights -Continue eliquis for DVT PPX -HH diet with 2gm sodium restriction and 1500 mL fluid restriction for now (2) Asthma-COPD overlap syndrome: Plan: -See RIVAS -Will convert home Budesonide-Formoterol to nebulized form in the acute period -Incentive spirometry, flutter therapy, prn O2 -Pulmonology consult (3) Elevated troponin I level: Plan: -Initial high sen trop elevated at 25, 2 hour repeat at 29 -Patient denies chest discomfort, no acute ST segment or T-wave changes noted on ECG -Likely related to demand -Will obtain an am high sen trop to ensure it does not continue to rise -Continue to monitor on tele (4) Wound of right lower extremity: Plan: -Patient has a large, chronic wound on the medial aspect of the right calf -Appears dry with intact eschar -Patient's brother states they have had it worked up in the past -Appears as though previous contusion may have developed into a chronic wound -xray of the Right tib/fib was normal -No signs or erythema/swelling to suggest cellulitis, will hold abx for now (5) Paroxysmal atrial fibrillation: Plan: -Stable -Continue metoprolol -Will continue Eliquis at this time as it does not appear that she has a large enough right pleural effusion to require thoracentesis at this time (6) Hypertension: Plan: -Stable -Recently had amlodipine DC'd due to ongoing hypotension -Continue metoprolol (7) CKD (chronic kidney disease): Plan: -Follows with Nephrology, has mature left BC AV fistula if needed -Avoid nephrotoxic agents -Monitor daily renal function (8) Heart failure with preserved ejection fraction: Plan: Mitral regurgitation Follows up with heart failure clinic outpatient Monitor I/O, daily weight Plan continue to monitor Admission and Anticipated Discharge Date Admission Date: June 06, 2023 Subjective patient seen and examined,shortness of breath is better Review of Systems Review of Systems: All systems reviewed are negative, apart from the ones contained in the history. Physical Exam Physical Exam: The patient is awake, alert and oriented 3, well developed and well nourished, normocephalic and atraumatic, lying in bed and in no acute distress. HEENT--PERRL, EOMI, mucous membranes and oropharynx mildly dry Neck--supple. No JVD. No bruits. Thyroid normal, trachea midline, no adenopathy. Heart--normal S1 and S2. Systolic murmurs, rubs or gallops. Lungs--Reduced air entry on ausculataion Abdomen--normal bowel sounds and soft. Mild epigastric and left sided abdominal pain Extremities--no cyanosis or clubbing. No edema. Dermatologic--normal skin turgor, normal color, no abnormal lymph nodes, no rash. Neurologic--cranial nerves II through XII grossly intact. Rheumatologic--normal range of motion. Psychiatric--normal affect. Results & Data Results & Data Vital Signs (Past 12 Hours) Vital Signs Temp Pulse Pulse Resp BP Pulse Ox O2 Del Method 06/08/23 12:10 97.9 F 88 16 114/50 L 98 Nasal Cannula 06/08/23 08:00 Nasal Cannula 06/08/23 07:40 98.4 F 51 L 16 147/66 H 97 Nasal Cannula 06/08/23 07:12 54 L 18 97 Nasal Cannula 06/08/23 07:00 49 L 06/08/23 04:32 97.7 F 49 L 20 129/65 98 Nasal Cannula O2 Flow Rate 06/08/23 12:10 3 06/08/23 08:00 3 06/08/23 07:40 3 06/08/23 07:12 4 06/08/23 07:00 06/08/23 04:32 4 PG Care Time/CCT Total # of Minutes Spent Total Time Spent with Patient: Total time spent is greater than 50% in coordination of care (as documented) at patient's floor/unit and/or counseling patient: Coding Level of Care Code 02089 SUB INP/OBS CARE 2MIN Diagnoses RIVAS (dyspnea on exertion) R06.09 Asthma-COPD overlap syndrome J44.9 Elevated troponin I level R79.89 Wound of right lower extremity S81.801A Paroxysmal atrial fibrillation I48.0 Hypertension I10 CKD (chronic kidney disease) N18.9 Heart failure with preserved ejection fraction I50.30 Time Spent (min) 35
[2023-06-08] MEDS: AMIODARONE 200 MG TAB PO SCH (21:00)
[2023-06-08] MEDS: ATORVASTATIN 20 MG TAB PO SCH (21:01)
[2023-06-08] MEDS: CALCITRIOL 0.25 MCG CAPSULE PO SCH (21:01)
[2023-06-08] MEDS: ASPIRIN 81 MG ECTAB PO SCH (21:01)
[2023-06-08] MEDS: PARoxetine HCL 20 MG TAB PO SCH (21:03)
[2023-06-09] MEDS: ACETAMINOPHEN 325 MG TAB PO PRN ×2 (04:04→11:22)
[2023-06-09 05:33] LABS: Basophils # (auto) 0.05 K/uL (0.00-0.20); Eosinophils # (auto) 0.25 K/uL (0.00-0.50); Eosinophils % (auto) 5.1 %; Hematocrit (blood only) 31.1 % (37.0-47.0); Hemoglobin 9.7 g/dl (12.0-16.0); Immature Granulocytes # (auto) 0.02 K/uL (0.01-0.20); Immature Granulocytes % (auto) 0.4 %; Lymphocytes # (auto) 0.93 K/uL (1.20-3.40); Lymphocytes % (auto) 18.9 %; Mean Corpuscular Hemoglobin 28.6 pg (25.0-34.0); Mean Corpuscular Hgb Conc 31.2 g/dL (32.0-36.0); Mean Corpuscular Volume 91.7 fL (80.0-100.0); Mean Platelet Volume 10.3 fL (9.4-12.4); Monocytes # (auto) 0.69 K/uL (0.11-0.59); Neutrophils # (auto) 2.99 K/uL (1.40-6.50); Neutrophils % (auto) 60.6 %; Platelet Count 206 K/uL (130-400); RDW Coefficient of Variation 18.5 % (11.5-14.5); RDW Standard Deviation 62.2 fL (36.4-46.3); Red Blood Count 3.39 M/uL (4.20-5.40); White Blood Count 4.93 K/ul (4.8-10.8)
[2023-06-09 05:34] LABS: BUN Creatinine Ratio 12.8 (10-20); Calcium 9.1 mg/dl (8.6-10.3); Est GFR (African American) 13.5 ml/min; Est GFR (Non-African American) 11.7 ml/min; Magnesium 2.1 mg/dl (1.7-2.4); Potassium 3.5 mmol/L (3.5-5.1)
[2023-06-09 05:55] LABS: INR 1.1 (0.9-1.1); Prothrombin Time 11.5 Seconds (9.0-12.0)
[2023-06-09] MEDS: FORMOTEROL 20 MCG/2 ML VIAL NEB SCH (07:04)
[2023-06-09] MEDS: BUDESONIDE 0.5 MG/2 ML VIAL (PULMICORT) NEB SCH (07:04)
[2023-06-09] MEDS: FUROSEMIDE 20 MG TAB PO SCH (09:07)
[2023-06-09] MEDS: METOPROLOL TARTRATE 25 MG TAB PO SCH (09:07)
[2023-06-09] MEDS: FERROUS SULFATE 325 MG TAB PO SCH (09:07)
--- NOTE | 2023-06-09 09:27 | Pulmonology Progress Note ---
Date of Service June 09, 2023 Assessment & Plan (1) Hypoxia: (2) RIVAS (dyspnea on exertion): (3) Pleural effusion: (4) Restrictive airway disease: (5) Tracheomalacia: (6) Multiple pulmonary nodules: (7) Asthma-COPD overlap syndrome: Plan IMPRESSION: 82-year-old female with an extensive past medical history who presents with complaints of worsening dyspnea on exertion from her baseline. RECOMMENDATIONS: 1. Dyspnea on exertion - Again, multifactorial in the frail-appearing 82-year-old kyphotic female with underlying cardiac disease and asthma COPD overlap syndrome in the setting of recurrent pleural effusions. Acute on chronic episode likely related to reaccumulation of RIGHT-sided pleural effusion. This was recently drained on 05/30 by interventional radiology. Certainly, the patient may benefit from drainage of the effusion again. Unfortunately, this represents recurrent issue and is difficult to coordinate as the patient is on Eliquis and continues to have to be off her medication for at least 48 hours prior to draining. Consideration for indwelling catheter could be discussed, however treatment of the underlying cause of the recurrent effusion seems like the most reasonable option would be forward at this time. Unfortunately, it appears as though her renal function continues to decline and question degree of valvulopathy contributing as well. That being said, in the interim, we can certainly remove the fluid if she continues with worsening symptoms. Otherwise, would defer to nephrology and cardiology for ongoing management of her recurrent effusion related to volume status. Would recommend discussing the patient with Nephrology to consider the utility of any changes in the patient's diuretic therapy. Plan to hold Eliquis for now. We will reassess effusion tomorrow and plan to drain tomorrow as her respiratory status has slightly improved. 2. Hypoxia - Again, multifactorial, but with worsening in the setting of return of RIGHT-sided effusion. Supplemental oxygen as needed. 3. Pleural effusion - Unremarkable pleural studies during previous thoracenteses. Leaning towards heart failure and volume status as likely cause. Again, likely requires draining given symptoms at this time. 4. Restrictive airway disease - Noted on prior pulmonary function testing. Likely related to reaccumulation of pleural fluid. 5. Tracheomalacia - Appreciated during previous hospitalization with intubation. Patient did require positive pressure ventilation techniques at that time to help stent open airway. Would advocate for in lab sleep study given her fragile respiratory and cardiac state. This would assess for the need for positive airway pressure which certainly could be beneficial in a patient with underlying asthma COPD overlap syndrome as well as recurrent pleural effusions. 6. Multiple pulmonary nodules - They have appeared stable in the past. 7. Hypoxia - Again, likely secondary to above. Patient will require supplemental oxygen for now. This can be reassessed as we gain better control over her recurrent effusions. Thank you for allowing us to precipitate the care of this pleasant patient. We will be happy to follow along while inpatient. Admission and Anticipated Discharge Date Admission Date: June 06, 2023 Review of Systems Review of Systems: A complete 10 point review of systems was reviewed with the patient with pertinent positives and negatives as per history of present illness. All else were negative. Physical Exam Physical Exam: VITAL SIGNS - Vital signs and nursing notes were reviewed. GENERAL - 82-year-old female appearing her stated age who is in no acute distress. Communicates well with provider and answers questions appropriately. LUNGS - Auscultation reveals decreased breath sounds at the RIGHT sided lung base. No wheezes or rales noted. CARDIAC - RRR with S1/S2. No murmur, rubs, or gallops appreciated. PSYCH - A&Ox3 and cooperates fully with examiner. Pt is very pleasant and interacts well with examiner. Results & Data Results & Data Vital Signs (Past 12 Hours) Vital Signs Temp Pulse Pulse Resp BP Pulse Ox O2 Del Method 06/09/23 09:07 67 06/09/23 07:56 36.5 C 56 L 16 125/65 93 Room Air 06/09/23 07:13 52 L 06/09/23 07:05 71 16 98 Nasal Cannula 06/09/23 03:57 36.8 C 53 L 18 137/67 96 Nasal Cannula 06/09/23 00:08 58 L 06/08/23 23:22 36.9 C 56 L 18 133/63 97 Nasal Cannula 06/08/23 21:48 Nasal Cannula O2 Flow Rate 06/09/23 09:07 06/09/23 07:56 06/09/23 07:13 06/09/23 07:05 2 06/09/23 03:57 2 06/09/23 00:08 06/08/23 23:22 3 06/08/23 21:48 3 PG Care Time/CCT Total # of Minutes Spent Total Time Spent with Patient: Total time spent is greater than 50% in coordination of care (as documented) at patient's floor/unit and/or counseling patient: Coding Diagnoses Hypoxia R09.02 RIVAS (dyspnea on exertion) R06.09 Pleural effusion J90 Restrictive airway disease J98.4 Tracheomalacia J39.8 Multiple pulmonary nodules R91.8 Asthma-COPD overlap syndrome J44.9
--- NOTE | 2023-06-09 10:46 | Hospitalist Progress Note ---
Date of Service June 09, 2023 Assessment & Plan (1) RIVAS (dyspnea on exertion): Plan: -Most likley due to fluid overload from acute CHF exacerbation and pleural effusion -On admission, Reduced air entry on asucultation -Her chest xray is not significantly changed since 05/30 on chest Xray S/P right thoracentesis, but still some pleural effusion, plan to tap per Pulmonology -Low suspicion for PE at this time as she has not missed a dose of her Eliquis recently, has been hemodynamically stable, and has been without pleuritic chest pain -Biofire is negative -BNP 2600, up from 900 last month -Continues to make good urine with BID 20mg IV lasix Shortness of breath has significantly improved -Monitor I/O, daily weights -Continue eliquis for DVT PPX -HH diet with 2gm sodium restriction and 1500 mL fluid restriction for now -Pulmonology plans to drain her effusion tomorrow (2) Asthma-COPD overlap syndrome: Plan: -See RIVAS -Will convert home Budesonide-Formoterol to nebulized form in the acute period -Incentive spirometry, flutter therapy, prn O2 -Pulmonology consult (3) Elevated troponin I level: Plan: -Initial high sen trop elevated at 25, 2 hour repeat at 29 -Patient denies chest discomfort, no acute ST segment or T-wave changes noted on ECG -Likely related to demand -Will obtain an am high sen trop to ensure it does not continue to rise -Continue to monitor on tele (4) Wound of right lower extremity: Plan: -Patient has a large, chronic wound on the medial aspect of the right calf -Appears dry with intact eschar -Patient's brother states they have had it worked up in the past -Appears as though previous contusion may have developed into a chronic wound -xray of the Right tib/fib was normal -No signs or erythema/swelling to suggest cellulitis, will hold abx for now (5) Paroxysmal atrial fibrillation: Plan: -Stable -Continue metoprolol -Will continue Eliquis at this time as it does not appear that she has a large enough right pleural effusion to require thoracentesis at this time (6) Hypertension: Plan: -Stable -Recently had amlodipine DC'd due to ongoing hypotension -Continue metoprolol (7) CKD (chronic kidney disease): Plan: -Follows with Nephrology, has mature left BC AV fistula if needed -Avoid nephrotoxic agents -Monitor daily renal function (8) Heart failure with preserved ejection fraction: Plan: Mitral regurgitation Follows up with heart failure clinic outpatient Monitor I/O, daily weight Plan continue to monitor Admission and Anticipated Discharge Date Admission Date: June 06, 2023 Subjective patient seen and examined, shortness of breath has significantly improved Review of Systems Review of Systems: A complete 10 point review of systems was reviewed with the patient with pertinent positives and negatives as per history of present illness. All else were negative. Physical Exam Physical Exam: The patient is awake, alert and oriented 3, well developed and well nourished, normocephalic and atraumatic, lying in bed and in no acute distress. HEENT--PERRL, EOMI, mucous membranes and oropharynx mildly dry Neck--supple. No JVD. No bruits. Thyroid normal, trachea midline, no adenopathy. Heart--normal S1 and S2. Systolic murmurs, rubs or gallops. Lungs--Reduced air entry on ausculataion Abdomen--normal bowel sounds and soft. Mild epigastric and left sided abdominal pain Extremities--no cyanosis or clubbing. No edema. Dermatologic--normal skin turgor, normal color, no abnormal lymph nodes, no rash. Neurologic--cranial nerves II through XII grossly intact. Rheumatologic--normal range of motion. Psychiatric--normal affect. Results & Data Results & Data Vital Signs (Past 12 Hours) Vital Signs Temp Pulse Pulse Resp BP Pulse Ox O2 Del Method 06/09/23 10:37 Room Air 06/09/23 09:07 67 06/09/23 07:56 97.7 F 56 L 16 125/65 93 Room Air 06/09/23 07:13 52 L 06/09/23 07:05 71 16 98 Nasal Cannula 06/09/23 03:57 98.2 F 53 L 18 137/67 96 Nasal Cannula 06/09/23 00:08 58 L 06/08/23 23:22 98.4 F 56 L 18 133/63 97 Nasal Cannula O2 Flow Rate 06/09/23 10:37 06/09/23 09:07 06/09/23 07:56 06/09/23 07:13 06/09/23 07:05 2 06/09/23 03:57 2 06/09/23 00:08 06/08/23 23:22 3 PG Care Time/CCT Total # of Minutes Spent Total Time Spent with Patient: Total time spent is greater than 50% in coordination of care (as documented) at patient's floor/unit and/or counseling patient: Coding Level of Care Code 98868 SUB INP/OBS CARE 2/35MIN Diagnoses RIVAS (dyspnea on exertion) R06.09 Asthma-COPD overlap syndrome J44.9 Elevated troponin I level R79.89 Wound of right lower extremity S81.801A Paroxysmal atrial fibrillation I48.0 Hypertension I10 CKD (chronic kidney disease) N18.9 Heart failure with preserved ejection fraction I50.30 Time Spent (min) 35
--- NOTE | 2023-06-09 10:49 | Nephrology Progress Note ---
Date of Service June 09, 2023 Assessment & Plan (1) Stage 5 chronic kidney disease not on chronic dialysis: (2) Secondary hyperparathyroidism of renal origin: (3) Anemia in CKD (chronic kidney disease): (4) Pleural effusion: (5) Hypoxia: Plan 82 y o f with Stage 5 CKD, b/l cr 3.6-3.8, eGFR 10-12, unclear etiology for CKD ( presented late and never had biopsy with h/o thromboembolic disease and high risk to stop anticoagulant), admitted with SOB, Hypoxia and recurrent right- sided pleural effusion. . Renal function stable at baseline, electrolyte acceptable. Has mature left BC AV fistula. Renal function staying relatively stable, electrolyte acceptable. No lower extremity edema, adequate response to diuretics and volume status seems quite acceptable. Hemoglobin stable. Recurrent pleural effusion unlikely related to her advanced renal dysfunction as she has been having decent urine output and responds very well to diuretics and otherwise no sign of volume overload. Could be due to underlying severe mitral regurgitation --Continue Lasix 20 mg orally twice a day, accurate intake and output, aim for net negative. --continue calcitriol 0.5 mcg 3 times a week. --Epogen given on admission, hemoglobin stable. -- avoid all NSAIDs, left arm nephrology precaution. --no indication for [employer] , okay to be discharged from nephrology standpoint if clinically stable after pleural tap. Will sign off. Admission and Anticipated Discharge Date Admission Date: June 06, 2023 Desiree Thomas was seen and evaluated this morning. Overall she has been feeling well, denies shortness of breath. Had breakfast this morning. She was able to walk around the room without getting short of breath. Plan for right-sided pleural tap this afternoon. Renal function stable, electrolyte acceptable. Hemoglobin stable Review of Systems Review of Systems: Detailed review of system was done and pertinent positives and negatives are mentioned above. Physical Exam Constitutional: WD/WN, vitals as above no acute distress Eyes: + anicteric sclerae Neck: normal visual inspection Respiratory: no respiratory distress Auscultation: + diminished lung sounds Cardiovascular: Rate/Rhythm: regular rate and regular rhythm Heart Sounds: + murmur Extremities: no edema Musculoskeletal: Extremities: extremities normal to inspection Skin: + turgor decreased Neurologic: no focal motor deficits Psychiatric: Orientation: alert and oriented x 3 Affect: euthymic affect Results & Data Vital Signs (Past 12 Hours) Vital Signs Temp Pulse Pulse Resp BP Pulse Ox O2 Del Method 06/09/23 10:37 Room Air 06/09/23 09:07 67 06/09/23 07:56 36.5 C 56 L 16 125/65 93 Room Air 06/09/23 07:13 52 L 06/09/23 07:05 71 16 98 Nasal Cannula 06/09/23 03:57 36.8 C 53 L 18 137/67 96 Nasal Cannula 06/09/23 00:08 58 L 06/08/23 23:22 36.9 C 56 L 18 133/63 97 Nasal Cannula O2 Flow Rate 06/09/23 10:37 06/09/23 09:07 06/09/23 07:56 06/09/23 07:13 06/09/23 07:05 2 06/09/23 03:57 2 06/09/23 00:08 06/08/23 23:22 3 PG Care Time/CCT Total # of Minutes Spent Total Time Spent with Patient: Total time spent is greater than 50% in coordination of care (as documented) at patient's floor/unit and/or counseling patient: Coding Level of Care Code 05438 SUB INP/OBS CARE 2/35MIN Diagnoses Stage 5 chronic kidney disease not on chronic dialysis N18.5 Secondary hyperparathyroidism of renal origin N25.81 Anemia in CKD (chronic kidney disease) N18.9; D63.1 Pleural effusion J90 Hypoxia R09.02
--- NOTE | 2023-06-09 11:26 | Procedure Note ---
Procedure Note Date of Service June 09, 2023 Note Right thoracentesis with ultrasound guidance Indication: recurrent right pleural effusion My hands were washed immediately prior to the procedure. I wore a surgical cap, mask, and sterile gloves throughout the procedure. The patient was prepped and draped in a sterile manner using chlorhexidine scrub after the appropriate level was percussed and confirmed by ultrasound. 1% lidocaine was used to anesthesize the skin, subcutaneous tissue, superior aspect of the rib periosteum and parietal pleura. A finder needle was then introduced over the superior aspect of the rib to locate the pleural fluid; clear yellow colored fluid was aspirated at a depth of approximately 3 cm. A 10-blade scalpel was used to jamal the skin at the insertion site. The arrow thoracentesis kit needle was then introduced through the skin incision into the pleural space using negative aspiration pressure, The thoracentesis catheter was then threaded without difficulty. 1200 ml of clear yellow colored fluid was removed without difficulty. The catheter was then removed. No immediate complications were noted during the procedure. Post procedure POCUS showed reduction in amount of pleural fluid and lung sliding. A post-procedure chest x-ray is pending at the time of this note. The fluid will be sent for studies. Estimated blood loss is 5cc. Coding
--- NOTE | 2023-06-09 11:37 | Pulmonology Progress Note ---
Date of Service June 09, 2023 Assessment & Plan (1) Hypoxia: (2) RIVAS (dyspnea on exertion): (3) Pleural effusion: (4) Restrictive airway disease: (5) Tracheomalacia: (6) Multiple pulmonary nodules: (7) Asthma-COPD overlap syndrome: Plan IMPRESSION: 82-year-old female with an extensive past medical history who presents with complaints of worsening dyspnea on exertion from her baseline. RECOMMENDATIONS: 1. Dyspnea on exertion - right thoracentesis done today. 1200cc clear yellow fluid removed and sent for culture. Please see procedure note for details. Again, multifactorial in the frail-appearing 82-year-old kyphotic female with underlying cardiac disease and asthma COPD overlap syndrome in the setting of recurrent pleural effusions. Acute on chronic episode likely related to reaccumulation of RIGHT-sided pleural effusion. This was recently drained on by interventional radiology. Given recurrent nature of pleural effusion, Consideration for indwelling catheter could be discussed, however treatment of the underlying cause of the recurrent effusion seems like the most reasonable option. continue diuretics per renal. Follow up with cardiology. OK to resume eliquis today. 2. Tracheomalacia - Appreciated during previous hospitalization with intubation. Patient did require positive pressure ventilation techniques at that time to help stent open airway. Would advocate for in lab sleep study given her fragile respiratory and cardiac state. This would assess for the need for positive airway pressure which certainly could be beneficial in a patient with underlying asthma COPD overlap syndrome as well as recurrent pleural effusions. 6. Multiple pulmonary nodules - stable. Thank you for allowing us to participate in the care of this pleasant patient. She is stable for discharge from pulmonary standpoint with follow up with Dr. Castaneda. Will sign off but please call if any questions. Admission and Anticipated Discharge Date Admission Date: June 06, 2023 Subjective no events overnight. Physical Exam Constitutional: comfortable. sitting up in chair by the window. Respiratory: Auscultation: + diminished lung sounds and + bronchial breath sounds Cardiovascular: Rate/Rhythm: regular rate and regular rhythm Skin: no rashes, warm and dry Neurologic: CN's II-XI intact bilaterally and awake Results & Data Results & Data Vital Signs (Past 12 Hours) Vital Signs Temp Pulse Pulse Resp BP Pulse Ox O2 Del Method 06/09/23 10:37 Room Air 06/09/23 09:07 67 06/09/23 07:56 36.5 C 56 L 16 125/65 93 Room Air 06/09/23 07:13 52 L 06/09/23 07:05 71 16 98 Nasal Cannula 06/09/23 03:57 36.8 C 53 L 18 137/67 96 Nasal Cannula 06/09/23 00:08 58 L O2 Flow Rate 06/09/23 10:37 06/09/23 09:07 06/09/23 07:56 06/09/23 07:13 06/09/23 07:05 2 06/09/23 03:57 2 06/09/23 00:08 PG Care Time/CCT Total # of Minutes Spent Total Time Spent with Patient: Total time spent is greater than 50% in coordination of care (as documented) at patient's floor/unit and/or counseling patient: Coding Level of Care Code 99361 SUB INP/OBS CARE 2/35MIN Diagnoses Hypoxia R09.02 RIVAS (dyspnea on exertion) R06.09 Pleural effusion J90 Restrictive airway disease J98.4 Tracheomalacia J39.8 Multiple pulmonary nodules R91.8 Asthma-COPD overlap syndrome J44.9
--- NOTE | 2023-06-09 12:33 | XRay Report ---
XR chest 1V portable CLINICAL HISTORY: s/p right thoracentesis TECHNIQUE: Single frontal radiograph of the chest was obtained. Comparison: Comparison is made to chest radiograph 06/06/2023 FINDINGS: No lines and tubes are seen. Calcified aortic knob is seen. Reticular interstitial opacities are seen . Small right pleural effusion is seen with underlying atelectasis. No pneumothorax. IMPRESSION: Interval decrease in size of right pleural effusion without evidence of pneumothorax status post thor acentesis. ACT 112: Negative or not required by law. Electronically signed by: Real Powell M.D. 06/09/2023 12:32 PM
--- NOTE | 2023-06-09 14:51 | Discharge Summary ---
Date of Service June 09, 2023 Admission HPI Per Admitting Provider Martha is an 82-year-old female with a past medical history including HFpEF, mitral regurgitation, recurrent pleural effusions S/P right thoracentesis on 05/30, , CKD stage V, PAFib on Eliquis, anemia of CKD, hypercholesterolemia, asthma-COPD overlap syndrome, history of PE, and HTN who presented to the [facility] ED on 06/06 with complaints of SOB and generalized weakness. She placed herself on prn O2 at home but her family states that she was saturating at 76% on RA. She remained stable on RA at rest but would become significantly hypoxic with any exertion, she was otherwise stable. Labs were significant for an initial high sen trop of 25 with 2 hour repeat of 29. Chest xray was read as "no acute chest disease" but on review it appears that the patient continues to have signs of congestive failure without significant increase of recently drained pleural effusions. At the time of the exam the patient was sitting in bed in no acute distress with her brother sitting bedside, history was obtained from both. The patient had been doing well since her last thoracentesis on 05/30. She and her brother drove to the [facility] on 06/01 for evaluation of possible mitral valve replacement. She states that she continued to take all medications as prescribed, including BID lasix, despite the long car ride; they also deny the patient missing any doses of her Eliquis recently. Starting yesterday she developed acute onset of increased SOB, especially with exertion. Her brother explains that her SpO2 would fall into the 70's shortly after exertion on RA, but would quickly improve with rest and prn O2 she's has at home. She currently uses prn O2, but does not use it continuously. She denies recent fever, does note increased cough from baseline but this usually improves after she wakes and uses her normal breathing treatments. She currently feels as though her airways are tight, like she is having an exacerbation of her asthma/COPD. We had a long discussion regarding code status, at this time she wishes to be a full code with her children making decisions for her if she cannot make them herself. Principal Diagnosis acute on chronic chf exacerbation Discharge Exam The patient is awake, alert and oriented 3, well developed and well nourished, normocephalic and atraumatic, lying in bed and in no acute distress. HEENT--PERRL, EOMI, mucous membranes and oropharynx mildly dry Neck--supple. No JVD. No bruits. Thyroid normal, trachea midline, no adenopathy. Heart--normal S1 and S2. Systolic murmurs, rubs or gallops. Lungs--Reduced air entry on ausculataion Abdomen--normal bowel sounds and soft. Mild epigastric and left sided abdominal pain Extremities--no cyanosis or clubbing. No edema. Dermatologic--normal skin turgor, normal color, no abnormal lymph nodes, no rash. Neurologic--cranial nerves II through XII grossly intact. Rheumatologic--normal range of motion. Psychiatric--normal affect. Discharge Data Allergies Allergy/AdvReac Type Severity Reaction Status Date / Time Sulfa (Sulfonamide AdvReac Intermediate HEADACHE, Verified 06/06/23 16:24 Antibiotics) VERTIGO adhesive AdvReac skin tears Verified 06/06/23 16:27 Consultations 06/06/23 16:44 ED Decision to Admit Stat 06/06/23 18:14 Consult Pulmonology Routine 06/07/23 14:18 Consult Nephrology Routine Hospital Course (1) RIVAS (dyspnea on exertion): -Most likley due to fluid overload from acute CHF exacerbation and pleural effusion -On admission, Reduced air entry on asucultation -Her chest xray is not significantly changed since 05/30 on chest Xray S/P right thoracentesis, but still some pleural effusion, plan to tap per Pulmonology -Low suspicion for PE at this time as she has not missed a dose of her Eliquis recently, has been hemodynamically stable, and has been without pleuritic chest pain -Biofire is negative -BNP 2600, up from 900 last month -Continues to make good urine with BID 20mg IV lasix Shortness of breath has significantly improved -Monitor I/O, daily weights -Continue eliquis for DVT PPX -HH diet with 2gm sodium restriction and 1500 mL fluid restriction for now -Pulmonology drained 1200cc of fluid today through thoracentesis (2) Asthma-COPD overlap syndrome: -See RIVAS -Will convert home Budesonide-Formoterol to nebulized form in the acute period -Incentive spirometry, flutter therapy, prn O2 -Pulmonology consult (3) Elevated troponin I level: -Initial high sen trop elevated at 25, 2 hour repeat at 29 -Patient denies chest discomfort, no acute ST segment or T-wave changes noted on ECG -Likely related to demand -Will obtain an am high sen trop to ensure it does not continue to rise -Continue to monitor on tele (4) Wound of right lower extremity: -Patient has a large, chronic wound on the medial aspect of the right calf -Appears dry with intact eschar -Patient's brother states they have had it worked up in the past -Appears as though previous contusion may have developed into a chronic wound -xray of the Right tib/fib was normal -No signs or erythema/swelling to suggest cellulitis, will hold abx for now (5) Paroxysmal atrial fibrillation: -Stable -Continue metoprolol -Will continue Eliquis at this time as it does not appear that she has a large enough right pleural effusion to require thoracentesis at this time (6) Hypertension: -Stable -Recently had amlodipine DC'd due to ongoing hypotension -Continue metoprolol (7) CKD (chronic kidney disease): -Follows with Nephrology, has mature left BC AV fistula if needed -Avoid nephrotoxic agents -Monitor daily renal function (8) Heart failure with preserved ejection fraction: Mitral regurgitation Follows up with heart failure clinic outpatient Monitor I/O, daily weight (9) Pleural effusion: s/p thoracentesis with removal of 1200cc with continued reaccumulation due to heart failure, patient may benefit from a pleuryx catheter Plan continue to monitor Total Time Total Time Spent Total Time Spent (In Minutes): 35 Discharge Plan Discharge Items Patient Disposition: Home - Self-Care Reason For Visit: SOB, HYPOXIA Discharge Diagnosis: acute CHF exacerbation, Pleural effusion Activity: Resume your previous activity Non-emergency contact: Primary Care Provider and Lean Specialist Call non-emergency contact if: you have any medication questions Follow-up/Referrals: Soledad Meier MD [Primary Care Provider] - Diet: Heart Healthy Addtl Attending Provider Instructions: please make appointment to follow up with your regular rail bender Pending Studies at Discharge: No Stand-Alone Forms: My [employer], Smoking Cessation Medications and DC Order Prescriptions: Continued aspirin [Adult Low Dose Aspirin] 81 mg tablet,delayed release (DR/EC) 81 mg PO HS ferrous sulfate 325 mg (65 mg iron) tablet,delayed release (DR/EC) 325 mg PO QAM Qty: 90 1RF metoprolol tartrate 25 mg tablet 12.5 mg PO BID Qty: 90 3RF atorvastatin 20 mg tablet 20 mg PO HS Qty: 90 3RF calcitriol 0.5 mcg capsule 0.5 mcg PO 3XWK Qty: 45 3RF Rx Instructions: TAKE MON, WED, & FRI. IN THE HS. lorazepam 0.5 mg tablet 0.25 - 0.5 mg PO HS PRN (Reason: anxiety/insomnia) Qty: 30 0RF Rx Instructions: Ongoing therapy Supervising Physician Soledad Meier MD albuterol sulfate 90 mcg/actuation HFA aerosol inhaler 2 puff INH Q6H PRN (Reason: Shortness Of Breath Or Wheezing) Qty: 18 4RF Symbicort 160-4.5 mcg/actuation HFA aerosol inhaler 2 puff INH BID Qty: 10.2 8RF ipratropium-albuterol 0.5 mg-3 mg(2.5 mg base)/3 mL solution for nebulization 3 ml inhalation Q2H PRN (Reason: shortness of breath or wheezing) Qty: 180 3RF (DME) Oxygen Home Liters Per Minute See Rx Instructions .MEDSUPPLY Qty: 1 0RF Rx Instructions: Home Oxygen concentrator with portability, test for conserving device. 0 via n/c at rest and 4LPM via n/c with exertion and sleep; KYLAH 99. (DME) Over Night Pulse OX Misc See Rx Instructions .MEDSUPPLY Qty: 1 0RF Rx Instructions: As directed epoetin kole 40,000 unit/mL solution 40,000 unit subcut .q2w 60 Days Qty: 4 6RF Rx Instructions: Hold for Hgb >11 meclizine 12.5 mg tablet 12.5 mg PO TID PRN (Reason: dizziness) Qty: 30 0RF Patient Comments: has not needed for a long time cyanocobalamin (vitamin B-12) 1,000 mcg capsule 1,000 mcg PO DAILY Qty: 90 1RF Eliquis 2.5 mg tablet 2.5 mg PO BID Qty: 180 3RF sennosides-docusate sodium [Senokot-S] 8.6-50 mg Tablet 1 tab PO BID Qty: 60 0RF polyethylene glycol 3350 [Miralax] 17 gram powder in packet 17 g PO DAILY PRN (Reason: Constipation) furosemide 20 mg tablet 20 mg PO BID Rx Instructions: Per daughter, can take extra prn fluticasone propionate [Allergy Relief (fluticasone)] 50 mcg/actuation spray,suspension 2 spray INTNAS DAILY PRN (Reason: allergies) Rx Instructions: administer into each nostril once daily Saline Wound Wash 0.9 % solution 5 ml miscellaneous BID paroxetine HCl 40 mg tablet 40 mg PO HS amiodarone 200 mg tablet 200 mg PO QPM Discharge Orders: Discharge Order (Routine); Ordered 06/09/23 Ordered By: Adolfo Barnes Admission Data Admit Date/Time: 06/06/23 17:08 Attending Provider: Adolfo Barnes Admit Provider: Blayne Singleton Primary Care Provider: Soledad Meier Other Providers: Blayne Singleton; Karolyn White; Ksenia Rivas; Grayson Meredith [facility] Coding Level of Care Code 74062 INP/OBS DISCH >30 MIN Diagnoses RIVAS (dyspnea on exertion) R06.09 Asthma-COPD overlap syndrome J44.9 Elevated troponin I level R79.89 Wound of right lower extremity S81.801A Paroxysmal atrial fibrillation I48.0 Hypertension I10 CKD (chronic kidney disease) N18.9 Heart failure with preserved ejection fraction I50.30 Pleural effusion J90 Time Spent (min) 35
[2023-06-10] MEDS ORDERED: FLUTICASONE/VILANTEROL 200/25MCG 14 PUFFS/INHALER INH SCH (09:00)
== END 2023-06-09 16:14 | disposition home health service (06) | DRG 291 ==
LOC: ED 11:13 → SUATTDRO 17:08 → EDINP 17:08 → 2W 19:44
DX: Z86.711 Personal history of pulmonary embolism; Z79.82 Long term (current) use of aspirin; I48.0 Paroxysmal atrial fibrillation; I50.33 Acute on chronic diastolic (congestive) heart failure; I34.0 Nonrheumatic mitral (valve) insufficiency; N18.5 Chronic kidney disease, stage 5; Y92.89 Other specified places as the place of occurrence of the external cause; J91.8 Pleural effusion in other conditions classified elsewhere; N25.81 Secondary hyperparathyroidism of renal origin; D63.1 Anemia in chronic kidney disease; J44.9 Chronic obstructive pulmonary disease, unspecified; Z88.2 Allergy status to sulfonamides; R09.02 Hypoxemia; I24.89 Other forms of acute ischemic heart disease; J39.8 Other specified diseases of upper respiratory tract; I13.2 Hypertensive heart and chronic kidney disease with heart failure and with stage 5 chronic kidney disease, or end stage renal disease; I27.20 Pulmonary hypertension, unspecified; R91.8 Other nonspecific abnormal finding of lung field; R00.1 Bradycardia, unspecified; S81.801A Unspecified open wound, right lower leg, initial encounter; Z79.01 Long term (current) use of anticoagulants; X58.XXXA Exposure to other specified factors, initial encounter

== ENCOUNTER 2023-06-27 12:33 | Inpatient (IN) ==
--- NOTE | 2023-06-27 14:05 | XRay Report ---
SINGLE VIEW CHEST CLINICAL HISTORY: Atypical chest pain FINDINGS: A PA chest radiograph is compared to study dated 06/09/2023. Correlation is made with chest CT dated 04/21/2023. The heart is enlarged noting atherosclerotic calcification of the thoracic aorta . There is prominence of the pulmonary vasculature. There are enlarged left pleural effusions with de pendent consolidation. No pneumothorax is seen. The skeletal structures are osteopenic. The bony thor ax is grossly intact. IMPRESSION: 1. Cardiomegaly with prominence of the pulmonary vasculature. Correlate clinically for evidence of mi ld fluid overload/congestive change. 2. Right larger than left pleural effusions with dependent consolidation. This is similar to previous . ACT 112: Negative or not required by law. Electronically signed by: Tal Tejeda M.D. 06/27/2023 2:04 PM
[2023-06-27 14:41] LABS: Basophils # (auto) 0.05 K/uL (0.00-0.20); Basophils % (auto) 0.9 %; Eosinophils # (auto) 0.06 K/uL (0.00-0.50); Eosinophils % (auto) 1.1 %; Hematocrit (blood only) 31.3 % (37.0-47.0); Hemoglobin 9.8 g/dl (12.0-16.0); Immature Granulocytes # (auto) 0.02 K/uL (0.01-0.20); Immature Granulocytes % (auto) 0.4 %; Lymphocytes # (auto) 0.77 K/uL (1.20-3.40); Lymphocytes % (auto) 13.9 %; Mean Corpuscular Hemoglobin 28.3 pg (25.0-34.0); Mean Corpuscular Hgb Conc 31.3 g/dL (32.0-36.0); Mean Corpuscular Volume 90.5 fL (80.0-100.0); Mean Platelet Volume 10.2 fL (9.4-12.4); Monocytes # (auto) 0.48 K/uL (0.11-0.59); Monocytes % (auto) 8.7 %; Neutrophils # (auto) 4.15 K/uL (1.40-6.50); Platelet Count 243 K/uL (130-400); RDW Coefficient of Variation 18.4 % (11.5-14.5); RDW Standard Deviation 60.1 fL (36.4-46.3); Red Blood Count 3.46 M/uL (4.20-5.40); White Blood Count 5.53 K/ul (4.8-10.8)
[2023-06-27 14:53] LABS: INR 1.1 (0.9-1.1); Partial Thromboplastin Ratio 1.1; Partial Thromboplastin Time 29.9 Seconds (21.0-31.0); Prothrombin Time 12.1 Seconds (9.0-12.0)
[2023-06-27 14:56] LABS: Albumin Level 3.7 gm/dl (3.4-5.0); Anion Gap 9 (3-11); Bilirubin,Total 0.9 mg/dl (0.2-1.0); Calcium 9.2 mg/dl (8.6-10.3); Carbon Dioxide 29 mmol/L (21-32); Chloride 99 mmol/L (98-107); Sodium 137 mmol/L (136-145)
[2023-06-27 15:02] LABS: Alanine Aminotransferase 56 U/L (7-52); Albumin Globulin Ratio 1.2 (0.9-2); Alkaline Phosphatase 63 U/L (34-104); Aspartate Aminotransferase 43 U/L (13-39); BUN Creatinine Ratio 12.3 (10-20); Blood Urea Nitrogen 47 mg/dl (6-23); Est GFR (African American) 12.2 ml/min; Est GFR (Non-African American) 10.5 ml/min; Glucose 96 mg/dl (70-99(Fasting)); Total Protein 6.7 gm/dl (6.0-8.3)
[2023-06-27 15:06] LABS: Troponin I High Sensitivity 29.8 pg/ml (0-14)
--- NOTE | 2023-06-27 18:53 | Emergency Department Note ---
Impression & Plan Pleural effusion, Shortness of breath, Elevated troponin I level, CKD (chronic kidney disease) ED Provider Note NAME: JAZMÍN CARPENTER AGE: 82 SEX: F : 1940 ARRIVES VIA: Walk-In INFORMANT: Patient ED PROVIDER(S): Savage Busch DO CHIEF COMPLAINT: shortness of breath HPI: Patient is an 82-year-old female with a past medical history of CHF, dyspnea on exertion, tracheomalacia, asthma/COPD, SVT who presents to the ER for shortness of breath which has been progressing for the past 48 hours. She notes that she has a history of pleural effusions and notes that this is worsening again. She called pulmonology and they recommended coming in for admission. Patient's O2 saturations have been dropping to 80% with any movement. She denies any headache or change in vision. No chest pain. No belly pain, nausea, vomiting, or diarrhea. No dysuria, urgency, or frequency. No other exacerbating or remitting factors. She has been taking her Lasix and has not missed any doses. No swelling in her legs. ADDITIONAL HISTORY OBTAINED: Per HPI Chronic Medical/Social Conditions Affecting Care: Per HPI PAST MEDICAL HISTORY:See Below PAST SURGICAL HISTORY:See Below FAMILY HISTORY:See Below SOCIAL HISTORY:See Below HOME MEDICATIONS:See Below ALLERGIES:See Below VITALS:See Below PHYSICAL EXAMINATION: GENERAL: Sitting up in bed, alert, well appearing, well nourished, no distress, non-toxic EYE EXAM: normal conjunctiva. OROPHARYNX: no exudate, no erythema, lips, buccal mucosa, and tongue normal and mucous membranes are moist NECK: supple, no nuchal rigidity, no adenopathy, non-tender LUNGS: Crackles at the right base. Normal chest wall mechanics HEART: no murmurs, S1 normal and S2 normal ABDOMEN: abdomen soft, non-tender, normo-active bowel sounds, no masses, no rebound or guarding. UPPER EXTREMITIES: upper extremities are grossly normal. LOWER EXTREMITIES: No pitting edema. NEURO EXAM: Normal sensorium, cranial nerves II-XII grossly intact, normal speech, no gross weakness of arms, no gross weakness of legs. MEDICAL DECISION MAKING: Patient is an 82-year-old female who presents ER for above-stated complaint. IV established blood work is obtained. External records were reviewed as described below. Labs show no significant leukocytosis. Mild anemia at nearly 10. INR was unremarkable. BMP with creatinine 3.8 consistent with previous. Bilirubin and LFTs were fairly unremarkable. Troponin mildly elevated at 37.5 which I favor secondary to her CKD. BNP elevated at nearly 3000. Chest x-ray with a pleural effusion consistent with this. EKG was nondiagnostic. Patient is fairly dyspneic with any exertion and drops down to the 80s. Consequently she was discussed with the hospitalist admitted for further workup. External Records Reviewed: Seen today by dolly roldan for follow-up of previous admission Consults/Care Managements Discussions: Per [facility] Triage Nursing notes reviewed. Limited review of prior medical records performed Vital Signs: reviewed and remarkable for no significant abnormalities Differential diagnosis: Differential diagnoses includes but is not limited to pneumonia, bronchitis, COPD/Asthma exacerbation, pneumothorax, pulmonary embolism, congestive heart failure, acute coronary syndrome ER treatment provided: See below Diagnostics interpreted by me include EKG and cardiac monitoring as listed below: -Cardiac Monitoring: An order was placed for continuous cardiac monitoring. The monitor shows a rate of 60 with sinus rhythm. -ECG: Sinus rhythm rate of 57 Normal axis No PVCs Septal Q waves QTc 547 -Laboratory studies:Interpreted by me as stated above in MDM and shown below. Imaging studies: Xrays: As interpreted by me: Portable AP upright 1 view of the chest shows right pleural effusion CTs show: none Procedures:none Critical Care: None Past Med/Surg History Medical History COPD (chronic obstructive pulmonary disease) Rheumatoid arthritis Slow to wake up after anesthesia Hx of vertigo Mitral regurgitation Acute respiratory failure with hypoxia Restrictive lung disease Paroxysmal atrial fibrillation Pleural effusion Chronic kidney disease, stage V Acute on chronic diastolic CHF (congestive heart failure) Chronic anticoagulation Atrial fibrillation with rapid ventricular response Pulmonary hypertension Severe mitral regurgitation Hypercholesteremia Central retinal artery occlusion, 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 with restricted hearing of left ear Secondary hyperparathyroidism of renal origin Vitamin D deficiency Stage 5 chronic kidney disease not on chronic dialysis H/O deep venous thrombosis Anemia Bilateral pulmonary embolism Anxiety Recurrent UTI Surgical History History of esophagogastroduodenoscopy (EGD) Hx of colonoscopy Hx of vein stripping Hx of hysterectomy Family History Mother Blood clot in vein Father Myocardial infarction Sister Blood clot in vein Breast cancer Aunt Blood clot in vein Son Prostate cancer Denies family history of Ovarian cancer Colorectal cancer Social History Smoking Status: Never smoker Second Hand Exposure: Yes (hx growing up); Do You Dip or Chew Tobacco: No; Hx Alcohol Use: No Hx Substance Use: No Preferred Language: Uzbek Communication Ability: Effective Visual Impairment: Severely Limited Hearing Ability: Use of Hearing Aid Director Of Psychiatry Required: Yes Beliefs That Will Affect Care: None marital status: / Current Living Situation: Alone and Family Current Living Situation Comment: family assists w/ driving to drs appts and getting groceries current occupational status: retired 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 How many Children do You have: 3 How many Children do You have Comment: Sons work close and assist pt with meals Feels Safe at Home: Yes Childhood Exposure to Second-Hand Smoke: Yes Diet: low salt caffeine: No Dental Care, Regularly: Yes Physical Activity Frequency: Does not Exercise Seatbelt Use: always Sunscreen Use: Yes Assistive Devices: Denture - Upper and Hearing Aid - Bilateral Allergies Allergies Allergy/AdvReac Type Severity Reaction Status Date / Time Sulfa (Sulfonamide AdvReac Intermediate HEADACHE, Verified 06/24/23 16:02 Antibiotics) VERTIGO adhesive AdvReac skin tears Verified 06/24/23 16:02 Home Meds Home Medications Medication Instructions Recorded Confirmed aspirin 81 mg tablet,delayed 81 mg PO HS 07/02/19 06/27/23 release (Adult Low Dose Aspirin) paroxetine HCl 40 mg tablet 40 mg PO HS 07/25/22 06/27/23 fluticasone propionate 50 2 spray intranasal DAILY PRN 04/21/23 06/27/23 mcg/actuation nasal allergies spray,suspension (Allergy Relief (fluticasone)) furosemide 20 mg tablet 20 mg PO BID 04/21/23 06/27/23 polyethylene glycol 3350 17 gram 17 g PO DAILY PRN Constipation 04/21/23 06/27/23 oral powder packet (Miralax) amiodarone 200 mg tablet 200 mg PO QPM 05/12/23 06/27/23 Previous Rx's Medication Instructions Recorded meclizine 12.5 mg tablet 12.5 mg PO TID PRN dizziness #30 06/10/22 tabs sennosides 8.6 mg-docusate sodium 1 tab PO BID #60 tabs 08/19/22 50 mg tablet (Senokot-S) metoprolol tartrate 25 mg tablet 12.5 mg (1/2 x 25 mg) PO BID #90 10/04/22 tabs atorvastatin 20 mg tablet 20 mg PO HS #90 tabs 11/10/22 albuterol sulfate 90 mcg/actuation 2 puff inhalation Q6H PRN 11/24/22 aerosol inhaler Shortness Of Breath Or Wheezing #18 grams budesonide-formoterol HFA 160 2 puff inhalation BID #10.2 grams 11/24/22 mcg-4.5 mcg/actuation aerosol inhaler (Symbicort) ipratropium 0.5 mg-albuterol 3 mg 3 ml inhalation Q2H PRN shortness 11/24/22 (2.5 mg base)/3 mL nebulization of breath or wheezing #180 mL soln calcitriol 0.5 mcg capsule 0.5 mcg PO 3XWK #45 caps 12/02/22 cyanocobalamin (vitamin B-12) 1,000 mcg PO DAILY #90 caps 12/22/22 1,000 mcg capsule apixaban 2.5 mg tablet (Eliquis) 2.5 mg PO BID #180 tabs 01/31/23 epoetin kole 40,000 unit/mL 40,000 unit subcut .q2w 60 days #4 02/15/23 injection solution mL Over Night Pulse OX #1 ea 05/23/23 Oxygen Home #1 ea 05/23/23 lorazepam 0.5 mg tablet 0.25 - 0.5 mg (0.5 - 1 x 0.5 mg) 05/31/23 PO HS PRN anxiety/insomnia #30 tabs Results & Data (ED) Vital Signs Vital Signs - 24 hr 06/27/23 12:54 06/27/23 20:15 06/27/23 20:15 Temperature 36.7 C Temperature Source Temporal Artery Scan Pulse Rate 54 L 53 L Pulse Rate from SpO2 Sensor 55 L Respiratory Rate 17 15 Respiratory Effort / Characteristics Non-Labored Spontaneous Respiratory Depth Normal Blood Pressure 133/56 L 144/72 H Blood Pressure Mean 81 83 Blood Pressure Position Sitting Pulse Oximetry 91 96 Oxygen Delivery Method Room Air Sepsis Recent Fever Within 48 Hours No Sepsis New/Unexplained Change in Mental Status No Sepsis Action Taken by Nursing No Action Required 06/27/23 20:30 Temperature Temperature Source Pulse Rate 56 L Pulse Rate from SpO2 Sensor 56 L Respiratory Rate 20 Respiratory Effort / Characteristics Respiratory Depth Blood Pressure Blood Pressure Mean Blood Pressure Position Pulse Oximetry 100 Oxygen Delivery Method Sepsis Recent Fever Within 48 Hours Sepsis New/Unexplained Change in Mental Status Sepsis Action Taken by Nursing Laboratory Data 06/27/23 14:29 06/27/23 14:29 Lab Results 06/27/23 06/27/23 Range/Units 14:29 20:13 WBC 5.53 (4.8-10.8) K/ul RBC 3.46 L (4.20-5.40) M/uL Hgb 9.8 L (12.0-16.0) g/dl Hct 31.3 L (37.0-47.0) % MCV 90.5 (80.0-100.0) fL MCH 28.3 (25.0-34.0) pg MCHC 31.3 L (32.0-36.0) g/dL RDW Std Deviation 60.1 H (36.4-46.3) fL RDW Coeff of Alice 18.4 H (11.5-14.5) % Plt Count 243 (130-400) K/uL MPV 10.2 (9.4-12.4) fL Immature Gran % (Auto) 0.4 % Neut % (Auto) 75.0 % Lymph % (Auto) 13.9 % O'Brien % (Auto) 8.7 % Eos % (Auto) 1.1 % Baso % (Auto) 0.9 % Neut # (Auto) 4.15 (1.40-6.50) K/uL Lymph # (Auto) 0.77 L (1.20-3.40) K/uL O'Brien # (Auto) 0.48 (0.11-0.59) K/uL Eos # (Auto) 0.06 (0.00-0.50) K/uL Baso # (Auto) 0.05 (0.00-0.20) K/uL Immature Gran # (Auto) 0.02 (0.01-0.20) K/uL PT 12.1 H (9.0-12.0) Seconds INR 1.1 (0.9-1.1) APTT 29.9 (21.0-31.0) Seconds PTT Ratio 1.1 Sodium 137 (136-145) mmol/L Potassium 4.0 (3.5-5.1) mmol/L Chloride 99 (98-107) mmol/L Carbon Dioxide 29 (21-32) mmol/L Anion Gap 9 (3-11) BUN 47 H (6-23) mg/dl Creatinine 3.82 H (0.6-1.2) mg/dl Est Cr Clr Drug Dosing Not Reportable Est GFR ( Amer) 12.2 ml/min Est GFR (Non-Af Amer) 10.5 ml/min BUN/Creatinine Ratio 12.3 (10-20) Glucose 96 (70-99(Fasting)) mg/dl Calcium 9.2 (8.6-10.3) mg/dl Magnesium 2.3 (1.7-2.4) mg/dl Total Bilirubin 0.9 (0.2-1.0) mg/dl AST 43 H (13-39) U/L ALT 56 H (7-52) U/L Alkaline Phosphatase 63 (34-104) U/L Troponin I High Sens 29.8 H 37.5 H (0-14) pg/ml B-Natriuretic Peptide 2929 H (0-100) pg/ml Total Protein 6.7 (6.0-8.3) gm/dl Albumin 3.7 (3.4-5.0) gm/dl Globulin 3.0 (2.5-4.0) gm/dl Albumin/Globulin Ratio 1.2 (0.9-2) Administered Medications Amiodarone HCl (Amiodarone 200 Mg Tab) 200 mg PO QPM [facility] Stop: 07/27/23 22:21 Last Admin: 06/27/23 23:37 Dose: 200 mg Documented By: MADELEINE Aspirin (Aspirin 81 Mg Ectab) 81 mg PO [facility] Stop: 07/27/23 22:21 Last Admin: 06/27/23 23:39 Dose: 81 mg Documented By: MADELEINE Atorvastatin Calcium (Atorvastatin 20 Mg Tab) 20 mg PO [facility] Stop: 07/27/23 22:21 Last Admin: 06/27/23 23:39 Dose: 20 mg Documented By: MADELEINE Heparin Sodium/Dextrose (Heparin Sodium/Dextrose) 25,000 units in 500 mls @ 13 mls/hr IV .Q24H [facility]; Protocol Stop: 07/27/23 22:21 Last Admin: 06/27/23 23:55 Dose: 650 units/hr, 13 mls/hr Documented By: MADELEINE Co-signed By: CAMRYN Metoprolol Tartrate (Metoprolol Tartrate 25 Mg Tab) 12.5 mg PO BID [facility] Stop: 07/27/23 22:21 Last Admin: 06/27/23 23:42 Dose: Not Given Documented By: MADELEINE Paroxetine HCl (Paroxetine Hcl 20 Mg Tab) 40 mg PO [facility] Stop: 07/27/23 22:21 Last Admin: 06/27/23 23:43 Dose: 40 mg Documented By: MADELEINE Senna/Docusate Sodium (Docusate Sodium/Senna 50/8.6mg Tab) 1 tab PO BID [facility] Stop: 07/27/23 22:21 Last Admin: 06/27/23 23:44 Dose: 1 tab Documented By: MADELEINE Discontinued Medications Furosemide (Furosemide 40 Mg/4 Ml Vial) 40 mg IV NOW ONE Stop: 06/27/23 21:16 Last Admin: 06/27/23 21:48 Dose: 40 mg Documented By: SCOTT Heparin Sodium/Dextrose (Heparin Iv Adult Wt-Based Low-Dose *No* Initial Bolus Protocol) 1 each IV ONE STA; Protocol Stop: 06/27/23 22:23 Last Admin: 06/27/23 23:58 Dose: Not Given Documented By: MADELEINE Cefepime HCl (Maxipime) 20 mls @ 5 mls/min IV NOW ONE Stop: 06/27/23 21:18 Last Admin: 06/27/23 21:47 Dose: 5 mls/min Documented By: SCOTT Miscellaneous (Patient's Height &/Or Weight Needed) 1 each N/A NOW STA Stop: 06/27/23 22:34 Last Admin: 06/27/23 23:58 Dose: 1 each Documented By: Admin: 06/27/23 23:49 Dose: 1 each Documented By: MADELEINE Imaging Data Radiologist's Impression: Chest X-Ray 06/27/23 12:57 SINGLE VIEW CHEST CLINICAL HISTORY: Atypical chest pain FINDINGS: A PA chest radiograph is compared to study dated 06/09/2023. Correlation is made with chest CT dated 04/21/2023. The heart is enlarged noting atherosclerotic calcification of the thoracic aorta. There is prominence of the pulmonary vasculature. There are enlarged left pleural effusions with dependent consolidation. No pneumothorax is seen. The skeletal structures are osteopenic. The bony thorax is grossly intact. IMPRESSION: 1. Cardiomegaly with prominence of the pulmonary vasculature. Correlate clinically for evidence of mild fluid overload/congestive change. 2. Right larger than left pleural effusions with dependent consolidation. This is similar to previous. ACT 112: Negative or not required by law. Electronically signed by: Tal Tejeda M.D. 06/27/2023 2:04 PM Discharge Plan Visit Data Chief Complaint: Shortness of Breath/Dyspnea Stated Complaint: LOW OXYGEN LEVEL, 82/84 ED Provider: Savage Busch Discharge Problem: Pleural effusion, Shortness of breath, Elevated troponin I level, CKD (chronic kidney disease) Patient Disposition: Admitted As Inpatient Discharge Instructions Interventions: ED Discharge Assessment Last Done: 06/27/23 22:19 Discharge Problem: CKD (chronic kidney disease) Qualifiers: Chronic kidney disease stage: unspecified stage Qualified Code(s): N18.9 - Chronic kidney disease, unspecified
--- NOTE | 2023-06-27 19:59 | History & Physical Report ---
Date of Service June 27, 2023 Assessment & Plan (1) RIVAS (dyspnea on exertion): Plan: Acute on chronic Worsening RIVAS since the night of 06/26; dropping into the 80-89% SpO2 range with exertion Likely secondary to CHF exacerbation and pleural effusion Hx of [facility] admission on 06/06 for similar episode of RIVAS requiring thoracentesis Hx of [facility] admission on 04/21 for progressive hypoxia requiring intubation CXR revealed right larger than left pleural effusion with dependent consolidation Elevated BNP at 2929 Hold Eliquis; will give heparin IV low-dose (no bolus) in the event that she needs repeat thoracentesis; platelets okay at 243 Switch home Lasix 20mg p.o. BID --> Lasix 40mg IV BID; monitor potassium with daily BMP Strict I&O monitoring Daily weights Pulmonology consulted Empiric cefepime 2000 mg IV q12h added for pulmonary coverage; no leukocytosis at time of admission A.m. 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 on chronic dialysis: Plan: eGFR 10.5 on arrival Avoid nephrotoxic agents Follows with nephrology, has mature left BC AV fistula if needed Nephrology consulted (4) Paroxysmal atrial fibrillation: Plan: Stable; rate-controlled Continue metoprolol, amlodipine Hold eliquis (5) Elevated troponin I level: Plan: Troponin 29.8 --> 37.5 Based on prior admissions, may be chronic/stable Clinically, patient denies chest pain Continuous telemetry monitoring (6) Heart failure with preserved ejection fraction: Plan: Last echo on 05/16/2023 revealed LVEF at 60-65% (7) Parapneumonic effusion: Plan [facility]/DNI AHA diet with 2 g sodium restriction, 1500 mL fluid restriction VTE PPx: Heparin IV low-dose, no bolus, weight-based (hold eliquis) History of Present Illness Chief Complaint: SOB/Dyspnea Primary Care Provider: Soledad Meier MD Martha is an 82-year-old female with PMH of of PEs, asthmaCOPD overlap syndrome, CKD stage V (not on dialysis), HFpEF, mitral regurgitation and, paroxysmal A- fib, mixed SNHL, and recurrent pleural effusions. She presented for worsening SOB since the night of 06/26. Her daughter (Maggie) is at the bedside and provides additional history. She reports that the SOB is with exertion, not at rest. It is worse when she lies flat. She has been sleeping in an adjustable bed. She uses supplemental oxygen at home as needed; 2L NC. No CPAP or BiPAP usage at night. She reports that she had a thoracentesis 2 to 3 weeks ago. She also reports that she is going to [place] for a RAE on Tuesday for a mitral valve clip. She took all of her morning medications, except Eliquis (in case she needed that have a second thoracentesis). She denies history of smoking, tobacco use; minimal alcohol usage. Patient ambulates with a walker at baseline. She exhibits mild bradycardia at 54 bpm at time of admission; SPO2 93% on RA while at rest; vitals otherwise stable. ROS: Patient endorses RIVAS. Patient denies headache, dizziness, lightheadedness, fever, chest pain, SOB at rest, abdominal pain, N/V, urinary symptoms, or numbness or tingling going down the legs Allergies Allergy/AdvReac Type Severity Reaction Status Date / Time Sulfa (Sulfonamide AdvReac Intermediate HEADACHE, Verified 06/24/23 16:02 Antibiotics) VERTIGO adhesive AdvReac skin tears Verified 06/24/23 16:02 Home Medications Medication Instructions Recorded Confirmed Type aspirin 81 mg tablet,delayed 81 mg PO HS 07/02/19 06/27/23 History release (Adult Low Dose Aspirin) meclizine 12.5 mg tablet 12.5 mg PO TID PRN dizziness #30 06/10/22 06/27/23 Rx tabs paroxetine HCl 40 mg tablet 40 mg PO HS 07/25/22 06/27/23 History sennosides 8.6 mg-docusate sodium 1 tab PO BID #60 tabs 08/19/22 06/27/23 Rx 50 mg tablet (Senokot-S) metoprolol tartrate 25 mg tablet 12.5 mg (1/2 x 25 mg) PO BID #90 10/04/22 06/27/23 Rx tabs atorvastatin 20 mg tablet 20 mg PO HS #90 tabs 11/10/22 06/27/23 Rx albuterol sulfate 90 mcg/actuation 2 puff inhalation Q6H PRN 11/24/22 06/27/23 Rx aerosol inhaler Shortness Of Breath Or Wheezing #18 grams budesonide-formoterol HFA 160 2 puff inhalation BID #10.2 grams 11/24/22 06/27/23 Rx mcg-4.5 mcg/actuation aerosol inhaler (Symbicort) ipratropium 0.5 mg-albuterol 3 mg 3 ml inhalation Q2H PRN shortness 11/24/22 06/27/23 Rx (2.5 mg base)/3 mL nebulization of breath or wheezing #180 mL soln calcitriol 0.5 mcg capsule 0.5 mcg PO 3XWK #45 caps 12/02/22 06/27/23 Rx cyanocobalamin (vitamin B-12) 1,000 mcg PO DAILY #90 caps 12/22/22 06/27/23 Rx 1,000 mcg capsule apixaban 2.5 mg tablet (Eliquis) 2.5 mg PO BID #180 tabs 01/31/23 06/27/23 Rx epoetin kole 40,000 unit/mL 40,000 unit subcut .q2w 60 days #4 02/15/23 06/27/23 Rx injection solution mL fluticasone propionate 50 2 spray intranasal DAILY PRN 04/21/23 06/27/23 History mcg/actuation nasal allergies spray,suspension (Allergy Relief (fluticasone)) furosemide 20 mg tablet 20 mg PO BID 04/21/23 06/27/23 History polyethylene glycol 3350 17 gram 17 g PO DAILY PRN Constipation 04/21/23 06/27/23 History oral powder packet (Miralax) amiodarone 200 mg tablet 200 mg PO QPM 05/12/23 06/27/23 History Over Night Pulse OX #1 ea 05/23/23 06/24/23 Rx Oxygen Home #1 ea 05/23/23 06/24/23 Rx lorazepam 0.5 mg tablet 0.25 - 0.5 mg (0.5 - 1 x 0.5 mg) 05/31/23 06/27/23 Rx PO HS PRN anxiety/insomnia #30 tabs Past Med/Surg History Medical History COPD (chronic obstructive pulmonary disease) Rheumatoid arthritis Slow to wake up after anesthesia Hx of vertigo Mitral regurgitation Acute respiratory failure with hypoxia Restrictive lung disease Paroxysmal atrial fibrillation Pleural effusion Chronic kidney disease, stage V Acute on chronic diastolic CHF (congestive heart failure) Chronic anticoagulation Atrial fibrillation with rapid ventricular response Pulmonary hypertension Severe mitral regurgitation Hypercholesteremia Central retinal artery occlusion, 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 with restricted hearing of left ear Secondary hyperparathyroidism of renal origin Vitamin D deficiency Stage 5 chronic kidney disease not on chronic dialysis H/O deep venous thrombosis Anemia Bilateral pulmonary embolism Anxiety Recurrent UTI Surgical History History of esophagogastroduodenoscopy (EGD) Hx of colonoscopy Hx of vein stripping Hx of hysterectomy Family History Mother Blood clot in vein Father Myocardial infarction Sister Blood clot in vein Breast cancer Aunt Blood clot in vein Son Prostate cancer Denies family history of Ovarian cancer Colorectal cancer Social History Smoking Status: Never smoker Second Hand Exposure: Yes (hx growing up); Do You Dip or Chew Tobacco: No; Hx Alcohol Use: No Hx Substance Use: No Preferred Language: Polish Communication Ability: Effective Visual Impairment: Severely Limited Hearing Ability: Use of Hearing Aid [employer] Consult[employer] Required: No Beliefs That Will Affect Care: None marital status: / Current Living Situation: Family Current Living Situation Comment: Lives at home with family stopping in multiple times a day current occupational status: retired 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 How many Children do You have: 3 How many Children do You have Comment: Sons work close and assist pt with meals Feels Safe at Home: Yes Childhood Exposure to Second-Hand Smoke: Yes Diet: low salt caffeine: No Dental Care, Regularly: Yes Physical Activity Frequency: Does not Exercise Seatbelt Use: always Sunscreen Use: Yes Assistive Devices: Walker Review of Systems Review of Systems: See HPI above Physical Exam Physical Exam: General: no acute distress; non-toxic appearing; well-nourished; cooperative; SPO2 93% on RA HEENT: normocephalic, atraumatic; no scleral icterus; PERRLA w/ EOMs intact; moist mucus membrane; patient is blind in left eye; patient is deaf in right ear, hearing aid in left ear Neck: supple; + JVD; no lymphadenopathy; trachea midline Skin: warm, dry without signs of tenting; no cyanosis; no rashes, bruising, lesions, or erythema noted CV: chest wall NTP; RRR, not irregular; S1/S2 normal; +3/6 systolic ejection murmur auscultated at the second ICS MCL; pulses intact and symmetric at radial, DP, and PT Lungs: no acute respiratory distress; decreased auscultation in the right lung (auscultated anteriorly, posteriorly, and at the axilla); symmetrical chest wall expansion; no wheezing ABD: Soft, NTP; BS present; no rebound/guarding; no ascites; no distention; negative CVA tenderness MSK: no tics or fasciculations; no edema noted in the LEs b/l, nonerythematous RLE wound: Black eschar dry, intact; no signs of drainage, erythema, swelling Neuro: A&Ox3; normal mood and affect; fluent speech; no focal deficits; sensation grossly intact in the LEs B/L Results & Data Results & Data Vital Signs (Past 12 Hours) Vital Signs Temp Pulse Resp BP Pulse Ox O2 Del Method 06/27/23 12:54 36.7 C 54 L 17 133/56 L 91 Room Air Laboratory Results Abnormal lab results 06/27/23 Range/Units 14:29 RBC 3.46 L (4.20-5.40) M/uL Hgb 9.8 L (12.0-16.0) g/dl Hct 31.3 L (37.0-47.0) % MCHC 31.3 L (32.0-36.0) g/dL RDW Std Deviation 60.1 H (36.4-46.3) fL RDW Coeff of Alice 18.4 H (11.5-14.5) % Lymph # (Auto) 0.77 L (1.20-3.40) K/uL PT 12.1 H (9.0-12.0) Seconds BUN 47 H (6-23) mg/dl Creatinine 3.82 H (0.6-1.2) mg/dl AST 43 H (13-39) U/L ALT 56 H (7-52) U/L Troponin I High Sens 29.8 H (0-14) pg/ml B-Natriuretic Peptide 2929 H (0-100) pg/ml Diagnostic Findings Chest X-Ray 06/27/23 12:57 SINGLE VIEW CHEST CLINICAL HISTORY: Atypical chest pain FINDINGS: A PA chest radiograph is compared to study dated 06/09/2023. Correlation is made with chest CT dated 04/21/2023. The heart is enlarged noting atherosclerotic calcification of the thoracic aorta. There is prominence of the pulmonary vasculature. There are enlarged left pleural effusions with dependent consolidation. No pneumothorax is seen. The skeletal structures are osteopenic. The bony thorax is grossly intact. IMPRESSION: 1. Cardiomegaly with prominence of the pulmonary vasculature. Correlate clinically for evidence of mild fluid overload/congestive change. 2. Right larger than left pleural effusions with dependent consolidation. This is similar to previous. ACT 112: Negative or not required by law. Electronically signed by: Tal Tejeda M.D. 06/27/2023 2:04 PM Code Status & VTE Plan Code Status Full code VTE Prophylaxis Plan VTE Prophylaxis will be ordered: Yes Supervising Physician Co-Signing Physician Notes Attending addendum: I have physically seen this patient, have supervised the REINA's activities, and agree with the H&P unless as otherwise noted. Assessment and Plan: Fluid overload/bilateral pleural effusions, right greater than left/hypertension/dyspnea on exertion/paroxysmal atrial fibrillation/acute respiratory failure with hypoxia- The patient will be admitted to telemetry for serial cardiac enzymes, serial EKG's, cardiac rhythm monitoring and a 2-D echocardiogram with Dopplers. Lasix 40 mg IV twice daily Continue amiodarone 200 mg p.o. every morning, apixaban 2.5 mg p.o. twice daily,, metoprolol and amlodipine aspirin 81 mg daily Follow serial CBC with differential, renal function panel and magnesium level Troponin initially 29.8 with follow-up 37.5 Parapneumonic effusion- Continue cefepime IV begun in ED MRSA swab pending Left lower extremity pressure ulcer- Consult wound care Noninfected at this time Remainder of orders and notations as noted PG Care Time/CCT Total # of Minutes Spent Total Time Spent with Patient: Total time spent is greater than 50% in coordination of care (as documented) at patient's floor/unit and/or counseling patient: Coding [place] [address] INT INP/OBS CARE 3/75MIN Patient Type Established Medical Decision Making High Complexity Diagnoses RIVAS (dyspnea on exertion) R06.09 Pressure ulcer of lower extremity, stage 3 L89.893 Stage 5 chronic kidney disease not on chronic dialysis N18.5 Paroxysmal atrial fibrillation I48.0 Elevated troponin I level R79.89 Heart failure with preserved ejection fraction I50.30 Parapneumonic effusion J18.9; J91.8
[2023-06-27 21:02] LABS: Troponin I High Sensitivity 37.5 pg/ml (0-14)
[2023-06-27 21:12] LABS: Magnesium 2.3 mg/dl (1.7-2.4)
[2023-06-27] MEDS ORDERED: FUROSEMIDE 40 MG/4 ML VIAL IV ONE (21:15)
[2023-06-27] MEDS ORDERED: CEFEPIME 20 ML IV ONE (21:15)
[2023-06-27] MEDS ORDERED: ALBUT/IPRATROP 3MG/0.5MG NEB 3 ML VIAL INH PRN (22:22)
[2023-06-27] MEDS ORDERED: ALBUTEROL HFA 8 GM INHALER INH PRN (22:22)
[2023-06-27] MEDS ORDERED: HEPARIN SODIUM/DEXTROSE 25,000 UNITS/500 ML BAG IV SCH (22:22)
[2023-06-27] MEDS ORDERED: Heparin IV Adult Wt-Based Low-Dose *NO* INITIAL Bolus Protocol IV STA (22:22)
[2023-06-27] MEDS: AMIODARONE 200 MG TAB PO SCH (23:37)
[2023-06-27] MEDS: ATORVASTATIN 20 MG TAB PO SCH (23:39)
[2023-06-27] MEDS: ASPIRIN 81 MG ECTAB PO SCH (23:39)
[2023-06-27] MEDS: METOPROLOL TARTRATE 25 MG TAB PO SCH (23:42)
[2023-06-27] MEDS: PARoxetine HCL 20 MG TAB PO SCH (23:43)
[2023-06-27] MEDS: DOCUSATE SODIUM/SENNA 50/8.6MG TAB PO SCH (23:44)
[2023-06-27] MEDS: Patient's HEIGHT &/or WEIGHT Needed STA ×2 (23:49→23:58)
[2023-06-28 05:22] LABS: Basophils # (auto) 0.05 K/uL (0.00-0.20); Eosinophils # (auto) 0.27 K/uL (0.00-0.50); Eosinophils % (auto) 5.6 %; Hematocrit (blood only) 28.2 % (37.0-47.0); Hemoglobin 8.8 g/dl (12.0-16.0); Immature Granulocytes # (auto) 0.01 K/uL (0.01-0.20); Immature Granulocytes % (auto) 0.2 %; Lymphocytes # (auto) 1.11 K/uL (1.20-3.40); Lymphocytes % (auto) 23.1 %; Mean Corpuscular Hemoglobin 28.2 pg (25.0-34.0); Mean Corpuscular Hgb Conc 31.2 g/dL (32.0-36.0); Mean Corpuscular Volume 90.4 fL (80.0-100.0); Mean Platelet Volume 10.3 fL (9.4-12.4); Monocytes % (auto) 12.5 %; Neutrophils # (auto) 2.77 K/uL (1.40-6.50); Neutrophils % (auto) 57.6 %; Platelet Count 231 K/uL (130-400); RDW Coefficient of Variation 18.3 % (11.5-14.5); RDW Standard Deviation 59.7 fL (36.4-46.3); Red Blood Count 3.12 M/uL (4.20-5.40); White Blood Count 4.81 K/ul (4.8-10.8)
[2023-06-28 05:36] LABS: BUN Creatinine Ratio 12.2 (10-20); Calcium 8.9 mg/dl (8.6-10.3); Creatinine Clr Calc Pharmacy 10.3 ml/min; Est GFR (African American) 12.4 ml/min; Est GFR (Non-African American) 10.7 ml/min; Magnesium 2.3 mg/dl (1.7-2.4); Potassium 3.6 mmol/L (3.5-5.1)
[2023-06-28 06:13] LABS: INR 1.2 (0.9-1.1); Partial Thromboplastin Ratio 2.1; Prothrombin Time 12.6 Seconds (9.0-12.0)
[2023-06-28 06:16] LABS: Partial Thromboplastin Time 58.5 Seconds (21.0-31.0)
[2023-06-28] MEDS: DOCUSATE SODIUM/SENNA 50/8.6MG TAB PO SCH ×2 (08:44→21:23)
[2023-06-28] MEDS: FLUTICASONE/VILANTEROL 200/25MCG 14 PUFFS/INHALER INH SCH (08:44)
[2023-06-28] MEDS: METOPROLOL TARTRATE 25 MG TAB PO SCH ×2 (08:46→21:24)
[2023-06-28] MEDS: FUROSEMIDE 40 MG/4 ML VIAL IV SCH ×2 (08:47→16:34)
[2023-06-28] MEDS ORDERED: CEFEPIME 2,000 MG in SYRINGE 0 ML IV SCH (09:00)
--- NOTE | 2023-06-28 11:19 | Pulmonary Consultation ---
Date of Consultation June 28, 2023 Assessment & Plan (1) Shortness of breath: (2) Hypoxia: (3) Pleural effusion: (4) Restrictive airway disease: (5) Tracheomalacia: (6) Multiple pulmonary nodules: (7) Asthma-COPD overlap syndrome: Plan IMPRESSION: 82-year-old female with an extensive past medical history who presents with complaints of worsening dyspnea on exertion from her baseline. RECOMMENDATIONS: 1. Dyspnea on exertion - Multifactorial in the frail-appearing 82-year-old kyphotic female with underlying cardiac valvular disease and asthma COPD overlap syndrome in the setting of recurrent pleural effusions. Acute on chronic episode likely related to reaccumulation of RIGHT-sided pleural effusion. Last drained on 06/09 by Pulmonary. Previously drained on 05/30 by IR. The patient may benefit from drainage of the effusion again as she has clinically improved after each thoracentesis. As discussed extensively during prior admissions, this represents recurrent issue as it is difficult to coordinate in a patient who remains on Eliquis and requires being off of her anticoagulation for at least 48 hours prior to drainage. I had an extensive conversation with the patient and her son at bedside. This obviously is recurrent issue at this point. She is scheduled to be assessed at the [facility] with a RAE on Tuesday, 07/04 to evaluate if she would benefit from valvular intervention. Certainly, if this were to be the case and corrects her underlying conditions, this would prevent the need for recurrent serial thoracentesis versus Pleurx catheter placement. Additionally, the patient has been evaluated by nephrology in the past and in curbside discussion with patient's nurse companion, the question arises if instituting hemodialysis is most appropriate in a patient who is without significant electrolyte derangement and has a possible underlying correctable valvulopathy. 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 I did reiterate to the patient and her family member that thoracentesis is not correcting the underlying conditions and fixing the patient's valvulopathy and correcting her volume status which leads to the effusion is the most important treatment we could provide her moving forward. There had been discussion previously about Pleurx catheter placement, however until her underlying conditions are maximized, it makes less sense to place Pleurx catheter. Moving forward, we will place an outpatient order for standing thoracentesis evaluation on a weekly basis until she is seen and completed her work-up with structural heart surgeons at the [facility]. I will plan on seeing her in the office the week of the and follow-up after this appointment. We will communicate with office staff about arranging change in follow-up appointment which is currently scheduled for 07/05. Otherwise, the patient would benefit from thoracentesis and can likely be discharged after that point. I do not see the utility in antibiotics in this patient who has no other clinical indices to suggest underlying infectious causes of her dyspnea and hypoxia. Continue to hold Eliquis for now. Hold Heparin gtt 4 hours prior to scheduled thoracentesis (hopefully tomorrow). She can restart her Eliquis after thoracentesis. She should be stable for discharge at that point. 2. Hypoxia - Again, multifactorial, but with worsening in the setting of return of RIGHT-sided effusion. Supplemental oxygen as needed. Patient stable and in no distress at this time. 3. Pleural effusion - Unremarkable pleural studies during previous thoracenteses. As above. 4. Restrictive airway disease - Noted on prior pulmonary function testing. Likely related to reaccumulation of pleural fluid. 5. Tracheomalacia - Appreciated during previous hospitalization with intubation. Patient did require positive pressure ventilation techniques at that time to help stent open airway. Would advocate for in lab sleep study given her fragile respiratory and cardiac state. This would assess for the need for positive airway pressure which certainly could be beneficial in a patient with underlying asthma COPD overlap syndrome as well as recurrent pleural effusions. 6. Multiple pulmonary nodules - They have appeared stable in the past. Thank you for allowing us to precipitate the care of this pleasant patient. We will be happy to follow along while inpatient. History of Present Illness Reason for Consultation: R-sided pleural effusion; may need thoracentesis Requesting Physician: Crescencio Jimenes PA-C Attending Physician: Mercedes Martin MD History of Present Illness Patient is an 82-year-old female with a significant past medical history of asthma COPD overlap syndrome, recurrent pleural effusion, restrictive lung disease secondary to effusion, exertional dyspnea, pulmonary hypertension, history of pulmonary embolism currently anticoagulated on Eliquis, chronic cough, and multiple pulmonary nodules who presents to the hospital with worsening shortness of breath at her baseline. She reports that her symptoms have been worsening over the last few days. Patient has had recurrent effusion with 3 prior thoracentesis procedures. She is currently being evaluated at the [facility] structural heart specialists for possible minimally invasive intervention for valvular heart disease. She has a RAE scheduled on Tuesday for formal evaluation. She is hopeful that she will receive more information that time to see if she can undergo valvular intervention which certainly may help improve her underlying current conditions. She has dyspnea with any exertion. No chest pain or palpitations. No dizziness, lightheadedness, or presyncope. Allergies Allergy/AdvReac Type Severity Reaction Status Date / Time Sulfa (Sulfonamide AdvReac Intermediate HEADACHE, Verified 06/24/23 16:02 Antibiotics) VERTIGO adhesive AdvReac skin tears Verified 06/24/23 16:02 Home Medications Medication Instructions Recorded Confirmed Type aspirin 81 mg tablet,delayed 81 mg PO HS 07/02/19 06/27/23 History release (Adult Low Dose Aspirin) meclizine 12.5 mg tablet 12.5 mg PO TID PRN dizziness #30 06/10/22 06/27/23 Rx tabs paroxetine HCl 40 mg tablet 40 mg PO HS 07/25/22 06/27/23 History sennosides 8.6 mg-docusate sodium 1 tab PO BID #60 tabs 08/19/22 06/27/23 Rx 50 mg tablet (Senokot-S) metoprolol tartrate 25 mg tablet 12.5 mg (1/2 x 25 mg) PO BID #90 10/04/22 06/27/23 Rx tabs atorvastatin 20 mg tablet 20 mg PO HS #90 tabs 11/10/22 06/27/23 Rx albuterol sulfate 90 mcg/actuation 2 puff inhalation Q6H PRN 11/24/22 06/27/23 Rx aerosol inhaler Shortness Of Breath Or Wheezing #18 grams budesonide-formoterol HFA 160 2 puff inhalation BID #10.2 grams 11/24/22 06/27/23 Rx mcg-4.5 mcg/actuation aerosol inhaler (Symbicort) ipratropium 0.5 mg-albuterol 3 mg 3 ml inhalation Q2H PRN shortness 11/24/22 06/27/23 Rx (2.5 mg base)/3 mL nebulization of breath or wheezing #180 mL soln calcitriol 0.5 mcg capsule 0.5 mcg PO 3XWK #45 caps 12/02/22 06/27/23 Rx cyanocobalamin (vitamin B-12) 1,000 mcg PO DAILY #90 caps 12/22/22 06/27/23 Rx 1,000 mcg capsule apixaban 2.5 mg tablet (Eliquis) 2.5 mg PO BID #180 tabs 01/31/23 06/27/23 Rx epoetin kole 40,000 unit/mL 40,000 unit subcut .q2w 60 days #4 02/15/23 06/27/23 Rx injection solution mL fluticasone propionate 50 2 spray intranasal DAILY PRN 04/21/23 06/27/23 History mcg/actuation nasal allergies spray,suspension (Allergy Relief (fluticasone)) furosemide 20 mg tablet 20 mg PO BID 04/21/23 06/27/23 History polyethylene glycol 3350 17 gram 17 g PO DAILY PRN Constipation 04/21/23 06/27/23 History oral powder packet (Miralax) amiodarone 200 mg tablet 200 mg PO QPM 05/12/23 06/27/23 History Over Night Pulse OX #1 ea 05/23/23 06/24/23 Rx Oxygen Home #1 ea 05/23/23 06/24/23 Rx lorazepam 0.5 mg tablet 0.25 - 0.5 mg (0.5 - 1 x 0.5 mg) 05/31/23 06/27/23 Rx PO HS PRN anxiety/insomnia #30 tabs Patient History Medical History COPD (chronic obstructive pulmonary disease) Rheumatoid arthritis Slow to wake up after anesthesia Hx of vertigo Mitral regurgitation Acute respiratory failure with hypoxia Restrictive lung disease Paroxysmal atrial fibrillation Pleural effusion Chronic kidney disease, stage V Acute on chronic diastolic CHF (congestive heart failure) Chronic anticoagulation Atrial fibrillation with rapid ventricular response Pulmonary hypertension Severe mitral regurgitation Hypercholesteremia Central retinal artery occlusion, 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 with restricted hearing of left ear Secondary hyperparathyroidism of renal origin Vitamin D deficiency Stage 5 chronic kidney disease not on chronic dialysis H/O deep venous thrombosis Anemia Bilateral pulmonary embolism Anxiety Recurrent UTI Surgical History History of esophagogastroduodenoscopy (EGD) Hx of colonoscopy Hx of vein stripping Hx of hysterectomy Family History Mother Blood clot in vein Father Myocardial infarction Sister Blood clot in vein Breast cancer Aunt Blood clot in vein Son Prostate cancer Denies family history of Ovarian cancer Colorectal cancer Social History Smoking Status: Never smoker Second Hand Exposure: Yes (hx growing up); Do You Dip or Chew Tobacco: No; Hx Alcohol Use: No Hx Substance Use: No Preferred Language: [place] Communication Ability: Effective Visual Impairment: Severely Limited Hearing Ability: Use of Hearing Aid Engineering Inspection Assistant Required: Yes Beliefs That Will Affect Care: None marital status: / Current Living Situation: Alone and Family Current Living Situation Comment: family assists w/ driving to [email or web address] and getting groceries current occupational status: retired 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 All else were negative. Physical Exam Physical Exam: VITAL SIGNS - Vital signs and nursing notes were reviewed. GENERAL - 82-year-old female appearing her stated age who is in no acute distress. Communicates well with provider and answers questions appropriately. SKIN - Without rashes or lesions. NOSE - Midline and without cyanosis. MOUTH/OROPHARYNX - Without perioral cyanosis. NECK - Neck with FROM. LUNGS - Auscultation reveals decreased breath sounds at the RIGHT sided lung base. No wheezes or rales noted. CARDIAC - RRR with S1/S2. No murmur, rubs, or gallops appreciated. EXTREMITIES - Nail clubbing not present. No peripheral cyanosis. No pretibial edema present. +3/5 radial palpated throughout. PSYCH - A&Ox3 and cooperates fully with examiner. Pt is very pleasant and interacts well with examiner. Results & Data Results & Data Vital Signs (Past 12 Hours) Vital Signs Pulse Pulse Resp BP BP Pulse Ox Pulse Ox 06/28/23 10:00 57 L 19 97 06/28/23 10:00 140/77 06/28/23 08:30 54 L 20 98 06/28/23 08:00 135/71 06/28/23 08:00 54 L 28 H 93 06/28/23 07:30 54 L 18 99 06/28/23 07:17 53 L 06/28/23 07:00 54 L 21 98 06/28/23 06:00 53 L 18 128/81 98 06/28/23 04:30 51 L 18 98 06/28/23 04:00 146/57 H 06/28/23 04:00 53 L 16 98 06/28/23 03:30 52 L 20 98 06/28/23 03:00 53 L 19 97 06/28/23 02:30 54 L 19 99 06/28/23 02:00 55 L 21 98 06/28/23 02:00 141/70 H 06/28/23 01:30 54 L 20 96 06/28/23 01:00 54 L 21 97 06/28/23 00:30 53 L 18 98 06/28/23 00:15 98 06/28/23 00:15 53 L 18 124/99 98 06/28/23 00:13 124/99 06/28/23 00:13 53 L 19 99 06/28/23 00:00 54 L 21 99 06/28/23 00:00 84/61 L 06/27/23 23:30 54 L 23 99 O2 Del Method O2 Del Method O2 Flow Rate O2 Flow Rate 06/28/23 10:00 06/28/23 10:00 06/28/23 08:30 06/28/23 08:00 06/28/23 08:00 06/28/23 07:30 06/28/23 07:17 06/28/23 07:00 06/28/23 06:00 Nasal Cannula 2 06/28/23 04:30 06/28/23 04:00 06/28/23 04:00 06/28/23 03:30 06/28/23 03:00 06/28/23 02:30 06/28/23 02:00 06/28/23 02:00 06/28/23 01:30 06/28/23 01:00 06/28/23 00:30 06/28/23 00:15 Nasal Cannula 2 06/28/23 00:15 Nasal Cannula 2 06/28/23 00:13 06/28/23 00:13 06/28/23 00:00 06/28/23 00:00 06/27/23 23:30 PG Care Time/CCT Total # of Minutes Spent Total Time Spent with Patient: Total time spent is greater than 50% in coordination of care (as documented) at patient's floor/unit and/or counseling patient: Coding Level of Care Code 91758 INT INP/OBS CARE 3/75MIN Diagnoses Shortness of breath R06.02 Hypoxia R09.02 Pleural effusion J90 Restrictive airway disease J98.4 Tracheomalacia J39.8 Multiple pulmonary nodules R91.8 Asthma-COPD overlap syndrome J44.9
[2023-06-28] MEDS ORDERED: Heparin IV Adult Wt-Based Low-Dose *NO* INITIAL Bolus Protocol IV ONE (11:30)
--- NOTE | 2023-06-28 13:32 | Electrocardiogram Report ---
Test Reason : Blood Pressure : / mmHG Vent. Rate : 057 BPM Atrial Rate : 057 BPM P-R Int : 200 ms QRS Dur : 092 ms QT Int : 562 ms P-R-T Axes : 063 091 032 degrees QTc Int : 547 ms Sinus bradycardia Rightward axis Nonspecific T wave abnormality Abnormal ECG When compared with ECG of 06-JUN-2023 12:58, Nonspecific T wave abnormality no longer evident in Lateral leads QT has lengthened Confirmed by Shamar Rubalcava ([id number]) on 06/28/2023 1:32:17 PM Referred By: Confirmed By:Shamar Rubalcava
--- NOTE | 2023-06-28 14:13 | Nephrology Consultation ---
Date of Consultation June 28, 2023 Assessment & Plan (1) Stage 5 chronic kidney disease not on chronic dialysis: (2) Pleural effusion: (3) Anemia in CKD (chronic kidney disease): (4) SOB (shortness of breath): Plan 82 y o f with Stage 5 CKD, b/l cr 3.6-3.8, eGFR 10-12, unclear etiology for CKD ( presented late and never had biopsy with h/o thromboembolic disease and high risk to stop anticoagulant), admitted with progressive SOB, Hypoxia and recurrent right-sided pleural effusion. . Renal function stable at baseline, electrolyte acceptable. Has mature left BC AV fistula. Renal function staying relatively stable, electrolyte acceptable. No lower extremity edema, adequate response to diuretics and volume status seems quite acceptable. Hemoglobin stable. Recurrent pleural effusion unlikely related to her advanced renal dysfunction as she has been having decent urine output and responds very well to diuretics and otherwise no sign of volume overload. Could be due to underlying severe mitral regurgitation. Waiting on CT surgery at [facility] decision to see whether she would be considered to be a candidate for mitral valve replacement. --Since she has been holding Eliquis since yesterday, she possibly can have thoracentesis tomorrow and then wait for decision regarding any intervention for mitral regurgitation. In future, it would be reasonable to schedule her for weekly thoracentesis. If she is not a candidate for mitral valve replacement, we can consider starting her on dialysis to see whether ultrafiltration would help with the recurrent pleural effusion. --continue IV lasix 40 mg twice a day as started on admission, accurate intake and output, aim for net negative. If she is significantly negative would recommend changing to 40 mg orally twice daily by tomorrow. Does have risk for getting volume depleted as she had many times with high-dose of diuretics and had TUCKER --continue calcitriol 0.5 mcg 3 times a week. --Epogen one dose today --avoid all NSAIDs, left arm nephrology precaution. Thank you for allowing me to participate in your patient's care. It was a pleasure to see Martha. History of Present Illness Reason for Consultation: Stage 5 CKD, anemia, recurrent rt pleural effusion. Attending Physician: Mercedes aMrtin MD History of Present Illness Ms. Martha Raygoza is a 82-year-old female with PMH significant for stage 5 CKD, HTN, h/o PE, history of recurrent right-sided pleural effusion, admitted to the hospital with acute worsening of shortness of breath and hypoxia with reaccumulation of large right-sided pleural effusion and small left Pl effusion. Nephrology consult requested for management of volume overload. EMR records were reviewed in detail during patient's visit. She was seen in ER. Martha presented to the hospital on 06/27/23 as she has been noticing progressive shortness of breath at home with minimal activity. and pulse ox showed her oxygen saturation in high 80s at home. Since she started getting short of breath, she was holding her Eliquis thinking she may need another thoracentesis. Has been having recurrent right-sided pleural effusion over last few months requiring multiple hospitalization and thoracentesis. Her last hospitalization and thoracentesis was 06/09/2023 and had 1200 mL of fluid removed. Chest x-ray in ER showed worsening right-sided pleural effusion. At home she has been on Lasix 20 mg twice a day which was changed to 40 mg IV twice daily on admission. She reports decent urine output with frequent urination after Lasix dose. Her weight has been stable, no LE edema. She has severe mitral regurgitation and she was recently seen at [facility] for evaluation for mitral clip and waiting for determination to see whether she would be a candidate for the procedure. Renal function has been stable and close to her baseline of 3.5-3.8 since admission. Hb 8.8. Electrolyte has been acceptable. Blood pressure has been fair. Has stage 5 CKD, b/l cr 3.5 to 3.8, eGFR around 10-12 for alst almost 5 years.. Urinalysis with no proteinuria, hematuria pyuria. Workup including serological workup and paraproteinemia workup was unremarkable, no hypercalcemia or hypoalbuminemia. Renal ultrasound showed bilateral cortical thinning and atrophic kidneys, no hydronephrosis. No h/o NSAIDs use or autoimmune disease. Never smoker. Retired, lives at home alone, No known f/h of CKD, ESRD. Has mature AVF, placed by Dr. Hernandez on Mar 2020.Renal biopsy was initially planned but cancelled as urinalysis was unremarkable and serological workup was negative and high risk for thromboembolism and or bleeding as anticoagulation would need to be on hold for biopsy. Past medical history also significant for bilateral PE since 2018, thrombophilia workup was unremarkable. 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 H/O colonic polyp last colonoscopy was 2018, varicose vein s/p stripping, recurrent urinary tract infection, anxiety, depression. No HTN, DM, CAD.h/o chronic anemia, hemoglobin 9.0 to 9, on JOSHUA. She was overall feeling well this morning, denied any significant shortness of breath and feels like nasal cannula oxygen has been helping. Renal function and electrolyte stable. Blood pressure well controlled. Allergies Allergy/AdvReac Type Severity Reaction Status Date / Time Sulfa (Sulfonamide AdvReac Intermediate HEADACHE, Verified 06/24/23 16:02 Antibiotics) VERTIGO adhesive AdvReac skin tears Verified 06/24/23 16:02 Home Medications Medication Instructions Recorded Confirmed Type aspirin 81 mg tablet,delayed 81 mg PO HS 07/02/19 06/27/23 History release (Adult Low Dose Aspirin) meclizine 12.5 mg tablet 12.5 mg PO TID PRN dizziness #30 06/10/22 06/27/23 Rx tabs paroxetine HCl 40 mg tablet 40 mg PO HS 07/25/22 06/27/23 History sennosides 8.6 mg-docusate sodium 1 tab PO BID #60 tabs 08/19/22 06/27/23 Rx 50 mg tablet (Senokot-S) metoprolol tartrate 25 mg tablet 12.5 mg (1/2 x 25 mg) PO BID #90 10/04/22 06/27/23 Rx tabs atorvastatin 20 mg tablet 20 mg PO HS #90 tabs 11/10/22 06/27/23 Rx albuterol sulfate 90 mcg/actuation 2 puff inhalation Q6H PRN 11/24/22 06/27/23 Rx aerosol inhaler Shortness Of Breath Or Wheezing #18 grams budesonide-formoterol HFA 160 2 puff inhalation BID #10.2 grams 11/24/22 06/27/23 Rx mcg-4.5 mcg/actuation aerosol inhaler (Symbicort) ipratropium 0.5 mg-albuterol 3 mg 3 ml inhalation Q2H PRN shortness 11/24/22 06/27/23 Rx (2.5 mg base)/3 mL nebulization of breath or wheezing #180 mL soln calcitriol 0.5 mcg capsule 0.5 mcg PO 3XWK #45 caps 12/02/22 06/27/23 Rx cyanocobalamin (vitamin B-12) 1,000 mcg PO DAILY #90 caps 12/22/22 06/27/23 Rx 1,000 mcg capsule apixaban 2.5 mg tablet (Eliquis) 2.5 mg PO BID #180 tabs 01/31/23 06/27/23 Rx epoetin kole 40,000 unit/mL 40,000 unit subcut .q2w 60 days #4 02/15/23 06/27/23 Rx injection solution mL fluticasone propionate 50 2 spray intranasal DAILY PRN 04/21/23 06/27/23 History mcg/actuation nasal allergies spray,suspension (Allergy Relief (fluticasone)) furosemide 20 mg tablet 20 mg PO BID 04/21/23 06/27/23 History polyethylene glycol 3350 17 gram 17 g PO DAILY PRN Constipation 04/21/23 06/27/23 History oral powder packet (Miralax) amiodarone 200 mg tablet 200 mg PO QPM 05/12/23 06/27/23 History Over Night Pulse OX #1 ea 05/23/23 06/24/23 Rx Oxygen Home #1 ea 05/23/23 06/24/23 Rx lorazepam 0.5 mg tablet 0.25 - 0.5 mg (0.5 - 1 x 0.5 mg) 05/31/23 06/27/23 Rx PO HS PRN anxiety/insomnia #30 tabs Patient History Medical History COPD (chronic obstructive pulmonary disease) Rheumatoid arthritis Slow to wake up after anesthesia Hx of vertigo Mitral regurgitation Acute respiratory failure with hypoxia Restrictive lung disease Paroxysmal atrial fibrillation Pleural effusion Chronic kidney disease, stage V Acute on chronic diastolic CHF (congestive heart failure) Chronic anticoagulation Atrial fibrillation with rapid ventricular response Pulmonary hypertension Severe mitral regurgitation Hypercholesteremia Central retinal artery occlusion, 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 with restricted hearing of left ear Secondary hyperparathyroidism of renal origin Vitamin D deficiency Stage 5 chronic kidney disease not on chronic dialysis H/O deep venous thrombosis Anemia Bilateral pulmonary embolism Anxiety Recurrent UTI Surgical History History of esophagogastroduodenoscopy (EGD) Hx of colonoscopy Hx of vein stripping Hx of hysterectomy Family History Mother Blood clot in vein Father Myocardial infarction Sister Blood clot in vein Breast cancer Aunt Blood clot in vein Son Prostate cancer Denies family history of Ovarian cancer Colorectal cancer Social History Smoking Status: Never smoker Second Hand Exposure: Yes (hx growing up); Do You Dip or Chew Tobacco: No; Hx Alcohol Use: No Hx Substance Use: No Preferred Language: Martiniquais Communication Ability: Effective Visual Impairment: Severely Limited Hearing Ability: Use of Hearing Aid [employer] Required: No Beliefs That Will Affect Care: None marital status: / Current Living Situation: Family Current Living Situation Comment: family assists w/ driving to drs appts and getting groceries current occupational status: retired 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 Physical Exam Constitutional: WD/WN, vitals as above + ill appearing, + thin and + underweight; no acute distress Eyes: + anicteric sclerae Neck: normal visual inspection Respiratory: no respiratory distress Auscultation: + diminished lung sounds Cardiovascular: Rate/Rhythm: regular rate and regular rhythm Heart Sounds: + murmur Extremities: + AV fistula (left BC AVF ); no edema Gastrointestinal (Abdomen): Inspection/Auscultation: abdomen normal to inspection Percussion/Palpation: abdomen soft; abdomen nontender Musculoskeletal: Extremities: extremities normal to inspection Skin: + turgor decreased; no rashes and no les ions Neurologic: no focal motor deficits Psychiatric: Orientation: alert and oriented x 3 Affect: euthymic affect Results & Data Vital Signs (Past 12 Hours) Vital Signs Pulse Pulse Resp BP BP Pulse Ox O2 Del Method 06/28/23 10:00 57 L 19 97 06/28/23 10:00 140/77 06/28/23 08:30 54 L 20 98 06/28/23 08:00 135/71 06/28/23 08:00 54 L 28 H 93 06/28/23 07:30 54 L 18 99 06/28/23 07:17 53 L 06/28/23 07:00 54 L 21 98 06/28/23 06:00 53 L 18 128/81 98 Nasal Cannula 06/28/23 04:30 51 L 18 98 06/28/23 04:00 146/57 H 06/28/23 04:00 53 L 16 98 06/28/23 03:30 52 L 20 98 06/28/23 03:00 53 L 19 97 06/28/23 02:30 54 L 19 99 O2 Flow Rate 06/28/23 10:00 06/28/23 10:00 06/28/23 08:30 06/28/23 08:00 06/28/23 08:00 06/28/23 07:30 06/28/23 07:17 06/28/23 07:00 06/28/23 06:00 2 06/28/23 04:30 06/28/23 04:00 06/28/23 04:00 06/28/23 03:30 06/28/23 03:00 06/28/23 02:30 PG Care Time/CCT Total # of Minutes Spent Total Time Spent with Patient: Total time spent is greater than 50% in coordination of care (as documented) at patient's floor/unit and/or counseling patient: Coding Level of Care Code 00470 INT INP/OBS CARE 3/75MIN Diagnoses Stage 5 chronic kidney disease not on chronic dialysis N18.5 Pleural effusion J90 Anemia in CKD (chronic kidney disease) N18.9; D63.1 SOB (shortness of breath) R06.02
--- NOTE | 2023-06-28 14:23 | Hospitalist Progress Note ---
Date of Service June 28, 2023 Assessment & Plan (1) RIVAS (dyspnea on exertion): Plan: Acute on chronic Worsening RIVAS since the night of 06/26; dropping into the 80-89% SpO2 range with exertion Likely secondary to CHF exacerbation and pleural effusion Hx of [facility] admission on 06/06 for similar episode of RIVAS requiring thoracentesis Hx of [facility] admission on 04/21 for progressive hypoxia requiring intubation CXR revealed right larger than left pleural effusion with dependent consolidation Elevated BNP at 2929 Hold Eliquis; no need fo rheparin gtt at this point, can use SQ heparin for DVT prophylaxis Switch home Lasix 20mg p.o. BID --> Lasix 40mg IV BID-somewhat improved dyspnea, neds thoracentesis monitor potassium with daily BMP Strict I&O monitoring Daily weights Pulmonology consulted Empiric cefepime can be discontinued as no fever, no leukocytosis, and no productive cough, normal Procal (2) Pressure ulcer of lower extremity, stage 3: Plan: Chronic; since March 2023 Patient follows with wound care clinic outpatient; not currently on abx outpatient No sign of drainage, erythema, or swelling on exam Redress wound daily and paint with betadine family requesting arterial Doppler be done here as was scheduled as outpt for tomorrow anyway (3) Stage 5 chronic kidney disease not on chronic dialysis: Plan: [facility] 3.7 Avoid nephrotoxic agents Follows with nephrology, has mature left BC AV fistula if needed Nephrology consulted follow BMP (4) Paroxysmal atrial fibrillation: Plan: in sinus rhythm here Continue metoprolol, amlodipine Hold eliquis for thoracentesis no need fo rheparin gtt (5) Elevated troponin I level: Plan: Troponin 29.8 --> 37.5 Based on prior admissions, may be chronic/stable Clinically, patient denies chest pain Continuous telemetry monitoring (6) Heart failure with preserved ejection fraction: Plan: Last echo on 05/16/2023 revealed LVEF at 60-65% Plan Disposition: continued stay MedSurg telemetry DNR/DNI VTE PPx: Heparin IV low-dose, no bolus, weight-based (hold eliquis) Admission and Anticipated Discharge Date Admission Date: June 27, 2023 Subjective feeling better, less SOB no CP Physical Exam Constitutional: WD/WN, vitals as above Respiratory: normal respiratory effort; no cough Auscultation: + diminished lung sounds (right lower lung field); no crackles and no wheezes Cardiovascular: Rate/Rhythm: regular rate and regular rhythm Heart Sounds: + murmur (3/6 holosystolic murmur at apex) Extremities: no edema Results & Data Results & Data Vital Signs (Past 12 Hours) Vital Signs Pulse Pulse Resp BP BP Pulse Ox O2 Del Method 06/28/23 10:00 57 L 19 97 06/28/23 10:00 140/77 06/28/23 08:30 54 L 20 98 06/28/23 08:00 135/71 06/28/23 08:00 54 L 28 H 93 06/28/23 07:30 54 L 18 99 06/28/23 07:17 53 L 06/28/23 07:00 54 L 21 98 06/28/23 06:00 53 L 18 128/81 98 Nasal Cannula 06/28/23 04:30 51 L 18 98 06/28/23 04:00 146/57 H 06/28/23 04:00 53 L 16 98 06/28/23 03:30 52 L 20 98 06/28/23 03:00 53 L 19 97 06/28/23 02:30 54 L 19 99 O2 Flow Rate 06/28/23 10:00 06/28/23 10:00 06/28/23 08:30 06/28/23 08:00 06/28/23 08:00 06/28/23 07:30 06/28/23 07:17 06/28/23 07:00 06/28/23 06:00 2 06/28/23 04:30 06/28/23 04:00 06/28/23 04:00 06/28/23 03:30 06/28/23 03:00 06/28/23 02:30 Laboratory Results CBC, BMP, troponin reviewed PG Care Time/CCT Total # of Minutes Spent Total Time Spent with Patient: Total time spent is greater than 50% in coordination of care (as documented) at patient's floor/unit and/or counseling patient: Coding Level of Care Code 96466 SUB INP/OBS CARE 2/35MIN Diagnoses RIVAS (dyspnea on exertion) R06.09 Pressure ulcer of lower extremity, stage 3 L89.893 Stage 5 chronic kidney disease not on chronic dialysis N18.5 Paroxysmal atrial fibrillation I48.0 Elevated troponin I level R79.89 Heart failure with preserved ejection fraction I50.30
[2023-06-28] MEDS: ACETAMINOPHEN 325 MG TAB PO PRN (14:45)
[2023-06-28] MEDS ORDERED: EPOETIN ALFA 40,000 UNITS/ML VIAL SQ STA (15:10)
[2023-06-28] MEDS: HEPARIN SOD 5,000 UNIT/0.5 ML VIAL SQ SCH ×2 (15:15→21:24)
--- NOTE | 2023-06-28 16:09 | Ultrasound Report ---
US arterial duplex LE RT CLINICAL HISTORY: nonhealing right calf wound TECHNIQUE: Real-time grayscale and color and spectral Doppler ultrasound imaging of the right lower e xtremity arteries was performed. Measurements calculated based on NASCET criteria. COMPARISON: None available at the time of this dictation. FINDINGS: Triphasic flow is seen in the common femoral, superficial femoral, and popliteal arteries. Biphasic f low is seen in the anterior tibial, posterior tibial, and dorsalis pedis arteries. No elevated veloci ties are seen. Reference ranges: Normal Ankle/Brachial Index (ELVI) 1.0-1.4; 0.91-0.99 borderline; < or = 0.9 abnormal (0.7-0.89 mild, 0.51-0.69 moderate, < or = 0.5 severe peripheral arterial disease). Normal Toe/Brachial Index (TBI) > or = 0.6; < 0.6 abnormal (0.34-0.59 mild, 0.12-0.34 moderate, < or = 0.11 severe peripheral arterial disease). IMPRESSION: No hemodynamically significant stenosis. ACT 112: Negative or not required by law. Electronically signed by: Real Powell M.D. 06/28/2023 4:08 PM
[2023-06-28] MEDS: AMIODARONE 200 MG TAB PO SCH (21:21)
[2023-06-28] MEDS: ASPIRIN 81 MG ECTAB PO SCH (21:22)
[2023-06-28] MEDS: ATORVASTATIN 20 MG TAB PO SCH (21:22)
[2023-06-28] MEDS: PARoxetine HCL 20 MG TAB PO SCH (21:24)
[2023-06-28] MEDS ORDERED: CEFEPIME 1,000 MG in SYRINGE 0 ML IV SCH (22:00)
[2023-06-29 06:55] LABS: Basophils # (auto) 0.05 K/uL (0.00-0.20); Eosinophils # (auto) 0.29 K/uL (0.00-0.50); Eosinophils % (auto) 5.6 %; Hematocrit (blood only) 32.7 % (37.0-47.0); Hemoglobin 10.3 g/dl (12.0-16.0); Immature Granulocytes # (auto) 0.02 K/uL (0.01-0.20); Immature Granulocytes % (auto) 0.4 %; Lymphocytes # (auto) 0.87 K/uL (1.20-3.40); Lymphocytes % (auto) 16.7 %; Mean Corpuscular Hemoglobin 28.3 pg (25.0-34.0); Mean Corpuscular Hgb Conc 31.5 g/dL (32.0-36.0); Mean Corpuscular Volume 89.8 fL (80.0-100.0); Mean Platelet Volume 10.4 fL (9.4-12.4); Monocytes # (auto) 0.71 K/uL (0.11-0.59); Monocytes % (auto) 13.7 %; Neutrophils # (auto) 3.26 K/uL (1.40-6.50); Neutrophils % (auto) 62.6 %; Platelet Count 235 K/uL (130-400); RDW Coefficient of Variation 18.4 % (11.5-14.5); RDW Standard Deviation 59.7 fL (36.4-46.3); Red Blood Count 3.64 M/uL (4.20-5.40)
[2023-06-29 07:12] LABS: Albumin Level 3.5 gm/dl (3.4-5.0); BUN Creatinine Ratio 11.1 (10-20); Bilirubin Direct 0.2 mg/dl (0-0.2); Bilirubin,Total 0.7 mg/dl (0.2-1.0); Calcium 9.2 mg/dl (8.6-10.3); Creatinine Clr Calc Pharmacy 8.9 ml/min; Est GFR (Non-African American) 9.5 ml/min; Potassium 3.5 mmol/L (3.5-5.1); Total Protein 6.3 gm/dl (6.0-8.3)
[2023-06-29] MEDS: HEPARIN SOD 5,000 UNIT/0.5 ML VIAL SQ SCH (08:24)
[2023-06-29] MEDS: FLUTICASONE/VILANTEROL 200/25MCG 14 PUFFS/INHALER INH SCH (08:24)
[2023-06-29] MEDS: DOCUSATE SODIUM/SENNA 50/8.6MG TAB PO SCH (08:24)
[2023-06-29] MEDS: METOPROLOL TARTRATE 25 MG TAB PO SCH (08:25)
[2023-06-29] MEDS: ACETAMINOPHEN 325 MG TAB PO PRN (08:25)
[2023-06-29] MEDS ORDERED: FUROSEMIDE 20 MG TAB PO SCH (09:00)
--- NOTE | 2023-06-29 09:50 | Pulmonology Progress Note ---
Date of Service June 29, 2023 Assessment & Plan (1) Shortness of breath: (2) Hypoxia: (3) Pleural effusion: (4) Restrictive airway disease: (5) Tracheomalacia: (6) Multiple pulmonary nodules: (7) Asthma-COPD overlap syndrome: Plan IMPRESSION: 82-year-old female with an extensive past medical history who presents with complaints of worsening dyspnea on exertion from her baseline. RECOMMENDATIONS: 1. Dyspnea on exertion - Multifactorial in the frail-appearing 82-year-old kyphotic female with underlying cardiac valvular disease and asthma COPD overlap syndrome in the setting of recurrent pleural effusions. Acute on chronic episode likely related to reaccumulation of RIGHT-sided pleural effusion. Last drained on 06/09 by Pulmonary. Previously drained on 05/30 by IR. The patient may benefit from drainage of the effusion again as she has clinically improved after each thoracentesis. Patient underwent thoracentesis on 06/29 with drainage of 1500 mL. She is improved at this time and near her baseline. She can restart her Eliquis at this time. Moving forward, we will place an outpatient order for standing thoracentesis evaluation on a weekly basis until she is seen and completed her work-up with structural heart surgeons at the [facility]. I will plan on seeing her in the office the week of the and follow-up after this appointment. We will communicate with office staff about arranging change in follow-up appointment which is currently scheduled for 07/05. Otherwise, the patient would benefit from thoracentesis and can likely be discharged after that point. I do not see the utility in antibiotics in this patient who has no other clinical indices to suggest underlying infectious causes of her dyspnea and hypoxia. 2. Hypoxia - Again, multifactorial, but with worsening in the setting of return of RIGHT-sided effusion. Supplemental oxygen as needed. Patient stable and in no distress at this time. 3. Pleural effusion - Unremarkable pleural studies during previous thoracenteses. As above. 4. Restrictive airway disease - Noted on prior pulmonary function testing. Likely related to reaccumulation of pleural fluid. 5. Tracheomalacia - Appreciated during previous hospitalization with intubation. Patient did require positive pressure ventilation techniques at that time to help stent open airway. Would advocate for in lab sleep study given her fragile respiratory and cardiac state. This would assess for the need for positive airway pressure which certainly could be beneficial in a patient with underlying asthma COPD overlap syndrome as well as recurrent pleural effusions. 6. Multiple pulmonary nodules - They have appeared stable in the past. Thank you for allowing us to precipitate the care of this pleasant patient. Pulmonary medicine will sign off at this time. Patient is stable for discharge from a pulmonary perspective. Admission and Anticipated Discharge Date Admission Date: June 27, 2023 Subjective Patient seen and evaluated today. She had undergone thoracentesis with drainage of 1500 mL of pleural fluid. She feels as though she is breathing much better at this time, however she does feel tired. She reports that her breathing is back to its baseline. Review of Systems Review of Systems: A complete 10 point review of systems was reviewed with the patient with pertinent positives and negatives as per history of present illness. All else were negative. Physical Exam Physical Exam: VITAL SIGNS - Vital signs and nursing notes were reviewed. GENERAL - 82-year-old female appearing her stated age who is in no acute distress. Communicates well with provider and answers questions appropriately. LUNGS - Auscultation reveals decreased breath sounds at the RIGHT sided lung base. No wheezes or rales noted. CARDIAC - RRR with S1/S2. No murmur, rubs, or gallops appreciated. PSYCH - A&Ox3 and cooperates fully with examiner. Pt is very pleasant and interacts well with examiner. Results & Data Results & Data Vital Signs (Past 12 Hours) Vital Signs Temp Pulse Pulse Pulse Resp BP BP 06/29/23 08:20 36.5 C 66 16 164/84 H 06/29/23 07:32 57 L 06/29/23 07:26 06/29/23 04:45 36.5 C 55 L 18 158/66 H 06/29/23 00:09 06/28/23 22:20 59 L 06/28/23 22:15 36.5 C 59 L 16 148/64 H Pulse Ox O2 Del Method O2 Flow Rate 06/29/23 08:20 90 Nasal Cannula 2 06/29/23 07:32 06/29/23 07:26 Nasal Cannula 2 06/29/23 04:45 98 Nasal Cannula 2 06/29/23 00:09 Nasal Cannula 2 06/28/23 22:20 06/28/23 22:15 96 Room Air, Nasal Cannula 2 PG Care Time/CCT Total # of Minutes Spent Total Time Spent with Patient: Total time spent is greater than 50% in coordination of care (as documented) at patient's floor/unit and/or counseling patient: Coding Level of Care Code 19403 SUB INP/OBS CARE 2/35MIN Diagnoses Shortness of breath R06.02 Hypoxia R09.02 Pleural effusion J90 Restrictive airway disease J98.4 Tracheomalacia J39.8 Multiple pulmonary nodules R91.8 Asthma-COPD overlap syndrome J44.9
--- NOTE | 2023-06-29 10:07 | XRay Report ---
SINGLE VIEW CHEST CLINICAL HISTORY: Status post right-sided thoracentesis. FINDINGS: An AP upright chest radiograph is compared to study dated 06/27/2023 and correlated with [facility] st CT dated 04/21/2023. The heart is enlarged noting atherosclerotic calcification of the thoracic aor ta. There is pulmonary vascular congestion. Chronic interstitial thickening is similar to previous. T here are left larger than right pleural effusions with dependent consolidation. No pneumothorax is se en. The skeletal structures are osteopenic. The bony thorax is grossly intact. IMPRESSION: 1. No pneumothorax is identified post procedure. 2. Cardiomegaly with pulmonary vascular congestion. 3. Left larger than right pleural effusions with dependent consolidation. The right pleural effusion has significantly decreased in size from previous. ACT 112: Negative or not required by law. Electronically signed by: Tal Tejeda M.D. 06/29/2023 10:05 AM
--- NOTE | 2023-06-29 10:40 | Nephrology Progress Note ---
Date of Service June 29, 2023 Assessment & Plan (1) Stage 5 chronic kidney disease not on chronic dialysis: (2) Pleural effusion: (3) Anemia in CKD (chronic kidney disease): (4) SOB (shortness of breath): Plan 82 y o f with Stage 5 CKD, b/l cr 3.6-3.8, eGFR 10-12, unclear etiology for CKD ( presented late and never had biopsy with h/o thromboembolic disease and high risk to stop anticoagulant), admitted with progressive SOB, Hypoxia and recurrent right-sided pleural effusion. . Renal function stable at baseline, electrolyte acceptable. Has mature left BC AV fistula. Renal function slightly worsened, electrolyte acceptable. Getting right-sided thoracentesis. --Change diuretic down to Lasix 20 mg twice a day --continue calcitriol 0.5 mcg 3 times a week. --Epogen one dose given on 06/28/23 --avoid all NSAIDs, left arm nephrology precaution. -- Although slight change in kidney function noted, okay to be discharged from nephrology standpoint with repeat lab early next week. Admission and Anticipated Discharge Date Admission Date: June 27, 2023 Desiree Thomas was not in her room this morning as she was taken to IR for right-sided thoracentesis. Labs showed slight worsening of renal function while she received high-dose of IV diuretics. Results & Data Vital Signs (Past 12 Hours) Vital Signs Temp Pulse Pulse Pulse Resp BP BP 06/29/23 08:20 36.5 C 66 16 164/84 H 06/29/23 07:32 57 L 06/29/23 07:26 06/29/23 04:45 36.5 C 55 L 18 158/66 H 06/29/23 00:09 Pulse Ox O2 Del Method O2 Flow Rate 06/29/23 08:20 90 Nasal Cannula 2 06/29/23 07:32 06/29/23 07:26 Nasal Cannula 2 06/29/23 04:45 98 Nasal Cannula 2 06/29/23 00:09 Nasal Cannula 2 PG Care Time/CCT Total # of Minutes Spent Total Time Spent with Patient: Total time spent is greater than 50% in coordination of care (as documented) at patient's floor/unit and/or counseling patient: Coding Level of Care Code 19209 SUB INP/OBS CARE 2/35MIN Diagnoses Stage 5 chronic kidney disease not on chronic dialysis N18.5 Pleural effusion J90 Anemia in CKD (chronic kidney disease) N18.9; D63.1 SOB (shortness of breath) R06.02
--- NOTE | 2023-06-29 12:35 | Discharge Summary ---
Discharge Summary Date of Service June 29, 2023 Notes For Next Care Provider Will be getting weekly thoracenteses Medication Changes From Visit None Admission HPI Per Admitting Provider Martha is an 82-year-old female with PMH of of PEs, asthmaCOPD overlap syndrome, CKD stage V (not on dialysis), HFpEF, mitral regurgitation and, paroxysmal A- fib, mixed SNHL, and recurrent pleural effusions. She presented for worsening SOB since the night of 06/26. Her daughter (Maggie) is at the bedside and provides additional history. She reports that the SOB is with exertion, not at rest. It is worse when she lies flat. She has been sleeping in an adjustable bed. She uses supplemental oxygen at home as needed; 2L NC. No CPAP or BiPAP usage at night. She reports that she had a thoracentesis 2 to 3 weeks ago. She also reports that she is going to [place] for a RAE on Tuesday for a mitral valve clip. She took all of her morning medications, except Eliquis (in case she needed that have a second thoracentesis). She denies history of smoking, tobacco use; minimal alcohol usage. Patient ambulates with a walker at baseline. She exhibits mild bradycardia at 54 bpm at time of admission; SPO2 93% on RA while at rest; vitals otherwise stable. ROS: Patient endorses RIVAS. Patient denies headache, dizziness, lightheadedness, fever, chest pain, SOB at rest, abdominal pain, N/V, urinary symptoms, or numbness or tingling going down the legs Principal Dx & Hospital Course #1 = Principal Diagnosis (1) RIVAS (dyspnea on exertion): Acute on chronic Worsening RIVAS since the night of 06/26; dropping into the 80-89% SpO2 range with exertion Likely secondary to recurrent pleural effusion from acute on chronic HFpEF from severe MR Hx of [facility] admission on 06/06 for similar episode of RIVAS requiring thoracentesis Hx of [facility] admission on 04/21 for progressive hypoxia requiring intubation CXR revealed right larger than left pleural effusion with dependent consolidation Elevated BNP at 2929 Held Eliquis and had thoracentesis for 1500mL on 06/29 with significant improvement in symptoms afterwards Was given IV lasix 40mg bid and had slight rise in sock knitter to 4.1 ok to resume home po lasix 20mg p.o. BID Pulmonology consult appreciated--> plan for once weekly thoracenteses with IR until valve repair possibly performed which may help issue. Not ready for dialysis yet no antibiotics needed (2) Pressure ulcer of lower extremity, stage 3: Chronic; since March 2023 Patient follows with wound care clinic outpatient; not currently on abx outpatient No sign of drainage, erythema, or swelling on exam Redress wound daily and paint with betadine family requesting arterial Doppler be done here as was scheduled as outpt anyway--> wa snormal. She also has palpable pulses on feet on physical examination (3) Stage 5 chronic kidney disease not on chronic dialysis: sock knitter at baseline 3.7 Avoid nephrotoxic agents Follows with nephrology, has mature left BC AV fistula if needed Nephrology consulted follow BMP as outpt with slight rise in sock knitter as above (4) Paroxysmal atrial fibrillation: in sinus rhythm here Continue metoprolol, amlodipine ok to resume eliquis after discharge (5) Elevated troponin I level: Troponin 29.8 --> 37.5 Based on prior admissions, may be chronic/stable Clinically, patient denies chest pain (6) Heart failure with preserved ejection fraction: Last echo on 05/16/2023 revealed LVEF at 60-65%, mod-severe MR Plan Disposition:dc to home, doing well, ambulating independently Discharge Exam Constitutional WD/WN, vitals as above Respiratory normal respiratory effort; no cough Auscultation: + diminished lung sounds (right lower lung field); no crackles and no wheezes Cardiovascular Rate/Rhythm: regular rate and regular rhythm Heart Sounds: + murmur (3/6 holosystolic murmur at apex) Extremities: no edema Updated Medication List Medication Instructions Recorded Confirmed Type aspirin 81 mg tablet,delayed 81 mg PO HS 07/02/19 06/27/23 History release (Adult Low Dose Aspirin) meclizine 12.5 mg tablet 12.5 mg PO TID PRN dizziness #30 06/10/22 06/27/23 Rx tabs sennosides 8.6 mg-docusate sodium 1 tab PO BID #60 tabs 08/19/22 06/27/23 Rx 50 mg tablet (Senokot-S) metoprolol tartrate 25 mg tablet 12.5 mg (1/2 x 25 mg) PO BID #90 10/04/22 06/27/23 Rx tabs atorvastatin 20 mg tablet 20 mg PO HS #90 tabs 11/10/22 06/27/23 Rx albuterol sulfate 90 mcg/actuation 2 puff inhalation Q6H PRN 11/24/22 06/27/23 Rx aerosol inhaler Shortness Of Breath Or Wheezing #18 grams budesonide-formoterol HFA 160 2 puff inhalation BID #10.2 grams 11/24/22 06/27/23 Rx mcg-4.5 mcg/actuation aerosol inhaler (Symbicort) ipratropium 0.5 mg-albuterol 3 mg 3 ml inhalation Q2H PRN shortness 11/24/22 06/27/23 Rx (2.5 mg base)/3 mL nebulization of breath or wheezing #180 mL soln calcitriol 0.5 mcg capsule 0.5 mcg PO 3XWK #45 caps 12/02/22 06/27/23 Rx cyanocobalamin (vitamin B-12) 1,000 mcg PO DAILY #90 caps 12/22/22 06/27/23 Rx 1,000 mcg capsule apixaban 2.5 mg tablet (Eliquis) 2.5 mg PO BID #180 tabs 01/31/23 06/27/23 Rx epoetin kole 40,000 unit/mL 40,000 unit subcut .q2w 60 days #4 02/15/23 06/27/23 Rx injection solution mL fluticasone propionate 50 2 spray intranasal DAILY PRN 04/21/23 06/27/23 History mcg/actuation nasal allergies spray,suspension (Allergy Relief (fluticasone)) furosemide 20 mg tablet 20 mg PO BID 04/21/23 06/27/23 History polyethylene glycol 3350 17 gram 17 g PO DAILY PRN Constipation 04/21/23 06/27/23 History oral powder packet (Miralax) amiodarone 200 mg tablet 200 mg PO QPM 05/12/23 06/27/23 History Over Night Pulse OX #1 ea 05/23/23 06/24/23 Rx Oxygen Home #1 ea 05/23/23 06/24/23 Rx lorazepam 0.5 mg tablet 0.25 - 0.5 mg (0.5 - 1 x 0.5 mg) 05/31/23 06/27/23 Rx PO HS PRN anxiety/insomnia #30 tabs paroxetine HCl 40 mg tablet 40 mg PO HS #90 tabs 06/29/23 Rx Hospital Stay Data Consultations 06/27/23 18:58 ED Decision to Admit Stat 06/27/23 22:22 Consult Nephrology Routine Consult Pulmonology Routine Diagnostic Imagining Performed 06/28/23 14:18 US arterial duplex LE RT Routine 06/29/23 00:00 IR thoracentesis wo tube US Routine Pending Results Patient Have Any Pending Studies at Discharge: No Discharge Instructions Given to Patient (Per Discharging Provider) You were admitted with shortness of breath from your recurrent pleural effusion. You had a thoracentesis and had improvement. You will be set up to have once weekly thoracentesis as an outpatient so you don't have to come to the ER frequently for this in the future. Your kidney function went down slightly with receiving IV lasix but Dr. Rivas was not overly concerned and wants you to return to taking your usual lasix 20mg twice a day and have labs next week and follow up in Nephrology clinic as scheduled. Your arterial Doppler ultrasound of the right lower extremity did not show any blockages of the arteries. Please continue to follow up with Wound Care. You can resume your Eliquis this evening. Total Time Total Time Spent Total Time Spent (In Minutes): 40 min Total Time Includes: Examination of the Patient, Discharge Planning, Medication Reconciliation and Communication With Other Providers (Duncan Henriquez PA-C) Coding Level of Care Code 82389 INP/OBS DISCH >30 MIN Diagnoses RIVAS (dyspnea on exertion) R06.09 Pressure ulcer of lower extremity, stage 3 L89.893 Stage 5 chronic kidney disease not on chronic dialysis N18.5 Paroxysmal atrial fibrillation I48.0 Elevated troponin I level R79.89 Heart failure with preserved ejection fraction I50.30
--- NOTE | 2023-06-29 13:47 | Ultrasound Report ---
Ultrasound-guided right thoracentesis INDICATION: Right pleural effusion PROCEDURE: Procedure and risks were explained. Informed consent was obtained. A final timeout was com pleted. The right posterior thorax was prepped and draped in sterile fashion. 1% buffered lidocaine w as utilized for skin anesthesia. Utilizing ultrasound guidance, a 5 [place] safety centesis catheter was advanced into the right pleura l effusion. Ultrasound images were obtained. 1500 mL of pleural fluid was removed and discarded. The catheter was removed and Band-Aid applied. The patient tolerated the procedure well. A chest x-ray wi ll be obtained post procedure. IMPRESSION: Ultrasound-guided right thoracentesis as above. Performed, dictated, and signed by Carlos Araujo PA-C; to be co-signed by Dr. Real Powell. Electronically signed by: Real Powell M.D. 06/29/2023 6:54 PM
== END 2023-06-29 13:46 | disposition home health service (06) | DRG 291 ==
LOC: ED 12:33 → SUATTDRO 20:51 → INTOOBSV 20:51 → EDINP 20:51 → OBSVTOIN 20:51 → 2N 22:19

== ENCOUNTER 2023-08-29 18:20 | Observation (INO) ==
[2023-08-29 21:04] LABS: Basophils # (auto) 0.05 K/uL (0.00-0.20); Basophils % (auto) 0.5 %; Eosinophils # (auto) 0.25 K/uL (0.00-0.50); Eosinophils % (auto) 2.5 %; Hemoglobin 10.5 g/dl (12.0-16.0); Immature Granulocytes # (auto) 0.03 K/uL (0.01-0.20); Immature Granulocytes % (auto) 0.3 %; Lymphocytes # (auto) 0.68 K/uL (1.20-3.40); Lymphocytes % (auto) 6.9 %; Mean Corpuscular Hemoglobin 27.3 pg (25.0-34.0); Mean Corpuscular Hgb Conc 30.9 g/dL (32.0-36.0); Mean Corpuscular Volume 88.5 fL (80.0-100.0); Mean Platelet Volume 9.5 fL (9.4-12.4); Monocytes # (auto) 0.86 K/uL (0.11-0.59); Monocytes % (auto) 8.8 %; Neutrophils # (auto) 7.95 K/uL (1.40-6.50); Platelet Count 287 K/uL (130-400); RDW Coefficient of Variation 17.2 % (11.5-14.5); RDW Standard Deviation 55.8 fL (36.4-46.3); Red Blood Count 3.84 M/uL (4.20-5.40); White Blood Count 9.82 K/ul (4.8-10.8)
[2023-08-29 21:20] LABS: Alanine Aminotransferase 42 U/L (7-52); Albumin Globulin Ratio 1.2 (0.9-2); Albumin Level 3.6 gm/dl (3.4-5.0); Alkaline Phosphatase 76 U/L (34-104); Anion Gap 8 (3-11); Aspartate Aminotransferase 31 U/L (13-39); BUN Creatinine Ratio 14.8 (10-20); Bilirubin,Total 0.7 mg/dl (0.2-1.0); Blood Urea Nitrogen 54 mg/dl (6-23); Calcium 8.9 mg/dl (8.6-10.3); Carbon Dioxide 28 mmol/L (21-32); Chloride 98 mmol/L (98-107); Est GFR (African American) 12.8 ml/min; Glucose 116 mg/dl (70-99(Fasting)); Potassium 4.2 mmol/L (3.5-5.1); Sodium 134 mmol/L (136-145); Total Protein 6.6 gm/dl (6.0-8.3)
[2023-08-29 21:25] LABS: Troponin I High Sensitivity 23.1 pg/ml (0-14)
[2023-08-29 21:28] LABS: Partial Thromboplastin Time 29 Seconds (21-31); Prothrombin Time 11.2 Seconds (9.0-12.0)
--- NOTE | 2023-08-29 23:08 | Emergency Department Note ---
Impression & Plan Acute on chronic respiratory failure with hypoxia, Recurrent pleural effusion ED Provider Note NAME: JAZMÍN CARPENTER AGE: 83 SEX: F : 1940 ARRIVES VIA: Walk-In INFORMANT: Patient, ED PROVIDER(S): Fabiana Malhotra MD CHIEF COMPLAINT: Shortness of breath HPI: This is an 83-year-old female with history of recurrent pleural effusions, CKD taking for shortness of breath. Patient has a Pleurx catheter in the right lung. Patient usually gets 600 to 1 L out fluid every 3 days. Patient was drained today and only had 200 out. Patient sent here after increasing shortness of breath at the request of her nurse. Patient notes that on Tuesday when she had her last drainage she only got about 5 to 600 mL. Arrival patient is requiring oxygen. She has increased shortness of breath. Difficulty with walking due to the shortness of breath. No fevers or chills. No nausea or vomiting. No chest pain ROS: See above HPI for pertinent positives & negatives. A total of 10 systems reviewed and were otherwise negative. PAST MEDICAL HISTORY: See Below PAST SURGICAL HISTORY: See Below FAMILY HISTORY: See Below SOCIAL HISTORY: See Below HOME MEDICATIONS: See Below ALLERGIES: See Below VITALS: See Below PHYSICAL EXAMINATION: General: resting comfortably in no acute distress Head: Normocephalic and atraumatic Eyes: Normal inspection, extraocular muscles intact Ear, nose, throat: Normal external exam Neck: Normal range of motion Respiratory: Diminished/crackles at the right lung base Cardiovascular: Regular rate/rhythm, no murmur GI: soft, nontender, no guarding or rebound Extremities: nontender, moves all extremities Neuro: The patient awake and alert, appropriately conversive, no focal deficits, symmetric faces Skin: Warm, dry, and intact MEDICAL DECISION MAKING: This is an 83-year-old female with history of recurrent pleural effusion status post Pleurx catheter, CKD presenting for shortness of breath. Patient extremities likely clogged/malfunctioning Pleurx catheter. Patient is here with her daughter who feels uncomfortable with discharge to outpatient follow-up due to patient's current clinical status requiring oxygen. I believe this is appropriate acute the patient in the hospital for adjustment of catheter/drainage. Will do CT imaging at the request of on-call information technology assistant to assess for better etiology. Other patient is requiring nasal cannula at this time, does appears moderately short of breath. -No significant electrolyte disturbances, creatinine is significant elevated at above 3. Will defer any contrast at this time. Viral panel is negative here. -CT of the chest does reveal pleural effusion bilateral with right greater than left. Concerning for multifocal pneumonia as well. While on cefepime. -Case discussed with on-call information technology assistant, Dr. Dutton who will see the patient in consultation tomorrow. -Chest x-ray as independently read by me initially shows pleural effusions bilaterally, pulm vascular congestion. Radiology overread in the a.m. revealed small apical pneumothorax. Differential diagnosis: Pneumonia, pleural effusion, catheter malfunction ER treatment provided: See below Diagnostics interpreted by me: ECG: ECG independently interpreted by me with sinus bradycardia, rate of 57,, first-degree AV block, normal QRS, normal QTc, no ST segment elevations consistent with STEMI criteria] Cardiac Monitoring: An order was placed for continuous cardiac monitoring. The monitor shows a rate of 60 with sinus rhythm. Laboratory studies: As stated above and show below. Imaging studies: See below. Past Med/Surg History Medical History (Updated 08/30/23 @ 14:19 by Fabiana Malhotra MD) Bilateral pleural effusion Chronic kidney disease, stage V no dialysis; f/u dr. tinsley COPD (chronic obstructive pulmonary disease) Rheumatoid arthritis Slow to wake up after anesthesia happened once time Hx of vertigo "none for quite some time, occurred when taking sulfa for her bladder problems" Mitral regurgitation Acute respiratory failure with hypoxia hx-hospitalized 04/21/23 @[facility] Restrictive lung disease daily inh, inh and neb prn Paroxysmal atrial fibrillation Pleural effusion Acute on chronic diastolic CHF (congestive heart failure) recently hospitalized @[facility] on 04/21/23 Chronic anticoagulation Atrial fibrillation with rapid ventricular response currently on eliquis; f/u dr[place] 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 Surgical History (Updated 08/18/23 @ 16:08 by Ephraim Espinoza LPN) H/O surgical biopsy 08/18/2023 non-healing lesion left cheek History of esophagogastroduodenoscopy (EGD) Hx of colonoscopy Hx of vein stripping Hx of hysterectomy Family History Mother Blood clot in vein Father Myocardial infarction Sister Blood clot in vein Breast cancer Aunt Blood clot in vein Son Prostate cancer Denies family history of Ovarian cancer Colorectal cancer Social History Smoking Status: Never smoker Second Hand Exposure: Yes (hx growing up); Do You Dip or Chew Tobacco: No; Hx Alcohol Use: No Hx Substance Use: No Preferred Language: [place] Citizen Communication Ability: Effective Visual Impairment: Limited Hearing Ability: Use of Hearing Aid Erp Business Analyst Required: No Beliefs That Will Affect Care: None marital status: / Current Living Situation: Family Current Living Situation Comment: Lives at home with family stopping in multiple times a day current occupational status: retired 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 How many Children do You have: 3 How many Children do You have Comment: Sons work close and assist pt with meals Feels Safe at Home: Yes Childhood Exposure to Second-Hand Smoke: Yes Diet: regular caffeine: No Dental Care, Regularly: Yes Physical Activity Frequency: Does not Exercise Seatbelt Use: always Sunscreen Use: Yes Assistive Devices: Oxygen - Continuous, Walker and Other Allergies Allergies Allergy/AdvReac Type Severity Reaction Status Date / Time Sulfa (Sulfonamide AdvReac Intermediate HEADACHE, Verified 08/18/23 13:28 Antibiotics) VERTIGO adhesive AdvReac skin tears Verified 08/18/23 13:28 Home Meds Home Medications Medication Instructions Recorded Confirmed aspirin 81 mg tablet,delayed 81 mg PO HS 07/02/19 08/30/23 release (Adult Low Dose Aspirin) polyethylene glycol 3350 17 gram 17 g PO DAILY PRN Constipation 04/21/23 08/30/23 oral powder packet (Miralax) amiodarone 200 mg tablet 200 mg PO QPM 05/12/23 08/30/23 isosorbide mononitrate 30 mg 30 mg PO QAM 08/18/23 08/30/23 tablet,extended release 24 hr cyanocobalamin (vitamin B-12) 1,000 mcg PO QAM 08/30/23 08/30/23 1,000 mcg capsule melatonin 10 mg tablet 10 mg PO HS 08/30/23 08/30/23 Previous Rx's Medication Instructions Recorded sennosides 8.6 mg-docusate sodium 1 tab PO BID #60 tabs 08/19/22 50 mg tablet (Senokot-S) metoprolol tartrate 25 mg tablet 12.5 mg (1/2 x 25 mg) PO BID #90 10/04/22 tabs atorvastatin 20 mg tablet 20 mg PO HS #90 tabs 11/10/22 albuterol sulfate 90 mcg/actuation 2 puff inhalation Q6H PRN 11/24/22 aerosol inhaler Shortness Of Breath Or Wheezing #18 grams budesonide-formoterol HFA 160 2 puff inhalation BID #10.2 grams 11/24/22 mcg-4.5 mcg/actuation aerosol inhaler (Symbicort) ipratropium 0.5 mg-albuterol 3 mg 3 ml inhalation Q2H PRN shortness 11/24/22 (2.5 mg base)/3 mL nebulization of breath or wheezing #180 mL soln calcitriol 0.5 mcg capsule 0.5 mcg PO 3XWK #45 caps 12/02/22 apixaban 2.5 mg tablet (Eliquis) 2.5 mg PO BID #180 tabs 01/31/23 epoetin kole 40,000 unit/mL 40,000 unit subcut .q2w 60 days #4 02/15/23 injection solution mL Over Night Pulse OX #1 ea 05/23/23 Oxygen Home #1 ea 05/23/23 paroxetine HCl 40 mg tablet 40 mg PO HS #90 tabs 06/29/23 lorazepam 0.5 mg tablet 0.25 - 0.5 mg (0.5 - 1 x 0.5 mg) 07/06/23 PO HS PRN anxiety/insomnia #30 tabs furosemide 20 mg tablet 20 mg PO BID #180 tabs 08/08/23 oxycodone-acetaminophen 5 mg-325 0.5 - 1 tab PO BID PRN pain #30 08/18/23 mg tablet tabs Results & Data (ED) Vital Signs Vital Signs - 24 hr 08/29/23 19:24 08/29/23 21:41 08/29/23 21:59 Temperature 36.8 C Temperature Source Temporal Artery Scan Pulse Rate 56 L 62 Pulse Rate [Apical] 59 L Pulse Rhythm Pulse Rhythm [Apical] Regular Pulse Strength [Apical] Normal Respiratory Rate 20 18 Respiratory Effort / Characteristics Short of Breath Respiratory Depth Normal Respiratory Pattern Regular Blood Pressure 146/52 H Blood Pressure [Right Arm] 145/108 H Blood Pressure Mean 83 Blood Pressure Mean [Right Arm] 120 Blood Pressure Position [Right Arm] Lying Pulse Oximetry 91 100 Oxygen Delivery Method Nasal Cannula Nasal Cannula Oxygen Flow Rate 4 4 Sepsis Recent Fever Within 48 Hours No Sepsis New/Unexplained Change in Mental Status No Sepsis Action Taken by Nursing No Action Required 08/29/23 22:01 08/29/23 23:43 Temperature Temperature Source Pulse Rate 59 L Pulse Rate [Apical] 60 Pulse Rhythm Regular Pulse Rhythm [Apical] Pulse Strength [Apical] Respiratory Rate 18 18 Respiratory Effort / Characteristics Non-Labored Respiratory Depth Normal Respiratory Pattern Regular Blood Pressure Blood Pressure [Right Arm] 135/91 Blood Pressure Mean Blood Pressure Mean [Right Arm] 105 Blood Pressure Position [Right Arm] Lying Pulse Oximetry 100 99 Oxygen Delivery Method Nasal Cannula Nasal Cannula Oxygen Flow Rate 4 4 Sepsis Recent Fever Within 48 Hours Sepsis New/Unexplained Change in Mental Status Sepsis Action Taken by Nursing Laboratory Data 08/30/23 03:29 08/30/23 03:29 Lab Results 08/29/23 08/29/23 08/29/23 Range/Units 20:45 23:13 23:39 WBC 9.82 (4.8-10.8) K/ul RBC 3.84 L (4.20-5.40) M/uL Hgb 10.5 L (12.0-16.0) g/dl Hct 34.0 L (37.0-47.0) % MCV 88.5 (80.0-100.0) fL MCH 27.3 (25.0-34.0) pg MCHC 30.9 L (32.0-36.0) g/dL RDW Std Deviation 55.8 H (36.4-46.3) fL RDW Coeff of Alice 17.2 H (11.5-14.5) % Plt Count 287 (130-400) K/uL MPV 9.5 (9.4-12.4) fL Immature Gran % (Auto) 0.3 % Neut % (Auto) 81.0 % Lymph % (Auto) 6.9 % Bucks % (Auto) 8.8 % Eos % (Auto) 2.5 % Baso % (Auto) 0.5 % Neut # (Auto) 7.95 H (1.40-6.50) K/uL Lymph # (Auto) 0.68 L (1.20-3.40) K/uL Bucks # (Auto) 0.86 H (0.11-0.59) K/uL Eos # (Auto) 0.25 (0.00-0.50) K/uL Baso # (Auto) 0.05 (0.00-0.20) K/uL Immature Gran # (Auto) 0.03 (0.01-0.20) K/uL PT 11.2 (9.0-12.0) Seconds INR 1.0 (0.9-1.1) APTT 29 (21-31) Seconds PTT Ratio 1.0 Sodium 134 L (136-145) mmol/L Potassium 4.2 (3.5-5.1) mmol/L Chloride 98 (98-107) mmol/L Carbon Dioxide 28 (21-32) mmol/L Anion Gap 8 (3-11) BUN 54 H (6-23) mg/dl Creatinine 3.65 H (0.6-1.2) mg/dl Est Cr Clr Drug Dosing Not Reportable Est GFR ( Amer) 12.8 ml/min Est GFR (Non-Af Amer) 11.0 ml/min BUN/Creatinine Ratio 14.8 (10-20) Glucose 116 H (70-99(Fasting)) mg/dl Calcium 8.9 (8.6-10.3) mg/dl Total Bilirubin 0.7 (0.2-1.0) mg/dl AST 31 (13-39) U/L ALT 42 (7-52) U/L Alkaline Phosphatase 76 (34-104) U/L Troponin I High Sens 23.1 H 23.8 H (0-14) pg/ml Total Protein 6.6 (6.0-8.3) gm/dl Albumin 3.6 (3.4-5.0) gm/dl Globulin 3.0 (2.5-4.0) gm/dl Albumin/Globulin Ratio 1.2 (0.9-2) Adenovirus (PCR) Not Detected (NotDetected) B. pertussis DNA (PCR) Not Detected (NotDetected) B.parapertussis DNA PCR Not Detected (NotDetected) C. pneumoniae DNA (PCR) Not Detected (NotDetected) Coronavirus OC43 (PCR) Not Detected (NotDetected) Coronavirus HKU1 (PCR) Not Detected (NotDetected) Coronavirus 229E (PCR) Not Detected (NotDetected) SARS-CoV-2 (PCR) Not Detected (NotDetected) Coronavirus NL63 (PCR) Not Detected (NotDetected) Human Metapneumovir PCR Not Detected (NotDetected) Influenza Type A (PCR) Not Detected (NotDetected) Influenza Type B (PCR) Not Detected (NotDetected) M. pneumoniae (PCR) Not Detected (NotDetected) Parainfluenza 1 (PCR) Not Detected (NotDetected) Parainfluenza 2 (PCR) Not Detected (NotDetected) Parainfluenza 3 (PCR) Not Detected (NotDetected) Parainfluenza 4 (PCR) Not Detected (NotDetected) RSV (PCR) Not Detected (NotDetected) Entero/Rhino (PCR) Not Detected (NotDetected) Administered Medications Discontinued Medications Cyanocobalamin (Cyanocobalamin (B-12) 500 Mcg Tablet) 1,000 mcg PO DAILY NATHALIA Stop: 09/29/23 08:59 Last Admin: 08/30/23 08:47 Dose: 1,000 mcg Documented By: HS Fluticasone/Vilanterol (Fluticasone/Vilanterol 200/25mcg 14 Puffs/Inhaler) 1 puffs INH DAILY NATHALIA Stop: 09/29/23 08:59 Last Admin: 08/30/23 08:47 Dose: 1 puffs Documented By: HS Furosemide (Furosemide 40 Mg/4 Ml Vial) 40 mg IV ONE ONE Stop: 08/29/23 23:45 Last Admin: 08/30/23 00:07 Dose: 40 mg Documented By: AAW Furosemide (Furosemide 20 Mg Tab) 20 mg PO BID17 NATHALIA Stop: 09/29/23 10:14 Last Admin: 08/30/23 11:03 Dose: 20 mg Documented By: DRAKE Cefepime HCl (Maxipime) 2,000 mg in 20 mls @ 5 mls/min IV [facility]; Protocol Stop: 08/30/23 00:45 Last Admin: 08/30/23 01:02 Dose: 5 mls/min Documented By: OTTONIEL Isosorbide Mononitrate (Isosorbide Bucks Extended Rel 30 Mg Tabcr) 30 mg PO DAILY NATHALIA Stop: 09/29/23 08:59 Last Admin: 08/30/23 08:47 Dose: 30 mg Documented By: HS Metoprolol Tartrate (Metoprolol Tartrate 25 Mg Tab) 12.5 mg PO BID [facility] Stop: 09/29/23 08:59 Last Admin: 08/30/23 08:47 Dose: 12.5 mg Documented By: DRAKE Miscellaneous (Patient's Height &/Or Weight Needed) 1 each N/A [facility] Stop: 08/30/23 05:41 Last Admin: 08/30/23 08:46 Dose: 1 each Documented By: DRAKE Senna/Docusate Sodium (Docusate Sodium/Senna 50/8.6mg Tab) 1 tab PO BID [facility] Stop: 09/29/23 08:59 Last Admin: 08/30/23 08:47 Dose: 1 tab Documented By: DRAKE Imaging Data Radiologist's Impression: Chest X-Ray 08/29/23 19:35 XR chest 1V not portable HISTORY: 83 years-old Female Chest pain, nonspecific COMPARISON: Chest CT of same day TECHNIQUE: AP view of the chest FINDINGS: Cardiac silhouette is enlarged. Right basilar pleural catheter. Small right apical pneumothorax with pleural separation of 11 mm (hydropneumothorax). Moderate-sized layering pleural effusions with bibasilar consolidation. Pulmonary edema. Bones appear grossly intact. IMPRESSION: 1. Cardiomegaly with pulmonary edema, moderate pleural effusions with bibasilar consolidation. 2. Right basilar pleural catheter in place with small right apical pneumothorax. ACT 112: Negative or not required by law. The above report was generated using voice recognition software. It may contain grammatical, syntax or spelling errors. Electronically signed by: Melo Muse M.D. 08/30/2023 6:37 AM Discharge Plan Visit Data Chief Complaint: Shortness of Breath/Dyspnea Stated Complaint: CATH IN LUNG ED Provider: Fabiana Malhotra Discharge Problem: Acute on chronic respiratory failure with hypoxia, Recurrent pleural effusion Patient Disposition: Admitted As Inpatient Discharge Instructions Interventions: ED Discharge Assessment Last Done: 08/30/23 02:17
--- NOTE | 2023-08-29 23:52 | History & Physical Report ---
Date of Service August 29, 2023 Assessment & Plan (1) Acute on chronic respiratory failure with hypoxia: (2) Recurrent pleural effusion: (3) Heart failure with preserved ejection fraction: (4) Pneumonia: (5) CKD (chronic kidney disease): (6) Pressure ulcer of right leg, unstageable: (7) Hx of pulmonary embolus: (8) Asthma-COPD overlap syndrome: (9) Hypertension: (10) Paroxysmal atrial fibrillation: (11) Chronic kidney disease, stage V: (12) Chronic anticoagulation: Plan Acute on chronic respiratory failure hypoxia/multilobular pneumonia/HFpEF exacerbation/pleural effusions with malfunctioning right Pleurx catheter- Admit to monitored bed CT scan of chest without contrast: Dependent airspace consolidations, concerning for multilobar pneumonia. Moderate bilateral pleural effusions right greater than left. Indwelling right chest tube Multi lobar pneumonia/COPD- Treated as healthcare associated MRSA swab Cefepime 2 g IV every 12 hours Continue albuterol sulfate, budesonide-formoterol HFA, Duonebs every 4 hours while awake and every 2 hours when necessary. HFpEF exacerbation/pleural effusions with malfunctioning right Pleurx catheter/atrial fibrillation/hypertension- CT scan showing bilateral pleural effusions right greater than left Give Lasix 40 mg IV x 1 this evening Continue amiodarone,isosorbide mononitrate, metoprolol to tartrate Consults to pulmonology to reassess Pleurx catheter in the a.m. Hold apixaban and aspirin for now CKD stage V not on dialysis- Creatinine 3.65 on admission with range 3.401-4.15 Follow serially Right lower extremity wound- Has been fit with Unna boot and [place] [facility] If remains in the hospital longer than time needed to change Unna boot, will consult wound care History of Present Illness Chief Complaint: The patient presents to the emergency department with her daughter, due to concerns regarding her Pleurx catheter in the left lung only drained for 200 cc this morning by nursing Primary Care Provider: Soledad Meier MD The patient is an 83-year-old female with a past medical history including recurrent pleural effusion, stage 5 CKD not on dialysis, right leg pressure ulcer, restrictive airway disease, history of PE, asthma-COPD overlap syndrome, long-term anticoagulant use, hypertension, history of SVT, HFpEF, paroxysmal atrial fibrillation, hearing loss, and recurrent UTI. The patient presents to the emergency department with her daughter, after nursing attempted to drain Pleurx catheter of right lung this morning only drained 200 cc. Patient has been chronically short of breath, but has not noted any particular changes recently, although her physical activity level is relatively low. Allergies Allergy/AdvReac Type Severity Reaction Status Date / Time Sulfa (Sulfonamide AdvReac Intermediate HEADACHE, Verified 08/18/23 13:28 Antibiotics) VERTIGO adhesive AdvReac skin tears Verified 08/18/23 13:28 Home Medications Medication Instructions Recorded Confirmed Type aspirin 81 mg tablet,delayed 81 mg PO HS 07/02/19 08/30/23 History release (Adult Low Dose Aspirin) sennosides 8.6 mg-docusate sodium 1 tab PO BID #60 tabs 08/19/22 08/30/23 Rx 50 mg tablet (Senokot-S) metoprolol tartrate 25 mg tablet 12.5 mg (1/2 x 25 mg) PO BID #90 10/04/22 08/30/23 Rx tabs atorvastatin 20 mg tablet 20 mg PO HS #90 tabs 11/10/22 08/30/23 Rx albuterol sulfate 90 mcg/actuation 2 puff inhalation Q6H PRN 11/24/22 08/30/23 Rx aerosol inhaler Shortness Of Breath Or Wheezing #18 grams budesonide-formoterol HFA 160 2 puff inhalation BID #10.2 grams 11/24/2208/30 Rx mcg-4.5 mcg/actuation aerosol inhaler (Symbicort) ipratropium 0.5 mg-albuterol 3 mg 3 ml inhalation Q2H PRN shortness 11/24/22 08/30/23 Rx (2.5 mg base)/3 mL nebulization of breath or wheezing #180 mL soln calcitriol 0.5 mcg capsule 0.5 mcg PO 3XWK #45 caps 12/02/22 08/30/23 Rx apixaban 2.5 mg tablet (Eliquis) 2.5 mg PO BID #180 tabs 01/31/23 08/30/23 Rx epoetin kole 40,000 unit/mL 40,000 unit subcut .q2w 60 days #4 02/15/23 08/30/23 Rx injection solution mL polyethylene glycol 3350 17 gram 17 g PO DAILY PRN Constipation 04/21/23 08/30/23 History oral powder packet (Miralax) amiodarone 200 mg tablet 200 mg PO QPM 05/12/23 08/30/23 History Over Night Pulse OX #1 ea 05/23/23 08/30/23 Rx Oxygen Home #1 ea 05/23/23 08/30/23 Rx paroxetine HCl 40 mg tablet 40 mg PO HS #90 tabs 06/29/23 08/30/23 Rx lorazepam 0.5 mg tablet 0.25 - 0.5 mg (0.5 - 1 x 0.5 mg) 07/06/23 08/30/23 Rx PO HS PRN anxiety/insomnia #30 tabs furosemide 20 mg tablet 20 mg PO BID #180 tabs 08/08/23 08/30/23 Rx isosorbide mononitrate 30 mg 30 mg PO QAM 08/18/23 08/30/23 History tablet,extended release 24 hr oxycodone-acetaminophen 5 mg-325 0.5 - 1 tab PO BID PRN pain #30 08/18/23 08/30/23 Rx mg tablet tabs cyanocobalamin (vitamin B-12) 1,000 mcg PO QAM 08/30/23 08/30/23 History 1,000 mcg capsule melatonin 10 mg tablet 10 mg PO HS 08/30/23 08/30/23 History Past Med/Surg History Medical History (Updated 08/30/23 @ 05:35 by Erich Araya MD) Chronic kidney disease, stage V no dialysis; f/u dr. tinsley COPD (chronic obstructive pulmonary disease) Rheumatoid arthritis Slow to wake up after anesthesia happened once time Hx of vertigo "none for quite some time, occurred when taking sulfa for her bladder problems" Mitral regurgitation Acute respiratory failure with hypoxia hx-hospitalized 04/21/23 @[facility] Restrictive lung disease daily inh, inh and neb prn Paroxysmal atrial fibrillation Pleural effusion Acute on chronic diastolic CHF (congestive heart failure) recently hospitalized @[facility] on 04/21/23 Chronic anticoagulation Atrial fibrillation with rapid ventricular response currently on eliquis; [place] dr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 Surgical History (Updated 08/18/23 @ 16:08 by Ephraim Espinoza LPN) H/O surgical biopsy 08/18/2023 non-healing lesion left cheek History of esophagogastroduodenoscopy (EGD) Hx of colonoscopy Hx of vein stripping Hx of hysterectomy Family History Mother Blood clot in vein Father Myocardial infarction Sister Blood clot in vein Breast cancer Aunt Blood clot in vein Son Prostate cancer Denies family history of Ovarian cancer Colorectal cancer Social History Smoking Status: Never smoker Second Hand Exposure: Yes (hx growing up); Do You Dip or Chew Tobacco: No; Hx Alcohol Use: No Hx Substance Use: No Preferred Language: Mosotho Communication Ability: Effective Visual Impairment: Limited Hearing Ability: Use of Hearing Aid Safety Deposit Clerk Required: No Beliefs That Will Affect Care: None marital status: / Current Living Situation: Family Current Living Situation Comment: Lives at home with family stopping in multiple times a day current occupational status: retired 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 How many Children do You have: 3 How many Children do You have Comment: Sons work close and assist pt with meals Feels Safe at Home: Yes Childhood Exposure to Second-Hand Smoke: Yes Diet: regular caffeine: No Dental Care, Regularly: Yes Physical Activity Frequency: Does not Exercise Seatbelt Use: always Sunscreen Use: Yes Assistive Devices: Walker Review of Systems Review of Systems: The patient denies chest pain, palpitations, cough, sore throat, fevers, chills, sweats, nausea, vomiting, diarrhea , constipation, abdominal pain, pelvic pain, blood in urine or stool, dysuria, urinary frequency or urgency, lightheadedness, dizziness, headache, loss of consciousness, abnormal bruising or bleeding, focal weakness, numbness or tingling in arms or legs, generalized arthralgias or myalgias, back or neck pain, or night sweats. The review of systems is otherwise negative other than for that already noted above, and at least 10 systems have been reviewed. Physical Exam Physical Exam: The patient is awake, alert and oriented 3, well developed and well nourished, normocephalic and atraumatic, lying in bed and in no acute distress. HEENT--PERRL, EOMI, mucous membranes and oropharynx normal Neck--supple. No JVD. No bruits. Thyroid normal, trachea midline, no adenopathy. Heart--normal S1 and S2. No murmurs, rubs or gallops. Lungs-- right greater than left crackles at the bases bilaterally. No respiratory distress, no accessory muscle use. Abdomen--normal bowel sounds and soft. Nontender. Nondistended Extremities--no cyanosis or clubbing. 1+ bilateral pretibial pitting edema Dermatologic--right lower extremity wrapped in Unna boot Neurologic--cranial nerves II through XII grossly intact. Rheumatologic--normal range of motion. Psychiatric--normal affect. Results & Data Results & Data Vital Signs (Past 12 Hours) Vital Signs Temp Pulse Pulse Resp BP BP Pulse Ox 08/29/23 23:43 60 18 135/91 99 08/29/23 22:01 59 L 18 100 08/29/23 21:59 59 L 18 145/108 H 100 08/29/23 21:41 62 08/29/23 19:24 36.8 C 56 L 20 146/52 H 91 O2 Del Method O2 Flow Rate 08/29/23 23:43 Nasal Cannula 4 08/29/23 22:01 Nasal Cannula 4 08/29/23 21:59 Nasal Cannula 4 08/29/23 21:41 08/29/23 19:24 Nasal Cannula 4 Laboratory Results Laboratory Results WBC 9.11 K/ul (4.8-10.8) 08/30/23 03:29 RBC 3.85 M/uL (4.20-5.40) L 08/30/23 03:29 Hgb 10.3 g/dl (12.0-16.0) L 08/30/23 03:29 Hct 34.5 % (37.0-47.0) L 08/30/23 03:29 MCV 89.6 fL (80.0-100.0) 08/30/23 03:29 MCH 26.8 pg (25.0-34.0) 08/30/23 03: MCHC 29.9 g/dL (32.0-36.0) L 08/30/23 03: RDW Std Deviation 55.8 fL (36.4-46.3) H 08/30/23 03: RDW Coeff of [place] 17.2 % (11.5-14.5) H 08/30/23 03:29 Plt Count 266 K/uL (130-400) 08/30/23 03: MPV 9.4 fL (9.4-12.4) 08/30/23 03: Immature Gran % (Auto) 0.3 % 08/30/23 03: Neut % (Auto) 78.2 % 08/30/23 03:29 Lymph % (Auto) 8.2 % 08/30/23 03:29 [place] % (Auto) 11.0 % 08/30/23 03:29 Eos % (Auto) 1.6 % 08/30/23 03:29 Baso % (Auto) 0.7 % 08/30/23 03:29 Neut # (Auto) 7.12 K/uL (1.40-6.50) H 08/30/23 03: Lymph # (Auto) 0.75 K/uL (1.20-3.40) L 08/30/23 03:29 [place] # (Auto) 1.00 K/uL (0.11-0.59) H 08/30/23 03:29 Eos # (Auto) 0.15 K/uL (0.00-0.50) 08/30/23 03:29 Baso # (Auto) 0.06 K/uL (0.00-0.20) 08/30/23 03:29 Immature Gran # (Auto) 0.03 K/uL (0.01-0.20) 08/30/23 03:29 PT 11.2 Seconds (9.0-12.0) 08/29/23 20:45 INR 1.0 (0.9-1.1) 08/29/23 20:45 APTT 29 Seconds (21-31) 08/29/23 20:45 PTT Ratio 1.0 08/29/23 20:45 Sodium 135 mmol/L (136-145) L 08/30/23 03:29 Potassium 4.2 mmol/L (3.5-5.1) 08/30/23 03:29 Chloride 99 mmol/L (98-107) 08/30/23 03:29 Carbon Dioxide 27 mmol/L (21-32) 08/30/23 03:29 Anion Gap 9 (3-11) 08/30/23 03:29 BUN 54 mg/dl (6-23) H 08/30/23 03:29 Creatinine 3.56 mg/dl (0.6-1.2) H 08/30/23 03:29 Est Cr Clr Drug Dosing Not Reportable 08/30/23 03:29 Est GFR ( Amer) 13.2 ml/min 08/30/23 03:29 Est GFR (Non-Af Amer) 11.4 ml/min 08/30/23 03:29 BUN/Creatinine Ratio 15.2 (10-20) 08/30/23 03:29 Glucose 114 mg/dl (70-99(Fasting)) H 08/30/23 03:29 Calcium 8.7 mg/dl (8.6-10.3) 08/30/23 03:29 Phosphorus 4.6 mg/dl (2.5-4.9) 08/30/23 03:29 Magnesium 2.1 mg/dl (1.7-2.4) 08/30/23 03:29 Total Bilirubin 0.7 mg/dl (0.2-1.0) 08/29/23 20:45 AST 31 U/L (13-39) 08/29/23 20:45 ALT 42 U/L (7-52) 08/29/23 20:45 Alkaline Phosphatase 76 U/L (34-104) 08/29/23 20:45 Troponin I High Sens 23.8 pg/ml (0-14) H 08/29/23 23:13 Total Protein 6.6 gm/dl (6.0-8.3) 08/29/23 20:45 Albumin 3.5 gm/dl (3.4-5.0) 08/30/23 03:29 Globulin 3.0 gm/dl (2.5-4.0) 08/29/23 20:45 Albumin/Globulin Ratio 1.2 (0.9-2) 08/29/23 20:45 Adenovirus (PCR) Not Detected (NotDetected) 08/29/23 23:39 B. pertussis DNA (PCR) Not Detected (NotDetected) 08/29/23 23:39 B.parapertussis DNA PCR Not Detected (NotDetected) 08/29/23 23:39 C. pneumoniae DNA (PCR) Not Detected (NotDetected) 08/29/23 23:39 Coronavirus OC43 (PCR) Not Detected (NotDetected) 08/29/23 23:39 Coronavirus HKU1 (PCR) Not Detected (NotDetected) 08/29/23 23:39 Coronavirus 229E (PCR) Not Detected (NotDetected) 08/29/23 23:39 SARS-CoV-2 (PCR) Not Detected (NotDetected) 08/29/23 23:39 Coronavirus NL63 (PCR) Not Detected (NotDetected) 08/29/23 23:39 Human Metapneumovir PCR Not Detected (NotDetected) 08/29/23 23:39 Influenza Type A (PCR) Not Detected (NotDetected) 08/29/23 23:39 Influenza Type B (PCR) Not Detected (NotDetected) 08/29/23 23:39 M. pneumoniae (PCR) Not Detected (NotDetected) 08/29/23 23:39 Parainfluenza 1 (PCR) Not Detected (NotDetected) 08/29/23 23:39 Parainfluenza 2 (PCR) Not Detected (NotDetected) 08/29/23 23:39 Parainfluenza 3 (PCR) Not Detected (NotDetected) 08/29/23 23:39 Parainfluenza 4 (PCR) Not Detected (NotDetected) 08/29/23 23:39 RSV (PCR) Not Detected (NotDetected) 08/29/23 23:39 Entero/Rhino (PCR) Not Detected (NotDetected) 08/29/23 23:[address] 08/29/23 23:19 Exam(s): CT CHEST Without Contrast EXAM: CT Chest Without Intravenous Contrast CLINICAL HISTORY: Reason for exam: SOB, pleural effusions, PNA. TECHNIQUE: Axial computed tomography images of the chest without intravenous contrast. CTDI is 11.27 mGy and DLP is 409.14 mGy-cm. Automated exposure control was utilized for the study. A dose lowering technique was utilized adhering to the principles of ALARA. COMPARISON: No relevant prior studies available. FINDINGS: Trachea: Calcified tracheobronchial tree. Lungs: Dependent airspace consolidations, concerning for multilobar pneumonia. Moderate bilateral pleural effusions, RIGHT greater than LEFT. Indwelling RIGHT chest tube. Pleural space: See above. Heart: Cardiomegaly. No significant pericardial effusion. No significant coronary artery calcifications. Bones/joints: Degenerative changes of the spine. No acute fracture. No dislocation. Soft tissues: Unremarkable. Vasculature: Atherosclerotic changes of the aorta. No thoracic aortic aneurysm. Lymph nodes: Unremarkable. No enlarged lymph nodes. IMPRESSION: Dependent airspace consolidations, concerning for multilobar pneumonia. Moderate bilateral pleural effusions, RIGHT greater than LEFT. Indwelling RIGHT chest tube. Electronically signed by: Casper Fleming MD 08/30/23 00:27 AM Code Status & VTE Plan Code Status Full code VTE Prophylaxis Plan VTE Prophylaxis will be ordered: Yes PG Care Time/CCT Total # of Minutes Spent Total Time Spent with Patient: Total time spent is greater than 50% in coordination of care (as documented) at patient's floor/unit and/or counseling patient: Coding Level of Care Code 51239 INT INP/OBS CARE 3/75MIN Diagnoses Acute on chronic respiratory failure with hypoxia J96.21 Recurrent pleural effusion J90 Heart failure with preserved ejection fraction I50.30 Pneumonia J18.9 CKD (chronic kidney disease) N18.9 Chronic kidney disease stage: unspecified stage Pressure ulcer of right leg, unstageable L89.890 Hx of pulmonary embolus Z86.711 Asthma-COPD overlap syndrome J44.9 Hypertension I10 Paroxysmal atrial fibrillation I48.0 Chronic kidney disease, stage V N18.5 Chronic anticoagulation Z79.01 (5) CKD (chronic kidney disease) Chronic kidney disease stage: unspecified stage Qualified Code(s): N18.9 - Chronic kidney disease, unspecified
[2023-08-30] MEDS: FUROSEMIDE 40 MG/4 ML VIAL IV ONE (00:07)
--- NOTE | 2023-08-30 00:29 | CT Scan Report ---
Exam(s): CT CHEST Without Contrast EXAM: CT Chest Without Intravenous Contrast CLINICAL HISTORY: Reason for exam: SOB, pleural effusions, PNA. TECHNIQUE: Axial computed tomography images of the chest without intravenous contrast. CTDI is 11.27 mGy and DLP is 409.14 mGy-cm. Automated exposure control was utilized for the study. A dose lowering technique was utilized adhering to the principles of ALARA. COMPARISON: No relevant prior studies available. FINDINGS: Trachea: Calcified tracheobronchial tree. Lungs: Dependent airspace consolidations, concerning for multilobar pneumonia. Moderate bilateral pleural effusions, RIGHT greater than LEFT. Indwelling RIGHT chest tube. Pleural space: See above. Heart: Cardiomegaly. No significant pericardial effusion. No significant coronary artery calcifications. Bones/joints: Degenerative changes of the spine. No acute fracture. No dislocation. Soft tissues: Unremarkable. Vasculature: Atherosclerotic changes of the aorta. No thoracic aortic aneurysm. Lymph nodes: Unremarkable. No enlarged lymph nodes. IMPRESSION: Dependent airspace consolidations, concerning for multilobar pneumonia. Moderate bilateral pleural effusions, RIGHT greater than LEFT. Indwelling RIGHT chest tube. Electronically signed by: Casper Fleming MD 08/30/23 00:27 AM
[2023-08-30 00:50] LABS: Adenovirus PCR Not Detected (NotDetected); Bordetella parapertussis PCR Not Detected (NotDetected); Bordetella pertussis PCR Not Detected (NotDetected); Chlamydia pneumoniae PCR Not Detected (NotDetected); Coronavirus 229E PCR Not Detected (NotDetected); Coronavirus CoV-2 (COVID19)PCR Not Detected (NotDetected); Coronavirus HKU1 PCR Not Detected (NotDetected); Coronavirus NL63 PCR Not Detected (NotDetected); Coronavirus OC43PCR Not Detected (NotDetected); Human Metapneumovirus PCR Not Detected (NotDetected); Influenza A PCR Not Detected (NotDetected); Influenza B PCR Not Detected (NotDetected); Mycoplasma pneumoniae PCR Not Detected (NotDetected); Parainfluenza Virus 1 PCR Not Detected (NotDetected); Parainfluenza Virus 2 PCR Not Detected (NotDetected); Parainfluenza Virus 3 PCR Not Detected (NotDetected); Parainfluenza Virus 4 PCR Not Detected (NotDetected); Respiratory Syncytial VirusPCR Not Detected (NotDetected); Rhinovirus/Enterovirus PCR Not Detected (NotDetected)
[2023-08-30] MEDS: CEFEPIME 2,000 MG/20 ML VIAL IV STA (01:02)
[2023-08-30] MEDS ORDERED: ACETAMINOPHEN 325 MG TAB PO PRN (02:17)
[2023-08-30] MEDS ORDERED: ALBUT/IPRATROP 3MG/0.5MG NEB 3 ML VIAL INH PRN (02:17)
[2023-08-30] MEDS ORDERED: POLYETHYLENE (MIRALAX) 17 GM PACK PO PRN (02:17)
[2023-08-30] MEDS ORDERED: LORazepam 0.5 MG TAB PO PRN (02:17)
[2023-08-30] MEDS ORDERED: ONDANSETRON INJ 2 MG/ML 2 ML VIAL IV PRN (02:17)
[2023-08-30] MEDS ORDERED: ALBUTEROL HFA 8 GM INHALER INH PRN (02:17)
[2023-08-30] MEDS ORDERED: oxyCODONE/ACETAMINOPHEN 5mg/325mg TAB PO PRN (02:17)
[2023-08-30 03:42] LABS: Basophils # (auto) 0.06 K/uL (0.00-0.20); Basophils % (auto) 0.7 %; Eosinophils # (auto) 0.15 K/uL (0.00-0.50); Eosinophils % (auto) 1.6 %; Hematocrit (blood only) 34.5 % (37.0-47.0); Hemoglobin 10.3 g/dl (12.0-16.0); Immature Granulocytes # (auto) 0.03 K/uL (0.01-0.20); Immature Granulocytes % (auto) 0.3 %; Lymphocytes # (auto) 0.75 K/uL (1.20-3.40); Lymphocytes % (auto) 8.2 %; Mean Corpuscular Hemoglobin 26.8 pg (25.0-34.0); Mean Corpuscular Hgb Conc 29.9 g/dL (32.0-36.0); Mean Corpuscular Volume 89.6 fL (80.0-100.0); Mean Platelet Volume 9.4 fL (9.4-12.4); Neutrophils # (auto) 7.12 K/uL (1.40-6.50); Neutrophils % (auto) 78.2 %; Platelet Count 266 K/uL (130-400); RDW Coefficient of Variation 17.2 % (11.5-14.5); RDW Standard Deviation 55.8 fL (36.4-46.3); Red Blood Count 3.85 M/uL (4.20-5.40); White Blood Count 9.11 K/ul (4.8-10.8)
[2023-08-30 03:55] LABS: Albumin Level 3.5 gm/dl (3.4-5.0); Anion Gap 9 (3-11); BUN Creatinine Ratio 15.2 (10-20); Blood Urea Nitrogen 54 mg/dl (6-23); Calcium 8.7 mg/dl (8.6-10.3); Carbon Dioxide 27 mmol/L (21-32); Chloride 99 mmol/L (98-107); Est GFR (African American) 13.2 ml/min; Est GFR (Non-African American) 11.4 ml/min; Glucose 114 mg/dl (70-99(Fasting)); Magnesium 2.1 mg/dl (1.7-2.4); Phosphorus 4.6 mg/dl (2.5-4.9); Potassium 4.2 mmol/L (3.5-5.1); Sodium 135 mmol/L (136-145)
--- NOTE | 2023-08-30 06:38 | XRay Report ---
XR chest 1V not portable HISTORY: 83 years-old Female Chest pain, nonspecific COMPARISON: Chest CT of same day TECHNIQUE: AP view of the chest FINDINGS: Cardiac silhouette is enlarged. Right basilar pleural catheter. Small right apical pneumothorax with pleural separation of 11 mm (hydropneumothorax). Moderate-sized layering pleural effusions with bibas ilar consolidation. Pulmonary edema. Bones appear grossly intact. IMPRESSION: 1. Cardiomegaly with pulmonary edema, moderate pleural effusions with bibasilar consolidation. 2. Right basilar pleural catheter in place with small right apical pneumothorax. ACT 112: Negative or not required by law. The above report was generated using voice recognition software. It may contain grammatical, syntax o r spelling errors. Electronically signed by: Melo Muse M.D. 08/30/2023 6:37 AM
--- NOTE | 2023-08-30 08:08 | Electrocardiogram Report ---
Test Reason : Blood Pressure : / mmHG Vent. Rate : 057 BPM Atrial Rate : 057 BPM P-R Int : 238 ms QRS Dur : 082 ms QT Int : 474 ms P-R-T Axes : 080 058 024 degrees QTc Int : 461 ms Poor data quality, interpretation may be adversely affected Sinus bradycardia with 1st degree A-V block Possible Old Septal infarct Abnormal ECG When compared with ECG of 27-JUN-2023 14:20, [place] interval has increased Criteria for Septal infarct is now Present QT has shortened Confirmed by Danny Hinds ([id number]) on 08/30/2023 8:08:28 AM Referred By: REFERRED SELF Confirmed By:Danny Hinds
[2023-08-30] MEDS: Patient's HEIGHT &/or WEIGHT Needed STA (08:46)
[2023-08-30] MEDS: FLUTICASONE/VILANTEROL 200/25MCG 14 PUFFS/INHALER INH SCH (08:47)
[2023-08-30] MEDS: CYANOCOBALAMIN (B-12) 500 MCG TABLET PO SCH (08:47)
[2023-08-30] MEDS: ISOSORBIDE MONO EXTENDED REL 30 MG TABCR PO SCH (08:47)
[2023-08-30] MEDS: DOCUSATE SODIUM/SENNA 50/8.6MG TAB PO SCH (08:47)
[2023-08-30] MEDS: METOPROLOL TARTRATE 25 MG TAB PO SCH (08:47)
[2023-08-30] MEDS ORDERED: CEFEPIME 2,000 MG in SYRINGE 0 ML IV SCH (09:00)
[2023-08-30] MEDS: FUROSEMIDE 20 MG TAB PO SCH (11:03)
--- NOTE | 2023-08-30 11:12 | Procedure Note ---
Procedure Note Date of Service August 30, 2023 Supervising Physician Co-Signing Physician Notes Pleurx catheter dressing was taken down with the patient's consent. Gauze and Pleurx catheter pad was taken off. Pleurx catheter appeared to be intact. I flushed the Pleurx catheter with 20 cc of saline using an aseptic technique. I was able to aspirate fluid back. The catheter was attached to a Pleurx bottle and I removed approximately 1.1 L of dimas-colored fluid. Patient noted some mild discomfort in her chest when nearing the end of the drainage which quickly resolved. The cath was placed on the Pleurx catheter. A sterile dressing was placed over the Pleurx catheter site as before. Patient tolerated the procedure well with noted improvement of dyspnea post drainage. She was weaned off of oxygen. Bedside nurse was present throughout the entirety of the procedure. 1.1 L of dimas-colored fluid drained from the right Pleurx catheter without issue and improvement of symptoms. Coding CPT Codes Pulmonary/Thoracic - Pulmonary and Thoracic: 96583 Pleural drainage w/o imaging ([id number]) [facility] [place] Procedure Codes (Charges) Pulmonary/Thoracic Procedure 1: Pulmonary and Thoracic: 44148 Pleural drainage w/o imaging
--- NOTE | 2023-08-30 11:28 | Pulmonary Consultation ---
Date of Consultation August 30, 2023 Assessment & Plan (1) Bilateral pleural effusion: (2) Hypoxia: Plan 83-year-old female with a complex history of CKD stage V, severe mitral regurgitation, lupus anticoagulant disorder, severe hearing loss and a right PleurX catheter who presented due to poor drainage from the Pleurx catheter and increased shortness of breath. I was able to successfully flush the Pleurx catheter with 20 cc of saline and was able to drain the catheter of approximately 1.1 L of dimas-colored fluid. The patient felt significantly improved from a shortness of breath perspective. She has been weaned off oxygen at rest. I suspect she will need ambulatory oxy gen. Recommend continued drainage every other day or if symptoms recur more rapidly. The she will need outpatient follow-up with her primary horse trader. There does not appear to be any significant clinical history consistent with pneumonia as the patient denies any cough, fevers or chills. The pleural fluid does not appear purulent or different from prior. She is without leukocytosis. I suspect the CT chest findings are secondary to atelectasis and pulmonary edema. Antibiotics can be discontinued. Recommend goals of care discussion with the patient and family given advanced kidney disease and cardiac issues. Otherwise at this time, no further pulmonary interventions required. Please call with questions. Thank you for the consult. Dr. Martin was updated via [employer] text. History of Present Illness Reason for Consultation: PleurX catheter malfunction Attending Physician: Mercedes Martin MD History of Present Illness 83-year-old female with past medical history of recurrent pleural effusions, stage V CKD and a recently inserted right Pleurx catheter by Dr. Lau 07/27/2023 who presented to the hospital due to inability to drain her Pleurx catheter. Patient's daughter notes that they were only able to drain about 200 cc out of the catheter and are normally able to drain about a liter. Patient notes that she has chronic shortness of breath which has progressed a bit over the past couple days. She denies any cough, fevers, chills or night sweats. She denies any chest pain. Labs with evidence of chronic anemia. No leukocytosis noted. Patient was on 4 L of oxygen when I came to see her and was saturating 99%. CT chest completed yesterday personally reviewed which reveals bibasilar effusions with bibasilar atelectasis. Right indwelling Pleurx catheter noted. Allergies Allergy/AdvReac Type Severity Reaction Status Date / Time Sulfa (Sulfonamide AdvReac Intermediate HEADACHE, Verified 08/18/23 13:28 Antibiotics) VERTIGO adhesive AdvReac skin tears Verified 08/18/23 13:28 Home Medications Medication Instructions Recorded Confirmed Type aspirin 81 mg tablet,delayed 81 mg PO HS 07/02/19 08/30/23 History release (Adult Low Dose Aspirin) sennosides 8.6 mg-docusate sodium 1 tab PO BID #60 tabs 08/19/22 08/30/23 Rx 50 mg tablet (Senokot-S) metoprolol tartrate 25 mg tablet 12.5 mg (1/2 x 25 mg) PO BID #90 10/04/22 08/30/23 Rx tabs atorvastatin 20 mg tablet 20 mg PO HS #90 tabs 11/10/22 08/30/23 Rx albuterol sulfate 90 mcg/actuation 2 puff inhalation Q6H PRN 11/24/22 08/30/23 Rx aerosol inhaler Shortness Of Breath Or Wheezing #18 grams budesonide-formoterol HFA 160 2 puff inhalation BID #10.2 grams 11/24/22 08/30/23 Rx mcg-4.5 mcg/actuation aerosol inhaler (Symbicort) ipratropium 0.5 mg-albuterol 3 mg 3 ml inhalation Q2H PRN shortness 11/24/22 08/30/23 Rx (2.5 mg base)/3 mL nebulization of breath or wheezing #180 mL soln calcitriol 0.5 mcg capsule 0.5 mcg PO 3XWK #45 caps 12/02/22 08/30/23 Rx apixaban 2.5 mg tablet (Eliquis) 2.5 mg PO BID #180 tabs 01/31/23 08/30/23 Rx epoetin kole 40,000 unit/mL 40,000 unit subcut .q2w 60 days #4 02/15/23 08/30/23 Rx injection solution mL polyethylene glycol 3350 17 gram 17 g PO DAILY PRN Constipation 04/21/23 08/30/23 History oral powder packet (Miralax) amiodarone 200 mg tablet 200 mg PO QPM 05/12/23 08/30/23 History Over Night Pulse OX #1 ea 05/23/23 08/30/23 Rx Oxygen Home #1 ea 05/23/23 08/30/23 Rx paroxetine HCl 40 mg tablet 40 mg PO HS #90 tabs 06/29/23 08/30/23 Rx lorazepam 0.5 mg tablet 0.25 - 0.5 mg (0.5 - 1 x 0.5 mg) 07/06/23 08/30/23 Rx PO HS PRN anxiety/insomnia #30 tabs furosemide 20 mg tablet 20 mg PO BID #180 tabs 08/08/23 08/30/23 Rx isosorbide mononitrate 30 mg 30 mg PO QAM 08/18/23 08/30/23 History tablet,extended release 24 hr oxycodone-acetaminophen 5 mg-325 0.5 - 1 tab PO BID PRN pain #30 08/18/23 08/30/23 Rx mg tablet tabs cyanocobalamin (vitamin B-12) 1,000 mcg PO QAM 08/30/23 08/30/23 History 1,000 mcg capsule melatonin 10 mg tablet 10 mg PO HS 08/30/23 08/30/23 History Patient History Medical History (Updated 08/30/23 @ 11:23 by Gael Dutton MD) Bilateral pleural effusion Chronic kidney disease, stage V no dialysis; f/u dr. tinsley COPD (chronic obstructive pulmonary disease) Rheumatoid arthritis Slow to wake up after anesthesia happened once time Hx of vertigo "none for quite some time, occurred when taking sulfa for her bladder problems" Mitral regurgitation Acute respiratory failure with hypoxia hx-hospitalized 04/21/23 @[facility] Restrictive lung disease daily inh, inh and neb prn Paroxysmal atrial fibrillation Pleural effusion Acute on chronic diastolic CHF (congestive heart failure) recently hospitalized @[facility] on 04/21/23 Chronic anticoagulation Atrial fibrillation with rapid ventricular response currently on eliquis; f/u dr. 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 Surgical History (Updated 08/18/23 @ 16:08 by Ephraim Espinoza LPN) H/O surgical biopsy 08/18/2023 non-healing lesion left cheek History of esophagogastroduodenoscopy (EGD) Hx of colonoscopy Hx of vein stripping Hx of hysterectomy Family History Mother Blood clot in vein Father Myocardial infarction Sister Blood clot in vein Breast cancer Aunt Blood clot in vein Son Prostate cancer Denies family history of Ovarian cancer Colorectal cancer Social History Smoking Status: Never smoker Second Hand Exposure: Yes (hx growing up); Do You Dip or Chew Tobacco: No; Hx Alcohol Use: No Hx Substance Use: No Preferred Language: [place] Communication Ability: Effective Visual Impairment: Limited Hearing Ability: Use of Hearing Aid Gas Analyst Required: No Beliefs That Will Affect Care: None marital status: / Current Living Situation: Family Current Living Situation Comment: Lives at home with family stopping in multiple times a day current occupational status: retired 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 Patient is in no apparent distress. Patient is well-developed. Patient is very hard of hearing Eyes: Pupils are equal round and reactive to light. Conjunctivae are normal. Anicteric sclera. Ears nose, mouth and throat: Mallampati class 2. Normal posterior oropharynx. Uvula is midline. Neck: Trachea is midline. Visual inspection is normal. Respiratory: Clear to auscultation bilaterally. No use of accessory muscles. No significant clubbing noted. Diminished lung sounds bilaterally. Right Pleurx catheter intact Cardiovascular: Regular rate and rhythm. No murmurs. No edema. Gastrointestinal: Normal bowel sounds, soft, nontender and nondistended. No hepatosplenomegaly noted. Musculoskeletal: No cyanosis. Patient is able to move all extremities. Strength is 5 out of 5 in the upper and lower extremities. Skin: No rashes, warm dry and intact. Neurologic: No obvious focal neurological deficits seen. Psychiatric: Alert and oriented x3 with a euthymic affect. Results & Data Results & Data Vital Signs (Past 12 Hours) Vital Signs Pulse Pulse Resp BP Pulse Ox Pulse Ox O2 Del Method 08/30/23 09:46 Nasal Cannula 08/30/23 09:46 60 20 146/65 H 97 Nasal Cannula 08/30/23 09:00 89 L Nasal Cannula 08/30/23 07:05 58 L 08/30/23 06:00 58 L 14 146/63 H 100 Nasal Cannula 08/30/23 04:00 59 L 14 152/53 H 98 Room Air 08/30/23 02:36 61 14 100 Nasal Cannula 08/30/23 02:22 61 08/30/23 02:17 100 08/30/23 02:11 60 14 136/71 100 Nasal Cannula 08/30/23 01:32 59 L 08/29/23 23:43 60 18 135/91 99 Nasal Cannula O2 Del Method O2 Flow Rate O2 Flow Rate 08/30/23 09:46 4 08/30/23 09:46 4 08/30/23 09:00 0 08/30/23 07:05 08/30/23 06:00 4 08/30/23 04:00 4 08/30/23 02:36 3 08/30/23 02:22 08/30/23 02:17 Nasal Cannula 4 08/30/23 02:11 3 08/30/23 01:32 08/29/23 23:43 4 PG Care Time/CCT Total # of Minutes Spent Total Time Spent with Patient: Total time spent is greater than 50% in coordination of care (as documented) at patient's floor/unit and/or counseling patient: Coding Level of Care Code 56825 INT INP/OBS CARE 3/75MIN Diagnoses Bilateral pleural effusion J90 Hypoxia R09.02
--- NOTE | 2023-08-30 11:44 | Discharge Summary ---
Discharge Summary Date of Service August 30, 2023 Notes For Next Care Provider Medication Changes From Visit None Admission HPI Per Admitting Provider The patient is an 83-year-old female with a past medical history including recurrent pleural effusion, stage 5 CKD not on dialysis, right leg pressure ulcer, restrictive airway disease, history of PE, asthma-COPD overlap syndrome, long-term anticoagulant use, hypertension, history of SVT, HFpEF, paroxysmal atrial fibrillation, hearing loss, and recurrent UTI. The patient presents to the emergency department with her daughter, after nursing attempted to drain Pleurx catheter of right lung this morning only drained 200 cc. Patient has been chronically short of breath, but has not noted any particular changes recently, although her physical activity level is relatively low. Principal Dx & Hospital Course #1 = Principal Diagnosis (1) Acute on chronic respiratory failure with hypoxia: secondary to pleural effusion, drained here and hypoxia at rest resolved. Continue to use 4LNC O2 at home with exertion (2) Recurrent pleural effusion: secondary to valvular heart disease and HFpEF PULM consulted here and drained 1.1L from PleurX without difficulty PleurX in palce-continue drainage every other day and as needed for SOB f/u with Cardiology for valve replacement discussions (3) Heart failure with preserved ejection fraction: continue usual home meds and f/u as outpt with Cardiolgoy (4) Pneumonia: ruled out, no need for further antibiotics no fevers or leukocytosis, cough consolidation 2/2 pleural effusions (5) CKD (chronic kidney disease): stage 5, stable -Avoid nephrotoxins -renally dose meds when appropriate -follow BMP as outpt (6) Pressure ulcer of right leg, unstageable: continue Unna boot, wound care outpt (7) Hx of pulmonary embolus: resume Eliquis this evening (8) Asthma-COPD overlap syndrome: continue usual home inhalers (9) Hypertension: BPs controlled continue home meds (10) Paroxysmal atrial fibrillation: in sinus here continue Eliquis, metoprolol Plan Dispo-dc to home Discharge Exam Constitutional WD/WN, vitals as above Respiratory normal respiratory effort Auscultation: + diminished lung sounds (at bases bilat) Cardiovascular Rate/Rhythm: regular rate and regular rhythm Heart Sounds: + murmur (2/6 systolic) Extremities: no edema Skin Unna boot in plae on right, PRATIMA hose on left Psychiatric A+Ox3, euthymic affect Updated Medication List Medication Instructions Recorded Confirmed Type aspirin 81 mg tablet,delayed 81 mg PO HS 07/02/19 08/30/23 History release (Adult Low Dose Aspirin) sennosides 8.6 mg-docusate sodium 1 tab PO BID #60 tabs 08/19/22 08/30/23 Rx 50 mg tablet (Senokot-S) metoprolol tartrate 25 mg tablet 12.5 mg (1/2 x 25 mg) PO BID #90 10/04/22 08/30/23 Rx tabs atorvastatin 20 mg tablet 20 mg PO HS #90 tabs 11/10/22 08/30/23 Rx albuterol sulfate 90 mcg/actuation 2 puff inhalation Q6H PRN 11/24/22 08/30/23 Rx aerosol inhaler Shortness Of Breath Or Wheezing #18 grams budesonide-formoterol HFA 160 2 puff inhalation BID #10.2 grams 11/24/22 08/30/23 Rx mcg-4.5 mcg/actuation aerosol inhaler (Symbicort) ipratropium 0.5 mg-albuterol 3 mg 3 ml inhalation Q2H PRN shortness 11/24/22 08/30/23 Rx (2.5 mg base)/3 mL nebulization of breath or wheezing #180 mL soln calcitriol 0.5 mcg capsule 0.5 mcg PO 3XWK #45 caps 12/02/22 08/30/23 Rx apixaban 2.5 mg tablet (Eliquis) 2.5 mg PO BID #180 tabs 01/31/23 08/30/23 Rx epoetin kole 40,000 unit/mL 40,000 unit subcut .q2w 60 days #4 02/15/23 08/30/23 Rx injection solution mL polyethylene glycol 3350 17 gram 17 g PO DAILY PRN Constipation 04/21/23 08/30/23 History oral powder packet (Miralax) amiodarone 200 mg tablet 200 mg PO QPM 05/12/23 08/30/23 History Over Night Pulse OX #1 ea 05/23/23 08/30/23 Rx Oxygen Home #1 ea 05/23/23 08/30/23 Rx paroxetine HCl 40 mg tablet 40 mg PO HS #90 tabs 06/29/23 08/30/23 Rx lorazepam 0.5 mg tablet 0.25 - 0.5 mg (0.5 - 1 x 0.5 mg) 07/06/23 08/30/23 Rx PO HS PRN anxiety/insomnia #30 tabs furosemide 20 mg tablet 20 mg PO BID #180 tabs 08/08/23 08/30/23 Rx isosorbide mononitrate 30 mg 30 mg PO QAM 08/18/23 08/30/23 History tablet,extended release 24 hr oxycodone-acetaminophen 5 mg-325 0.5 - 1 tab PO BID PRN pain #30 08/18/23 08/30/23 Rx mg tablet tabs cyanocobalamin (vitamin B-12) 1,000 mcg PO QAM 08/30/23 08/30/23 History 1,000 mcg capsule melatonin 10 mg tablet 10 mg PO HS 08/30/23 08/30/23 History Hospital Stay Data Consultations 08/29/23 23:20 ED Decision to Admit Stat 08/30/23 02:17 Consult Pulmonology Routine Diagnostic Imagining Performed 08/29/23 23:19 CT chest diagnostic wo con Stat Pending Results Patient Have Any Pending Studies at Discharge: No Discharge Instructions Given to Patient (Per Discharging Provider) You were admitted with a possible problem with your PleurX catheter. The Cover Creaser here was able to drain 1.1L of fluid from the drain and did not detect any problems with the catheter. You can use your oxygen at home with ambulation for shortness of breath. You do NOT have pneumonia and do NOT need any antibiotics. Please follow up with your Cover Creaser and PCP. Total Time Total Time Spent Total Time Spent (In Minutes): 35 min Coding Level of Care Code 30103 INP/OBS DISCH >30 MIN Diagnoses Acute on chronic respiratory failure with hypoxia J96.21 Recurrent pleural effusion J90 Heart failure with preserved ejection fraction I50.30 Pneumonia J18.9 CKD (chronic kidney disease) N18.9 Chronic kidney disease stage: unspecified stage Pressure ulcer of right leg, unstageable L89.890 Hx of pulmonary embolus Z86.711 Asthma-COPD overlap syndrome J44.9 Hypertension I10 Paroxysmal atrial fibrillation I48.0
[2023-08-30] MEDS ORDERED: PARoxetine HCL 20 MG TAB PO SCH (21:00)
[2023-08-30] MEDS ORDERED: MELATONIN 3 MG TAB PO SCH (21:00)
[2023-08-30] MEDS ORDERED: AMIODARONE 200 MG TAB PO SCH (21:00)
[2023-08-30] MEDS ORDERED: ASPIRIN 81 MG ECTAB PO SCH (21:00)
[2023-08-30] MEDS ORDERED: ATORVASTATIN 20 MG TAB PO SCH (21:00)
[2023-08-31] MEDS ORDERED: CEFEPIME 1,000 MG in SYRINGE 0 ML IV SCH (01:00)
[2023-08-31] MEDS ORDERED: CYANOCOBALAMIN (B-12) 500 MCG TABLET PO SCH (09:00)
[2023-08-31] MEDS ORDERED: CALCITRIOL 0.25 MCG CAPSULE PO SCH (21:00)
== END 2023-08-30 13:29 | disposition home health service (06) | DRG 189 ==
LOC: ED 18:20 → EDINP 23:51 → INTOOBSV 23:51 → SUATTDRO 23:51 → EDINP 08-30 02:17

== ENCOUNTER 2023-10-31 15:50 | Observation (INO) ==
--- NOTE | 2023-10-31 16:19 | ED Triage Note ---
Date of Service October 31, 2023 Provider in Triage Author: Akin Whitt History of Present Illness This patient was briefly evaluated while in triage. An abbreviated physical exam was performed. This patient is a 83-year-old Female who presents to the ED for evaluation of tired feeling and concerned hemoglobin 7.9 recently. No dyspnea. Port in L arm. Physical Exam GENERAL: 83 year old female. In no acute distress. SKIN: No lesions or rashes. HEART: Regular rate and rhythm. LUNGS: Clear to auscultation. NEURO: Alert and oriented. No deficits. MUSCULOSKELETAL: No deformities to inspection of the extremities. PSYCH: Patient is pleasant and answers all questions appropriately. Initial orders for labs and / or imaging were placed and patient was placed in the waiting area until a bed is available. Please see further documentation for the full ED course.
[2023-10-31 17:47] LABS: Basophils # (auto) 0.05 K/uL (0.00-0.20); Basophils % (auto) 0.5 %; Eosinophils # (auto) 0.33 K/uL (0.00-0.50); Hematocrit (blood only) 25.1 % (37.0-47.0); Hemoglobin 7.9 g/dl (12.0-16.0); Immature Granulocytes # (auto) 0.07 K/uL (0.01-0.20); Immature Granulocytes % (auto) 0.6 %; Lymphocytes # (auto) 0.85 K/uL (1.20-3.40); Lymphocytes % (auto) 7.7 %; Mean Corpuscular Hemoglobin 25.2 pg (25.0-34.0); Mean Corpuscular Hgb Conc 31.5 g/dL (32.0-36.0); Mean Corpuscular Volume 80.2 fL (80.0-100.0); Mean Platelet Volume 8.9 fL (9.4-12.4); Monocytes # (auto) 0.88 K/uL (0.11-0.59); Neutrophils # (auto) 8.88 K/uL (1.40-6.50); Neutrophils % (auto) 80.2 %; Platelet Count 446 K/uL (130-400); RDW Coefficient of Variation 18.1 % (11.5-14.5); RDW Standard Deviation 52.8 fL (36.4-46.3); Red Blood Count 3.13 M/uL (4.20-5.40); White Blood Count 11.06 K/ul (4.8-10.8)
[2023-10-31 18:03] LABS: Alanine Aminotransferase 20 U/L (7-52); Albumin Globulin Ratio 0.7 (0.9-2); Albumin Level 2.6 gm/dl (3.4-5.0); Alkaline Phosphatase 111 U/L (34-104); Anion Gap 9 (3-11); Aspartate Aminotransferase 26 U/L (13-39); Bilirubin,Total 0.9 mg/dl (0.2-1.0); Blood Urea Nitrogen 49 mg/dl (6-23); Carbon Dioxide 23 mmol/L (21-32); Chloride 96 mmol/L (98-107); Est GFR (Non-African American) 14.6 ml/min; Globulin 3.6 gm/dl (2.5-4.0); Glucose 167 mg/dl (70-99(Fasting)); Lipase 16 U/L (11-82); Sodium 128 mmol/L (136-145); Total Protein 6.2 gm/dl (6.0-8.3)
[2023-10-31 18:05] LABS: Ovalocytes 1+; Polychromasia 1+
[2023-10-31 18:08] LABS: Troponin I High Sensitivity 24.7 pg/ml (0-14)
[2023-10-31 18:11] LABS: INR 1.2 (0.9-1.1); Partial Thromboplastin Ratio 1.2; Partial Thromboplastin Time 35 Seconds (21-31); Prothrombin Time 12.5 Seconds (9.0-12.0)
[2023-10-31 18:18] LABS: Thyroid Stimulating Hormone 8.352 uIu/ml (0.300-4.500)
[2023-10-31 18:52] LABS: T4 Free Thyroxine 0.92 ng/dl (0.61-1.60)
--- NOTE | 2023-10-31 18:53 | Emergency Department Note ---
Impression & Plan Weakness, Pleural effusion, Hyponatremia, Anemia ED Provider Note NAME: JAZMÍN CARPENTER AGE: 83 SEX: F : 1940 ARRIVES VIA: Walk-In INFORMANT: [Patient] ED PROVIDER(S): [Tal Espinoza MD] CHIEF COMPLAINT: Abnormal laboratories HISTORY OF PRESENT ILLNESS: The patient is an 83-year-old female with renal disease. She had lab work done late last week and was called today because her hemoglobin was low in the upper sevens. She was sent here for a red blood cell transfusion. The patient does have a history of anemia but the value in the sevens is below her typical range. The patient complains of fatigue and weakness and just not being able to stay awake. No fever, chills or cough or congestion. No urinary complaints. She was just at the wound center for care of a wound on her right leg. It has been attended to and dressed and wrapped. The patient did have a few bouts of diarrhea although, it was not black or bloody. PMHx/PSHx/Social Hx: See Below PHYSICAL EXAM: GENERAL: Patient is in no acute distress. HEENT: No acute trauma, normocephalic atraumatic, mucous membranes moist, no nasal congestion. NECK: No stridor, no adenopathy, no meningismus, trachea is midline. LUNGS: Clear to auscultation bilaterally when listening anterior, no wheeze, no rhonchi, breath sounds equal. HEART: Subtle systolic murmur, regular rate and rhythm. ABDOMEN: Soft, nontender, no peritonitis. EXTREMITIES: No cyanosis, full range of motion of all the joints without pain or difficulty. There is a dressing on the right lower extremity. No drainage on the bandage. NEUROLOGIC: Oriented x 3, no acute motor or sensory deficits, no focal weakness. SKIN: No jaundice, no diaphoresis. Pale. Rectal: Brown stool, heme-negative. DIFFERENTIAL DIAGNOSIS: Anemia, electrolyte imbalance, dehydration, UTI, renal or liver failure, GI bleeding, among others. EMERGENCY DEPARTMENT PROCEDURES: MEDICAL DECISION MAKING: There is a mild leukocytosis, this could be consistent with infection. There was a low hemoglobin at 7.9. This is below the patient's typical baseline. Rectal exam was heme-negative. Platelet count was slightly high at 446. INR was elevated at 1.2. Sodium was low at 128, this is a drop for the patient looking back at previous testing. There is evidence for renal failure however, her creatinine is actually improved compared to her recent testing. No concerning liver enzyme elevation. No evidence for pancreatitis. TSH was high however, the T4 was normal. ECG showed a sinus rhythm, no obvious ischemia. Cardiac enzyme testing x 1 was slightly elevated. Patient does have a history of a mild troponin elevation when looking back at previous testing. Urinalysis did not show infection. COVID, influenza and RSV test were negative. Chest x- ray shows a right-sided effusion with a potential infiltrate versus atelectasis. The patient received IV saline, 500 cc. The patient presents with weakness and fatigue. She was found to be anemic and hyponatremic. She will require a hospital stay. She would likely benefit from a red blood cell transfusion. She requires some electrolyte replacement. With regard to the pleural effusion, this is somewhat chronic in appearance when looking back at previous imaging. As the patient is not short of breath or coughing, this was not emergently addressed in the ER. I spoke with the patient and case management, the on-call hospice was consulted. Prior/Outside records/notes reviewed: Family practice note from 10/20/2023 discussing her ongoing issues and the plan moving forward. ECG per my interpretation: Indication was weakness. The ECG shows a normal sinus rhythm with a rate of 63. There is some nonspecific ST change, no acute ST elevation, no PVCs. The QTc is 487. Continuous Cardiac Monitoring per my interpretation: An order was placed for continuous cardiac monitoring. The monitor shows a rate of 65 with normal sinus rhythm. Imaging/x-ray results per my interpretation: Chest x-ray shows a right pleural effusion with a potential infiltrate versus some atelectasis in the right lower lung. No pneumothorax. The right-sided effusion has been seen before on previous testing. Chronic Medical/Social conditions affecting care: Advanced age Care/Management discussed with: Case management, the on-call hospitalist. Level of care consideration(s): After review of the information above and other included data: --I believe the patient requires escalation of care to admission DISPOSITION: Admission Past Med/Surg History Medical History Anemia B12 deficiency Folate deficiency Hemorrhage from the ear Bilateral pleural effusion Chronic kidney disease, stage V no dialysis; f/u dr. tinsley COPD (chronic obstructive pulmonary disease) Rheumatoid arthritis Slow to wake up after anesthesia happened once time Hx of vertigo "none for quite some time, occurred when taking sulfa for her bladder problems" Mitral regurgitation Acute respiratory failure with hypoxia hx-hospitalized 04/21/23 @[facility] Restrictive lung disease daily inh, inh and neb prn Paroxysmal atrial fibrillation Pleural effusion Acute on chronic diastolic CHF (congestive heart failure) recently hospitalized @[facility] on 04/21/23 Chronic anticoagulation Atrial fibrillation with rapid ventricular response currently on eliquis; 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 Surgical History H/O surgical biopsy 08/18/2023 non-healing lesion left cheek History of esophagogastroduodenoscopy (EGD) Hx of colonoscopy Hx of vein stripping Hx of hysterectomy Family History Mother Blood clot in vein Father Myocardial infarction Sister Blood clot in vein Breast cancer Aunt Blood clot in vein Son Prostate cancer Denies family history of Ovarian cancer Colorectal cancer Social History Smoking Status: Never smoker Second Hand Exposure: No; Do You Dip or Chew Tobacco: No; Hx Alcohol Use: No Hx Substance Use: No Preferred Language: Chinese Communication Ability: Effective Communication Ability Comment: Patient is hard of hearing at this time and requires a white board. 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 How many Children do You have: 3 How many Children do You have Comment: Sons work close and assist pt with meals Feels Safe at Home: Yes Childhood Exposure to Second-Hand Smoke: Yes Diet: regular caffeine: No Dental Care, Regularly: Yes Physical Activity Frequency: Does not Exercise Seatbelt Use: always Sunscreen Use: Yes Assistive Devices: Hospital Bed and Walker Allergies Allergies Allergy/AdvReac Type Severity Reaction Status Date / Time adhesive AdvReac Intermediate skin tears Verified 10/31/23 20:17 Sulfa (Sulfonamide AdvReac Intermediate HEADACHE, Verified 10/31/23 20:17 Antibiotics) VERTIGO Home Meds Home Medications Medication Instructions Recorded Confirmed aspirin 81 mg tablet,delayed 81 mg PO HS 07/02/19 10/31/23 release (Adult Low Dose Aspirin) polyethylene glycol 3350 17 gram 17 g PO DAILY PRN Constipation 04/21/23 10/31/23 oral powder packet (Miralax) cyanocobalamin (vitamin B-12) 1,000 mcg PO QAM 08/30/23 10/31/23 1,000 mcg capsule melatonin 10 mg tablet 10 mg PO HS 08/30/23 10/31/23 epoetin kole 40,000 unit/mL 40,000 unit subcut UD 10/31/23 10/31/23 injection solution isosorbide mononitrate 60 mg 60 mg PO QAM 10/31/23 10/31/23 tablet,extended release 24 hr paroxetine HCl 40 mg tablet 20 mg PO HS 10/31/23 10/31/23 Previous Rx's Medication Instructions Recorded sennosides 8.6 mg-docusate sodium 1 tab PO BID #60 tabs 08/19/22 50 mg tablet (Senokot-S) albuterol sulfate 90 mcg/actuation 2 puff inhalation Q6H PRN 11/24/22 aerosol inhaler Shortness Of Breath Or Wheezing #18 grams budesonide-formoterol HFA 160 2 puff inhalation BID #10.2 grams 11/24/22 mcg-4.5 mcg/actuation aerosol inhaler (Symbicort) ipratropium 0.5 mg-albuterol 3 mg 3 ml inhalation Q2H PRN shortness 11/24/22 (2.5 mg base)/3 mL nebulization of breath or wheezing #180 mL soln calcitriol 0.5 mcg capsule 0.5 mcg PO 3XWK #45 caps 12/02/22 apixaban 2.5 mg tablet (Eliquis) 2.5 mg PO BID #180 tabs 01/31/23 Over Night Pulse OX #1 ea 05/23/23 Oxygen Home [id number] #1 ea 05/23/23 Lift Chair #1 ea 08/31/23 metoprolol tartrate 25 mg tablet 12.5 mg (1/2 x 25 mg) PO BID #90 09/08/23 tabs clobetasol 0.05 % topical ointment 1 applic EXT DAILY #15 grams 09/22/23 gentamicin 0.1 % topical cream 1 applic EXT DAILY #15 grams 09/22/23 oxycodone-acetaminophen 5 mg-325 0.5 - 1 tab PO BID PRN pain #60 10/20/23 mg tablet tabs furosemide 20 mg tablet 20 mg PO BID #180 tabs 10/24/23 Results & Data (ED) Vital Signs Vital Signs - 24 hr 10/31/23 16:20 10/31/23 18:40 10/31/23 18:40 Temperature 36.7 C Temperature Source Temporal Artery Scan Pulse Rate 64 65 Pulse Rate [Apical] 65 Pulse Rate from SpO2 Sensor Pulse Rhythm Regular Pulse Rhythm [Apical] Regular Pulse Strength Normal Pulse Strength [Apical] Normal Respiratory Rate 20 16 16 Respiratory Effort / Characteristics Non-Labored Spontaneous Non-Labored Respiratory Depth Normal Normal Respiratory Pattern Regular Regular Blood Pressure 144/60 H Blood Pressure [Right Arm] 141/51 H Blood Pressure Mean 88 Blood Pressure Mean [Right Arm] 81 Blood Pressure Position Sitting Blood Pressure Position [Right Arm] Lying Pulse Oximetry 92 97 97 Oxygen Delivery Method Room Air Room Air Room Air Sepsis Recent Fever Within 48 Hours No Sepsis New/Unexplained Change in Mental Status No Sepsis Action Taken by Nursing No Action Required 10/31/23 19:20 10/31/23 19:24 Temperature Temperature Source Pulse Rate 69 65 Pulse Rate [Apical] Pulse Rate from SpO2 Sensor 66 Pulse Rhythm Pulse Rhythm [Apical] Pulse Strength Pulse Strength [Apical] Respiratory Rate 15 Respiratory Effort / Characteristics Respiratory Depth Respiratory Pattern Blood Pressure 112/61 Blood Pressure [Right Arm] Blood Pressure Mean 78 Blood Pressure Mean [Right Arm] Blood Pressure Position Blood Pressure Position [Right Arm] Pulse Oximetry 94 Oxygen Delivery Method Room Air Sepsis Recent Fever Within 48 Hours Sepsis New/Unexplained Change in Mental Status Sepsis Action Taken by [facility] Medications Current Medication List: was personally reviewed by me Laboratory Data Attestation: I reviewed the patient's lab results. 10/31/23 17:30 10/31/23 17:30 Lab Results 10/31/23 10/31/23 Range/Units 17:30 17:32 WBC 11.06 H (4.8-10.8) K/ul RBC 3.13 L (4.20-5.40) M/uL Hgb 7.9 L (12.0-16.0) g/dl Hct 25.1 L (37.0-47.0) % MCV 80.2 (80.0-100.0) fL MCH 25.2 (25.0-34.0) pg MCHC 31.5 L (32.0-36.0) g/dL RDW Std Deviation 52.8 H (36.4-46.3) fL RDW Coeff of Alice 18.1 H (11.5-14.5) % Plt Count 446 H (130-400) K/uL MPV 8.9 L (9.4-12.4) fL Immature Gran % (Auto) 0.6 % Neut % (Auto) 80.2 % Lymph % (Auto) 7.7 % [place] % (Auto) 8.0 % Eos % (Auto) 3.0 % Baso % (Auto) 0.5 % Neut # (Auto) 8.88 H (1.40-6.50) K/uL Lymph # (Auto) 0.85 L (1.20-3.40) K/uL [place] # (Auto) 0.88 H (0.11-0.59) K/uL Eos # (Auto) 0.33 (0.00-0.50) K/uL Baso # (Auto) 0.05 (0.00-0.20) K/uL Immature Gran # (Auto) 0.07 (0.01-0.20) K/uL Polychromasia 1+ Ovalocytes 1+ PT 12.5 H (9.0-12.0) Seconds INR 1.2 H (0.9-1.1) APTT 35 H (21-31) Seconds PTT Ratio 1.2 Sodium 128 L (136-145) mmol/L Potassium 4.0 (3.5-5.1) mmol/L Chloride 96 L (98-107) mmol/L Carbon Dioxide 23 (21-32) mmol/L Anion Gap 9 (3-11) BUN 49 H (6-23) mg/dl Creatinine 2.89 H (0.6-1.2) mg/dl Est Cr Clr Drug Dosing Not Reportable Est GFR ( Amer) 17.0 ml/min Est GFR (Non-Af Amer) 14.6 ml/min BUN/Creatinine Ratio 17.0 (10-20) Glucose 167 H (70-99(Fasting)) mg/dl Osmolality 285 (280-300) mOsm/kg Calcium 8.0 L (8.6-10.3) mg/dl Magnesium 2.0 (1.7-2.4) mg/dl Iron TNP TIBC TNP Unsaturated IBC TNP Transferrin % Sat TNP Ferritin 445.4 H (8-388) ng/ml Total Bilirubin 0.9 (0.2-1.0) mg/dl AST 26 (13-39) U/L ALT 20 (7-52) U/L Alkaline Phosphatase 111 H (34-104) U/L Troponin I High Sens 24.7 H (0-14) pg/ml Total Protein 6.2 (6.0-8.3) gm/dl Albumin 2.6 L (3.4-5.0) gm/dl Globulin 3.6 (2.5-4.0) gm/dl Albumin/Globulin Ratio 0.7 L (0.9-2) Lipase 16 (11-82) U/L TSH 8.352 H (0.300-4.500) uIu/ml Free T4 0.92 (0.61-1.60) ng/dl Blood Type A Positive Antibody Screen NEGATIVE Crossmatch See Detail Administered Medications Calcitriol (Calcitriol 0.25 Mcg Capsule) 0.5 mcg PO [id number] NATHALIA Stop: 11/30/23 21:44 Last Admin: 10/31/23 23:02 Dose: 0.5 mcg Documented By: LY Oxycodone/Acetaminophen (Oxycodone/Acetaminophen 5mg/325mg Tab) 1 tab PO BID PRN PRN Reason: pain Stop: 11/14/23 21:41 Last Admin: 10/31/23 23:01 Dose: 1 tab Documented By: GRADY Discontinued Medications Sodium Chloride (Nss) 500 mls @ 999 mls/hr IV .Q31M ONE Stop: 10/31/23 19:19 Last Infusion: 10/31/23 19:50 Dose: Infused Documented By: Admin: 10/31/23 19:16 Dose: 999 mls/hr Documented By: LIDA Discharge Plan Visit Data Chief Complaint: Abnormal Labs/Diagnostic Testing Stated Complaint: LOW HEMOGLOBIN, EXTREME EXHAUSTION ED Provider: Tal Espinoza Discharge Problem: Weakness, Pleural effusion, Hyponatremia, Anemia Patient Disposition: Admitted As Inpatient Condition: Fair Discharge Instructions Interventions: ED Discharge Assessment Last Done: 10/31/23 20:04 Discharge Problem: Anemia Qualifiers: Anemia type: unspecified type Qualified Code(s): D64.9 - Anemia, unspecified
[2023-10-31] MEDS: SODIUM CHLORIDE 0.9% 500 ML IV ONE (19:16)
--- NOTE | 2023-10-31 19:39 | History & Physical Report ---
Date of Service October 31, 2023 Assessment & Plan (1) Anemia: Plan: 83yo female with history of CKD, B12 and Folate deficiency and chronic anemia sent by outpatient provider for decreased in Hgb level. Patient had routine blood work performed which revealed a Hgb of 7.9 (decreased from 9.8 prior). Patient's daughter reports some bloody output from her PleurX catheter last week but otherwise no other source of bleeding. Normochromic/normocytic with MCV=80.2 and MCH=25.2. Patient is on B12 supplementation was last 265 on 08/18/22. She has had injections of erythropoietin in the past - last received 40,000 units on 09/01/23. Patient's iron studies are most financial representative of inflammatory anemia of chronic disease - normal MCV, elevated Ferritin with low Iron, TIBC, Transferrin. -Admit to medical -Transfuse 1u PRBCs -Patient may benefit from ongoing Epogen injections -Repeat CBC in AM (2) Hyponatremia: Plan: Patient appears euvolemic. Family does endorse some recent LE edema but does not appear to be present on today's exam. She has had poor appetite. Patient with chronically elevated BNP, currently 1897. Expect low solute intake possibly contributing? -Check Urine and Serum Osm -Check urine Na (3) Pleural effusion: Plan: Patient with bilateral pleural effusions R > L s/p right PleurX catheter placement. Her catheter is drained every other day - due 11/01/23. Daughter reports that over the last week they have not been able to remove any fluid. Patient has some mild dyspnea on exertion when asked but is not overall complaining of SOB, RIVAS or orthopnea.. Awaiting formal CXR read - question if catheter is kinked based on appearance on CXR? Effusion still present but seems to be somewhat improved from prior. Presently on room air with no distress -Order placed to drain PleurX catheter. If unable to drain would consider Pulmonary consultation to further assess the PleurX (4) Heart failure with preserved ejection fraction: Plan: Chronic. Patient with severe mitral regurgitation. She follows at [facility] -Continue Metoprolol -Continue Isosorbide -Continue Lasix (5) Paroxysmal atrial fibrillation: Plan: Chronic. Patient currently in NSR. -Continue Apixaban 2.5mg po BID - next dose 11/01/23 at 09:00 - if H/H does not appropriately respond to transfusion will hold. -Continue metoprolol 12.5mg po BID -Patient is no longer on Amiodarone (6) COPD (chronic obstructive pulmonary disease): Plan: Chronic. Stable. No cough or wheeze -Continue Albuterol/Ipratropium q 2 hours PRN -Continue home Budesonide/Formoterol or formulary equivalent (7) Chronic kidney disease, stage V: Plan: BUN and Cr near baseline. Patient endorses normal UOP -Continue Calcitriol -Avoid nephrotoxins -Renal dosing where needed (8) Wound of right lower extremity: Plan: Chronic. Overall improving per patient and daughters. She follows at the wound clinic -Continue wound care daily History of Present Illness Chief Complaint: weakness, fatigue, low Hgb Primary Care Provider: Soledad Meier MD Martha Raygoza is an 83yo female with history of PAF on Eliquis anticoagulation, CHF, COPD, CKD, RA, HLP and right sided pleural effusion with Pleur-X catheter in place. Patient reports feeling increased fatigue as well as mild RIVAS and generalized weakness ongoing for the last week. She denies fever, chills, cough, chest pain or abdominal pain. She had a few episodes of diarrhea but denies bloody BM or melena. No urinary complaints. Patient had routine outpatient labs performed which revealed a Hgb of 7.9 and Hct of 25.1 which are decreased from her most recent value of 9.8 and 32.2, respectively on 09/29/23. Patient also with decreased Na from prior - 128 from 135 in September. She denies blood loss - no melena/hematochezia/hematuria or bleeding/bruising. Hemoccult stool testing in the ER today is NEGATIVE. She reports eating and drinking well. Her daughters do report that she has had some mild LE edema lately, mostly of left toes. Patient follows at [facility] for her heart failure. She recently had several medication adjustments. She had her Isosorbide increased from 30mg to 60mg daily (since 10/29/23). She is also being weaned off her Paxil with plans to start her on Remeron for improvement in appetite as well. She has discontinued her Amiodarone and Atorvastatin due to abnormal LFTs. Patient with right sided PleurX catheter in place for chronic effusion. She drain it every other day (is due tomorrow 11/01/23). Daughter states that they typically remove 750mL - 1000mL with each drainage. She had bloody output 2 weeks ago - Hgb at that time was 9. She reports that she has had no output over the last week. She had a CXR performed which confirmed that the PleurX was in place. In the ER she is afebrile, HD stable, NAD. Adequate oxygenation on room air. ER Course: NSS x 500mL Allergies Allergy/AdvReac Type Severity Reaction Status Date / Time adhesive AdvReac Intermediate skin tears Verified 10/31/23 20:17 Sulfa (Sulfonamide AdvReac Intermediate HEADACHE, Verified 10/31/23 20:17 Antibiotics) VERTIGO Home Medications Medication Instructions Recorded Confirmed Type aspirin 81 mg tablet,delayed 81 mg PO HS 07/02/19 10/31/23 History release (Adult Low Dose Aspirin) sennosides 8.6 mg-docusate sodium 1 tab PO BID #60 tabs 08/19/22 10/31/23 Rx 50 mg tablet (Senokot-S) albuterol sulfate 90 mcg/actuation 2 puff inhalation Q6H PRN 11/24/22 10/31/23 Rx aerosol inhaler Shortness Of Breath Or Wheezing #18 grams budesonide-formoterol HFA 160 2 puff inhalation BID #10.2 grams 11/24/22 10/31/23 Rx mcg-4.5 mcg/actuation aerosol inhaler (Symbicort) ipratropium 0.5 mg-albuterol 3 mg 3 ml inhalation Q2H PRN shortness 11/24/22 10/31/23 Rx (2.5 mg base)/3 mL nebulization of breath or wheezing #180 mL soln calcitriol 0.5 mcg capsule 0.5 mcg PO 3XWK #45 caps 12/02/22 10/31/23 Rx apixaban 2.5 mg tablet (Eliquis) 2.5 mg PO BID #180 tabs 01/31/23 10/31/23 Rx polyethylene glycol 3350 17 gram 17 g PO DAILY PRN Constipation 04/21/23 10/31/23 History oral powder packet (Miralax) Over Night Pulse OX #1 ea 05/23/23 09/01/23 Rx Oxygen Home E0424 #1 ea 05/23/23 09/01/23 Rx cyanocobalamin (vitamin B-12) 1,000 mcg PO QAM 08/30/23 10/31/23 History 1,000 mcg capsule melatonin 10 mg tablet 10 mg PO HS 08/30/23 10/31/23 History Lift Chair #1 ea 08/31/23 09/01/23 Rx metoprolol tartrate 25 mg tablet 12.5 mg (1/2 x 25 mg) PO BID #90 09/08/2303/17 Rx tabs clobetasol 0.05 % topical ointment 1 applic EXT DAILY #15 grams 09/22/23 10/31/23 Rx gentamicin 0.1 % topical cream 1 applic EXT DAILY #15 grams 09/22/23 10/31/23 Rx oxycodone-acetaminophen 5 mg-325 0.5 - 1 tab PO BID PRN pain #60 10/20/23 10/31/23 Rx mg tablet tabs furosemide 20 mg tablet 20 mg PO BID #180 tabs 10/24/23 10/31/23 Rx epoetin kole 40,000 unit/mL 40,000 unit subcut UD 10/31/23 10/31/23 History injection solution isosorbide mononitrate 60 mg 60 mg PO QAM 10/31/23 10/31/23 History tablet,extended release 24 hr paroxetine HCl 40 mg tablet 20 mg PO HS 10/31/23 10/31/23 History Past Med/Surg History Medical History (Updated 10/31/23 @ 22:05 by Jazmín Gamboa DO) Anemia B12 deficiency Folate deficiency Hemorrhage from the ear Bilateral pleural effusion Chronic kidney disease, stage V no dialysis; f/u dr. tinsley COPD (chronic obstructive pulmonary disease) Rheumatoid arthritis Slow to wake up after anesthesia happened once time Hx of vertigo "none for quite some time, occurred when taking sulfa for her bladder problems" Mitral regurgitation Acute respiratory failure with hypoxia hx-hospitalized 04/21/23 @[facility] Restrictive lung disease daily inh, inh and neb prn Paroxysmal atrial fibrillation Pleural effusion Acute on chronic diastolic CHF (congestive heart failure) recently hospitalized @[facility] on 04/21/23 Chronic anticoagulation Atrial fibrillation with rapid ventricular response currently on eliquis; f/u 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 Surgical History H/O surgical biopsy 08/18/2023 non-healing lesion left cheek History of esophagogastroduodenoscopy (EGD) Hx of colonoscopy Hx of vein stripping Hx of hysterectomy Family History Mother Blood clot in vein Father Myocardial infarction Sister Blood clot in vein Breast cancer Aunt Blood clot in vein Son Prostate cancer Denies family history of Ovarian cancer Colorectal cancer Social History Smoking Status: Never smoker Second Hand Exposure: No; Do You Dip or Chew Tobacco: No; Hx Alcohol Use: No Hx Substance Use: No Preferred Language: Sinhala Communication Ability: Effective Communication Ability Comment: Patient is hard of hearing at this time and requires a white board. 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 How many Children do You have: 3 How many Children do You have Comment: Sons work close and assist pt with meals Feels Safe at Home: Yes Safety Concerns: Feels Safe At This Time Childhood Exposure to Second-Hand Smoke: Yes Diet: regular caffeine: No Dental Care, Regularly: Yes Physical Activity Frequency: Does not Exercise Seatbelt Use: always Sunscreen Use: Yes Assistive Devices: Hospital Bed and Walker Review of Systems Review of Systems: All systems reviewed & are unremarkable except as noted in HPI & below Physical Exam Physical Exam: General: patient resting comfortably, NAD, non-toxic in appearance, AA&O x 4, mildly hard of hearing Skin: warm, dry, intact, no rashes or lesions HEENT: NC/AT, PERRL, EOMI, anicteric sclera, conjunctiva without injection, external ear normal to inspection and nontender, nares patent, moist mucus membranes, dentition intact, no oropharyngeal lesions, neck supple, trachea midline, no LAD, no thyromegaly, no JVD Heart: +S1/S2, regular, no m/r/g Lungs: equal air entry bilaterally, diminished breath sounds in right base, no rales/rhonchi/wheezes. PleurX catheter in place - dressing clean and dry. Abd: +BS, soft, NT/ND, no masses/organomegaly/ascites Ext: warm, 2+ pulses in UE/LE bilaterally, no clubbing/cyanosis or edema, wound on right [place] with dressing in place - clean/dry/intact Neuro: nonfocal, patient AA&O x 4, speech intact, no facial droop, moving all extremities on command with equal strength 5/5 Results & Data Results & Data Vital Signs (Past 12 Hours) Vital Signs Temp Pulse Pulse Resp BP BP Pulse Ox 10/31/23 19:24 65 10/31/23 18:40 65 16 97 10/31/23 18:40 65 16 141/51 H 97 10/31/23 16:20 36.7 C 64 20 144/60 H 92 O2 Del Method 10/31/23 19:24 10/31/23 18:40 Room Air 10/31/23 18:40 Room Air 10/31/23 16:20 Room Air Laboratory Results Laboratory Results WBC 11.06 K/ul (4.8-10.8) H 10/31/23 17:30 RBC 3.13 M/uL (4.20-5.40) L 10/31/23 17:30 Hgb 7.9 g/dl (12.0-16.0) L 10/31/23 17:30 Hct 25.1 % (37.0-47.0) L 10/31/23 17:30 MCV 80.2 fL (80.0-100.0) 10/31/23 17:30 MCH 25.2 pg (25.0-34.0) 10/31/23 17:30 MCHC 31.5 g/dL (32.0-36.0) L 10/31/23 17:30 RDW Std Deviation 52.8 fL (36.4-46.3) H 10/31/23 17:30 RDW Coeff of [place] 18.1 % (11.5-14.5) H 10/31/23 17:30 Plt Count 446 K/uL (130-400) H 10/31/23 17:30 MPV 8.9 fL (9.4-12.4) L 10/31/23 17:30 Immature Gran % (Auto) 0.6 % 10/31/23 17:30 Neut % (Auto) 80.2 % 10/31/23 17:30 Lymph % (Auto) 7.7 % 10/31/23 17:30 [place] % (Auto) 8.0 % 10/31/23 17:30 Eos % (Auto) 3.0 % 10/31/23 17:30 Baso % (Auto) 0.5 % 10/31/23 17:30 Neut # (Auto) 8.88 K/uL (1.40-6.50) H 10/31/23 17:30 Lymph # (Auto) 0.85 K/uL (1.20-3.40) L 10/31/23 17:30 [place] # (Auto) 0.88 K/uL (0.11-0.59) H 10/31/23 17:30 Eos # (Auto) 0.33 K/uL (0.00-0.50) 10/31/23 17:30 Baso # (Auto) 0.05 K/uL (0.00-0.20) 10/31/23 17:30 Immature Gran # (Auto) 0.07 K/uL (0.01-0.20) 10/31/23 17:30 Polychromasia 1+ 10/31/23 17:30 Ovalocytes 1+ 10/31/23 17:30 PT 12.5 Seconds (9.0-12.0) H 10/31/23 17:30 INR 1.2 (0.9-1.1) H 10/31/23 17:30 APTT 35 Seconds (21-31) H 10/31/23 17:30 PTT Ratio 1.2 10/31/23 17:30 Sodium 128 mmol/L (136-145) L 10/31/23 17:30 Potassium 4.0 mmol/L (3.5-5.1) 10/31/23 17:30 Chloride 96 mmol/L (98-107) L 10/31/23 17:30 Carbon Dioxide 23 mmol/L (21-32) 10/31/23 17:30 Anion Gap 9 (3-11) 10/31/23 17:30 BUN 49 mg/dl (6-23) H 10/31/23 17:30 Creatinine 2.89 mg/dl (0.6-1.2) H 10/31/23 17:30 Est Cr Clr Drug Dosing Not Reportable 10/31/23 17:30 Est GFR ( Amer) 17.0 ml/min 10/31/23 17:30 Est GFR (Non-Af Amer) 14.6 ml/min 10/31/23 17:30 BUN/Creatinine Ratio 17.0 (10-20) 10/31/23 17:30 Glucose 167 mg/dl (70-99(Fasting)) H 10/31/23 17:30 Osmolality 285 mOsm/kg (280-300) 10/31/23 17:32 Calcium 8.0 mg/dl (8.6-10.3) L 10/31/23 17:30 Magnesium 2.0 mg/dl (1.7-2.4) 10/31/23 17:30 Iron 12 mcg/dl (35-150) L 10/31/23 20:46 TIBC 143 mcg/dl (250-450) L 10/31/23 20:46 Unsaturated IBC 131 mcg/dl (155-355) L 10/31/23 20:46 Transferrin % Sat 8 % (15-50) L 10/31/23 20:46 Ferritin 445.4 ng/ml (8-388) H 10/31/23 17:30 Total Bilirubin 0.9 mg/dl (0.2-1.0) 10/31/23 17:30 AST 26 U/L (13-39) 10/31/23 17:30 ALT 20 U/L (7-52) 10/31/23 17:30 Alkaline Phosphatase 111 U/L (34-104) H 10/31/23 17:30 Troponin I High Sens 24.7 pg/ml (0-14) H 10/31/23 17:30 B-Natriuretic Peptide 1897 pg/ml (0-100) H 10/31/23 20:46 Total Protein 6.2 gm/dl (6.0-8.3) 10/31/23 17:30 Albumin 2.6 gm/dl (3.4-5.0) L 10/31/23 17:30 Globulin 3.6 gm/dl (2.5-4.0) 10/31/23 17:30 Albumin/Globulin Ratio 0.7 (0.9-2) L 10/31/23 17:30 Lipase 16 U/L (11-82) 10/31/23 17:30 TSH 8.352 uIu/ml (0.300-4.500) H 10/31/23 17:30 Free T4 0.92 ng/dl (0.61-1.60) 10/31/23 17:30 Urine Color Yellow 10/31/23 Unknown Urine Appearance Clear (Clear) 10/31/23 Unknown Urine pH 5.0 (4.5-7.5) 10/31/23 Unknown Ur Specific [place] 1.011 (1.000-1.030) 10/31/23 Unknown Urine Protein Negative (Negative) 10/31/23 Unknown Urine Glucose (UA) Negative (Negative) 10/31/23 Unknown Urine Ketones Negative (Negative) 10/31/23 Unknown Urine Blood Negative (Negative) 10/31/23 Unknown Urine Nitrite Negative (Negative) 10/31/23 Unknown Urine Bilirubin Negative (Negative) 10/31/23 Unknown Urine Urobilinogen Negative (Negative) 10/31/23 Unknown Ur Leukocyte Esterase Negative (Negative) 10/31/23 Unknown Urine Osmolality 324 mOsm/kg (500-800) L 10/31/23 Unknown Ur Random Sodium 30 mmol/L 10/31/23 Unknown SARS-CoV-2 (PCR) NEGATIVE (Negative) 10/31/23 Unknown Influenza Type A (PCR) Negative (Neg) 10/31/23 Unknown Influenza Type B (PCR) Negative (Neg) 10/31/23 Unknown RSV (RT-PCR) Negative (Neg) 10/31/23 Unknown Blood Type A Positive 10/31/23 17:30 Antibody Screen NEGATIVE 10/31/23 17:30 Crossmatch See Detail 10/31/23 17:30 Diagnostic Findings CXR- per my interpretation - patient with increased lung markings R > L, pleural effusion present, seems slightly improved from prior CXR 10/27/23. Question if catheter is kinked given the sharp angle of the tube? Formal reading is pending ECG Additional Comments: EKG with NSR at 63, normal axis, OE=932, QRS=82, YDj=443, TWI in anterior leads PG Care Time/CCT Total # of Minutes Spent Total Time Spent with Patient: Total time spent is greater than 50% in coordination of care (as documented) at patient's floor/unit and/or counseling patient: Coding Level of Care Code 41303 INT INP/OBS CARE MIN Diagnoses Anemia due to other cause, not classified D64.89 Anemia type: other cause Other causes of anemia: other cause, not classified Hyponatremia E87.1 Pleural effusion J90 Heart failure with preserved ejection fraction I50.30 Paroxysmal atrial fibrillation I48.0 COPD (chronic obstructive pulmonary disease) J44.9 Chronic kidney disease, stage V N18.5 Wound of right lower extremity S81.801A (1) Anemia Anemia type: other cause Other causes of anemia: other cause, not classified Qualified Code(s): D64.89 - Other specified anemias
[2023-10-31] MEDS ORDERED: SODIUM CHLORIDE 0.9% 250 ML IV PRN ×2 (20:02→20:05)
[2023-10-31] MEDS ORDERED: ONDANSETRON INJ 2 MG/ML 2 ML VIAL IV PRN (20:02)
[2023-10-31 20:13] LABS: Influenza A virus by PCR Negative (Neg); Influenza B virus by PCR Negative (Neg); RSV by PCR Negative (Neg); SARS CoV2 RNA(COVID-19) Ceph NEGATIVE (Negative)
[2023-10-31 20:29] LABS: Ferritin 445.4 ng/ml (8-388)
[2023-10-31 21:26] LABS: Appearance Urine Clear (Clear); Bilirubin Urine Negative (Negative); Blood Urine Negative (Negative); Color Urine Yellow; Glucose Urine UA Negative (Negative); Ketones Urine Negative (Negative); Leukocyte Esterase Urine Negative (Negative); Nitrite Urine Negative (Negative); Protein Urine Negative (Negative); Specific Gravity Urine 1.011 (1.000-1.030); Urobilinogen Urine Negative (Negative)
[2023-10-31 21:32] LABS: Iron 12 mcg/dl (35-150); Total Iron Binding Cap Calc 143 mcg/dl (250-450); Transferrin (FE) Percent Satur 8 % (15-50); Unsaturated Iron Binding Cap 131 mcg/dl (155-355)
[2023-10-31] MEDS ORDERED: ALBUTEROL HFA 8 GM INHALER INH PRN (21:42)
[2023-10-31] MEDS ORDERED: POLYETHYLENE (MIRALAX) 17 GM PACK PO PRN (21:42)
[2023-10-31] MEDS ORDERED: ALBUT/IPRATROP 3MG/0.5MG NEB 3 ML VIAL INH PRN (21:42)
[2023-10-31] MEDS: oxyCODONE/ACETAMINOPHEN 5mg/325mg TAB PO PRN (23:01)
[2023-10-31] MEDS: CALCITRIOL 0.25 MCG CAPSULE PO SCH (23:02)
[2023-11-01 08:10] LABS: Hemoglobin 8.9 g/dl (12.0-16.0); Mean Corpuscular Hemoglobin 25.5 pg (25.0-34.0); Mean Corpuscular Hgb Conc 31.8 g/dL (32.0-36.0); Mean Corpuscular Volume 80.2 fL (80.0-100.0); Mean Platelet Volume 8.7 fL (9.4-12.4); Platelet Count 393 K/uL (130-400); RDW Coefficient of Variation 17.2 % (11.5-14.5); RDW Standard Deviation 50.3 fL (36.4-46.3); Red Blood Count 3.49 M/uL (4.20-5.40); White Blood Count 9.84 K/ul (4.8-10.8)
--- NOTE | 2023-11-01 08:15 | XRay Report ---
XR chest 1V portable HISTORY: Weakness. COMPARISON: Chest 10/27/2023. FINDINGS: No pneumothorax. The heart remains enlarged. Small to moderate right pleural effusion and r ight basilar densities, unchanged. There is a trace left pleural effusion also noted. A right basilar pleural catheter is unchanged in position. There is mild pulmonary vascular congestion without overt edema. No acute fractures. IMPRESSION: 1. No change in the cardiomegaly and mild pulmonary vascular congestion. 2. Small right pleural effusion and right basilar pleural drain are again noted. 3. Right basilar densities persist. ACT 112: Negative or not required by law. Electronically signed by: Crescencio Lynch M.D. 11/01/2023 8:14 AM
[2023-11-01 08:38] LABS: Albumin Level 2.4 gm/dl (3.4-5.0); BUN Creatinine Ratio 18.5 (10-20); Bilirubin Direct 0.9 mg/dl (0-0.2); Bilirubin,Total 1.9 mg/dl (0.2-1.0); Creatinine Clr Calc Pharmacy 13.8 ml/min; Est GFR (African American) 17.9 ml/min; Est GFR (Non-African American) 15.5 ml/min; Potassium 3.7 mmol/L (3.5-5.1); Total Protein 5.7 gm/dl (6.0-8.3)
[2023-11-01 08:43] LABS: Troponin I High Sensitivity 26.5 pg/ml (0-14)
[2023-11-01] MEDS ORDERED: FUROSEMIDE 20 MG TAB PO SCH (09:00)
[2023-11-01] MEDS: ISOSORBIDE MONO EXTENDED REL 60 MG TABCR PO SCH (09:05)
[2023-11-01] MEDS: METOPROLOL TARTRATE 25 MG TAB PO SCH (09:05)
[2023-11-01] MEDS: FUROSEMIDE 40 MG/4 ML VIAL IV ONE (09:11)
[2023-11-01] MEDS: FLUTICASONE/VILANTEROL 200/25MCG 14 PUFFS/INHALER INH SCH (09:11)
[2023-11-01] MEDS: APIXABAN 2.5 MG TAB PO SCH (09:11)
[2023-11-01] MEDS: IRON SUCROSE 200 MG in 0.9 % SODIUM CHLORIDE 100 ML IV ONE (09:16)
[2023-11-01] MEDS: IRON SUCROSE 200 MG in 0.9 % SODIUM CHLORIDE 100 ML IV SCH (09:57)
[2023-11-01] MEDS: EPOETIN ALFA 40,000 UNITS/ML VIAL SQ STA (10:33)
--- NOTE | 2023-11-01 13:37 | Nephrology Consultation ---
Date of Consultation November 01, 2023 Assessment & Plan (1) Chronic kidney disease, stage V: (2) Anemia: (3) Pleural effusion: (4) Hyponatremia: (5) Weakness: Plan 83 y o f with Stage 5 CKD, b/l cr 3.6-3.8, eGFR 10-12, unclear etiology for CKD ( presented late and never had biopsy with h/o thromboembolic disease and high risk to stop anticoagulant), admitted with progressive SOB, Hypoxia and recurrent right-sided pleural effusion. . Renal function stable at baseline, electrolyte acceptable. Has mature left BC AV fistula. Renal function staying relatively stable, electrolyte acceptable. No lower extremity edema. Hemoglobin improved to 8.9 this morning. Started on Venofer for iron deficiency. Volume status seems acceptable. -- Resume Lasix 20 mg twice daily. Since that output from the Pleurx catheter has been low lately, consider pulmonologyconsult to decide if she should continue to have the Pleurx catheter or it can be safely removed. --continue calcitriol 0.5 mcg 3 times a week. --Epogen one dose today and continue on IV Venofer daily for total 5 doses. --avoid all NSAIDs, left arm nephrology precaution. Thank you for allowing me to participate in your patient's care. It was a pleasure to see Martha. History of Present Illness Reason for Consultation: stage 5 CKD, Anemia, Rt pleural effusion Attending Physician: Ellie Regalado MD History of Present Illness Ms. Martha Raygoza is a 83-year-old female with PMH significant for stage 5 CKD, HTN, h/o PE, history of recurrent right-sided pleural effusion, admitted to the hospital with generalized weakness, shortness of breath and recent lab showing acute drop in hemoglobin. Nephrology consult requested for management of advanced CKD, anemia. EMR records were reviewed in detail during patient's visit. Discussed over telephone with her son during visit. Martha presented to the hospital yesterday with shortness of breath, progressive generalized weakness over last few days and recent lab finding showing acute drop in hemoglobin. She has chronic anemia with advanced CKD and chronic illnesses, hemoglobin generally stays around 9-9.5, has been on Epogen 40,000 units every 2 weeks. Last Neupogen dose was on 10/19/2023. Lab last week showed drop in hemoglobin from above 9 to 7.4. She denied any active bleeding although there was report for some bloody drainage from her right sided pleural catheter. She was advised to have outpatient lab done for follow-up with iron study. However she presented to ER as overall she was feeling poorly. In ER initial lab showed hemoglobin 7.9. Lab was also notable for acute hyponatremia, serum sodium was 128. Creatinine was close to baseline around 2.7. Lab showed iron deficiency and started on Venofer. She was initially given 5 and mL of IV fluid boluses and she was also given IV Lasix 40 mg twice a day which was stopped this morning. Chest x-ray showed right-sided pleural effusion and mild pulmonary vascular congestion. Overall she reported feeling much better. Hemoglobin improved to 8.9 this morning. Sodium improved to 132. Blood pressure has been fair. Has history of mitral regurgitation, has been following with [facility], no decision to have any surgical intervention at this time. Recently her amiodarone was stopped with the thought that it may be contributing to right- sided pleural effusion. Since then amiodarone was stopped she has been noticing decreased output with Pleurx catheter. Has stage 5 CKD, b/l cr 3.5 to 3.8, eGFR around 10-12 for last almost 5 years.. Urinalysis with no proteinuria, hematuria pyuria. Workup including serological workup and paraproteinemia workup was unremarkable, no hypercalcemia or hypoalbuminemia. Renal ultrasound showed bilateral cortical thinning and atrophic kidneys, no hydronephrosis. No h/o NSAIDs use or autoimmune disease. Never smoker. Retired, lives at home alone, No known f/h of CKD, ESRD. Has mature AVF, placed by Dr. Hernandez on Mar 2020.Renal biopsy was initially planned but cancelled as urinalysis was unremarkable and serological workup was negative and high risk for thromboembolism and or bleeding as anticoagulation would need to be on hold for biopsy. Past medical history also significant for bilateral PE since 2018, thrombophilia workup was unremarkable. 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 H/O colonic polyp last colonoscopy was 2017, varicose vein s/p stripping, recurrent urinary tract infection, anxiety, depression. No HTN, DM, CAD.h/o chronic anemia, hemoglobin 9.0 to 9, on JOSHUA. She was overall feeling well this morning although she reports some nasal congestion but reports shortness of breath improved. Renal function and electrolyte stable. Blood pressure well controlled. Has been voiding normally. Allergies Allergy/AdvReac Type Severity Reaction Status Date / Time adhesive AdvReac Intermediate skin tears Verified 10/31/23 20:17 Sulfa (Sulfonamide AdvReac Intermediate HEADACHE, Verified 10/31/23 20:17 Antibiotics) VERTIGO Home Medications Medication Instructions Recorded Confirmed Type aspirin 81 mg tablet,delayed 81 mg PO HS 07/02/19 10/31/23 History release (Adult Low Dose Aspirin) sennosides 8.6 mg-docusate sodium 1 tab PO BID #60 tabs 08/19/22 10/31/23 Rx 50 mg tablet (Senokot-S) albuterol sulfate 90 mcg/actuation 2 puff inhalation Q6H PRN 11/24/22 10/31/23 Rx aerosol inhaler Shortness Of Breath Or Wheezing #18 grams budesonide-formoterol HFA 160 2 puff inhalation BID #10.2 grams 11/24/22 10/31/23 Rx mcg-4.5 mcg/actuation aerosol inhaler (Symbicort) ipratropium 0.5 mg-albuterol 3 mg 3 ml inhalation Q2H PRN shortness 11/24/22 10/31/23 Rx (2.5 mg base)/3 mL nebulization of breath or wheezing #180 mL soln calcitriol 0.5 mcg capsule 0.5 mcg PO 3XWK #45 caps 12/02/22 10/31/23 Rx apixaban 2.5 mg tablet (Eliquis) 2.5 mg PO BID #180 tabs 01/31/23 10/31/23 Rx polyethylene glycol 3350 17 gram 17 g PO DAILY PRN Constipation 04/21/23 10/31/23 History oral powder packet (Miralax) Over Night Pulse OX #1 ea 05/23/23 09/01/23 Rx Oxygen Home E0424 #1 ea 05/23/23 09/01/23 Rx cyanocobalamin (vitamin B-12) 1,000 mcg PO QAM 08/30/23 10/31/23 History 1,000 mcg capsule melatonin 10 mg tablet 10 mg PO HS 08/30/23 10/31/23 History Lift Chair #1 ea 08/31/23 09/01/23 Rx metoprolol tartrate 25 mg tablet 12.5 mg (1/2 x 25 mg) PO BID #90 09/08/23 10/31/23 Rx tabs clobetasol 0.05 % topical ointment 1 applic EXT DAILY #15 grams 09/22/23 10/31/23 Rx gentamicin 0.1 % topical cream 1 applic EXT DAILY #15 grams 09/22/23 10/31/23 Rx oxycodone-acetaminophen 5 mg-325 0.5 - 1 tab PO BID PRN pain #60 10/20/23 10/31/23 Rx mg tablet tabs furosemide 20 mg tablet 20 mg PO BID #180 tabs 10/24/23 10/31/23 Rx epoetin kole 40,000 unit/mL 40,000 unit subcut UD 10/31/23 10/31/23 History injection solution isosorbide mononitrate 60 mg 60 mg PO QAM 10/31/23 10/31/23 History tablet,extended release 24 hr paroxetine HCl 40 mg tablet 20 mg PO HS 10/31/23 10/31/23 History Patient History Medical History Anemia B12 deficiency Folate deficiency Hemorrhage from the ear Bilateral pleural effusion Chronic kidney disease, stage V no dialysis; f/u dr. tinsley COPD (chronic obstructive pulmonary disease) Rheumatoid arthritis Slow to wake up after anesthesia happened once time Hx of vertigo "none for quite some time, occurred when taking sulfa for her bladder problems" Mitral regurgitation Acute respiratory failure with hypoxia hx-hospitalized 04/21/23 @[facility] Restrictive lung disease daily inh, inh and neb prn Paroxysmal atrial fibrillation Pleural effusion Acute on chronic diastolic CHF (congestive heart failure) recently hospitalized @[facility] on 04/21/23 Chronic anticoagulation Atrial fibrillation with rapid ventricular response currently on eliquis; f/u dr. 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 Surgical History H/O surgical biopsy 08/18/2023 non-healing lesion left cheek History of esophagogastroduodenoscopy (EGD) Hx of colonoscopy Hx of vein stripping Hx of hysterectomy Family History Mother Blood clot in vein Father Myocardial infarction Sister Blood clot in vein Breast cancer Aunt Blood clot in vein Son Prostate cancer Denies family history of Ovarian cancer Colorectal cancer Social History Smoking Status: Never smoker Second Hand Exposure: No; Do You Dip or Chew Tobacco: No; Hx Alcohol Use: No Hx Substance Use: No Preferred Language: Estonian Communication Ability: Effective Communication Ability Comment: Patient is hard of hearing at this time and requires a white board. 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 Results & Data Vital Signs (Past 12 Hours) Vital Signs Temp Pulse Resp BP Pulse Ox O2 Del Method 11/01/23 09:51 123/63 11/01/23 07:40 36.9 C 62 16 132/59 L 92 Room Air PG Care Time/CCT Total # of Minutes Spent Total Time Spent with Patient: Total time spent is greater than 50% in coordination of care (as documented) at patient's floor/unit and/or counseling patient: Coding Level of Care Code 29388 INT INP/OBS CARE 3/75MIN Diagnoses Chronic kidney disease, stage V N18.5 Anemia D64.9 Anemia type: unspecified type Pleural effusion J90 Hyponatremia E87.1 Weakness R53.1 (2) Anemia Anemia type: unspecified type Qualified Code(s): D64.9 - Anemia, unspecified
--- NOTE | 2023-11-01 17:53 | Hospitalist Progress Note ---
Date of Service November 01, 2023 Assessment & Plan (1) Anemia: Plan: 83yo female with history of CKD, B12 and Folate deficiency and chronic anemia sent by outpatient provider for decreased in Hgb level. Patient had routine blood work performed which revealed a Hgb of 7.9 (decreased from 9.8 prior). Patient's daughter reports some bloody output from her PleurX catheter last week but otherwise no other source of bleeding. Normochromic/normocytic with MCV=80.2 and MCH=25.2. Patient is on B12 supplementation was last 265 on 08/18/22. She has had injections of erythropoietin in the past - last received 40,000 units on 09/01/23. Patient's iron studies are most licensing representative of inflammatory anemia of chronic disease - normal MCV, elevated Ferritin with low Iron, TIBC, Transferrin. -Admit to medical -Transfused 1u PRBCs -Patient may benefit from ongoing Epogen injections -Hgb 8.9 (2) Hyponatremia: Plan: Patient appears euvolemic. Family does endorse some recent LE edema but does not appear to be present on today's exam. She has had poor appetite. Patient with chronically elevated BNP, currently 1897. Expect low solute intake possibly contributing? Na 132 monitor (3) Pleural effusion: Plan: Patient with bilateral pleural effusions R > L s/p right PleurX catheter placement. Her catheter is drained every other day - due 11/01/23. Daughter reports that over the last week they have not been able to remove any fluid. Patient has some mild dyspnea on exertion when asked but is not overall complaining of SOB, RIVAS or orthopnea.. Awaiting formal CXR read - question if catheter is kinked based on appearance on CXR? Effusion still present but seems to be somewhat improved from prior. Presently on room air with no distress -Order placed to drain PleurX catheter. If unable to drain would consider Pulmonary consultation to further assess the PleurX (4) Heart failure with preserved ejection fraction: Plan: Chronic. Patient with severe mitral regurgitation. She [facility] at [facility] -Continue Metoprolol -Continue Isosorbide -Continue Lasix (5) Paroxysmal atrial fibrillation: Plan: Chronic. Patient currently in NSR. -Continue Apixaban 2.5mg po BID - next dose 11/01/23 at 09:00 - if H/H does not appropriately respond to transfusion will hold. -Continue metoprolol 12.5mg po BID -Patient is no longer on Amiodarone (6) COPD (chronic obstructive pulmonary disease): Plan: Chronic. Stable. No cough or wheeze -Continue Albuterol/Ipratropium q 2 hours PRN -Continue home Budesonide/Formoterol or formulary equivalent (7) Chronic kidney disease, stage V: Plan: BUN and Cr near baseline. Patient endorses normal UOP -Continue Calcitriol -Avoid nephrotoxins -Renal dosing where needed - nephrology input appreciated (8) Wound of right lower extremity: Plan: Chronic. Overall improving per patient and daughters. She follows at the wound clinic -Continue wound care daily continue wound care Admission and Anticipated Discharge Date Admission Date: October 31, 2023 Subjective reports feeling better , received 1 unit of blood , iv venofer, iv lasix Review of Systems Review of Systems: All systems reviewed & are unremarkable except as noted in HPI & below Physical Exam Physical Exam: head atraumatic neck supple chest decreased breath sounds right base heart s1s2 regular abdomen soft, NT, ND , BS present extremities no clubbing, no edema Results & Data Results & Data Vital Signs (Past 12 Hours) Vital Signs Temp Pulse Resp BP Pulse Ox O2 Del Method 11/01/23 15:40 36.7 C 59 L 14 118/57 L 92 Room Air 11/01/23 09:51 123/63 11/01/23 07:40 36.9 C 62 16 132/59 L 92 Room Air PG Care Time/CCT Total # of Minutes Spent Total Time Spent with Patient: Total time spent is greater than 50% in coordination of care (as documented) at patient's floor/unit and/or counseling patient: Coding Level of Care Code 05876 SUB INP/OBS CARE 235MIN Diagnoses Anemia due to other cause, not classified D64.89 Anemia type: other cause Other causes of anemia: other cause, not classified Hyponatremia E87.1 Pleural effusion J90 Heart failure with preserved ejection fraction I50.30 Paroxysmal atrial fibrillation I48.0 COPD (chronic obstructive pulmonary disease) J44.9 Chronic kidney disease, stage V N18.5 Wound of right lower extremity S81.801A (1) Anemia Anemia type: other cause Other causes of anemia: other cause, not classified Qualified Code(s): D64.89 - Other specified anemias
[2023-11-01] MEDS: GENTAMICIN SULFATE 0.1% CR 15 GM TUBE EXT SCH (18:52)
[2023-11-01] MEDS: CLOBETASOL PROPIONATE 0.05% OINT 15 GM TUBE EXT SCH (18:53)
[2023-11-01] MEDS: ASPIRIN 81 MG ECTAB PO SCH (20:06)
[2023-11-01] MEDS: PARoxetine HCL 20 MG TAB PO SCH (20:08)
[2023-11-01] MEDS: MELATONIN 3 MG TAB PO SCH (20:08)
[2023-11-02 08:13] LABS: Hematocrit (blood only) 25.9 % (37.0-47.0); Hemoglobin 8.1 g/dl (12.0-16.0); Mean Corpuscular Hemoglobin 25.5 pg (25.0-34.0); Mean Corpuscular Hgb Conc 31.3 g/dL (32.0-36.0); Mean Corpuscular Volume 81.4 fL (80.0-100.0); Mean Platelet Volume 8.9 fL (9.4-12.4); Platelet Count 367 K/uL (130-400); RDW Coefficient of Variation 17.3 % (11.5-14.5); RDW Standard Deviation 50.6 fL (36.4-46.3); Red Blood Count 3.18 M/uL (4.20-5.40); White Blood Count 10.02 K/ul (4.8-10.8)
[2023-11-02 08:32] LABS: Albumin Globulin Ratio 0.7 (0.9-2); Albumin Level 2.2 gm/dl (3.4-5.0); BUN Creatinine Ratio 18.3 (10-20); Bilirubin,Total 1.1 mg/dl (0.2-1.0); Calcium 7.9 mg/dl (8.6-10.3); Creatinine Clr Calc Pharmacy 13.1 ml/min; Est GFR (African American) 16.9 ml/min; Est GFR (Non-African American) 14.6 ml/min; Potassium 3.8 mmol/L (3.5-5.1); Total Protein 5.2 gm/dl (6.0-8.3)
[2023-11-02 11:21] LABS: Basophils # (auto) 0.07 K/uL (0.00-0.20); Basophils % (auto) 0.6 %; Eosinophils # (auto) 0.33 K/uL (0.00-0.50); Hemoglobin 8.4 g/dl (12.0-16.0); Immature Granulocytes # (auto) 0.12 K/uL (0.01-0.20); Immature Granulocytes % (auto) 1.1 %; Lymphocytes # (auto) 1.09 K/uL (1.20-3.40); Lymphocytes % (auto) 9.9 %; Mean Corpuscular Hemoglobin 25.5 pg (25.0-34.0); Mean Corpuscular Hgb Conc 32.3 g/dL (32.0-36.0); Mean Platelet Volume 8.8 fL (9.4-12.4); Monocytes # (auto) 1.06 K/uL (0.11-0.59); Monocytes % (auto) 9.6 %; Neutrophils # (auto) 8.34 K/uL (1.40-6.50); Neutrophils % (auto) 75.8 %; Platelet Count 390 K/uL (130-400); RDW Coefficient of Variation 17.3 % (11.5-14.5); RDW Standard Deviation 50.4 fL (36.4-46.3); Red Blood Count 3.29 M/uL (4.20-5.40); White Blood Count 11.01 K/ul (4.8-10.8)
--- NOTE | 2023-11-02 12:25 | Nephrology Progress Note ---
Date of Service November 02, 2023 Assessment & Plan (1) Chronic kidney disease, stage V: (2) Anemia: (3) Pleural effusion: (4) Hyponatremia: (5) Weakness: Plan 83 y o f with Stage 5 CKD, b/l cr 3.6-3.8, eGFR 10-12, unclear etiology for CKD ( presented late and never had biopsy with h/o thromboembolic disease and high risk to stop anticoagulant), admitted with progressive SOB, Hypoxia and recurrent right-sided pleural effusion. . Renal function stable at baseline, electrolyte acceptable. Has mature left BC AV fistula. Renal function staying relatively stable. No lower extremity edema. Hemoglobin again dropped to 8.4 this morning. Started on Venofer for iron defi ciency. Volume status seems acceptable. --If discharge anticipated later today, would recommend repeating the hemoglobin prior to discharge to make sure it does not continue to trend down. Continue on Venofer to complete total 5 doses however if she gets discharged prior to that suggest to try to schedule for rest of the doses with MTU otherwise we will arrange that from CKD clinic. --continue calcitriol 0.5 mcg 3 times a week. --Epogen one dose of 40,000 units given yesterday, next dose will be given in 2 weeks as an outpatient --avoid all NSAIDs, left arm nephrology precaution. Admission and Anticipated Discharge Date Admission Date: October 31, 2023 Desiree Thomas was seen and evaluated this morning. She reports overall feeling well, denies shortness of breath. Blood pressures staying relatively low. Hemoglobin slightly improved to 8.9 yesterday after 1 unit of blood transfusion but dropped again to 8.4 this morning although she denied any symptoms suggestive of active bleeding. Kidney function staying relatively stable, albumin has been low. She reports taking protein supplement. Review of Systems Review of Systems: Detailed review of system was done and pertinent positives and negatives are mentioned above. Physical Exam Constitutional: WD/WN, vitals as above + underweight; no acute distress Eyes: + anicteric sclerae Neck: normal visual inspection Respiratory: no respiratory distress Auscultation: + crackles Cardiovascular: Rate/Rhythm: regular rate and regular rhythm Heart Sounds: + murmur Extremities: + AV fistula (left BC AVF ); no edema Musculoskeletal: Extremities: extremities normal to inspection Skin: + turgor decreased; no rashes and no les ions Neurologic: no focal motor deficits Psychiatric: Orientation: alert and oriented x 3 Affect: euthymic affect Results & Data Vital Signs (Past 12 Hours) Vital Signs Temp Pulse Resp BP Pulse Ox O2 Del Method 11/02/23 07:20 36.8 C 61 18 115/36 L 91 Room Air PG Care Time/CCT Total # of Minutes Spent Total Time Spent with Patient: Total time spent is greater than 50% in coordination of care (as documented) at patient's floor/unit and/or counseling patient: Coding Level of Care Code 23241 SUB INP/OBS CARE 2/35MIN Diagnoses Chronic kidney disease, stage V N18.5 Anemia D64.9 Anemia type: unspecified type Pleural effusion J90 Hyponatremia E87.1 Weakness R53.1 (2) Anemia Anemia type: unspecified type Qualified Code(s): D64.9 - Anemia, unspecified
[2023-11-02 14:43] LABS: Basophils # (auto) 0.05 K/uL (0.00-0.20); Basophils % (auto) 0.5 %; Eosinophils % (auto) 3.3 %; Hematocrit (blood only) 25.8 % (37.0-47.0); Immature Granulocytes # (auto) 0.08 K/uL (0.01-0.20); Immature Granulocytes % (auto) 0.9 %; Lymphocytes # (auto) 0.78 K/uL (1.20-3.40); Lymphocytes % (auto) 8.5 %; Mean Corpuscular Hemoglobin 25.8 pg (25.0-34.0); Mean Corpuscular Volume 83.2 fL (80.0-100.0); Mean Platelet Volume 9.1 fL (9.4-12.4); Monocytes # (auto) 0.94 K/uL (0.11-0.59); Monocytes % (auto) 10.3 %; Neutrophils % (auto) 76.5 %; Platelet Count 405 K/uL (130-400); RDW Coefficient of Variation 17.6 % (11.5-14.5); RDW Standard Deviation 53.4 fL (36.4-46.3); White Blood Count 9.15 K/ul (4.8-10.8)
--- NOTE | 2023-11-02 15:05 | Hospitalist Progress Note ---
Date of Service November 02, 2023 Assessment & Plan (1) Anemia: Plan: 83yo female with history of CKD, B12 and Folate deficiency and chronic anemia sent by outpatient provider for decreased in Hgb level. Patient had routine blood work performed which revealed a Hgb of 7.9 (decreased from 9.8 prior). Patient's daughter reports some bloody output from her PleurX catheter last week but otherwise no other source of bleeding. Normochromic/normocytic with MCV=80.2 and MCH=25.2. Patient is on B12 supplementation was last 265 on 08/18/22. She has had injections of erythropoietin in the past - last received 40,000 units on 09/01/23. Patient's iron studies are most passenger relations representative of inflammatory anemia of chronic disease - normal MCV, elevated Ferritin with low Iron, TIBC, Transferrin. -Admit to medical -Transfused 1u PRBCs -Patient may benefit from ongoing Epogen injections -Hgb 8.9 ->8.0, on IV iron (2) Hyponatremia: Plan: Patient appears euvolemic. Family does endorse some recent LE edema but does not appear to be present on today's exam. She has had poor appetite. Patient with chronically elevated BNP, currently 1897. Expect low solute intake possibly contributing? Na 132 monitor (3) Pleural effusion: Plan: Patient with bilateral pleural effusions R > L s/p right PleurX catheter placement. Her catheter is drained every other day - due 11/01/23. Daughter reports that over the last week they have not been able to remove any fluid. Patient has some mild dyspnea on exertion when asked but is not overall com plaining of SOB, IRVAS or orthopnea.. Awaiting formal CXR read - question if catheter is kinked based on appearance on CXR? Effusion still present but seems to be somewhat improved from prior. Presently on room air with no distress -Order placed to drain PleurX catheter. If unable to drain would consider Pulmonary consultation to further assess the PleurX (4) Heart failure with preserved ejection fraction: Plan: acute on chronic CHF, diastolic dysfunction , stable Chronic. Patient with severe mitral regurgitation. She follows at [facility] -Continue Metoprolol -Continue Isosorbide -Continue Lasix (5) Paroxysmal atrial fibrillation: Plan: Chronic. Patient currently in NSR. -Continue Apixaban 2.5mg po BID - next dose 11/01/23 at 09:00 - if H/H does not appropriately respond to transfusion will hold. -Continue metoprolol 12.5mg po BID -Patient is no longer on Amiodarone (6) COPD (chronic obstructive pulmonary disease): Plan: Chronic. Stable. No cough or wheeze -Continue Albuterol/Ipratropium q 2 hours PRN -Continue home Budesonide/Formoterol or formulary equivalent (7) Chronic kidney disease, stage V: Plan: BUN and Cr near baseline. Patient endorses normal UOP -Continue Calcitriol -Avoid nephrotoxins -Renal dosing where needed - nephrology input appreciated continue Lasix 20 mg bid (8) Wound of right lower extremity: Plan: Chronic. Overall improving per patient and daughters. She follows at the wound clinic -Continue wound care daily continue wound care (9) Hypothyroidism (acquired): Plan: elevated TSH, obtain T3, T4 Admission and Anticipated Discharge Date Admission Date: October 31, 2023 Desiree Thomas was seen and evaluated this morning. She reports overall feeling well, denies shortness of breath. Blood pressures staying relatively low. Hemoglobin slightly improved to 8.9 yesterday after 1 unit of blood transfusion but dropped again to 8.4 this morning although she denied any symptoms suggestive of active bleeding. Kidney function staying relatively stable, albumin has been low. She reports taking protein supplement. Review of Systems Review of Systems: All systems reviewed & are unremarkable except as noted in HPI & below Physical Exam Physical Exam: head atraumatic neck supple chest decreased breath sounds right base heart s1s2 regular abdomen soft, NT, ND , BS present extremities no clubbing, no edema Results & Data Results & Data Vital Signs (Past 12 Hours) Vital Signs Temp Pulse Resp BP Pulse Ox O2 Del Method 11/02/23 13:31 36.5 C 68 18 160/65 H 97 Room Air 11/02/23 07:20 36.8 C 61 18 115/36 L 91 Room Air PG Care Time/CCT Total # of Minutes Spent Total Time Spent with Patient: Total time spent is greater than 50% in coordination of care (as documented) at patient's floor/unit and/or counseling patient: Coding Level of Care Code 80883 SUB INP/OBS CARE 2/35MIN Diagnoses Anemia due to other cause, not classified D64.89 Anemia type: other cause Other causes of anemia: other cause, not classified Hyponatremia E87.1 Pleural effusion J90 Heart failure with preserved ejection fraction I50.30 Paroxysmal atrial fibrillation I48.0 COPD (chronic obstructive pulmonary disease) J44.9 Chronic kidney disease, stage V N18.5 Wound of right lower extremity S81.801A Hypothyroidism (acquired) E03.9 (1) Anemia Anemia type: other cause Other causes of anemia: other cause, not classified Qualified Code(s): D64.89 - Other specified anemias
[2023-11-02] MEDS: FUROSEMIDE 20 MG TAB PO SCH (16:31)
[2023-11-02] MEDS: ACETAMINOPHEN 325 MG TAB PO PRN (20:53)
[2023-11-03] MEDS: oxyCODONE/ACETAMINOPHEN 5mg/325mg TAB PO PRN (01:47)
[2023-11-03 08:23] LABS: Basophils # (auto) 0.09 K/uL (0.00-0.20); Eosinophils # (auto) 0.51 K/uL (0.00-0.50); Eosinophils % (auto) 5.6 %; Hemoglobin 8.5 g/dl (12.0-16.0); Immature Granulocytes # (auto) 0.11 K/uL (0.01-0.20); Immature Granulocytes % (auto) 1.2 %; Lymphocytes # (auto) 1.01 K/uL (1.20-3.40); Lymphocytes % (auto) 11.1 %; Mean Corpuscular Hemoglobin 25.6 pg (25.0-34.0); Mean Corpuscular Hgb Conc 31.5 g/dL (32.0-36.0); Mean Corpuscular Volume 81.3 fL (80.0-100.0); Mean Platelet Volume 9.1 fL (9.4-12.4); Monocytes # (auto) 0.99 K/uL (0.11-0.59); Monocytes % (auto) 10.9 %; Neutrophils # (auto) 6.39 K/uL (1.40-6.50); Neutrophils % (auto) 70.2 %; Platelet Count 430 K/uL (130-400); RDW Coefficient of Variation 17.5 % (11.5-14.5); RDW Standard Deviation 52.1 fL (36.4-46.3); Red Blood Count 3.32 M/uL (4.20-5.40)
[2023-11-03 08:41] LABS: Albumin Globulin Ratio 0.7 (0.9-2); Albumin Level 2.3 gm/dl (3.4-5.0); BUN Creatinine Ratio 18.5 (10-20); Bilirubin,Total 0.9 mg/dl (0.2-1.0); Calcium 8.1 mg/dl (8.6-10.3); Creatinine Clr Calc Pharmacy 12.6 ml/min; Est GFR (African American) 16.1 ml/min; Est GFR (Non-African American) 13.9 ml/min; Globulin 3.3 gm/dl (2.5-4.0); Potassium 3.5 mmol/L (3.5-5.1); Total Protein 5.6 gm/dl (6.0-8.3)
--- NOTE | 2023-11-03 12:12 | Nephrology Progress Note ---
Date of Service November 03, 2023 Assessment & Plan (1) Chronic kidney disease, stage V: (2) Anemia: (3) Pleural effusion: (4) Hyponatremia: (5) Weakness: Plan 83 y o f with Stage 5 CKD, b/l cr 3.6-3.8, eGFR 10-12, unclear etiology for CKD ( presented late and never had biopsy with h/o thromboembolic disease and high risk to stop anticoagulant), admitted with progressive SOB, Hypoxia and recurrent right-sided pleural effusion. . Renal function stable at baseline, electrolyte acceptable. Has mature left BC AV fistula. Renal function staying relatively stable. No lower extremity edema. Hemoglobin staying low but relatively stable, 8.5 this morning, on Venofer for i isrrael deficiency. Volume status seems acceptable. -- if she gets discharged suggest to try to schedule for rest of the doses on venofer with [facility] if possible, otherwise we will arrange that from CKD clinic. --continue calcitriol 0.5 mcg 3 times a week. --Epogen one dose of 40,000 units given on 11/01/23, next dose will be given in 2 weeks as an outpatient --avoid all NSAIDs, left arm nephrology precaution. Admission and Anticipated Discharge Date Admission Date: October 31, 2023 Desiree Thomas was seen and evaluated this morning. She reports overall feeling well, in fact feeling better than yesterday, denies shortness of breath. Blood pressures fair. Hemoglobin slightly improved to 8.5. Kidney function staying relatively stable, albumin has been low, on protein supplement. Review of Systems Review of Systems: Detailed review of system was done and pertinent positives and negatives are mentioned above. Physical Exam Constitutional: WD/WN, vitals as above + underweight; no acute distress Eyes: + anicteric sclerae Neck: normal visual inspection Respiratory: no respiratory distress Auscultation: + crackles Cardiovascular: Rate/Rhythm: regular rate and regular rhythm Heart Sounds: + murmur Extremities: + AV fistula (left BC AVF ); no edema Musculoskeletal: Extremities: extremities normal to inspection Skin: + turgor decreased; no rashes and no les ions Neurologic: no focal motor deficits Psychiatric: Orientation: alert and oriented x 3 Affect: euthymic affect Results & Data Vital Signs (Past 12 Hours) Vital Signs Temp Pulse Pulse Resp BP Pulse Ox O2 Del Method 11/03/23 10:45 59 L 127/58 L 11/03/23 10:30 61 121/44 L 11/03/23 10:00 58 L 116/45 L 11/03/23 07:53 36.8 C 58 L 16 124/57 L 95 Room Air PG Care Time/CCT Total # of Minutes Spent Total Time Spent with Patient: Total time spent is greater than 50% in coordination of care (as documented) at patient's floor/unit and/or counseling patient: Coding Level of Care Code 12169 SUB INP/OBS CARE 2/35MIN Diagnoses Chronic kidney disease, stage V N18.5 Anemia D64.9 Anemia type: unspecified type Pleural effusion J90 Hyponatremia E87.1 Weakness R53.1 (2) Anemia Anemia type: unspecified type Qualified Code(s): D64.9 - Anemia, unspecified
--- NOTE | 2023-11-03 12:29 | Discharge Summary ---
Date of Service November 03, 2023 Admission HPI Per Admitting Provider Martha Raygoza is an 83yo female with history of PAF on Eliquis anticoagulation, CHF, COPD, CKD, RA, HLP and right sided pleural effusion with Pleur-X catheter in place. Patient reports feeling increased fatigue as well as mild RIVAS and generalized weakness ongoing for the last week. She denies fever, chills, cough, chest pain or abdominal pain. She had a few episodes of diarrhea but denies bloody BM or melena. No urinary complaints. Patient had routine outpatient labs performed which revealed a Hgb of 7.9 and Hct of 25.1 which are decreased from her most recent value of 9.8 and 32.2, respectively on 09/29/23. Patient also with decreased Na from prior - 128 from 135 in September. She denies blood loss - no melena/hematochezia/hematuria or bleeding/bruising. Hemoccult stool testing in the ER today is NEGATIVE. She reports eating and drinking well. Her daughters do report that she has had some mild LE edema lately, mostly of left toes. Patient follows at [facility] for her heart failure. She recently had several medication adjustments. She had her Isosorbide increased from 30mg to 60mg daily (since 10/29/23). She is also being weaned off her Paxil with plans to start her on Remeron for improvement in appetite as well. She has discontinued her Amiodarone and Atorvastatin due to abnormal LFTs. Patient with right sided PleurX catheter in place for chronic effusion. She drain it every other day (is due tomorrow 11/01/23). Daughter states that they typically remove 750mL - 1000mL with each drainage. She had bloody output 2 weeks ago - Hgb at that time was 9. She reports that she has had no output over the last week. She had a CXR performed which confirmed that the PleurX was in place. patient received blood transfusion, IV Iron, hemoglobin is stable 8.5 , no signs of bleeding, denies SOB, will continue other home meds Principal Diagnosis anemia Discharge Exam head atraumatic neck supple chest decreased breath sounds right base heart s1s2 regular abdomen soft, NT, ND , BS present extremities no clubbing, no edema Discharge Data Allergies Allergy/AdvReac Type Severity Reaction Status Date / Time adhesive AdvReac Intermediate skin tears Verified 10/31/23 20:17 Sulfa (Sulfonamide AdvReac Intermediate HEADACHE, Verified 10/31/23 20:17 Antibiotics) VERTIGO Consultations 10/31/23 19:01 ED Decision to Admit Stat 11/01/23 08:43 Consult Nephrology Routine 11/01/23 08:46 Consult Oncology Routine Hospital Course (1) Anemia: 83yo female with history of CKD, B12 and Folate deficiency and chronic anemia sent by outpatient provider for decreased in Hgb level. Patient had routine blood work performed which revealed a Hgb of 7.9 (decreased from 9.8 prior). Patient's daughter reports some bloody output from her PleurX catheter last week but otherwise no other source of bleeding. Normochromic/normocytic with MCV=80.2 and MCH=25.2. Patient is on B12 s upplementation was last 265 on 08/18/22. She has had injections of erythropoietin in the past - last received 40,000 units on 09/01/23. Patient's iron studies are most sales representative jewelry of inflammatory anemia of chronic disease - normal MCV, elevated Ferritin with low Iron, TIBC, Transferrin. -Admit to medical -Transfused 1u PRBCs -Patient may benefit from ongoing Epogen injections -Hgb 8.9 ->8.0, on IV iron -hgb 8.5 today, stable (2) Hyponatremia: Patient appears euvolemic. Family does endorse some recent LE edema but does not appear to be present on today's exam. She has had poor appetite. Patient with chronically elevated BNP, currently 1897. Expect low solute intake possibly contributing? Na 132 monitor (3) Pleural effusion: Patient with bilateral pleural effusions R > L s/p right PleurX catheter placement. Her catheter is drained every other day - due 11/01/23. Daughter reports that over the last week they have not been able to remove any fluid. Patient has some mild dyspnea on exertion when asked but is not overall complaining of SOB, RIVAS or orthopnea.. Awaiting formal CXR read - question if catheter is kinked based on appearance on CXR? Effusion still present but seems to be somewhat improved from prior. Presently on room air with no distress -Order placed to drain PleurX catheter. If unable to drain would consider Pulmonary consultation to further assess the PleurX (4) Heart failure with preserved ejection fraction: acute on chronic CHF, diastolic dysfunction , stable Chronic. Patient with severe mitral regurgitation. She follows at [facility] -Continue Metoprolol -Continue Isosorbide -Continue Lasix (5) Paroxysmal atrial fibrillation: Chronic. Patient currently in NSR. -Continue Apixaban 2.5mg po BID - next dose 11/01/23 at 09:00 - if H/H does not appropriately respond to transfusion will hold. -Continue metoprolol 12.5mg po BID -Patient is no longer on Amiodarone (6) COPD (chronic obstructive pulmonary disease): Chronic. Stable. No cough or wheeze -Continue Albuterol/Ipratropium q 2 hours PRN -Continue home Budesonide/Formoterol or formulary equivalent (7) Chronic kidney disease, stage V: BUN and Cr near baseline. Patient endorses normal UOP -Continue Calcitriol -Avoid nephrotoxins -Renal dosing where needed - nephrology input appreciated continue Lasix 20 mg bid (8) Wound of right lower extremity: Chronic. Overall improving per patient and daughters. She follows at the wound clinic -Continue wound care daily continue wound care (9) Hypothyroidism (acquired): elevated TSH, T3 is minimally decreased, t4 is WNL, follow up as outpatient Plan discharge home Total Time Total Time Spent Total Time Spent (In Minutes): 40 minutes Discharge Plan Discharge Items Patient Disposition: Home - Self-Care Reason For Visit: ANEMIA, HYPONATREMIA Discharge Diagnosis: anemia Condition on Discharge: Fair Activity: Resume your previous activity Non-emergency contact: Otolaryngology Rep Call non-emergency contact if: you have any medication questions and your symptoms worsen Follow-up/Referrals: Soledad Meier MD [Primary Care Provider] - 11/10/23 10:30 am Diet: Heart Healthy Addtl Attending Provider Instructions: iv iron as outpatient Pending Studies at Discharge: No Stand-Alone Forms: [employer] [place], Smoking Cessation Medications and DC Order Prescriptions: Continued aspirin [Adult Low Dose Aspirin] 81 mg tablet,delayed release (DR/EC) 81 mg PO HS calcitriol 0.5 mcg capsule 0.5 mcg PO 3XWK Qty: 45 3RF Rx Instructions: TAKE MON, WED, & FRI. IN THE HS. metoprolol tartrate 25 mg tablet 12.5 mg PO BID Qty: 90 3RF furosemide 20 mg tablet 20 mg PO BID Qty: 180 3RF Rx Instructions: Per daughter, can take extra prn albuterol sulfate 90 mcg/actuation HFA aerosol inhaler 2 puff INH Q6H PRN (Reason: Shortness Of Breath Or Wheezing) Qty: 18 4RF Symbicort 160-4.5 mcg/actuation HFA aerosol inhaler 2 puff INH BID Qty: 10.2 8RF ipratropium-albuterol 0.5 mg-3 mg(2.5 mg base)/3 mL solution for nebulization 3 ml inhalation Q2H PRN (Reason: shortness of breath or wheezing) Qty: 180 3RF Eliquis 2.5 mg tablet 2.5 mg PO BID Qty: 180 3RF oxycodone-acetaminophen 5-325 mg tablet 0.5 - 1 tab PO BID PRN (Reason: pain) Qty: 60 0RF sennosides-docusate sodium [Senokot-S] 8.6-50 mg Tablet 1 tab PO BID Qty: 60 0RF polyethylene glycol 3350 [Miralax] 17 gram powder in packet 17 g PO DAILY PRN (Reason: Constipation) clobetasol 0.05 % Ointment 1 applic EXT DAILY Qty: 15 0RF gentamicin 0.1 % Cream 1 applic EXT DAILY Qty: 15 0RF isosorbide mononitrate 60 mg Tablet Extended Release 24 Hr 60 mg PO QAM paroxetine HCl 40 mg tablet 20 mg PO HS epoetin kole 40,000 unit/mL solution 40,000 unit subcut UD Rx Instructions: Hold for Hgb >[address] PRO EVERY 2 WEEKS cyanocobalamin (vitamin B-12) 1,000 mcg capsule 1,000 mcg PO QAM melatonin 10 mg Tablet 10 mg PO HS No Action (DME) Lift Chair Misc See Rx Instructions .Route Qty: 1 0RF Rx Instructions: Mechanical Lift Chair (DME) Oxygen Home E0424 Liters Per Minute See Rx Instructions .MEDSUPPLY Qty: 1 0RF Rx Instructions: Home Oxygen concentrator with portability, test for conserving device. 0 via n/c at rest and 4LPM via n/c with exertion and sleep; KYLAH 99. (DME) Over Night Pulse OX Misc See Rx Instructions .MEDSUPPLY Qty: 1 0RF Rx Instructions: As directed Discharge Orders: Discharge Order (Routine); Ordered 11/03/23 Ordered By: Ellie Regalado Admission Data Admit Date/Time: 10/31/23 19:38 Attending Provider: Ellie Regalado Admit Provider: Jazmín Gamboa Primary Care Provider: Soledad Meier Other Providers: Alberto Blake; Robert Rivas Nilesh A; Natalie Santos; [facility] Other Interventions: Discharge Summary Assessment (RN) Last Done: 11/03/23 12:02 Coding Level of Care Code 86113 INP/OBS DISCH >30 MIN Diagnoses Anemia due to other cause, not classified D64.89 Anemia type: other cause Other causes of anemia: other cause, not classified Hyponatremia E87.1 Pleural effusion J90 Heart failure with preserved ejection fraction I50.30 Paroxysmal atrial fibrillation I48.0 COPD (chronic obstructive pulmonary disease) J44.9 Chronic kidney disease, stage V N18.5 Wound of right lower extremity S81.801A Hypothyroidism (acquired) E03.9
--- NOTE | 2023-11-03 22:32 | Electrocardiogram Report ---
Test Reason : Blood Pressure : / mmHG Vent. Rate : 063 BPM Atrial Rate : 063 BPM P-R Int : 206 ms QRS Dur : 082 ms QT Int : 476 ms P-R-T Axes : 040 051 019 degrees QTc Int : 487 ms Normal sinus rhythm Nonspecific ST and T wave abnormality Prolonged QT Abnormal ECG When compared with ECG of 21-SEP-2023 16:08, Premature atrial complexes are no longer Present T wave inversion now evident in Anterior leads Confirmed by Danial Connolly ([id number]) on 11/03/2023 10:32:20 PM Referred By: REFERRED SELF Confirmed By:Danial Connolly
== END 2023-11-03 14:02 | disposition home or self-care (01) | DRG 291 ==
LOC: ED 15:50 → EDINP 19:38 → SUATTDRO 19:38 → INTOOBSV 19:38 → 3N 20:04

== ENCOUNTER 2023-12-06 16:36 | Inpatient (IN) ==
--- NOTE | 2023-12-06 16:57 | Emergency Department Note ---
Impression & Plan Anemia ADMIT ED Provider Note HPI: History obtained from patient and patient's daughter at the bedside. The patient is a 83-year-old female with history of acute on chronic diastolic heart failure, chronic anemia, B12 deficiency, COPD, paroxysmal atrial fibrillation currently on anticoagulation, presents the emergency department with a chief complaint of low hemoglobin on outpatient lab work performed earlier today. Patient's daughter is at the bedside and she is assisting with history, she states that the patient otherwise seems to be in her normal state of health and she had some routine blood work done today. They received a call stating that they should come to the ER because her hemoglobin was "around 5". On arrival here to the ED the patient states that she otherwise feels well. Denies any focal complaint of pain. Patient's daughter states she did have some bleeding from a wound on her right lower extremity that is chronic, she states this occurred on Tuesday, she states the bleeding was significant for some period of time however they were able to stop it when they bandaged the wound. Patient's Eliquis was held by her daughter for 3 days because of the bleeding wound, and she just restarted taking it again today. On arrival here to the ED the patient is saturating well on room air and she is otherwise hemodynamically stable ROS: - Per HPI Differential Diagnosis: Acute on chronic anemia secondary to chronic disease, acute blood loss anemia, chronic kidney disease with anemia, B12 deficiency, folate deficiency, amongst other potential pathologies. *Outpatient medications and allergy history reviewed. PE: General: Alert, frail-appearing, no acute distress HEENT: Normocephalic, trachea midline Eyes: Extraocular eye movement is intact, no scleral erythema Pulmonary: Clear to auscultation bilaterally, no wheezing Cardio: Regular rate and rhythm GI: Abdomen is soft to palpation : No suprapubic tenderness MSK: No evidence of trauma or malformation of the extremities, no edema Skin: No evidence of rash, chronic wound to the right lower extremity with overlying bandage (patient declines examination of the wound) Neuro: Alert, no focal deficits Psychiatric: Cooperative INDEPENDENT INTERPRETATIONS: color television console monitor: (As interpreted by myself): - An order was placed for continuous cardiac monitoring - Patient was noted to be in sinus rhythm with a rate of 70 EKG: (As interpreted by myself): Rate: 68 Rhythm: Normal sinus rhythm Intervals: Within normal limits ST changes: No ST elevation Time: 1655 Chest x-ray: (As interpreted by myself): Bibasilar opacities with pulmonary edema Interventions provided in ED: -Packed red blood cell transfusion Medical Decision Making: IV was established and lab work obtained, patient was placed on color television console monitor. Patient is saturating well on room air on arrival and is otherwise hemodynamically stable. Lab work shows no leukocytosis, hemoglobin is low at 6.1, platelet count is normal, CMP shows chronic kidney disease with baseline creatinine of 2.80, BUN is 62. High-sensitivity troponin is mildly elevated at 41.7, EKG does not show any acute ischemic changes per my interpretation. Patient denies any chest pain. Low suspicion for ACS. Patient does mention that she had some bleeding from a chronic wound to her right lower extremity. On exam this is bandaged as she was at wound care today and she declines my exam as she states she does not want the bandage to be removed. Given the patient's chronic anemia with recent acute blood loss from the wound over the weekend this could be a multifactorial anemia. Given that the patient's blood count today is 6.1 she was consented for packed red blood cell transfusion. She is in agreement for admission. Patient and her family member at the bedside are in agreement to the above plan, case was discussed with the on-call hospitalist, Dr. Singleton, the patient was placed for admission in stable condition. Consultants/Discussions held with other healthcare providers: -Hospitalist, Dr. Singleton Disposition discussion held by myself with: -Patient and family member at bedside * CRITICAL CARE TIME: ( 34 ) minutes -Transfusion of blood products for critically low hemoglobin of 6.1, time spent at the bedside, interpretation of diagnostic studies, discussion with other healthcare providers and arrangement of admission Diagnosis: 1. Acute on chronic anemia 2. Chronic kidney disease 3. Elevated high-sensitivity troponin level, acute Disposition: Admission Сергей Nunes DO Emergency Medicine Past Med/Surg History Problem List (Updated 12/06/23 @ 22:09 by Сергей Nunes DO) Anemia (Acute) Acute on chronic anemia Hypothyroidism (acquired) Acute on chronic diastolic CHF (congestive heart failure) recently hospitalized @[facility] on 04/21/23 Anemia (Acute) Hyponatremia (Acute) Pleural effusion (Acute) Weakness (Acute) Hyponatremia Anemia B12 deficiency Folate deficiency Impacted cerumen of left ear COPD (chronic obstructive pulmonary disease) Hearing loss (Acute) Cholesteatoma of ear (Acute) Transaminitis (Acute) Influenza A (Acute) Bilateral pleural effusion Chronic kidney disease, stage V no dialysis; f/u dr. tinsley Changing skin lesion Pleural effusion (Acute) Pressure ulcer of right leg, unstageable (Acute) Pressure ulcer of lower extremity, stage 3 Skin lesion of face (Acute) Hypoxia (Acute) Wound of right lower extremity Tracheomalacia Hypoxia Restrictive airway disease Encounter for pre-operative examination Multiple pulmonary nodules Chronic cough Hx of pulmonary embolus Vaginal atrophy (Acute) Urinary incontinence (Acute) Prolapse of vaginal wall with midline cystocele (Acute) Internal hemorrhoids (Acute) Hyperplastic colon polyp (Acute) Diverticulosis (Acute) Acute cystitis (Acute) Asthma-COPD overlap syndrome detention (current) use of anticoagulants (Chronic) Hypertension Acute hearing loss of right ear SVT (supraventricular tachycardia) Chronic mastoiditis of left side Tinnitus of right ear Awareness of heart beat Anemia in CKD (chronic kidney disease) Acute on chronic renal failure Heart failure with preserved ejection fraction (Acute) Encounter for monitoring anti-arrhythmic therapy Hypokalemia UTI (urinary tract infection) Cutaneous candidiasis Sleep disturbance Respiratory failure with hypoxia (Acute) Admitted to intensive care unit RLL pneumonia (Acute) Paroxysmal atrial fibrillation Mitral regurgitation Pleural effusion Chronic anticoagulation Hypercholesteremia Mixed conductive and sensorineural hearing loss of left ear with restricted hearing of right ear hearing aid lt ear Sensorineural hearing loss (SNHL) of right ear with restricted hearing of left ear 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 Medical History Hemorrhage from the ear Rheumatoid arthritis Slow to wake up after anesthesia happened once time Hx of vertigo "none for quite some time, occurred when taking sulfa for her bladder problems" Acute respiratory failure with hypoxia hx-hospitalized 04/21/23 @[facility] Restrictive lung disease daily inh, inh and neb prn Atrial fibrillation with rapid ventricular response currently on eliquis; f/u dr. 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 H/O deep venous thrombosis 2018 Bilateral pulmonary embolism 2019, from DVT Surgical History H/O surgical biopsy 08/18/2023 non-healing lesion left cheek History of esophagogastroduodenoscopy (EGD) Hx of colonoscopy Hx of vein stripping Hx of hysterectomy Family History Mother Blood clot in vein Father Myocardial infarction Sister Blood clot in vein Breast cancer Aunt Blood clot in vein Son Prostate cancer Denies family history of Ovarian cancer Colorectal cancer Social History Smoking Status: Never smoker Second Hand Exposure: No; Do You Dip or Chew Tobacco: No; Hx Alcohol Use: No Hx Substance Use: No Preferred Language: Telugu Communication Ability: Effective Communication Ability Comment: Patient is hard of hearing at this time and requires a white board. 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 How many Children do You have: 3 How many Children do You have Comment: Sons work close and assist pt with meals Other Information That Helps Us Care for You: No Feels Safe at Home: Yes Safety Concerns: Feels Safe At This Time Childhood Exposure to Second-Hand Smoke: Yes Diet: low salt caffeine: No Dental Care, Regularly: Yes Physical Activity Frequency: Does not Exercise Seatbelt Use: always Sunscreen Use: Yes Assistive Devices: Walker Allergies Allergies Allergy/AdvReac Type Severity Reaction Status Date / Time adhesive AdvReac Intermediate skin tears Verified 11/23/23 13:42 Sulfa (Sulfonamide AdvReac Intermediate HEADACHE, Verified 11/23/23 13:42 Antibiotics) VERTIGO Home Meds Home Medications Medication Instructions Recorded Confirmed polyethylene glycol 3350 17 gram 17 g PO DAILY PRN Constipation 04/21/23 12/06/23 oral powder packet (Miralax) cyanocobalamin (vitamin B-12) 1,000 mcg PO QAM 08/30/23 12/06/23 1,000 mcg capsule melatonin 10 mg tablet 10 mg PO HS 08/30/23 12/06/23 epoetin kole 40,000 unit/mL 40,000 unit subcut UD 10/31/23 12/06/23 injection solution isosorbide mononitrate 60 mg 60 mg PO QAM 10/31/23 12/06/23 tablet,extended release 24 hr Previous Rx's Medication Instructions Recorded sennosides 8.6 mg-docusate sodium 1 tab PO BID #60 tabs 08/19/22 50 mg tablet (Senokot-S) ipratropium 0.5 mg-albuterol 3 mg 3 ml inhalation Q2H PRN shortness 11/24/22 (2.5 mg base)/3 mL nebulization of breath or wheezing #180 mL soln calcitriol 0.5 mcg capsule 0.5 mcg PO 3XWK #45 caps 12/02/22 apixaban 2.5 mg tablet (Eliquis) 2.5 mg PO BID #180 tabs 01/31/23 Over Night Pulse OX #1 ea 05/23/23 Oxygen Home E0424 #1 ea 05/23/23 Lift Chair #1 ea 08/31/23 metoprolol tartrate 25 mg tablet 12.5 mg (1/2 x 25 mg) PO BID #90 09/08/23 tabs clobetasol 0.05 % topical ointment 1 applic EXT DAILY #15 grams 09/22/23 furosemide 20 mg tablet 20 mg PO BID #180 tabs 10/24/23 albuterol sulfate 90 mcg/actuation 2 puff inhalation Q6H PRN 11/07/23 aerosol inhaler Shortness Of Breath Or Wheezing #18 grams oxycodone-acetaminophen 5 mg-325 0.5 - 1 tab PO BID PRN pain #60 11/21/23 mg tablet tabs paroxetine HCl 10 mg tablet 10 mg PO HS #30 tabs 11/22/23 Results & Data (ED) Vital Signs Vital Signs - 24 hr 12/06/23 16:40 12/06/23 17:02 12/06/23 17:08 Temperature 36.6 C Temperature Source Oral Pulse Rate 63 65 65 Pulse Rate from SpO2 Sensor 65 Respiratory Rate 12 13 Respiratory Depth Normal Blood Pressure 133/63 Blood Pressure Mean 86 Pulse Oximetry 96 97 Oxygen Delivery Method Room Air Sepsis Recent Fever Within 48 Hours No Sepsis New/Unexplained Change in Mental Status N/A Sepsis Action Taken by Nursing No Action Required 12/06/23 17:08 12/06/23 17:30 12/06/23 17:30 Temperature Temperature Source Pulse Rate 63 Pulse Rate from SpO2 Sensor 63 Respiratory Rate 18 Respiratory Depth Blood Pressure 118/58 L Blood Pressure Mean 97 Pulse Oximetry 98 93 Oxygen Delivery Method Room Air Sepsis Recent Fever Within 48 Hours Sepsis New/Unexplained Change in Mental Status Sepsis Action Taken by Nursing 12/06/23 18:00 12/06/23 18:00 12/06/23 18:30 Temperature Temperature Source Pulse Rate 63 Pulse Rate from SpO2 Sensor 63 Respiratory Rate 16 Respiratory Depth Blood Pressure 124/57 L 125/62 Blood Pressure Mean 97 82 Pulse Oximetry 95 Oxygen Delivery Method Sepsis Recent Fever Within 48 Hours Sepsis New/Unexplained Change in Mental Status Sepsis Action Taken by Nursing 12/06/23 18:30 12/06/23 18:42 12/06/23 18:42 Temperature 36.7 C Temperature Source Oral Pulse Rate 63 63 Pulse Rate from SpO2 Sensor 63 Respiratory Rate 14 16 Respiratory Depth Blood Pressure 134/50 L 134/50 L Blood Pressure Mean 78 87 Pulse Oximetry 94 96 Oxygen Delivery Method Sepsis Recent Fever Within 48 Hours Sepsis New/Unexplained Change in Mental Status Sepsis Action Taken by Nursing 12/06/23 18:42 12/06/23 18:45 12/06/23 18:45 Temperature Temperature Source Pulse Rate 63 63 Pulse Rate from SpO2 Sensor 63 64 Respiratory Rate 21 23 Respiratory Depth Blood Pressure 122/62 Blood Pressure Mean 101 Pulse Oximetry 96 96 Oxygen Delivery Method Sepsis Recent Fever Within 48 Hours Sepsis New/Unexplained Change in Mental Status Sepsis Action Taken by Nursing Laboratory Data 12/06/23 Unknown 12/06/23 Unknown Lab Results 12/06/23 Range/Units 17:04 Blood Type A Positive Antibody Screen NEGATIVE Crossmatch See Detail Administered Medications Discontinued Medications Sodium Chloride (Nss) 500 mls @ 999 mls/hr IV .Q31M STA Stop: 12/06/23 17:16 Last Admin: 12/06/23 17:20 Dose: 999 mls/hr Documented By: DS Imaging Data Radiologist's Impression: Chest X-Ray 12/06/23 16:46 XR chest 1V portable CLINICAL HISTORY: Chest pain, nonspecific COMPARISON STUDY: Chest CT August 29, 2023. Chest radiograph October 31, 2023. FINDINGS: The right pleural catheter has been removed. Small to moderate right pleural effusion is unchanged. There is a small left pleural effusion, slightly increased. Bibasilar opacities have slightly increased. Pulmonary edema has slightly improved when compared to prior exam. Cardiomegaly is unchanged. IMPRESSION: 1. Small to moderate right and small left pleural effusions. Associated bibasilar opacities could reflect atelectasis or pneumonia. 2. Mild interstitial pulmonary edema, improved since prior exam. ACT 112: Negative or not required by law. Electronically signed by: Rudy Barrow M.D. 12/06/2023 5:15 PM Discharge Plan Visit Data Chief Complaint: Abnormal Labs/Diagnostic Testing Stated Complaint: HEMOGLOBIN LEVEL/5, ABN LABS, DOC REF ED Provider: Сергей Nunes Discharge Problem: Anemia Patient Disposition: Admitted As Inpatient Discharge Instructions Interventions: ED Discharge Assessment Last Done: 12/06/23 20:08 Discharge Problem: Anemia Qualifiers: Anemia type: unspecified type Qualified Code(s): D64.9 - Anemia, unspecified
--- NOTE | 2023-12-06 17:17 | XRay Report ---
XR chest 1V portable CLINICAL HISTORY: Chest pain, nonspecific COMPARISON STUDY: Chest CT August 29, 2023. Chest radiograph October 31, 2023. FINDINGS: The right pleural catheter has been removed. Small to moderate right pleural effusion is un changed. There is a small left pleural effusion, slightly increased. Bibasilar opacities have slightl y increased. Pulmonary edema has slightly improved when compared to prior exam. Cardiomegaly is uncha nged. IMPRESSION: 1. Small to moderate right and small left pleural effusions. Associated bibasilar opacities could ref lect atelectasis or pneumonia. 2. Mild interstitial pulmonary edema, improved since prior exam. ACT 112: Negative or not required by law. Electronically signed by: Rudy Barrow M.D. 12/06/2023 5:15 PM
[2023-12-06] MEDS: SODIUM CHLORIDE 0.9% 500 ML IV STA (17:20)
[2023-12-06 17:21] LABS: Hematocrit (blood only) 20.6 % (37.0-47.0); Hemoglobin 6.1 g/dl (12.0-16.0); Mean Corpuscular Hemoglobin 27.6 pg (25.0-34.0); Mean Corpuscular Hgb Conc 29.6 g/dL (32.0-36.0); Mean Corpuscular Volume 93.2 fL (80.0-100.0); Mean Platelet Volume 9.4 fL (9.4-12.4); Platelet Count 324 K/uL (130-400); RDW Standard Deviation 76.5 fL (36.4-46.3); Red Blood Count 2.21 M/uL (4.20-5.40); White Blood Count 10.73 K/ul (4.8-10.8)
[2023-12-06] MEDS ORDERED: SODIUM CHLORIDE 0.9% 250 ML IV PRN (17:22)
[2023-12-06 17:32] LABS: Alanine Aminotransferase 13 U/L (7-52); Albumin Globulin Ratio 0.8 (0.9-2); Alkaline Phosphatase 97 U/L (34-104); Anion Gap 14 (3-11); Aspartate Aminotransferase 15 U/L (13-39); BUN Creatinine Ratio 22.1 (10-20); Bilirubin,Total 0.5 mg/dl (0.2-1.0); Blood Urea Nitrogen 62 mg/dl (6-23); Calcium 8.5 mg/dl (8.6-10.3); Carbon Dioxide 21 mmol/L (21-32); Chloride 102 mmol/L (98-107); Est GFR (African American) 17.6 ml/min; Est GFR (Non-African American) 15.2 ml/min; Globulin 3.9 gm/dl (2.5-4.0); Glucose 154 mg/dl (70-99(Fasting)); Lipase 40 U/L (11-82); Potassium 3.6 mmol/L (3.5-5.1); Sodium 137 mmol/L (136-145); Total Protein 6.9 gm/dl (6.0-8.3)
[2023-12-06 17:37] LABS: Troponin I High Sensitivity 41.7 pg/ml (0-14)
[2023-12-06 17:41] LABS: Anisocytosis Present; Basophils # (auto) 0.05 K/uL (0.00-0.20); Basophils % (auto) 0.5 %; Eosinophils # (auto) 0.45 K/uL (0.00-0.50); Eosinophils % (auto) 4.2 %; Immature Granulocytes # (auto) 0.11 K/uL (0.01-0.20); Lymphocytes # (auto) 1.67 K/uL (1.20-3.40); Lymphocytes % (auto) 15.6 %; Monocytes # (auto) 0.58 K/uL (0.11-0.59); Monocytes % (auto) 5.4 %; Neutrophils # (auto) 7.87 K/uL (1.40-6.50); Neutrophils % (auto) 73.3 %; Ovalocytes 1+; Polychromasia 1+
[2023-12-06 17:51] LABS: Prothrombin Time 10.9 Seconds (9.0-12.0)
--- NOTE | 2023-12-06 18:51 | History & Physical Report ---
Date of Service December 06, 2023 Assessment & Plan (1) Acute on chronic anemia: Plan: Acute on chronic anemia - Outpt hgb in 5s, 6.1 on ER check. 2 u pRBC ordered with post H&H check. Due to progressive anemia recommend 2u for transfusion rather than 1-1 with a H&h inbetween. Patient presents with some fatigue and weakness but is relatively asymptomatic despite hemoglobin 5 - Suspect multifactorial with AoCD plus bleeding from RLE wound. No clinical bleeding Was recently discharged 11/03/2023 after admission for anemia of chronic disease Had some bloody output in Pleurx catheter otherwise no source of bleeding was identified on her prior workup No GI bleeding Hemoglobin 6.1, last 8.5 on 11/03/2023 Admitted and receiving 2 units of transfusion. Patient is not microcytic Did complete a course of Venofer at last hospitalization Continue EPO, nephrology consulted EKG: Normal sinus rhythm without acute ischemic change (2) Acute on chronic diastolic CHF (congestive heart failure): Plan: .Patient reports good increasing bilateral lower extremity edema, and some increase shortness of breath She has JVD, bilateral lower extremity pitting edema, and pulmonary edema on admission although is satting normally on room air She has increased her Lasix p.o. to 80 mg at home but still does not have good output Switch to Lasix 40 mg IV p.o. twice daily.? Impaired absorption with edema Low-salt diet, strict ins and outs (3) Wound of right lower extremity: Plan: Wound which was seen by wound care today. Patient discharged. Patient declines to have this addressed as she notes it was just redressed, prefer to help with that tomorrow, and does not want it is completed. (4) Chronic kidney disease, stage V: Plan: CKD Baseline creatinine approximately 2.763.3 Creatinine 2.8 on admission Trend daily Renally dose medications as needed (5) Hx of pulmonary embolus: Plan: History of pulmonary embolism History of PE 2019, right lower extremity thrombus 2019 Eliquis held for severe anemia (6) Asthma-COPD overlap syndrome: Plan: Asthma/COPD overlap Continue Symbicort Hypertension Continue metoprolol, Imdur, Lasix 20 twice daily (7) Paroxysmal atrial fibrillation: Plan: A-fib, severe MR Continue metoprolol Apixaban held in the setting of severe anemia Previously on amiodarone for A-fib however this was held due to concerns for hepatotoxicity (8) Pleural effusion: Plan: Chronic pleural effusions Patient has had a right Pleurx catheter, this was removed 11/14/2023. This has not been output in some time and patient was a high risk TNKase/, opted to remove this instead - CXR: 1. Small to moderate right and small left pleural effusions. Associated bibasilar opacities could reflect atelectasis or pneumonia. 2. Mild interstitial pulmonary edema, improved since prior exam. No fever, chills, sweats or cough suggestive of pneumonia. Will continue diuretics, antibiotics not currently indicated. Will follow fever curve and daily CBC History of Present Illness Primary Care Provider: Soledad Meier MD Martha is an 83-year-old female with a history of chronic diastolic heart failure, B12 deficiency, COPD, paroxysmal A-fib on anticoagulation who presented to the ER after outpatient lab work showed significant anemia. Patient was asymptomatic but denied lightheadedness, dizziness, shortness of breath. History of AoCD, b12 deficiency. Some fatigue otherwise felt OK today. Outpatient labs hgb 5 --> referred to ER RLE chronic wound that she declined assessment of --> was bleeding on Tuesday. Hemostasis was achieved at home after wrapping and ER was held x3 days and resumed today Is present. Seen at the bedside. She reports getting Pleurx out and since that she thought she has been doing fairly well. She did have some bleeding from her right lower extremity wound over the last 3 days and finally this stopped yesterday and was freshly wrapped by wound care today. No warmth, erythema, tenderness. No fever chills or sweats. She has had worsened swelling in her lower extremities bilaterally and has increased her Lasix to 80 mg, but this has not helped with the swelling. Reports that she fatigues easily and has a little shortness of breath, but no shortness of breath at bedside now and has had no chest pain Medical History: Reviewed Medications: Reviewed Surgical History: Reviewed Family history: Reviewed Allergies: Reviewed Social History: Reviewed Code Status: Full Allergies Allergy/AdvReac Type Severity Reaction Status Date / Time adhesive AdvReac Intermediate skin tears Verified 11/23/23 13:42 Sulfa (Sulfonamide AdvReac Intermediate HEADACHE, Verified 11/23/23 13:42 Antibiotics) VERTIGO Home Medications Medication Instructions Recorded Confirmed Type sennosides 8.6 mg-docusate sodium 1 tab PO BID #60 tabs 08/19/22 12/06/23 Rx 50 mg tablet (Senokot-S) ipratropium 0.5 mg-albuterol 3 mg 3 ml inhalation Q2H PRN shortness 11/24/22 12/06/23 Rx (2.5 mg base)/3 mL nebulization of breath or wheezing #180 mL soln calcitriol 0.5 mcg capsule 0.5 mcg PO 3XWK #45 caps 12/02/22 12/06/23 Rx apixaban 2.5 mg tablet (Eliquis) 2.5 mg PO BID #180 tabs 01/31/23 12/06/23 Rx polyethylene glycol 3350 17 gram 17 g PO DAILY PRN Constipation 04/21/23 12/06/23 History oral powder packet (Miralax) Over Night Pulse OX #1 ea 05/23/23 12/06/23 Rx Oxygen Home E0424 #1 ea 05/23/23 12/06/23 Rx cyanocobalamin (vitamin B-12) 1,000 mcg PO QAM 08/30/23 12/06/23 History 1,000 mcg capsule melatonin 10 mg tablet 10 mg PO HS 08/30/23 12/06/23 History Lift Chair #1 ea 08/31/23 12/06/23 Rx metoprolol tartrate 25 mg tablet 12.5 mg (1/2 x 25 mg) PO BID #90 09/08/23 12/06/23 Rx tabs clobetasol 0.05 % topical ointment 1 applic EXT DAILY #15 grams 09/22/23 12/06/23 Rx furosemide 20 mg tablet 20 mg PO BID #180 tabs 10/24/23 12/06/23 Rx epoetin kole 40,000 unit/mL 40,000 unit subcut UD 10/31/23 12/06/23 History injection solution isosorbide mononitrate 60 mg 60 mg PO QAM 10/31/23 12/06/23 History tablet,extended release 24 hr albuterol sulfate 90 mcg/actuation 2 puff inhalation Q6H PRN 11/07/23 12/06/23 Rx aerosol inhaler Shortness Of Breath Or Wheezing #18 grams oxycodone-acetaminophen 5 mg-325 0.5 - 1 tab PO BID PRN pain #60 11/21/23 12/06/23 Rx mg tablet tabs paroxetine HCl 10 mg tablet 10 mg PO HS #30 tabs 11/22/23 12/06/23 Rx Past Med/Surg History Problem List Acute on chronic anemia Hypothyroidism (acquired) Acute on chronic diastolic CHF (congestive heart failure) recently hospitalized @[facility] on 04/21/23 Anemia (Acute) Hyponatremia (Acute) Pleural effusion (Acute) Weakness (Acute) Hyponatremia Anemia B12 deficiency Folate deficiency Impacted cerumen of left ear COPD (chronic obstructive pulmonary disease) Hearing loss (Acute) Cholesteatoma of ear (Acute) Transaminitis (Acute) Influenza A (Acute) Bilateral pleural effusion Chronic kidney disease, stage V no dialysis; f/u dr. tinsley Changing skin lesion Pleural effusion (Acute) Pressure ulcer of right leg, unstageable (Acute) Pressure ulcer of lower extremity, stage 3 Skin lesion of face (Acute) Hypoxia (Acute) Wound of right lower extremity Tracheomalacia Hypoxia Restrictive airway disease Encounter for pre-operative examination Multiple pulmonary nodules Chronic cough Hx of pulmonary embolus Vaginal atrophy (Acute) Urinary incontinence (Acute) Prolapse of vaginal wall with midline cystocele (Acute) Internal hemorrhoids (Acute) Hyperplastic colon polyp (Acute) Diverticulosis (Acute) Acute cystitis (Acute) Asthma-COPD overlap syndrome assisted (current) use of anticoagulants (Chronic) Hypertension Acute hearing loss of right ear SVT (supraventricular tachycardia) Chronic mastoiditis of left side Tinnitus of right ear Awareness of heart beat Anemia in CKD (chronic kidney disease) Acute on chronic renal failure Heart failure with preserved ejection fraction (Acute) Encounter for monitoring anti-arrhythmic therapy Hypokalemia UTI (urinary tract infection) Cutaneous candidiasis Sleep disturbance Respiratory failure with hypoxia (Acute) Admitted to intensive care unit RLL pneumonia (Acute) Paroxysmal atrial fibrillation Mitral regurgitation Pleural effusion Chronic anticoagulation Hypercholesteremia Mixed conductive and sensorineural hearing loss of left ear with restricted hearing of right ear hearing aid lt ear Sensorineural hearing loss (SNHL) of right ear with restricted hearing of left ear 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 Medical History Hemorrhage from the ear Rheumatoid arthritis Slow to wake up after anesthesia happened once time Hx of vertigo "none for quite some time, occurred when taking sulfa for her bladder problems" Acute respiratory failure with hypoxia hx-hospitalized 04/21/23 @[facility] Restrictive lung disease daily inh, inh and neb prn Atrial fibrillation with rapid ventricular response currently on eliquis; f/u dr. 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 H/O deep venous thrombosis 2019 Bilateral pulmonary embolism 2019, from DVT Surgical History H/O surgical biopsy 08/18/2023 non-healing lesion left cheek History of esophagogastroduodenoscopy (EGD) Hx of colonoscopy Hx of vein stripping Hx of hysterectomy Family History Mother Blood clot in vein Father Myocardial infarction Sister Blood clot in vein Breast cancer Aunt Blood clot in vein Son Prostate cancer Denies family history of Ovarian cancer Colorectal cancer Social History Smoking Status: Never smoker Second Hand Exposure: No; Do You Dip or Chew Tobacco: No; Hx Alcohol Use: No Hx Substance Use: No Preferred Language: Lithuanian Communication Ability: Effective Communication Ability Comment: Patient is hard of hearing at this time and requires a white board. 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 NAD. Cooperative. Pale HEENT: Atraumatic, normocephalic. Pulm: Diminished in the bases symmetrical chest rise. No increased work of breathing. No respiratory distress. Cardiac: RRR, -mrg. Radial pulses intact and symmetrical. Abdominal: Nontender, nondistended, soft. BS present.. Extremities: Right lower extremity with fresh dressing in place C/C/I, no surrounding erythema/warmth/tenderness. Bilateral pitting edema Results & Data Results & Data Vital Signs (Past 12 Hours) Vital Signs Temp Pulse Resp BP Pulse Ox O2 Del Method 12/06/23 18:42 36.7 C 63 16 134/50 L 96 12/06/23 18:00 63 16 95 12/06/23 18:00 124/57 L 12/06/23 17:30 118/58 L 12/06/23 17:30 63 18 93 12/06/23 17:08 98 Room Air 12/06/23 17:08 65 12/06/23 17:02 65 13 97 12/06/23 16:40 36.6 C 63 12 133/63 96 Room Air PG Care Time/CCT Total # of Minutes Spent Total Time Spent with Patient: Total time spent is greater than 50% in coordination of care (as documented) at patient's floor/unit and/or counseling patient: Coding Level of Care Code 17925 INT INP/OBS CARE 3/75MIN Diagnoses Acute on chronic anemia D64.9 Acute on chronic diastolic CHF (congestive heart failure) I50.33 Wound of right lower extremity S81.801A Chronic kidney disease, stage V N18.5 Hx of pulmonary embolus Z86.711 Asthma-COPD overlap syndrome J44.9 Paroxysmal atrial fibrillation I48.0 Pleural effusion J90
[2023-12-06] MEDS ORDERED: POLYETHYLENE (MIRALAX) 17 GM PACK PO PRN (20:08)
[2023-12-06] MEDS ORDERED: ALBUTEROL HFA 8 GM INHALER INH PRN (20:08)
[2023-12-06] MEDS ORDERED: ALBUT/IPRATROP 3MG/0.5MG NEB 3 ML VIAL INH PRN (20:08)
[2023-12-07] MEDS: DOCUSATE SODIUM/SENNA 50/8.6MG TAB PO SCH (00:41)
[2023-12-07] MEDS: METOPROLOL TARTRATE 25 MG TAB PO SCH (00:42)
[2023-12-07] MEDS: MELATONIN 3 MG TAB PO SCH (00:42)
[2023-12-07] MEDS: POTASSIUM CHLORIDE CRTAB 20 MEQ TABCR PO SCH (00:43)
[2023-12-07] MEDS: PARoxetine HCL 10 MG TAB PO SCH (00:43)
[2023-12-07 07:09] LABS: Calcium 8.2 mg/dl (8.6-10.3); Creatinine Clr Calc Pharmacy 14.3 ml/min; Est GFR (African American) 19.2 ml/min; Est GFR (Non-African American) 16.6 ml/min; Potassium 3.6 mmol/L (3.5-5.1)
[2023-12-07 07:13] LABS: Basophils # (auto) 0.07 K/uL (0.00-0.20); Basophils % (auto) 0.8 %; Eosinophils # (auto) 0.36 K/uL (0.00-0.50); Eosinophils % (auto) 4.3 %; Hematocrit (blood only) 24.8 % (37.0-47.0); Hemoglobin 8.1 g/dl (12.0-16.0); Immature Granulocytes # (auto) 0.06 K/uL (0.01-0.20); Immature Granulocytes % (auto) 0.7 %; Lymphocytes # (auto) 1.19 K/uL (1.20-3.40); Lymphocytes % (auto) 14.2 %; Mean Corpuscular Hemoglobin 29.7 pg (25.0-34.0); Mean Corpuscular Hgb Conc 32.7 g/dL (32.0-36.0); Mean Corpuscular Volume 90.8 fL (80.0-100.0); Mean Platelet Volume 9.3 fL (9.4-12.4); Monocytes # (auto) 0.51 K/uL (0.11-0.59); Monocytes % (auto) 6.1 %; Neutrophils # (auto) 6.21 K/uL (1.40-6.50); Neutrophils % (auto) 73.9 %; Platelet Count 237 K/uL (130-400); RDW Coefficient of Variation 18.7 % (11.5-14.5); RDW Standard Deviation 61.4 fL (36.4-46.3); Red Blood Count 2.73 M/uL (4.20-5.40)
[2023-12-07] MEDS: ISOSORBIDE MONO EXTENDED REL 60 MG TABCR PO SCH (09:06)
[2023-12-07] MEDS: CYANOCOBALAMIN (B-12) 500 MCG TABLET PO SCH (09:07)
[2023-12-07] MEDS: FUROSEMIDE 40 MG/4 ML VIAL IV SCH (09:07)
[2023-12-07] MEDS: CLOBETASOL PROPIONATE 0.05% OINT 15 GM TUBE EXT SCH (09:12)
[2023-12-07] MEDS: oxyCODONE/ACETAMINOPHEN 5mg/325mg TAB PO PRN (09:37)
[2023-12-07 10:43] LABS: Ferritin 969.7 ng/ml (8-388)
--- NOTE | 2023-12-07 11:50 | Electrocardiogram Report ---
Test Reason : Blood Pressure : / mmHG Vent. Rate : 068 BPM Atrial Rate : 068 BPM P-R Int : 174 ms QRS Dur : 088 ms QT Int : 454 ms P-R-T Axes : 059 010 036 degrees QTc Int : 482 ms Normal sinus rhythm Nonspecific T wave abnormality Abnormal ECG When compared with ECG of 31-OCT-2023 17:24, T wave inversion no longer evident in Anterior leads Confirmed by Mitul Barry ([id number]) on 12/07/2023 11:50:15 AM Referred By: Ksenia Rivas Confirmed By:Aram Barry
--- NOTE | 2023-12-07 12:15 | Nephrology Consultation ---
Date of Consultation December 07, 2023 Assessment & Plan (1) Anemia: * Iron saturation obtained this hospitalization was after blood transfusion * 10/31/23 iron saturation was 8% with ferritin 445 * Patient has recurrent iron deficiency anemia. Need to r/o GIB * Agree w/ blood transfusion to maintain Hgb > 8.0. Will order FOBT, B12,folate, LDH, haptoglobin * Will administer Epogen 10,000 units SQ x1 * Monitor H&H (2) Chronic kidney disease, stage V: * CKD stage G5 (End Stage Kidney Disease) w/ baseline Cr 3.8, EGFR 10 cc/min. CKD is of unclear etiology (presented late and never had biopsy with h/o thromboembolic disease and high risk to stop anticoagulant) * Kidney function is stable. Volume status and electrolyte balance are acceptable * Monitor PRP * Poor dialysis candidate due to advanced age, frailty History of Present Illness Reason for Consultation: Anemia Attending Physician: Rodriguez De La Garza History of Present Illness Ms. Raygoza is an 83 year old white female who is seen at the request of [facility] hospitalist service for evaluation of anemia. Information for the HPI is obtained from direct patient interview and review of the EMR. HPI is summarized as follows: Ms. Raygoza has CKD stage G5 (End Stage Kidney Disease) w/ baseline Cr 3.8, EGFR 10 cc/min. Her primary Railroad Track Mechanic is Dr. Rivas. Her CKD is of unclear etiology (presented late and never had biopsy with h/o thromboembolic disease and high risk to stop anticoagulant). Her medical history is significant for chronic diastolic heart failure, B12 deficiency, COPD and chronic atrial fibrillation requiring apixaban therapy. Ms. Raygoza receives SQ Procrit every [address] Rivas and IV iron on a PRN basis. Recently Ms. Raygoza has been experiencing LE swelling and developed a blister on her R montgomery. She reports that this opened up and she lost a significant amount of blood? Ms. Raygoza was seen by her PCP and laboratory studies revealed Hgb 5.0. She was subsequently admitted to [facility] and transfused 2 units PRBC. At this time Ms. Raygoza denies uremic symptoms, hemoptysis, hematemesis, melena or hematochezia. Allergies Allergy/AdvReac Type Severity Reaction Status Date / Time adhesive AdvReac Intermediate skin tears Verified 11/23/23 13:42 Sulfa (Sulfonamide AdvReac Intermediate HEADACHE, Verified 11/23/23 13:42 Antibiotics) VERTIGO Home Medications Medication Instructions Recorded Confirmed Type sennosides 8.6 mg-docusate sodium 1 tab PO BID #60 tabs 08/19/22 12/06/23 Rx 50 mg tablet (Senokot-S) ipratropium 0.5 mg-albuterol 3 mg 3 ml inhalation Q2H PRN shortness 11/24/22 12/06/23 Rx (2.5 mg base)/3 mL nebulization of breath or wheezing #180 mL soln calcitriol 0.5 mcg capsule 0.5 mcg PO 3XWK #45 caps 12/02/22 12/06/23 Rx apixaban 2.5 mg tablet (Eliquis) 2.5 mg PO BID #180 tabs 01/31/23 12/06/23 Rx polyethylene glycol 3350 17 gram 17 g PO DAILY PRN Constipation 04/21/23 12/06/23 History oral powder packet (Miralax) Over Night Pulse OX #1 ea 05/23/23 12/06/23 Rx Oxygen Home E0424 #1 ea 05/23/23 12/06/23 Rx cyanocobalamin (vitamin B-12) 1,000 mcg PO QAM 08/30/23 12/06/23 History 1,000 mcg capsule melatonin 10 mg tablet 10 mg PO HS 08/30/23 12/06/23 History Lift Chair #1 ea 08/31/23 12/06/23 Rx metoprolol tartrate 25 mg tablet 12.5 mg (1/2 x 25 mg) PO BID #90 09/08/23 12/06/23 Rx tabs clobetasol 0.05 % topical ointment 1 applic EXT DAILY #15 grams 09/22/23 12/06/23 Rx furosemide 20 mg tablet 20 mg PO BID #180 tabs 10/24/23 12/06/23 Rx epoetin kole 40,000 unit/mL 40,000 unit subcut UD 10/31/23 12/06/23 History injection solution isosorbide mononitrate 60 mg 60 mg PO QAM 10/31/23 12/06/23 History tablet,extended release 24 hr albuterol sulfate 90 mcg/actuation 2 puff inhalation Q6H PRN 11/07/23 12/06/23 Rx aerosol inhaler Shortness Of Breath Or Wheezing #18 grams oxycodone-acetaminophen 5 mg-325 0.5 - 1 tab PO BID PRN pain #60 11/21/23 12/06/23 Rx mg tablet tabs paroxetine HCl 10 mg tablet 10 mg PO HS #30 tabs 11/22/23 12/06/23 Rx Patient History Medical History Hemorrhage from the ear Rheumatoid arthritis Slow to wake up after anesthesia happened once time Hx of vertigo "none for quite some time, occurred when taking sulfa for her bladder problems" Acute respiratory failure with hypoxia hx-hospitalized 04/21/23 @[facility] Restrictive lung disease daily inh, inh and neb prn Atrial fibrillation with rapid ventricular response currently on eliquis; f/u dr. 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 H/O deep venous thrombosis 2018 Bilateral pulmonary embolism 2018, from DVT Surgical History H/O surgical biopsy 08/18/2023 non-healing lesion left cheek History of esophagogastroduodenoscopy (EGD) Hx of colonoscopy Hx of vein stripping Hx of hysterectomy Family History Mother Blood clot in vein Father Myocardial infarction Sister Blood clot in vein Breast cancer Aunt Blood clot in vein Son Prostate cancer Denies family history of Ovarian cancer Colorectal cancer Social History Smoking Status: Never smoker Second Hand Exposure: No; Do You Dip or Chew Tobacco: No; Hx Alcohol Use: No Hx Substance Use: No Preferred Language: Indonesian Communication Ability: Effective Communication Ability Comment: Patient is hard of hearing at this time and requires a white board. 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 How many Children do You have: 3 How many Children do You have Comment: Sons work close and assist pt with meals Other Information That Helps Us Care for You: No Feels Safe at Home: Yes Safety Concerns: Feels Safe At This Time Childhood Exposure to Second-Hand Smoke: Yes Diet: low salt caffeine: No Dental Care, Regularly: Yes Physical Activity Frequency: Does not Exercise Seatbelt Use: always Sunscreen Use: Yes Assistive Devices: Walker Review of Systems Constitutional: no fever Eyes: no problem reported Ear, Nose, Mouth, Throat: no problem reported Respiratory: no cough and no dyspnea Cardiovascular: no chest pain Gastrointestinal: no abdominal pain, no nausea, no vomiting, no diarrhea/loose stools and no blood in stools Integumentary: no rash Neurologic: no problem reported Physical Exam Constitutional: + thin and + frail appearing; not in dis tress ENMT: external ear and nose normal, oropharynx normal Neck: trachea midline, no thyromegaly Respiratory: normal respiratory effort, lungs clear to auscultation Cardiovascular: RRR, no murmur, no edema Gastrointestinal (Abdomen): normal bowel sounds, soft, nontender, no hepatosplenomegaly Skin: R montgomery wrapped Neurologic: Speech / Cognition: normal speech and normal cognition [place] Psychiatric: Affect: euthymic affect Results & Data Vital Signs (Past 12 Hours) Vital Signs Temp Pulse Pulse Resp BP BP Pulse Ox 12/07/23 11:15 36.6 C 59 L 19 149/62 H 100 12/07/23 07:40 36.6 C 58 L 19 143/75 H 97 12/07/23 07:11 62 12/07/23 07:11 12/07/23 02:58 36.8 C 63 16 149/55 H 95 12/07/23 01:36 36.8 C 63 16 156/54 H 95 12/07/23 01:09 36.8 C 64 18 144/67 H 95 O2 Del Method O2 Flow Rate 12/07/23 11:15 Nasal Cannula 3 12/07/23 07:40 Nasal Cannula 3 12/07/23 07:11 12/07/23 07:11 Nasal Cannula 2 12/07/23 02:58 Room Air 12/07/23 01:36 12/07/23 01:09 Laboratory Results Laboratory Results WBC 8.40 K/ul (4.8-10.8) 12/07/23 05:58 RBC 2.73 M/uL (4.20-5.40) L 12/07/23 05:58 Hgb 8.1 g/dl (12.0-16.0) L 12/07/23 05:58 Hct 24.8 % (37.0-47.0) L 12/07/23 05:58 MCV 90.8 fL (80.0-100.0) 12/07/23 05:58 MCH 29.7 pg (25.0-34.0) 12/07/23 05:58 MCHC 32.7 g/dL (32.0-36.0) D 12/07/23 05:58 RDW Std Deviation 61.4 fL (36.4-46.3) H 12/07/23 05:58 RDW Coeff of Alice 18.7 % (11.5-14.5) H 12/07/23 05:58 Plt Count 237 K/uL (130-400) 12/07/23 05:58 MPV 9.3 fL (9.4-12.4) L 12/07/23 05:58 Immature Gran % (Auto) 0.7 % 12/07/23 05:58 Neut % (Auto) 73.9 % 12/07/23 05:58 Lymph % (Auto) 14.2 % 12/07/23 05:58 [place] % (Auto) 6.1 % 12/07/23 05:58 Eos % (Auto) 4.3 % 12/07/23 05:58 Baso % (Auto) 0.8 % 12/07/23 05:58 Neut # (Auto) 6.21 K/uL (1.40-6.50) 12/07/23 05:58 Lymph # (Auto) 1.19 K/uL (1.20-3.40) L 12/07/23 05:58 [place] # (Auto) 0.51 K/uL (0.11-0.59) 12/07/23 05:58 Eos # (Auto) 0.36 K/uL (0.00-0.50) 12/07/23 05:58 Baso # (Auto) 0.07 K/uL (0.00-0.20) 12/07/23 05:58 Immature Gran # (Auto) 0.06 K/uL (0.01-0.20) 12/07/23 05:58 Polychromasia 1+ 12/06/23 Unknown Anisocytosis Present 12/06/23 Unknown Ovalocytes 1+ 12/06/23 Unknown PT 10.9 Seconds (9.0-12.0) 12/06/23 Unknown INR 1.0 (0.9-1.1) 12/06/23 Unknown Sodium 137 mmol/L (136-145) 12/07/23 05:58 Potassium 3.6 mmol/L (3.5-5.1) 12/07/23 05:58 Chloride 107 mmol/L (98-107) 12/07/23 05:58 Carbon Dioxide 22 mmol/L (21-32) 12/07/23 05:58 Anion Gap 8 (3-11) 12/07/23 05:58 BUN 60 mg/dl (6-23) H 12/07/23 05:58 Creatinine 2.61 mg/dl (0.6-1.2) H 12/07/23 05:58 Est Cr Clr Drug Dosing 14.3 ml/min 12/07/23 05:58 Est GFR ( Amer) 19.2 ml/min 12/07/23 05:58 Est GFR (Non-Af Amer) 16.6 ml/min 12/07/23 05:58 BUN/Creatinine Ratio 23.0 (10-20) H 12/07/23 05:58 Glucose 97 mg/dl (70-99(Fasting)) 12/07/23 05:58 Calcium 8.2 mg/dl (8.6-10.3) L 12/07/23 05:58 Iron 90 mcg/dl (35-150) 12/07/23 05:58 TIBC 191 mcg/dl (250-450) L 12/07/23 05:58 Unsaturated IBC 101 mcg/dl (155-355) L 12/07/23 05:58 Transferrin % Sat 47 % (15-50) 12/07/23 05:58 Ferritin 969.7 ng/ml (8-388) H 12/07/23 05:58 Total Bilirubin 0.5 mg/dl (0.2-1.0) 12/06/23 Unknown AST 15 U/L (13-39) 12/06/23 Unknown ALT 13 U/L (7-52) 12/06/23 Unknown Alkaline Phosphatase 97 U/L (34-104) 12/06/23 Unknown Troponin I High Sens 41.7 pg/ml (0-14) H 12/06/23 Unknown Total Protein 6.9 gm/dl (6.0-8.3) 12/06/23 Unknown Albumin 3.0 gm/dl (3.4-5.0) L 12/06/23 Unknown Globulin 3.9 gm/dl (2.5-4.0) 12/06/23 Unknown Albumin/Globulin Ratio 0.8 (0.9-2) L 12/06/23 Unknown Lipase 40 U/L (11-82) 12/06/23 Unknown Vitamin B12 > 1500 pg/ml (180-914) H 12/06/23 22:27 Blood Type A Positive 12/06/23 17:04 Antibody Screen NEGATIVE 12/06/23 17:04 Crossmatch See Detail 12/06/23 17:04 Impressions Chest X-Ray 12/06/23 16:46 XR chest 1V portable CLINICAL HISTORY: Chest pain, nonspecific COMPARISON STUDY: Chest CT August 29, 2023. Chest radiograph October 31, 2023. FINDINGS: The right pleural catheter has been removed. Small to moderate right pleural effusion is unchanged. There is a small left pleural effusion, slightly increased. Bibasilar opacities have slightly increased. Pulmonary edema has slightly improved when compared to prior exam. Cardiomegaly is unchanged. IMPRESSION: 1. Small to moderate right and small left pleural effusions. Associated bibasi lar opacities could reflect atelectasis or pneumonia. 2. Mild interstitial pulmonary edema, improved since prior exam. ACT 112: Negative or not required by law. Electronically signed by: Rudy Barrow M.D. 12/06/2023 5:15 PM PG Care Time/CCT Total # of Minutes Spent Total Time Spent with Patient: Total time spent is greater than 50% in coordination of care (as documented) at patient's floor/unit and/or counseling patient: Coding Level of Care Code 25680 IN/OBS CONSULT LVL 5,80M Diagnoses Anemia D64.9 Anemia type: unspecified type Chronic kidney disease, stage V N18.5 (1) Anemia Anemia type: unspecified type Qualified Code(s): D64.9 - Anemia, unspecified
[2023-12-07] MEDS: EPOETIN ALFA 10,000 UNITS/ML VIAL SQ ONE (15:39)
[2023-12-07] MEDS: CALCITRIOL 0.25 MCG CAPSULE PO SCH (19:49)
--- NOTE | 2023-12-07 22:17 | Hospitalist Progress Note ---
Date of Service December 07, 2023 Assessment & Plan (1) Acute on chronic anemia: Plan: Acute on chronic anemia - Outpt hgb in 5s, 6.1 on ER check. 2 u pRBC ordered with post H&H check. Due to progressive anemia recommend 2u for transfusion rather than 1-1 with a H&h inbetween. Patient presents with some fatigue and weakness but is relatively asymptomatic despite hemoglobin 5 - Suspect multifactorial with AoCD plus bleeding from RLE wound. No clinical bleeding Was recently discharged 11/03/2023 after admission for anemia of chronic disease Had some bloody output in Pleurx catheter - she also noticed significant bleed from her leg wound otherwise no other source of bleeding was identified on her prior workup No GI bleeding Hemoglobin 6.1, last 8.5 on 11/03/2023 Admitted and receiving 2 units of transfusion. Patient is not microcytic -hemoglobin improved. Did complete a course of Venofer at last hospitalization Continue EPO, nephrology consulted EKG: Normal sinus rhythm without acute ischemic change (2) Acute on chronic diastolic CHF (congestive heart failure): Plan: .Patient reports good increasing bilateral lower extremity edema, and some increase shortness of breath She has JVD, bilateral lower extremity pitting edema, and pulmonary edema on admission although is satting normally on room air She has increased her Lasix p.o. to 80 mg at home but still does not have good output Switch to Lasix 40 mg IV p.o. twice daily.? Impaired absorption with edema Low-salt diet, strict ins and outs (3) Wound of right lower extremity: Plan: Wound which was seen by wound care today. Patient discharged. Patient declines to have this addressed as she notes it was just redressed, prefer to help with that tomorrow, and does not want it is completed. (4) Chronic kidney disease, stage V: Plan: CKD Baseline creatinine approximately 2.763.3 Creatinine 2.8 on admission Trend daily Renally dose medications as needed (5) Hx of pulmonary embolus: Plan: History of pulmonary embolism History of PE 2019, right lower extremity thrombus 2019 Eliquis held for severe anemia (6) Asthma-COPD overlap syndrome: Plan: Asthma/COPD overlap Continue Symbicort Hypertension Continue metoprolol, Imdur, Lasix 20 twice daily (7) Paroxysmal atrial fibrillation: Plan: A-fib, severe MR Continue metoprolol Apixaban held in the setting of severe anemia Previously on amiodarone for A-fib however this was held due to concerns for hepatotoxicity (8) Pleural effusion: Plan: Chronic pleural effusions Patient has had a right Pleurx catheter, this was removed 11/14/2023. This has not been output in some time and patient was a high risk TNKase/, opted to remove this instead - CXR: 1. Small to moderate right and small left pleural effusions. Associated bibasilar opacities could reflect atelectasis or pneumonia. 2. Mild interstitial pulmonary edema, improved since prior exam. No fever, chills, sweats or cough suggestive of pneumonia. Will continue diuretics, antibiotics not currently indicated. Will follow fever curve and daily CBC Admission and Anticipated Discharge Date Admission Date: December 06, 2023 Subjective Patient reports no new symptoms. She states she noticed prior to admission significant bleeding from her wounnd and she fet like it was a puddle of blood in her foot. Review of Systems Review of Systems: All systems reviewed & are unremarkable except as noted in HPI & below Physical Exam Physical Exam: General: A&Ox3. NAD. Cooperative. HEENT: Atraumatic, normocephalic. Pulm: Diminished in the bases symmetrical chest rise. No increased work of breathing. No respiratory distress. Cardiac: RRR, -mrg. Radial pulses intact and symmetrical. Abdominal: Nontender, nondistended, soft. BS present.. Extremities: Right lower extremity with fresh dressing in place C/C/I, no surrounding erythema/warmth/tenderness. Bilateral pitting edema Results & Data Results & Data Vital Signs (Past 12 Hours) Vital Signs Temp Pulse Pulse Resp BP Pulse Ox O2 Del Method 12/07/23 20:33 Room Air 12/07/23 19:31 36.5 C 61 18 135/72 94 Room Air 12/07/23 17:28 57 L 12/07/23 15:59 36.5 C 82 19 162/70 H 95 Room Air 12/07/23 11:15 36.6 C 59 L 19 149/62 H 100 Nasal Cannula O2 Flow Rate 12/07/23 20:33 12/07/23 19:31 12/07/23 17:28 12/07/23 15:59 12/07/23 11:15 3 PG Care Time/CCT Total # of Minutes Spent Total Time Spent with Patient: Total time spent is greater than 50% in coordination of care (as documented) at patient's floor/unit and/or counseling patient: Coding Level of Care Code 34675 SUB INP/OBS CARE 2/35MIN Diagnoses Acute on chronic anemia D64.9 Acute on chronic diastolic CHF (congestive heart failure) I50.33 Wound of right lower extremity S81.801A Chronic kidney disease, stage V N18.5 Hx of pulmonary embolus Z86.711 Asthma-COPD overlap syndrome J44.9 Paroxysmal atrial fibrillation I48.0 Pleural effusion J90
[2023-12-08 06:29] LABS: Basophils # (auto) 0.06 K/uL (0.00-0.20); Basophils % (auto) 0.8 %; Eosinophils # (auto) 0.41 K/uL (0.00-0.50); Eosinophils % (auto) 5.5 %; Hematocrit (blood only) 28.1 % (37.0-47.0); Hemoglobin 9.1 g/dl (12.0-16.0); Immature Granulocytes # (auto) 0.04 K/uL (0.01-0.20); Immature Granulocytes % (auto) 0.5 %; Lymphocytes # (auto) 1.16 K/uL (1.20-3.40); Lymphocytes % (auto) 15.6 %; Mean Corpuscular Hemoglobin 29.9 pg (25.0-34.0); Mean Corpuscular Hgb Conc 32.4 g/dL (32.0-36.0); Mean Corpuscular Volume 92.4 fL (80.0-100.0); Mean Platelet Volume 9.1 fL (9.4-12.4); Monocytes # (auto) 0.43 K/uL (0.11-0.59); Monocytes % (auto) 5.8 %; Neutrophils # (auto) 5.33 K/uL (1.40-6.50); Neutrophils % (auto) 71.8 %; Platelet Count 231 K/uL (130-400); RDW Coefficient of Variation 19.4 % (11.5-14.5); RDW Standard Deviation 63.1 fL (36.4-46.3); Red Blood Count 3.04 M/uL (4.20-5.40); White Blood Count 7.43 K/ul (4.8-10.8)
[2023-12-08 06:49] LABS: Calcium 8.4 mg/dl (8.6-10.3); Est GFR (African American) 18.3 ml/min; Est GFR (Non-African American) 15.7 ml/min; Potassium 4.3 mmol/L (3.5-5.1)
--- NOTE | 2023-12-08 08:38 | Nephrology Progress Note ---
Date of Service December 08, 2023 Assessment & Plan (1) Anemia: Plan: * Iron saturation obtained this hospitalization was after blood transfusion * 10/31/23 iron saturation was 8% with ferritin 445 * Patient has recurrent iron deficiency anemia. Need to r/o GIB * FOBT is pending * B12, folate - acceptable. LDH - wnl, haptoglobin - pending * Agree w/ blood transfusion to maintain Hgb > 8.0 * Epogen 10,000 units SQ x1 administered 12/07/23 * Monitor H&H (2) Chronic kidney disease, stage V: Plan: * CKD stage G5 (End Stage Kidney Disease) w/ baseline Cr 3.8, EGFR 10 cc/min. CKD is of unclear etiology (presented late and never had biopsy with h/o thromboembolic disease and high risk to stop anticoagulant) * Kidney function is stable. Volume status and electrolyte balance are acceptable * Monitor PRP * Poor dialysis candidate due to advanced age, frailty Admission and Anticipated Discharge Date Admission Date: December 06, 2023 Subjective Ms. Raygoza was evaluated in her hospital room this morning. Her RLE remains wrapped and she denies any further overt bleeding. She has not yet collected a stool sample for FOBT Review of Systems Constitutional: no fever Eyes: no problem reported Ear, Nose, Mouth, Throat: no problem reported Respiratory: no cough and no dyspnea Cardiovascular: no chest pain Gastrointestinal: no abdominal pain, no nausea, no vomiting, no diarrhea/loose stools and no blood in stools Integumentary: no rash Neurologic: no problem reported Physical Exam Constitutional: + thin and + frail appearing; not in dis tress ENMT: external ear and nose normal, oropharynx normal Neck: trachea midline, no thyromegaly Respiratory: normal respiratory effort, lungs clear to auscultation Cardiovascular: RRR, no murmur, no edema Gastrointestinal (Abdomen): normal bowel sounds, soft, nontender, no hepatosplenomegaly Neurologic: Speech / Cognition: normal speech and normal cognition Psychiatric: Affect: euthymic affect Results & Data Vital Signs (Past 12 Hours) Vital Signs Temp Pulse Resp BP Pulse Ox O2 Del Method 12/08/23 08:17 Room Air 12/08/23 07:33 36.4 C L 78 18 133/81 92 Room Air 12/08/23 02:29 36.8 C 62 18 132/87 94 Room Air 12/07/23 22:34 36.6 C 62 124/74 93 Room Air Laboratory Results Laboratory Results - last 24 hr 12/07/23 12/08/23 05:58 05:53 WBC 7.43 RBC 3.04 L Hgb 9.1 L Hct 28.1 L MCV 92.4 MCH 29.9 MCHC 32.4 RDW Std Deviation 63.1 H RDW Coeff of Alice 19.4 H Plt Count 231 MPV 9.1 L Immature Gran % (Auto) 0.5 Neut % (Auto) 71.8 Lymph % (Auto) 15.6 [place] % (Auto) 5.8 Eos % (Auto) 5.5 Baso % (Auto) 0.8 Neut # (Auto) 5.33 Lymph # (Auto) 1.16 L [place] # (Auto) 0.43 Eos # (Auto) 0.41 Baso # (Auto) 0.06 Immature Gran # (Auto) 0.04 Haptoglobin Pending Sodium 136 Potassium 4.3 Chloride 105 Carbon Dioxide 23 Anion Gap 8 BUN 57 H Creatinine 2.72 H Est Cr Clr Drug Dosing 14.0 Est GFR ( Amer) 18.3 Est GFR (Non-Af Amer) 15.7 BUN/Creatinine Ratio 21.0 H Glucose 92 Calcium 8.4 L Iron 90 TIBC 191 L Unsaturated IBC 101 L Transferrin % Sat 47 Ferritin 969.7 H Lactate Dehydrogenase 209 Folate 7.25 PG Care Time/CCT Total # of Minutes Spent Total Time Spent with Patient: Total time spent is greater than 50% in coordination of care (as documented) at patient's floor/unit and/or counseling patient: Coding Level of Care Code 57077 SUB INP/OBS CARE 3/50MIN Diagnoses Anemia D64.9 Anemia type: unspecified type Chronic kidney disease, stage V N18.5 (1) Anemia Anemia type: unspecified type Qualified Code(s): D64.9 - Anemia, unspecified
--- NOTE | 2023-12-08 09:55 | Gastrointestinal Consultation ---
Date of Consultation December 08, 2023 Assessment & Plan (1) Anemia: Plan At this time, I suspect that her acute anemia was related to her recent heavy bleeding from her chronic wound in her right lower extremity. Her Hgb has improved with transfusion. she also has chronic anemia that is likely related to chronic disease. There are not any signs of GI blood loss at this time. Patient is not interested in any GI work up such as EGD or colonoscopy given her age. I feel this is reasonable in light of no signs of GI blood loss at this time. - continue to monitor hgb/hct. - Can contact GI if there are any obvious signs of GI bleeding. Supervising Physician Co-Signing Physician Notes Agree with HALEY Renteria as above Interviewed and examined patient and agree with above Abd: Soft, NT, ND, +BS No overt GI bleeding Continue current therapy and supportive care History of Present Illness Reason for Consultation: r/o GIB, anemia Requesting Physician: Rodriguez De La Garza MD Attending Physician: Rodriguez De La Garza History of Present Illness Patient is an 83 year old female with a history of chronic diastolic heart failure, B12 deficiency, COPD, chronic anemia, chronic kidney disease, paroxysmal A-fib on anticoagulation who presented to the ER after outpatient lab work showed significant anemia with hgb of 5. Patient was asymptomatic other than she tells me earlier this week she had heavy bleeding from a chronic wound in her right lower extremity. she tells me she has had this wound for the past 7 months. She tells me that over the weekend she had so much bleeding from her right lower extremity that it was "like a war zone" and "completely soaked my shoes". she tells me that at that time her daughter had recommended ED evaluation but she declined. She would have outpatient labs a day or two later and this prompted her ED visit. Since coming to the hospital she tells me the bleeding has resolved. During her time here she has received 2 units of PRBC and her hgb has improved to 9.1. she denies any GIB. bowels are at baseline. she denies any blood in her stools. no melena. she denies nausea, vomiting, heartburn, dysphagia, abdominal pain. she tells me she has had colonoscopy in the past in [place] but she is not sure of results. she tells me she has no desire to pursue any endoscopic procedures given her age. Allergies Allergy/AdvReac Type Severity Reaction Status Date / Time adhesive AdvReac Intermediate skin tears Verified 11/23/23 13:42 Sulfa (Sulfonamide AdvReac Intermediate HEADACHE, Verified 11/23/23 13:42 Antibiotics) VERTIGO Home Medications Medication Instructions Recorded Confirmed Type sennosides 8.6 mg-docusate sodium 1 tab PO BID #60 tabs 08/19/22 12/06/23 Rx 50 mg tablet (Senokot-S) ipratropium 0.5 mg-albuterol 3 mg 3 ml inhalation Q2H PRN shortness 11/24/22 12/06/23 Rx (2.5 mg base)/3 mL nebulization of breath or wheezing #180 mL soln calcitriol 0.5 mcg capsule 0.5 mcg PO 3XWK #45 caps 12/02/22 12/06/23 Rx apixaban 2.5 mg tablet (Eliquis) 2.5 mg PO BID #180 tabs 01/31/23 12/06/23 Rx polyethylene glycol 3350 17 gram 17 g PO DAILY PRN Constipation 04/21/23 12/06/23 History oral powder packet (Miralax) Over Night Pulse OX #1 ea 05/23/23 12/06/23 Rx Oxygen Home #1 ea 05/23/23 12/06/23 Rx cyanocobalamin (vitamin B-12) 1,000 mcg PO QAM 08/30/23 12/06/23 History 1,000 mcg capsule melatonin 10 mg tablet 10 mg PO HS 08/30/23 12/06/23 History Lift Chair #1 ea 08/31/23 12/06/23 Rx metoprolol tartrate 25 mg tablet 12.5 mg (1/2 x 25 mg) PO BID #90 09/08/23 12/06/23 Rx tabs clobetasol 0.05 % topical ointment 1 applic EXT DAILY #15 grams 09/22/23 12/06/23 Rx furosemide 20 mg tablet 20 mg PO BID #180 tabs 10/24/23 12/06/23 Rx epoetin kloe 40,000 unit/mL 40,000 unit subcut UD 10/31/23 12/06/23 History injection solution isosorbide mononitrate 60 mg 60 mg PO QAM 10/31/23 12/06/23 History tablet,extended release 24 hr albuterol sulfate 90 mcg/actuation 2 puff inhalation Q6H PRN 11/07/23 12/06/23 Rx aerosol inhaler Shortness Of Breath Or Wheezing #18 grams oxycodone-acetaminophen 5 mg-325 0.5 - 1 tab PO BID PRN pain #60 11/21/23 12/06/23 Rx mg tablet tabs paroxetine HCl 10 mg tablet 10 mg PO HS #30 tabs 11/22/23 12/06/23 Rx collagenase clostridium histo. 250 1 applic EXT DAILY #30 grams 12/08/23 Rx unit/gram topical ointment (Santyl) Patient History Medical History Hemorrhage from the ear Rheumatoid arthritis Slow to wake up after anesthesia happened once time Hx of vertigo "none for quite some time, occurred when taking sulfa for her bladder problems" Acute respiratory failure with hypoxia hx-hospitalized 04/21/23 @[facility] Restrictive lung disease daily inh, inh and neb prn Atrial fibrillation with rapid ventricular response currently on eliquis; f/u dr. 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 H/O deep venous thrombosis 2018 Bilateral pulmonary embolism 2018, from DVT Surgical History H/O surgical biopsy 08/18/2023 non-healing lesion left cheek History of esophagogastroduodenoscopy (EGD) Hx of colonoscopy Hx of vein stripping Hx of hysterectomy Family History Mother Blood clot in vein Father Myocardial infarction Sister Blood clot in vein Breast cancer Aunt Blood clot in vein Son Prostate cancer Denies family history of Ovarian cancer Colorectal cancer Social History Smoking Status: Never smoker Second Hand Exposure: No; Do You Dip or Chew Tobacco: No; Hx Alcohol Use: No Hx Substance Use: No Preferred Language: Spanish Communication Ability: Effective Communication Ability Comment: Patient is hard of hearing at this time and requires a white board. 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 How many Children do You have: 3 How many Children do You have Comment: Sons work close and assist pt with meals Feels Safe at Home: Yes Childhood Exposure to Second-Hand Smoke: Yes Diet: low salt caffeine: No Dental Care, Regularly: Yes Physical Activity Frequency: Does not Exercise Seatbelt Use: always Sunscreen Use: Yes Assistive Devices: Walker Review of Systems Review of Systems: All systems reviewed & are unremarkable except as noted in HPI & below Physical Exam Constitutional: WD/WN, vitals as above Respiratory: normal respiratory effort, lungs clear to auscultation Cardiovascular: RRR, no murmur, no edema Gastrointestinal (Abdomen): normal bowel sounds, soft, nontender, no hepatosplenomegaly Psychiatric: Orientation: alert and oriented x 3 Affect: euthymic affect Results & Data Vital Signs (Past 12 Hours) Vital Signs Temp Pulse Resp BP Pulse Ox O2 Del Method 12/08/23 08:17 Room Air 12/08/23 07:33 97.5 F L 78 18 133/81 92 Room Air 12/08/23 02:29 98.2 F 62 18 132/87 94 Room Air 12/07/23 22:34 97.9 F 62 124/74 93 Room Air Coding Level of Care Code 22535 INT INP/OBS CARE 2/55MIN Diagnoses Anemia D64.9 Anemia type: unspecified type (1) Anemia Anemia type: unspecified type Qualified Code(s): D64.9 - Anemia, unspecified
--- NOTE | 2023-12-08 10:45 | Discharge Summary ---
Date of Service December 08, 2023 Admission HPI Per Admitting Provider Martha is an 83-year-old female with a history of chronic diastolic heart failure, B12 deficiency, COPD, paroxysmal A-fib on anticoagulation who presented to the ER after outpatient lab work showed significant anemia. Patient was asymptomatic but denied lightheadedness, dizziness, shortness of breath. History of AoCD, b12 deficiency. Some fatigue otherwise felt OK today. Outpatient labs hgb 5 --> referred to ER RLE chronic wound that she declined assessment of --> was bleeding on Tuesday. Hemostasis was achieved at home after wrapping and ER was held x3 days and resumed today Is present. Seen at the bedside. She reports getting Pleurx out and since that she thought she has been doing fairly well. She did have some bleeding from her right lower extremity wound over the last 3 days and finally this stopped ye and was freshly wrapped by wound care today. No warmth, erythema, tenderness. No fever chills or sweats. She has had worsened swelling in her lower extremities bilaterally and has increased her Lasix to 80 mg, but this has not helped with the swelling. Reports that she fatigues easily and has a little shortness of breath, but no shortness of breath at bedside now and has had no chest pain Medical History: Reviewed Medications: Reviewed Surgical History: Reviewed Family history: Reviewed Allergies: Reviewed Social History: Reviewed Code Status: Full Discharge Data Allergies Allergy/AdvReac Type Severity Reaction Status Date / Time adhesive AdvReac Intermediate skin tears Verified 11/23/23 13:42 Sulfa (Sulfonamide AdvReac Intermediate HEADACHE, Verified 11/23/23 13:42 Antibiotics) VERTIGO Consultations 12/06/23 18:44 ED Decision to Admit Stat 12/07/23 21:00 Consult Nephrology Routine 12/08/23 08:03 Consult Gastroenterology Routine Hospital Course (1) Acute on chronic anemia: Acute on chronic anemia - Outpt hgb in 5s, 6.1 on ER check. 2 u pRBC ordered with post H&H check. Due to progressive anemia recommend 2u for transfusion rather than 1-1 with a H&h i nbetween. Patient presents with some fatigue and weakness but is relatively asymptomatic despite hemoglobin 5 - Suspect multifactorial with AoCD plus bleeding from RLE wound. No clinical bleeding Was recently discharged 11/03/2023 after admission for anemia of chronic disease Had some bloody output in Pleurx catheter - she also noticed significant bleed from her leg wound otherwise no other source of bleeding was identified on her prior workup No GI bleeding Hemoglobin 6.1, last 8.5 on 11/03/2023 Admitted and receiving 2 units of transfusion. Patient is not microcytic -hemoglobin improved. Did complete a course of Venofer at last hospitalization Continue EPO, nephrology consulted EKG: Normal sinus rhythm without acute ischemic change (2) Acute on chronic diastolic CHF (congestive heart failure): .Patient reports good increasing bilateral lower extremity edema, and some increase shortness of breath She has JVD, bilateral lower extremity pitting edema, and pulmonary edema on admission although is satting normally on room air She has increased her Lasix p.o. to 80 mg at home but still does not have good output Switch to Lasix 40 mg IV p.o. twice daily.? Impaired absorption with edema Low-salt diet, strict ins and outs (3) Wound of right lower extremity: Wound which was seen by wound care today. Patient discharged. Patient declines to have this addressed as she notes it was just redressed, prefer to help with that tomorrow, and does not want it is completed. (4) Chronic kidney disease, stage V: CKD Baseline creatinine approximately 2.763.3 Creatinine 2.8 on admission Trend daily Renally dose medications as needed (5) Hx of pulmonary embolus: History of pulmonary embolism History of PE 2019, right lower extremity thrombus 2019 Eliquis held for severe anemia (6) Asthma-COPD overlap syndrome: Asthma/COPD overlap Continue Symbicort Hypertension Continue metoprolol, Imdur, Lasix 20 twice daily (7) Paroxysmal atrial fibrillation: A-fib, severe MR Continue metoprolol Apixaban held in the setting of severe anemia Previously on amiodarone for A-fib however this was held due to concerns for hepatotoxicity (8) Pleural effusion: Chronic pleural effusions Patient has had a right Pleurx catheter, this was removed 11/14/2023. This has not been output in some time and patient was a high risk TNKase/, opted to remove this instead - CXR: 1. Small to moderate right and small left pleural effusions. Associated bibasilar opacities could reflect atelectasis or pneumonia. 2. Mild interstitial pulmonary edema, improved since prior exam. No fever, chills, sweats or cough suggestive of pneumonia. Will continue diuretics, antibiotics not currently indicated. Will follow fever curve and daily CBC Discharge Plan Discharge Items Patient Disposition: Home - Self-Care Reason For Visit: ACUTE ON CHRONIC ANEMIA Discharge Diagnosis: acute on chronic anemia Activity: Resume your previous activity Non-emergency contact: Primary Care Provider Call non-emergency contact if: you have any medication questions Follow-up/Referrals: Soledad Meier MD [Primary Care Provider] - Diet: Heart Healthy Ambulatory Orders: Complete Blood Count no Diff (Routine) Timeframe: 1 Week Location: Determined by Patient Ordered By: Rodriguez Olivares Attending Provider Instructions: recommend holding eliquis for at least one week. recommend having PCP reorder this medication. Please see PRIMARY CARE PROVIDER in 1-2 weeks. Recommend rechecking hemoglobin in 7 days. Pending Studies at Discharge: No Stand-Alone Forms: My myDocket, Smoking Cessation Medications and DC Order Prescriptions: New Santyl 250 unit/gram Ointment 1 applic EXT DAILY Qty: 30 0RF Continued calcitriol 0.5 mcg capsule 0.5 mcg PO 3XWK Qty: 45 3RF Rx Instructions: TAKE MON, WED, & FRI. IN THE HS. (DME) Lift Chair Misc See Rx Instructions .Route Qty: 1 0RF Rx Instructions: Mechanical Lift Chair metoprolol tartrate 25 mg tablet 12.5 mg PO BID Qty: 90 3RF furosemide 20 mg tablet 20 mg PO BID Qty: 180 3RF Rx Instructions: Per daughter, can take extra prn oxycodone-acetaminophen 5-325 mg tablet 0.5 - 1 tab PO BID PRN (Reason: pain) Qty: 60 0RF paroxetine HCl 10 mg tablet 10 mg PO HS Qty: 30 0RF ipratropium-albuterol 0.5 mg-3 mg(2.5 mg base)/3 mL solution for nebulization 3 ml inhalation Q2H PRN (Reason: shortness of breath or wheezing) Qty: 180 3RF (DME) Oxygen Home Liters Per Minute See Rx Instructions .MEDSUPPLY Qty: 1 0RF Rx Instructions: Home Oxygen concentrator with portability, test for conserving device. 0 via n/c at rest and 4LPM via n/c with exertion and sleep; KYLAH 99. (DME) Over Night Pulse OX Misc See Rx Instructions .MEDSUPPLY Qty: 1 0RF Rx Instructions: As directed albuterol sulfate 90 mcg/actuation HFA aerosol inhaler 2 puff INH Q6H PRN (Reason: Shortness Of Breath Or Wheezing) Qty: 18 4RF sennosides-docusate sodium [Senokot-S] 8.6-50 mg Tablet 1 tab PO BID Qty: 60 0RF polyethylene glycol 3350 [Miralax] 17 gram powder in packet 17 g PO DAILY PRN (Reason: Constipation) clobetasol 0.05 % Ointment 1 applic EXT DAILY Qty: 15 0RF isosorbide mononitrate 60 mg Tablet Extended Release 24 Hr 60 mg PO QAM epoetin kole 40,000 unit/mL solution 40,000 unit subcut UD Rx Instructions: Hold for Hgb >[address] PRO EVERY 2 WEEKS cyanocobalamin (vitamin B-12) 1,000 mcg capsule 1,000 mcg PO QAM melatonin 10 mg Tablet 10 mg PO HS Held Eliquis 2.5 mg tablet 2.5 mg PO BID Qty: 180 3RF Hold Instructions: Resume on 12/15/23. until cleared by PCP Discharge Orders: Discharge Order (Routine); Ordered 12/08/23 Ordered By: Rodriguez De La Garza Admission Data Admit Date/Time: 12/06/23 18:54 Attending Provider: Rodriguez De La Garza Admit Provider: Blayne Singleton Primary Care Provider: Soledad Meier Other Providers: Blayne Singleton; [facility]; Brian Metzger; Avery Hammond; Machelle Restrepo; Michelle Dixon; Stephany Darnell; Catrina Read; Carmen Jensen; Favio Baeza; Shar Shirley; Haven Jean-Baptiste; Aurelia Dozier; Tj Lopez; Mima Christiansen; Shana Edgar; Alexandra Sidhu; Fiona Perez; Robbin Oropeza; Chuck Leon; Cornelio Singer; Lou Rider; Danny Luciano Jr Coding Diagnoses Acute on chronic anemia D64.9 Acute on chronic diastolic CHF (congestive heart failure) I50.33 Wound of right lower extremity S81.801A Chronic kidney disease, stage V N18.5 Hx of pulmonary embolus Z86.711 Asthma-COPD overlap syndrome J44.9 Paroxysmal atrial fibrillation I48.0 Pleural effusion J90
[2023-12-08] MEDS: COLLAGENASE OINT 30 GM TUBE EXT SCH (11:47)
--- NOTE | 2023-12-08 13:09 | Hospitalist Progress Note ---
Date of Service December 08, 2023 Assessment & Plan (1) Acute on chronic anemia: Plan: Acute on chronic anemia - Outpt hgb in 5s, 6.1 on ER check. 2 u pRBC ordered with post H&H check. Due to progressive anemia recommend 2u for transfusion rather than 1-1 with a H&h inbetween. Patient presents with some fatigue and weakness but is relatively asymptomatic despite hemoglobin 5 - Suspect multifactorial with AoCD plus bleeding from RLE wound. No clinical bleeding Was recently discharged 11/03/2023 after admission for anemia of chronic disease Had some bloody output in Pleurx catheter - she also noticed significant bleed from her leg wound otherwise no other source of bleeding was identified on her prior workup No GI bleeding Hemoglobin 6.1, last 8.5 on 11/03/2023 Admitted and receiving 2 units of transfusion. Patient is not microcytic -hemoglobin improved. Did complete a course of Venofer at last hospitalization Continue EPO, nephrology consulted EKG: Normal sinus rhythm without acute ischemic changed Reviewed cbc on 12/07 (2) Acute on chronic diastolic CHF (congestive heart failure): Plan: .Patient reports good increasing bilateral lower extremity edema, and some increase shortness of breath She has JVD, bilateral lower extremity pitting edema, and pulmonary edema on admission although is satting normally on room air She has increased her Lasix p.o. to 80 mg at home but still does not have good output Switch to Lasix 40 mg IV p.o. twice daily.? Impaired absorption with edema Low-salt diet, strict ins and outs (3) Wound of right lower extremity: Plan: Wound which was seen by wound care today. Patient discharged. Patient declines to have this addressed as she notes it was just redressed, prefer to help with that tomorrow, and does not want it is completed. (4) Chronic kidney disease, stage V: Plan: CKD Baseline creatinine approximately 2.763.3 Creatinine 2.8 on admission Trend daily Renally dose medications as needed (5) Hx of pulmonary embolus: Plan: History of pulmonary embolism History of PE 2019, right lower extremity thrombus 2019 Eliquis held for severe anemia (6) Asthma-COPD overlap syndrome: Plan: Asthma/COPD overlap Continue Symbicort Hypertension Continue metoprolol, Imdur, Lasix 20 twice daily (7) Paroxysmal atrial fibrillation: Plan: A-fib, severe MR Continue metoprolol Apixaban held in the setting of severe anemia Previously on amiodarone for A-fib however this was held due to concerns for hepatotoxicity (8) Pleural effusion: Plan: Chronic pleural effusions Patient has had a right Pleurx catheter, this was removed 11/14/2023. This has not been output in some time and patient was a high risk TNKase/, opted to remove this instead - CXR: 1. Small to moderate right and small left pleural effusions. Associated bibasilar opacities could reflect atelectasis or pneumonia. 2. Mild interstitial pulmonary edema, improved since prior exam. No fever, chills, sweats or cough suggestive of pneumonia. Will continue diuretics, antibiotics not currently indicated. Will follow fever curve and daily CBC Admission and Anticipated Discharge Date Admission Date: December 06, 2023 Subjective 83 yo male reports no new symptoms. Review of Systems Review of Systems: All systems reviewed & are unremarkable except as noted in HPI & below Physical Exam Physical Exam: General: A&Ox3. NAD. Cooperative. HEENT: Atraumatic, normocephalic. Pulm: Diminished in the bases symmetrical chest rise. No increased work of breathing. No respiratory distress. Cardiac: RRR, -mrg. Radial pulses intact and symmetrical. Abdominal: Nontender, nondistended, soft. BS present.. Extremities: Right lower extremity with fresh dressing in place C/C/I, no surrounding erythema/warmth/tenderness. Bilateral pitting edema Results & Data Results & Data Vital Signs (Past 12 Hours) Vital Signs Temp Pulse Resp BP Pulse Ox O2 Del Method 12/08/23 11:20 36.5 C 89 18 127/84 93 Room Air 12/08/23 08:17 Room Air 12/08/23 07:33 36.4 C L 78 18 133/81 92 Room Air 12/08/23 02:29 36.8 C 62 18 132/87 94 Room Air PG Care Time/CCT Total # of Minutes Spent Total Time Spent with Patient: Total time spent is greater than 50% in coordination of care (as documented) at patient's floor/unit and/or counseling patient: Coding Level of Care Code 17432 SUB INP/OBS CARE 2/35MIN Diagnoses Acute on chronic anemia D64.9 Acute on chronic diastolic CHF (congestive heart failure) I50.33 Wound of right lower extremity S81.801A Chronic kidney disease, stage V N18.5 Hx of pulmonary embolus Z86.711 Asthma-COPD overlap syndrome J44.9 Paroxysmal atrial fibrillation I48.0 Pleural effusion J90
[2023-12-09 08:06] LABS: Basophils # (auto) 0.06 K/uL (0.00-0.20); Basophils % (auto) 0.9 %; Eosinophils # (auto) 0.43 K/uL (0.00-0.50); Eosinophils % (auto) 6.3 %; Hematocrit (blood only) 27.7 % (37.0-47.0); Hemoglobin 8.7 g/dl (12.0-16.0); Immature Granulocytes # (auto) 0.05 K/uL (0.01-0.20); Immature Granulocytes % (auto) 0.7 %; Lymphocytes # (auto) 1.36 K/uL (1.20-3.40); Lymphocytes % (auto) 19.9 %; Mean Corpuscular Hemoglobin 29.6 pg (25.0-34.0); Mean Corpuscular Hgb Conc 31.4 g/dL (32.0-36.0); Mean Corpuscular Volume 94.2 fL (80.0-100.0); Mean Platelet Volume 9.5 fL (9.4-12.4); Monocytes # (auto) 0.53 K/uL (0.11-0.59); Monocytes % (auto) 7.7 %; Neutrophils # (auto) 4.41 K/uL (1.40-6.50); Neutrophils % (auto) 64.5 %; Platelet Count 227 K/uL (130-400); RDW Coefficient of Variation 20.1 % (11.5-14.5); Red Blood Count 2.94 M/uL (4.20-5.40); White Blood Count 6.84 K/ul (4.8-10.8)
[2023-12-09 08:11] LABS: BUN Creatinine Ratio 20.6 (10-20); Calcium 8.4 mg/dl (8.6-10.3); Creatinine Clr Calc Pharmacy 13.3 ml/min; Est GFR (African American) 17.1 ml/min; Est GFR (Non-African American) 14.8 ml/min; Potassium 4.4 mmol/L (3.5-5.1)
[2023-12-09 08:29] LABS: Anisocytosis Present; Polychromasia 1+
--- NOTE | 2023-12-09 08:43 | Nephrology Progress Note ---
Date of Service December 09, 2023 Assessment & Plan (1) Anemia: Plan: * Iron saturation obtained this hospitalization was after blood transfusion * 10/31/23 iron saturation was 8% with ferritin 445 * Patient has recurrent iron deficiency anemia. 12/15 FOBT was negative * B12, folate - acceptable. LDH - wnl, haptoglobin - pending * Agree w/ blood transfusion to maintain Hgb > 8.0 * Epogen 10,000 units SQ x1 administered 12/07/23 * No further Nephrology evaluation indicated at this time. Will sign off. Please call if further assistance is needed * I have asked my office staff to contact patient and schedule Nephrology follow up w/ Dr. Rivas within 7-14 days. Please advise patient to have nonfasting blood work completed 2 days prior to visit. Orders are active in outpatient EMR (2) Chronic kidney disease, stage V: Plan: * CKD stage G5 (End Stage Kidney Disease) w/ baseline Cr 3.8, EGFR 10 cc/min. CKD is of unclear etiology (presented late and never had biopsy with h/o thromboembolic disease and high risk to stop anticoagulant) * Kidney function is stable. Volume status and electrolyte balance are acceptable * Monitor PRP * Poor dialysis candidate due to advanced age, frailty Admission and Anticipated Discharge Date Admission Date: December 06, 2023 Subjective Ms. Raygoza was evaluated in her hospital room this morning. Her RLE remains wrapped and she denies any further overt bleeding. FOBT was negative. She is anxious to return home Review of Systems Constitutional: no fever Eyes: no problem reported Ear, Nose, Mouth, Throat: no problem reported Respiratory: no cough and no dyspnea Cardiovascular: no chest pain Gastrointestinal: no abdominal pain, no nausea, no vomiting, no diarrhea/loose stools and no blood in stools Integumentary: no rash Neurologic: no problem reported Physical Exam Constitutional: + thin and + frail appearing; not in dis tress ENMT: external ear and nose normal, oropharynx normal Neck: trachea midline, no thyromegaly Respiratory: normal respiratory effort, lungs clear to auscultation Cardiovascular: RRR, no murmur, no edema Gastrointestinal (Abdomen): normal bowel sounds, soft, nontender, no hepa tosplenomegaly Neurologic: Speech / Cognition: normal speech and normal cognition Psychiatric: Affect: euthymic affect Results & Data Vital Signs (Past 12 Hours) Vital Signs Temp Pulse Pulse Resp BP Pulse Ox O2 Del Method 12/09/23 07:40 36.8 C 79 17 132/81 96 Room Air 12/09/23 03:57 51 L 12/09/23 03:00 36.4 C L 68 16 126/70 96 Room Air 12/08/23 22:32 36.5 C 60 16 122/67 96 Room Air 12/08/23 22:00 84 Laboratory Results Laboratory Results - last 24 hr 12/08/23 12/09/23 Unknown 07:30 WBC 6.84 RBC 2.94 L Hgb 8.7 L Hct 27.7 L MCV 94.2 MCH 29.6 MCHC 31.4 L RDW Std Deviation 68.0 H RDW Coeff of Alice 20.1 H Plt Count 227 MPV 9.5 Immature Gran % (Auto) 0.7 Neut % (Auto) 64.5 Lymph % (Auto) 19.9 [place] % (Auto) 7.7 Eos % (Auto) 6.3 Baso % (Auto) 0.9 Neut # (Auto) 4.41 Lymph # (Auto) 1.36 [place] # (Auto) 0.53 Eos # (Auto) 0.43 Baso # (Auto) 0.06 Immature Gran # (Auto) 0.05 Polychromasia 1+ Anisocytosis Present Sodium 134 L Potassium 4.4 Chloride 103 Carbon Dioxide 22 Anion Gap 9 BUN 59 H Creatinine 2.87 H Est Cr Clr Drug Dosing 13.3 Est GFR ( Amer) 17.1 Est GFR (Non-Af Amer) 14.8 BUN/Creatinine Ratio 20.6 H Glucose 87 Calcium 8.4 L Stool Occult Bld Scrn Negative PG Care Time/CCT Total # of Minutes Spent Total Time Spent with Patient: Total time spent is greater than 50% in coordination of care (as documented) at patient's floor/unit and/or counseling patient: Coding Level of Care Code 04490 SUB INP/OBS CARE 3/50MIN Diagnoses Anemia D64.9 Anemia type: unspecified type Chronic kidney disease, stage V N18.5 (1) Anemia Anemia type: unspecified type Qualified Code(s): D64.9 - Anemia, unspecified
--- NOTE | 2023-12-09 10:40 | Discharge Summary ---
Date of Service December 09, 2023 Principal Diagnosis anemia Discharge Exam General: A&Ox3. NAD. Cooperative. HEENT: Atraumatic, normocephalic. Pulm: Diminished in the bases symmetrical chest rise. No increased work of breathing. No respiratory distress. Cardiac: RRR, -mrg. Radial pulses intact and symmetrical. Abdominal: Nontender, nondistended, soft. BS present.. Extremities: Right lower extremity with fresh dressing in place C/C/I, no surrounding erythema/warmth/tenderness. Bilateral pitting edema Discharge Data Allergies Allergy/AdvReac Type Severity Reaction Status Date / Time adhesive AdvReac Intermediate skin tears Verified 11/23/23 13:42 Sulfa (Sulfonamide AdvReac Intermediate HEADACHE, Verified 11/23/23 13:42 Antibiotics) VERTIGO Consultations 12/06/23 18:44 ED Decision to Admit Stat 12/07/23 21:00 Consult Nephrology Routine 12/08/23 08:03 Consult Gastroenterology Routine Hospital Course (1) Acute on chronic anemia: Acute on chronic anemia - Outpt hgb in 5s, 6.1 on ER check. 2 u pRBC ordered with post H&H check. Due to progressive anemia recommend 2u for transfusion rather than 1-1 with a H&h inbetween. Patient presents with some fatigue and weakness but is relatively asymptomatic despite hemoglobin 5 - Suspect multifactorial with AoCD plus bleeding from RLE wound. No clinical bleeding Was recently discharged 11/03/2023 after admission for anemia of chronic disease Had some bloody output in Pleurx catheter - she also noticed significant bleed from her leg wound otherwise no other source of bleeding was identified on her prior workup No GI bleeding Hemoglobin 6.1, last 8.5 on 11/03/2023 Admitted and received 2 units of transfusion. Patient is not microcytic -hemoglobin improved and remained stable Continue EPO, nephrology consulted EKG: Normal sinus rhythm without acute ischemic changed Reviewed cbc on 12/07 and 12/08 Hemoglobin is stable. GI consulted. no intervention required instructions yto patient included: holding eliquis for at least one week. recommend having PCP reorder this medication. Please see PRIMARY CARE PROVIDER in 1-2 weeks. Recommend rechecking hemoglobin in 7 days. (2) Acute on chronic diastolic CHF (congestive heart failure): .Patient reports good increasing bilateral lower extremity edema, and some increase shortness of breath She has JVD, bilateral lower extremity pitting edema, and pulmonary edema on admission although is satting normally on room air She has increased her Lasix p.o. to 80 mg at home but still does not have good output Switch to Lasix 40 mg IV p.o. twice daily.? Impaired absorption with edema Low-salt diet, strict ins and outs (3) Wound of right lower extremity: Wound which was seen by wound care today. Patient discharged. Patient declines to have this addressed as she notes it was just redressed, prefer to help with that tomorrow, and does not want it is completed. (4) Chronic kidney disease, stage V: CKD Baseline creatinine approximately 2.763.3 Creatinine 2.8 on admission Trend daily Renally dose medications as needed (5) Hx of pulmonary embolus: History of pulmonary embolism History of PE 2019, right lower extremity thrombus 2019 Eliquis held for severe anemia (6) Asthma-COPD overlap syndrome: Asthma/COPD overlap Continue Symbicort Hypertension Continue metoprolol, Imdur, Lasix 20 twice daily (7) Paroxysmal atrial fibrillation: A-fib, severe MR Continue metoprolol Apixaban held in the setting of severe anemia Previously on amiodarone for A-fib however this was held due to concerns for hepatotoxicity (8) Pleural effusion: Chronic pleural effusions Patient has had a right Pleurx catheter, this was removed 11/14/2023. This has not been output in some time and patient was a high risk TNKase/, opted to remove this instead - CXR: 1. Small to moderate right and small left pleural effusions. Associated bibasilar opacities could reflect atelectasis or pneumonia. 2. Mild interstitial pulmonary edema, improved since prior exam. No fever, chills, sweats or cough suggestive of pneumonia. Will continue diuretics, antibiotics not currently indicated. Will follow fever curve and daily CBC Total Time Total Time Spent Total Time Spent (In Minutes): 32 Discharge Plan Discharge Items Patient Disposition: Home - Home Health Services Reason For Visit: ACUTE ON CHRONIC ANEMIA Discharge Diagnosis: acute on chronic anemia Activity: Resume your previous activity Non-emergency contact: Primary Care Provider Call non-emergency contact if: you have any medication questions Follow-up/Referrals: Soledad Meier MD [Primary Care Provider] - 05/24/24 11:00 am (with Dejuan Reynolds PA-C. ) Diet: Heart Healthy Ambulatory Orders: Complete Blood Count no Diff (Routine) Timeframe: 1 Week Location: Determined by Patient Ordered By: Rodriguez Olivares Attending Provider Instructions: recommend holding eliquis for at least one week. recommend having PCP reorder this medication. Please see PRIMARY CARE PROVIDER in 1-2 weeks. Recommend rechecking hemoglobin in 7 days. Pending Studies at Discharge: No Stand-Alone Forms: My [facility] [employer], Smoking Cessation Medications and DC Order Prescriptions: New Santyl 250 unit/gram Ointment 1 applic EXT DAILY Qty: 30 0RF Continued calcitriol 0.5 mcg capsule 0.5 mcg PO 3XWK Qty: 45 3RF Rx Instructions: TAKE MON, WED, & FRI. IN THE HS. 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 Chair metoprolol tartrate 25 mg tablet 12.5 mg PO BID Qty: 90 3RF furosemide 20 mg tablet 20 mg PO BID Qty: 180 3RF Rx Instructions: Per daughter, can take extra prn oxycodone-acetaminophen 5-325 mg tablet 0.5 - 1 tab PO BID PRN (Reason: pain) Qty: 60 0RF paroxetine HCl 10 mg tablet 10 mg PO HS Qty: 30 0RF ipratropium-albuterol 0.5 mg-3 mg(2.5 mg base)/3 mL solution for nebulization 3 ml inhalation Q2H PRN (Reason: shortness of breath or wheezing) Qty: 180 3RF (DME) Oxygen Home Liters Per Minute See Rx Instructions .MEDSUPPLY Qty: 1 0RF Rx Instructions: Home Oxygen concentrator with portability, test for conserving device. 0 via n/c at rest and 4LPM via n/c with exertion and sleep; KYLAH 99. (DME) Over Night Pulse OX Misc See Rx Instructions .MEDSUPPLY Qty: 1 0RF Rx Instructions: As directed albuterol sulfate 90 mcg/actuation HFA aerosol inhaler 2 puff INH Q6H PRN (Reason: Shortness Of Breath Or Wheezing) Qty: 18 4RF sennosides-docusate sodium [Senokot-S] 8.6-50 mg Tablet 1 tab PO BID Qty: 60 0RF polyethylene glycol 3350 [Miralax] 17 gram powder in packet 17 g PO DAILY PRN (Reason: Constipation) clobetasol 0.05 % Ointment 1 applic EXT DAILY Qty: 15 0RF isosorbide mononitrate 60 mg Tablet Extended Release 24 Hr 60 mg PO QAM epoetin kole 40,000 unit/mL solution 40,000 unit subcut UD Rx Instructions: Hold for Hgb >[address] PRO EVERY 2 WEEKS cyanocobalamin (vitamin B-12) 1,000 mcg capsule 1,000 mcg PO QAM melatonin 10 mg Tablet 10 mg PO HS Held Eliquis 2.5 mg tablet 2.5 mg PO BID Qty: 180 3RF Hold Instructions: Resume on 12/15/23. until cleared by PCP Discharge Orders: Discharge Order (Routine); Ordered 12/09/23 Ordered By: Rodriguez De La Garza Admission Data Admit Date/Time: 12/06/23 18:54 Attending Provider: Rodriguez De La Garza Admit Provider: Blayne Singleton Primary Care Provider: Soledad Meier Other Providers: Blayne Singleton; Robert [facility]; Brian Metzger; Avery Hammond; Machelle Restrepo; Michelle Dixon; Stephany Darnell; Catrina Read; Carmen Jensen; Favio Baeza; Shar Shirley; Haven Jean-Baptiste; Aurelia Dozier; Tj Lopez Alyssa; Shana Edgar; Alexandra Sidhu; Fiona Perez; Robbin Oropeza; Chuck Leon; Cornelio Singer; Lou Rider; Danny Luciano Jr Other Interventions: Discharge Summary Assessment (RN) Last Done: 12/09/23 11:31 Coding Level of Care Code 29875 INP/OBS DISCH >30 MIN Diagnoses Acute on chronic anemia D64.9 Acute on chronic diastolic CHF (congestive heart failure) I50.33 Wound of right lower extremity S81.801A Chronic kidney disease, stage V N18.5 Hx of pulmonary embolus Z86.711 Asthma-COPD overlap syndrome J44.9 Paroxysmal atrial fibrillation I48.0 Pleural effusion J90
== END 2023-12-09 12:45 | disposition home health service (06) | DRG 811 ==
LOC: ED 16:36 → SUATTDRO 18:54 → EDINP 18:54 → 2S 20:08
DX: N25.81 Secondary hyperparathyroidism of renal origin; D50.9 Iron deficiency anemia, unspecified; Z86.711 Personal history of pulmonary embolism; D63.8 Anemia in other chronic diseases classified elsewhere; Z99.81 Dependence on supplemental oxygen; S81.801A Unspecified open wound, right lower leg, initial encounter; I50.33 Acute on chronic diastolic (congestive) heart failure; X58.XXXA Exposure to other specified factors, initial encounter; N18.5 Chronic kidney disease, stage 5; Z91.048 Other nonmedicinal substance allergy status; J44.89 Other specified chronic obstructive pulmonary disease; M06.9 Rheumatoid arthritis, unspecified; I34.0 Nonrheumatic mitral (valve) insufficiency; Z79.01 Long term (current) use of anticoagulants; I48.0 Paroxysmal atrial fibrillation; I13.2 Hypertensive heart and chronic kidney disease with heart failure and with stage 5 chronic kidney disease, or end stage renal disease; Z86.718 Personal history of other venous thrombosis and embolism; Z88.2 Allergy status to sulfonamides

== ENCOUNTER 2024-09-27 20:26 | Inpatient (IN) ==
[2024-09-27 20:44] LABS: Basophils # (auto) 0.03 K/uL (0.00-0.20); Basophils % (auto) 0.4 %; Eosinophils % (auto) 4.3 %; Hematocrit (blood only) 30.5 % (37.0-47.0); Hemoglobin 9.4 g/dl (12.0-16.0); Immature Granulocytes # (auto) 0.03 K/uL (0.01-0.20); Immature Granulocytes % (auto) 0.4 %; Lymphocytes # (auto) 1.06 K/uL (1.20-3.40); Lymphocytes % (auto) 15.3 %; Mean Corpuscular Hgb Conc 30.8 g/dL (32.0-36.0); Mean Corpuscular Volume 97.4 fL (80.0-100.0); Mean Platelet Volume 9.7 fL (9.4-12.4); Monocytes # (auto) 0.64 K/uL (0.11-0.59); Monocytes % (auto) 9.2 %; Neutrophils # (auto) 4.86 K/uL (1.40-6.50); Neutrophils % (auto) 70.4 %; Platelet Count 182 K/uL (130-400); RDW Coefficient of Variation 15.9 % (11.5-14.5); RDW Standard Deviation 51.8 fL (36.4-46.3); Red Blood Count 3.13 M/uL (4.20-5.40); White Blood Count 6.92 K/ul (4.8-10.8)
--- NOTE | 2024-09-27 20:52 | CT Scan Report ---
Exam(s): CT HEAD Without Contrast EXAM: CT Head Without Intravenous Contrast CLINICAL HISTORY: Reason for exam: neuro deficit, acute stroke suspected. TECHNIQUE: Axial computed tomography images of the head/brain without intravenous contrast. CTDI is 64.12 mGy and DLP is 962.98 mGy-cm. Automated exposure control was utilized for the study. A dose lowering technique was utilized adhering to the principles of ALARA. COMPARISON: No relevant prior studies available. FINDINGS: Artifacts: Images are degraded by motion artifact. Brain: No intracranial hemorrhage, mass-effect, or cerebral edema. Global parenchymal atrophy. Ventricles: Unremarkable. Bones/joints: Unremarkable. No fracture. Soft tissues: Unremarkable. Sinuses: No acute sinusitis. Mastoid air cells: Unremarkable as visualized. IMPRESSION: 1. No acute intracranial abnormality. Consider MRI if there is persistent concern. Communications: Call Doctor Stroke Electronically signed by: Raheem Steve MD 09/27/24 20:51 PM
[2024-09-27 21:00] LABS: Albumin Globulin Ratio 1.1 (0.9-2); Albumin Level 3.8 gm/dl (3.4-5.0); BUN Creatinine Ratio 19.1 (10-20); Bilirubin,Total 0.5 mg/dl (0.2-1.0); Calcium 9.4 mg/dl (8.6-10.3); Creatinine Clr Calc Pharmacy 10.5 ml/min; Globulin 3.5 gm/dl (2.5-4.0); Potassium 3.8 mmol/L (3.5-5.1); Total Protein 7.3 gm/dl (6.0-8.3)
[2024-09-27 21:12] LABS: Troponin I High Sensitivity 105.7 pg/ml (0-14)
[2024-09-27 21:15] LABS: INR 1.1 (0.9-1.1); Partial Thromboplastin Ratio 1.1; Partial Thromboplastin Time 30 Seconds (21-31)
--- NOTE | 2024-09-27 21:29 | XRay Report ---
Exam(s): XR CXR 1 VIEW EXAM: XR Chest, 1 View CLINICAL HISTORY: Reason for exam: neuro deficit, acute stroke suspected. TECHNIQUE: Frontal view of the chest. COMPARISON: Chest x-ray 09/13/2024 FINDINGS: Lungs: Multifocal interstitial and airspace opacities which has progressed at the left base. Pleural space: Bilateral pleural effusions. Heart: Unremarkable. No cardiomegaly. IMPRESSION: 1. Multifocal interstitial and airspace opacities which has progressed at the left base. 2. Bilateral pleural effusions. Electronically signed by: Raheem Steve MD 09/27/24 21:28 PM
--- NOTE | 2024-09-27 21:33 | History & Physical Report ---
Date of Service September 27, 2024 Assessment & Plan (1) Cerebrovascular accident: (2) Stage IV adenocarcinoma of lung: (3) Paroxysmal atrial fibrillation: (4) Heart failure: (5) Chronic kidney disease, stage V: (6) Hypertension: Plan 84yo right-hand dominant female with history of PAF on Eliquis, Stage IV adenocarcinoma of the lung, HTN, HLP and CKD presenting with left facial droop, dysarthria, LUE/LLE weakness. CT of the head unremarkable. Patient not a candidate for TNK due to Eliquis therapy #CVA - presumed right sided CVA resulting in left sided deficit. Patient with atrial fibrillation - reports compliance with her medications. Uncertain if patient has metastatic lesions to her brain. -Admit to medical with telemetry -NIHSS and Neuro checks per protocol -Maintain NPO status - patient with left facial droop and dysarthria -MRI ordered - patient and patient's daughter have declined this study. -Daughter does not wish to pursue vascular imaging - MRA -Check 2D echo with bubble study -Check HgbA1C and Lipid panel -ASA 81mg po daily -Crestor 10mg daily -PT/OT evaluation appreciated -Speech Therapy evaluation appreciated #Stage IV Adenocarcinoma of the Lung - patient with diffusely metastatic pulmonary adenocarcinoma. PET scan on 08/08/24 with diffuse pulmonary and skeletal metastases. Patient follows with Oncology and has an appointment next week to discuss management. Currently not on treatment. -MRI brain recommended but patient and daughter decline at this time -Oxycodone 2.5mg po q 4 hours as needed for pain or dyspnea -Ativan as needed for anxiety -Zofran as needed for nausea #Paroxysmal Atrial Fibrillation - patient presenting with CVA as above. She reports compliance with her medications. Elevated rate upon arrival, improved with Metoprolol 5mg IV -Metoprolol 5mg IV q 6 hours scheduled while NPO -Hold Eliquis for now in setting of presumed acute CVA #HFpEF - patient appears to be compensated -Holding Bumex for now while patient NPO -Monitor volume status #CKD - BUN=68, Cr=3.56 - slightly worse than baseline -Avoid nephrotoxic agents -Renal dosing where needed -Continue Calcitriol and NaHCO3 #HTN - blood pressure adequately controlled -Continue to monitor -Hold Isosorbide mononitrate to allow for permissive hypertension F/E/N - Gentle IVF - LR at 75mL/hr x 1L, electrolytes WNL, NPO for now pending formal Speech/Swallow evaluation Ppx - SCDs Code - DNR/DNI per discussion with patient and daughter Dispo- Admit to medical with telemetry History of Present Illness Chief Complaint: acute CVA Primary Care Provider: Lorene Patiño MD Martha Raygoza is a pleasant 84yo female with history of PAF on Eliquis anticoagulation, Stage IV adenocarcinoma of the lung, HFpEF, moderate to severe restrictive lung dysfunction presenting with presumed acute CVA. Patient lives at home alone and is fairly independent. She has family close by that check on her frequently as well as caretakers in the home. Patient reports walking to the bathroom this afternoon around 16:00. At 17:30 her flexographic printing machinist found her with left sided facial droop and slurred speech as well as weakness of the LUE, LLE. Daughter is at bedside and provides additional history. Patient reports "feeling off" today but otherwise denies fever, chills, chest pain, palpitations, cough, SOB, nausea, vomiting, diarrhea. 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 In the ER patient afebrile, atrial fibrillation with RVR ER Course: ASA 300mg IN Zofran 4mg IV Allergies Allergy/AdvReac Type Severity Reaction Status Date / Time adhesive AdvReac Intermediate skin tears Verified 09/07/24 13:52 Sulfa (Sulfonamide AdvReac Intermediate HEADACHE, Verified 09/07/24 13:52 Antibiotics) VERTIGO Home Medications Medication Instructions Recorded Confirmed Type sennosides 8.6 mg-docusate sodium 1 tab PO BID #60 tabs 08/19/22 09/27/24 Rx 50 mg tablet (Senokot-S) polyethylene glycol 3350 17 gram 17 g PO DAILY PRN Constipation 04/21/23 09/27/24 History oral powder packet (Miralax) Over Night Pulse OX #1 ea 05/23/23 09/27/24 Rx Oxygen Home #1 ea 05/23/23 09/27/24 Rx cyanocobalamin (vitamin B-12) 1,000 mcg PO QAM 08/30/23 09/27/24 History 1,000 mcg capsule melatonin 10 mg tablet 10 mg PO HS 08/30/23 09/27/24 History Lift Chair #1 ea 08/31/23 09/27/24 Rx metoprolol tartrate 25 mg tablet 12.5 mg (1/2 x 25 mg) PO BID #90 09/08/23 09/27/24 Rx tabs isosorbide mononitrate 60 mg 60 mg PO QAM 10/31/23 09/27/24 History tablet,extended release 24 hr ipratropium 0.5 mg-albuterol 3 mg 3 ml inhalation Q2H PRN shortness 01/10/24 09/27/24 Rx (2.5 mg base)/3 mL nebulization of breath or wheezing #180 mL soln calcitriol 0.5 mcg capsule 0.5 mcg PO 3XWK #45 caps 02/22/24 09/27/24 Rx apixaban 2.5 mg tablet (Eliquis) 2.5 mg PO BID #180 tabs 04/09/24 09/27/24 Rx amoxicillin 500 mg capsule 2,000 mg (4 x 500 mg) PO ONCE #4 05/23/24 09/27/24 Rx caps Symbicort 160 mcg-4.5 2 puff inhalation BID #10.2 grams 06/04/24 09/27/24 Rx mcg/actuation HFA aerosol inhaler (budesonide-formoterol) albuterol sulfate 90 mcg/actuation 2 puff inhalation Q6H PRN 07/30/24 09/27/24 Rx aerosol inhaler Shortness Of Breath Or Wheezing #18 grams sodium bicarbonate 650 mg tablet 650 mg PO BID #60 tabs 07/31/24 09/27/24 Rx trazodone 50 mg tablet 50 mg PO HS #90 tabs 08/22/24 09/27/24 Rx epoetin kole 40,000 unit/mL 40,000 unit subcut UD 09/17/24 09/27/24 History injection solution benzonatate 200 mg capsule 200 mg PO TID PRN cough #90 caps 09/20/24 09/27/24 Rx oxycodone-acetaminophen 5 mg-325 0.5 tab PO Q4H PRN pain,dyspnea 1 09/20/24 09/27/24 Rx mg tablet (Percocet) month #90 tabs bumetanide 2 mg tablet 2 mg PO QAM 09/27/24 09/27/24 History lorazepam 0.5 mg tablet See Rx Instructions PO TID PRN 09/27/24 09/27/24 Rx anxiety #60 tabs potassium chloride 20 mEq 20 meq PO QAM 09/27/24 09/27/24 History tablet,extended release Past Med/Surg History Problem List (Updated 09/28/24 @ 01:38 by Jazmín Gamboa DO) Heart failure Cerebrovascular accident (Acute) Cough Stage IV adenocarcinoma of lung Advanced care planning/counseling discussion Palliative care by specialist Dyspnea and respiratory abnormalities Cancer related pain Dyspnea History of basal cell cancer Metastatic adenocarcinoma Abnormal positron emission tomography (PET) scan Hypothyroidism (acquired) Acute on chronic diastolic CHF (congestive heart failure) recently hospitalized @[facility] on 04/21/23 Hyponatremia B12 deficiency Folate deficiency COPD (chronic obstructive pulmonary disease) Hearing loss (Acute) Cholesteatoma of ear (Acute) Transaminitis (Acute) Bilateral pleural effusion Chronic kidney disease, stage V no dialysis; f/u dr. tinsley Pressure ulcer of right leg, unstageable (Acute) Pressure ulcer of lower extremity, stage 3 Wound of right lower extremity Tracheomalacia Hypoxia Restrictive airway disease Encounter for pre-operative examination Multiple pulmonary nodules Chronic cough Hx of pulmonary embolus Vaginal atrophy (Acute) Urinary incontinence (Acute) Prolapse of vaginal wall with midline cystocele (Acute) Internal hemorrhoids (Acute) Hyperplastic colon polyp (Acute) Diverticulosis (Acute) Asthma-COPD overlap syndrome [employer]orer [employer] (current) use of anticoagulants (Chronic) Hypertension SVT (supraventricular tachycardia) Chronic mastoiditis of left side Tinnitus of right ear Anemia in CKD (chronic kidney disease) Acute on chronic renal failure Heart failure with preserved ejection fraction (Acute) Sleep disturbance Respiratory failure with hypoxia (Acute) Paroxysmal atrial fibrillation Mitral regurgitation Chronic anticoagulation Hypercholesteremia Mixed conductive and sensorineural hearing loss of left ear with restricted hearing of right ear hearing aid lt ear Sensorineural hearing loss (SNHL) of right ear with restricted hearing of left ear Anacusis of right ear Secondary hyperparathyroidism of renal origin Vitamin D deficiency Stage 5 chronic kidney disease not on chronic dialysis (Acute) Anxiety Recurrent UTI (Chronic) Medical History Pyoderma gangrenosum Hemorrhage from the ear Slow to wake up after anesthesia happened once time Hx of vertigo "none for quite some time, occurred when taking sulfa for her bladder problems" Acute respiratory failure with hypoxia hx-hospitalized 04/21/23 @[facility] Restrictive lung disease daily inh, inh and neb prn Atrial fibrillation with rapid ventricular response currently on eliquis; 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 H/O deep venous thrombosis 2019 Bilateral pulmonary embolism 2019, from DVT Surgical History H/O surgical biopsy 08/18/2023 non-healing lesion left cheek History of esophagogastroduodenoscopy (EGD) Hx of colonoscopy Hx of vein stripping Hx of hysterectomy Family History Mother Blood clot in vein Father Myocardial infarction Sister Blood clot in vein Breast cancer Aunt Blood clot in vein Son Prostate cancer Brother Esophageal cancer Brother FH: pancreatic cancer Denies family history of Ovarian cancer Colorectal cancer Social History Smoking Status: Never smoker Second Hand Exposure: No; Do You Dip or Chew Tobacco: No; Hx Alcohol Use: No Hx Substance Use: No Preferred Language: Upper Sorbian Communication Ability: Effective Communication Ability Comment: Patient is hard of hearing at this time and requires a white board. 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 How many Children do You have: 3 How many Children do You have Comment: Sons work close and assist pt with meals Feels Safe at Home: Yes Childhood Exposure to Second-Hand Smoke: Yes Diet: low salt caffeine: No Dental Care, Regularly: Yes Physical Activity Frequency: Does not Exercise Seatbelt Use: always Sunscreen Use: Yes Assistive Devices: Hearing Aid - Left, Oxygen - Continuous, Walker and Wheelchair Review of Systems Review of Systems: All systems reviewed & are unremarkable except as noted in HPI & below Physical Exam Physical Exam: General: patient resting comfortably, NAD, non-toxic in appearance, AA&O x 4 Skin: warm, dry, intact, no rashes or lesions HEENT: NC/AT, PERRL, anicteric sclera, right eye with conjunctival injection, external ear normal to inspection and nontender, nares patent, moist mucus membranes, dentition intact, no oropharyngeal lesions, neck supple, trachea midline, no LAD, no thyromegaly, no JVD Heart: +S1/S2, irregularly irregular, 3/6 JAIME Lungs: equal air entry bilaterally, no rales/rhonchi/wheezes Abd: +BS, soft, NT/ND, no masses/organomegaly/ascites Ext: warm, 2+ pulses in UE/LE bilaterally, no clubbing/cyanosis or edema Neuro: patient with left sided facial droop, speech delayed and dysarthric but appropriate word choice, tongue deviation to the left, baseline blindness in the left eye and deafness in the right ear, EOM difficult to assess, sensation intact to light touch in UE/LE bilaterally, MS 2/5 in LEFT hand, 4/5 in LEFT arm, 4+/5 in LEFT leg, 5/5 in RUE/RLE Results & Data Results & Data Vital Signs (Past 12 Hours) Vital Signs Temp Pulse Resp BP Pulse Ox O2 Del Method O2 Flow Rate 09/27/24 20:45 130 H 09/27/24 20:31 36.7 C 116 H 20 134/82 94 Nasal Cannula 2 Laboratory Results Laboratory Results WBC 6.92 K/ul (4.8-10.8) 09/27/24 20:32 RBC 3.13 M/uL (4.20-5.40) L 09/27/24 20:32 Hgb 9.4 g/dl (12.0-16.0) L 09/27/24 20:32 Hct 30.5 % (37.0-47.0) L 09/27/24 20:32 MCV 97.4 fL (80.0-100.0) 09/27/24 20:32 MCH 30.0 pg (25.0-34.0) 09/27/24 20:32 MCHC 30.8 g/dL (32.0-36.0) L 09/27/24 20:32 RDW Std Deviation 51.8 fL (36.4-46.3) H 09/27/24 20:32 RDW Coeff of Alice 15.9 % (11.5-14.5) H 09/27/24 20:32 Plt Count 182 K/uL (130-400) 09/27/24: MPV 9.7 fL (9.4-12.4) 09/27/24 20:32 Immature Gran % (Auto) 0.4 % 09/27/24: Neut % (Auto) 70.4 % 09/27/24: Lymph % (Auto) 15.3 % 09/27/24:32 Ritchie % (Auto) 9.2 % 09/27/24 20:32 Eos % (Auto) 4.3 % 09/27/24:32 Baso % (Auto) 0.4 % 09/27/24: Neut # (Auto) 4.86 K/uL (1.40-6.50) 09/27/24 20: Lymph # (Auto) 1.06 K/uL (1.20-3.40) L 09/27/24 20: Ritchie # (Auto) 0.64 K/uL (0.11-0.59) H 09/27/24 20:32 Eos # (Auto) 0.30 K/uL (0.00-0.50) 09/27/24: Baso # (Auto) 0.03 K/uL (0.00-0.20) 09/27/24: Immature Gran # (Auto) 0.03 K/uL (0.01-0.20) 09/27/24: PT 12.0 Seconds (9.0-12.0) 09/27/24: INR 1.1 (0.9-1.1) 09/27/24 20:32 APTT 30 Seconds (21-31) 09/27/24: PTT Ratio 1.1 09/27/24:32 Sodium 138 mmol/L (136-145) 09/27/24: Potassium 3.8 mmol/L (3.5-5.1) 09/27/24 20:32 Chloride 109 mmol/L (98-107) H 09/27/24 20:32 Carbon Dioxide 21 mmol/L (21-32) 09/27/24 20:32 Anion Gap 8 (3-11) 09/27/24 20:32 BUN 68 mg/dl (6-23) H 09/27/24 20:32 Creatinine 3.56 mg/dl (0.6-1.2) H 09/27/24 20:32 Est Cr Clr Drug Dosing 10.5 ml/min 09/27/24 20:32 eGFR 12.26 09/27/24 20:32 BUN/Creatinine Ratio 19.1 (10-20) 09/27/24 20:32 Glucose 100 mg/dl (70-99(Fasting)) H 09/27/24 20:32 Calcium 9.4 mg/dl (8.6-10.3) 09/27/24 20:32 Magnesium 2.0 mg/dl (1.7-2.4) 09/27/24 20:32 Total Bilirubin 0.5 mg/dl (0.2-1.0) 09/27/24 20:32 AST 12 U/L (13-39) L 09/27/24 20:32 ALT 11 U/L (7-52) 09/27/24 20:32 Alkaline Phosphatase 86 U/L (34-104) 09/27/24 20:32 Troponin I High Sens 95.4 pg/ml (0-14) H* D 09/27/24 22:41 Total Protein 7.3 gm/dl (6.0-8.3) 09/27/24 20:32 Albumin 3.8 gm/dl (3.4-5.0) 09/27/24 20:32 Globulin 3.5 gm/dl (2.5-4.0) 09/27/24 20:32 Albumin/Globulin Ratio 1.1 (0.9-2) 09/27/24 20:32 Blood Type A Positive 09/27/24 20:32 Antibody Screen NEGATIVE 09/27/24 20:32 Impressions Chest X-Ray 09/27/24 20:30 Exam(s): XR CXR 1 VIEW EXAM: XR Chest, 1 View CLINICAL HISTORY: Reason for exam: neuro deficit, acute stroke suspected. TECHNIQUE: Frontal view of the chest. COMPARISON: Chest x-ray 09/13/2024 FINDINGS: Lungs: Multifocal interstitial and airspace opacities which has progressed at the left base. Pleural space: Bilateral pleural effusions. Heart: Unremarkable. No cardiomegaly. IMPRESSION: 1. Multifocal interstitial and airspace opacities which has progressed at the left base. 2. Bilateral pleural effusions. Electronically signed by: Raheem Steve MD 09/27/24 21:[address] 09/27/24 20:30 CR Exam(s): CT HEAD Without Contrast EXAM: CT Head Without Intravenous Contrast CLINICAL HISTORY: Reason for exam: neuro deficit, acute stroke suspected. TECHNIQUE: Axial computed tomography images of the head/brain without intravenous contrast. CTDI is 64.12 mGy and DLP is 962.98 mGy-cm. Automated exposure control was utilized for the study. A dose lowering technique was utilized adhering to the principles of ALARA. COMPARISON: No relevant prior studies available. FINDINGS: Artifacts: Images are degraded by motion artifact. Brain: No intracranial hemorrhage, mass-effect, or cerebral edema. Global parenchymal atrophy. Ventricles: Unremarkable. Bones/joints: Unremarkable. No fracture. Soft tissues: Unremarkable. Sinuses: No acute sinusitis. Mastoid air cells: Unremarkable as visualized. IMPRESSION: 1. No acute intracranial abnormality. Consider MRI if there is persistent concern. Communications: Call Doctor Stroke Electronically signed by: Raheem Steve MD 09/27/24 20:51 PM PG Care Time/CCT Total # of Minutes Spent Total Time Spent with Patient: Total time spent is greater than 50% in coordination of care (as documented) at patient's floor/unit and/or counseling patient: Coding Level of Care Code 50520 INT INP/OBS CARE 3/75MIN Diagnoses Cerebrovascular accident I63.9 Stage IV adenocarcinoma of lung C34.90 Paroxysmal atrial fibrillation I48.0 Heart failure I50.9 Chronic kidney disease, stage V N18.5 Hypertension I10
[2024-09-27] MEDS: ONDANSETRON INJ 2 MG/ML 2 ML VIAL IV PRN (21:45)
[2024-09-27] MEDS: ASPIRIN 300 MG SUPP PR ONE (21:51)
--- NOTE | 2024-09-27 21:51 | Emergency Department Note ---
History of Present Illness General Chief complaint: Stroke Alert Stated complaint: Stroke Alert Time Seen by Provider: 09/27/24 20:29 History of Present Illness Provider complaint: Stroke symptoms 84-year-old female presents emergency department with strokelike symptoms. Patient is on Eliquis. EMS reports that at 1730 the patient started having slurred speech and left-sided weakness as well as facial droop. No falls or traumas. Home Medications Medication Instructions Recorded Confirmed Type sennosides 8.6 mg-docusate sodium 1 tab PO BID #60 tabs 08/19/22 09/07/24 Rx 50 mg tablet (Senokot-S) polyethylene glycol 3350 17 gram 17 g PO DAILY PRN Constipation 04/21/23 09/07/24 History oral powder packet (Miralax) Over Night Pulse OX #1 ea 05/23/23 09/07/24 Rx Oxygen Home #1 ea 05/23/23 09/07/24 Rx cyanocobalamin (vitamin B-12) 1,000 mcg PO QAM 08/30/23 09/27/24 History 1,000 mcg capsule melatonin 10 mg tablet 10 mg PO HS 08/30/23 09/27/24 History Lift Chair #1 ea 08/31/23 09/07/24 Rx metoprolol tartrate 25 mg tablet 12.5 mg (1/2 x 25 mg) PO BID #90 09/08/23 09/27/24 Rx tabs isosorbide mononitrate 60 mg 60 mg PO QAM 10/31/23 09/27/24 History tablet,extended release 24 hr ipratropium 0.5 mg-albuterol 3 mg 3 ml inhalation Q2H PRN shortness 01/10/24 09/27/24 Rx (2.5 mg base)/3 mL nebulization of breath or wheezing #180 mL soln calcitriol 0.5 mcg capsule 0.5 mcg PO 3XWK #45 caps 02/22/24 09/27/24 Rx potassium chloride 20 mEq 20 meq PO DAILY #30 tabs 03/23/24 09/07/24 Rx tablet,extended release apixaban 2.5 mg tablet (Eliquis) 2.5 mg PO BID #180 tabs 04/09/24 09/27/24 Rx amoxicillin 500 mg capsule 2,000 mg (4 x 500 mg) PO ONCE #4 05/23/24 09/27/24 Rx caps Symbicort 160 mcg-4.5 2 puff inhalation BID #10.2 grams 06/04/24 09/07/24 Rx mcg/actuation HFA aerosol inhaler (budesonide-formoterol) albuterol sulfate 90 mcg/actuation 2 puff inhalation Q6H PRN 07/30/24 09/27/24 Rx aerosol inhaler Shortness Of Breath Or Wheezing #18 grams bumetanide 2 mg tablet 2 mg PO BID #60 tabs 07/31/24 09/27/24 Rx sodium bicarbonate 650 mg tablet 650 mg PO BID #60 tabs 07/31/24 09/07/24 Rx mupirocin 2 % topical ointment 1 applic topical BID #15 grams 08/09/24 09/07/24 Rx trazodone 50 mg tablet 50 mg PO HS #90 tabs 08/22/24 09/07/24 Rx epoetin kole 40,000 unit/mL 40,000 unit subcut UD 09/17/24 09/27/24 History injection solution benzonatate 200 mg capsule 200 mg PO TID PRN cough #90 caps 09/20/24 09/27/24 Rx oxycodone-acetaminophen 5 mg-325 0.5 tab PO Q4H PRN pain,dyspnea 1 09/20/24 09/20/24 Rx mg tablet (Percocet) month #90 tabs lorazepam 0.5 mg tablet See Rx Instructions PO TID PRN 09/27/24 09/27/24 Rx anxiety #60 tabs Allergies Allergy/AdvReac Type Severity Reaction Status Date / Time adhesive AdvReac Intermediate skin tears Verified 09/07/24 13:52 Sulfa (Sulfonamide AdvReac Intermediate HEADACHE, Verified 09/07/24 13:52 Antibiotics) VERTIGO Past Med/Surg History Problem List (Updated 09/27/24 @ 21:54 by Mandeep Dodd MD) Cerebrovascular accident (Acute) Cough Stage IV adenocarcinoma of lung Advanced care planning/counseling discussion Palliative care by specialist Dyspnea and respiratory abnormalities Cancer related pain Dyspnea History of basal cell cancer Metastatic adenocarcinoma Abnormal positron emission tomography (PET) scan Hypothyroidism (acquired) Acute on chronic diastolic CHF (congestive heart failure) recently hospitalized @[facility] on 04/21/23 Hyponatremia B12 deficiency Folate deficiency COPD (chronic obstructive pulmonary disease) Hearing loss (Acute) Cholesteatoma of ear (Acute) Transaminitis (Acute) Bilateral pleural effusion Chronic kidney disease, stage V no dialysis; f/u dr. tinsley Pressure ulcer of right leg, unstageable (Acute) Pressure ulcer of lower extremity, stage 3 Wound of right lower extremity Tracheomalacia Hypoxia Restrictive airway disease Encounter for pre-operative examination Multiple pulmonary nodules Chronic cough Hx of pulmonary embolus Vaginal atrophy (Acute) Urinary incontinence (Acute) Prolapse of vaginal wall with midline cystocele (Acute) Internal hemorrhoids (Acute) Hyperplastic colon polyp (Acute) Diverticulosis (Acute) Asthma-COPD overlap syndrome alf (current) use of anticoagulants (Chronic) Hypertension SVT (supraventricular tachycardia) Chronic mastoiditis of left side Tinnitus of right ear Anemia in CKD (chronic kidney disease) Acute on chronic renal failure Heart failure with preserved ejection fraction (Acute) Sleep disturbance Respiratory failure with hypoxia (Acute) Paroxysmal atrial fibrillation Mitral regurgitation Chronic anticoagulation Hypercholesteremia Mixed conductive and sensorineural hearing loss of left ear with restricted hearing of right ear hearing aid lt ear Sensorineural hearing loss (SNHL) of right ear with restricted hearing of left ear Anacusis of right ear Secondary hyperparathyroidism of renal origin Vitamin D deficiency Stage 5 chronic kidney disease not on chronic dialysis (Acute) Anxiety Recurrent UTI (Chronic) Medical History Pyoderma gangrenosum Hemorrhage from the ear Slow to wake up after anesthesia happened once time Hx of vertigo "none for quite some time, occurred when taking sulfa for her bladder problems" Acute respiratory failure with hypoxia hx-hospitalized 04/21/23 @[facility] Restrictive lung disease daily inh, inh and neb prn Atrial fibrillation with rapid ventricular response currently on eliquis; f/u dr[place] 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 H/O deep venous thrombosis 2019 Bilateral pulmonary embolism 2019, from DVT Surgical History H/O surgical biopsy 08/18/2023 non-healing lesion left cheek History of esophagogastroduodenoscopy (EGD) Hx of colonoscopy Hx of vein stripping Hx of hysterectomy Family History Mother Blood clot in vein Father Myocardial infarction Sister Blood clot in vein Breast cancer Aunt Blood clot in vein Son Prostate cancer Brother Esophageal cancer Brother FH: pancreatic cancer Denies family history of Ovarian cancer Colorectal cancer Social History Smoking Status: Never smoker Second Hand Exposure: No; Do You Dip or Chew Tobacco: No; Hx Alcohol Use: No Hx Substance Use: No Preferred Language: Frisian Communication Ability: Effective Communication Ability Comment: Patient is hard of hearing at this time and requires a white board. 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 How many Children do You have: 3 How many Children do You have Comment: Sons work close and assist pt with meals Feels Safe at Home: Yes Childhood Exposure to Second-Hand Smoke: Yes Diet: low salt caffeine: No Dental Care, Regularly: Yes Physical Activity Frequency: Does not Exercise Seatbelt Use: always Sunscreen Use: Yes Assistive Devices: Hearing Aid - Left, Oxygen - Continuous, Walker and Wheelchair Physical Exam Vital Signs Vital Signs - 24 hr 09/27/24 20:31 09/27/24 20:45 Temperature 36.7 C Temperature Source Oral Pulse Rate 116 H 130 H Pulse Rhythm Irregular Pulse Strength Normal Respiratory Rate 20 Respiratory Effort / Characteristics Non-Labored Spontaneous Respiratory Depth Normal Respiratory Pattern Regular Blood Pressure 134/82 Blood Pressure Mean 99 Blood Pressure Position Sitting Pulse Oximetry 94 Oxygen Delivery Method Nasal Cannula Oxygen Flow Rate 2 Sepsis Recent Fever Within 48 Hours No Sepsis New/Unexplained Change in Mental Status N/A Sepsis Action Taken by Nursing No Action Required Physical Exam NECK: Normal range of motion. Neck supple. CV: Normal rate, regular rhythm, normal heart sounds and intact distal pulses. There is no peripheral edema. Palpable radial pulses bue. PULM/CHEST: Effort normal and breath sounds normal. No respiratory distress. No stridor. She has no wheezes. She has no rales. MUSC/SKEL: Left upper extremity AV fistula. NEURO: NIHSS 13 (3:2, 4:2, 5a:2, 6a:3,7:210:1,11:1) Course Course 2028: The patient was evaluated in room A1. A complete history and physical exam was performed Cardiac monitoring: An order was placed for continuous cardiac monitoring. The monitor shows a rate of 110 with atrial fibrilation rhythm interpreted by me Patient reports she took her Eliquis this morning. Patient is not a candidate for TNKase given she took her Eliquis this morning. Patient has a history of CKD and a left AV fistula present. Will hold off on using contrast for angios as the patient is not a candidate for TNK we do not want to make her kidney function any worse. No code stroke called. 2039: CT of the head viewed by me shows no ICH. 2049: Vital signs stable. Discussed with daughter that the patient had a stroke but she is not a TNK candidate secondary to her being on Eliquis. Also discussed with her that we not inject contrast which she states she was thankful for the patient has history of CKD but has not required dialysis yet. [facility] Aspirin per rectum will be ordered for the patient. Administered Medications Ondansetron HCl (Ondansetron Inj 2 Mg/Ml 2 Ml Vial) 4 mg IV Q6H PRN PRN Reason: Nausea And Vomiting Stop: 10/27/24 21:33 Last Admin: 09/27/24 21:45 Dose: 4 mg Documented By: CARL Medical Decision Making Laboratory Data Attestation: I reviewed the patient's lab results. 09/27/24 20:32 09/27/24 20:32 Lab Results 09/27/24 Range/Units 20:32 WBC 6.92 (4.8-10.8) K/ul RBC 3.13 L (4.20-5.40) M/uL Hgb 9.4 L (12.0-16.0) g/dl Hct 30.5 L (37.0-47.0) % MCV 97.4 (80.0-100.0) fL MCH 30.0 (25.0-34.0) pg MCHC 30.8 L (32.0-36.0) g/dL RDW Std Deviation 51.8 H (36.4-46.3) fL RDW Coeff of Alice 15.9 H (11.5-14.5) % Plt Count 182 (130-400) K/uL MPV 9.7 (9.4-12.4) fL Immature Gran % (Auto) 0.4 % Neut % (Auto) 70.4 % Lymph % (Auto) 15.3 % Irwin % (Auto) 9.2 % Eos % (Auto) 4.3 % Baso % (Auto) 0.4 % Neut # (Auto) 4.86 (1.40-6.50) K/uL Lymph # (Auto) 1.06 L (1.20-3.40) K/uL Irwin # (Auto) 0.64 H (0.11-0.59) K/uL Eos # (Auto) 0.30 (0.00-0.50) K/uL Baso # (Auto) 0.03 (0.00-0.20) K/uL Immature Gran # (Auto) 0.03 (0.01-0.20) K/uL PT 12.0 (9.0-12.0) Seconds INR 1.1 (0.9-1.1) APTT 30 (21-31) Seconds PTT Ratio 1.1 Sodium 138 (136-145) mmol/L Potassium 3.8 (3.5-5.1) mmol/L Chloride 109 H (98-107) mmol/L Carbon Dioxide 21 (21-32) mmol/L Anion Gap 8 (3-11) BUN 68 H (6-23) mg/dl Creatinine 3.56 H (0.6-1.2) mg/dl Est Cr Clr Drug Dosing 10.5 ml/min eGFR 12.26 BUN/Creatinine Ratio 19.1 (10-20) Glucose 100 H (70-99(Fasting)) mg/dl Calcium 9.4 (8.6-10.3) mg/dl Magnesium 2.0 (1.7-2.4) mg/dl Total Bilirubin 0.5 (0.2-1.0) mg/dl AST 12 L (13-39) U/L ALT 11 (7-52) U/L Alkaline Phosphatase 86 (34-104) U/L Troponin I High Sens 105.7 H* (0-14) pg/ml Total Protein 7.3 (6.0-8.3) gm/dl Albumin 3.8 (3.4-5.0) gm/dl Globulin 3.5 (2.5-4.0) gm/dl Albumin/Globulin Ratio 1.1 (0.9-2) Blood Type A Positive Antibody Screen NEGATIVE Imaging Data Attestation: I personally reviewed and interpreted this imaging study as follows: My Impression: CT head: No ICH Radiologist's Impression: Chest X-Ray 09/27/24 20:30 Exam(s): XR CXR 1 VIEW EXAM: XR Chest, 1 View CLINICAL HISTORY: Reason for exam: neuro deficit, acute stroke suspected. TECHNIQUE: Frontal view of the chest. COMPARISON: Chest x-ray 09/13/2024 FINDINGS: Lungs: Multifocal interstitial and airspace opacities which has progressed at the left base. Pleural space: Bilateral pleural effusions. Heart: Unremarkable. No cardiomegaly. IMPRESSION: 1. Multifocal interstitial and airspace opacities which has progressed at the left base. 2. Bilateral pleural effusions. Electronically signed by: Raheem Steve MD 09/27/24 21:[address] 09/27/24 20:30 CR Exam(s): CT HEAD Without Contrast EXAM: CT Head Without Intravenous Contrast CLINICAL HISTORY: Reason for exam: neuro deficit, acute stroke suspected. TECHNIQUE: Axial computed tomography images of the head/brain without intravenous contrast. CTDI is 64.12 mGy and DLP is 962.98 mGy-cm. Automated exposure control was utilized for the study. A dose lowering technique was utilized adhering to the principles of ALARA. COMPARISON: No relevant prior studies available. FINDINGS: Artifacts: Images are degraded by motion artifact. Brain: No intracranial hemorrhage, mass-effect, or cerebral edema. Global parenchymal atrophy. Ventricles: Unremarkable. Bones/joints: Unremarkable. No fracture. Soft tissues: Unremarkable. Sinuses: No acute sinusitis. Mastoid air cells: Unremarkable as visualized. IMPRESSION: 1. No acute intracranial abnormality. Consider MRI if there is persistent concern. Communications: Call Doctor Stroke Electronically signed by: Raheem Steve MD 09/27/24 20:51 PM ECG Data Attestation: I personally reviewed and interpreted this ECG as follows: Rate (beats per minute): 125 Rhythm: + atrial fibrillation ECG Intervals/blocks: + Normal QT-c ECG ST segments: + Normal ST segments Additional Comments: QRS 72 MDM Narrative 2028: The patient was evaluated in room A1. A complete history and physical exam was performed Cardiac monitoring: An order was placed for continuous cardiac monitoring. The monitor shows a rate of 110 with atrial fibrilation rhythm interpreted by me Patient reports she took her Eliquis this morning. Patient is not a candidate for TNKase given she took her Eliquis this morning. Patient has a history of CKD and a left AV fistula present. Will hold off on using contrast for angios as the patient is not a candidate for TNK we do not want to make her kidney function any worse. No code stroke called. 2039: CT of the head viewed by me shows no ICH. 2049: Vital signs stable. Discussed with daughter that the patient had a stroke but she is not a TNK candidate secondary to her being on Eliquis. Also discussed with her that we not inject contrast which she states she was thankful for the patient has history of CKD but has not required dialysis yet. [facility]. Aspirin per rectum will be ordered for the patient. Impression & Plan Cerebrovascular accident Discharge Plan Visit Data Chief Complaint: Stroke Alert Stated Complaint: Stroke Alert ED Provider: Mandeep Dodd Discharge Problem: Cerebrovascular accident Patient Disposition: Admitted As Inpatient Forms Stand Alone Forms: [facility] Prescriptions Prescriptions: No Action (DME) Lift Chair Misc See Rx Instructions .Route Qty: 1 0RF Rx Instructions: Mechanical Lift Chair metoprolol tartrate 25 mg tablet 12.5 mg PO BID Qty: 90 3RF calcitriol 0.5 mcg capsule 0.5 mcg PO 3XWK Qty: 45 3RF Rx Instructions: TAKE MON, WED, & FRI. IN THE HS. potassium chloride 20 mEq tablet extended release 20 meq PO DAILY Qty: 30 2RF Eliquis 2.5 mg tablet 2.5 mg PO BID Qty: 180 3RF Hold Instructions: Resume on 12/15/23. until cleared by PCP Symbicort 160-4.5 mcg/actuation HFA aerosol inhaler 2 puff INH BID Qty: 10.2 8RF mupirocin 2 % ointment 1 applic topical BID Qty: 15 0RF trazodone 50 mg tablet 50 mg PO HS Qty: 90 0RF epoetin kole 40,000 unit/mL solution 40,000 unit subcut UD Rx Instructions: Hold for Hgb 10 or greater due receives from DR NAZAREEN EVERY 2 WEEKS lorazepam 0.5 mg tablet See Rx Instructions PO TID PRN (Reason: anxiety) Qty: 60 0RF Rx Instructions: half to one tab by mouth ever 6hr for anxiety, panic, insomnia orally three times a day PRN; (DME) Oxygen Home Liters Per Minute See Rx Instructions .MEDSUPPLY Qty: 1 0RF Rx Instructions: Home Oxygen concentrator with portability, test for conserving device. 0 via n/c at rest and 4LPM via n/c with exertion and sleep; KYLAH 99. (DME) Over Night Pulse OX Misc See Rx Instructions .MEDSUPPLY Qty: 1 0RF Rx Instructions: As directed ipratropium-albuterol 0.5 mg-3 mg(2.5 mg base)/3 mL solution for nebulization 3 ml inhalation Q2H PRN (Reason: shortness of breath or wheezing) Qty: 180 3RF Epogen 10,000 unit/mL solution 40,000 unit subcut .Q2W Qty: 1 0RF amoxicillin 500 mg capsule 2,000 mg PO ONCE Qty: 4 1RF Rx Instructions: prior to dental procedure albuterol sulfate 90 mcg/actuation HFA aerosol inhaler 2 puff INH Q6H PRN (Reason: Shortness Of Breath Or Wheezing) Qty: 18 4RF oxycodone-acetaminophen [Percocet] 5-325 mg tablet 0.5 tab PO Q4H PRN (Reason: pain,dyspnea) 30 Days Qty: 90 0RF benzonatate 200 mg capsule 200 mg PO TID PRN (Reason: cough) Qty: 90 3RF Procrit 40,000 unit/mL solution 40,000 unit subcut ONCE Qty: 1 0RF bumetanide 2 mg tablet 2 mg PO BID Qty: 60 3RF sodium bicarbonate 650 mg tablet 650 mg PO BID Qty: 60 3RF sennosides-docusate sodium [Senokot-S] 8.6-50 mg Tablet 1 tab PO BID Qty: 60 0RF polyethylene glycol 3350 [Miralax] 17 gram powder in packet 17 g PO DAILY PRN (Reason: Constipation) isosorbide mononitrate 60 mg Tablet Extended Release 24 Hr 60 mg PO QAM cyanocobalamin (vitamin B-12) 1,000 mcg capsule 1,000 mcg PO QAM melatonin 10 mg Tablet 10 mg PO HS Referrals Referrals: Lorene Patiño MD [Primary Care Provider] -
[2024-09-27] MEDS ORDERED: ALBUTEROL HFA 8 GM INHALER INH PRN (23:27)
[2024-09-27] MEDS ORDERED: LORazepam 0.5 MG TAB PO PRN (23:27)
[2024-09-27] MEDS ORDERED: PHARMACIST DISCHARGE MED REC CONSULT PRN (23:27)
[2024-09-27] MEDS ORDERED: ONDANSETRON INJ 2 MG/ML 2 ML VIAL IV PRN (23:27)
[2024-09-27] MEDS ORDERED: ALBUT/IPRATROP 3MG/0.5MG NEB 3 ML VIAL INH PRN (23:27)
[2024-09-27] MEDS ORDERED: MELATONIN 3 MG TAB PO PRN (23:34)
[2024-09-27] MEDS ORDERED: oxyCODONE/ACETAMINOPHEN 5mg/325mg TAB PO PRN (23:47)
[2024-09-27] MEDS: METOPROLOL TARTRATE 25 MG TAB PO STA (23:56)
[2024-09-28] MEDS: METOPROLOL TARTRATE 1 MG/ML VIAL IV SCH (00:31)
[2024-09-28] MEDS ORDERED: LORazepam 0.5 MG TAB PO PRN (01:55)
[2024-09-28] MEDS: METOPROLOL TARTRATE 1 MG/ML VIAL IV STA ×2 (02:00→09:40)
[2024-09-28] MEDS: LACTATED RINGER'S 1,000 ML IV SCH (02:18)
[2024-09-28] MEDS: ACETAMINOPHEN 1,000 MG/100 ML VIAL IV PRN (03:06)
[2024-09-28] MEDS: PROCHLORPERAZINE 5 MG in SYRINGE 4 ML IV ONE (03:15)
[2024-09-28] MEDS: LORazepam 2 MG/1 ML VIAL IV STA ×2 (05:41→10:38)
[2024-09-28 06:23] LABS: Basophils # (auto) 0.03 K/uL (0.00-0.20); Basophils % (auto) 0.4 %; Eosinophils # (auto) 0.05 K/uL (0.00-0.50); Eosinophils % (auto) 0.7 %; Hematocrit (blood only) 29.7 % (37.0-47.0); Hemoglobin 9.3 g/dl (12.0-16.0); Immature Granulocytes # (auto) 0.03 K/uL (0.01-0.20); Immature Granulocytes % (auto) 0.4 %; Lymphocytes # (auto) 0.95 K/uL (1.20-3.40); Lymphocytes % (auto) 13.4 %; Mean Corpuscular Hemoglobin 30.3 pg (25.0-34.0); Mean Corpuscular Hgb Conc 31.3 g/dL (32.0-36.0); Mean Corpuscular Volume 96.7 fL (80.0-100.0); Mean Platelet Volume 9.6 fL (9.4-12.4); Monocytes # (auto) 0.37 K/uL (0.11-0.59); Monocytes % (auto) 5.2 %; Neutrophils # (auto) 5.66 K/uL (1.40-6.50); Neutrophils % (auto) 79.9 %; Platelet Count 199 K/uL (130-400); RDW Coefficient of Variation 15.9 % (11.5-14.5); RDW Standard Deviation 52.3 fL (36.4-46.3); Red Blood Count 3.07 M/uL (4.20-5.40); White Blood Count 7.09 K/ul (4.8-10.8)
[2024-09-28 06:33] LABS: BUN Creatinine Ratio 18.9 (10-20); Calcium 9.1 mg/dl (8.6-10.3); Creatinine Clr Calc Pharmacy 10.6 ml/min; Potassium 4.1 mmol/L (3.5-5.1)
[2024-09-28 07:17] LABS: Estimated Average Glucose 111 mg/dl; Hemoglobin A1C 5.5 % (4.5-5.6)
--- NOTE | 2024-09-28 07:25 | Electrocardiogram Report ---
Test Reason : Blood Pressure : */* mmHG Vent. Rate : 125 BPM Atrial Rate : * BPM P-R Int : * ms QRS Dur : 72 ms QT Int : 252 ms P-R-T Axes : * 59 151 degrees QTcB Int : 363 ms Atrial fibrillation with rapid ventricular response Low voltage QRS Diffuse Nonspecific T wave abnormality Abnormal ECG When compared with ECG of 06-Dec-2023 16:55, Atrial fibrillation has replaced Sinus rhythm Vent. rate has increased by 57 bpm Confirmed by Danny Hinds ([id number]) on 09/28/2024 7:25:35 AM Referred By: REFERRED SELF Confirmed By: Danny Hinds
[2024-09-28] MEDS: ASPIRIN 81 MG ECTAB PO SCH (08:09)
[2024-09-28] MEDS: METOPROLOL TARTRATE 25 MG TAB PO SCH (08:10)
[2024-09-28] MEDS: SODIUM BICARBONATE 650 MG TAB PO SCH (08:10)
[2024-09-28] MEDS: ROSUVASTATIN CALCIUM 10 MG TAB PO SCH (08:10)
[2024-09-28] MEDS: POTASSIUM CHLORIDE CRTAB 20 MEQ TABCR PO SCH (08:10)
[2024-09-28] MEDS ORDERED: 0.2 MICRON FILTER SET 1 EACH IV ONE (08:33)
[2024-09-28] MEDS ORDERED: STAT IV Infusion **Titration per Protocol STA (08:34)
[2024-09-28] MEDS ORDERED: AMIODARONE IV BOLUS & DRIP IV STA (08:34)
[2024-09-28] MEDS ORDERED: 0.2 MICRON FILTER SET 1 EACH IV STA (08:34)
[2024-09-28] MEDS ORDERED: BUMETANIDE 1 MG TAB PO SCH (09:00)
--- NOTE | 2024-09-28 09:01 | XRay Report ---
XR chest 1V portable CLINICAL HISTORY: dyspnea COMPARISON STUDY: 09/27/2024 FINDINGS: Stable cardiomegaly with pulmonary vascular congestion consistent with CHF. Stable bilatera l pleural effusions and associated lung base consolidation, left greater than right. Stable oval mass like opacity at the right mid lung. Stable scattered small nodular densities in both lungs. No pneumo thorax. IMPRESSION: Stable exam. ACT 112: Negative or not required by law. Electronically signed by: Abilio [facility] M.D. 09/28/2024 9:00 AM
[2024-09-28] MEDS: BUMETANIDE 2 MG in SYRINGE 0 ML IV ONE (09:14)
[2024-09-28] MEDS: FLUTICASONE/VILANTEROL 100/25MCG 14 PUFFS/INHALER INH SCH (09:16)
--- NOTE | 2024-09-28 09:17 | XCELERA ---
[id number] [email or web address]\[id number]
[2024-09-28] MEDS: AMIODARONE / D5W 150 MG/100 ML BAG IV STA ×2 (09:33→10:35)
[2024-09-28] MEDS: AMIODARONE / D5W 360 MG/200 ML BAG IV ONE (09:51)
[2024-09-28 10:17] VITALS: BP 140/83; PULSE 142; RESP 12; TEMP 96.6; O2SAT 94
[2024-09-28] MEDS ORDERED: GLYCOPYRROLATE 0.2 MG/ML VIAL IV PRN (10:30)
[2024-09-28] MEDS ORDERED: HALOPERIDOL ORAL SOLN 2 MG/ML PO PRN (10:30)
--- NOTE | 2024-09-28 10:35 | Palliative Care Consultation ---
Date of Consultation September 28, 2024 Assessment & Plan (1) Dyspnea and respiratory abnormalities: (2) Altered mental status: (3) Discussion about advance care planning held with family member: A 30min face to face ACP was held at bedside with son and dtr in alw and then a 15min ACP telephonically held with dtr/ALMA ROSA Serrano I saw Martha Raygoza/met with bedside son and Dtr in law & called dtr Maggie the RN. Agreement for SURVEILLANCE OPERATOR, i have stopped all non SURVEILLANCE OPERATOR interventions, dc monitors, dc Lopressor, amiodarone, etc. I have modified SURVEILLANCE OPERATOR orders and added additional MS for severe / terminal air hunger. I am composition roll maker and cutter this weekend if you need me and can adjust orders from home but I am not in the building. 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 Thank you for allowing us to participate in the ongoing care of this patient. Please page with any additional concerns. Opal Bedoya DNP Director, Palliative Medicine History of Present Illness Reason for Consultation: On 09/28/24 @ 10:29 Deana Tim Wrote To Massiel Bedoya. right sided CVA. dyspnea. a fib with rvr Attending Physician: Emily Sykes MD History of Present Illness Martha is an 84yo female with Stage IV lung adenocarcinoma. She is an established [facility] patient PMH: DVT/PE diagnosed 05/2019 on warfarin, GERD, seasonal allergies She presented to [facility] ED with AMS, new stroke: left facial droop, dysarthria, LUE/LLE weakness. CT of the head unremarkable. She was not a candidate for TNK due to Eliquis therapy. MRI and escalated work up declined. She remains obtunded. 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 No exposure to chemicals or fumes. +Significant secondhand smoke exposure Positive family history of asthma in grandchild. No personal history of asthma. Family history is positive for breast cancer in sister. No personal or family history of any lung cancer. CT chest 07/29/2024: Multiple pulmonary nodules appreciated bilaterally Largest 1 in the right upper lobe spiculated adjacent to the pleura Multiple nodules in the left upper lobe lingula as well as left lower lobe Small right-sided pleural effusion Significant mediastinal lymphadenopathy FINAL DIAGNOSIS Bone, right iliac, biopsy: Metastatic carcinoma consistent with pulmonary adenocarcinoma at 1504. Allergies Allergy/AdvReac Type Severity Reaction Status Date / Time adhesive AdvReac Intermediate skin tears Verified 09/07/24 13:52 Sulfa (Sulfonamide AdvReac Intermediate HEADACHE, Verified 09/07/24 13:52 Antibiotics) VERTIGO Home Medications Medication Instructions Recorded Confirmed Type sennosides 8.6 mg-docusate sodium 1 tab PO BID #60 tabs 08/19/22 09/27/24 Rx 50 mg tablet (Senokot-S) polyethylene glycol 3350 17 gram 17 g PO DAILY PRN Constipation 04/21/23 09/27/24 History oral powder packet (Miralax) Over Night Pulse OX #1 ea 05/23/23 09/27/24 Rx Oxygen Home #1 ea 05/23/23 09/27/24 Rx cyanocobalamin (vitamin B-12) 1,000 mcg PO QAM 08/30/23 09/27/24 History 1,000 mcg capsule melatonin 10 mg tablet 10 mg PO HS 08/30/23 09/27/24 History Lift Chair #1 ea 08/31/23 09/27/24 Rx metoprolol tartrate 25 mg tablet 12.5 mg (1/2 x 25 mg) PO BID #90 09/08/23 09/27/24 Rx tabs isosorbide mononitrate 60 mg 60 mg PO QAM 10/31/23 09/27/24 History tablet,extended release 24 hr ipratropium 0.5 mg-albuterol 3 mg 3 ml inhalation Q2H PRN shortness 06/18/24 03/06/25 Rx (2.5 mg base)/3 mL nebulization of breath or wheezing #180 mL soln calcitriol 0.5 mcg capsule 0.5 mcg PO 3XWK #45 caps 02/22/24 09/27/24 Rx apixaban 2.5 mg tablet (Eliquis) 2.5 mg PO BID #180 tabs 04/09/24 09/27/24 Rx amoxicillin 500 mg capsule 2,000 mg (4 x 500 mg) PO ONCE #4 05/23/24 09/27/24 Rx caps Symbicort 160 mcg-4.5 2 puff inhalation BID #10.2 grams 06/04/24 09/27/24 Rx mcg/actuation HFA aerosol inhaler (budesonide-formoterol) albuterol sulfate 90 mcg/actuation 2 puff inhalation Q6H PRN 07/30/24 09/27/24 Rx aerosol inhaler Shortness Of Breath Or Wheezing #18 grams sodium bicarbonate 650 mg tablet 650 mg PO BID #60 tabs 07/31/24 09/27/24 Rx trazodone 50 mg tablet 50 mg PO HS #90 tabs 08/22/24 09/27/24 Rx epoetin kole 40,000 unit/mL 40,000 unit subcut UD 09/17/24 09/27/24 History injection solution benzonatate 200 mg capsule 200 mg PO TID PRN cough #90 caps 09/20/24 09/27/24 Rx oxycodone-acetaminophen 5 mg-325 0.5 tab PO Q4H PRN pain,dyspnea 1 09/20/24 09/27/24 Rx mg tablet (Percocet) month #90 tabs bumetanide 2 mg tablet 2 mg PO QAM 09/27/24 09/27/24 History lorazepam 0.5 mg tablet See Rx Instructions PO TID PRN 09/27/24 09/27/24 Rx anxiety #60 tabs potassium chloride 20 mEq 20 meq PO QAM 09/27/24 09/27/24 History tablet,extended release Patient History Medical History Pyoderma gangrenosum Hemorrhage from the ear Slow to wake up after anesthesia happened once time Hx of vertigo "none for quite some time, occurred when taking sulfa for her bladder problems" Acute respiratory failure with hypoxia hx-hospitalized 04/21/23 @[facility] Restrictive lung disease daily inh, inh and neb prn Atrial fibrillation with rapid ventricular response currently on eliquis; f/u dr. 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 H/O deep venous thrombosis 2019 Bilateral pulmonary embolism 2019, from DVT Surgical History H/O surgical biopsy 08/18/2023 non-healing lesion left cheek History of esophagogastroduodenoscopy (EGD) Hx of colonoscopy Hx of vein stripping Hx of hysterectomy Family History Mother Blood clot in vein Father Myocardial infarction Sister Blood clot in vein Breast cancer Aunt Blood clot in vein Son Prostate cancer Brother Esophageal cancer Brother FH: pancreatic cancer Denies family history of Ovarian cancer Colorectal cancer Social History Smoking Status: Never smoker Second Hand Exposure: No; Do You Dip or Chew Tobacco: No; Hx Alcohol Use: No Hx Substance Use: No Preferred Language: Namibian Communication Ability: Effective Communication Ability Comment: Patient is hard of hearing at this time and requires a white board. 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 How many Children do You have: 3 How many Children do You have Comment: Sons work close and assist pt with meals Other Information That Helps Us Care for You: No Feels Safe at Home: Yes Safety Concerns: Feels Safe At This Time Childhood Exposure to Second-Hand Smoke: Yes Diet: low salt caffeine: No Dental Care, Regularly: Yes Physical Activity Frequency: Does not Exercise Seatbelt Use: always Sunscreen Use: Yes Assistive Devices: Denture - Upper, Hearing Aid - Left, Oxygen - Continuous and Walker Physical Exam Physical Exam: Martha is lying semi reclined in bed Son and dtr in law present Martha is restless, agitated and pulling at her monitor leads, spencer, iv site She has increased resp effort She is delirious, lethargic, unable to follow commands scatt rhonchi with diminished lungs bilat tachy s1s2 abd +belly breathing, +grimacing with palpation gen weakness skin pale, dry, warm to touch Results & Data Vital Signs (Past 12 Hours) Vital Signs Temp Pulse Pulse Resp BP BP Pulse Ox 09/28/24 10:14 35.9 C L 142 H 12 140/83 94 09/28/24 09:54 147/76 H 09/28/24 07:45 36.6 C 146 H 32 H 134/68 92 09/28/24 05:54 132 H 152/76 H 09/28/24 05:00 124 H 132/80 09/28/24 03:35 36.6 C 104 H 16 139/77 94 09/28/24 02:40 122 H 09/28/24 00:56 96 H 130/72 09/28/24 00:31 109 H 138/82 09/27/24 23:15 36.6 C 123 H 16 147/83 H 93 09/27/24 23:15 09/27/24 23:15 36.6 C 123 H 16 147/83 H 93 O2 Del Method O2 Flow Rate 09/28/24 10:14 Nasal Cannula 2 09/28/24 09:54 09/28/24 07:45 Nasal Cannula 09/28/24 05:54 09/28/24 05:00 09/28/24 03:35 Room Air 09/28/24 02:40 09/28/24 00:56 09/28/24 00:31 09/27/24 23:15 Nasal Cannula 2 09/27/24 23:15 Nasal Cannula 2 09/27/24 23:15 Nasal Cannula 2 Laboratory Results 09/28/24 09/27/24 09/27/24 Range/Units 05:53 22:41 20:32 WBC 7.09 6.92 (4.8-10.8) K/ul RBC 3.07 L 3.13 L (4.20-5.40) M/uL Hgb 9.3 L 9.4 L (12.0-16.0) g/dl Hct 29.7 L 30.5 L (37.0-47.0) % MCV 96.7 97.4 (80.0-100.0) fL MCH 30.3 30.0 (25.0-34.0) pg MCHC 31.3 L 30.8 L (32.0-36.0) g/dL RDW Std Deviation 52.3 H 51.8 H (36.4-46.3) fL RDW Coeff of Alice 15.9 H 15.9 H (11.5-14.5) % Plt Count 199 182 (130-400) K/uL MPV 9.6 9.7 (9.4-12.4) fL Immature Gran % (Auto) 0.4 0.4 % Neut % (Auto) 79.9 70.4 % Lymph % (Auto) 13.4 15.3 % [place] % (Auto) 5.2 9.2 % Eos % (Auto) 0.7 4.3 % Baso % (Auto) 0.4 0.4 % Neut # (Auto) 5.66 4.86 (1.40-6.50) K/uL Lymph # (Auto) 0.95 L 1.06 L (1.20-3.40) K/uL [place] # (Auto) 0.37 0.64 H (0.11-0.59) K/uL Eos # (Auto) 0.05 0.30 (0.00-0.50) K/uL Baso # (Auto) 0.03 0.03 (0.00-0.20) K/uL Immature Gran # (Auto) 0.03 0.03 (0.01-0.20) K/uL PT 12.0 (9.0-12.0) Seconds INR 1.1 (0.9-1.1) APTT 30 (21-31) Seconds PTT Ratio 1.1 Sodium 139 138 (136-145) mmol/L Potassium 4.1 3.8 (3.5-5.1) mmol/L Chloride 110 H 109 H (98-107) mmol/L Carbon Dioxide 18 L 21 (21-32) mmol/L Anion Gap 11 8 (3-11) BUN 67 H 68 H (6-23) mg/dl Creatinine 3.54 H 3.56 H (0.6-1.2) mg/dl Est Cr Clr Drug Dosing 10.6 10.5 ml/min eGFR 12.34 12.26 BUN/Creatinine Ratio 18.9 19.1 (10-20) Glucose 132 H 100 H (70-99(Fasting)) mg/dl Estimat Average Glucose 111 mg/dl Hemoglobin A1c 5.5 (4.5-5.6) % Calcium 9.1 9.4 (8.6-10.3) mg/dl Magnesium 2.0 (1.7-2.4) mg/dl Total Bilirubin 0.5 (0.2-1.0) mg/dl AST 12 L (13-39) U/L ALT 11 (7-52) U/L Alkaline Phosphatase 86 (34-104) U/L Troponin I High Sens 99.3 H* 95.4 H* D 105.7 H* (0-14) pg/ml Total Protein 7.3 (6.0-8.3) gm/dl Albumin 3.8 (3.4-5.0) gm/dl Globulin 3.5 (2.5-4.0) gm/dl Albumin/Globulin Ratio 1.1 (0.9-2) Triglycerides 114 (0-150) mg/dl Cholesterol 163 (0-200) mg/dl LDL Cholesterol, Calc 99 mg/dl VLDL Cholesterol, Calc 23 (0-30) mg/dl HDL Cholesterol 41 mg/dl Cholesterol/HDL Ratio 4.0 (0-5) Blood Type A Positive Antibody Screen NEGATIVE Diagnostic Findings Chest X-Ray 09/27/24 20:30 Exam(s): XR CXR 1 VIEW EXAM: XR Chest, 1 View CLINICAL HISTORY: Reason for exam: neuro deficit, acute stroke suspected. TECHNIQUE: Frontal view of the chest. COMPARISON: Chest x-ray 09/13/2024 FINDINGS: Lungs: Multifocal interstitial and airspace opacities which has progressed at the left base. Pleural space: Bilateral pleural effusions. Heart: Unremarkable. No cardiomegaly. IMPRESSION: 1. Multifocal interstitial and airspace opacities which has progressed at the left base. 2. Bilateral pleural effusions. Electronically signed by: Raheem Steve MD 09/27/24 21:[address] 09/27/24 20:30 CR Exam(s): CT HEAD Without Contrast EXAM: CT Head Without Intravenous Contrast CLINICAL HISTORY: Reason for exam: neuro deficit, acute stroke suspected. TECHNIQUE: Axial computed tomography images of the head/brain without intravenous contrast. CTDI is 64.12 mGy and DLP is 962.98 mGy-cm. Automated exposure control was utilized for the study. A dose lowering technique was utilized adhering to the principles of ALARA. COMPARISON: No relevant prior studies available. FINDINGS: Artifacts: Images are degraded by motion artifact. Brain: No intracranial hemorrhage, mass-effect, or cerebral edema. Global parenchymal atrophy. Ventricles: Unremarkable. Bones/joints: Unremarkable. No fracture. Soft tissues: Unremarkable. Sinuses: No acute sinusitis. Mastoid air cells: Unremarkable as visualized. IMPRESSION: 1. No acute intracranial abnormality. Consider MRI if there is persistent concern. Communications: Call Doctor Stroke Electronically signed by: Raheem Steve MD 09/27/24 20:51 PM Chest X-Ray 09/28/24 08:22 XR chest 1V portable CLINICAL HISTORY: dyspnea COMPARISON STUDY: 09/27/2024 FINDINGS: Stable cardiomegaly with pulmonary vascular congestion consistent with CHF. Stable bilateral pleural effusions and associated lung base consolidation, left greater than right. Stable oval masslike opacity at the right mid lung. Stable scattered small nodular densities in both lungs. No pneumothorax. IMPRESSION: Stable exam. ACT 112: Negative or not required by law. Electronically signed by: Abilio [facility] M.D. 09/28/2024 9:00 AM PG Care Time/CCT Total # of Minutes Spent Total Time Spent with Patient: Total time spent is greater than 50% in coordination of care (as documented) at patient's floor/unit and/or counseling patient: I spent 105 minutes overall addressing this case: 15 min in medical data review/discussion with referring provider(s) and/or preparation for the visit 15 min in direct interaction with the patient/exam 45 min in Advance Care Planning/Goals of Care discussions as detailed above in note (must be >16min) 15 min in subsequent review and synthesis of assessment and plan 15 min communicating with other providers regarding the patient's case: primary team, nursing Advanced Care Planning 45998 Advanced Care Planning 30 Min 58044 Advanced Care Planning Additional 30 [place] [address] IN/OBS CONSULT LVL 4,60M (25 - SIGNIFICANT, SEPARATELY IDENTIFIABLE ) Patient Type New Diagnoses Dyspnea and respiratory abnormalities R06.00; R06.89 Altered mental status R41.82 Discussion about advance care planning held with family member Z71.0 Palliative care by specialist Z51.5 Cancer related pain G89.3 Metastatic adenocarcinoma C79.9 Additional Codes Advanced Care Planning - 87189 Advanced Care Planning 30 Min: 99462 Advanced Care Planning 30 Min ([id number]) Advanced Care Planning - 06781 Advanced Care Planning Additional 30 Min: 85245 Advanced Care Planning Additional 30 Min ([id number]) Comment [id number], [id number]
[2024-09-28] MEDS: LORazepam 2 MG/1 ML VIAL ONE (10:37)
[2024-09-28] MEDS: MoRPHine SULFATE 2 MG/ML CARP IV PRN ×2 (10:50→13:44)
--- NOTE | 2024-09-28 12:34 | Electrocardiogram Report ---
Test Reason : Blood Pressure : */* mmHG Vent. Rate : 146 BPM Atrial Rate : 156 BPM P-R Int : * ms QRS Dur : 68 ms QT Int : 276 ms P-R-T Axes : * 77 110 degrees QTcB Int : 430 ms Poor data quality, interpretation may be adversely affected Atrial fibrillation with rapid ventricular response with premature ventricular or aberrantly conducte d complexes Diffuse Nonspecific T wave abnormality Abnormal ECG When compared with ECG of 27-Sep-2024 20:46, HR has increased by 21 bpm Confirmed by Danny Hinds ([id number]) on 09/28/2024 12:34:07 PM Referred By: REFERRED SELF Confirmed By: Danny Hinds
[2024-09-28] MEDS: LORazepam 2 MG/1 ML VIAL IV PRN (13:09)
[2024-09-28] MEDS ORDERED: AMIODARONE / D5W 360 MG/200 ML BAG IV SCH (14:45)
--- NOTE | 2024-09-28 18:28 | Hospitalist Progress Note ---
Date of Service September 28, 2024 Assessment & Plan (1) Atrial fibrillation with rapid ventricular response: (2) Cerebrovascular accident: (3) Stage IV adenocarcinoma of lung: (4) Heart failure: (5) Chronic kidney disease, stage V: (6) Hypertension: Plan 84yo right-hand dominant female with history of PAF on Eliquis, Stage IV adenocarcinoma of the lung, HTN, HLP and CKD presenting with left facial droop, dysarthria, LUE/LLE weakness. CT of the head unremarkable. Patient not a candidate for TNK due to Eliquis therapy. Patient was admitted to med/telemetry floor. Patient developed tachycardia overnight and additional Lopressor was deferred at that time due to to CVA. Patient became progressively more dyspneic and was in active respiratory distress. A stat EKG revealed atrial fibrillation with RVR. Stat chest x-ray revealed stable bilateral pleural effusions, cardiomegaly, lung mets which is unchanged. Patient was on supplemental oxygen and given a dose of IV metoprolol 5 mg, IV Bumex 2 mg, IV amiodarone bolus and drip prior to daughter's arrival. Patient and daughter decided that they would like no further interventions and would like to move to comfort measures only. Patient is established with Dr. Zavaleta for palliative care. She was consulted and saw patient and family at the bedside. SODA JERKER orders/interventions have been modified. and family has decided that if patient is not worsening and more comfortable tomorrow, she would like to be discharged home with hospice discharge plan. Order has been placed and case management has met with family. Code - DNR/DNI per discussion with patient and daughter Admission and Anticipated Discharge Date Admission Date: September 27, 2024 Supervising Physician Co-Signing Physician Notes 84-year-old woman with metastatic lung cancer who was admitted with acute ischemic stroke. Admission head CT was negative however on exam she has obvious left hemiplegia which is consistent with right MCA territory infarct. She has a history of atrial fibrillation and is normally on metoprolol and apixaban at baseline. Overnight she was maintained on metoprolol 5 mg IV every 6 hours because she was n.p.o. for stroke/dysphagia evaluation, and apixaban was held because of acute stroke. Early this morning we were paged that she was in rapid atrial fibrillation and in respiratory distress. She had acute respiratory failure caused by acute pulmonary edema, there may also have been component of aspiration pneumonitis, in addition she has multiple pulmonary metastases from her lung cancer at baseline. On my examination she was in severe respiratory distress, tachypneic and 30s40s, increased oxygen requirement, restless, she had coarse bilateral breath sounds as well as expiratory wheezes, JVP appears elevated, she has a left hemiparesis with a left facial droop some dysarthria is unable to move her left upper extremity or left lower extremity at all, upgoing toe on left, right-sided strength is intact and speech is intact though limited, extremities are cool and mottled. We obtained stat EKG which showed atrial fibrillation with rapid rate, ordered additional metoprolol 5 mg IV, Bumex 2 mg IV stat for acute pulmonary edema and acute respiratory failure, transfer to PCU for amiodarone bolus and drip, Consider BiPAP if within her goals of care. shortly later in the morning her daughter arrived at bedside goals of care conversation was held and Martha and her daughter elected for comfort measures only. Dr. Zavaleta was consulted and entered appropriate comfort care orders Subjective Patient unable to give history due to her medical state. Since admission, she developed tachycardia overnight and -V-o-g-t-n-d-s-o-r- -w-a-s- -c-d-l-e-r-r-e-d- -i-n- -t-h-e- -g-z-w-t-i-n-g- -o-f- -a-c-u-t-e- -C-V-A-. She had been on IV metoprolol 5 mg q6h scheduled because of acute CVA and npo status. This morning, tachycardia seemed to worsen along with progressive dyspnea. Once patient's daughter arrived, a discussion was made about further interventions as patient is a DNR code and established with palliative care, has metastatic lung cancer. The patient and daughter decided they wanted no additional measures to be done and wanted comfort measures only. Patient's daughter expressed no questions or concerns. Review of Systems Review of Systems: Unable to obtain Physical Exam Physical Exam: General: Distressed and gasping HEENT: normocephalic, atraumatic; no scleral icterus; vision and hearing grossly intact Neck: supple; no lymphadenopathy; trachea midline Skin: Cool extremities. Mottling noted on the toes bilaterally CV: chest wall NTP; irregular rhythm with tachycardic rate. Systolic murmur present Lungs: Acute respiratory distress present. Intercostal and abdominal retractions present. Rales present bilaterally. ABD: Soft,no distention MSK: no tics or fasciculations; no edema noted in the LEs b/l, nonerythematous. Patient unable to move left upper extremity/left lower extremity Neuro: A&Ox3; speech difficult due to respiratory status; positive Babinski reflex on left. Results & Data Results & Data Vital Signs (Past 12 Hours) Vital Signs Temp Pulse Resp BP Pulse Ox O2 Del Method O2 Flow Rate 09/28/24 10:14 96.6 F L 142 H 12 140/83 94 Nasal Cannula 2 09/28/24 09:54 147/76 H 09/28/24 07:45 97.9 F 146 H 32 H 134/68 92 Nasal Cannula Laboratory Results CBC, chemistries reviewed Diagnostic Findings CT, chest x-ray, ECG reviewed PG Care Time/CCT Total # of Minutes Spent Total Time Spent with Patient: Total time spent is greater than 50% in coordination of care (as documented) at patient's floor/unit and/or counseling patient: Coding Level of Care Code None Diagnoses Atrial fibrillation with rapid ventricular response I48.91 Cerebrovascular accident I63.9 Stage IV adenocarcinoma of lung C34.90 Heart failure I50.9 Chronic kidney disease, stage V N18.5 Hypertension I10
[2024-09-28] MEDS ORDERED: CALCITRIOL 0.25 MCG CAPSULE PO SCH (21:00)
[2024-09-28] MEDS ORDERED: traZODone HCL 50 MG TAB PO SCH (21:00)
[2024-09-29] MEDS: ONDANSETRON INJ 2 MG/ML 2 ML VIAL IV PRN (10:28)
--- NOTE | 2024-09-29 14:50 | Billing Data ---
Date of Service September 28, 2024 Coding Level of Care Code 80856 SUB INP/OBS CARE MIN
--- NOTE | 2024-09-29 15:07 | Billing Data ---
Date of Service September 29, 2024 Coding Level of Care Code 85902 INT INP/OBS CARE
--- NOTE | 2024-09-29 15:07 | Hospitalist Progress Note ---
Date of Service September 29, 2024 Assessment & Plan (1) Atrial fibrillation with rapid ventricular response: (2) Cerebrovascular accident: (3) Stage IV adenocarcinoma of lung: (4) Heart failure: (5) Chronic kidney disease, stage V: (6) Hypertension: Plan 84yo right-hand dominant female with history of PAF on Eliquis, Stage IV adenocarcinoma of the lung, HTN, HLP and CKD who was admitted with left hemiplegia consistent with right MCA stroke. CT of the head unremarkable. She was not a candidate for TNK due to Eliquis therapy. Overnight 09/28-09/29 she developed rapid atrial fibrillation and by morning of 09/29 acute hypoxic respiratory failure caused by acute pulmonary edema / acute diastolic heart failure. Treated with increased IV metoprolol and IV bumex, transferred to PCU. Shortly after Martha's daughter arrived and they decided to transition to comfort care. Based on her clinical course and improvement today I do not see evidence of aspiration pneumonia/pneumonitis. I reviewed TTE from yesterday AM - EF 65-70%, RV pressure/vol overload, no rwma, mild , mod-severe MR, dilated IVC consistent with increased CVP. -continue comfort measures only -responding well to morphine 2 mg IV intermittent dosing, distress has resolved, WOB comfortable -can continue to use bumex 2 mg IV as needed for acute dyspnea if needed for comfort, as well as metoprolol IV PRN if tachycardia is causing her discomfort - asymptomatic at this time -removed spencer because of discomfort -bowel regimen PRN -transfer to med/surg unit. 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 Malignant pleural effusions Acute on chronic diastolic heart failure PAF, Atrial fibrillation with RVR Acute hypoxic respiratory failure severe MR Mild aortic stenosis CKD stage 4, secondary hyperparathyroidism type 2 nstemi / myocardial demand ischemia COPD Pulmonary hypertension Thrombophilia, lupus anticoagulant and active cancer on chronic anticoagulation Admission and Anticipated Discharge Date Admission Date: September 27, 2024 Subjective Martha has been resting comfortably this morning she has been verbal her only complaint is pain from the Spencer catheter which we are removing she continues to be hemiplegic her respiratory distress has resolved and she is comfortable on a low amount of nasal cannula oxygen and morphine intermittent dosing as needed she remains tachycardic but does not seem to be symptomatic from this her daughter arrived to bedside during my visit and we discussed the plan of care Physical Exam Physical Exam: PHYSICAL EXAMINATION Last 24h vital signs reviewed, see documentation in flowsheet General: frail elderly woman, comfortable appearing, no distress HEENT: Normocephalic, atraumatic, pupils round and equal, sclerae anicteric, no conjunctival injection, dry mucus membranes Lungs: comfortable respiratory effort, slightly coarse bilaterally anteriorly Heart: tachycardic and irregular Abdomen: Soft, nontender, nondistended. Bowel sounds present. Extremities: Warm, dry, well-perfused. No extremity edema. extremities are now warm Neuro: Alert and oriented to situation verbal and able to make needs known, dysarthric, left facial droop, left upper extremity and left lower extremity hemiparesis, moves right upper extremity and right lower extremity purposefully with good strength Psych: Normal affect and behavior Results & Data Results & Data Vital Signs (Past 12 Hours) Vital Signs O2 Del Method O2 Flow Rate 09/29/24 10:30 Nasal Cannula 2 PG Care Time/CCT Total # of Minutes Spent Total Time Spent with Patient: Total time spent is greater than 50% in coordination of care (as documented) at patient's floor/unit and/or counseling patient: Coding Level of Care Code 75593 SUB INP/OBS CARE 2/35MIN Diagnoses Atrial fibrillation with rapid ventricular response I48.91 Cerebrovascular accident I63.9 Stage IV adenocarcinoma of lung C34.90 Heart failure I50.9 Chronic kidney disease, stage V N18.5 Hypertension I10
[2024-09-29] MEDS ORDERED: bisacodyL 10 MG SUPP PR PRN (15:08)
[2024-09-29] MEDS ORDERED: SOD PHOSPHATE/SOD BIPHOSPHATE ENEMA 132 ML BTL PR PRN (15:09)
[2024-09-29] MEDS ORDERED: ALBUT/IPRATROP 3MG/0.5MG NEB 3 ML VIAL NEB PRN (15:10)
[2024-09-29] MEDS ORDERED: LEVALBUTEROL 1.25 MG/3 ML NEB NEB PRN (15:11)
[2024-09-30] MEDS: LORazepam 2 MG/1 ML VIAL IV PRN (11:56)
[2024-09-30] MEDS: FUROSEMIDE 40 MG/4 ML VIAL IV ONE (13:38)
[2024-09-30] MEDS: METOPROLOL TARTRATE 25 MG TAB PO SCH (15:43)
--- NOTE | 2024-09-30 17:07 | Hospitalist Progress Note ---
Date of Service September 30, 2024 Assessment & Plan (1) Atrial fibrillation with rapid ventricular response: (2) Cerebrovascular accident: (3) Stage IV adenocarcinoma of lung: (4) Heart failure: (5) Chronic kidney disease, stage V: (6) Hypertension: Plan 84yo right-hand dominant female with PAF on Eliquis, Stage IV adenocarcinoma of the lung, HTN, HLP and CKD who was admitted with left hemiplegia consistent with right MCA stroke. CT of the head unremarkable. She was not a candidate for TNK due to Eliquis therapy. Overnight 09/28-09/29 she developed rapid atrial fibrillation and by morning of 09/29 acute hypoxic respiratory failure caused by acute pulmonary edema / acute diastolic heart failure. Treated with increased IV metoprolol and IV bumex, transferred to PCU. Shortly after Martha's daughter arrived and they decided to transition to comfort care. Based on her clinical course I do not see evidence of aspiration pneumonia/pneumonitis. TTE from 09/29 - EF 65-70%, RV pressure/vol overload, no rwma, mild , mod-severe MR, dilated IVC consistent with increased CVP. -continue comfort measures only -responding well to lorazepam 0.5 IV and morphine 2 mg IV intermittent dosing, her daughter reports the dosing intervals are little too long I decreased these to every 2 hours as needed she has acute on chronic heart failure and rapid atrial fibrillation this may be driving some of her dyspnea, ordered Toprol all tartrate 25 mg p.o. twice daily which can be crushed and Lasix 40 mg IV x 1 today -removed spencer because of discomfort -bowel regimen PRN - her daughter reports that they may may wish to return home with hospice depending on how things go, I added sublingual lorazepam 1 mg every 2 hours as needed and, concentrated oral morphine 5 mg sublingual every 2 hours as neededwe plan to start a trial of this today to do some dose finding and see if her symptoms can be controlled without intravenous medications I updated her daughter and WILIAN at bedside today Diagnoses this admission: Acute ischemic stroke - presumed to be right MCA territory stroke, follow up neuroimaging not obtained because of goals of care 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 Malignant pleural effusions Acute on chronic diastolic heart failure PAF, Atrial fibrillation with RVR Acute hypoxic respiratory failure severe MR Mild aortic stenosis CKD stage 4, secondary hyperparathyroidism type 2 nstemi / myocardial demand ischemia COPD Pulmonary hypertension Thrombophilia, lupus anticoagulant and active cancer on chronic anticoagulation Admission and Anticipated Discharge Date Admission Date: September 27, 2024 Subjective Martha is able to speak a limited amount 1 or 2 words or a phrase, seems like she feels constipated and would like to poop, she has had dyspnea which is improved mostly with lorazepam has also had some IV morphine doses remains tachycardic in A-fib Physical Exam Physical Exam: PHYSICAL EXAMINATION Last 24h vital signs reviewed, see documentation in flowsheet General: lying in bed awake and alert HEENT: moist mucous membranes Lungs: mildly increased work of breathing, bilateral crackles Heart: tachycardic and irregularly irregular Abdomen: Soft, nontender, nondistended. Bowel sounds present. Extremities: Warm, dry, well-perfused. No extremity edema. extremities are cool Neuro: Alert and oriented to situation verbal and able to make needs known, dysarthric, left facial droop, left upper extremity and left lower extremity hemiparesis, moves right upper extremity and right lower extremity purposefully with good strength Psych: Normal affect and behavior Results & Data Results & Data Vital Signs (Past 12 Hours) Vital Signs O2 Del Method O2 Flow Rate 09/30/24 07:25 Nasal Cannula 2 PG Care Time/CCT Total # of Minutes Spent Total Time Spent with Patient: Total time spent is greater than 50% in coordination of care (as documented) at patient's floor/unit and/or counseling patient: Coding Level of Care Code 41217 SUB INP/OBS CARE 2/35MIN Diagnoses Atrial fibrillation with rapid ventricular response I48.91 Cerebrovascular accident I63.9 Stage IV adenocarcinoma of lung C34.90 Heart failure I50.9 Chronic kidney disease, stage V N18.5 Hypertension I10
[2024-09-30] MEDS: LORazepam 1 MG TAB SL PRN (17:12)
[2024-09-30] MEDS ORDERED: LORazepam 1 MG TAB SL PRN (18:53)
[2024-09-30] MEDS: MoRPHine SULFATE 10 MG/0.5 ML UDP SL PRN (20:41)
[2024-09-30] MEDS: METOPROLOL TARTRATE 50 MG TAB PO SCH (20:45)
[2024-09-30] MEDS: MoRPHine SULFATE 4 MG/ML 1 ML CARP\\VIAL IV PRN (21:06)
[2024-10-01] MEDS ORDERED: STAT IV Infusion **Titration per Protocol STA (10:15)
[2024-10-01] MEDS ORDERED: MoRPHine BOLUS from BAG IV PRN (10:45)
--- NOTE | 2024-10-01 10:58 | Palliative Care Progress Note ---
Date of Service October 01, 2024 Assessment & Plan (1) Dyspnea and respiratory abnormalities: Plan: Martha is having increased respiratory distress and a variable respiratory pattern. She is beginning to use her accessory muscles and abdominal muscles as part of her increased respiratory effort. At this time we will transition her to a morphine infusion for comfort. This was discussed with her daughter Maggie at the bedside who is in agreement. Maggie is an RN who is also a former cognos administrator. She feels that this is the plan of care most in line with patient's preferences and wishes to assure comfortable end-of-life process and freedom for any suffering or distress. (2) Cancer related pain: (3) Altered mental status: (4) Discussion about advance care planning held with family member: Plan: 25-minute discussion was held with bedside [id number] with patient's daughter Maggie who is an RN and former hospice nurse. Patient is not able to participate in this discussion due to alterations in mental status and consciousness. She has beginning to demonstrate increasing respiratory distress and changes in her respiratory pattern. We reviewed the utilization of her as n eeded morphine and agreed to transition her to a low-dose morphine infusion and continue the as needed administration options as needed. We also discussed that she is likely in the active stages of dying with an anticipated survival of a few days. It is unlikely she will be able to be transported home due to her continued and steady decline. A general inpatient hospice admission consult has been requested and they are anticipated to arrive later this morning. Maggie is in agreement with this plan and all questions were answered to her apparent satisfaction. (5) Cerebrovascular accident: (6) Cough: (7) Stage IV adenocarcinoma of lung: (8) Palliative care by specialist: Admission and Anticipated Discharge Date Admission Date: September 27, 2024 Subjective Martha remains on comfort care and is seen at the bedside together with her daughter Maggie present. Maggie shares that she had a very good weekend, moments of good clarity and lucidity and was able to enjoy visitation with various families and friends. She notes that patient started to steadily decline from yesterday and has been unresponsive. At the time of my visit, she has increased respiratory effort with use of accessory muscles noted. There is mild gurgling. She is not responsive to voice. At times there is mild grimacing noted. Review of Systems Review of Systems: Unobtainable due to reduced consciousness Physical Exam Physical Exam: Martha is lying semi reclined in bed Occasional frowning and grimacing She has increased resp effort, + use of accessory muscles, + mild gurgling She is unable to follow commands tachy s1s2 abd +belly breathing, +grimacing with palpation gen weakness skin pale, dry, warm to touch Results & Data Laboratory Results FACILITIES CLERK, no new labs Diagnostic Findings FACILITIES CLERK, no new diagnostics PG Care Time/CCT Total # of Minutes Spent Total Time Spent: 75 Total Time Spent with Patient: Total time spent is greater than 50% in coordination of care (as documented) at patient's floor/unit and/or counseling patient: Advanced Care Planning 74965 Advanced Care Planning 30 Min [place] [address] SUB INP/OBS CARE 3/50MIN (25 - SIGNIFICANT, SEPARATELY IDENTIFIABLE ) Patient Type Established Medical Decision Making High Complexity Diagnoses Dyspnea and respiratory abnormalities R06.00; R06.89 Cancer related pain G89.3 Altered mental status R41.82 Discussion about advance care planning held with family member Z71.0 Cerebrovascular accident I63.9 Cough R05.9 Stage IV adenocarcinoma of lung C34.90 Palliative care by specialist Z51.5 Additional Codes Advanced Care Planning - 08042 Advanced Care Planning 30 Min: [id number] Advanced Care Planning 30 Min ([id number])
[2024-10-01] MEDS: MoRPHine SULF 100 MG/100 ML BAG IV SCH (10:59)
[2024-10-01] MEDS: MoRPHine BOLUS from BAG IV ONE (11:10)
--- NOTE | 2024-10-01 16:38 | Hospitalist Progress Note ---
Date of Service October 01, 2024 Assessment & Plan (1) Atrial fibrillation with rapid ventricular response: (2) Cerebrovascular accident: (3) Stage IV adenocarcinoma of lung: (4) Heart failure: (5) Chronic kidney disease, stage V: (6) Hypertension: Plan 84yo right-hand dominant female with PAF on Eliquis, Stage IV adenocarcinoma of the lung, HTN, HLP and CKD who was admitted with left hemiplegia consistent with right MCA stroke. CT of the head unremarkable. She was not a candidate for TNK due to Eliquis therapy. Overnight 09/28-09/29 she developed rapid atrial fibrillation and by morning of 09/29 acute hypoxic respiratory failure caused by acute pulmonary edema / acute diastolic heart failure. Treated with increased IV metoprolol and IV bumex, transferred to PCU. Shortly after Martha's daughter arrived and they decided to transition to comfort care. Based on her clinical course I do not see evidence of aspiration pneumonia/pneumonitis. TTE from 09/29 - EF 65-70%, RV pressure/vol overload, no rwma, mild , mod-severe MR, dilated IVC consistent with increased CVP. -continue comfort measures only - her respiratory failure has progressed and measures taken yesterday were not effective in controlling her dyspnea this included addition of oral morphine and lorazepam, beta-roxie and a dose of IV Lasix. she is now on a morphine drip and no longer alert, life expectancy at this point is several days. We have made a inpatient hospice referral - continue morphine infusion and as needed IV lorazepam for control of dyspnea I updated her daughter and large family present at bedside today, discussed plan of care with Dr. 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 Malignant pleural effusions Acute on chronic diastolic heart failure PAF, Atrial fibrillation with RVR Acute hypoxic respiratory failure severe MR Mild aortic stenosis CKD stage 4, secondary hyperparathyroidism type 2 nstemi / myocardial demand ischemia COPD Pulmonary hypertension Thrombophilia, lupus anticoagulant and active cancer on chronic anticoagulation Admission and Anticipated Discharge Date Admission Date: September 27, 2024 Subjective breathing pattern progressed overnight, increased respiratory distress, no longer alert morphine continuous infusion was started today after discussion between her daughter and palliative care provider currently Martha is resting comfortably she is not awake there is a large family gathering in the room Physical Exam Physical Exam: PHYSICAL EXAMINATION Last 24h vital signs reviewed, see documentation in flowsheet General: not awake, appears comfortable HEENT: dry mucous membranes Lungs: comfortable work of breathing posterior crackles are present Heart: remains tachycardic and irregular Abdomen: Soft, nontender, nondistended. Bowel sounds present. Extremities: Warm, dry, well-perfused. No extremity edema. Neuro: no longer awake, does not open eyes to voice or gentle physical exam Results & Data Results & Data Vital Signs (Past 12 Hours) Vital Signs O2 Del Method 10/01/24 09:00 Nasal Cannula PG Care Time/CCT Total # of Minutes Spent Total Time Spent with Patient: Total time spent is greater than 50% in coordination of care (as documented) at patient's floor/unit and/or counseling patient: Coding Level of Care Code 78945 SUB INP/OBS CARE 08/18MIN Diagnoses Atrial fibrillation with rapid ventricular response I48.91 Cerebrovascular accident I63.9 Stage IV adenocarcinoma of lung C34.90 Heart failure I50.9 Chronic kidney disease, stage V N18.5 Hypertension I10
--- NOTE | 2024-10-02 15:30 | Hospitalist Progress Note ---
Date of Service October 02, 2024 Assessment & Plan (1) Atrial fibrillation with rapid ventricular response: (2) Cerebrovascular accident: (3) Stage IV adenocarcinoma of lung: (4) Heart failure: (5) Chronic kidney disease, stage V: (6) Hypertension: Plan 84yo right-hand dominant female with PAF on Eliquis, Stage IV adenocarcinoma of the lung, HTN, HLP and CKD who was admitted with left hemiplegia consistent with right MCA stroke. CT of the head unremarkable. She was not a candidate for TNK due to Eliquis therapy. Overnight 09/28-09/29 she developed rapid atrial fibrillation and by morning of 09/29 acute hypoxic respiratory failure caused by acute pulmonary edema / acute diastolic heart failure. Treated with increased IV metoprolol and IV bumex, transferred to PCU. Shortly after Martha's daughter arrived and they decided to transition to comfort care. Based on her clinical course I do not see evidence of aspiration pneumonia/pneumonitis. -continue comfort measures only - her respiratory failure has progressed and measures taken yesterday were not effective in controlling her dyspnea this included addition of oral morphine and lorazepam, beta-roxie and a dose of IV Lasix. she is now on a morphine drip and no longer alert, life expectancy at this point is several days. 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 Accompanied by family at the bedside. Per family, patient appears comfortable. Review of Systems Review of Systems: All systems reviewed & are unremarkable except as noted in Subjective Physical Exam Physical Exam: General appearance: Patient is sleeping. Appears comfortable. Results & Data Results & Data Vital Signs (Past 12 Hours) Vital Signs O2 Del Method O2 Flow Rate 10/02/24 07:50 Nasal Cannula 2 PG Care Time/CCT Total # of Minutes Spent Total Time Spent with Patient: Total time spent is greater than 50% in coordination of care (as documented) at patient's floor/unit and/or counseling patient: Coding Level of Care Code 35648 SUB INP/OBS CARE 235MIN Diagnoses Atrial fibrillation with rapid ventricular response I48.91 Cerebrovascular accident I63.9 Stage IV adenocarcinoma of lung C34.90 Heart failure I50.9 Chronic kidney disease, stage V N18.5 Hypertension I10
--- NOTE | 2024-10-02 16:54 | Communication Note ---
Date of Service: October 02, 2024 [facility] Med Brief Note Chart reviewed MAR assessed remains in ADMISSIONS OFFICER, MS gtt with good relief of air hunger and grimacing/discomfort No changes today Thank you for allowing us to participate in the ongoing care of this patient. Please page with any additional concerns. Opal Bedoya DNP Director, Palliative Medicine
--- NOTE | 2024-10-03 13:18 | Discharge Summary ---
Discharge Summary Date of Service October 02, 2024 Principal Dx & Hospital Course #1 = Principal Diagnosis (1) : This pt 10/02/24 from Right MCA ischemic stroke at 1815 hours (2) Atrial fibrillation with rapid ventricular response: (3) Cerebrovascular accident: (4) Stage IV adenocarcinoma of lung: (5) Heart failure: (6) Chronic kidney disease, stage V: (7) Hypertension: Plan 84yo right-hand dominant female with PAF on Eliquis, Stage IV adenocarcinoma of the lung, HTN, HLP and CKD who was admitted with left hemiplegia consistent with right MCA stroke. CT of the head unremarkable. She was not a candidate for TNK due to Eliquis therapy. Overnight 09/28-09/29 she developed rapid atrial fibrillation and by morning of 09/29 acute hypoxic respiratory failure caused by acute pulmonary edema / acute diastolic heart failure. Treated with increased IV metoprolol and IV bumex, transferred to PCU. Shortly after Martha's daughter arrived and they decided to transition to comfort care. Based on her clinical course I do not see evidence of aspiration pneumonia/pneumonitis. 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 Patient lives at home alone and is fairly independent. She has family close by that check on her frequently as well as caretakers in the home. Patient reports walking to the bathroom this afternoon around 16:00. At 17:30 her corporate safety coordinator found her with left sided facial droop and slurred speech as well as weakness of the LUE, LLE. Daughter is at bedside and provides additional history. Patient reports "feeling off" today but otherwise denies fever, chills, chest pain, palpitations, cough, SOB, nausea, vomiting, diarrhea. 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 In the ER patient afebrile, atrial fibrillation with RVR ER Course: ASA 300mg ME Zofran 4mg IV Discharge Exam Pt was pronounced by nursing staff Discharge Plan Discharge Items Patient Disposition: Other Date/Time: 10/02/24 18:25 Hospital Stay Data Consultations 09/27/24 20:52 ED Decision to Admit Stat 09/28/24 10:28 Consult Palliative Care Stat Diagnostic Imagining Performed 09/27/24 20:30 CT head/brain wo con Stat Total Time Total Time Spent Total Time Spent (In Minutes): less than 30 minutes Coding Level of Care Code None Diagnoses R99 Atrial fibrillation with rapid ventricular response I48.91 Cerebrovascular accident I63.9 Stage IV adenocarcinoma of lung C34.90 Heart failure I50.9 Chronic kidney disease, stage V N18.5 Hypertension I10
--- NOTE | 2024-10-03 13:30 | Palliative Family Discussion ---
Date of Service October 03, 2024 Patient Directed Conference Time of Meeting: [] Participants: Massiel Bedoya DNP Patient participation: [] Patient Support System: [] Other Healthcare Provider Participation: None Meeting Location: [] Advanced Directive available: [Yes/No] If yes, descriptors: The patient's surrogate medical decision maker participated: [] Legally authorized health care proxy: [] Other surrogate: [] A family meeting was held for JAZMÍN CARPENTER. This meeting was necessary for d etermining the appropriate course of treatment. Topics of Discussion Topics of Discussion: 1. [] 2. [] 3. [] Other Content of Meetin. Opportunity given for participants to speak and ask questions. 2. Participants were assured of attention to patient comfort. 3. Reassurance provided. 4. Support was provided for informed, good-alberto decisions. 5. Emotions expressed by family were acknowledged and addressed. 6. Follow-up Outpatient: [] 7. Plan of Care: [] * Dying patients fear dyspnea and pain, therefore, symptom control is one cornerstone of pulmonary palliative care. Dyspnea is a prominent symptom of the patient with advanced respiratory disease of any cause: nearly all patients with COPD had dyspnea during the last 3 days of their lives. Providers routinely care for patients with chronic or advanced respiratory diseases and critical illnesses. The ATS recognizes: the growing importance an d complexity of palliative care for patients with life-threatening and life- limiting diseases and disorders and the need for improving professional competence and teamwork in providing such care. The statement strongly endorses the concept that palliative care should be available to patients at all stages of illness and should be individualized based on the needs and preferences of the patient and the patients family. Clinicians should consult with palliative care specialists as appropriate for managing palliative care situations beyond the clinicians level of competence. * (ATS Clinical Policy Statement: Palliative Care for Patients with Respiratory Diseases and Critical Illnesses; Abdullahi Driscoll, et al., for the [employer], the [employer], the [employer] [employer], and the Respiratory Society* Diagnosis and Management of Stable Chronic Obstructive Pulmonary Disease: A Clinical Practice Guideline Update from the [employer], [employer], [employer] [employer], and Respiratory Society . [employer]. 2011;155:179-191.) * Dying process: Discussed changes pt may move through in the dying process including but not limited to sleeping more, disorientation when awake, restlessness, diminished senses/inability to respond to stimulus although ability to be aware of them remains intact longer, and changes in body temperatures, skin changes/mottling/cyanosis, respiratory pattern changes, and oral secretions. Family verbalized understanding. The goal is to assure a peaceful . * EOL Rally: When a person facing the end of life rallies, they seem to become "more stable" - may want to talk or even begin taking PO; this phenomenon is usually seen as a sudden burst of energy before . This period of perking up can be accompanied by such a notable change in mental clarity that is often referred to as terminal lucidity. This change in cognition and behavior goes against everything families learn about the physical signs that the end of life is near. It is important to note that evidence-based data is elusive, if nonexistent. Theories support that it may be a search for a final, strong connection. Also, as organs shut down, they can release a steroid like compound that briefly rouses the body - in the specific case of brain tumors, swelling occurs in the confined space of the skull. The edema shrinks as EOL care patients are weaned off food and drink, waking up the brain a bit. Families and caregivers may grasp at what seems to be a turnaround in a loved ones health, however, the EOL Rally is a hallmark pre- sign. It is not uncommon for patients to show improvement before : they may want to talk while others may become restless or act as if they need to start preparing for a trip. Some patients will become more relaxed yet remain tuned in to what is going on around them, others will show signs of physical stability when, seconds before, they seemed on the verge of letting go. A rally can last for a few moments or even days. Short or long, these temporary improvements can have a profound effect on loved ones who are keeping ayers. Like a moment of clarity for someone who has dementia, a rally is one last opportunity to connect with a loved one. Each persons experience is unique and impossible to predict with total accuracy. Life is full of questions, and some of them simply are not meant to be answered. Read more: [email or web address] l * Oxygen at EOL: For patients at the end of life, oxygen delivered by a nasal cannula provides no additional symptomatic benefit for relief of refractory dyspnea in patients with life-limiting illness compared with room air: there's a point at which that the oxygen level gets so low that it's no longer compatible with life. By providing supplemental oxygen, the dying process will be unnecessarily prolonged. Please use less burdensome but more effective strategies such as comfort care meds, oscillating fan, massage, repositioning, etc. (Enio AP, Conner CF, Sylvia PA, et al. Effect of palliative oxygen versus room air in relief of breathlessness in patients with refractory dyspnoea: a double-blind, randomised controlled trial. Lancet. 2010;376(8500):784-793. doi:10.1016/C6893-9642(62)37656-4) * Secretions at EOL/management: I discussed with family that as the level of consciousness decreases in the dying process, patients lose their ability to swallow and clear oral secretions. As air moves over the secretions, which have pooled in the oropharynx and bronchi, the resulting turbulence produces noisy ventilation with each breath, described as gurgling or rattling noises. While there is no evidence that patients find this rattle disturbing, evidence from bereaved surveys suggests the noises can be disturbing to the patients visitors and caregivers who may fear that the patient is choking to . We recommend a combination of Non- Pharmacological and Pharmacological Treatments: * 1. Position the patient on their side or in a semi-prone position to facilitate postural drainage * 2. Communication with family and caregivers to reaffirm commitment to their loves ones care, reduce anxiety and fears. * 3. Gentle oropharyngeal suctioning is used although this can be ineffective when fluids are beyond the reach of the catheter. Avoid deep suctioning as it is very irritating. Note that frequent suctioning is disturbing to both the patient and the visitors. * 4. Reduction of fluid intake. * 5. Consider a 1-2 min Trendelenburg positioning, to move fluids up into the oropharynx for easier removal BUT note that ASPIRATION RISK WILL INCREASE. * 6. Muscarinic receptor blockers (anti-cholinergic drugs) are most often used: glycopyrrolate (Robinul), scopolamine (Transderm Scop), hyoscyamine and atropine. Of these, I prefer to using glycopyrrolate as first line treatment, because it is a quaternary amine (therefore does not cross the blood-brain barrier) which reduces the potential anti cholinergic agent associated OPTIMIZATION MANAGER toxicity (sedation, delirium). * 7. Glycopyrrolate has five times the anti-secretory potency compared to atropine, while scopolamine dries/thickens secretions and causes dry mouth, which may be more distressing to the patient and detract from comfort. Time Involved in Meeting: I spent [] minutes overall addressing this case: [] in medical data review/discussion with referring provider(s) and/or preparation for the visit [] in direct interaction with the patient [] [] Advance Care Planning/Goals of Care discussions as detailed above in note (must be >16min) [] in subsequent review and synthesis of assessment and plan [] in communicating with other providers regarding the patient's case: []
--- NOTE | 2024-10-03 13:31 | Advance Care Plan Prog Note ---
Advanced Care Planning Note Date of Discussion October 03, 2024 ACP Discussion Diagnoses requiring ACP discussion: [*] A [id number] discussion with the [*] regarding the patient's advanced care planning took place during this hospitalization on the above date. The discussion included the explanation and discussion of advance directives and associated forms/documents, as well as the patient's current code status. We also discussed at length the patient's medical conditions (both acute and chronic), general prognosis, treatment options, and goals of care. The following summarizes the discussion: [*] Total Time I spent a total of [*] minutes was spent on this discussion, including counseling, answering questions, and completing, if any, pertinent advanced care planning forms/documents.
== END 2024-10-02 19:45 | disposition expired | DRG 64 ==
LOC: ED 20:26 → 2W 21:32 → SUATTDRO 21:32 → 2W 22:56 → 4W 09-28 10:17 → 3W 09-29 10:50